=== PATIENT | male | born 1955 | race Caucasian/White ===

== ENCOUNTER → 2018-10-08 13:07 | Outpatient (CLI) | payer BC, SELFPAY ==
--- NOTE | 2018-10-08 14:05 | CA_ITS ---
PROCEDURE: 2-D M-mode and color Doppler study INDICATIONS FOR THE TEST: Chest pain COPD+ Heart Murmur Tobacco Smoking+ Palpitations Fatigue Syncope Edema+ Hypertension+Diabetes Mellitus Rheumatic Fever SOB+ENRIQUEZ Obesity Hyperlipidemia+ Family History HD Additional History CAD, PAD, CHF, ANGIOPLASTY, STENTS PATIENT INFORMATION HEIGHT: 68 WEIGHT:238 GENDER: Male B/P:138/76 2-D/M-MODE INTERPRETATION: 2-D MEASUREMENTS OBSERVED VALUES IN CMS Right Ventricular Dimension (RVDd) 2.7 Interventricular Septum (Thickness)(IVsd) 1.2 Left Ventricular Internal Dimensions(LVIDd) 5.6 Left Ventricular Posterior Wall (Thickness)(LVPWd) 1.0 Aortic Root 4.2 Aortic Cusp Separation 2.0 Left Atrial Dimensions (LAD) 3.8 2D 1. Left atrium is mildly enlarged, left ventricle is normal size, mild concentric left ventricular hypertrophy, visually estimated ejection fraction 55% with no regional wall motion abnormality. 2. The right atrium and right ventricle are mildly enlarged with normal contractility. 3. The aortic valve is minimally thickened and fibrosed. 4. The mitral and tricuspid valve are grossly normal. 5. The pulmonic valve is poorly visualized. 6. No significant pericardial effusion noted. DOPPLER INTERROGATION: Doppler interrogation of the aortic, mitral and tricuspid valvular presence of mild mitral and tricuspid regurgitation, tricuspid regurgitation jet velocity is inadequate for calculation of the right ventricular systolic pressure, grade 1 diastolic dysfunction seen with tissue Doppler evidence of raised left atrial pressure. CONCLUSION: 1. Mildly enlarged left atrium, normal left ventricular size, mild concentric left ventricular hypertrophy, visually estimated ejection fraction 55% with no regional wall motion abnormality, grade 1 diastolic dysfunction seen with tissue Doppler evidence of raised left atrial pressure. 2. Mildly enlarged right ventricle with normal contractility. 3. Mild mitral and tricuspid regurgitation 4. No significant pericardial effusion noted.
[2018-10-08 16:41] LABS: Anion Gap 16.5 mEq/L (5-15); Blood Urea Nitrogen 33 mg/dL (7-18); Calcium 8.9 mg/dL (8.5-10.1); Carbon Dioxide 25 mmol/L (21.0-32.0); Chloride 104 mmol/L (98-107); Creatinine,Serum 1.84 mg/dL (0.70-1.30); Estimated Glomerular Filt Rate 38 ml/min (>60); GFR (African American) 45 ML/MIN (>60); Glucose 76 mg/dL (74-106); Potassium 4.5 mmoL/L (3.5-5.1); Sodium 141 mmol/L (136-145)
== END ==
LOC: LAB 13:08 → RT 14:05
PROVIDERS: PCP Family Medicine; Visit Provider Nurse Practitioner Family
DX: I25.118 Atherosclerotic heart disease of native coronary artery with other forms of angina pectoris (principal); I73.9 Peripheral vascular disease, unspecified; I11.9 Hypertensive heart disease without heart failure; R60.0 Localized edema; R00.2 Palpitations; I50.32 Chronic diastolic (congestive) heart failure; I10 Essential (primary) hypertension; E78.5 Hyperlipidemia, unspecified; E78.2 Mixed hyperlipidemia; F17.200 Nicotine dependence, unspecified, uncomplicated
CPT/HCPCS: 36415; 80048; 93270; 93306

== ENCOUNTER → 2018-10-22 13:16 | Outpatient (CLI) | payer BC, SELFPAY ==
[2018-10-22 15:09] LABS: Blood Urea Nitrogen 29 mg/dL (7-18); Calcium 8.8 mg/dL (8.5-10.1); Carbon Dioxide 25 mmol/L (21.0-32.0); Chloride 108 mmol/L (98-107); Creatinine,Serum 1.88 mg/dL (0.70-1.30); Estimated Glomerular Filt Rate 37 ml/min (>60); GFR (African American) 44 ML/MIN (>60); Glucose 71 mg/dL (74-106); Sodium 141 mmol/L (136-145)
== END ==
PROVIDERS: Visit Provider Urology
DX: E78.5 Hyperlipidemia, unspecified (principal); I10 Essential (primary) hypertension; I25.10 Atherosclerotic heart disease of native coronary artery without angina pectoris; I50.30 Unspecified diastolic (congestive) heart failure; I73.9 Peripheral vascular disease, unspecified; R00.2 Palpitations; R60.9 Edema, unspecified; F17.200 Nicotine dependence, unspecified, uncomplicated
CPT/HCPCS: 36415; 80048

== ENCOUNTER → 2019-08-04 07:12 | Outpatient (CLI) | payer OTHER, MEDICAID, SELFPAY ==
--- NOTE | 2019-08-04 07:13 | NM_ITS ---
APPROVED REPORT Exam: Nuclear Stress Test Indication: Chest pain, SOB, CAD, Hx of NH, HTN, High cholesterol, Tobacco use, Family history Patient Location: Outpatient Stress Tech: Lexi Guzmán [place] Tech:Jamee Pate, ARRT, RT (R)(N) Ht: 5 ft 8 in Wt: 224 lbs HR: 55 bpm BP: 134/74 mmHg BSA: 2.14 m2 BMI: 34.0 History: Chest pain, SOB, CAD, Hx of NH, HTN, High cholesterol, Tobacco use, Family history Procedure: Patient received a 0.4 mg of intravenous Lexiscan, resting heart rate 55 bpm, resting blood pressure 134/74 mmHg, with Lexiscan maximum heart rate achived was 87 bpm which is Less than 85 % of the maximum predicted heart rate and blood pressure was 147/70 mmHg. With Lexiscan, patient denied any complaint of chest pain. Electrocardiogram Sinus rhythm right ventricular conduction delay, with Lexiscan less than 1.[address] segment depression noted from the baseline EKG. The EKG portion of the Lexiscan Myoview is nondiagnostic. Cardiac Stress and Resting SPECT Images: Cardiac Stress and Resting SPECT images were obtained using technetium 99m Myoview 32.1 mCi stress and 10.19 mCi at rest. Gated SPECT with analysis of segmental wall motion and calculation of the ejection fraction also done. Cardiac stress and resting SPECT images show partial reversible defect involving the inferior wall consistent with area of mixed ischemia and scar, computer derived ejection fraction 43% with moderate inferior wall hypokinesis, right ventricle is normal size and contractility. Conclusion: 1. The EKG portion of the Lexiscan Myoview is nondiagnostic. 2. Scintigraphic evidence of mixed ischemia and scar involving the inferior wall, computer derived ejection fraction is 43% with segmental wall motion abnormality described above, right ventricle is normal size and contractility. 3. Abnormal Lexiscan Myoview study. Electronically signed by : Azael Moran, 08/04/2019 16:51:12
--- NOTE | 2019-08-04 07:13 | CA_ITS ---
APPROVED REPORT Exam: Pharmacologic Technologist: Lexi Guzmán Ht: 5 ft 8 in Wt: 224 lbs BSA: 2.14 m2 HR: 55 bpm BP: 134/74 mmHg Indications: Shortness of Air, chest pain Medical History Medications: Furosemide (LASIX),,,,, Aspirin,,,,, Vitamin C,,,,, Albuterol,,,,, BisOPROLOL,,,,, FluTICASONE,,,,, SilDENAFIL,,,,, Prasugrel,,,,, Olmesartan,,,,, BuPROPRION,,,,, Eplerenone,,,,, Ranalazine,,,,, Stress Test Details Test: LEXISCAN HR Resting HR: 59 bpm Max Heart Rate (APMHR): 158 bpm Max HR Achieved: 95 bpm Target HR (85% APMHR): 134 bpm % of APMHR: 60 Recovery HR: 79 bpm BP Resting BP: 134.0/74.0 mmHg Max BP: 147.0/70.0 mmHg Recovery BP: 139.0/76.0 mmHg ECG Clinical Exercise duration: 04:00 min Highest Stage Achieved: Stress ECG Conclusion Resting ECG: Sinus bradycardia with right bundle branch block Lexiscan portion completed. Patient complained of shortness of breath during infusion. Symptoms: Shortness of breath during peak infusion. Resolved in recovery. No chest pain. Arrhythmias/Ectopy: Occasional PVC ST-T Changes: Less than 1.[address] depression. Conclusion: Images to follow. Test Summary REST . . . . . . . Resting REST 03:56 . . 59 . 134/ 74 . . Stage 1 . . . . . . . Myoview Injected Stage 1 01:00 . . 88 . . . . Stage 2 01:00 . . 88 . 147/ 70 . . Stage 3 01:00 . . 80 . 126/ 70 . . Stage 4 01:00 . . 76 . 133/ 70 . Stop exercise at 04:00 RECOVERY 01:00 . . 77 . . . . RECOVERY 02:00 . . 74 . 133/ 69 . . RECOVERY 03:00 . . 79 . 133/ 69 . . RECOVERY 04:00 . . 74 . 139/ 76 . . RECOVERY 04:02 . . 74 . 139/ 76 . . Electronically signed by : Azael Moran, 08/04/2019 16:49:03
--- NOTE | 2019-08-04 07:13 | CA_ITS ---
APPROVED REPORT EXAM: Comprehensive 2D, Doppler, and color-flow Echocardiogram Sales Porter: Karyna Rhoades CRT Ht: 5 ft 8 in Wt: 225lbs BSA: 2.15 BP: 135/66 mmHg Indications: Chest Pain, COPD, Shortness of Breath, Hyperlipidemia, Hypertension/HDD, smoker, cad, pad Echo Enhancing Agent Indication: Endocardial border delineation Agent(s) / Amount(s) Used: Definity 2 cc M-Mode Dimensions RVDd 2.89 cm (0.9-2.6) LVDd 5.70 cm (3.5-5.7) LVDs 4.10 cm (3.5-5.7) IVSd 1.98 cm (0.6-1.1) PWd 0.61 cm (0.6-1.1) EF (Teich) 53.60% FS 28.10% EDV (Teich) 160.00 mL ESV (Teich) 74.20 mL LV Diastology E/A Ratio 0.77 Mitral Valve MV A Velocity 68.00 (40-130 cm/s) Left Ventricle Left atrium is mildly enlarged, left ventricle is normal size, mild concentric left ventricular hypertrophy, visually estimated ejection fraction of 40 to 45%, there is marked hypokinesis involving the inferior and inferior basal wall, Definity contrast was placed to delineate the endocardial surfaces. There is no left ventricular thrombus seen. Grade 1 diastolic dysfunction seen without tissue Doppler evidence of raise left atrial pressure. Right Ventricle Right atrium and right ventricle are mildly enlarged with normal contractility. Aortic Valve Aortic valve is minimally thickened and fibrosed, there is no aortic stenosis or aortic insufficiency. Mitral Valve Mitral valve leaflets are minimally thickened, there is mild mitral regurgitation. Tricuspid Valve Tricuspid valve is grossly normal, there is mild tricuspid regurgitation. Tricuspid regurgitation jet velocity is inadequate for calculation of the right ventricular systolic pressure. Pulmonic Valve Pulmonic valve is poorly visualized. Great Vessels Aortic root is normal size. Pericardium No significant pericardial effusion noted. Conclusion 1. Biatrial enlargement, normal left ventricular size, mild concentric left ventricular hypertrophy, visually estimated ejection fraction 40 to 45% with multiple segmental wall motion abnormality described above, Definity contrast was tested delineate the endocardial surfaces, there is no left ventricular thrombus seen. 2. Mildly enlarged right ventricle with normal contractility. 3. Mild mitral and tricuspid regurgitation. 4. No significant pericardial effusion noted. Electronically signed by : Azael Moran, 08/04/2019 18:55:28
--- NOTE | 2019-08-04 09:16 | HMH.ITSHM ---
Current Home Medications as stated by this patient Solomon Thurman or insurance account representative. []SILDENAFIL RANOLAZINE PRASUGREL OLMESARTAN NITRO FUROSEMIDE FLUTICASONE EPLERENONE BUPROPION BISOPROLOL ASA VITAMIN C ALBUTEROL
== END ==
PROVIDERS: PCP Family Medicine; Visit Provider Urology
DX: I25.118 Atherosclerotic heart disease of native coronary artery with other forms of angina pectoris (principal); R06.02 Shortness of breath; R60.9 Edema, unspecified; I50.30 Unspecified diastolic (congestive) heart failure; I73.9 Peripheral vascular disease, unspecified; E78.5 Hyperlipidemia, unspecified; F17.200 Nicotine dependence, unspecified, uncomplicated; I10 Essential (primary) hypertension; E78.2 Mixed hyperlipidemia; I11.0 Hypertensive heart disease with heart failure
CPT/HCPCS: 78452; 93017; 93306; A9502; J2785; Q9957

== ENCOUNTER 2019-09-02 08:15 | Day surgery (SDC) | payer MEDICAID, SELFPAY ==
[2019-09-02] VITALS (12 sets, daily range): BP systolic 86–139; BP diastolic 36–74; PULSE 53–64; RESP 16–18; TEMP 36.6; O2SAT 93–98; BMI 33.7
--- NOTE | 2019-09-02 | IR_ITS ---
APPROVED REPORT Patient Location: Outpatient PROCEDURES Left heart catheterization Left ventriculogram Selective coronary angiogram INDICATION Known coronary artery disease, High risk abnormal Myoview Informed consent was obtained prior to the procedure. COMPLICATIONS None Estimated Blood Loss: less than 10 ml TECHNIQUE One percent lidocaine used to anesthetize the right groin. The right femoral artery was accessed via the Seldinger technique and a 5 [place] sheath was placed in the right femoral artery. A JL 4, JR4 catheter were used to perform left heart catheterization, left ventriculogram selective coronary angiography as well as selective engagement of the 2 vein grafts and the left internal mammary artery. At the end of the procedure the patient was transferred to the postop holding area in stable condition for sheath removal. ANGIOGRAPHIC RESULTS The left main artery Normal The left anterior descending artery Has a stent from the proximal through mid segment which is widely patent with mild in-stent restenosis nothing greater than 30% with excellent proximal distal transitioning. The circumflex artery Nondominant with mild 20% atheromatous plaque The right coronary artery Is a dominant vessel and has a stent throughout the mid segment. Which is widely patent. Proximally there is a 20% stenosis going into the stent and distally there is a 10% stenosis as a stent transitions. There are additional mid vessel 20% stenoses. Distally there is a stent which has 30% diffuse in-stent restenosis. A stent in the posterior lateral ventricular branch has mid vessel 50% concentric stenosis followed by a 50% stenosis distal to the stent. The vessel is approximately 2.25 mm in diameter. The posterior descending artery has an ostial 40% stenosis followed by mid vessel 40% stenoses The MORA ventriculogram reveals Moderate left ventricular dilatation mild anterior wall hypokinesis mild to moderately hypokinetic inferior wall estimated ejection fractions 40% The left ventricular end-diastolic pressure 20 mmHg IMPRESSION Coronary artery disease as described above Reduced ejection fraction Mildly elevated LVEDP PLAN 1. Medical management for ischemic heart disease and left ventricular dysfunction 2. LDL less than 55 3. Avoidance of tobacco products 4. Risk factor modification Electronically signed by : Sharif Gómez, 09/02/2019 10:48:36
[2019-09-02 08:50] LABS: Basophils % 0.5 % (0.1-2.0); Chloride 109 mmol/L (98-107); Eosinophils # 0.5 K/mm3 (0.0-0.4); Eosinophils % 6.3 % (0.1-12.0); Hemoglobin 12.6 g/dL (14.1-18.0); Lymphocytes # 1.9 K/mm3 (0.7-4.5); Lymphocytes % 24.1 % (10-50); Mean Corpuscular HGB Conc 33.3 g/dL (31.8-35.4); Mean Corpuscular Hemoglobin 31.4 pg (27.0-31.2); Mean Corpuscular Volume 94.5 fl (80-94); Mean Platelet Volume 7.3 fl (7.4-10.4); Monocytes # 0.5 K/mm3 (0.1-1.0); Monocytes % 6.3 % (1.7-9.3); Neutrophils # 4.8 K/mm3 (1.8-7.8); Neutrophils % 62.8 % (37.0-80.0); Platelet Count 240 K/mm3 (142-424); Potassium 4.7 mmoL/L (3.5-5.1); Red Blood Count 4.02 M/mm3 (4.60-6.20); Red Cell Distribution Width 14.2 % (11.5-17.5); Sodium 139 mmol/L (136-145); White Blood Count 7.7 K/mm3 (4.8-10.8)
[2019-09-02 08:53] LABS: Anion Gap 11.7 mEq/L (5-15); Blood Urea Nitrogen 34 mg/dl (9-20); Carbon Dioxide 23 mmol/L (22.0-30.0); Creatinine Clearance Estimated 61 mL/min (50-200); Estimated Glomerular Filt Rate 38 ml/min (>60); GFR (African American) 46 ML/MIN (>60); Glucose 103 mg/dl (74-100)
== END 2019-09-02 13:26 | disposition home or self-care (01) ==
LOC: CATHLAB 08:16
PROVIDERS: PCP Family Medicine; Visit Provider Internal Medicine
DX: I25.118 Atherosclerotic heart disease of native coronary artery with other forms of angina pectoris (principal); I11.0 Hypertensive heart disease with heart failure; I50.32 Chronic diastolic (congestive) heart failure; Z72.0 Tobacco use; T82.855A Stenosis of coronary artery stent, initial encounter; Z95.5 Presence of coronary angioplasty implant and graft; Z79.899 Other long term (current) drug therapy
CPT/HCPCS: 80048; 85025; 93458; 99152; C1725; C1769; J1644; Q9967

== ENCOUNTER → 2020-07-12 07:00 | Outpatient (CLI) | payer OTHER, SELFPAY ==
--- NOTE | 2020-07-12 07:04 | CA_ITS ---
APPROVED REPORT Exam: Pharmacologic Technologist: Chiquita Anthony, Ht: 5 ft 8 in Wt: 217 lbs BSA: 2.12 m2 HR: 68 bpm BP: 146/84 mmHg Rhythm: NSR,PVC'S,CANNOT R/O OLD INFERIOR ID Medical History Medical History: HTN, Hyperlipidemia Medications: Aspirin,,,,, Flonase,,,,, Lasix,,,,, Crestor,,,,, Albuterol,,,,, BisOPROLOL,,,,, Benicar,,,,, Effient,,,,, BuPROPION,,,,, Ranexa,,,,, Nirtoglycerin,,,,, Allergies: No known drug allergies Cardiac Risk Factors: HTN, Hyperlipidemia, FHX of CAD Stress Test Details Test: LEXISCAN HR Resting HR: 74 bpm Max Heart Rate (APMHR): 157 bpm Max HR Achieved: 108 bpm Target HR (85% APMHR): 133 bpm % of APMHR: 68 BP Resting BP: 146/84 mmHg Max BP: 154/74 mmHg Recovery BP: 139.0/81.0 mmHg ECG Resting ECG: NSR,PVC'S,CANNOT R/O OLD INFERIOR ID Clinical Exercise duration: 04:00 min Highest Stage Achieved: Exercise capacity: 1.0 METs Stress ECG Conclusion DURING INFUSION PATIENT HAD SOA,MALAISE,AND STOMACH DISCOMFORT. NO CP. FREQUENT MULTI-FOCAL PVC'S,ONE V.TRIPLET. OCCASIONAL V.COUPLET. NO SIGNIFICANT ST-T CHANGES. UNREMARKABLE LEXISCAN STRESS. MYOVIEW IMAGES REPORTED SEPARATELY. Electronically signed by : Azael Moran, 07/12/2020 18:21:38
--- NOTE | 2020-07-12 07:04 | CA_ITS ---
APPROVED REPORT EXAM: Comprehensive 2D, Doppler, and color-flow Echocardiogram [place] Aide: Karyna Rhoades CRT Ht: 5 ft 8 in Wt: 217lbs BSA: 2.12 BP: 110/69 mmHg Indications: Chest Pain, COPD, Shortness of Breath, CAD, Hyperlipidemia, Hypertension/HDD, gerd, smoker 2D Dimensions LVOT 1.99 cm (M/F) 1.5-2.5 LA Volume 66.60 mL LA Volume Index 31.40 mL/m2 (M/F) 16-34 M-Mode Dimensions RVDd 3.29 cm (0.9-2.6) LA Diam 4.10 cm (1.9-4.0) LVDd 6.26 cm (3.5-5.7) Ao Diam 4.04 cm (2.0-3.7) LVDs 4.58 cm (3.5-5.7) IVSd 1.75 cm (0.6-1.1) PWd 0.57 cm (0.6-1.1) EF (Teich) 51.40% FS 26.80% EDV (Teich) 198.30 mL TAPSE 2.78 (<1.7) ESV (Teich) 96.30 mL LV Diastology E Decel Time 300.00 (160-240 msec) E/A Ratio 0.76 MED E' 6.90 (< 7 cm/sec) MED A' 9.40 cm/s E'/MED E' Ratio 9.57 (>14) LAT E' 11.40 (<10 cm/sec) LAT A' 12.30 cm/s E/LAT E' Ratio 5.79 (>14) Aortic Valve AO Peak GR. 6.00 mmHg Mitral Valve MV E Max Jason. 66.00 (40-130 cm/s) MV A Velocity 86.00 (40-130 cm/s) E/A Ratio 0.76 MV Decel. Time 300.00 (160-240 ms) MV PHT 88.00 ms Pulmonary Valve PV Peak Velocity 125.00 (50-150 cm/s) Tricuspid Valve TR P. Velocity 196.00 cm/s Left Ventricle Technically difficult study because of the patient factors and poor acoustic windows. Left atrium is mildly enlarged, left ventricle is normal size, mild concentric left ventricular hypertrophy, visually estimated ejection fraction approximately 40%, there is marked hypokinesis involving the inferior, inferior basal and apical wall. Diastolic parameters are inconclusive. Right Ventricle Right atrium and right ventricle are mildly enlarged with normal contractility. Aortic Valve Aortic valve is minimally thickened and fibrosed, there is no aortic stenosis or aortic insufficiency. Mitral Valve Mitral valve is grossly normal, there is mild mitral regurgitation. Tricuspid Valve Tricuspid grossly normal, there is mild tricuspid regurgitation, tricuspid regurgitation jet velocity is inadequate for calculation of the right ventricular systolic pressure. Pulmonic Valve Pulmonic valve is poorly visualized. Great Vessels Aortic root is normal size. Pericardium No significant pericardial effusion noted. Conclusion 1. Mild biatrial enlargement, normal left ventricular size, mild concentric left ventricular hypertrophy, visually estimated ejection fraction 40% with multiple segmental wall motion abnormality described above, technically difficult study, endocardial borders are poorly visualized. Diastolic parameters are inconclusive. 2. Mildly enlarged right ventricle with normal contractility. 3. Mild mitral and tricuspid regurgitation. 4. No significant pericardial effusion noted. Electronically signed by : Azael Moran, 07/12/2020 19:21:57
--- NOTE | 2020-07-12 07:04 | NM_ITS ---
APPROVED REPORT Exam: Nuclear Stress Test Indication: Chest pain, SOB, CAD, Hx of NH, HTN, High cholesterol, Tobacco use, Family history Patient Location: Outpatient Stress Tech: Chiquita Anthony [place] Tech:Jamee Pate, ARRT, RT (R)(N) Ht: 5 ft 8 in Wt: 216 lbs HR: 68 bpm BP: 146/84 mmHg BSA: 2.11 m2 BMI: 32.8 History: Chest pain, SOB, CAD, Hx of NH, HTN, High cholesterol, Tobacco use, Family history Procedure: Patient received a 0.4 mg of intravenous Lexiscan, resting heart rate 68 bpm, resting blood pressure 146/84 mmHg, with Lexiscan maximum heart rate achived was 94 bpm which is Less than 85 % of the maximum predicted heart rate and blood pressure was 154/74 mmHg. With Lexiscan, patient denied any complaint of chest pain. Electrocardiogram Resting electrocardiogram showed sinus rhythm, with Lexiscan there is less than 1.[address] segment depression noted from the baseline EKG. The EKG portion of the Lexiscan is nondiagnostic. Cardiac Stress and Resting SPECT Images: Cardiac Stress and Resting SPECT images were obtained using technetium 99m Myoview 31.2 mCi stress and 10.21 mCi at rest. Gated SPECT for analysis of segmental wall motion and calculation of the ejection fraction also done. Prone images were also obtained. Cardiac stress and resting SPECT images show fixed defect involving the inferior and apical wall consistent with prior myocardial scarring without significant sanjay-infarct ischemia, computer derived ejection fraction 36% with marked hypokinesis involving the inferior and apical wall. Right ventricle is normal size and contractility. Conclusion: 1. The EKG portion of the Lexiscan is nondiagnostic. 2. Scintigraphic evidence of myocardial scarring involving the inferior and apical wall without sanjay-infarct ischemia. Computer derived ejection fraction 36% with segmental wall motion abnormality described above, right ventricle is normal size and contractility. 3. Abnormal Lexiscan Myoview study. Electronically signed by : Azael Moran, 07/12/2020 18:31:03
--- NOTE | 2020-07-12 08:14 | HMH.ITSHM ---
Current Home Medications as stated by this patient Solomon Thurman or artist's representative. []SILDENAFIL ROSUVASTATIN RANOLAZINE PRASUGREL OLMESARTAN NITRO FUROSEMIDE FLUTICASONE BUPROPION BISOPROLOL ASA ALBUTEROL VITAMIN C
== END ==
PROVIDERS: Visit Provider Nurse Practitioner Family
DX: R06.02 Shortness of breath (principal); E78.5 Hyperlipidemia, unspecified; I11.9 Hypertensive heart disease without heart failure; I20.9 Angina pectoris, unspecified; I73.9 Peripheral vascular disease, unspecified; F17.200 Nicotine dependence, unspecified, uncomplicated; Z98.890 Other specified postprocedural states
CPT/HCPCS: 78452; 93017; 93306; A9502; J2785

== ENCOUNTER → 2020-07-21 07:14 | Outpatient (CLI) | payer OTHER, SELFPAY ==
[2020-07-21 07:38] LABS: Basophils % 0.3 % (0.1-2.0); Eosinophils # 0.2 K/mm3 (0.0-0.4); Eosinophils % 2.4 % (0.1-12.0); Hematocrit 44.8 % (42.0-52.0); Hemoglobin 14.4 g/dL (14.1-18.0); Lymphocytes # 1.9 K/mm3 (0.7-4.5); Lymphocytes % 26.5 % (10-50); Mean Corpuscular HGB Conc 32.2 g/dL (31.8-35.4); Mean Corpuscular Hemoglobin 30.2 pg (27.0-31.2); Mean Corpuscular Volume 93.8 fl (80-94); Mean Platelet Volume 7.1 fl (7.4-10.4); Monocytes # 0.4 K/mm3 (0.1-1.0); Neutrophils # 4.7 K/mm3 (1.8-7.8); Neutrophils % 64.7 % (37.0-80.0); Platelet Count 240 K/mm3 (142-424); Red Blood Count 4.77 M/mm3 (4.60-6.20); Red Cell Distribution Width 14.9 % (11.5-17.5); White Blood Count 7.2 K/mm3 (4.8-10.8)
[2020-07-21 08:00] LABS: Chloride 108 mmol/L (98-107)
[2020-07-21 08:01] LABS: Potassium 4.6 mmoL/L (3.5-5.1); Sodium 140 mmol/L (136-145)
[2020-07-21 08:04] LABS: Anion Gap 15.6 mEq/L (5-15); Blood Urea Nitrogen 18 mg/dl (9-20); Carbon Dioxide 21 mmol/L (22.0-30.0); Estimated Glomerular Filt Rate 61 ml/min (>60); GFR (African American) 74 ML/MIN (>60); Glucose 104 mg/dl (74-100)
[2020-07-21 08:25] LABS: Coronavirus 19 IgG Antibody Negative (Negative); Coronavirus 19 IgM Antibody Negative (Negative)
== END ==
PROVIDERS: Visit Provider Internal Medicine
DX: Z01.812 Encounter for preprocedural laboratory examination (principal); Z20.822 Contact with and (suspected) exposure to COVID-19; R06.02 Shortness of breath; I11.9 Hypertensive heart disease without heart failure; I20.9 Angina pectoris, unspecified; E78.5 Hyperlipidemia, unspecified; R94.39 Abnormal result of other cardiovascular function study; I73.9 Peripheral vascular disease, unspecified; F17.200 Nicotine dependence, unspecified, uncomplicated; Z98.890 Other specified postprocedural states
CPT/HCPCS: 36415; 80048; 85025; 86328

== ENCOUNTER 2020-07-22 09:07 | Day surgery (SDC) | payer OTHER, SELFPAY ==
[2020-07-22] VITALS (10 sets, daily range): BP systolic 102–150; BP diastolic 50–92; PULSE 57–68; RESP 16–18; TEMP 36.7; O2SAT 94–98; BMI 33.1
--- NOTE | 2020-07-22 07:03 | IR_ITS ---
APPROVED REPORT Patient Location: Outpatient Cook Relief: LYRIC Pedraza RT (R) PROCEDURES Left heart catheterization Left ventriculogram Selective coronary angiogram INDICATION Known coronary disease, Abnormal Myoview, Accelerated angina pectoris, Informed consent was obtained prior to the procedure. COMPLICATIONS None Estimated Blood Loss: Less than 10 mls TECHNIQUE One percent lidocaine used to anesthetize the right anterior aspect of the wrist. The right radial artery was accessed via the Seldinger technique. A 6 Swedish sheath was placed in the right radial artery. 2.5 mg of verapamil, 800 mcg of nitroglycerin, 1mg Lidocaine and 5000 U Heparin were given through the arterial sheath. The trap catheter was also used to perform left heart catheterization, left ventriculogram and selective coronary angiogram. At the end of the procedure the sheath was removed good hemostasis was achieved using Traclet band, patient was transferred to the postop holding area in stable condition. ANGIOGRAPHIC RESULTS The left main artery Normal The left anterior descending artery Has stents in the proximal through mid segment. Proximal to the stents are widely patent the mid segment has concentric 30% in-stent restenosis with ANTOINE-3 flow down the vessel. All the diagonal arteries are widely patent with excellent flow. The diagonal arteries are small vessels The circumflex artery Nondominant yet still large vessel with proximal 10 to 20% stenosis and a 20% stenosis at the junction of the first obtuse marginal artery. First obtuse marginal artery has an ostial 40% stenosis with proximal 30% stenosis. The second third and fourth obtuse marginal artery small vessels and patent The right coronary artery Is a dominant vessel with stents in the proximal through mid segment which are widely patent free of in-stent restenosis with excellent proximal distal transitioning. The remaining vessel has distal 30% stenoses. The posterior descending artery has diffuse 20 and 30% stenosis with a widely patent mid vessel stent The MORA ventriculogram reveals Reduced ejection fraction of 45% with mid anterior apical and inferoapical hypokinesis The left ventricular end-diastolic pressure 15 mmHg IMPRESSION Coronary artery disease as described above Reduced ejection fraction with regional wall motion abnormality Borderline elevated LVEDP PLAN 1. Continue medical management Electronically signed by : Sharif Gómez, 07/25/2020 12:58:49
== END 2020-07-22 13:29 | disposition home or self-care (01) ==
LOC: CATHLAB 09:09
PROVIDERS: PCP Family Medicine; Visit Provider Internal Medicine
DX: I25.118 Atherosclerotic heart disease of native coronary artery with other forms of angina pectoris (principal); I11.0 Hypertensive heart disease with heart failure; K21.9 Gastro-esophageal reflux disease without esophagitis; T82.855A Stenosis of coronary artery stent, initial encounter; Y83.1 Surgical operation with implant of artificial internal device as the cause of abnormal reaction of the patient, or of later complication, without mention of misadventure at the time of the procedure; J43.8 Other emphysema; I73.9 Peripheral vascular disease, unspecified; J43.9 Emphysema, unspecified; I50.40 Unspecified combined systolic (congestive) and diastolic (congestive) heart failure; I42.9 Cardiomyopathy, unspecified; F17.200 Nicotine dependence, unspecified, uncomplicated; E78.2 Mixed hyperlipidemia; I50.32 Chronic diastolic (congestive) heart failure
CPT/HCPCS: 93458; 99152; C1725; C1769; J1644; Q9967

== ENCOUNTER → 2021-04-20 10:06 | Outpatient (CLI) | payer MEDICARE, SELFPAY ==
--- NOTE | 2021-04-20 10:10 | CA_ITS ---
APPROVED REPORT EXAM: Comprehensive 2D, Doppler, and color-flow Echocardiogram Advance Scout: Georgia Diego RVT Ht: 5 ft 8 in Wt: 223lbs BSA: 2.14 BP: 150/89 mmHg Indications: CAD,HTN,COPD,HLD,SMOKER,OBESITY,GERD,SOA TDS Echo Enhancing Agent Indication: Endocardial border delineation Agent(s) / Amount(s) Used: Definity 2 cc 2D Dimensions LVOT 2.17 cm (M/F) 1.5-2.5 LA Volume 41.50 mL LA Volume Index 19.39 mL/m2 (M/F) 16-34 M-Mode Dimensions RVDd 2.65 cm (0.9-2.6) LA Diam 3.54 cm (1.9-4.0) LVDd 6.52 cm (3.5-5.7) Ao Diam 3.60 cm (2.0-3.7) LVDs 5.11 cm (3.5-5.7) IVSd 0.68 cm (0.6-1.1) PWd 0.95 cm (0.6-1.1) EF (Teich) 42.80% FS 21.60% EDV (Teich) 217.50 mL TAPSE 1.72 (<1.7) ESV (Teich) 124.40 mL LV Diastology E Decel Time 193.00 (160-240 msec) E/A Ratio 0.7 MED E' 7.40 (< 7 cm/sec) E'/MED E' Ratio 6.12 (>14) LAT E' 7.30 (<10 cm/sec) E/LAT E' Ratio 6.21 (>14) Mitral Valve MV E Max Jason. 45.00 (40-130 cm/s) MV A Velocity 68.00 (40-130 cm/s) E/A Ratio 0.67 MV Decel. Time 193.00 (160-240 ms) MV PHT 57.00 ms Pulmonary Valve PV Peak Velocity 46.00 (50-150 cm/s) Tricuspid Valve TR P. Velocity 217.00 cm/s RAP Estimate 10.00 mmHg RVSP 28.80 mmHg Left Ventricle Technically very difficult study because of the patient factors and poor acoustic windows, Definity contrast was utilized to delineate the endocardial surfaces. Left atrium is mildly enlarged, left ventricle is mildly dilated, mild concentric left ventricular hypertrophy, visually estimated ejection fraction 40%, there is marked hypokinesis involving the basal septum and inferior basal wall. Grade 1 diastolic dysfunction seen without tissue Doppler evidence of raise left atrial pressure. Right Ventricle Right atrium and right ventricle are mildly enlarged, contractility of the right ventricle appears to be mildly reduced. Aortic Valve Aortic valve is minimally thickened and fibrosed, without significant aortic stenosis or aortic insufficiency. Mitral Valve Mitral valve leaflets are minimally thickened, there is mild mitral regurgitation. Tricuspid Valve Tricuspid valve is grossly normal, there is mild tricuspid regurgitation jet velocity is inadequate for calculation of the right ventricular systolic pressure. Pulmonic Valve Pulmonic valve is poorly visualized. Great Vessels Aortic root is normal size. Inferior vena cava is poorly visualized. Pericardium No significant pericardial effusion noted. Conclusion 1. Biatrial enlargement, normal left ventricular size, mild concentric left ventricular hypertrophy, visually estimated ejection fraction 40% with multiple segmental wall motion abnormality described above, grade 1 diastolic dysfunction seen without tissue Doppler evidence of raise left atrial pressure, Definity contrast was utilized to delineate the endocardial surfaces. There is no left ventricular thrombus seen. 2. Mildly enlarged right ventricle with mild reduced contractility. 3. Mild mitral and tricuspid regurgitation. 4. No significant pericardial effusion noted. 5. Inferior vena cava is poorly visualized. Electronically signed by : Azael Moran MD 04/21/2021 11:01:54
== END ==
PROVIDERS: Visit Provider Urology
DX: E66.09 Other obesity due to excess calories (principal); E78.2 Mixed hyperlipidemia; F17.200 Nicotine dependence, unspecified, uncomplicated; I11.0 Hypertensive heart disease with heart failure; I25.10 Atherosclerotic heart disease of native coronary artery without angina pectoris; I73.9 Peripheral vascular disease, unspecified; J43.8 Other emphysema; K21.9 Gastro-esophageal reflux disease without esophagitis; R06.02 Shortness of breath; Z68.33 Body mass index [BMI] 33.0-33.9, adult
CPT/HCPCS: 93306; Q9957

== ENCOUNTER → 2022-04-30 06:45 | Outpatient (CLI) | payer MEDICARE, OTHER, SELFPAY ==
--- NOTE | 2022-04-30 06:47 | CA_ITS ---
APPROVED REPORT Exam: Pharmacologic Technologist: Lexi Guzmán Ht: 5 ft 8 in Wt: 225 lbs BSA: 2.15 m2 HR: 50 bpm BP: 153/76 mmHg Indications: Shortness of Air, chest pain Medical History Medications: Aspirin,,,,, Vitamin C,,,,, Flonase,,,,, Albuterol,,,,, BisOPROLOL,,,,, Nitroglycerin,,,,, Prasugrel,,,,, Olmesartan,,,,, Trelegy-Ellipta,,,,, Furosemide,,,,, Stress Test Details Test: LEXISCAN HR Resting HR: 63 bpm Max Heart Rate (APMHR): 155.399055 bpm Max HR Achieved: 86 bpm Target HR (85% APMHR): 131.109967 bpm % of APMHR: 55.48 Recovery HR: 66 bpm BP Resting BP: 153.0/76.0 mmHg Max BP: 169.0/78.0 mmHg Recovery BP: 169.0/78.0 mmHg ECG Resting ECG: Sinus rhythm with PVCs Clinical Exercise duration: 04:00 min Highest Stage Achieved: Stress ECG Conclusion Symptoms: Shortness of air with Lexiscan infusion. No chest pain. Arrhythmias/Ectopy: Sinus rhythm with PVCs(frequent), ventricular couplet. ST-T Changes: < 1.[address] segment depression. Test Summary REST . . . . . . . Resting REST 13:14 . . 63 . 153/ 76 . . Stage 1 . . . . . . . Myoview Injected Stage 1 01:00 . . 80 . . . . Stage 2 01:00 . . 79 . 168/ 82 . . Stage 3 01:00 . . 76 . 168/ 84 . . Stage 4 01:00 . . 72 . 162/ 79 . Stop exercise at 04:00 RECOVERY 01:00 . . 71 . 127/108 . . RECOVERY 02:00 . . 67 . 127/108 . . RECOVERY 03:00 . . 65 . 169/ 78 . . RECOVERY 03:14 . . 69 . 169/ 78 . . Electronically signed by : Azael Moran MD 04/30/2022 13:07:14
--- NOTE | 2022-04-30 06:47 | NM_ITS ---
APPROVED REPORT Exam: Nuclear Stress Test Indication: Chest pain, SOB, HTN, CAD, Hx of DE, High cholesterol, Tobacco use, Family history Patient Location: Outpatient Stress Tech: Lexi Guzmán [place] Tech:Jamee Pate, ARRT, RT (R)(N) Ht: 5 ft 8 in Wt: 225 lbs HR: 63 bpm BP: 153/76 mmHg BSA: 2.15 m2 TID: 1.04 BMI: 34.2 History: Chest pain, SOB, HTN, CAD, Hx of DE, High cholesterol, Tobacco use, Family history Procedure: Patient received 0.4 mg of intravenous Lexiscan, resting heart rate 63 bpm, resting blood pressure 153/76 mmHg, with Lexiscan maximum heart rate achieved was 86 bpm which is Less than 85 % of the maximum predicted heart rate and blood pressure was 169/78 mmHg. With Lexiscan, patient denied any complaint of chest pain. Electrocardiogram Resting electrocardiogram shows sinus rhythm, with Lexiscan the less than 1.[address] segment depression noted from the baseline EKG. The EKG portion of the Lexiscan is nondiagnostic. Cardiac Stress and Resting SPECT Images: Cardiac Stress and Resting SPECT images were obtained using technetium 99m Myoview 30.0 mCi stress and 10.88 mCi at rest. Gated SPECT analysis of segmental wall motion and calculation of the ejection fraction also done. Prone images were also obtained. Cardiac stress and rest SPECT images show fixed defect in the inferior wall consistent with a myocardial scarring without significant sanjay-infarct ischemia, computer derived ejection fraction 33% with moderate inferior wall hypokinesis. Left ventricle is dilated with stress and rest. Right ventricle is normal size and contractility. Conclusion: 1. The EKG portion of the Lexiscan is nondiagnostic. 2. Scintigraphic evidence of myocardial scarring involving the inferior wall, without significant sanjay-infarct ischemia, completed ejection fraction of 33% with segmental wall motion abnormality described above, left ventricle is dire both stress and rest, right ventricle is normal size and contractility. 3. Abnormal Lexiscan Myoview study. Electronically signed by : Azael Moran MD 04/30/2022 13:15:42
--- NOTE | 2022-04-30 06:47 | CA_ITS ---
APPROVED REPORT EXAM: Comprehensive 2D, Doppler, and color-flow Echocardiogram Global Sourcing Manager: Karyna Rhoades CRT Ht: 5 ft 8 in Wt: 225lbs BSA: 2.15 BP: 138/84 mmHg Indications: Chest Pain, COPD, Shortness of Breath, CAD, Hyperlipidemia, Hypertension/HDD, stents, CEA, EF 40% on echo 04/20/21 2D Dimensions LVOT 1.88 cm (M/F) 1.5-2.5 LA Volume 54.70 mL LA Volume Index 24.90 mL/m2 (M/F) 16-34 M-Mode Dimensions RVDd 3.69 cm (0.9-2.6) LA Diam 3.31 cm (1.9-4.0) LVDd 6.98 cm (3.5-5.7) Ao Diam 4.42 cm (2.0-3.7) LVDs 5.38 cm (3.5-5.7) IVSd 0.92 cm (0.6-1.1) PWd 0.68 cm (0.6-1.1) EF (Teich) 44.80% FS 22.90% EDV (Teich) 253.80 mL TAPSE 2.73 (<1.7) ESV (Teich) 140.10 mL LV Diastology E Decel Time 270.00 (160-240 msec) E/A Ratio 0.83 MED E' 3.90 (< 7 cm/sec) MED A' 8.20 cm/s E'/MED E' Ratio 16.54 (>14) LAT E' 6.20 (<10 cm/sec) LAT A' 11.80 cm/s E/LAT E' Ratio 10.40 (>14) Aortic Valve AO Peak GR. 5.80 mmHg Mitral Valve MV A Velocity 77.00 (40-130 cm/s) E/A Ratio 0.83 MV Decel. Time 270.00 (160-240 ms) Pulmonary Valve PV Peak Velocity 188.00 (50-150 cm/s) Tricuspid Valve TR P. Velocity 119.00 cm/s RAP Estimate 10.00 mmHg RVSP 15.60 mmHg Left Ventricle Left atrium is mildly enlarged, the follicular is normal size, mild concentric left ventricular hypertrophy, estimated ejection fraction 45%, there is marked hypokinesis involving the basal septum and inferior basal wall. Grade 1 diastolic dysfunction seen without tissue Doppler evidence of late left atrial pressure. Right Ventricle Right atrium and right ventricular mildly enlarged with normal contractility. Aortic Valve Aortic valve is minimally thickened and fibrosed there is no aortic stenosis or aortic insufficiency. Mitral Valve Mitral valve is grossly normal, there is mild mitral regurgitation. Tricuspid Valve Tricuspid valve grossly normal, there is mild tricuspid regurgitation, tricuspid regurgitation jet plus is inadequate for calculation of the right ventricular systolic pressure. Pulmonic Valve Pulmonic valve is poorly visualized. Great Vessels Aortic root is normal size. Inferior vena cava is poorly visualized. Pericardium No significant pericardial effusion noted. Conclusion 1. Mild biatrial enlargement, normal left ventricular size, mild concentric left ventricular hypertrophy, estimated ejection fraction 45% with segmental wall motion abnormality described above, grade 1 diastolic dysfunction seen without tissue Doppler evidence of trace left atrial pressure. 2. Mildly enlarged right ventricle with normal contractility. 3. Mild mitral and tricuspid regurgitation. 4. No significant pericardial effusion noted. 5. Inferior vena cava is poorly visualized. Electronically signed by : Azael Moran MD 04/30/2022 17:12:12
--- NOTE | 2022-04-30 08:53 | HMH.ITSHM ---
Current Home Medications as stated by this patient Solomon Thurman or telemarketing representative. []PRAZUGREL OLMESARTAN NITRO FUROSEMIDE FLUTICASONE BUPROPION BIOSPROLOL ASA VITAMIN C ALBUTEROL
== END ==
PROVIDERS: PCP Family Medicine; Visit Provider Nurse Practitioner Family
DX: R06.02 Shortness of breath; I20.8 Other forms of angina pectoris
CPT/HCPCS: 78452; 93017; 93306; A9502; J2785

== ENCOUNTER 2022-08-02 09:04 | Day surgery (SDC) | payer MEDICARE, SELFPAY ==
[2022-08-02] VITALS (11 sets, daily range): BP systolic 107–187; BP diastolic 66–103; PULSE 53–67; RESP 16–19; O2SAT 95–99; BMI 35.1
--- NOTE | 2022-08-02 07:23 | IR_ITS ---
APPROVED REPORT Patient Location: Outpatient Drill Press Operator For Metal: LYRIC Odonnell RT (R) PROCEDURES Selective coronary angiogram INDICATION High risk abnormal Myoview, Known coronary artery disease, Systolic congestive heart failure ejection fraction 33% Informed consent was obtained prior to the procedure. COMPLICATIONS None Estimated Blood Loss: Less than 10 mls TECHNIQUE One percent lidocaine used to anesthetize the right anterior aspect of the wrist. The right radial artery was accessed via the Seldinger technique. A 6 Macedonian sheath was placed in the right radial artery. 150 mg magnesium sulfate, 800 mcg of nitroglycerin, 1mg Lidocaine and 5000 U Heparin were given through the arterial sheath. The papa catheter was also used to perform left heart catheterization, left ventriculogram and selective coronary angiogram. At the end of the procedure the sheath was removed good hemostasis was achieved using Traclet band, patient was transferred to the postop holding area in stable condition. ANGIOGRAPHIC RESULTS The left main artery Normal The left anterior descending artery Has stents in the proximal and mid which are widely patent with minimal's in-stent restenosis in the proximal segment and a focal 70 to 80% mid vessel stenosis. Which appears to represent in-stent restenosis The circumflex artery Nondominant and has proximal 30% stenosis with additional mid vessel 30 to 40% stenosis The right coronary artery Is dominant has proximal 20% stenosis with stents in the proximal to mid segment which are widely patent with mild to moderate 30 to 40% concentriic in-stent restenosis in the distal aspect of the stent The MORA ventriculogram reveals Not performed The left ventricular end-diastolic pressure Not measured IMPRESSION Coronary disease as described above Ejection fraction 33% PLAN 1. Schedule patient for AICD next week 2. Continue medical management for coronary artery disease 3. Maximize antianginal medications 4. If chest pain is recalcitrant after AICD and medication adjustments I would consider a stent in the mid LAD vessel Electronically signed by : Sharif Gómez MD 08/02/2022 14:07:31
[2022-08-02 09:45] LABS: Anion Gap 20.1 mEq/L (5-15); Blood Urea Nitrogen 21 mg/dl (9-20); Carbon Dioxide 23 mmol/L (22.0-30.0); Chloride 103 mmol/L (98-107); Creatinine Clearance Estimated 91 mL/min (50-200); Estimated Glomerular Filt Rate 61 ml/min (>60); GFR (African American) 74 ML/MIN (>60); Glucose 94 mg/dl (74-100); Potassium 4.1 mmoL/L (3.5-5.1); Sodium 142 mmol/L (136-145)
[2022-08-02 10:09] LABS: Basophils % 0.5 % (0.1-2.0); Eosinophils # 0.2 K/mm3 (0.0-0.4); Eosinophils % 2.4 % (0.1-12.0); Hematocrit 50.7 % (42.0-52.0); Hemoglobin 16.3 g/dL (14.1-18.0); Lymphocytes # 2.4 K/mm3 (0.7-4.5); Lymphocytes % 27.7 % (10-50); Mean Corpuscular HGB Conc 32.2 g/dL (31.8-35.4); Mean Corpuscular Hemoglobin 30.4 pg (27.0-31.2); Mean Corpuscular Volume 94.2 fl (80-94); Mean Platelet Volume 7.8 fl (7.4-10.4); Monocytes # 0.5 K/mm3 (0.1-1.0); Neutrophils # 5.5 K/mm3 (1.8-7.8); Neutrophils % 63.4 % (37.0-80.0); Platelet Count 259 K/mm3 (142-424); Red Blood Count 5.38 M/mm3 (4.60-6.20); Red Cell Distribution Width 14.5 % (11.5-17.5); White Blood Count 8.7 K/mm3 (4.8-10.8)
--- NOTE | 2022-10-05 07:17 | IR_ITS ---
APPROVED REPORT Patient Location: Outpatient Oil Rig Roughneck: LYRIC Pedraza RT (R) PROCEDURES 1. Pocket formation for AICD. 2. Placement of atrial sensing and pacing coil into the right atrial appendage. 3. Placement of a ventricular sensing, pacing and shocking coil in the right ventricular apex. 4. Permanent AICD placement. INDICATION Systolic Congestive Heart Failure, ejection < 35%, [place] Heart Assoication Class 3 Congestive Heart Failure Informed consent was obtained prior to the procedure. COMPLICATIONS None Estimated Blood Loss: Less than 10 ML TECHNIQUE 1% Lidocaine with epinephrine used to anesthetized the left anterior aspect of the chest. Scalpel was used to make the initial cutaneous incision while electrocautery was used to dissect down tinto the fascia. The fascia was lifted off the pectoralis muscle and digitally manipulated creating a pocket for the defibrillator. The patient was then placed in Trendelenburg position and the subclavian vein was accessed 2 times via the Selinger technique. A 8 Cymraes sheath was placed under fluoroscopic guidance into the subclavian vein. The dilator was removed from the sheath. Using fluoroscopic guidance, the ventricular lead was placed into the right ventricular apex, screwed and secured into place. Electronic interrogation proved acceptable thresholds and voltage within the lead. Using 3-0 silk, the ventricular lead was then secured into place and sheath peeled away. A 6 Cymraes fresh sheath and dilator was placed over the existing wire. Using fluoroscopic guidance, the atrial lead was then placed into the right atrial appendage and screwed and secured in place. Electrical interrogation demonstrated acceptable thresholds and voltage number. The atrial lead was then secured into place using 3-0 silk and sheath peeled away. 1 gram of Ancef was used to flush the pocket. All 3 leads were connected to generator and tested via computer. The defibrillator then secured to the fascia. Monocryl was used to close the subcutaneous layers while natalio were used to close the cutaneous layer. A pressure dressing was placed and the patient was transferred to the postop holding area in stable condition for postoperative care. INTERROGATION Generator Model number: Júnior KUHN [id number] Generator Serial number: [id number] Atrial lead model number: Optisure 2088TC/52 Atrial lead serial number: [id number] P-wave: >5.0 mV Impedence: 830 Ohms Threshold: 1.0V@0.5ms Right Ventricular lead model number: Cornel [id number] Right Ventricular lead serial number: [id number] R-wave: 6.6mV Impedence: 560 Ohms Threshold: 0.75V@0.5ms Pacing Parameters: Mode: DDD Base/Max Track:60 ppm / 130 ppm VT: 181 bpm; ATPx3; 36J; 40J; 40Jx2 VF: 214 bpm; ATPx1; 36J; 40J; 40Jx4 No diaphragmatic stimulation at 10 volts. IMPRESSION 1. Successful pocket formation for AICD. 2. Successful placement of atrial sensing and pacing coil into the right atrial appendage. 3. Successful placement of a ventricular sensing, pacing and shocking coil in the right ventricular apex. 4. Successful permanent AICD placement. PLAN 1. Post Op Wound Care Electronically signed by : Sharif Gómez MD 10/09/2022 07:46:07
== END 2022-08-02 14:55 | disposition home or self-care (01) ==
PROVIDERS: PCP Family Medicine; Visit Provider Internal Medicine
DX: R07.9 Chest pain, unspecified (principal); I50.20 Unspecified systolic (congestive) heart failure; F17.210 Nicotine dependence, cigarettes, uncomplicated; T82.855A Stenosis of coronary artery stent, initial encounter; I25.118 Atherosclerotic heart disease of native coronary artery with other forms of angina pectoris; I11.0 Hypertensive heart disease with heart failure; I70.213 Atherosclerosis of native arteries of extremities with intermittent claudication, bilateral legs; E78.5 Hyperlipidemia, unspecified; Z79.899 Other long term (current) drug therapy; Y83.1 Surgical operation with implant of artificial internal device as the cause of abnormal reaction of the patient, or of later complication, without mention of misadventure at the time of the procedure
CPT/HCPCS: 80048; 85025; 93454; 99152; C1725; C1760; C1769; J1644; Q9967

== ENCOUNTER → 2022-08-08 14:30 | Outpatient (CLI) | payer MEDICARE, OTHER, SELFPAY | PROVIDERS: Visit Provider Nurse Practitioner | DX: R06.09 Other forms of dyspnea (principal); I20.8 Other forms of angina pectoris; I50.20 Unspecified systolic (congestive) heart failure; I73.9 Peripheral vascular disease, unspecified; I10 Essential (primary) hypertension; E78.2 Mixed hyperlipidemia; N52.9 Male erectile dysfunction, unspecified | CPT/HCPCS: 93308 ==

== ENCOUNTER 2022-10-05 08:45 | Day surgery (SDC) | payer MEDICARE, OTHER, SELFPAY ==
[2022-10-05 08:51] VITALS: BMI 34.3
[2022-10-05 10:09] VITALS: BP 136/61; PULSE 69; PULSE 79; RESP 20; O2SAT 96
[2022-10-05 10:16] LABS: Basophils % 0.3 % (0.1-2.0); Eosinophils # 0.2 K/mm3 (0.0-0.4); Eosinophils % 3.3 % (0.1-12.0); Hematocrit 45.4 % (42.0-52.0); Hemoglobin 14.7 g/dL (14.1-18.0); Lymphocytes # 1.9 K/mm3 (0.7-4.5); Lymphocytes % 27.6 % (10-50); Mean Corpuscular HGB Conc 32.3 g/dL (31.8-35.4); Mean Corpuscular Hemoglobin 29.8 pg (27.0-31.2); Mean Corpuscular Volume 92.3 fl (80-94); Monocytes # 0.4 K/mm3 (0.1-1.0); Monocytes % 6.3 % (1.7-9.3); Neutrophils # 4.3 K/mm3 (1.8-7.8); Neutrophils % 62.4 % (37.0-80.0); Platelet Count 223 K/mm3 (142-424); Red Blood Count 4.92 M/mm3 (4.60-6.20); Red Cell Distribution Width 13.9 % (11.5-17.5); White Blood Count 6.8 K/mm3 (4.8-10.8)
[2022-10-05 10:21] LABS: Chloride 107 mmol/L (98-107); Potassium 3.9 mmoL/L (3.5-5.1); Sodium 142 mmol/L (136-145)
[2022-10-05 10:24] LABS: Blood Urea Nitrogen 14 mg/dl (9-20); Creatinine Clearance Estimated 97 mL/min (50-200); Estimated Glomerular Filt Rate 67 ml/min (>60); GFR (African American) 81 ML/MIN (>60)
[2022-10-05 10:25] LABS: Anion Gap 12.9 mEq/L (5-15); Calcium 9.2 mg/dl (8.4-10.2); Carbon Dioxide 26 mmol/L (22.0-30.0); Glucose 102 mg/dl (74-100)
--- NOTE | 2022-10-05 11:02 | P.PN_ITS ---
[facility] Disclaimer: The information contained in this section may have been updated after the patient was seen, as this information can be updated by other users. Medical History CAD (coronary artery disease) COPD (chronic obstructive pulmonary disease) Diastolic heart failure Essential hypertension GERD (gastroesophageal reflux disease) Gynecomastia HHD (hypertensive heart disease) HLD (hyperlipidemia) Impotence Multiple nodules of lung NYHA Class III cardiovascular function Obesity PAD (peripheral artery disease) Post-operative complication PVC (premature ventricular contraction) Systolic heart failure Tobacco dependence syndrome Typical angina Surgical History History of endarterectomy Family History Other No significant family history Social History Smoking Status: Current every day smoker tobacco type: cigarettes packs per day: 1 alcohol intake: never substance use type: denies use current occupational status: unemployed Travel in the last 8 weeks: Inside the [employer] household members: significant other housing: house current occupational exposures/hazards: No caffeine: Yes [facility] Anesthesia Checklist Patient Identification Patient Identification: Arm Band and Verbal (Name & ) Structural Data Admitted From: Home Planned Operative Procedure/s: Pacemaker placement Consent for Planned Operative Procedure(s) Verified: Yes NPO Status Verified Time NPO: 00:00 Airway Assessment C-Spine Mobility Assessed: Yes TMJ Mobility Assessed: Yes Dentition: Edentulous Neurological Assessment Level of Consciousness: Awake Hx Seizures: No Numbness or tingling in extremities: No Anesthesia Plan Anesthesia Risk discussed: Yes Anesthesia Plan: Verified ASA Class: IV Anesthesia Type: MAC
--- NOTE | 2022-10-05 12:31 | XR_ITS ---
FINAL REPORT CLINICAL HISTORY: Confirm pacemaker/AID placement FINDINGS: SINGLE-VIEW CHEST There is cardiomegaly. Left subclavian ICD is present. The mediastinum is normal. There is mild bibasilar atelectasis. There is no pneumothorax. IMPRESSION: Left subclavian ICD. Mild bibasilar atelectasis. Reviewed, Interpreted and Dictated by Jovan Topete III, MD Transcribed by Glenny Beaver Authenticated and [facility]
[2022-10-05 12:41] VITALS: BP 104/84; PULSE 103; PULSE 87; RESP 16; O2SAT 92
[2022-10-05 13:00] VITALS: BP 140/69; PULSE 74; RESP 18; O2SAT 99
[2022-10-05 13:15] VITALS: BP 134/66; PULSE 77; RESP 18; O2SAT 97
[2022-10-05 13:30] VITALS: BP 146/95; PULSE 84; RESP 18; O2SAT 98
--- NOTE | 2022-10-05 15:03 | SUR.PHASEII ---
POST VITALS 1400-161/79, 80, 96% RA 1415- 138/84, 78, 96% RA 1445-145/90, 78, 98% RA
== END 2022-10-05 15:27 | disposition home or self-care (01) ==
PROVIDERS: PCP Family Medicine; Visit Provider Internal Medicine
PROC: 0JH608Z Insertion of Defibrillator Generator into Chest Subcutaneous Tissue and Fascia, Open Approach (ICD-10-PCS; CPT 33249; principal; 2022-10-05 08:00)
DX: I11.0 Hypertensive heart disease with heart failure (principal); Z45.02 Encounter for adjustment and management of automatic implantable cardiac defibrillator; I50.21 Acute systolic (congestive) heart failure; F17.210 Nicotine dependence, cigarettes, uncomplicated; Z79.899 Other long term (current) drug therapy; I25.118 Atherosclerotic heart disease of native coronary artery with other forms of angina pectoris; J44.9 Chronic obstructive pulmonary disease, unspecified; E78.5 Hyperlipidemia, unspecified; I70.213 Atherosclerosis of native arteries of extremities with intermittent claudication, bilateral legs
CPT/HCPCS: 33249; 71045; 80048; 85025; C1721; C1895; C1898

== ENCOUNTER 2023-07-11 07:33 | Day surgery (SDC) | payer MEDICARE, OTHER, SELFPAY ==
[2023-07-11] VITALS (13 sets, daily range): BP systolic 129–214; BP diastolic 75–132; PULSE 59–84; RESP 15–20; TEMP 36.4; O2SAT 93–99; BMI 36.0
--- NOTE | 2023-07-11 07:11 | IR_ITS ---
APPROVED REPORT Patient Location: Outpatient Lay Out Worker: LYRIC Hamilton RT (R) PROCEDURES Selective coronary angiogram Drug-eluting stent deployment to the proximal dominant right coronary Drug-eluting stent deployment to the ostial proximal and mid left anterior descending artery in a contiguous manner INDICATION Coronary artery disease, Accelerated angina pectoris Informed consent was obtained prior to the procedure. COMPLICATIONS NONE Estimated Blood Loss: LESS THAN 10 ML TECHNIQUE One percent lidocaine used to anesthetize the right anterior aspect of the wrist. The right radial artery was accessed via the Seldinger technique. A 6 Ukrainian sheath was placed in the right radial artery. 2.5 mg of Verapamil, 800 mcg of nitroglycerin, 1mg Lidocaine and 5000 U Heparin were given through the arterial sheath. The papa catheter was also used to perform selective coronary angiogram. At the end of the diagnostic angiogram therapeutic heparin was administered giving a therapeutic ACT and the Poppa catheter was used to intubate the right coronary artery followed by Choice PT extra-support wire. A 3.5 x 22 mm [place] frontier stent was deployed at 24 andreas reducing the severe stenosis to less than 10%. ANTOINE-3 flow was present before and after the procedure. Following this the guide catheters were exchanged and a 6 Ukrainian JL 3 guide catheter was placed in the left main artery followed by Choice PT extra-support wire placed on the LAD. A 3.5 x 38 mm [place] frontier stent was deployed at 22 andreas reducing the stenosis. A 3.75 x 12 mm noncompliant balloon was deployed at 26 andreas in the midportion trying to post dilate as well as bring it back proximally deploying it at 22 andreas. An additional 4 mm x 8 mm noncompliant balloon was deployed at 26 andreas in the midportion of further reduce the in-stent restenotic lesion. An ostial lesion was identified therefore 3.5 x 12 mm [place] frontier stent was placed in the ostial proximal LAD overlapping the first 38 mm stent and deployed at 20 andreas reducing the stenosis to 0%. Excellent angiograph results were obtained with ANTOINE-3 flow being present before and after the procedure. At the end the procedure the apparatus was removed the sheath was removed and hemostasis was achieved using TR banding patient was transferred to the postop putting in stable condition ANGIOGRAPHIC RESULTS The left main artery Has ostial proximal 30% stenosis The left anterior descending artery Has ostial proximal 40 to 50% stenosis with a stent in the proximal portion which has hazy 70 to 80% stenosis which originates proximal to the first septal baggage smasher and extends distal to the second septal baggage smasher. There is additional 30 to 40% concentric in-stent restenosis. The mid LAD has a focal concentric 90% in-stent restenotic lesion immediately distal to the large second diagonal artery. The remaining LAD is patent The circumflex artery Is nondominant and has 20 to 30% stenosis in a large first obtuse marginal artery with additional 10 to 20% stenosis in the mid circumflex artery The right coronary artery Is a dominant vessel is proximally patent and has a stent in the proximal and mid segment which has a focal concentric 80% in-stent restenotic lesion. Distally there are 30 and 40% stenoses. The posterior descending artery is proximally occluded and fills via left to right collaterals. A large posterior lateral ventricular branch has mid vessel 30 and 40% stenoses The MORA ventriculogram reveals Was not performed The left ventricular end-diastolic pressure Was not measured IMPRESSION Coronary artery disease as described above Successful stenting of the proximal dominant right coronary severe disease reduced to less than 10% with 1 drug-eluting stent Successful stenting of the proximal to mid LAD severe disease reduced to less than 10% with 2 contiguous drug-eluting stents as described above Persistent severe stenosis in the mid LAD distal to a large diagonal artery which will be managed medically at this time given the large diagonal artery bifurcation and the relatively small caliber of the mid to distal LAD PLAN 1. Dual antiplatelet therapy 2. Better blood pressure control 3. LDL less than 55 to be achieved with high intensity statin 4. Maximize antianginal medications 5. If patient continues to experience recalcitrant angina pectoris refractory to antianginal medications I can bring him back and perform revascularization of the mid LAD. By increasing inflow through the proximal to midportion I am hopeful this will alleviate the angina. I do believe some of the angina is exacerbated by hypertension 6. Cardiac rehabilitation Electronically signed by : Sharif Gómez MD 07/11/2023 10:21:20
[2023-07-11 08:06] LABS: Basophils # 0.1 K/mm3 (0-0.2); Basophils % 1.1 % (0.1-2.0); Eosinophils # 0.2 K/mm3 (0.0-0.4); Hematocrit 50.1 % (42.0-52.0); Hemoglobin 16.5 g/dL (14.1-18.0); Lymphocytes % 32.8 % (10-50); Mean Corpuscular HGB Conc 32.9 g/dL (31.8-35.4); Mean Corpuscular Hemoglobin 31.9 pg (27.0-31.2); Mean Platelet Volume 7.7 fl (7.4-10.4); Monocytes # 0.6 K/mm3 (0.1-1.0); Neutrophils # 5.4 K/mm3 (1.8-7.8); Platelet Count 229 K/mm3 (142-424); Red Blood Count 5.16 M/mm3 (4.60-6.20); Red Cell Distribution Width 14.8 % (11.5-17.5); White Blood Count 9.3 K/mm3 (4.8-10.8)
[2023-07-11 08:11] LABS: Chloride 111 mmol/L (98-107); Potassium 4.3 mmoL/L (3.5-5.1); Sodium 140 mmol/L (136-145)
[2023-07-11 08:14] LABS: Anion Gap 10.3 mEq/L (5-15); Blood Urea Nitrogen 18 mg/dl (9-20); Calcium 9.2 mg/dl (8.4-10.2); Carbon Dioxide 23 mmol/L (22.0-30.0); Creatinine Clearance Estimated 92 mL/min (50-200); Estimated Glomerular Filt Rate 61 ml/min (>60); GFR (African American) 73 ML/MIN (>60); Glucose 107 mg/dl (74-100)
[2023-07-11] MEDS: LIDOCAINE 1% 10ML MDV 20 ML IJ (09:32)
[2023-07-11] MEDS: HEPARIN 1,000 UNITS/500ML NS (CATH LAB) 3000 UNIT IV (09:32)
[2023-07-11] MEDS: NITROGLYCERIN 800MCG/8ML SYR (CATH LAB) 800 MCG IA (09:32)
[2023-07-11] MEDS: HEPARIN 1,000 UNITS/ML 10ML VIAL (CATH LAB) 10000 UNIT IV (09:32)
[2023-07-11] MEDS: 0.9 % SODIUM CHLORIDE 500 ML 25 ML IV (09:32)
[2023-07-11] MEDS: diphenhydrAMINE 50MG/ML VIAL 50 MG IV (09:33)
[2023-07-11] MEDS: VERAPAMIL 2.5MG/ML 2ML VIAL 2.5 MG IV (09:33)
[2023-07-11] MEDS: FENTANYL 100MCG/2ML VIAL 50 MCG IV (10:07)
[2023-07-11] MEDS: LABETALOL 20MG/4ML SYRINGE 20 MG IV (10:07)
[2023-07-11] MEDS: MIDAZOLAM HCL 1MG/1ML 5ML VIAL 1 MG IV (10:07)
--- NOTE | 2023-07-11 11:15 | ECG_ITS ---
APPROVED REPORT Exam: Resting ECG HR:72 bpm ECG Measurements Heart Rate 72 AXES CO 176 P 74 QRSd 122 QRS -19 QT 393 T 19 QTc 417 Conclusion SINUS RHYTHM WITH OCCASIONAL VENTRICULAR PREMATURE COMPLEXES MODERATE INTRAVENTRICULAR CONDUCTION DELAY [110+ ms QRS DURATION] LAD Biatrial abnormality BORDERLINE ECG UNCONFIRMED REPORT Electronically signed by : Rick Vernon MD 07/14/2023 07:39:22
[2023-07-11] MEDS: NITROGLYCERIN SPRAY 0.4MG/SPRAY 4.9GM 0.400000000000000022 MG TL (11:18)
[2023-07-11] MEDS: IOPAMIDOL-370 (76%);100ML BOTTLE 200 ML IV (14:18)
[2023-07-11 14:21] LABS: CATHL Activated Clotting Time 390 SEC (74-125)
== END 2023-07-11 13:20 | disposition home or self-care (01) ==
PROVIDERS: Visit Provider Internal Medicine
DX: I25.118 Atherosclerotic heart disease of native coronary artery with other forms of angina pectoris (principal); I11.0 Hypertensive heart disease with heart failure; I50.20 Unspecified systolic (congestive) heart failure; F17.210 Nicotine dependence, cigarettes, uncomplicated; Z79.899 Other long term (current) drug therapy; J44.9 Chronic obstructive pulmonary disease, unspecified; Z95.810 Presence of automatic (implantable) cardiac defibrillator
CPT/HCPCS: 80048; 85025; 85347; 92928; 93005; 93454; 99152; 99153; C1725; C1760; C1769; C1876; C9600; J1644; Q9967

== ENCOUNTER 2023-09-16 14:56 | Observation (INO) | payer MEDICARE, OTHER, SELFPAY ==
[2023-09-16] VITALS (18 sets, daily range): BP systolic 116–163; BP diastolic 60–85; PULSE 58–77; RESP 14–20; TEMP 36.4–36.8; O2SAT 90–98; BMI 35.4; BMI 32.3
--- NOTE | 2023-09-16 07:11 | IR_ITS ---
APPROVED REPORT Patient Location: Outpatient PROCEDURES Left heart catheterization Left ventriculogram Selective coronary angiogram Intravascular ultrasound to the mid LAD Drug-eluting stent deployment to the mid LAD INDICATION Recalcitrant angina pectoris, Coronary artery disease, Extensive coronary artery calcification, Informed consent was obtained prior to the procedure. COMPLICATIONS NONE Estimated Blood Loss: LESS THAN 10 ML TECHNIQUE One percent lidocaine used to anesthetize the right anterior aspect of the wrist. The right radial artery was accessed via the Seldinger technique. A 6 Indonesian sheath was placed in the right radial artery. 2.5 mg of Verapamil, 800 mcg of nitroglycerin, 1mg Lidocaine and 5000 U Heparin were given through the arterial sheath. The papa catheter was also used to perform left heart catheterization, left ventriculogram and selective coronary angiogram. At the end the diagnostic angiogram therapeutic heparin was administered giving a therapeutic ACT and the guide catheter was placed in the left main artery followed by Choice PT extra-support wire placed distally. A guide liner was used for additional support and multiple balloons were used. A total of 16 different balloons were used along with 2 different intravascular lithotripsy balloon 1 being a 3 mm x 12 mm and the other being a 3.5 x 12 mm balloon. Ultimately a 4.5 mm x 12 mm noncompliant balloon was taken to 30 andreas and this eventually reduce the stenosis which allowed for adequate stent expansion. A 3 mm x 18 mm [place] frontier stent was deployed at 24 andreas followed by an additional 3 mm x 12 mm [place] frontier stent placed distal to this yet still overlapping it and deployed at 20 andreas. Excellent angiographic results were obtained with ANTOINE-3 flow being present before and after the procedure. In the procedure the apparatus was removed the sheath was removed hemostasis was achieved using TR banding patient was transferred to the postop putting in stable condition ANGIOGRAPHIC RESULTS The left main artery Normal The left anterior descending artery Has stents through the proximal to mid segment. The proximal stents have 30% concentric in-stent restenosis while the mid vessel has a 40% stenosis followed by a focal concentric 80 to 90% stenosis. The LAD is large and wraps the apex. The circumflex artery Nondominant with proximal to mid vessel 40% stenoses. Large first obtuse marginal artery is a proximal 40% stenosis The right coronary artery Is dominant with stents in the proximal to mid segment which are widely patent with mild in-stent restenosis. There are additional 30% mid vessel stenoses. The posterior descending artery is proximally occluded and fills via left to right collaterals The MORA ventriculogram reveals Dilated ventricle ejection fraction 30% The left ventricular end-diastolic pressure 30 mmHg IMPRESSION Severe disease in the mid LAD as described above Successful intravascular lithotripsy to the mid LAD severe to critical disease reduced to 10 to 20% with a total of 16 conventional balloons and 2 intravascular lithotripsy balloons followed by drug-eluting stent deployment with 2 contiguous drug-eluting stents Left ventricular dysfunction Severely elevated LVEDP PLAN 1. Patient should be admitted overnight due to the complexity of the procedure the copious contrast LV dysfunction and the renal dysfunction. 2. Chemistry panel and CBC in the morning 3. Increased diuretics to decrease LVEDP 4. Aggressive risk factor modification 5. Avoidance of tobacco products 6. LDL less than 55 to achieve that high intensity statin Electronically signed by : Sharif Gómez MD 09/16/2023 14:09:24
[2023-09-16 08:41] LABS: Basophils # 0.1 K/mm3 (0-0.2); Basophils % 0.7 % (0.1-2.0); Eosinophils # 0.2 K/mm3 (0.0-0.4); Eosinophils % 2.2 % (0.1-12.0); Hematocrit 43.8 % (42.0-52.0); Hemoglobin 14.4 g/dL (14.1-18.0); Lymphocytes # 1.9 K/mm3 (0.7-4.5); Lymphocytes % 24.7 % (10-50); Mean Corpuscular HGB Conc 32.8 g/dL (31.8-35.4); Mean Corpuscular Volume 97.6 fl (80-94); Mean Platelet Volume 7.8 fl (7.4-10.4); Monocytes # 0.4 K/mm3 (0.1-1.0); Monocytes % 5.5 % (1.7-9.3); Neutrophils # 5.2 K/mm3 (1.8-7.8); Neutrophils % 66.9 % (37.0-80.0); Platelet Count 275 K/mm3 (142-424); Red Blood Count 4.49 M/mm3 (4.60-6.20); White Blood Count 7.7 K/mm3 (4.8-10.8)
[2023-09-16 08:52] LABS: Anion Gap 16.3 mEq/L (5-15); Blood Urea Nitrogen 28 mg/dl (9-20); Calcium 9.5 mg/dl (8.4-10.2); Carbon Dioxide 19 mmol/L (22.0-30.0); Chloride 108 mmol/L (98-107); Creatinine Clearance Estimated 84 mL/min (50-200); Estimated Glomerular Filt Rate 55 ml/min (>60); GFR (African American) 67 ML/MIN (>60); Glucose 98 mg/dl (74-100); Potassium 4.3 mmoL/L (3.5-5.1); Sodium 139 mmol/L (136-145)
[2023-09-16] MEDS: diphenhydrAMINE 50MG/ML VIAL 50 MG IV (11:26)
[2023-09-16] MEDS: HEPARIN 1,000 UNITS/ML 10ML VIAL (CATH LAB) 10000 UNIT IV (11:26)
[2023-09-16] MEDS: NITROGLYCERIN 800MCG/8ML SYR (CATH LAB) 800 MCG IA (11:26)
[2023-09-16] MEDS: VERAPAMIL 2.5MG/ML 2ML VIAL 2.5 MG IV (11:26)
[2023-09-16] MEDS: LIDOCAINE 1% 10ML MDV 20 ML IJ (11:26)
[2023-09-16] MEDS: 0.9 % SODIUM CHLORIDE 500 ML 25 ML IV (11:27)
[2023-09-16] MEDS: MIDAZOLAM HCL 1MG/1ML 5ML VIAL 1 MG IV (11:27)
[2023-09-16] MEDS: HEPARIN 1,000 UNITS/500ML NS (CATH LAB) 3000 UNIT IV (11:27)
[2023-09-16] MEDS: FENTANYL 100MCG/2ML VIAL 50 MCG IV (11:27)
--- NOTE | 2023-09-16 15:16 | PC.NURSE ---
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
[2023-09-16] MEDS: IOPAMIDOL-370 (76%);100ML BOTTLE 175 ML IV (15:18)
[2023-09-16 15:22] LABS: CATHL Activated Clotting Time 269 SEC (74-125)
[2023-09-16 15:24] LABS: CATHL Activated Clotting Time 356 SEC (74-125)
--- NOTE | 2023-09-16 18:20 | P.HP_ITS ---
History of Present Illness *Admission Date: 09/16/23 *Reason for visit:: LAD lesion, cad, post cath *History of present illness: Mr. Thurman is a 68-year-old male with extensive history of coronary artery disease, atypical angina, COPD, GERD, obesity. Continues to smoke. Has been cared for by cardiology for over 20 years. They have been treating recalcitrant angina with no improvement with medical optimization. Brought in for elective left heart cath today due to known mid LAD lesion that failed conservative management. Procedure was difficult due to significant calcification. Ultimately received 2 stents. Tolerated procedure well however given extensive nature of procedure, location of lesion, patient's comorbidities, cardiology requested admission for observation overnight, gentle hydration, monitoring of kidney function. On arrival to the floor, patient is chest pain-free. On room air. Fatigued from the procedure and sedation. Denies any nausea, vomiting, confusion, headache. No significant pain at right wrist from radial approach. [facility] Disclaimer: The information contained in this section may have been updated after the patient was seen, as this information can be updated by other users. Medical History Impotence Typical angina NYHA Class III cardiovascular function Post-operative complication Gynecomastia HHD (hypertensive heart disease) HLD (hyperlipidemia) CAD (coronary artery disease) Multiple nodules of lung Diastolic heart failure Obesity PAD (peripheral artery disease) Essential hypertension COPD (chronic obstructive pulmonary disease) GERD (gastroesophageal reflux disease) PVC (premature ventricular contraction) Systolic heart failure Tobacco dependence syndrome Surgical History History of endarterectomy Family History No significant family history Social History Smoking Status: Current every day smoker tobacco type: cigarettes packs per day: 1 alcohol intake: never substance use type: denies use current occupational status: unemployed Travel in the last 8 weeks: Inside the [place] household members: significant other housing: house current occupational exposures/hazards: No caffeine: Yes Review of Systems Review of Systems Review of systems (narrative): 14 point review of systems performed, pertinent positives and negatives as per [facility] Meds Home Medications and Allergies Home Medications Medication Instructions Recorded Confirmed Type ascorbic acid (vitamin C) 1,000 mg 1 g PO QDAY Supplement 04/10/17 09/09/23 His tory tablet aspirin 81 mg tablet,delayed 81 mg PO QDAY CAD 04/10/17 09/09/23 History release (Adult Low Dose Aspirin) bupropion HCl 150 mg tablet,12 hr 150 mg PO QDAY Anxiety 04/10/17 09/09/23 History sustained-release fluticasone propionate 50 50 mcg intranasal QDAY PRN 04/10/17 09/09/23 History mcg/actuation nasal Allergic Reaction spray,suspension (Flonase Allergy Relief) albuterol sulfate 90 mcg/actuation 2 puff inhalation Q6H PRN Dyspnea 05/17/17 09/09/23 History aerosol inhaler (Ventolin HFA) furosemide 20 mg tablet (Lasix) 40 mg (2 x 20 mg) PO QDAY PRN 04/21/21 09/09/23 Rx edema #90 tabs prasugrel 10 mg tablet 10 mg PO QDAY heart disease #90 06/01/21 09/09/23 Rx tabs fluticasone fur. 100 mcg-umeclid 1 inh inhalation DAILY Allergy 10/19/21 09/09/23 History 62.5 mcg-vilant 25 mcg symptoms inhalat.powder (Trelegy Ellipta) dapagliflozin propanediol 10 mg 10 mg PO DAILY #90 tabs 10/26/22 09/09/23 Rx tablet (Farxiga) metoprolol succinate 50 mg 50 mg PO DAILY #30 tabs 10/26/22 09/09/23 Rx tablet,extended release 24 hr (Toprol XL) ranolazine 1,000 mg 1,000 mg PO BID #60 tabs 07/16/23 09/09/23 Rx tablet,extended release,12 hr evolocumab 140 mg/mL subcutaneous 140 mg SQ Q2W #2 mL 07/22/23 09/09/23 Rx pen injector (Repatha SureClick) nitroglycerin 0.4 mg sublingual 0.4 mg sublingual Q5M PRN chest 07/22/23 09/09/23 Rx tablet (Nitrostat) pain #20 tabs amlodipine 10 mg tablet 10 mg PO DAILY #90 tabs 08/06/23 09/09/23 Rx isosorbide mononitrate 120 mg 120 mg PO DAILY #90 tabs 08/06/23 09/09/23 Rx tablet,extended release 24 hr olmesartan 40 mg tablet 40 mg PO DAILY High blood pressure 08/07/23 09/09/23 Rx #90 tabs New Prescriptions to Start Prescriptions: Allergies Allergy/AdvReac Type Severity Reaction Status Date / Time rosuvastatin [From Crestor] Allergy Unknown Unknown Verified 09/16/23 08:16 allergy reaction Exam Data for Last 24 hours Vital signs and Labs for Last 24 Hours: Temp Pulse Resp BP Pulse Ox O2 Del Method 97.5 F L 58 L 20 116/60 92 L Room Air 09/16/23 15:17 09/16/23 16:45 09/16/23 16:45 09/16/23 16:45 09/16/23 16:45 09/16/23 16:48 Laboratory Results - last 24 hr 09/16/23 08:32: WBC 7.7, RBC 4.49 L, Hgb 14.4, Hct 43.8, MCV 97.6 H, MCH 32.0 H, MCHC 32.8, RDW 15.0, Plt Count 275, MPV 7.8, Neut % (Auto) 66.9, Lymph % (Auto) 24.7, [place] % (Auto) 5.5, Eos % (Auto) 2.2, Baso % (Auto) 0.7, Neut # (Auto) 5.2, Lymph # (Auto) 1.9, [place] # (Auto) 0.4, Eos # (Auto) 0.2, Baso # (Auto) 0.1, Sodium 139, Potassium 4.3, Chloride 108 H, Carbon Dioxide 19 L, Anion Gap 16.3 H , BUN 28 H, Creatinine 1.30 H, Estimated Creat Clear 84, Estimated GFR 55 L, Est GFR ( Amer) 67, Glucose 98, Calcium 9.5 09/16/23 12:30: Activated Clotting Time 356 H* 09/16/23 13:08: Activated Clotting Time 269 H* D I & O for Last 24 hours: Intake & Output 09/13/23 09/14/23 09/15/23 09/16/23 23:59 23:59 23:59 23:59 Weight 96.332 kg Constitutional Constitutional: no acute distress, obese and chronically ill appearing *Routine HEENT Exam Head: Present normocephalic Eye: Present EOMI and PERRL ENT: Present mucous membranes moist *Routine Neck Exam Neck: Present supple; Absent lymphadenopathy *Routine Respiratory Exam Respiratory: Present CTA bilaterally; Absent rhonchi, wheezes or crackles *Routine Cardiovascular Exam Cardiovascular: Present RRR *Routine Abdominal Exam Abdominal: Present soft and normoactive bowel sounds; Absent tenderness *Routine Rectal Exam Rectal:: deferred *Routine Genitalia Exam Genitalia:: deferred *Routine Extremities Exam Extremities: Absent cyanosis, clubbing or edema Comments: Right wrist and compression brace *Routine Skin Exam Skin: Present warm; Absent rash *Routine Neurological Exam Neurological: Present alert, oriented X3 and moving all extremities; Absent altered mental status Assessment and Plan *Assessment and plan (1) Atypical angina: Status: Acute Category: Medical Code(s): I20.8 - Other forms of angina pectoris (2) CAD (coronary artery disease): Status: Chronic Qualifiers: Coronary Disease-Associated Artery/Lesion type: [place] artery [place] vs. transplanted heart: [place] heart Associated angina: with other forms of angina Qualified Code(s): I25.118 - Atherosclerotic heart disease of [place] coronary artery with other forms of angina pectoris Category: Medical Code(s): I25.10 - Atherosclerotic heart disease of [place] coronary artery without angina pectoris (3) GERD (gastroesophageal reflux disease): Status: Chronic Qualifiers: Esophagitis presence: without esophagitis Qualified Code(s): K21.9 - Gastro-esophageal reflux disease without esophagitis Category: Medical Code(s): K21.9 - Gastro-esophageal reflux disease without esophagitis (4) COPD (chronic obstructive pulmonary disease): Status: Chronic Qualifiers: COPD type: emphysema Emphysema type: other Qualified Code(s): J43.8 - Other emphysema Category: Medical Code(s): J44.9 - Chronic obstructive pulmonary disease, unspecified (5) Obesity: Status: Chronic Qualifiers: Obesity type: due to excess calories Obesity classification: adult class 1 (BMI 30 - 34.9) Serious obesity comorbidity presence: without serious comorbidity Body mass index: BMI 34.0-34.9 Qualified Code(s): E66.09 - Other obesity due to excess calories; Z68.34 - Body mass index (BMI) 34.0-34.9, adult Category: Medical Code(s): E66.9 - Obesity, unspecified (6) Tobacco dependence syndrome: Status: Chronic Category: Medical Code(s): F17.200 - Nicotine dependence, unspecified, uncomplicated (7) PAD (peripheral artery disease): Status: Chronic Category: Medical Code(s): I73.9 - Peripheral vascular disease, unspecified (8) HLD (hyperlipidemia): Status: Chronic Qualifiers: Hyperlipidemia type: mixed hyperlipidemia Qualified Code(s): E78.2 - Mixed hyperlipidemia Category: Medical Code(s): E78.5 - Hyperlipidemia, unspecified (9) Essential hypertension: Status: Chronic Category: Medical Code(s): I10 - Essential (primary) hypertension (10) NYHA Class III cardiovascular function: Status: Chronic Category: Medical Plan 68-year-old male with recalcitrant angina brought in electively for left heart cath. Found to have complex mid LAD lesion. Took significant effort to reduce lesion. Ultimately required 18 balloons and 2 stents. Achieved good results wi th improved flow. Discussed case with cardiology, requests admission for monitoring overnight and repeat kidney function in the morning to monitor for kidney injury. I agreed to admit for further management. Patient hemodynamically stable on arrival to the floor. In no chest pain or distress. Problems addressed as follows: CAD Recalcitrant angina NYHA class III, heart failure -Complex procedure, good results achieved with 2 stents placed and improvement in flow down mid LAD. -Continue goal-directed repeat with aspirin 81 mg daily, prasugrel 10 mg daily -Resume home blood pressure regimen with irbesartan as formulary conversion 150 mg daily, amlodipine 10 mg daily, isosorbide mononitrate 20 mg daily. Will confirm with patient's demand prior to resuming - Echo from April 2022 shows EF 45%, grade 1 diastolic dysfunction. Appears euvolemic at this time. Does not appear to be in heart failure exacerbation Mood disorder: Continue Wellbutrin 150 mg daily COPD: Continue DuoNebs every 6 hours as needed. CKD with creatinine 1.3, BUN 28. I ordered CBC, CMP, magnesium for the morning. Gentle hydration with 500 cc LR overnight at 100 cc an hour. Tobacco use disorder: Continue nicotine patch daily Full code Heparinized and Technical Aide Cardiac diet Anticipate discharge in the morning.
[2023-09-16] MEDS: NITROGLYCERIN 0.4MG SL TABLET 0.400000000000000022 MG SL ×2 (22:36→23:21)
--- NOTE | 2023-09-16 22:36 | ECG_ITS ---
APPROVED REPORT Exam: Resting ECG HR:74 bpm ECG Measurements Heart Rate 74 AXES NH 180 P 67 QRSd 137 QRS -11 QT 389 T 61 QTc 416 Conclusion SINUS RHYTHM WITH OCCASIONAL VENTRICULAR PREMATURE COMPLEXES INTRAVENTRICULAR CONDUCTION DELAY [130+ ms QRS DURATION] ABNORMAL ECG UNCONFIRMED REPORT Electronically signed by : Rick Vernon MD 09/18/2023 08:40:52
--- NOTE | 2023-09-16 22:38 | EXP.PN ---
Subjective *Date: 09/16/23 *Time: 22:38 Interval history: Patient reported chest discomfort as previous to catheterization, describes it as dull and annoying midsternal Exam Data for Last 24 hours Vital signs and Labs for Last 24 Hours: Temp Pulse Resp BP Pulse Ox O2 Del Method 97.9 F 68 14 163/76 H 94 L Room Air 09/16/23 19:45 09/16/23 20:00 09/16/23 19:45 09/16/23 19:45 09/16/23 20:00 09/16/23 21:00 Laboratory Results - last 24 hr 09/16/23 08:32: WBC 7.7, RBC 4.49 L, Hgb 14.4, Hct 43.8, MCV 97.6 H, MCH 32.0 H, MCHC 32.8, RDW 15.0, Plt Count 275, MPV 7.8, Neut % (Auto) 66.9, Lymph % (Auto) 24.7, [place] % (Auto) 5.5, Eos % (Auto) 2.2, Baso % (Auto) 0.7, Neut # (Auto) 5.2, Lymph # (Auto) 1.9, [place] # (Auto) 0.4, Eos # (Auto) 0.2, Baso # (Auto) 0.1, Sodium 139, Potassium 4.3, Chloride 108 H, Carbon Dioxide 19 L, Anion Gap 16.3 H, BUN 28 H, Creatinine 1.30 H, Estimated Creat Clear 84, Estimated GFR 55 L, Est GFR ( Amer) 67, Glucose 98, Calcium 9.5 09/16/23 12:30: Activated Clotting Time 356 H* 09/16/23 13:08: Activated Clotting Time 269 H* D I & O for Last 24 hours: Intake & Output 09/13/23 09/14/23 09/15/23 09/16/23 23:59 23:59 23:59 23:59 Weight 96.332 kg Constitutional Constitutional: no acute distress Comments: Patient is alert oriented lying in the bed talking with me about his chest discomfort, but as he is woken up he had the discomfort has returned and it is the same as prior to the cardiac cath, Routine Chest/Breast/Axilla Exam Comments: No pain to palpation of the sternal area or anterior chest *Routine Respiratory Exam Respiratory: Present normal respiratory effort and able to speak in complete sentences *Routine Cardiovascular Exam Cardiovascular: Present RRR, Normal S1 and Normal S2 Assessment and Plan *Assessment and plan (1) Atypical angina: Start date: 09/16/23 Start time: 22:41 Status: Acute Category: Medical Code(s): I20.8 - Other forms of angina pectoris Plan 1. Patient reports he is having the same chest discomfort as previous to the catheterization, he describes it is kind of dull and irritating. But that it is very similar to what he had before before the catheterization. Plan, patient does not look to be in acute distress exam is basically negative but will order troponin and get an EKG to see if there has been any changes. I will monitor these results and if feels needed will contact the crm architect.
[2023-09-17] VITALS: BP 147/75; PULSE 80; PULSE 85; RESP 18; TEMP 36.9; O2SAT 95
[2023-09-17] MEDS: NITROGLYCERIN 0.4MG SL TABLET 0.400000000000000022 MG SL (00:20)
[2023-09-17] MEDS: AMLODIPINE 10MG TABLET 10 MG PO ×2 (00:31→08:27)
[2023-09-17] MEDS: [UNRECOGNIZED DRUG - OTHER] 1000 EACH PO (00:32)
--- NOTE | 2023-09-17 01:37 | P.PN_ITS ---
Subjective *Date: 09/17/23 *Time: 01:37 Interval history: Follow-up for continued chest pain post catheterization Exam Data for Last 24 hours Vital signs and Labs for Last 24 Hours: Temp Pulse Resp BP Pulse Ox O2 Del Method 98.4 F 85 18 147/75 H 95 Room Air 09/17/23 00:00 09/17/23 00:00 09/17/23 00:00 09/17/23 00:00 09/17/23 00:00 09/17/23 01:00 Laboratory Results - last 24 hr 09/16/23 08:32: WBC 7.7, RBC 4.49 L, Hgb 14.4, Hct 43.8, MCV 97.6 H, MCH 32.0 H, MCHC 32.8, RDW 15.0, Plt Count 275, MPV 7.8, Neut % (Auto) 66.9, Lymph % (Auto) 24.7, [place] % (Auto) 5.5, Eos % (Auto) 2.2, Baso % (Auto) 0.7, Neut # (Auto) 5.2, Lymph # (Auto) 1.9, [place] # (Auto) 0.4, Eos # (Auto) 0.2, Baso # (Auto) 0.1, Sodium 139, Potassium 4.3, Chloride 108 H, Carbon Dioxide 19 L, Anion Gap 16.3 H , BUN 28 H, Creatinine 1.30 H, Estimated Creat Clear 84, Estimated GFR 55 L, Est GFR ( Amer) 67, Glucose 98, Calcium 9.5 09/16/23 12:30: Activated Clotting Time 356 H* 09/16/23 13:08: Activated Clotting Time 269 H* D 09/16/23 23:29: Troponin I 4.40 H I & O for Last 24 hours: Intake & Output 09/14/23 09/15/23 09/16/23 09/17/23 23:59 23:59 23:59 23:59 Intake Total 500 / 500 Output Total 0 / 0 Balance 500 / 500 Weight 96.332 kg Constitutional Constitutional: mild distress Comments: Patient is doing well but continues to have midsternal chest discomfort.. Describing this as a pressure kind of ache not a sharp pain. History patient has had a catheterization today, and due to continued chest pain I called Dr. Gómez after an episode of 3 nitroglycerin given, reevaluating home meds and made sure he got his amlodipine and ranolazine. Symptoms continued and after speaking with Dr. Gómez will add Dilaudid. *Routine Neck Exam Neck: Present supple and full ROM *Routine Respiratory Exam Comments: Clear in all lung contreras *Routine Cardiovascular Exam Comments: Regular rate and rhythm with a EKG done that showed no acute changes *Routine Abdominal Exam Abdominal: Present soft Comments: Abdomen no distress able to sit up and move in the bed without any help Assessment and Plan *Assessment and plan (1) Atypical angina: Start date: 09/17/23 Status: Acute Category: Medical Code(s): I20.8 - Other forms of angina pectoris (2) CAD (coronary artery disease): Start date: 09/16/13 Problem Comment: Patient has has a long history of coronary artery disease Status: Chronic Qualifiers: Coronary Disease-Associated Artery/Lesion type: [place] artery [place] vs. transplanted heart: [place] heart Associated angina: with other forms of angina Qualified Code(s): I25.118 - Atherosclerotic heart disease of [place] coronary artery with other forms of angina pectoris Category: Medical Code(s): I25.10 - Atherosclerotic heart disease of [place] coronary artery without angina pectoris (3) Status post cardiac catheterization: Start date: 09/16/23 Start time: 09:00 Status: Acute Category: Surgical Code(s): Z98.890 - Other specified postprocedural states Plan 1. Angina status postcardiac catheterization: Patient has a long history of cardiac disease, he was on multiple medications to try to control this. Spoke with Dr. Gómez about the patient after we had tried sublingual nitroglycerin, given evening dose of amlodipine and Ranolazine. Speaking with Dr. Gómez he described the significant coronary artery disease that the patient had and would like to add some Dilaudid for tonight. Have ordered it at 0.5 to 2 mg every 30 minutes as needed pain. Patient is stable at this time besides having the chest wall discomfort we will continue to monitor him for pain after the Dilaudid has been administered.
[2023-09-17] MEDS: HYDROMORPHONE 2MG/ML SYRINGE IV (01:38)
[2023-09-17 04:00] VITALS: BP 151/89; PULSE 77; PULSE 82; RESP 16; TEMP 36.9; O2SAT 94; BMI 41.5
--- NOTE | 2023-09-17 05:55 | PC.NURSE ---
At around 2330 patient complained of chest pain after a heart cath procedure he had earlier in the day. He rated the pain a 4/10 and compared the pain to the pain he had pre cath. Troponin level and 12 lead was obtained. He was also given Nitroglycerin tablets to help with pain. He stated that the nitro tablets helped with the pain but would wear off after 15 minutes. He was given a total of 3 tablets. Patient was then given hydromorphone and stated that his pain level was a 1 out of 10. He has not complained of any pain since.
[2023-09-17 06:37] LABS: Basophils % 0.4 % (0.1-2.0); Eosinophils # 0.1 K/mm3 (0.0-0.4); Eosinophils % 0.8 % (0.1-12.0); Lymphocytes # 1.6 K/mm3 (0.7-4.5); Lymphocytes % 12.6 % (10-50); Mean Corpuscular HGB Conc 33.4 g/dL (31.8-35.4); Mean Corpuscular Hemoglobin 32.9 pg (27.0-31.2); Mean Corpuscular Volume 98.5 fl (80-94); Mean Platelet Volume 7.7 fl (7.4-10.4); Monocytes # 0.7 K/mm3 (0.1-1.0); Monocytes % 5.4 % (1.7-9.3); Neutrophils # 10.1 K/mm3 (1.8-7.8); Neutrophils % 80.9 % (37.0-80.0); Platelet Count 247 K/mm3 (142-424); Red Blood Count 4.26 M/mm3 (4.60-6.20); Red Cell Distribution Width 15.1 % (11.5-17.5); White Blood Count 12.5 K/mm3 (4.8-10.8)
[2023-09-17 06:42] LABS: Chloride 107 mmol/L (98-107); Potassium 4.3 mmoL/L (3.5-5.1); Sodium 137 mmol/L (136-145)
[2023-09-17 06:44] LABS: Alanine Aminotransferase 39 U/L (12-78); Aspartate Amino Transferase 165 U/L (17-59); Blood Urea Nitrogen 21 mg/dl (9-20); Creatinine Clearance Estimated 70 mL/min (50-200); Estimated Glomerular Filt Rate 75 ml/min (>60); GFR (African American) 90 ML/MIN (>60)
[2023-09-17 06:45] LABS: Albumin Level 4.4 g/dl (3.5-5.0); Albumin/Globulin Ratio 1.4 (1.1-1.8); Alkaline Phosphatase 65 U/L (38-126); Anion Gap 12.3 mEq/L (5-15); Bilirubin,Total 0.5 mg/dl (0.2-1.3); Calcium 9.1 mg/dl (8.4-10.2); Carbon Dioxide 22 mmol/L (22.0-30.0); Globulin 3.1 g/dL (1.3-3.2); Glucose 116 mg/dl (74-100); Magnesium 1.8 mg/dl (1.6-2.3); Total Protein,Serum 7.5 g/dl (6.3-8.2)
[2023-09-17 08:00] VITALS: BP 164/90; PULSE 69; PULSE 80; RESP 19; TEMP 36.6; O2SAT 97
[2023-09-17] MEDS: ISOSORBIDE MONO 60MG TAB.ER.24H 120 MG PO (08:27)
[2023-09-17] MEDS: IRBESARTAN 150MG TAB 150 MG PO (08:27)
--- NOTE | 2023-09-17 08:28 | HMH.PHAINT1 ---
Pharmacy Intervention Comments: MEDICATION RECONCILIATION COMPLETED ON PATIENT USING EXTERNAL FILL HISTORY FROM PHARMACY AND LIST FROM CARDIOLOGY OFFICE. -DAVE MOORE, JUAND
[2023-09-17] MEDS: ASPIRIN EC 81MG TABLET 81 MG PO (08:30)
[2023-09-17 09:00] VITALS: BMI 41.4
--- NOTE | 2023-09-17 09:07 | PC.NURSE ---
steward/stewardess [employer] class called me this a.m. to let me know that the pt had a run of v-tach. strip was printed and shown to sophia beatty. she suggested to give morning dose of metoprolol. no new orders at this time. pt denies any chest pain at this time.
[2023-09-17 09:15] LABS: Cholesterol 230 mg/dl (140-200); Triglycerides 238 mg/dl (30-150); VLDL Cholesterol 48 mg/dL (0-40)
[2023-09-17 09:16] LABS: Chol/HDL Ratio 8.2 (1-3.5); HDL Cholesterol 28 mg/dl (40-60)
[2023-09-17] MEDS: PRASUGREL 10MG TAB 10 MG PO (09:23)
[2023-09-17] MEDS: METOPROLOL SUCCINATE XL 50MG TABLET 50 MG PO (09:23)
[2023-09-17] MEDS: hydroCHLOROthiazide 25MG TABLET 25 MG PO (09:23)
[2023-09-17 09:26] LABS: Direct LDL Cholesterol 137.27 mg/dL (100-129)
[2023-09-17] MEDS: HYDROMORPHONE 2MG/ML SYRINGE 0.5 MG IV ×3 (10:13→20:09)
--- NOTE | 2023-09-17 10:23 | EXP.CARD.PN ---
Subjective Subjective Date: 09/17/23 Time: 09:00 Principal diagnosis: CAD s/p stenting, angina Interval history: This is a 68-year-old gentleman who came into the hospital for left cardiac catheterization yesterday with stenting to his LAD. The patient underwent an extensive procedure where he had a total of 16 conventional balloons and 2 intravascular lithotripsy balloon was used followed by 2 drug-eluting stents to the LAD. The patient did have interval loss of his chest first diagonal artery during the procedure. Through the night the patient complained of severe chest pain. He states that this was constant. He was given IV Dilaudid and did have improvement in his chest pain. This morning he states that he is still having pain in the center of his chest. He states that this is an aching sensation. It has improved slightly from through the night but is still present. He states that it comes and goes. It does not radiate. He has a little bit of associated shortness of breath. He is also had 2 runs of nonsustained ventricular tachycardia which is most likely reperfusion arrhythmia. The angina is most likely from the loss of his diagonal artery. The patient will need to be kept overnight again until he has had improvement in his symptoms. Exam Data for Last 24 hours Vital signs and Labs for Last 24 Hours: Temp Pulse Resp BP Pulse Ox O2 Del Method 97.8 F 69 19 164/90 H 97 Room Air 09/17/23 08:00 09/17/23 08:00 09/17/23 08:00 09/17/23 08:00 09/17/23 08:00 09/17/23 08:42 Laboratory Results - last 24 hr 09/16/23 12:30: Activated Clotting Time 356 H* 09/16/23 13:08: Activated Clotting Time 269 H* D 09/16/23 23:29: Troponin I 4.40 H 09/17/23 06:06: WBC 12.5 H D, RBC 4.26 L, Hgb 14.0 L, Hct 42.0, MCV 98.5 H, MCH 32.9 H, MCHC 33.4, RDW 15.1, Plt Count 247, MPV 7.7, Neut % (Auto) 80.9 H, Lymph % (Auto) 12.6, [place] % (Auto) 5.4, Eos % (Auto) 0.8, Baso % (Auto) 0.4, Neut # (Auto) 10.1 H, Lymph # (Auto) 1.6, [place] # (Auto) 0.7, Eos # (Auto) 0.1, Baso # (Auto) 0.0, Sodium 137, Potassium 4.3, Chloride 107, Carbon Dioxide 22, Anion Gap 12.3, BUN 21 H, Creatinine 1.00 D, Estimated Creat Clear 70, Estimated GFR 75, Est GFR ( Amer) 90 D, Glucose 116 H, Calcium 9.1, Magnesium 1.8, Total Bilirubin 0.5, AST 165 H, ALT 39, Alkaline Phosphatase 65, Total Protein 7.5, Albumin 4.4, Globulin 3.1, Albumin/Globulin Ratio 1.4, Triglycerides 238 H, Cholesterol 230 H, LDL Cholesterol Direct 137.27 H, VLDL Cholesterol 48 H, HDL Cholesterol 28 L, Cholesterol/HDL Ratio 8.2 H I & O for Last 24 hours: Intake & Output 09/14/23 09/15/23 09/16/23 09/17/23 23:59 23:59 23:59 23:59 Intake Total 1100 / 1100 Output Total 0 / 0 Balance 1100 / 1100 Weight 212 lb 6 oz 274 lb 9.6 oz Constitutional Constitutional: no acute distress and morbidly obese *Routine HEENT Exam Head: Present normocephalic and atraumatic ENT: Present mucous membranes moist *Routine Neck Exam Neck: Present supple, full ROM and normal carotid upstroke; Absent JVD, carotid bruit or lymphadenopathy *Routine Respiratory Exam Respiratory: Present CTA bilaterally, normal respiratory effort, able to speak in complete sentences and symmetric chest movement *Routine Cardiovascular Exam Cardiovascular: Present RRR, Normal S1 and Normal S2; Absent murmur or gallop *Routine Abdominal Exam Abdominal: Present soft and normoactive bowel sounds; Absent tenderness, distended or organomegaly *Routine Extremities Exam Extremities: Present full ROM, pulses intact and normal capillary refill; Absent cyanosis, clubbing or edema *Routine Skin Exam Skin: Present intact and warm; Absent erythema *Routine Neurological Exam Neurological: Present alert, oriented X3 and CN II-XII intact; Absent sensory deficit or motor deficit Routine Psychiatric Exam Psychiatric: Present normal affect Progress Note: A&P Assessment and plan (1) Ventricular tachycardia: Status: Acute (2) Atypical angina: Status: Acute (3) CAD (coronary artery disease): Problem details: Patient has has a long history of coronary artery disease Status: Chronic (4) Status post cardiac catheterization: Status: Acute (5) HLD (hyperlipidemia): Status: Chronic (6) Essential hypertension: Status: Chronic (7) PAD (peripheral artery disease): Status: Chronic (8) HFrEF (heart failure with reduced ejection fraction): Status: Acute Assessment and Plan Assessment and Plan for All Diagnoses:: Plan: 1. The patient was kept overnight following left cardiac catheterization due to his extensive procedure yesterday where he had 16 conventional balloons and 2 intravascular lithotripsy balloons and 2 stents placed all to the LAD. The patient did have interval loss of his diagonal artery during the procedure. He was kept overnight due to his complex procedure. His renal function this morning is normal. 2. The patient has had angina through the night and had to get IV Dilaudid. His symptoms are improved this morning but still present. He is still complaining of aching in his chest that can be severe but it is now coming and going and not as constant as it was. Continue IV Dilaudid as needed for the chest pain. 3. Continue Ranexa and isosorbide mononitrate for angina. 4. Coronary artery disease is likely stable. Continue Effient and aspirin for dual antiplatelet therapy. 5. His blood pressure is elevated. Will start HCTZ 25 mg p.o. daily for better blood pressure control. Continue olmesartan, Norvasc and Toprol. 6. The patient has known HFrEF. Continue Farxiga, Toprol and olmesartan. 7. His LDL goal is less than 55. He is on Repatha. He is intolerant to statins. 8. AICD is in place and followed in cardiology clinic. 9. Tobacco cessation is highly advised and counseled. 10. Further recommendations will be made pending the patient's response to treatment. Anticipate discharge home tomorrow once he has had improvement in his angina. Thank you for the opportunity to help participate in the care of this patient. All recommendations and orders are per Dr. Quiñonez.
[2023-09-17] MEDS: DAPAGLIFLOZIN PROPANEDIOL 10 MG TABLET PO (11:07)
[2023-09-17 12:00] VITALS: BP 147/78; PULSE 70; PULSE 80; RESP 18; TEMP 36.4; O2SAT 96
--- NOTE | 2023-09-17 15:44 | PC.NURSE ---
pt has overall had a good day. pt has had a few runs of v-tach (see previous note), but cardiology has been made aware. pt has been c/o chest pain on and off throughout the shift. pt has been medicated per may. cardiology was also made known of the chest pain and suggested that it was reperfusion pains. no new orders at this time.
[2023-09-17 16:00] VITALS: BP 164/83; PULSE 75; PULSE 80; RESP 19; TEMP 36.6; O2SAT 96
--- NOTE | 2023-09-17 16:52 | EXP.PN ---
Subjective *Date: 09/17/23 *Time: 16:52 Interval history: seen at bedside, he complained of chest pain overnight in substernal area, he said it felt like heart burn,no SOB Exam Data for Last 24 hours Vital signs and Labs for Last 24 Hours: Temp Pulse Resp BP Pulse Ox O2 Del Method 97.6 F 70 18 147/78 H 96 Room Air 09/17/23 12:00 09/17/23 12:00 09/17/23 12:00 09/17/23 12:00 09/17/23 12:00 09/17/23 16:45 Laboratory Results - last 24 hr 09/16/23 23:29: Troponin I 4.40 H 09/17/23 06:06: WBC 12.5 H D, RBC 4.26 L, Hgb 14.0 L, Hct 42.0, MCV 98.5 H, MCH 32.9 H, MCHC 33.4, RDW 15.1, Plt Count 247, MPV 7.7, Neut % (Auto) 80.9 H, Lymph % (Auto) 12.6, [place] % (Auto) 5.4, Eos % (Auto) 0.8, Baso % (Auto) 0.4, Neut # (Auto) 10.1 H, Lymph # (Auto) 1.6, [place] # (Auto) 0.7, Eos # (Auto) 0.1, Baso # (Auto) 0.0, Sodium 137, Potassium 4.3, Chloride 107, Carbon Dioxide 22, Anion Gap 12.3, BUN 21 H, Creatinine 1.00 D, Estimated Creat Clear 70, Estimated GFR 75, Est GFR ( Amer) 90 D, Glucose 116 H, Calcium 9.1, Magnesium 1.8, Total Bilirubin 0.5, AST 165 H, ALT 39, Alkaline Phosphatase 65, Total Protein 7.5, Albumin 4.4, Globulin 3.1, Albumin/Globulin Ratio 1.4, Triglycerides 238 H, Cholesterol 230 H, LDL Cholesterol Direct 137.27 H, VLDL Cholesterol 48 H, HDL Cholesterol 28 L, Cholesterol/HDL Ratio 8.2 H I & O for Last 24 hours: Intake & Output 09/14/23 09/15/23 09/16/23 09/17/23 23:59 23:59 23:59 23:59 Intake Total 1220 / 1220 Output Total 0 / 0 Balance 1220 / 1220 Weight 96.332 kg 124 kg Constitutional Constitutional: no acute distress *Routine HEENT Exam Head: Present normocephalic Eye: Present EOMI and PERRL ENT: Present mucous membranes moist *Routine Neck Exam Neck: Present supple; Absent lymphadenopathy *Routine Respiratory Exam Respiratory: Present CTA bilaterally *Routine Cardiovascular Exam Cardiovascular: Present RRR *Routine Abdominal Exam Abdominal: Present soft and normoactive bowel sounds; Absent tenderness *Routine Extremities Exam Extremities: Absent cyanosis, clubbing or edema *Routine Skin Exam Skin: Present warm; Absent rash *Routine Neurological Exam Neurological: Present alert and oriented X3 Assessment and Plan *Assessment and plan (1) Atypical angina: Status: Acute Category: Medical Code(s): I20.8 - Other forms of angina pectoris (2) CAD (coronary artery disease): Problem Comment: Patient has has a long history of coronary artery disease Status: Chronic Qualifiers: Coronary Disease-Associated Artery/Lesion type: [place] artery [place] vs. transplanted heart: [place] heart Associated angina: with other forms of angina Qualified Code(s): I25.118 - Atherosclerotic heart disease of [place] coronary artery with other forms of angina pectoris Category: Medical Code(s): I25.10 - Atherosclerotic heart disease of [place] coronary artery without angina pectoris (3) GERD (gastroesophageal reflux disease): Status: Chronic Qualifiers: Esophagitis presence: without esophagitis Qualified Code(s): K21.9 - Gastro-esophageal reflux disease without esophagitis Category: Medical Code(s): K21.9 - Gastro-esophageal reflux disease without esophagitis (4) COPD (chronic obstructive pulmonary disease): Status: Chronic Qualifiers: COPD type: emphysema Emphysema type: other Qualified Code(s): J43.8 - Other emphysema Category: Medical Code(s): J44.9 - Chronic obstructive pulmonary disease, unspecified (5) Obesity: Status: Chronic Qualifiers: Obesity type: due to excess calories Obesity classification: adult class 1 (BMI 30 - 34.9) Serious obesity comorbidity presence: without serious comorbidity Body mass index: BMI 34.0-34.9 Qualified Code(s): E66.09 - Other obesity due to excess calories; Z68.34 - Body mass index (BMI) 34.0-34.9, adult Category: Medical Code(s): E66.9 - Obesity, unspecified (6) Tobacco dependence syndrome: Status: Chronic Category: Medical Code(s): F17.200 - Nicotine dependence, unspecified, uncomplicated (7) PAD (peripheral artery disease): Status: Chronic Category: Medical Code(s): I73.9 - Peripheral vascular disease, unspecified (8) HLD (hyperlipidemia): Status: Chronic Qualifiers: Hyperlipidemia type: mixed hyperlipidemia Qualified Code(s): E78.2 - Mixed hyperlipidemia Category: Medical Code(s): E78.5 - Hyperlipidemia, unspecified (9) Essential hypertension: Status: Chronic Category: Medical Code(s): I10 - Essential (primary) hypertension (10) NYHA Class III cardiovascular function: Status: Chronic Category: Medical Plan 68-year-old male with recalcitrant angina brought in electively for left heart cath. Found to have complex mid LAD lesion. Took significant effort to reduce lesion. Ultimately required 18 balloons and 2 stents. Achieved good results with improved flow. CAD Recalcitrant angina NYHA class III, heart failure -Complex procedure, good results achieved with 2 stents placed and improvement in flow down mid LAD. -Continue goal-directed repeat with aspirin 81 mg daily, prasugrel 10 mg daily -Resume home blood pressure regimen with irbesartan as formulary conversion 150 mg daily, amlodipine 10 mg daily, isosorbide mononitrate 20 mg daily. - Echo from April 2022 shows EF 45%, grade 1 diastolic dysfunction. Mood disorder: Continue Wellbutrin 150 mg daily COPD: Continue DuoNebs every 6 hours as needed. CKD - stable, monitor Tobacco use disorder: Continue nicotine patch daily Full code Heparinized and [employer] [place] Cardiac diet cardiology recomemnded stay 1 more day overnght for chest pains monitoring
[2023-09-17] MEDS: FLUTICASONE/UMECLIDIN/VILANTER 100/62.5/25MCG INHALER 1 PUFF IH (18:01)
[2023-09-17] MEDS: BUPROPION 150 MG 1 EACH PO (18:09)
[2023-09-17 20:00] VITALS: BP 160/76; PULSE 68; PULSE 79; RESP 19; TEMP 37.2; O2SAT 94
[2023-09-17] MEDS: RANOLAZINE 500MG ER TABLET 1000 MG PO (20:07)
[2023-09-18] VITALS: BP 143/57; PULSE 73; PULSE 75; RESP 18; TEMP 37.1; O2SAT 92
[2023-09-18] MEDS: HYDROMORPHONE 2MG/ML SYRINGE 0.5 MG IV (00:18)
[2023-09-18 04:00] VITALS: BP 136/67; PULSE 87; PULSE 88; RESP 18; TEMP 36.8; O2SAT 94; BMI 41.3
--- NOTE | 2023-09-18 05:27 | PC.NURSE ---
Patient has slept the majority of the shift. He did not call out for anything and denies any chest pain. Call light within reach
[2023-09-18] MEDS: FLUTICASONE/UMECLIDIN/VILANTER 100/62.5/25MCG INHALER 1 PUFF IH (06:00)
[2023-09-18 06:01] VITALS: O2SAT 92
[2023-09-18 06:44] LABS: Basophils % 0.3 % (0.1-2.0); Eosinophils # 0.1 K/mm3 (0.0-0.4); Eosinophils % 0.5 % (0.1-12.0); Hematocrit 41.5 % (42.0-52.0); Hemoglobin 13.6 g/dL (14.1-18.0); Lymphocytes # 2.4 K/mm3 (0.7-4.5); Lymphocytes % 19.3 % (10-50); Mean Corpuscular HGB Conc 32.9 g/dL (31.8-35.4); Mean Corpuscular Hemoglobin 31.6 pg (27.0-31.2); Mean Corpuscular Volume 96.1 fl (80-94); Mean Platelet Volume 7.9 fl (7.4-10.4); Monocytes # 0.8 K/mm3 (0.1-1.0); Monocytes % 6.6 % (1.7-9.3); Neutrophils # 8.9 K/mm3 (1.8-7.8); Neutrophils % 73.3 % (37.0-80.0); Platelet Count 240 K/mm3 (142-424); Red Blood Count 4.32 M/mm3 (4.60-6.20); Red Cell Distribution Width 14.7 % (11.5-17.5); White Blood Count 12.2 K/mm3 (4.8-10.8)
[2023-09-18 06:45] LABS: Chloride 104 mmol/L (98-107); Potassium 4.2 mmoL/L (3.5-5.1); Sodium 134 mmol/L (136-145)
[2023-09-18 06:48] LABS: Anion Gap 12.2 mEq/L (5-15); Blood Urea Nitrogen 20 mg/dl (9-20); Carbon Dioxide 22 mmol/L (22.0-30.0); Creatinine Clearance Estimated 64 mL/min (50-200); Estimated Glomerular Filt Rate 67 ml/min (>60); GFR (African American) 81 ML/MIN (>60)
[2023-09-18 06:49] LABS: Glucose 106 mg/dl (74-100)
[2023-09-18 07:53] VITALS: BP 135/86; PULSE 86; RESP 20; TEMP 37; O2SAT 95
[2023-09-18 08:00] VITALS: PULSE 75
[2023-09-18] MEDS: PT OWN MED *ASPIRIN 81 MG EC TAB 1 EACH PO (08:36)
[2023-09-18] MEDS: AMLODIPINE 10 MG 1 EACH PO (08:36)
[2023-09-18] MEDS: PRASUGREL 10 MG 1 EACH PO (08:36)
[2023-09-18] MEDS: METOPROLOL SUCC 50 MG 1 EACH PO (08:36)
[2023-09-18] MEDS: FARXIGA 10 MG 1 EACH PO (08:36)
[2023-09-18] MEDS: ISOSORBIDE MONO 1 EACH PO (08:36)
[2023-09-18] MEDS: BUPROPION 150 MG 1 EACH PO (08:36)
[2023-09-18] MEDS: RANOLAZINE 500MG ER TABLET 1000 MG PO (08:38)
[2023-09-18] MEDS: IRBESARTAN 150MG TAB 150 MG PO (08:39)
[2023-09-18] MEDS: hydroCHLOROthiazide 25MG TABLET 25 MG PO (08:39)
--- NOTE | 2023-09-18 10:36 | EXP.CARD.PN ---
Subjective Subjective Date: 09/18/23 Time: 09:00 Principal diagnosis: CAD s/p stenting, angina Interval history: This is a 68-year-old white gentleman who presented to the hospital to undergo a left cardiac catheterization. He did have stenting to the LAD with 16 conventional balloons, 2 intravascular lithotripsy balloons and 2 drug-eluting stents placed to the LAD. The patient did have interval loss of his diagonal artery during the procedure. He continued to have chest pain following procedure and was treated with IV Dilaudid during the day yesterday. Today he reports that his symptoms have significantly improved. He just has a little aching intermittently but it has almost essentially resolved. He denies any shortness of breath or edema. He denies any fever, chills, nausea, vomiting, diarrhea, PND orthopnea. The patient is ready to be discharged home. Exam Data for Last 24 hours Vital signs and Labs for Last 24 Hours: Temp Pulse Resp BP Pulse Ox O2 Del Method 98.6 F 75 20 135/86 95 Room Air 09/18/23 07:53 09/18/23 08:00 09/18/23 07:53 09/18/23 07:53 09/18/23 07:53 09/18/23 09:00 Laboratory Results - last 24 hr 09/18/23 05:45: WBC 12.2 H, RBC 4.32 L, Hgb 13.6 L, Hct 41.5 L, MCV 96.1 H, MCH 31.6 H, MCHC 32.9, RDW 14.7, Plt Count 240, MPV 7.9, Neut % (Auto) 73.3, Lymph % (Auto) 19.3, [place] % (Auto) 6.6, Eos % (Auto) 0.5, Baso % (Auto) 0.3, Neut # (Auto) 8.9 H, Lymph # (Auto) 2.4, [place] # (Auto) 0.8, Eos # (Auto) 0.1, Baso # (Auto) 0.0, Sodium 134 L, Potassium 4.2, Chloride 104, Carbon Dioxide 22, Anion Gap 12.2, BUN 20, Creatinine 1.10, Estimated Creat Clear 64, Estimated GFR 67, Est GFR ( Amer) 81, Glucose 106 H, Calcium 9.0 I & O for Last 24 hours: Intake & Output 09/15/23 09/16/23 09/17/23 09/18/23 23:59 23:59 23:59 23:59 Intake Total 1999 420 / 420 Output Total 0 / 0 Balance 1999 420 / 420 Weight 212 lb 6 oz 273 lb 5.971 oz 272 lb 3 oz Constitutional Constitutional: no acute distress and morbidly obese *Routine HEENT Exam Head: Present normocephalic and atraumatic ENT: Present mucous membranes moist *Routine Neck Exam Neck: Present supple, full ROM and normal carotid upstroke; Absent JVD, carotid bruit or lymphadenopathy *Routine Respiratory Exam Respiratory: Present CTA bilaterally, normal respiratory effort, able to speak in complete sentences and symmetric chest movement *Routine Cardiovascular Exam Cardiovascular: Present RRR, Normal S1 and Normal S2; Absent murmur or gallop *Routine Abdominal Exam Abdominal: Present soft and normoactive bowel sounds; Absent tenderness, distended or organomegaly *Routine Extremities Exam Extremities: Present full ROM, pulses intact and normal capillary refill; Absent cyanosis, clubbing or edema *Routine Skin Exam Skin: Present intact and warm; Absent erythema *Routine Neurological Exam Neurological: Present alert, oriented X3 and CN II-XII intact; Absent sensory deficit or motor deficit Routine Psychiatric Exam Psychiatric: Present normal affect Progress Note: A&P Assessment and plan (1) Atypical angina: Status: Acute (2) CAD (coronary artery disease): Problem details: Patient has has a long history of coronary artery disease Status: Chronic (3) GERD (gastroesophageal reflux disease): Status: Chronic (4) COPD (chronic obstructive pulmonary disease): Status: Chronic (5) Obesity: Status: Chronic (6) Tobacco dependence syndrome: Status: Chronic (7) PAD (peripheral artery disease): Status: Chronic (8) HLD (hyperlipidemia): Status: Chronic (9) Essential hypertension: Status: Chronic (10) HFrEF (heart failure with reduced ejection fraction): Status: Acute (11) Ventricular tachycardia: Status: Acute (12) Status post cardiac catheterization: Status: Acute Assessment and Plan Assessment and Plan for All Diagnoses:: Plan: 1. The patient was kept overnight following left cardiac catheterization due to his extensive procedure with 16 conventional balloons and 2 intravascular lithotripsy balloons and 2 stents placed all to the LAD. The patient did have interval loss of his diagonal artery during the procedure. He was kept overnight due to his complex procedure. He continued to have angina yesterday which was likely from the interval loss of his LAD. He was kept an additional night for IV Dilaudid for his chest pain and his chest pain/angina has significantly improved this morning. 2. Continue Ranexa and isosorbide mononitrate for angina. 3. Coronary artery disease is likely stable. Continue Effient and aspirin for dual antiplatelet therapy. 4. His blood pressure is well-controlled today. Continue olmesartan, Norvasc, HCTZ and Toprol. 6. The patient has known HFrEF. Continue Farxiga, Toprol and olmesartan. 7. His LDL goal is less than 55. His LDL is 137. He is on Repatha. He is intolerant to statins. 8. AICD is in place and followed in cardiology clinic. 9. Tobacco cessation is highly advised and counseled. 10. No further recommendations at this time from a cardiac standpoint. The patient can be discharged home today from a cardiac standpoint with follow-up in cardiology clinic in 1 week. 11. The patient can be discharged on the following cardiac medications: Norvasc 10 mg p.o. daily, aspirin 81 mg daily, Farxiga 10 mg daily, Repatha 140 mg subcutaneous injection every 2 weeks, isosorbide mononitrate 120 mg daily, Toprol XL 50 mg p.o. daily, nitroglycerin 0.4 mg sublingual as needed for chest pain, olmesartan 40 mg p.o. daily, Effient 10 mg daily, Ranexa 1000 mg p.o. twice daily and hydrochlorothiazide 25 mg daily. Thank you for the opportunity to help participate in the care of this patient. All recommendations and orders are per Dr. Quiñonez.
[2023-09-18 12:00] VITALS: PULSE 80
--- NOTE | 2023-09-18 13:05 | P.DS_ITS ---
General Admission date:: 09/16/23 Discharge date: 09/18/23 HPI HPI HPI: Mr. Thurman is a 68-year-old male with extensive history of coronary artery disease, atypical angina, COPD, GERD, obesity. Continues to smoke. Has been cared for by cardiology for over 20 years. They have been treating recalcitrant angina with no improvement with medical optimization. Brought in for elective left heart cath today due to known mid LAD lesion that failed conservative management. Procedure was difficult due to significant calcification. Ultimately received 2 stents. Tolerated procedure well however given extensive nature of procedure, location of lesion, patient's comorbidities, cardiology requested admission for observation overnight, gentle hydration, monitoring of kidney function. On arrival to the floor, patient is chest pain-free. On room air. Fatigued from the procedure and sedation. Denies any nausea, vomiting, confusion, headache. No significant pain at right wrist from radial approach. Hospital Course Hospital Course Hospital Course: 68-year-old male with recalcitrant angina brought in electively for left heart cath. Found to have complex mid LAD lesion. Took significant effort to reduce lesion. Ultimately required 18 balloons and 2 stents. Achieved good results with improved flow. CAD Recalcitrant angina NYHA class III, heart failure -Complex procedure, good results achieved with 2 stents placed and improvement in flow down mid LAD. Patient was evaluated by cardiology, patient was recommended for discharge and f/u as OP. Norvasc 10 mg p.o. daily, aspirin 81 mg daily, Farxiga 10 mg daily, Repatha 140 mg subcutaneous injection every 2 weeks, isosorbide mononitrate 120 mg daily, Toprol XL 50 mg p.o. daily, nitroglycerin 0.4 mg sublingual as needed for chest pain, olmesartan 40 mg p.o. daily, Effient 10 mg daily, Ranexa 1000 mg p.o. twice daily and hydrochlorothiazide 25 mg daily. On the date of discharge, the patient reported feeling stable. The patient was found not to be in any acute distress, and no new abnormalities on physical examination. Further, the patient expressed appropriate understanding of, and agreement with, the discharge recommendations, medications, and plan. Time spent 37 mins Exam Data for Last 24 hours Vital signs and Labs for Last 24 Hours: Temp Pulse Resp BP Pulse Ox O2 Del Method 98.6 F 75 20 135/86 95 Room Air 09/18/23 07:53 09/18/23 08:00 09/18/23 07:53 09/18/23 07:53 09/18/23 07:53 09/18/23 10:45 Laboratory Results - last 24 hr 09/18/23 05:45: WBC 12.2 H, RBC 4.32 L, Hgb 13.6 L, Hct 41.5 L, MCV 96.1 H, MCH 31.6 H, MCHC 32.9, RDW 14.7, Plt Count 240, MPV 7.9, Neut % (Auto) 73.3, Lymph % (Auto) 19.3, [place] % (Auto) 6.6, Eos % (Auto) 0.5, Baso % (Auto) 0.3, Neut # (Auto) 8.9 H, Lymph # (Auto) 2.4, [place] # (Auto) 0.8, Eos # (Auto) 0.1, Baso # (Auto) 0.0, Sodium 134 L, Potassium 4.2, Chloride 104, Carbon Dioxide 22, Anion Gap 12.2, BUN 20, Creatinine 1.10, Estimated Creat Clear 64, Estimated GFR 67, Est GFR ( Amer) 81, Glucose 106 H, Calcium 9.0 I & O for Last 24 hours: Intake & Output 09/15/23 09/16/23 09/17/23 09/18/23 23:59 23:59 23:59 23:59 Intake Total 1999 420 / 420 Output Total 0 / 0 Balance 1999 420 / 420 Weight 96.332 kg 124 kg 123.462 kg Constitutional Constitutional: no acute distress *Routine HEENT Exam Head: Present normocephalic Eye: Present EOMI and PERRL ENT: Present mucous membranes moist *Routine Neck Exam Neck: Present supple; Absent lymphadenopathy *Routine Respiratory Exam Respiratory: Present CTA bilaterally *Routine Cardiovascular Exam Cardiovascular: Present RRR *Routine Abdominal Exam Abdominal: Present soft and normoactive bowel sounds; Absent tenderness *Routine Extremities Exam Extremities: Absent cyanosis, clubbing or edema *Routine Skin Exam Skin: Present warm; Absent rash *Routine Neurological Exam Neurological: Present alert and oriented X3 Results Data Completed and Pending Labs on day of discharge: Labs from last 24 hours 09/18/23 05:45 WBC 12.2 H RBC 4.32 L Hgb 13.6 L Hct 41.5 L MCV 96.1 H MCH 31.6 H MCHC 32.9 RDW 14.7 Plt Count 240 MPV 7.9 Neut % (Auto) 73.3 Lymph % (Auto) 19.3 [place] % (Auto) 6.6 Eos % (Auto) 0.5 Baso % (Auto) 0.3 Neut # (Auto) 8.9 H Lymph # (Auto) 2.4 [place] # (Auto) 0.8 Eos # (Auto) 0.1 Baso # (Auto) 0.0 Sodium 134 L Potassium 4.2 Chloride 104 Carbon Dioxide 22 Anion Gap 12.2 BUN 20 Creatinine 1.10 Estimated Creat Clear 64 Estimated GFR 67 Est GFR ( Amer) 81 Glucose 106 H Calcium 9.0 DS: Diagnosis Discharge Diagnosis (1) Atypical angina: Status: Acute Code(s): I20.8 - Other forms of angina pectoris (2) CAD (coronary artery disease): Status: Chronic Code(s): I25.10 - Atherosclerotic heart disease of [place] coronary artery without angina pectoris Qualifiers: Coronary Disease-Associated Artery/Lesion type: [place] artery [place] vs. transplanted heart: [place] heart Associated angina: with other forms of angina Qualified Code(s): I25.118 - Atherosclerotic heart disease of [place] coronary artery with other forms of angina pectoris Problem details: Patient has has a long history of coronary artery disease (3) GERD (gastroesophageal reflux disease): Status: Chronic Code(s): K21.9 - Gastro-esophageal reflux disease without esophagitis Qualifiers: Esophagitis presence: without esophagitis Qualified Code(s): K21.9 - Gastro-esophageal reflux disease without esophagitis (4) COPD (chronic obstructive pulmonary disease): Status: Chronic Code(s): J44.9 - Chronic obstructive pulmonary disease, unspecified Qualifiers: COPD type: emphysema Emphysema type: other Qualified Code(s): J43.8 - Other emphysema (5) Obesity: Status: Chronic Code(s): E66.9 - Obesity, unspecified Qualifiers: Obesity type: due to excess calories Obesity classification: adult class 1 (BMI 30 - 34.9) Serious obesity comorbidity presence: without serious comorbidity Body mass index: BMI 34.0-34.9 Qualified Code(s): E66.09 - Other obesity due to excess calories; Z68.34 - Body mass index (BMI) 34.0-34.9, adult (6) Tobacco dependence syndrome: Status: Chronic Code(s): F17.200 - Nicotine dependence, unspecified, uncomplicated (7) PAD (peripheral artery disease): Status: Chronic Code(s): I73.9 - Peripheral vascular disease, unspecified (8) HLD (hyperlipidemia): Status: Chronic Code(s): E78.5 - Hyperlipidemia, unspecified Qualifiers: Hyperlipidemia type: mixed hyperlipidemia Qualified Code(s): E78.2 - Mixed hyperlipidemia (9) Essential hypertension: Status: Chronic Code(s): I10 - Essential (primary) hypertension (10) HFrEF (heart failure with reduced ejection fraction): Status: Acute Code(s): I50.20 - Unspecified systolic (congestive) heart failure (11) Ventricular tachycardia: Status: Acute Code(s): I47.20 - Ventricular tachycardia, unspecified (12) Status post cardiac catheterization: Status: Acute Code(s): Z98.890 - Other specified postprocedural states Meds Home Medications and Allergies Home Medications Medication Instructions Recorded Confirmed Type ascorbic acid (vitamin C) 1,000 mg 1,000 mg PO DAILY 04/10/17 09/17/23 History tablet aspirin 81 mg tablet,delayed 81 mg PO DAILY 04/10/17 09/17/23 History release (Adult Low Dose Aspirin) bupropion HCl 150 mg tablet,12 hr 150 mg PO DAILY 04/10/17 09/17/23 History sustained-release fluticasone fur. 100 mcg-umeclid 1 inh inhalation DAILY 10/19/21 09/17/23 History 62.5 mcg-vilant 25 mcg inhalat.powder (Trelegy Ellipta) dapagliflozin propanediol 10 mg 10 mg PO DAILY #90 tabs 10/26/22 09/17/23 Rx tablet (Farxiga) metoprolol succinate 50 mg 50 mg PO DAILY #30 tabs 10/26/22 09/17/23 Rx tablet,extended release 24 hr (Toprol XL) ranolazine 1,000 mg 1,000 mg PO BID #60 tabs 07/16/23 09/17/23 Rx tablet,extended release,12 hr evolocumab 140 mg/mL subcutaneous 140 mg SQ Q2W #2 mL 07/22/23 09/17/23 Rx pen injector (Repatha SureClick) amlodipine 10 mg tablet 10 mg PO DAILY #90 tabs 08/06/23 09/17/23 Rx isosorbide mononitrate 120 mg 120 mg PO DAILY #90 tabs 08/06/23 09/17/23 Rx tablet,extended release 24 hr nitroglycerin 0.4 mg sublingual 0.4 mg sublingual Q5MINP PRN chest 09/17/23 09/17/23 History tablet (Nitrostat) pain olmesartan 40 mg tablet 40 mg PO DAILY 09/17/23 09/17/23 History prasugrel 10 mg tablet 10 mg PO DAILY 09/17/23 09/17/23 History hydrochlorothiazide 25 mg tablet 25 mg PO DAILY 30 days #30 tabs 09/18/23 Rx nicotine 21 mg/24 hr daily 21 mg transdermal DAILYP PRN 09/18/23 Rx transdermal patch Nicotine Cravings 30 days #30 ea New Prescriptions to Start Prescriptions: hydrochlorothiazide Rob,Irfan nicotine Rob,Irfan Allergies Allergy/AdvReac Type Severity Reaction Status Date / Time rosuvastatin [From Crestor] Allergy Unknown Unknown Verified 09/16/23 08:16 allergy reaction Discharge Plan Disposition Patient Disposition: Home, Self-Care Condition: Good Follow up Plan Follow up with: Sharif Gómez MD [Staff Physician] - 09/25/23 10:15 am (appointment with vaishnavi at [facility] 09/23 at 2:20) Prescriptions/Medication Reconciliation: New nicotine 21 mg/24 hr Patch 24 Hour 21 mg transdermal DAILYP PRN (Reason: Nicotine Cravings) 30 Days Qty: 30 0RF hydrochlorothiazide 25 mg Tablet 25 mg PO DAILY 30 Days Qty: 30 0RF Continued aspirin [Adult Low Dose Aspirin] 81 mg tablet,delayed release (DR/EC) 81 mg PO DAILY bupropion HCl 150 mg tablet extended release 12 hr 150 mg PO DAILY ascorbic acid (vitamin C) 1,000 mg tablet 1,000 mg PO DAILY Trelegy Ellipta 100-62.5-25 mcg blister with device 1 inh IH DAILY Repatha SureClick 140 mg/mL pen injector 140 mg SQ Q2W Qty: 2 5RF amlodipine 10 mg tablet 10 mg PO DAILY Qty: 90 3RF isosorbide mononitrate 120 mg tablet extended release 24 hr 120 mg PO DAILY Qty: 90 3RF Farxiga 10 mg tablet 10 mg PO DAILY Qty: 90 3RF metoprolol succinate [Toprol XL] 50 mg tablet extended release 24 hr 50 mg PO DAILY Qty: 30 3RF ranolazine 1,000 mg tablet extended release 12 hr 1,000 mg PO BID Qty: 60 5RF prasugrel 10 mg tablet 10 mg PO DAILY Patient Comments: TAKE ONE (1) TABLET EVERY DAY BY ORAL ROUTE FOR 90 DAYS. nitroglycerin [Nitrostat] 0.4 mg tablet, sublingual 0.4 mg sublingual Q5MINP PRN (Reason: chest pain) Rx Instructions: do not exceed 3 doses per episode olmesartan 40 mg tablet 40 mg PO DAILY Problem Reconciliation Problems Reviewed?: Yes Patient Discharge Instructions ACTIVITY: Ambulate as tolerated DIET: continue same diet Patient Instructions: The Mediterranean Diet and Good Health, Heart-Healthy Diet, Two Gram Sodium Diet, DI for Cardiac Catheterization, DI for Surgical Site Infection, DI for Moderate Sedation, DI for Post-Surgical Bleeding Providers Primary Care Provider: Provider,Referral Admit Provider: Rudi Westfall Attending Provider: Rudi Westfall
--- NOTE | 2023-09-19 13:18 | CARE MANAGER ---
Spoke with patient related to hospital discharge. He is having some dizziness, but was having that before the procedure. We discussed moving from positions slowly. He is taking his new medications and is aware of follow up appointment and the need for labs prior as well. He denies any questions or concerns. ABHISHEK Preston
== END 2023-09-18 13:32 | disposition home or self-care (01) ==
LOC: 2ND 14:56
PROVIDERS: Internal Medicine; Nurse Practitioner Family; Admitting Provider Internal Medicine Adolescent Medicine; Visit Provider Internal Medicine Adolescent Medicine
DX: I25.110 Atherosclerotic heart disease of native coronary artery with unstable angina pectoris (principal); I50.22 Chronic systolic (congestive) heart failure; I73.9 Peripheral vascular disease, unspecified; E78.2 Mixed hyperlipidemia; I11.0 Hypertensive heart disease with heart failure; K21.9 Gastro-esophageal reflux disease without esophagitis; J43.8 Other emphysema; E66.09 Other obesity due to excess calories; Z68.41 Body mass index [BMI] 40.0-44.9, adult; I47.20 Ventricular tachycardia, unspecified; F17.210 Nicotine dependence, cigarettes, uncomplicated; T82.855A Stenosis of coronary artery stent, initial encounter; Z79.899 Other long term (current) drug therapy; I77.1 Stricture of artery
CPT/HCPCS: 36415; 80048; 80053; 80061; 83735; 84484; 85025; 85347; 92928; 92972; 93005; 93458; 94640; 99152; 99153; C1725; C1761; C1769; C1874; C9600; G0378; J1170; J1644; J2250; J3010; Q9967

== ENCOUNTER 2023-09-25 09:46 | Outpatient (CLI) | payer MEDICARE, OTHER, SELFPAY ==
[2023-09-25 09:55] LABS: MANUAL DIFFERENTIAL MANUAL DIFFERENTIAL (MANUAL DIFF)
[2023-09-25 10:32] LABS: Basophils % 0.4 % (0.1-2.0); Eosinophils # 0.2 K/mm3 (0.0-0.4); Eosinophils % 2.2 % (0.1-12.0); Hematocrit 42.1 % (42.0-52.0); Hemoglobin 13.3 g/dL (14.1-18.0); Lymphocytes # 1.7 K/mm3 (0.7-4.5); Lymphocytes % 22.7 % (10-50); Mean Corpuscular HGB Conc 31.6 g/dL (31.8-35.4); Mean Corpuscular Hemoglobin 31.8 pg (27.0-31.2); Mean Corpuscular Volume 100.5 fl (80-94); Mean Platelet Volume 7.9 fl (7.4-10.4); Monocytes # 0.4 K/mm3 (0.1-1.0); Neutrophils # 5.3 K/mm3 (1.8-7.8); Neutrophils % 69.7 % (37.0-80.0); Platelet Count 341 K/mm3 (142-424); Red Blood Count 4.19 M/mm3 (4.60-6.20); Red Cell Distribution Width 14.5 % (11.5-17.5); White Blood Count 7.6 K/mm3 (4.8-10.8)
[2023-09-25 10:57] LABS: Eosinophils % 2 % (0-3); Lymphocytes % 24 % (10-50); Macrocytosis 1+; Monocytes % 2 % (2-9); Neutrophils % 72 % (42-76); Platelet Estimate Normal; Total Cells Counted 100
[2023-09-25 11:01] LABS: Anion Gap 15.5 mEq/L (5-15); Blood Urea Nitrogen 25 mg/dl (9-20); Calcium 9.5 mg/dl (8.4-10.2); Carbon Dioxide 25 mmol/L (22.0-30.0); Chloride 103 mmol/L (98-107); Estimated Glomerular Filt Rate 47 ml/min (>60); GFR (African American) 57 ML/MIN (>60); Glucose 93 mg/dl (74-100); Potassium 4.5 mmoL/L (3.5-5.1); Sodium 139 mmol/L (136-145)
== END 2023-09-25 23:59 | disposition home or self-care (01) ==
PROVIDERS: PCP Physician Assistant; Visit Provider Internal Medicine
DX: I25.10 Atherosclerotic heart disease of native coronary artery without angina pectoris (principal)
CPT/HCPCS: 36415; 80048; 85007; 85014; 85018; 85048; 85049

== ENCOUNTER 2024-04-13 15:50 | Outpatient (CLI) | payer MEDICARE, OTHER, SELFPAY ==
[2024-04-13 16:32] LABS: Basophils % 0.4 % (0.1-2.0); Eosinophils # 0.1 K/mm3 (0.0-0.4); Eosinophils % 1.4 % (0.1-12.0); Hematocrit 40.9 % (42.0-52.0); Hemoglobin 13.3 g/dL (14.1-18.0); Lymphocytes # 2.2 K/mm3 (0.7-4.5); Lymphocytes % 29.4 % (10-50); Mean Corpuscular HGB Conc 32.5 g/dL (31.8-35.4); Mean Corpuscular Hemoglobin 30.9 pg (27.0-31.2); Mean Corpuscular Volume 95.1 fl (80-94); Monocytes # 0.6 K/mm3 (0.1-1.0); Neutrophils # 4.6 K/mm3 (1.8-7.8); Neutrophils % 60.5 % (37.0-80.0); Platelet Count 260 K/mm3 (142-424); Red Cell Distribution Width 13.1 % (11.5-17.5); White Blood Count 7.6 K/mm3 (4.8-10.8)
[2024-04-13 17:13] LABS: Albumin Level 4.2 g/dl (3.5-5.0); Chloride 106 mmol/L (98-107); Sodium 136 mmol/L (136-145)
[2024-04-13 17:14] LABS: Potassium 4.9 mmoL/L (3.5-5.1)
[2024-04-13 17:16] LABS: Alanine Aminotransferase 20 U/L (12-78); Alkaline Phosphatase 58 U/L (38-126); Anion Gap 11.9 mEq/L (5-15); Aspartate Amino Transferase 24 U/L (17-59); Bilirubin,Direct 0.2 mg/dl (0.0-0.4); Bilirubin,Indirect 0.1 mg/dL (0.0-0.9); Bilirubin,Total 0.3 mg/dl (0.2-1.3); Bilirubin,Unconjugated 0.1 mg/dL (0.0-1.1); Blood Urea Nitrogen 22 mg/dl (9-20); Calcium 9.2 mg/dl (8.4-10.2); Carbon Dioxide 23 mmol/L (22.0-30.0); Cholesterol 212 mg/dl (140-200); Estimated Glomerular Filt Rate 67 ml/min (>60); GFR (African American) 81 ML/MIN (>60); Glucose 88 mg/dl (74-100); Total Protein,Serum 6.8 g/dl (6.3-8.2); Triglycerides 196 mg/dl (30-150); VLDL Cholesterol 39 mg/dL (0-40)
[2024-04-13 17:17] LABS: Chol/HDL Ratio 8.5 (1-3.5); HDL Cholesterol 25 mg/dl (40-60); Magnesium 1.7 mg/dl (1.6-2.3)
[2024-04-13 17:33] LABS: Direct LDL Cholesterol 138.38 mg/dL (100-129)
[2024-04-13 18:25] LABS: Free T4 (Free Thyroxine) 0.91 ng/dl (0.78-2.19)
[2024-04-13 18:40] LABS: Thyroid Stimulating Hormone 1.89 uIU/mL (0.465-4.68)
== END 2024-04-13 23:59 | disposition home or self-care (01) ==
LOC: LAB 15:51
PROVIDERS: Visit Provider Nurse Practitioner Family
DX: I47.10 Supraventricular tachycardia, unspecified (principal); I50.20 Unspecified systolic (congestive) heart failure; R42 Dizziness and giddiness; K21.9 Gastro-esophageal reflux disease without esophagitis; J43.8 Other emphysema; I73.9 Peripheral vascular disease, unspecified; E78.2 Mixed hyperlipidemia; I10 Essential (primary) hypertension; I25.118 Atherosclerotic heart disease of native coronary artery with other forms of angina pectoris
CPT/HCPCS: 36415; 80048; 80061; 80076; 83735; 84439; 84443; 85025

== ENCOUNTER 2024-12-29 02:03 | Observation (INO) | payer MEDICARE, OTHER, SELFPAY ==
[2024-12-29] VITALS (21 sets, daily range): BP systolic 101–136; BP diastolic 51–82; PULSE 59–90; RESP 14–21; TEMP 36.4–36.8; O2SAT 91–98; BMI 33.9; BMI 33.7
--- OUTSIDE RECORDS SUMMARY | 2024-12-29 02:07 | XMS_ITS | Data Portability ---
Author Organization [place] - [facility] Address [address] [place] [address] Assessment No assessment recorded. Plan of Treatment Reminders Order Date Submit Date Provider Last Modified By Organization Details Last Modified Time Details Appointments None recorded. Lab None recorded. Referral None recorded. Procedures None recorded. Surgeries None recorded. Imaging LDCT, chest, for lung cancer screening [address] (Centralized Scheduling), [address], [place], [address], 4 08:36:20 LDCT, chest, for lung cancer screening [address] (Centralized Scheduling), [address], [place], [address], 4 11:40:48 Medication Orders doxycycline hyclate 100 mg capsule 2024 [address], [address], 5 14:16:19 Medrol (Dewey) 4 mg tablets in a dose pack 2024 [address], [address], 5 14:16:19 Lactobacill us acidophilus 1 billion cell tablet 2024 025 jdickerso n42 [facility], [address] [place] [address], [address], 5 14:16:19 albuterol sulfate HFA 90 mcg/actuati on aerosol inhaler 2024 [email or web address], [address], 5 14:15:39 ipratropium 0.5 mg-albutero l 3 mg (2.5 mg base)/3 mL nebulizatio n soln 2024 025 [email or web address] n42 [facility], [address] [place] [address], [address], 5 14:15:39 Patient TargetsNo targets recorded. Patient Instructions Encounter Date Encounter Id Patient Instructions Last Modified By Organization Details Last Modified Time 05/13/2023 [id number] LDCT scan o f chest in October 19, 2023 for 1 year follow-up continue Trelegy, albuterol, duo nebs. Tobacco cessation. Return to clinic in 6-7 months. [email or web address] Not available 05/13/2023 12:00:28 11/18/2023 [id number] LDCT scan o f chest in October 19, 2023 for 1 year follow-up, he is late, this was previously ordered continue Trelegy, albuterol, duo nebs. Tobacco cessation. Telephone call in [address] follow up, see him back in 6 months. [email or web address] Not available 11/18/2023 12:36:03 05/06/2024 [id number] LDCT scan o f chest in November 2024 for 1 year follow-up continue albuterol, duo nebs. Tobacco cessation. He is off Trelegy as this caused dizziness. Return to clinic in 3 months. 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 Tobacco cessation. He is off Trelegy as this caused dizziness. Add Medrol Dosepak for COPD exacerbation and acute bronchitis along with probiotic 1 p.o. daily for 10 days, doxycycline 100 mg p.o. b.i.d. for 7 days. If he does not improve or worsens he was instructed to go to ER immediately, also follow-up with primary care provider referral to another sleep provider as he realizes I am retiring next week. He voiced understanding of all the above. [email or web address] Not available 07/27/2024 14:15:02 Reason for Referral None Reported. Results Created Date Observation Date Name Description Value Unit Range Abnormal Flag Note LastModifiedBy Organization Detail LastModifiedTime 10/19/1910/18/2022 LDCT, chest , [facility] Name: EDVANG RIVERA [facility]aiser Phys: Leroy maki MD, [place] [address] : 1955 Age: 67 Sex: M Acct: [id number] Loc: G.CT PHONE #: [phone] Exam Date: 2022 Status : REG CLI FAX #: Rad# [id number] Unit# [id number] Admit Date: 2022 EXAMS: CPT CODE: [id number] CT CHEST LDCT LUNG SCREEN G0297 CLINIC AL INFORM ATION: Asympt omatic yahaira nicole with a histor y of tobacc o use and a writte n order from a clinic herb obtain ed during a lung cancer screen ing radha sousa and amanda llamas on-anisa ing visit. 100 year pack histor y tobacc o use. Curren t smoker . TECHNI QUE: Low-do se protoc ol CT ( LDCT ) images of the chest are obtain ed withou t intrav enous contra st, from the lung apices throug h the lung bases, for lung cancer screen ing. Automa irving exposu re contro l was employ ed for dose reduct ion. Patien t Height : 69 inches Patien t Weight : 223 pounds CTDI Vol.: 2.1 mGy DLP: 71.87 mGy*cm COMPAR SALUD: 09/29/21 and older studie s dating back to [address] studie s/nucl ear cardia c studie s, in the last 12 months . FINDIN GS: Interv al placem ent of a transv enous pacema ker on the left which preven irving the patien t from raisin g the left arm out. Medias tinum/ gerardo: No gross abnorm alitie s of the aorta and great vessel s. No grossl y pathol ogic lympha denopa thy. Heart: No gross abnorm ality. Upper abdome n and skelet on: No gross abnorm alitie s. Lungs: Modera te emphys manolo. Stable 9 mm pleura l-base d opacit y medial aspect of the left upper lobe. Stable 6 mm left major fissur e nodule image 130. No new nodule s IMPRES YO: Study detail limite d by non-co ntrast low dose techni que. 1. Modera te emphys manolo with stable nodula rity as before . *Recom mend follow -up LDCT in 12 months . LRAD1 - NEGATI VE LR1YR - ANNUAL SCREEN ING IN 12 MONTHS Commun icatio n: Per this writte n report . NOTE: Any incide ntally noted liver lesion s equal to or less than 5 PAGE 1 Signed Report (GER NUED) [facility] Medica l Ce Name: DEVANG RIVERA Y [address] Phys: Leroy [place]aki MD, [place] [address] : 1955 Age: 67 Sex: M Acct: [id number] Loc: Marti.CT PHONE #: Exam Date: 2022 Status : REG CLI FAX #: Rad# [id number] Unit# [id number] Admit Date: 2022 EXAMS: CPT CODE: [id number] CT CHEST LDCT LUNG SCREEN G0297 mm, cystic lesion s in the kidney s less than 1 cm, and/or adrena l lesion s equal to or less than 1 cm, genera lly are consid ered highly likely to be benign and no additi onal evalua tion is recomm ended, unless specif ically This report is genera irving using voice recogn ition comput er softwa re. Inadve rtent errors may have occurr ed while dictat ing report . Common sense approa ch is apprec iated and do not hesita te to call for clarif icatio n when necess therese. Electr onical ly Signed by Vinicio Pulido on 2022 at 1604 Report ed and signed by: DAVID Pulido M.D. CC: Mireille Morrison MD; Ajith maki M.D. Dictat ed Date/T nash: 2022 (1604) Techno logist : NYASIA MARTE Transc ribed Date/T nash: 2022 (1604) Transc riptio nist: DR.HAR SMITH Electr onic Signat ure Date/T nash: 2022 (1604) Printe d Date/T nash: 2022 (1624) BATCH NO: N/A PAGE 2 Signed Report CC'ed Logic: Orderi ng Provid er: LEROY BUENROSTRO Y Attend ing Provid er: LEROY PAINTERRE Y Referr ing Provid er: LEROY PAINTERRE Y Consul ting Provid er: RUPALI HERNANDEZ [address] , [place], [address], 11/06/2022 16:22:32 10/25/19 23 10/22/2022 XR, elbow No observ ation record ed. [facility] [address], [place], [address], 10/24/2022 08:39:26 11/08/19 23 10/18/2022 LDCT, chest , for lung cance r gorge lo No observ ation record ed. [address] (Centralized Scheduling) [address] [place] [address] [place], [address], 11/07/2022 17:15:41 05/13/19 24 10/18/2022 LDCT, chest , for lung cance r gorge lo No observ ation record ed. [address] (Centralized Scheduling) [address] [place] [address] [place], [address], 05/13/2023 15:27:54 11/28/19 24 11/28/2023 LDCT, chest , for lung cance r adane wally [facility] Medica l Name: DEVANG RIVERA [facility] [employer] [facility] [address] Phys: Leroy maki MD, [place] [address] : 1955 Age: 68 Sex: M Acct: [id number] Loc: G.CT PHONE #: Exam Date: 2023 Status : REG CLI FAX #: Rad# [id number] Unit# [id number] Admit Date: 2023 EXAMS: CPT CODE: [id number] CT CHEST LDCT LUNG SCREEN G0297 CLINIC AL INFORM ATION: Asympt omatic patien t patien t with a histor y of tobacc o use and a writte n order from a clinic herb obtain ed during a lung cancer screen ing counse ling and care decisi on-anisa ing visit. 79.5 pack year histor y tobacc o use. Curren t smoker . TECHNI QUE: Low-do se protoc ol CT ( LDCT ) images of the chest are obtain ed withou t intrav enous contra st, from the lung apices throug h the lung bases, for lung cancer screen ing. Automa irving exposu re contro l was employ ed for dose reduct ion. Patien t Height : 69 inches Patien t Weight : 236 pounds CTDI Vol.: 4.02 mGy DLP: 153.5 mGy*cm COMPAR SALUD: 023 and older studie s dating back over 2 years FINDIN GS: Low neck and axilla : No signif icant abnorm alitie s. Heart/ Aorta/ Medias tinum: Stable calcif ied and noncal cified medias tinal/ hilar lympha denopa thy. Pacer wires noted in the heart. Heart size within normal limits . Dense multiv essel plummer ry artery calcif icatio n noted as well as plummer ry artery stenti ng. Upper abdome n and skelet on: No gross abnorm alitie s. Lungs: Modera te centri lobula r and parase ptal emphys manolo. There are multip le stable noncal cified nodule s scatte red in the bilate ral lungs. Most notabl y are in an ellipt ical bronch ovascu lar opacit y left upper lobe image 100, pleura l-base d opacit y medial ly in the left upper lobe just anteri or to the major fissur e, image 139, and a pleura l-base d opacit y anteri or medial ly within the left upper lobe image 155. No new or enlarg ing nodule s. Mucoid debris in the trache obronc hial tree. Otherw ise the centra l airway s are patent . IMPRES YO: Study detail limite d by non-co ntrast low dose techni que. 1. Emphys manolo as before with stable pulmon therese nodula rity. 2. Dense plummer ry artery calcif icatio n. Presen ce of plummer ry artery calcif icatio n is statis ticall y associ ated with increa sed risk of cardio vascul ar events . *Recom mend follow -up LDCT in 12 months . PAGE 1 Signed Report (GER NUED) [facility] Name: DEVANG RIVERA Y [address] Phys: Leroy [place]aki MD, [place] [address] : 1955 Age: 68 Sex: M Acct: [id number] Loc: G.CT PHONE #: [phone] Exam Date: 2023 Status : REG CLI FAX #: Rad# [id number] Unit# [id number] Admit Date: 2023 EXAMS: CPT CODE: [id number] CT CHEST LDCT LUNG SCREEN G0297 LRAD2 - BENIGN APPEAR ANCE OR BEHAVI OR LR1YR - ANNUAL SCREEN ING IN 12 MONTHS Commun icatio n: Per this writte n report . NOTE: Any incide ntally noted liver lesion s equal to or less than 5 mm, cystic lesion s in the kidney s less than 1 cm, and/or adrena l lesion s equal to or less than 1 cm, genera lly are consid ered highly likely to be benign and no additi onal evalua tion is recomm ended, unless specif ically This report is genera irving using voice recogn ition comput er softwa re. Inadve rtent errors may have occurr ed while dictat ing report . Common sense approa ch is apprec iated and do not hesita te to call for clarif icatio n when necess therese. Electr onical ly Signed by Vinicio Pulido on 2023 at 1547 Report ed and signed by: DAVID Pulido M.D. CC: Mireille Morrison MD; Ajith maki M.D. Dictat ed Date/T nash: 2023 (1547) Techno logist : JONATHAN Velasquez Transc ribed Date/T nash: 2023 (1547) Transc riptio nist: DR.HAR LUIS Sommer onic Signat ure Date/T nash: 2023 (1547) Printe d Date/T nash: 2023 (1549) BATCH NO: N/A PAGE 2 Signed Report CC'ed Logic: Orderi ng Provid er: LEROY BUENROSTRO Y Attend ing Provid er: LEROY PAINTERRE Y Referr ing Provid er: LEROY PAINTERRE Y Consul ting Provid er: RUPALI HERNANDEZ [address] , [place], [address], 12/03/2023 08:36:20 Result Notes Documentation Provider Name and Address Organization Details Recorded Time Ldct, Chest, For Lung Cancer Screening : [facility] Ce Name: ADRIANNA BOWER [facility] [employer] Phys: [place] [address] : 1955 Age: 68 Sex: M Acct: [id number] Loc: G.CT PHONE #: Exam Date: 11/28/2023 Status: REG CLI FAX #: Rad# [id number] Unit# [id number] Admit Date: 11/28/2023 EXAMS: CPT CODE: [id number] CT CHEST LDCT LUNG SCREEN G0297 CLINICAL INFORMATION: Asymptomatic patient patient with a history of tobacco use and a written order from a clinician obtained during a lung cancer screening counseling and care decision-making visit. 79.5 pack year history tobacco use. Current smoker. TECHNIQUE: Low-dose protocol CT ( LDCT ) images of the chest are obtained without intravenous contrast, from the lung apices through the lung bases, for lung cancer screening. Automated exposure control was employed for dose reduction. Patient Height: 69 inches Patient Weight: 236 pounds CTDI Vol.: 4.02 mGy DLP: 153.5 mGy*cm COMPARISON: 10/18/2022 and older studies dating back over 2 years FINDINGS: Low neck and axilla: No significant abnormalities. Heart/Aorta/Mediastinum: Stable calcified and noncalcified mediastinal/hilar lymphadenopathy. Pacer wires noted in the heart. Heart size within normal limits. Dense multivessel coronary artery calcification noted as well as coronary artery stenting. Upper abdomen and skeleton: No gross abnormalities. Lungs: Moderate centrilobular and paraseptal emphysema. There are multiple stable noncalcified nodules scattered in the bilateral lungs. Most notably are in an elliptical bronchovascular opacity left upper lobe image 100, pleural-based opacity medially in the left upper lobe just anterior to the major fissure, image 139, and a pleural-based opacity anterior medially within the left upper lobe image 155. No new or enlarging nodules. Mucoid debris in the tracheobronchial tree. Otherwise the central airways are patent. IMPRESSION: Study detail limited by non-contrast low dose technique. 1. Emphysema as before with stable pulmonary nodularity. 2. Dense coronary artery calcification. Presence of coronary artery calcification is statistically associated with increased risk of cardiovascular events. *Recommend follow-up LDCT in 12 months. PAGE 1 Signed Report (CONTINUED) [facility] Ce Name: ADRIANNA BOWER [facility] Phys: Kb MISTRY, [place] [id number] : 1955 Age: 68 Sex: M Acct: [id number] Loc: Marti.CT PHONE #: Exam Date: 11/28/2023 Status: REG CLI FAX #: Rad# [id number] Unit# [id number] Admit Date: 11/28/2023 EXAMS: CPT CODE: [id number] CT CHEST LDCT LUNG SCREEN G0297 LRAD2 - BENIGN APPEARANCE OR BEHAVIOR LR1YR - ANNUAL SCREENING IN 12 MONTHS Communication: Per this written report. NOTE: Any incidentally noted liver lesions equal to or less than 5 mm, cystic lesions in the kidneys less than 1 cm, and/or adrenal lesions equal to or less than 1 cm, generally are considered highly likely to be benign and no additional evaluation is recommended, unless specifically This report is generated using voice recognition computer software. Inadvertent errors may have occurred while dictating report. Common sense approach is appreciated and do not hesitate to call for clarification when necessary. at 1547 Reported and signed by: TY ARTHUR M.D. CC: Russell Morrison MD; Pete Tolbert M.D. Dictated Date/Time: 11/28/2023 (1547) Technologist: JONATHAN CERVANTES Transcribed Date/Time: 11/28/2023 (154) Ruby On Rails Developer: Electronic Signature Date/Time: 11/28/2023 (1547) Printed Date/Time: 11/28/2023 (1549) BATCH NO: N/A PAGE 2 Signed Report CC'ed Logic: Ordering Provider: KB SHERMAN Attending Provider: KB SHERMAN Referring Provider: KB SHERMAN Consulting Provider: RUPALI HERNANDEZ Georgia burton, TREVOR Geronimo LPNT [facility] [place] 12/03/2023 08:36:20 Problems Name Problem SNOMED Code Status Onset Date Resolution Date Notes Provider Name and Address Organization Details Recorded Time Multiple nodules of lung 584288649 Active 2021 Crystal Santi burton, TREVOR - LPNT [facility] [place] 2 13:49:04 Chronic obstructive pulmonary disease 99043506 Active 2022 Sean Tolbert MD [address] [place] [address],[address]ryanna te [address] [place] [address], [address], TREVOR Geronimo LPNT [facility] [place] 3 22:27:57 Pulmonary emphysema 81751487 Active 2022 Sean Tolbert MD [address] [place] [address],[address], [place], [address], TREVOR - OPALNT - [place] [facility] [place] 3 22:28:03 Acute exacerbation of chronic obstructive pulmonary disease 186828050 Active 2024 Georgia burton, TREVOR - LPNT [facility] [place] 5 14:14:21 Problem Notes None recorded. Procedures Surgical History Date Name Laterality Status Provider Name and Address Organization Details Recorded Time Arthroscopy, shoulder, surgi completed [place] Geronimo LPNT [facility] [place] 04/11/2022 10:08:59 complete repair of rotator cuff [facility] TREVOR Geronimo LPNT [facility] [place] 04/11/2022 10:09:39 cardiac pacemaker procedure [facility] TREVOR Geronimo LPNT [facility] [place] 05/13/2023 11:51:27 Imaging Results None recorded. Procedure Notes None recorded. Medical Equipment None Reported. Allergies No known drug allergies Medications Name Sig Start Date Stop Date Status Note LastModified by Organization Details LastModified Time prednisone 10 mg tablet TAKE ONE TABLET BY MOUTH EVERY DAY FOR 5 DAYS 10/24 completed Not Available Not Available Not Available doxycycline hyclate 100 mg capsule TAKE ONE (1) CAPSULE TWICE A DAY BY ORAL ROUTE DIRECTED FOR 7 DAYS. active Not Available Not Available No t Available ipratropium 0.5 mg-albutero l 3 mg (2.5 mg base)/3 mL nebulizatio n soln INHALE THREE (3) ML EVERY FOUR (4) HOURS BY NEBULIZAT ION ROUTE NEEDED FOR 30 DAYS. active Not Available Not Available No t Available clindamycin HCl 300 mg capsule TAKE ONE (1) CAPSULE TWICE A DAY BY ORAL ROUTE FOR 10 DAYS. 05/10 completed Not Available Not Available Not Available albuterol sulfate 2.5 mg/3 mL (0.083 %) solution for nebulizatio n INHALE THREE (3) ML BY MOUTH EVERY 4-6 HOURS NEEDED FOR 30 DAYS 07/27 completed Not Available Not Available Not Available azithromyci n 250 mg tablet TAKE 2 TABLETS TODAY THEN TAKE 1 TABLET DAILY FOR THE NEXT 4 DAYS BY MOUTH 05/06 completed Not Available Not Available Not Available metoprolol succinate ER 50 mg tablet,exte nded release 24 hr TAKE ONE (1) TABLET EVERY DAY BY ORAL ROUTE FOR 90 DAYS. active Not Available Not Available No t Available prednisone 20 mg tablet TAKE ONE (1) TABLET EVERY DAY BY ORAL ROUTE FOR FIVE (5) DAYS. 05/06 completed Not Available Not Available Not Available metoprolol succinate ER 100 mg tablet,exte nded release 24 hr TAKE 1 TABLET BY MOUTH EVERY NIGHT AT BEDTIME active Not Available Not Available No t Available amlodipine 5 mg tablet TAKE 1 TABLET BY MOUTH EVERY DAY 11/17 completed Not Available Not Available Not Available bisoprolol fumarate 10 mg tablet TAKE ONE (1) TABLET EVERY DAY BY ORAL ROUTE. 11/16 completed Not Available Not Available Not Available isosorbide mononitrate ER 120 mg tablet,exte nded release 24 hr TAKE 1 TABLET BY MOUTH DAILY active Not Available Not Available No t Available isosorbide mononitrate ER 60 mg tablet,exte nded release 24 hr TAKE 1 TABLET BY MOUTH EVERY DAY active Not Available Not Available No t Available oxycodone-a cetaminophe n 10 mg-325 mg tablet TAKE ONE (1) TABLET ORALLY TWICE A DAY NEEDED FOR PAIN 10/24 completed Not Available Not Available Not Available amlodipine 10 mg tablet TAKE 1 TABLET BY MOUTH DAILY active Not Available Not Available No t Available nitroglycer in 0.4 mg sublingual tablet DISSOLVE ONE (1) TABLET UNDER TONGUE EVERY FIVE (5) MINUTES FOR THREE (3) DOSES NEEDED FOR CHEST PAIN-NO RELIEF CALL 911 active Not Available Not Available No t Available betamethaso ne dipropionat e 0.05 % topical cream APPLY A THIN LAYER TO THE AFFECTED AREA(S) BY TOPICAL ROUTE ONCE DAILY active Not Available Not Available No t Available hydrochloro thiazide 25 mg tablet TAKE ONE (1) TABLET BY MOUTH EVERY DAY active Not Available Not Available No t Available furosemide 20 mg tablet Take 1 tablet every day by oral route. active Not Available Not Available No t Available methylpredn isolone 4 mg tablets in a dose pack FOLLOW PACKAGE DIRECTION S active Not Available Not Available No t Available albuterol sulfate HFA 90 mcg/actuati on aerosol inhaler INHALE TWO (2) PUFFS EVERY FOUR (4) HOURS BY INHALATIO N ROUTE NEEDED. active Not Available Not Available No t Available amoxicillin 875 mg-potassiu m clavulanate 125 mg tablet TAKE ONE (1) TABLET EVERY 12 HOURS BY ORAL ROUTE FOR 10 DAYS. active Not Available Not Available No t Available olmesartan 40 mg tablet TAKE ONE (1) TABLET EVERY DAY BY ORAL ROUTE. active Not Available Not Available No t Available ezetimibe 10 mg tablet TAKE ONE (1) TABLET EVERY DAY BY ORAL ROUTE FOR 30 DAYS. active Not Available Not Available No t Available rosuvastati n 20 mg tablet Take 1 tablet every day by oral route. 05/10 completed Not Available Not Available Not Available rosuvastati n 40 mg tablet TAKE 1 TABLET BY MOUTH EVERY DAY 05/10 completed Not Available Not Available Not Available bupropion HCl XL 150 mg 24 hr tablet, extended release TAKE ONE (1) TABLET BY MOUTH EVERY DAY active Not Available Not Available No t Available Lactobacill us acidophilus 1 billion cell tablet Take 1 tablet every day by oral route as directed for 10 days. 2024 active Not Available Not Available Not Avai lable sildenafil (pulmonary hypertensio n) 20 mg tablet TAKE ONE TABLET BY MOUTH THREE TIMES DAILY. Administe r doses AT least 4-6 hours APART 05/10 completed Not Available Not Available Not Available ranolazine ER 500 mg tablet,exte nded release,12 hr TAKE ONE (1) TABLET BY MOUTH TWICE DAILY active Not Available Not Available No t Available ranolazine ER 1,000 mg tablet,exte nded release,12 hr TAKE ONE (1) TABLET BY MOUTH TWICE DAILY active Not Available Not Available No t Available prasugrel HCl 10 mg tablet TAKE ONE (1) TABLET EVERY DAY BY ORAL ROUTE FOR 90 DAYS. active Not Available Not Available No t Available Lactobacill us acidoph-L.b ulgaricus 1 million cell tablet TAKE ONE (1) TABLET EVERY DAY BY ORAL ROUTE DIRECTED FOR 10 DAYS. active Not Available Not Available No t Available ipratropium 0.5 mg-albutero l 2.5 mg/2.5 mL solution for nebulizatio n Inhale 3 mL every 4 hours by inhalatio n route as needed. 05/10 completed Not Available Not Available Not Available Farxiga 10 mg tablet TAKE ONE (1) TABLET EVERY DAY BY ORAL ROUTE. active Not Available Not Available No t Available Trelegy Ellipta 100 mcg-62.5 mcg-25 mcg powder for inhalation INHALE ONE PUFFS BY MOUTH EVERY DAY 07/27 completed Not Available Not Available Not Available Vitals Date Recorded Heart rate Provider Name an d Address Organization Details Last Updated DateTime 05/06/2024 64 /min Sean pulido MD [address] [facility],[address], [place], [address], [employer] [facility] [place] 05/06/2024 12:41:32 Date Recorded Body height Body mass index (BMI) Body weight Oxygen saturation Oxygen saturation in Arterial blood by Pulse oximetry Respiratory rate Systolic And Diastolic Provider Name and Address Organization Details Last Updated DateTime 5 175.26 cm 34.3 kg/m2 301595. 87 g 98 % 98 % 14 /min 130/74 mm[Hg] [place] [employer] Juanpablo HARJEET [facility] [place] 5 12:23:26 Date Recorded Body height Body mass index (BMI) Body weight Oxygen saturation Oxygen saturation in Arterial blood by Pulse oximetry Heart rate Respiratory rate Systolic And Diastolic Provider Name and Address Organization Details Last Updated DateTime 4 175.26 cm 34.9 kg/m2 920827. 8 g 98 % 98 % 64 /min 14 /min 138/78 mm[Hg] [place] Antoineroverto [employer] - [facility] & [place] 4 11:48:51 Date Recorded Heart rate Body temperature Provider N tarsha and Address Organization Details Last Updated DateTime 07/27/2024 67 /min 97.7 [degF] Sean Tolbert MD [address] [place] [address],[address], [place], [address], [facility] [place] 07/27/2024 14:13:08 Date Recorded Body height Body mass index (BMI) Body weight Oxygen saturation Oxygen saturation in Arterial blood by Pulse oximetry Respiratory rate Systolic And Diastolic Provider Name and Address Organization Details Last Updated DateTime 5 175.26 cm 34.4 kg/m2 151805. 02 g 96 % 96 % 12 /min 122/68 mm[Hg] Georgia MURRAY - LPNT [facility] [place] 5 14:10:31 Date Recorded Body height Body temperature Heart rate Respiratory rate Systolic And Diastolic Provider Name and Address Organization Details Last Updated DateTime 3 175.26 cm 97 [degF] 70 /min 18 /min 132/80 mm[Hg] My MURRAY - LPNT [facility] [place] 3 09:38:13 Date Recorded Oxygen saturation Oxygen saturation in Arterial blood by Pulse oximetry Provider Name and Address Organization Details Last Updated DateTime 11/18/2023 97 % 97 % Sean Tolbert MD [address] [place] [address],[address], [place], [address], [facility] [place] 11/18/2023 12:34:10 Date Recorded Body height Body mass index (BMI) Body weight Heart rate Respiratory rate Systolic And Diastolic Provider Name and Address Organization Details Last Updated DateTime 4 175.26 cm 34.8 kg/m2 850522. 36 g 65 /min 12 /min 136/74 mm[Hg] Georgia MURRAY - LPNT [facility] [place] 4 12:24:11 Social History Question Answer Notes LastModified by Organizat ion Details LastModified Time Tobacco Smoking Status Current Every Day Smoker Current 1-2 PPD hx for 50 years Georgia Antoineroverto burton TREVOR - LPNT [facility] [place] 05/13/2023 11:51:08 Do You Have An Advance Directive? Yes Information not available 11/18/2023 Are You Blind Or Do You Have Difficulty Seeing? Yes Information not available 11/18/2023 What Was The Date Of Your Most Recent Tobacco Screening? 11/18/2023 Information not available 11/18/2023 What Is Your Current Pack Years? 30ormorepac kyears API-13 Information not available 05/13/2023 Are You Passively Exposed To Smoke? No Information not available 11/18/2023 How Much Tobacco Do You Smoke? 1 PPD Smoking 1 03/26 PPD Information not available 05/06/2024 How Many Years Have You Smoked Tobacco? 50 Information not available 11/18/2023 Sex: Male Functional Status Question Answer Note LastModified by Organizat ion Details LastModified Time Do you use any illicit or recreational drugs? No Information not available 11/18/2023 What is your level of alcohol consumption? None Information not available 11/18/2023 What is your exercise level? Moderate Information not available 11/18/2023 Mental Status Question Answer Note LastModified by Organization D etails LastModified Time Do you feel stressed (tense, restless, nervous, or anxious, or unable to sleep at night)? [id number] Information not available 11/18/2023 Family History Relationship Description Onset Age of this Age Resolved Age Notes LastModified by Organization Details LastModified Time Father Cerebrovascu lar accident Not available 0 04/11/2022 10:07:55 Medical History Condition Response Other Y Congestive Heart Failure (CHF) Y Heart Attack (FL) Y Heart Disease Y Hypertension Y COPD Y Past Encounters Encounter ID Performer Location Encounter Start Date Encounter Closed Date Diagnosis/Indication Diagnosis SNOMED-CT Code Diagnosis ICD10 Code Diagnosis IMO Codes Diagnosis Note [id number] MD [facility] [address] [place] [address] 04/11/2022 09:51:15 04/11/2022 10:09:56 Chronic obstructive pulmonary disease 62420928 J44.9 Pulmonary emphysema 8743 3001 J43.9 [id number] CHICO MTZ DO [facility] [address] [place], [place] [address] 10/24/2022 09:31:07 10/24/2022 10:09:13 Contusion of right elbow [id number] S50.01XA [id number] DO [facility] [address] [place], [place] [id number] 11/07/2022 09:13:52 11/07/2022 09:52:35 Strain of tendon of triceps brachii 137489888 S46.311D [id number] MD [facility] [address] [place] [address] DR [address] [place] [phone] 05/13/2023 11:42:31 05/13/2023 12:01:17 Chronic obstructive pulmonary disease 06283529 J44.9 Pulmonary emphysema 8743 3001 J43.9 [id number] MD [facility] [address] [place] [address] DR [address] [place] [phone] 11/18/2023 12:18:55 11/18/2023 12:37:22 Chronic obstructive pulmonary disease 45965908 J44.9 Pulmonary emphysema 8743 3001 J43.9 [id number] MD [facility] [address] [place] [address] DR [address] [place] [phone] 05/06/2024 12:15:04 05/06/2024 12:41:55 Chronic obstructive pulmonary disease 37228783 J44.9 Pulmonary emphysema 8743 3001 J43.9 [id number] MD [facility] [address] [place] [address] [address] [place] [id number] 07/27/2024 13:56:22 07/27/2024 14:09:47 Chronic obstructive pulmonary disease 62222492 J44.9 Pulmonary emphysema 8743 3001 J43.9 Acute exac erbation of chronic obstructive pulmonary disease 263566629 J44.1 [id number] Health Concerns Section Related Observation LastModified by Organization Detai ls LastModified Time None Recorded Concern Status LastModified by Organization Details LastModified Time None Recorded Advance Directives Directive Y: Payers Insurance Date Sequence Insurance Name Policy Number Policy Castro Covered Member ID Castro Member ID Guarantor Name 07/24/2024 1 [facility] (MEDICAID REPLACEMENT - HMO) [id number] Adrianna D Olman [id number] Adrianna D Olman 11/18/2023 1 [place]/A DVANTAGE - HMO) Adrianna D Olman [id number] Adrianna D Olman 05/06/2024 1 [employer] - CHOICECARE (PPO) Adrianna D Olman [id number] Adrianna D Olman 11/18/2023 1 [place]MEDICARE REPLACEMENT REGIONAL PPO) Adrianna D Olman [id number] Adrianna D Olman 11/18/2023 1 [facility] (MEDICAID REPLACEMENT - HMO) [id number] Adrianna D Olman [id number] Adrianna D Olman 11/18/2023 1 MEDICAID-[facility] - FFS/TRADITION AL Adrianna D Olman [id number] Adrianna D Olman 11/18/2023 1 [id number] Adrianna D Olman [id number] Adrianna D Olman 07/27/2024 [employer] (MEDICARE REPLACEMENT/A DVANTAGE - PPO) Adrianna D Olman [id number] Adrianna D Olman 11/18/2023 1 [employer] (PPO) Adrianna D Olman [id number] Adrianna D Olman Notes Date Note Type Note Provider Name and Address Organization Details Recorded Time 3 text/html ROS as noted in the HPI Pt is here for f/u of his rt elbow. He reports the swelling is better and the pain. He reports he is 80% better-E4SF CHICO MTZ DO [address] [place] [address],[address], [place], [address], [facility] 11/07/2022 10:10:02 4 text/html 68-year-old male with history of COPD and tobacco abuse. Medications in the past have included duo nebs, albuterol, Trelegy. Patient also with a history of ejection fraction 45%. He is still smoking 1.5 packs a day. He does not appear to be interested in quitting smoking presently. Patient was instructed to follow-up with primary care provider for prescription of generic Chantix when he is ready to quit smoking, he voiced understanding. I have not seen him since March 2022, as he missed his follow-up appointments, noncompliant. He is status post pacemaker and AICD placement per his history.Patient denies fever, chills, night sweats, hemoptysis, pleurisy, dyspnea, chest pain, chest pressure, orthopnea, PND, syncope, palpitations, cough, productive sputum or dizziness.The patient does not get sleepy, drowsy or fall asleep while driving, patient warned no driving motorized vehicles or operating machinery while fatigued, sleepy or drowsy, he voiced understanding.Modified Wells criteria of 0. [place] of 1.He voices no cardiopulmonary complaints, no GI complaints, no neurologic complaints today.Quality and context of sputum is clear, thin, mucousy and rare. Dyspnea, timing with exertion, and is mild in severity, and relieved with rest.He voices no sleep-related issues.He denies fatigue, hypersomnia, sleep attacks, sleep hallucinations, sleep paralysis, cataplexy or RLS.CT SCAN CHEST DONE OCTOBER 18, 2022 BELOW:COMPARISON: 09/29/21 and older studies dating back to prior CT studies/nuclear cardiac studies, in the last 12 months.FINDINGS: Interval placement of a transvenous pacemaker on the left which prevented the patientfrom raising the left arm out.Mediastinum/gerardo: No gross abnormalities of the aorta and great vessels. No grossly pathologiclymphadenopathy .Heart: No gross abnormality.Upper abdomen and skeleton: No gross abnormalities.Lungs: Moderate emphysema. Stable 9 mm pleural-based opacity medial aspect of the left upperlobe. Stable 6 mm left major fissure nodule image 130. No new nodulesIMPRESSION: Study detail limited by non-contrast low dose technique.1. Moderate emphysema with stable nodularity as before.*Recommend follow-up LDCT in 12 months.LRAD1 - [id number] - ANNUAL SCREENING IN 12 MONTHSCommunication: Per this written report.NOTE: Any incidentally noted liver lesions equal to or less than 5 mm, cystic lesions in the kidneysless than 1 cm, and/or adrenal lesions equal to or less than 1 cm, generally are considered highlylikely to be benign and no additional evaluation is recommended, unless specificallyThis report is generated using voice recognition computer software. Inadvertent errors may haveoccurred while dictating report. Common sense approach is appreciated and do not hesitate to callfor clarification when necessary.Transcribed Date: 10/18/2022 4:04 PMTranscribed By: Ty ArthurReported by: Ty ArthurSigned by: Ty ArthurDateSigned:10/19/19 4:[address] chest done October 19, 2021 as below:COMPARISON: 09/17/19 and 12/12/16FINDINGS: Imaging of the low neck and the axilla is grossly unremarkable. There are scatteredmediastinal nodes several of which are borderline enlarged as before. No new or enlarging nodes.Heart size borderline enlarged. Extensive coronary artery calcification and stenting as before. Mildatheromatous disease of the aorta and great vessels.Moderate upper lobe predominant centrilobular and paraseptal emphysema. Granulomatous diseaseis again noted. No new nodules. There are stable nodules again noted, including: Right upper lobeimage 136, left upper lobe abutting the medial pleura image 149, and involving the left major fissureon image 130. No infiltrate or effusionLimited imaging upper abdomen shows relatively profound hepatic steatosis.IMPRESSION: Study detail limited by non-contrast low dose technique.1. Moderate emphysema as before with stable noncalcified pulmonary nodularity. No acute disease2. Borderline cardiac enlargement with extensive coronary artery calcification. Coronary arterycalcifications are statistically associated with increased risk of cardiovascular event.*Recommend follow-up LDCT in 12 months.LRAD2 - BENIGN APPEARANCE OR [id number] - ANNUAL SCREENING IN 12 MONTHSNOTE: Recommendations for follow up/management of incidental pulmonary nodules will be basedon the Fleischner Society criteria.Any incidentally noted liver lesions equal to or less than 5 mm, cystic lesions in the kidneys lessthan 1 cm,and/or adrenal lesions equal to or less than 1 cm, generally are considered highly likely to be benignand no additionalevaluation is recommended, unless specifically mentioned in the impression.Transcribed Date: 10/19/2021 5:57 PMTranscribed By: yT ArthurReported by: Ty ArthurSigned by: Ty ArthurDateSigned:10/20/19 5:57 PMPatient was instructed to follow-up with primary care provider and/or mill washer for extensive coronary artery calcifications and borderline cardiac enlargement. Coronary artery calcifications may be associated with an increased risk of cardiovascular events, ill health, sickness, and , patient voiced understanding and stated he would follow-up with primary care provider and/or mill washer [facility] regarding these issues. He sees Dr Gómez.This note was completed using a dictation system. We do our best to minimize mistakes by this dictation system, but some dictation system mistakes cannot be identified. If something does not make sense and/ or appears in error please do not hesitate to contact our office. We can correct the record and/ or clarify for you.The patient was warned no driving motorized vehicles or operating heavy machinery while fatigued, sleepy or drowsy, the patient voiced understanding and he stated he would not.Patient was instructed to read the side effect package profile very carefully on all medications prescribed, and to stop medications immediately and go to ER if the patient has any problems, the patient voiced understanding. Patient was instructed to go over side effects /adverse effects / drug interactions with all of the prescribed and [id number] medications with a pharmacist, he voiced understanding. The patient was instructed to go to ER if the patient does not improve or worsens, he again voiced understanding.Patient was warned if the patient does not follow up with the CT scan of chest as recommended, and follow-up with results of CT scan chest with me, this may result in future ill health, sickness, and even , he again voiced understanding. Sean Tolbert MD [address] [facility],[address], [place], [address], [place] [facility] [place] [facility] [place] 05/13/2023 12:00:47 4 text/html 68-year-old male with history of COPD and tobacco abuse.He has not had his LDCT scan of his chest yet.Medications in the past have included duo nebs, albuterol, Trelegy.Patient also with a history of ejection fraction 45%.He is still smoking 1.5 packs a day. He again does not appear to be interested in quitting smoking presently. Patient was instructed to follow-up with primary care provider for prescription of generic Chantix when he is ready to quit smoking, he voiced understanding. I had not seen him since March 2022, as he missed his follow-up appointments, noncompliant previously.He is status post pacemaker and AICD placement per his history.He denies fever, chills, night sweats, hemoptysis, pleurisy, dyspnea, chest pain, chest pressure, orthopnea, PND, syncope, palpitations, cough, productive sputum or dizziness.The patient does not get sleepy, drowsy or fall asleep while driving, patient warned no driving motorized vehicles or operating machinery while fatigued, sleepy or drowsy, he voiced understanding.Modified Wells criteria of 0. [place] of 2.He again voices no cardiopulmonary complaints, no GI complaints, no neurologic complaints today.Quality and context of sputum is clear, thin, mucousy and rare. Dyspnea, timing with exertion, and is mild in severity, and relieved with rest.He voices no sleep-related issues. I offered a home sleep study, PFTs and alpha 1 antitrypsin level, he declines. He states he wakes up feeling rested and refreshed and has no problems sleeping and denies fatigue or hypersomnia.He denies fatigue, hypersomnia, sleep attacks, sleep hallucinations, sleep paralysis, cataplexy or RLS. CT SCAN CHEST DONE OCTOBER 18, 2022 BELOW:COMPARISON: 09/29/21 and older studies dating back to prior CT studies/nuclear cardiac studies, in the last 12 months.FINDINGS: Interval placement of a transvenous pacemaker on the left which prevented the patientfrom raising the left arm out.Mediastinum/gerardo: No gross abnormalities of the aorta and great vessels. No grossly pathologiclymphadenopathy .Heart: No gross abnormality.Upper abdomen and skeleton: No gross abnormalities.Lungs: Moderate emphysema. Stable 9 mm pleural-based opacity medial aspect of the left upperlobe. Stable 6 mm left major fissure nodule image 130. No new nodulesIMPRESSION: Study detail limited by non-contrast low dose technique.1. Moderate emphysema with stable nodularity as before.*Recommend follow-up LDCT in 12 months.LRAD1 - [id number] - ANNUAL SCREENING IN 12 MONTHSCommunication: Per this written report.NOTE: Any incidentally noted liver lesions equal to or less than 5 mm, cystic lesions in the kidneysless than 1 cm, and/or adrenal lesions equal to or less than 1 cm, generally are considered highlylikely to be benign and no additional evaluation is recommended, unless specificallyThis report is generated using voice recognition computer software. Inadvertent errors may haveoccurred while dictating report. Common sense approach is appreciated and do not hesitate to callfor clarification when necessary.Transcribed Date: 10/18/2022 4:04 PMTranscribed By: Ty ArthurReported by: Ty ArthurSigned by: Ty ArthurDateSigned:10/19/19 4:[address] chest done October 19, 2021 as below:COMPARISON: 09/17/19 and 12/12/16FINDINGS: Imaging of the low neck and the axilla is grossly unremarkable. There are scatteredmediastinal nodes several of which are borderline enlarged as before. No new or enlarging nodes.Heart size borderline enlarged. Extensive coronary artery calcification and stenting as before. Mildatheromatous disease of the aorta and great vessels.Moderate upper lobe predominant centrilobular and paraseptal emphysema. Granulomatous diseaseis again noted. No new nodules. There are stable nodules again noted, including: Right upper lobeimage 136, left upper lobe abutting the medial pleura image 149, and involving the left major fissureon image 130. No infiltrate or effusionLimited imaging upper abdomen shows relatively profound hepatic steatosis.IMPRESSION: Study detail limited by non-contrast low dose technique.1. Moderate emphysema as before with stable noncalcified pulmonary nodularity. No acute disease2. Borderline cardiac enlargement with extensive coronary artery calcification. Coronary arterycalcifications are statistically associated with increased risk of cardiovascular event.*Recommend follow-up LDCT in 12 months.LRAD2 - BENIGN APPEARANCE OR [id number] - ANNUAL SCREENING IN 12 MONTHSNOTE: Recommendations for follow up/management of incidental pulmonary nodules will be basedon the Fleischner Society criteria.Any incidentally noted liver lesions equal to or less than 5 mm, cystic lesions in the kidneys lessthan 1 cm,and/or adrenal lesions equal to or less than 1 cm, generally are considered highly likely to be benignand no additionalevaluation is recommended, unless specifically mentioned in the impression.Transcribed Date: 10/19/2021 5:57 PMTranscribed By: Ty ArthurReported by: Ty ArthurSigned by: Ty ArthurDateSigned:10/20/19 5:57 PM Patient was again instructed to follow-up with primary care provider and/or mill washer for extensive coronary artery calcifications and borderline cardiac enlargement. Coronary artery calcifications may be associated with an increased risk of cardiovascular events, ill health, sickness, and , patient voiced understanding and stated he would follow-up with primary care provider and/or mill washer immediately regarding these issues. He sees Dr Gómez.This note was completed using a dictation system. We do our best to minimize mistakes by this dictation system, but some dictation system mistakes cannot be identified. If something does not make sense and/ or appears in error please do not hesitate to contact our office. We can correct the record and/ or clarify for you.I again went over most recent CT scan of chest in detail with the patient, I answered all of the patient's questions, the patient voiced understanding and had no further questions.The patient again declines any further pulmonary/thoracic diagnostic procedures at the present time for abnormalities noted on most recent CT scan of chest.The patient was warned no driving motorized vehicles or operating heavy machinery while fatigued, sleepy or drowsy, the patient voiced understanding and he stated he would not.Patient was instructed to read the side effect package profile very carefully on all medications prescribed, and to stop medications immediately and go to ER if the patient has any problems, the patient voiced understanding. Patient was instructed to go over side effects /adverse effects / drug interactions with all of the prescribed and [id number] medications with a pharmacist, he voiced understanding. The patient was instructed to go to ER if the patient does not improve or worsens, he again voiced understanding.Patient was again warned if the patient does not follow up with the CT scan of chest as recommended, and follow-up with results of CT scan chest with me, this may result in future ill health, sickness, and even , he again voiced understanding. Sean Tolbert MD [address], [place], [address], [place] [facility] [place] [facility] [place] 11/18/2023 12:39:44 5 text/html 69-year-old male with history of COPD and tobacco abuse.Medications in the past have included duo nebs, albuterol, Trelegy.He thinks Trelegy cause dizziness and he stopped. Did complain of cough productive of sputum and wheeze, resolved with prednisone and doxycycline as ordered per his primary care provider. He states he feels like he is back to his baseline pulmonary status. Using his nebulizers 3 times a day. His chest x-ray at [facility] done May 05, 2024: As per radiologist hyperinflation without evidence of acute cardiopulmonary disease.Patient also with a history of ejection fraction 45%.He is still smoking 1.0 pack a day. He does not appear to be interested in quitting smoking presently. Patient was instructed to follow-up with primary care provider for prescription of generic Chantix when he is ready to quit smoking, he voiced understanding.He is status post pacemaker and AICD placement per his history.He denies fever, chills, night sweats, hemoptysis, pleurisy, dyspnea, chest pain, chest pressure, orthopnea, PND, syncope, palpitations, cough, productive sputum or dizziness.He does not get sleepy, drowsy or fall asleep while driving, patient warned no driving motorized vehicles or operating machinery while fatigued, sleepy or drowsy, he voiced understanding. He voices no sleep-related issues. I again today offered a home sleep study, PFTs and alpha 1 antitrypsin level, he again declines. He states he wakes up feeling rested and refreshed and has no problems sleeping and denies fatigue, EDS or hypersomnia. He denies fatigue, hypersomnia, sleep attacks, sleep hallucinations, sleep paralysis, cataplexy or RLS.Dyspnea, timing with exertion, and is mild in severity, and relieved with rest. He voices no other cardiopulmonary complaints, no GI complaints, no neurologic complaints today. Quality and context of sputum is clear, thin, mucousy and rare.He voices no sleep-related issues.Modified Wells criteria of 0. [place] of 0.He voices no other cardiopulmonary complaints, no GI complaints, no neurologic complaints today. He has lost some weight with diet modification he states.Dyspnea, timing with exertion, and is mild in severity, and relieved with rest. He voices no other cardiopulmonary complaints, no GI complaints, no neurologic complaints today. Quality and context of sputum is clear, thin, mucousy and rare.He voices no sleep-related issues. CT SCAN CHEST 2023 BELOW:COMPARISON: 10/18/2022 and older studies dating back over 2 yearsFINDINGS: Low neck and axilla: No significant abnormalities.Heart/Aorta /Mediastinum: Stable calcified and noncalcified mediastinal/hilar lymphadenopathy.Pacer wires noted in the heart. Heart size within normal limits. Dense multivessel coronary arterycalcification noted as well as coronary artery stenting.Upper abdomen and skeleton: No gross abnormalities.Lungs: Moderate centrilobular and paraseptal emphysema. There are multiple stable noncalcifiednodules scattered in the bilateral lungs. Most notably are in an elliptical bronchovascular opacityleft upper lobe image 100, pleural-based opacity medially in the left upper lobe just anterior to themajor fissure, image 139, and a pleural-based opacity anterior medially within the left upper lobeimage 155. No new or enlarging nodules. Mucoid debris in the tracheobronchial tree. Otherwise thecentral airways are patent.IMPRESSION: Study detail limited by non-contrast low dose technique.1. Emphysema as before with stable pulmonary nodularity.2. Dense coronary artery calcification. Presence of coronary artery calcification is statisticallyAccession: [id number] Name: ADRIANNA BOWER Account #:associated with increased risk of cardiovascular events.*Recommend follow-up LDCT in 12 months.LRAD2 - BENIGN APPEARANCE OR [id number] - ANNUAL SCREENING IN 12 MONTHSCommunication: Per this written report.NOTE: Any incidentally noted liver lesions equal to or less than 5 mm, cystic lesions in the kidneysless than 1 cm, and/or adrenal lesions equal to or less than 1 cm, generally are considered highlylikely to be benign and no additional evaluation is recommended, unless specificallyThis report is generated using voice recognition computer software. Inadvertent errors may haveoccurred while dictating report. Common sense approach is appreciated and do not hesitate to callfor clarification when necessary.Transcribed Date: 11/28/2023 3:47 PMTranscribed By: Ty ArthurReported by: Arianna Arthured by: Ty ArthurDateSigned: 4 3:[address] SCAN CHEST DONE OCTOBER 18, 2022 BELOW:COMPARISON: 09/29/21 and older studies dating back to prior CT studies/nuclear cardiac studies, in the last 12 months.FINDINGS: Interval placement of a transvenous pacemaker on the left which prevented the patientfrom raising the left arm out.Mediastinum/gerardo: No gross abnormalities of the aorta and great vessels. No grossly pathologiclymphadenopathy .Heart: No gross abnormality.Upper abdomen and skeleton: No gross abnormalities.Lungs: Moderate emphysema. Stable 9 mm pleural-based opacity medial aspect of the left upperlobe. Stable 6 mm left major fissure nodule image 130. No new nodulesIMPRESSION: Study detail limited by non-contrast low dose technique.1. Moderate emphysema with stable nodularity as before.*Recommend follow-up LDCT in 12 months.LRAD1 - [id number] - ANNUAL SCREENING IN 12 MONTHSCommunication: Per this written report.NOTE: Any incidentally noted liver lesions equal to or less than 5 mm, cystic lesions in the kidneysless than 1 cm, and/or adrenal lesions equal to or less than 1 cm, generally are considered highlylikely to be benign and no additional evaluation is recommended, unless specificallyThis report is generated using voice recognition computer software. Inadvertent errors may haveoccurred while dictating report. Common sense approach is appreciated and do not hesitate to callfor clarification when necessary.Transcribed Date: 10/18/2022 4:04 PMTranscribed By: Ty ArthurRepsofyaed by: Ray Arthur by: Anamika Arthurigned:10/19/19 23 4:[address] chest done October 19, 2021 as below:COMPARISON: 09/17/19 and 12/12/16FINDINGS: Imaging of the low neck and the axilla is grossly unremarkable. There are scatteredmediastinal nodes several of which are borderline enlarged as before. No new or enlarging nodes.Heart size borderline enlarged. Extensive coronary artery calcification and stenting as before. Mildatheromatous disease of the aorta and great vessels.Moderate upper lobe predominant centrilobular and paraseptal emphysema. Granulomatous diseaseis again noted. No new nodules. There are stable nodules again noted, including: Right upper lobeimage 136, left upper lobe abutting the medial pleura image 149, and involving the left major fissureon image 130. No infiltrate or effusionLimited imaging upper abdomen shows relatively profound hepatic steatosis.IMPRESSION: Study detail limited by non-contrast low dose technique.1. Moderate emphysema as before with stable noncalcified pulmonary nodularity. No acute disease2. Borderline cardiac enlargement with extensive coronary artery calcification. Coronary arterycalcifications are statistically associated with increased risk of cardiovascular event.*Recommend follow-up LDCT in 12 months.LRAD2 - BENIGN APPEARANCE OR [id number] - ANNUAL SCREENING IN 12 MONTHSNOTE: Recommendations for follow up/management of incidental pulmonary nodules will be basedon the Fleischner Society criteria.Any incidentally noted liver lesions equal to or less than 5 mm, cystic lesions in the kidneys lessthan 1 cm,and/or adrenal lesions equal to or less than 1 cm, generally are considered highly likely to be benignand no additionalevaluation is recommended, unless specifically mentioned in the impression.Transcribed Date: 10/19/2021 5:57 PMTranscribed By: Ty ArthurReported by: Ty ArthurSigned by: Ty ArthurDateSigned:10/20/19 5:57 PM Patient was again instructed to follow-up with primary care provider and/or mill washer for dense coronary artery calcifications and borderline cardiac enlargement. Dense coronary artery calcifications may be associated with an increased risk of cardiovascular events, immediate ill health, sickness, and , patient voiced understanding and stated he would follow-up with primary care provider and/or mill washer immediately regarding these issues. He sees Dr Gómez.This note was completed using a dictation system. We do our best to minimize mistakes by this dictation system, but some dictation system mistakes cannot be identified. If something does not make sense and/ or appears in error please do not hesitate to contact our office. We can correct the record and/ or clarify for you.I again went over most recent CT scan of chest in detail with the patient from November 2023, I answered all of the patient's questions, he voiced understanding and he had no further questions.The patient again declines any further pulmonary/thoracic diagnostic procedures at the present time for abnormalities noted on most recent CT scan of chest , however he is in agreement repeat CT scan chest in 1 year or November 2024. The patient declines bronchoscopy, CT lung biopsy, and/or surgical biopsy/ resection of abnormalities noted on most recent CT scan of chest, however he is in agreement to a repeat CT scan chest in 1 year or November 2024. The patient was warned no driving motorized vehicles or operating heavy machinery while fatigued, sleepy or drowsy, he voiced understanding and he stated he would not.Patient was instructed to read the side effect package profile very carefully on all medications prescribed, and to stop medications immediately and go to ER if the patient has any problems, the patient voiced understanding. Patient was instructed to go over side effects /adverse effects / drug interactions with all of the prescribed and [id number] medications with a pharmacist, he voiced understanding. The patient was instructed to go to ER if the patient does not improve or worsens, he again voiced understanding.Patient was again warned if the patient does not follow up with the CT scan of chest as recommended, and follow-up with results of CT scan chest with me or PCP, this may result in future ill health, sickness, and even , he again voiced understanding.I told the patient I will be retiring July 2024, the patient voiced understanding.The patient was instructed to follow-up with their primary care provider and/or a promotion producer/sleep physician for all their future pulmonary needs/ issues/meds and all of their sleep needs/issues/meds, the patient voiced understanding. The patient was also instructed to follow-up with their primary care provider and/ or a promotion producer for all recommended future CT scans of the chest, the patient voiced understanding. I told the patient their lack of follow-up with recommended future CT scans of chest could result in future ill health, sickness, , the patient again voiced understanding.He voiced understanding of all the above. Sean Tolbert MD [address] [facility],[address], [place], [id number], [facility] & [place] 05/06/2024 12:42:58 5 text/html 69-year-old male with history of COPD and tobacco abuse. Complains of yellowish sputum production with cough and wheeze present and is worse at night over the last week. Temperature is 97.7 .Medications in the past have included duo nebs, albuterol, Trelegy.He thinks Trelegy cause dizziness and he stopped this and is not on this. Using his nebulizers 3 times a day. His chest x-ray at [facility] done May 05, 2024: As per radiologist hyperinflation without evidence of acute cardiopulmonary disease. Patient also with a history of ejection fraction 45%.He is still smoking 1.25 pack a day. He does not appear to be interested in quitting smoking presently. Patient was instructed to follow-up with primary care provider for prescription of generic Chantix when he is ready to quit smoking, he voiced understanding.He is status post pacemaker and AICD placement per his history.He again denies fever, chills, night sweats, hemoptysis, pleurisy, dyspnea, chest pain, chest pressure, orthopnea, PND, syncope, palpitations, or dizziness.He does not get sleepy, drowsy or fall asleep while driving, patient warned no driving motorized vehicles or operating machinery while fatigued, sleepy or drowsy, he again voiced understanding. He voices no sleep-related issues. I again offered a home sleep study, PFTs and alpha 1 antitrypsin level, he again declines. He states he wakes up feeling rested and refreshed and has no problems sleeping and denies fatigue, EDS or hypersomnia. He denies fatigue, hypersomnia, EDS, sleep attacks, sleep hallucinations, sleep paralysis, cataplexy or RLS.Dyspnea, timing with exertion, and is mild in severity, and relieved with rest and stable. He voices no other cardiopulmonary complaints, no GI complaints, no neurologic complaints today.He voices no sleep-related issues.Modified Wells criteria of 0. [place] of 1.He voices no other cardiopulmonary complaints, no GI complaints, no neurologic complaints today. He has lost some weight with diet modification he states.Dyspnea, timing with exertion, and is mild in severity, and relieved with rest. He voices no other cardiopulmonary complaints, no GI complaints, no neurologic complaints today.He voices no sleep-related issues. CT SCAN CHEST 2023 BELOW:COMPARISON: 10/18/2022 and older studies dating back over 2 yearsFINDINGS: Low neck and axilla: No significant abnormalities.Heart/Aorta /Mediastinum: Stable calcified and noncalcified mediastinal/hilar lymphadenopathy.Pacer wires noted in the heart. Heart size within normal limits. Dense multivessel coronary arterycalcification noted as well as coronary artery stenting.Upper abdomen and skeleton: No gross abnormalities.Lungs: Moderate centrilobular and paraseptal emphysema. There are multiple stable noncalcifiednodules scattered in the bilateral lungs. Most notably are in an elliptical bronchovascular opacityleft upper lobe image 100, pleural-based opacity medially in the left upper lobe just anterior to themajor fissure, image 139, and a pleural-based opacity anterior medially within the left upper lobeimage 155. No new or enlarging nodules. Mucoid debris in the tracheobronchial tree. Otherwise thecentral airways are patent.IMPRESSION: Study detail limited by non-contrast low dose technique.1. Emphysema as before with stable pulmonary nodularity.2. Dense coronary artery calcification. Presence of coronary artery calcification is statisticallyAccession: [id number] Name: ADRIANNA BOWER Account #:associated with increased risk of cardiovascular events.*Recommend follow-up LDCT in 12 months.LRAD2 - BENIGN APPEARANCE OR [id number] - ANNUAL SCREENING IN 12 MONTHSCommunication: Per this written report.NOTE: Any incidentally noted liver lesions equal to or less than 5 mm, cystic lesions in the kidneysless than 1 cm, and/or adrenal lesions equal to or less than 1 cm, generally are considered highlylikely to be benign and no additional evaluation is recommended, unless specificallyThis report is generated using voice recognition computer software. Inadvertent errors may haveoccurred while dictating report. Common sense approach is appreciated and do not hesitate to callfor clarification when necessary.Transcribed Date: 11/28/2023 3:47 PMTranscribed By: Ty ArthurReported by: Ty ArthurSigned by: Ty ArthurDateSigned:9/5/202 4 3:[address] SCAN CHEST DONE OCTOBER 18, 2022 BELOW:COMPARISON: 09/29/21 and older studies dating back to prior CT studies/nuclear cardiac studies, in the last 12 months.FINDINGS: Interval placement of a transvenous pacemaker on the left which prevented the patientfrom raising the left arm out.Mediastinum/gerardo: No gross abnormalities of the aorta and great vessels. No grossly pathologiclymphadenopathy .Heart: No gross abnormality.Upper abdomen and skeleton: No gross abnormalities.Lungs: Moderate emphysema. Stable 9 mm pleural-based opacity medial aspect of the left upperlobe. Stable 6 mm left major fissure nodule image 130. No new nodulesIMPRESSION: Study detail limited by non-contrast low dose technique.1. Moderate emphysema with stable nodularity as before.*Recommend follow-up LDCT in 12 months.LRAD1 - [id number] - ANNUAL SCREENING IN 12 MONTHSCommunication: Per this written report.NOTE: Any incidentally noted liver lesions equal to or less than 5 mm, cystic lesions in the kidneysless than 1 cm, and/or adrenal lesions equal to or less than 1 cm, generally are considered highlylikely to be benign and no additional evaluation is recommended, unless specificallyThis report is generated using voice recognition computer software. Inadvertent errors may haveoccurred while dictating report. Common sense approach is appreciated and do not hesitate to callfor clarification when necessary.Transcribed Date: 10/18/2022 4:04 PMTranscribed By: Ty ArthurReported by: Ty ArthurSigned by: Ty ArthurDateSigned:10/19/19 23 4:[address] chest done October 19, 2021 as below:COMPARISON: 09/17/19 and 12/12/16FINDINGS: Imaging of the low neck and the axilla is grossly unremarkable. There are scatteredmediastinal nodes several of which are borderline enlarged as before. No new or enlarging nodes.Heart size borderline enlarged. Extensive coronary artery calcification and stenting as before. Mildatheromatous disease of the aorta and great vessels.Moderate upper lobe predominant centrilobular and paraseptal emphysema. Granulomatous diseaseis again noted. No new nodules. There are stable nodules again noted, including: Right upper lobeimage 136, left upper lobe abutting the medial pleura image 149, and involving the left major fissureon image 130. No infiltrate or effusionLimited imaging upper abdomen shows relatively profound hepatic steatosis.IMPRESSION: Study detail limited by non-contrast low dose technique.1. Moderate emphysema as before with stable noncalcified pulmonary nodularity. No acute disease2. Borderline cardiac enlargement with extensive coronary artery calcification. Coronary arterycalcifications are statistically associated with increased risk of cardiovascular event.*Recommend follow-up LDCT in 12 months.LRAD2 - BENIGN APPEARANCE OR [id number] - ANNUAL SCREENING IN 12 MONTHSNOTE: Recommendations for follow up/management of incidental pulmonary nodules will be basedon the Fleischner Society criteria.Any incidentally noted liver lesions equal to or less than 5 mm, cystic lesions in the kidneys lessthan 1 cm,and/or adrenal lesions equal to or less than 1 cm, generally are considered highly likely to be benignand no additionalevaluation is recommended, unless specifically mentioned in the impression.Transcribed Date: 10/19/2021 5:57 PMTranscribed By: Ty ArthurReported by: Ty ArthurSigned by: Ty ArthurDateSigned:10/20/19 5:57 PM Patient was again instructed to follow-up with primary care provider and/or mill washer for dense coronary artery calcifications and borderline cardiac enlargement. Dense coronary artery calcifications may be associated with an increased risk of cardiovascular events, immediate ill health, sickness, and , patient voiced understanding and stated he would follow-up with primary care provider and/or mill washer immediately regarding these issues. He sees Dr Gómez.This note was completed using a dictation system. We do our best to minimize mistakes by this dictation system, but some dictation system mistakes cannot be identified. If something does not make sense and/ or appears in error please do not hesitate to contact our office. We can correct the record and/ or clarify for you.I again went over most recent CT scan of chest in detail with the patient from November 2023, I answered all of the patient's questions, he voiced understanding and he had no further questions.The patient again declines any further pulmonary/thoracic diagnostic procedures at the present time for abnormalities noted on most recent CT scan of chest , however he is in agreement repeat CT scan chest in 1 year or November 2024. The patient declines bronchoscopy, CT lung biopsy, and/or surgical biopsy/ resection of abnormalities noted on most recent CT scan of chest, however he is in agreement to a repeat CT scan chest in 1 year or November 2024. The patient was warned no driving motorized vehicles or operating heavy machinery while fatigued, sleepy or drowsy, he voiced understanding and he stated he would not.Side effects of steroids/ antibiotics/inhalers/nebu lizers were explained to the patient and include but not limited: , high blood pressure, anaphylaxis, headache, seizures, swelling, high blood sugars, muscle weakness, dizziness, fatigue, cataract formation, [place], CVA, life-threatening arrhythmia, osteoporosis, slow wound healing, increased risks of all infections with sepsis and , blurry vision with glaucoma and blindness, heartburn, depression, mood changes, aggressive behavior, psychosis, harshal, suicide ideations with actions and , rash, C difficile colitis with overwhelming infection, sepsis, , and with lifelong sickness and , also increased risks of yeast infection with sickness and , also nausea, vomiting, abdominal pain, diarrhea, shortness for breath , osteonecrosis of the hip with hip replacement etc., the patient voiced understanding and he is in agreement with doxycycline, Medrol, inhaler and nebulizers.He states he has had doxycycline and steroids before without any problems/ side effects/ allergy/adverse effects. Patient was instructed to read the side effect package profile very carefully on all medications prescribed, and to stop medications immediately and go to ER if the patient has any problems, the patient voiced understanding. Patient was instructed to go over side effects /adverse effects / drug interactions with all of the prescribed and [id number] medications with a pharmacist, he voiced understanding. The patient was instructed to go to ER immediately if he does not to improve or worsens, he again voiced understanding.Patient was again warned if the patient does not follow up with the CT scan of chest as recommended, and follow-up with results of CT scan chest with another promotion producer or PCP, this may result in future ill health, sickness, and even , he again voiced understanding.I told the patient I will be retiring July 2024, the patient voiced understanding.The patient was instructed to follow-up with their primary care provider and/or a promotion producer/sleep physician for all their future pulmonary needs/ issues/meds and all of their sleep needs/issues/meds, the patient voiced understanding. The patient was also instructed to follow-up with their primary care provider and/ or a promotion producer for all recommended future CT scans of the chest, the patient voiced understanding. I told the patient their lack of follow-up with recommended future CT scans of chest could result in future ill health, sickness, , the patient again voiced understanding.He voiced understanding of all the above. He states he will discuss with his primary care provider referral to another sleep/pulmonary provider. Sean Tolbert MD [address] [place] [address],[address], [place], [id number], [place] - [facility] - [place] & [place] 07/27/2024 14:18:06
--- OUTSIDE RECORDS SUMMARY | 2024-12-29 02:07 | XMS_ITS | Data Portability ---
Author Organization [facility] Address [address] [place] [address] Assessment Encounter Date Assessment Date Assessment LastModified by Organization Details LastModified Time 10/29/2024 10/29/2024 Patient presente d to office today for their Medicare Annual Wellness Visit. Education was provided on healthy nutrition, including a diet rich in fruits and vegetables, minimizing simple carbohydrates, salt, and saturated fats. Encouraged regular cardiovascular exercise such as walking at least 30 minutes daily, 5 times per week. Emphasized preventive health measures and educated pt on fall prevention and community-based lifestyle interventions to help reduce health risks and promote healthy living. Medicare Preventive Services Check List reviewed and printed for patient. Not available 10/29/2024 07:12:52 Plan of Treatment Reminders Order Date Submit Date Provider Last Modified By Organization Details Last Modified Time Details Appointments Establis hed Patient 20 2025 08:20A M Marycruz Winkler PA-C Not available Not available Not available Lab CMP, serum or plasma 2024 025 [facility], [address], [address], [place], [address], 10/30/2024 08:23:48 lipid panel, serum 2024 025 [facility], [address], [address], [place], [address], 10/30/2024 08:23:48 microalb umin/cre atinine, mass ratio, urine 2024 025 [facility], [address] [facility], [place], [address], 10/29/2024 08:42:14 CBC w/ auto diff 2024 025 INGE [facility], [address], [address], [place], [address], 10/30/2024 08:23:47 HbA1c (hemoglo bin A1c), blood 2024 025 INGE [facility], [address], [address], [place], [address], 10/30/2024 08:23:49 PSA, serum or plasma 2024 025 [facility], [address], [address], [place], [address], 10/30/2024 08:23:49 CBC w/ auto diff 2024 025 [facility], [address], [address], [place], [address], 07/07/2024 09:00:36 urinalys is, dipstick 2024 025 [facility], [address] [facility], [place], [address], 06/29/2024 11:28:40 CBC w/ auto diff 2024 025 [facility], [address], [address], [place], [address], 06/30/2024 09:34:36 CMP, serum or plasma 2024 025 [facility], [address], [address], [place], [address], 06/30/2024 09:34:37 amylase + lipase, serum 2024 025 [facility], [address], [address], [place], [address], 06/30/2024 09:34:38 noninvas karla colorect al cancer DNA + occult blood screenin g, QL, stool 2024 025 F[facility]FURRIAS [facility], [address], [address], [place], [address], 06/12/2024 09:52:17 HbA1c (hemoglo bin A1c), blood 2024 025 [facility], [address], [address], [place], [address], 05/06/2024 08:22:25 CMP, serum or plasma 2024 025 [facility], [address], [address], [place], [address], 05/06/2024 08:22:24 lipid panel, serum 2024 025 [facility], [address], [address], [place], [address], 05/06/2024 08:22:25 microalb umin/cre atinine, mass ratio, urine 2024 025 [facility], [address] [facility], [place], [address], 05/05/2024 09:12:06 CBC w/ auto diff 2024 025 [facility], [address], [address], [place], [address], 05/06/2024 08:22:24 Referral cardiolo gist referral 2024 025 [facility], [address], [place], [address], 11/03/2024 09:00:22 cardiolo gist referral 2024 025 FALFURRIAS Sharif Gómez MD, [address], [place], [address], 08/04/2024 12:50:34 Procedures diabetic foot screen (PROC) 2024 025 [email or web address] Not available 11/05/2024 07:33:14 Surgeries None recorded . Imaging XR, chest, 2 view 2024 025 [facility], [address] [place] [address] DrKian, [place], [address], 05/05/2024 15:49:13 Medication Orders nitrogly cerin 0.4 mg sublingu al tablet 2024 025 [facility], [address] [place] [address], [place], [address], 07/06/2024 09:05:49 amoxicil juan m 875 mg-potas sium clavulan ate 125 mg tablet 2024 025 [facility], [address] [place] [address], [place], [address], 07/06/2024 16:13:42 dexameth asone sodium phosphat e 4 mg/mL injectio n solution 2024 025 [email or web address] Not available 06/29/2024 10:38:19 Patient Targets Encounter Date Encounter Id Patient Goals Patient Target Last Modified By Organization Details Last Modified Time 05/05/2024 [id number] psa drawn 11/15 normal. Not available 05/05/2024 07:45:54 Patient Instructions Encounter Date Encounter Id Patient Instructions Last Modified By Organization Details Last Modified Time 04/30/2024 [id number] CALL W CHANGES RTC OR ED IF SYMPTOMS CHANGE OR WORSEN KEEP NEXT INTERVAL CHECKUP CONT CHRONIC MEDS PERSCRIBED CHRONIC ISSUES ARE STABLE DISCUSSED NATURAL AND EXPECTED COURSE OF THIS DIAGNOSIS AND NEED TO ALERT ME IF SYMPTOMS DO NOT FOLLOW EXPECTED COURSE, OR IF ANY WORSEN FINISH MEDS. KEEP APPT NEXT WEEK WITH PULM. [email or web address] Not available 04/30/2024 11:44:48 05/05/2024 [id number] smoking cessatio n counseling, greater than 3 minutes up to 10 minutes* [email or web address] Not available 05/12/2024 07:40:42 cough: care instructions Not available 05/05/2024 08:37:05 chronic obstructive pulmonary disease (COPD): care instructions Not available 05/05/2024 08:31:57 learning about copd and how to prevent lung infections Not available 05/05/2024 08:31:57 high cholesterol : care instructions Not available 05/05/2024 08:31:57 learning about healthy weight Not available 05/05/2024 08:31:57 body mass index: care instructions Not available 05/05/2024 08:31:58 type 2 diabetes: care instructions Not available 05/05/2024 08:31:58 bradycardia: car e instructions Not available 05/05/2024 08:31:57 last eye exam-last 6 months last dental exam- pt has false teeth. 30 minutes spent with patient in review, examination, discussion, and coordination of care. CALL WITH CHANGES RTC OR GO TO ED IF SYMPTOMS CHANGE OR WORSEN DISCUSSED IMPORTANCE OF DIET AND EXERCISE ROUTINE HEALTH MAINTANENCE REVIEWED MEDS REVD WITH PATIENT TODAY, SIDE EFFECTS DISCUSSED AND PATIENT VOICES UNDERSTANDING OF THIS CHRONIC ISSUES ARE STABLE CONT CURRENT MEDICATIONS PERSCRIBED Not available 05/05/2024 08:31:56 06/29/2024 [id number] Call with change s RTC or ED if symptoms change or worsen Keep next interval check-up Cont. chronic meds as prescribed Chronic conditions are stable Discussed natural and expected course of this diagnosis and need to alert me if symptoms do not follow expected course or if any worsens [email or web address] Not available 06/29/2024 11:13:57 07/06/2024 [id number] Call with change s RTC or ED if symptoms change or worsen Keep next interval checkup Cont. chronic meds as prescribed Chronic conditions are stable Discussed natural and expected course of this diagnosis and need to alert me if symptoms do not follow expected course or if any worsens [email or web address] Not available 07/06/2024 08:03:27 10/29/2024 [id number] advance directives: care instructions Not available 10/29/2024 08:32:16 chronic obstructive pulmonary disease (COPD): care instructions Not available 10/29/2024 08:32:17 learning about copd and how to prevent lung infections Not available 10/29/2024 08:32:16 learning about depression Not available 10/29/2024 08:32:16 preventing falls : care instructions Not available 10/29/2024 08:32:16 fall prevention education Not available 10/29/2024 08:32:16 high cholesterol : care instructions Not available 10/29/2024 08:32:16 medicare preventive services guide Not available 10/29/2024 08:32:17 type 2 diabetes: care instructions Not available 10/29/2024 08:32:16 prostate cancer screening: care instructions Not available 10/29/2024 08:32:17 prostate-specifi c antigen (PSA) test: about this test Not available 10/29/2024 08:32:17 bradycardia: car e instructions Not available 10/29/2024 08:32:17 last dental exam - pt has false teeth. 30 minutes spent with patient in review, examination, discussion, and coordination of care. CALL WITH CHANGES RTC OR GO TO ED IF SYMPTOMS CHANGE OR WORSEN DISCUSSED IMPORTANCE OF DIET AND EXERCISE ROUTINE HEALTH MAINTANENCE REVIEWED MEDS REVD WITH PATIENT TODAY, SIDE EFFECTS DISCUSSED AND PATIENT VOICES UNDERSTANDING OF THIS CHRONIC ISSUES ARE STABLE CONT CURRENT MEDICATIONS PERSCRIBED Not available 10/29/2024 08:30:56 Reason for Referral Supervisor Hard Candy Referral for Co ronary arteriosclerosis Referring Physician: Maryc[facility], Encounter Date: 07/06/2024 Supervisor Hard Candy Referral for He art disease Referring Physician: Marycruz Winkler [facility], Encounter Date: 10/29/2024 Results Created Date Observation Date Name Description Value Unit Range Abnormal Flag Note LastModifiedBy Organization Detail LastModifiedTime 05/05/19 25 05/06/2024 CBC WITH DIFFE RENTI AL/PL ATELE T WBC 9.0 x10e3 /uL 3.4-10 .8 normal Not Available [facility] ([facility]) [address] [facility], [place], [address], 05/06/2024 08:22:24 05/05/19 25 05/06/2024 CBC WITH DIFFE RENTI AL/PL ATELE T RBC 4.87 x10e6 /uL 4.14-5 .80 normal Not Available [facility] ([facility]) [address] [place], [address], 05/06/2024 08:22:24 05/05/19 25 05/06/2024 CBC WITH DIFFE RENTI AL/PL ATELE T hemoglobin 15.3 g/dL 13.0-1 7.7 normal Not Available [facility] ([facility]) [address] [facility], [place], [address], 05/06/2024 08:22:24 05/05/19 25 05/06/2024 CBC WITH DIFFE RENTI AL/PL ATELE T hematocrit 46.0 % 37.5-5 1.0 normal Not Available [facility] ([facility]) [address] [place], [address], 05/06/2024 08:22:24 05/05/19 25 05/06/2024 CBC WITH DIFFE RENTI AL/PL ATELE T MCV 95 fL 79-97 normal Not Available [facility] ([facility]) [address] [place], [address], 05/06/2024 08:22:24 05/05/19 25 05/06/2024 CBC WITH DIFFE RENTI AL/PL ATELE T MCH 31.4 pg 26.6-3 3.0 normal Not Available [facility] ([facility]) [address] [place], [address], 05/06/2024 08:22:24 05/05/19 25 05/06/2024 CBC WITH DIFFE RENTI AL/PL ATELE T MCHC 33.3 g/dL 31.5-3 5.7 normal Not Available [facility] ([facility]) [address] [facility], [place], [address], 05/06/2024 08:22:24 05/05/19 25 05/06/2024 CBC WITH DIFFE RENTI AL/PL ATELE T RDW 13.1 % 11.6-1 5.4 Not Available [facility] ([facility]) [address] [facility], [place], [address], 05/06/2024 08:22:24 05/05/19 25 05/06/2024 CBC WITH DIFFE RENTI AL/PL ATELE T platelets 301 x10e3 /uL 150-45 0 normal Not Available [facility] ([facility]) [address] [facility], [place], [address], 05/06/2024 08:22:24 05/05/19 25 05/06/2024 CBC WITH DIFFE RENTI AL/PL ATELE T neutrophils 56 % not estab. normal Not Available [facility] ([facility]) [address] [facility], [place], [address], 05/06/2024 08:22:24 05/05/19 25 05/06/2024 CBC WITH DIFFE RENTI AL/PL ATELE T lymphs 33 % not estab. normal Not Available [facility] ([facility]) [address] [facility], [place], [address], 05/06/2024 08:22:24 05/05/19 25 05/06/2024 CBC WITH DIFFE RENTI AL/PL ATELE T monocytes 8 % not estab. normal Not Available [facility] ([facility]) [address] [facility], [place], [address], 05/06/2024 08:22:24 05/05/19 25 05/06/2024 CBC WITH DIFFE RENTI AL/PL ATELE T eos 2 % not estab. normal Not Available [facility] ([facility]) [address] [place], [address], 05/06/2024 08:22:24 05/05/19 25 05/06/2024 CBC WITH DIFFE RENTI AL/PL ATELE T basos 0 % not estab. 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 0 normal Not Available [facility] ([facility]) [address] [place], [address], 05/06/2024 08:22:24 05/05/19 25 05/06/2024 CBC WITH DIFFE RENTI AL/PL ATELE T lymphs (absolute) 3.0 x10e3 /uL 0.7-3. 1 normal Not Available [facility] ([facility]) [address] [place], [address], 05/06/2024 08:22:24 05/05/19 25 05/06/2024 CBC WITH DIFFE RENTI AL/PL ATELE T monocytes(ab solute) 0.8 x10e3 /uL 0.1-0. 9 normal Not Available [facility] ([facility]) [address] [place], [address], 05/06/2024 08:22:24 05/05/19 25 05/06/2024 CBC WITH DIFFE RENTI AL/PL ATELE T eos (absolute) 0.2 x10e3 /uL 0.0-0. 4 normal Not Available [facility] ([facility]) [address] [facility], [place], [address], 05/06/2024 08:22:24 05/05/19 25 05/06/2024 CBC WITH DIFFE RENTI AL/PL ATELE T baso (absolute) 0.0 x10e3 /uL 0.0-0. 2 normal Not Available [facility] ([facility]) [address] [facility], [place], [address], 05/06/2024 08:22:24 05/05/19 25 05/06/2024 CBC WITH DIFFE RENTI AL/PL ATELE T immature granulocytes 1 % not estab. Not Available [facility] ([facility]) [address] [facility], [place], [address], 05/06/2024 08:22:24 05/05/19 25 05/06/2024 CBC WITH DIFFE RENTI AL/PL ATELE T immature grans (abs) 0.1 x10e3 /uL 0.0-0. 1 Not Available [facility] ([facility]) [address] [facility], [place], [address], 05/06/2024 08:22:24 05/05/19 25 05/06/2024 CBC WITH DIFFE RENTI AL/PL ATELE T NRBC WEATHER OBSERVER Not Available [facility] ([facility]) [address] [place], [address], 05/06/2024 08:22:24 05/05/19 25 05/06/2024 CBC WITH DIFFE RENTI AL/PL ATELE T hematology comments: WEATHER OBSERVER Not Available [facility] ([facility]) [address] [place], [address], 05/06/2024 08:22:24 05/05/19 25 05/06/2024 COMP. METAB OLIC PANEL (14) glucose 82 mg/dL 70-99 normal Not Available [facility] ([facility]) [address] [place], [address], 05/06/2024 08:22:24 05/05/19 25 05/06/2024 COMP. METAB OLIC PANEL (14) BUN 35 mg/dL 8-27 above high normal Not Available [facility] ([facility]) [address] [place], [address], 05/06/2024 08:22:24 05/05/19 25 05/06/2024 COMP. METAB OLIC PANEL (14) creatinine 1.64 mg/dL 0.76-1 .27 above high normal Not Available [facility] ([facility]) [address] [place], [address], 05/06/2024 08:22:24 05/05/19 25 05/06/2024 COMP. METAB OLIC PANEL (14) eGFR 46 mL/mi n/1.7 3 >59 below low normal Not Available [facility] ([facility]) [address] [place], [address], 05/06/2024 08:22:24 05/05/19 25 05/06/2024 COMP. METAB OLIC PANEL (14) BUN/creatini ne ratio 21 10-24 normal Not Available [facility] ([facility]) [address] [place], [address], 05/06/2024 08:22:24 05/05/19 25 05/06/2024 COMP. METAB OLIC PANEL (14) sodium 137 mmol/ L 134-14 4 normal Not Available [facility] ([facility]) [address] [place], [address], 05/06/2024 08:22:24 05/05/19 25 05/06/2024 COMP. METAB OLIC PANEL (14) potassium 4.8 mmol/ L 3.5-5. 2 normal Not Available [facility] ([facility]) [address] [place], [id number], 05/06/2024 08:22:24 05/05/19 25 05/06/2024 COMP. METAB OLIC PANEL (14) chloride 101 mmol/ L 96-106 normal Not Available [facility] ([facility]) [address] [place], [id number], 05/06/2024 08:22:24 05/05/19 25 05/06/2024 COMP. METAB OLIC PANEL (14) carbon dioxide, total 22 mmol/ L 20-29 normal Not Available [facility] ([facility]) [address] [place], [id number], 05/06/2024 08:22:24 05/05/19 25 05/06/2024 COMP. METAB OLIC PANEL (14) calcium 9.8 mg/dL 8.6-10 .2 normal Not Available [facility] ([facility]) [address] [place], [id number], 05/06/2024 08:22:24 05/05/19 25 05/06/2024 COMP. METAB OLIC PANEL (14) protein, total 6.9 g/dL 6.0-8. 5 normal Not Available [facility] ([facility]) [address] [place], [id number], 05/06/2024 08:22:24 05/05/19 25 05/06/2024 COMP. METAB OLIC PANEL (14) albumin 4.3 g/dL 3.9-4. 9 normal Not Available [facility] ([facility]) [address] [place], [id number], 05/06/2024 08:22:24 05/05/19 25 05/06/2024 COMP. METAB OLIC PANEL (14) globulin, total 2.6 g/dL 1.5-4. 5 Not Available [facility] ([facility]) [address] [place], [id number], 05/06/2024 08:22:24 05/05/19 25 05/06/2024 COMP. METAB OLIC PANEL (14) bilirubin, total 0.4 mg/dL 0.0-1. 2 normal Not Available [facility] ([facility]) [address] [place], [id number], 05/06/2024 08:22:24 05/05/19 25 05/06/2024 COMP. METAB OLIC PANEL (14) alkaline phosphatase 67 IU/L 44-121 normal Not Available [facility] ([facility]) [address] [place] [place], [id number], 05/06/2024 08:22:24 05/05/19 25 05/06/2024 COMP. METAB OLIC PANEL (14) AST (SGOT) 12 IU/L 0-40 normal Not Available [facility] ([facility]) [address] [facility] [place], [address], 05/06/2024 08:22:24 05/05/19 25 05/06/2024 COMP. METAB OLIC PANEL (14) ALT (SGPT) 16 IU/L 0-44 normal Not Available [facility] ([facility]) [address] [place], [id number], 05/06/2024 08:22:24 05/05/19 25 05/06/2024 LIPID PANEL cholesterol, total 231 mg/dL 100-19 9 above high normal Not Available [facility] ([facility]) [address] [place] [place], [id number], 05/06/2024 08:22:25 05/05/19 25 05/06/2024 LIPID PANEL triglyceride s 231 mg/dL 0-149 above high normal Not Available [facility] ([facility]) [address] [facility] [place], [address], 05/06/2024 08:22:25 05/05/19 25 05/06/2024 LIPID PANEL HDL cholesterol 36 mg/dL >39 below low normal Not Available [facility] ([facility]) [address] [place], [address], 05/06/2024 08:22:25 05/05/19 25 05/06/2024 LIPID PANEL VLDL cholesterol wen 43 mg/dL 5-40 above high normal Not Available [facility] ([facility]) [address] [place], [address], 05/06/2024 08:22:25 05/05/19 25 05/06/2024 LIPID PANEL LDL chol calc ([email or web address] 152 mg/dL 0-99 above high normal Not Available [facility] ([facility]) [address] [facility], [place], [address], 05/06/2024 08:22:25 05/05/19 25 05/06/2024 LIPID PANEL LDL calc comment: 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 6 above high normal Predi abete s: 5.7 - 6.4 Diabe suly: >6.4 Glyce vivi contr ol for adult s with diabe suly: <7.0 Not Available [facility] ([facility]) [address] [facility], [place], [address], 05/06/2024 08:22:25 05/05/19 25 05/05/2024 micro album in/cr eatin ine, mass ratio , urine Microalbumin 30mg Not Available [facility] [address], [place], [address], 05/05/2024 08:31:40 05/05/19 25 05/05/2024 micro album in/cr eatin ine, mass ratio , urine Creatinine 100mg Not Available Aurorarajesh cosme [facility] [address] [facility], [place], [address], 05/05/2024 08:31:40 05/05/19 25 05/05/2024 micro album in/cr eatin ine, mass ratio , urine Ratio <30mg normal Not Available [facility] [address] [facility], [place], [address], 05/05/2024 08:31:40 06/09/19 25 06/08/2024 COLOG UARD cologuard result reportable Negati ve negati ve normal NEGAT KARLA TEST RESUL T. A negat karla Colog uard resul t indic ates a low likel ihood that a color ectal cance r (CRC) or advan kimberlee adeno ma (jazmyne omato us polyp s with more advan kimberlee pre-m align ant featu res) is prese nt. The [facility] e that a perso n with a negat karla Colog uard test has a color ectal cance r is less than 1 in 1500 (nega tive predi ctive value >99.9 %) or has an advan kimberlee adeno ma is less than 5.3% (nega tive predi ctive value 94.7% ). These data are based on a prosp ectiv e cross -sect ional study of 10,00 0 indiv idual s at [facility] for color ectal cance r who were scree alistair with both Colog uard and colon oscop y. (Celeste Bliss et al, N Engl J Med 2014; 370(1 4):12 86-12 97) The jatinder l value (refe rence range ) for this assay is negat karla. COLOG UARD RE-SC REENI NG RECOM MENDA TION: Perio dic color ectal cance r scree wally is an impor tant part of preve ntive healt hcare for asymp tomat ic indiv idual s at [facility] for color ectal cance r. Follo wing a negat karla Colog uard resul t, the Ameri can Cance r Socie ty and U.S. Multi -Soci ety Task Force scree wally guide lines recom mend a Colog uard re-sc levy meza inter gustavo of 3 years . Refer ences : Ameri can Cance r Socie ty Guide line for Color ectal Cance r Scree wally: https ://kiki w.can cer.o rg/ca ncer/ colon -rect al-ca ncer/ detec tion- diagn osis- stagi ng/ac s-rec ommen datio ns.ht ml.; Jarred RUEDA, Myles carlson CR, Linda BedollaK, Color ectal Cance r Scree wally: Recom menda tions for Physi cians and Patie nts from the U.S. Multi -Soci ety Task Force on Color ectal Cance r Scree wally , Yolanda landa y 2017; 112:1 016-1 030. TEST DESCR IPTIO N: [facility] site algor ithmi c ahmet sis of stool DNA-b ioedgard kers with hemog lobin immun oassa y. Quant itati ve value s of indiv idual bioma rkers are not repor table and are not assoc iated with indiv idual bioma rker resul t refer ence range s. Colog uard is inten ded for color ectal cance r scree wally of adult s of eithe r sex, 45 years or older , who are at [facility] for color ectal cance r (CRC) . Colog uard has been appro masha for use by the U.[place]. FDA. The perfo rmanc e of Colog uard was estab lishe d in a cross secti onal study of [facility] adult s aged 50-84 . Colog uard perfo rmanc e in patie nts ages 45 to 49 years was estim ated by echo-sohan silva ahmet sis of near- age group s. Colon oscop ies perfo rmed for a posit karla resul t may find as the most clini sarkis signi fican t lesio n: color ectal cance r [4.0% ], advan kimberlee adeno ma (incl uding sessi le romario irving polyp s great er than or equal to 1cm diame ter) [20%] or non- advan kimberlee adeno ma [31%] ; or no color ectal neopl nader [45%] . These estim ates are deriv ed from a prosp ectiv e cross -sect ional scree wally study of , 0 indiv idual s at [facility] risk for color ectal cance r who were scree alistair with both Colog uard and colon oscop y. (Celeste Bliss et al, N Engl J Med 2014; 370(1 4):12 86-12 97.) Colog uard may produ ce a false negat karla or false posit karla resul t (no color ectal cance r or preca ncero us polyp prese nt at colon oscop y follo w up). A negat karla Colog uard test resul t does not guara ntee the absen ce of CRC or advan kimberlee adeno ma (pre- cance r). The curre nt Colog uard scree wally inter gustavo is every 3 years . (Amer ican Cance r Socie ty and [employer] ). Colog uard perfo rmanc e data in a 0 patie nt pivot al study using colon oscop y as the refer ence metho d can be acces sed at [facility] locat ion: www.e xactl abs.c om/re nazario . Addit ional descr iptio n of the Colog uard test proce ss, warni ngs and preca ution s can be found at www.c ologu christen.c om. Not Available [facility] [address], [place], [address], 06/12/2024 09:52:17 06/30/19 25 06/30/2024 CBC WITH DIFFE RENTI AL/PL ATELE T WBC 11.8 x10e3 /uL 3.4-10 .8 above high normal Not Available [facility] ([facility]) [address], [place], [address], 06/30/2024 09:34:36 06/30/19 25 06/30/2024 CBC WITH DIFFE RENTI AL/PL ATELE T RBC 4.24 x10e6 /uL 4.14-5 .80 normal Not Available [facility] ([facility]) [address] [place], [address], 06/30/2024 09:34:36 06/30/19 25 06/30/2024 CBC WITH DIFFE RENTI AL/PL ATELE T hemoglobin 13.3 g/dL 13.0-1 7.7 normal Not Available [facility] ([facility]) [address] [place], [address], 06/30/2024 09:34:36 06/30/19 25 06/30/2024 CBC WITH DIFFE RENTI AL/PL ATELE T hematocrit 40.0 % 37.5-5 1.0 normal Not Available [facility] ([facility]) [address] [place], [address], 06/30/2024 09:34:36 06/30/19 25 06/30/2024 CBC WITH DIFFE RENTI AL/PL ATELE T MCV 94 fL 79-97 normal Not Available [facility] ([facility]) [address] [place], [address], 06/30/2024 09:34:36 06/30/19 25 06/30/2024 CBC WITH DIFFE RENTI AL/PL ATELE T MCH 31.4 pg 26.6-3 3.0 normal Not Available [facility] ([facility]) [address] [place], [address], 06/30/2024 09:34:36 06/30/19 25 06/30/2024 CBC WITH DIFFE RENTI AL/PL ATELE T MCHC 33.3 g/dL 31.5-3 5.7 normal Not Available [facility] ([facility]) [address] [place], [address], 06/30/2024 09:34:36 06/30/19 25 06/30/2024 CBC WITH DIFFE RENTI AL/PL ATELE T RDW 13.5 % 11.6-1 5.4 Not Available [facility] ([facility]) [address] [facility], [place], [address], 06/30/2024 09:34:36 06/30/19 25 06/30/2024 CBC WITH DIFFE RENTI AL/PL ATELE T platelets 254 x10e3 /uL 150-45 0 normal Not Available [facility] ([facility]) [address] [facility], [place], [address], 06/30/2024 09:34:36 06/30/19 25 06/30/2024 CBC WITH DIFFE RENTI AL/PL ATELE T neutrophils 73 % not estab. normal Not Available [facility] ([facility]) [address] [facility], [place], [address], 06/30/2024 09:34:36 06/30/19 25 06/30/2024 CBC WITH DIFFE RENTI AL/PL ATELE T lymphs 19 % not estab. normal Not Available [facility] ([facility]) [address] [facility], [place], [address], 06/30/2024 09:34:36 06/30/19 25 06/30/2024 CBC WITH DIFFE RENTI AL/PL ATELE T monocytes 7 % not estab. normal Not Available [facility] ([facility]) [address] [facility], [place], [address], 06/30/2024 09:34:36 06/30/19 25 06/30/2024 CBC WITH DIFFE RENTI AL/PL ATELE T eos 1 % not estab. normal Not Available [facility] ([facility]) [address] [facility], [place], [address], 06/30/2024 09:34:36 06/30/19 25 06/30/2024 CBC WITH DIFFE RENTI AL/PL ATELE T basos 0 % not estab. 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 0 above high normal Not Available [facility] ([facility]) [address] [place], [address], 06/30/2024 09:34:36 06/30/19 25 06/30/2024 CBC WITH DIFFE RENTI AL/PL ATELE T lymphs (absolute) 2.3 x10e3 /uL 0.7-3. 1 normal Not Available [facility] ([facility]) [address] [place], [address], 06/30/2024 09:34:36 06/30/19 25 06/30/2024 CBC WITH DIFFE RENTI AL/PL ATELE T monocytes(ab solute) 0.9 x10e3 /uL 0.1-0. 9 normal Not Available [facility] ([facility]) [address] [place], [address], 06/30/2024 09:34:36 06/30/19 25 06/30/2024 CBC WITH DIFFE RENTI AL/PL ATELE T eos (absolute) 0.2 x10e3 /uL 0.0-0. 4 normal Not Available [facility] ([facility]) [address] [place], [address], 06/30/2024 09:34:36 06/30/19 25 06/30/2024 CBC WITH DIFFE RENTI AL/PL ATELE T baso (absolute) 0.0 x10e3 /uL 0.0-0. 2 normal Not Available [facility] ([facility]) [address] [facility], [place], [address], 06/30/2024 09:34:36 06/30/19 25 06/30/2024 CBC WITH DIFFE RENTI AL/PL ATELE T immature granulocytes 0 % not estab. Not Available [facility] ([facility]) [address] [facility], [place], [address], 06/30/2024 09:34:36 06/30/19 25 06/30/2024 CBC WITH DIFFE RENTI AL/PL ATELE T immature grans (abs) 0.0 x10e3 /uL 0.0-0. 1 Not Available [facility] ([facility]) [address] [facility], [place], [address], 06/30/2024 09:34:36 06/30/19 25 06/30/2024 CBC WITH DIFFE RENTI AL/PL ATELE T NRBC WEATHER OBSERVER Not Available [facility] ([facility]) [address] [facility], [place], [address], 06/30/2024 09:34:36 06/30/19 25 06/30/2024 CBC WITH DIFFE RENTI AL/PL ATELE T hematology comments: WEATHER OBSERVER Not Available [facility] ([facility]) [address] [facility], [place], [address], 06/30/2024 09:34:36 06/30/19 25 06/30/2024 COMP. METAB OLIC PANEL (14) glucose 90 mg/dL 70-99 normal Not Available [facility] ([facility]) [address] [facility], [place], [address], 06/30/2024 09:34:37 06/30/19 25 06/30/2024 COMP. METAB OLIC PANEL (14) BUN 24 mg/dL 8-27 normal Not Available [facility] ([facility]) [address] [facility] [place], [address], 06/30/2024 09:34:37 06/30/19 25 06/30/2024 COMP. METAB OLIC PANEL (14) creatinine 1.47 mg/dL 0.76-1 .27 above high normal Not Available [facility] ([facility]) [address] [facility] [place], [address], 06/30/2024 09:34:37 06/30/19 25 06/30/2024 COMP. METAB OLIC PANEL (14) eGFR 52 mL/mi n/1.7 3 >59 below low normal Not Available [facility] ([facility]) [address] [place], [address], 06/30/2024 09:34:37 06/30/19 25 06/30/2024 COMP. METAB OLIC PANEL (14) BUN/creatini ne ratio 16 10-24 normal Not Available [facility] ([facility]) [address] [place], [address], 06/30/2024 09:34:37 06/30/19 25 06/30/2024 COMP. METAB OLIC PANEL (14) sodium 138 mmol/ L 134-14 4 normal Not Available [facility] ([facility]) [address] [place], [address], 06/30/2024 09:34:37 06/30/19 25 06/30/2024 COMP. METAB OLIC PANEL (14) potassium 4.5 mmol/ L 3.5-5. 2 normal Not Available [facility] ([facility]) [address] [place], [address], 06/30/2024 09:34:37 06/30/19 25 06/30/2024 COMP. METAB OLIC PANEL (14) chloride 103 mmol/ L 96-106 normal Not Available [facility] ([facility]) [address] [facility] [place], [address], 06/30/2024 09:34:37 06/30/19 25 06/30/2024 COMP. METAB OLIC PANEL (14) carbon dioxide, total 18 mmol/ L 20-29 below low normal Not Available [facility] ([facility]) [address] [facility] [place], [address], 06/30/2024 09:34:37 06/30/19 25 06/30/2024 COMP. METAB OLIC PANEL (14) calcium 9.1 mg/dL 8.6-10 .2 normal Not Available [facility] ([facility]) [address] [facility] [place], [address], 06/30/2024 09:34:37 06/30/19 25 06/30/2024 COMP. METAB OLIC PANEL (14) protein, total 6.9 g/dL 6.0-8. 5 normal Not Available [facility] ([facility]) [address] [facility] [place], [address], 06/30/2024 09:34:37 06/30/19 25 06/30/2024 COMP. METAB OLIC PANEL (14) albumin 4.3 g/dL 3.9-4. 9 normal Not Available [facility] ([facility]) [address] [facility] [place], [address], 06/30/2024 09:34:37 06/30/19 25 06/30/2024 COMP. METAB OLIC PANEL (14) globulin, total 2.6 g/dL 1.5-4. 5 Not Available [facility] ([facility]) [address] [facility] [place], [address], 06/30/2024 09:34:37 06/30/19 25 06/30/2024 COMP. METAB OLIC PANEL (14) bilirubin, total 0.3 mg/dL 0.0-1. 2 normal Not Available [facility] ([facility]) [address] [facility], [place], [address], 06/30/2024 09:34:37 06/30/19 25 06/30/2024 COMP. METAB OLIC PANEL (14) alkaline phosphatase 72 IU/L 44-121 normal Not Available [facility] ([facility]) [address] [facility], [place], [address], 06/30/2024 09:34:37 06/30/19 25 06/30/2024 COMP. METAB OLIC PANEL (14) AST (SGOT) 14 IU/L 0-40 normal Not Available [facility] ([facility]) [address] [facility], [place], [address], 06/30/2024 09:34:37 06/30/19 25 06/30/2024 COMP. METAB OLIC PANEL (14) ALT (SGPT) 16 IU/L 0-44 normal Not Available [facility] ([facility]) [address] [facility], [place], [address], 06/30/2024 09:34:37 06/30/19 25 06/30/2024 EVELIN+L IPASE amylase 38 U/L 31-110 normal Not Available [facility] ([facility]) [address] [facility], [place], [address], 06/30/2024 09:34:38 06/30/19 25 06/30/2024 EVELIN+L IPASE lipase 21 U/L 13-78 normal Not Available [facility] ([facility]) [address] [facility], [place], [address], 06/30/2024 09:34:38 06/30/19 25 06/29/2024 urina lysis , dipst ick Leukocytes Negati ve Not Available [address], [place], [address], 06/29/2024 11:14:37 06/30/19 25 06/29/2024 urina lysis , dipst ick Nitrite negati ve Not Available [address], [address], 06/29/2024 11:14:37 06/30/19 25 06/29/2024 urina lysis , dipst ick Urobilinogen .2 Not Available [facility] [address], [address], 06/29/2024 11:14:37 06/30/19 25 06/29/2024 urina lysis , dipst ick Protein Negati ve Not Available [address], [address], 06/29/2024 11:14:37 06/30/19 25 06/29/2024 urina lysis , dipst ick pH 5.5 Not Available [address], [address], 06/29/2024 11:14:37 06/30/19 25 06/29/2024 urina lysis , dipst ick Blood Negati ve Not Available [address], [address], 06/29/2024 11:14:37 06/30/19 25 06/29/2024 urina lysis , dipst ick Specific [place] 1.025 Not Available [facility] [address], [address], 06/29/2024 11:14:37 06/30/19 25 06/29/2024 urina lysis , dipst ick Ketone Negati ve Not Available [address], [address], 06/29/2024 11:14:37 06/30/19 25 06/29/2024 urina lysis , dipst ick Bilirubin Negati ve Not Available [address], [address], 06/29/2024 11:14:37 06/30/19 25 06/29/2024 urina lysis , dipst ick Glucose Negati ve Not Available [address], [address], 06/29/2024 11:14:37 06/30/19 25 06/29/2024 urina lysis , dipst ick Appearance Clear Not Available [facility] [address], [address], 06/29/2024 11:14:37 06/30/19 25 06/29/2024 urina lysis , dipst ick Color Yellow Not Available [address], [address], 06/29/2024 11:14:37 07/07/19 25 07/07/2024 CBC WITH DIFFE RENTI AL/PL ATELE T WBC 7.8 x10e3 /uL 3.4-10 .8 normal Not Available [facility] ([facility]) [address] [place], [address], 07/07/2024 09:00:36 07/07/1907/07/2024 CBC WITH DIFFE RENTI AL/PL ATELE T RBC 4.27 x10e6 /uL 4.14-5 .80 normal Not Available [facility] ([facility]) [address] [place], [address], 07/07/2024 09:00:36 07/07/19 25 07/07/2024 CBC WITH DIFFE RENTI AL/PL ATELE T hemoglobin 13.4 g/dL 13.0-1 7.7 normal Not Available [facility] ([facility]) [address] [place], [address], 07/07/2024 09:00:36 07/07/19 25 07/07/2024 CBC WITH DIFFE RENTI AL/PL ATELE T hematocrit 40.7 % 37.5-5 1.0 normal Not Available [facility] ([facility]) [address] [facility], [place], [address], 07/07/2024 09:00:36 07/07/1907/07/2024 CBC WITH DIFFE RENTI AL/PL ATELE T MCV 95 fL 79-97 normal Not Available [facility] ([facility]) [address] [place], [address], 07/07/2024 09:00:36 07/07/1907/07/2024 CBC WITH DIFFE RENTI AL/PL ATELE T MCH 31.4 pg 26.6-3 3.0 normal Not Available [facility] ([facility]) [address] [facility], [place], [address], 07/07/2024 09:00:36 07/07/1907/07/2024 CBC WITH DIFFE RENTI AL/PL ATELE T MCHC 32.9 g/dL 31.5-3 5.7 normal Not Available [facility] ([facility]) [address] [place], [address], 07/07/2024 09:00:36 07/07/1907/07/2024 CBC WITH DIFFE RENTI AL/PL ATELE T RDW 13.4 % 11.6-1 5.4 Not Available [facility] ([facility]) [address] [place], [address], 07/07/2024 09:00:36 07/07/1907/07/2024 CBC WITH DIFFE RENTI AL/PL ATELE T platelets 283 x10e3 /uL 150-45 0 normal Not Available [facility] ([facility]) [address] [place], [address], 07/07/2024 09:00:36 07/07/19 25 07/07/2024 CBC WITH DIFFE RENTI AL/PL ATELE T neutrophils 61 % not estab. normal Not Available [facility] ([facility]) [address] [facility], [place], [address], 07/07/2024 09:00:36 07/07/19 25 07/07/2024 CBC WITH DIFFE RENTI AL/PL ATELE T lymphs 30 % not estab. normal Not Available [facility] ([facility]) [address] [place], [address], 07/07/2024 09:00:36 07/07/19 25 07/07/2024 CBC WITH DIFFE RENTI AL/PL ATELE T monocytes 7 % not estab. normal Not Available [facility] ([facility]) [address] [place], [address], 07/07/2024 09:00:36 07/07/19 25 07/07/2024 CBC WITH DIFFE RENTI AL/PL ATELE T eos 2 % not estab. normal Not Available [facility] ([facility]) [address] [facility], [place], [address], 07/07/2024 09:00:36 07/07/19 25 07/07/2024 CBC WITH DIFFE RENTI AL/PL ATELE T basos 0 % not estab. 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 0 normal Not Available [facility] ([facility]) [address] [place], [address], 07/07/2024 09:00:36 07/07/19 25 07/07/2024 CBC WITH DIFFE RENTI AL/PL ATELE T lymphs (absolute) 2.3 x10e3 /uL 0.7-3. 1 normal Not Available [facility] ([facility]) [address] [place], [address], 07/07/2024 09:00:36 07/07/1907/07/2024 CBC WITH DIFFE RENTI AL/PL ATELE T monocytes(ab solute) 0.5 x10e3 /uL 0.1-0. 9 normal Not Available [facility] ([facility]) [address] [place], [address], 07/07/2024 09:00:36 07/07/19 25 07/07/2024 CBC WITH DIFFE RENTI AL/PL ATELE T eos (absolute) 0.2 x10e3 /uL 0.0-0. 4 normal Not Available [facility] ([facility]) [address] [place], [address], 07/07/2024 09:00:36 07/07/1907/07/2024 CBC WITH DIFFE RENTI AL/PL ATELE T baso (absolute) 0.0 x10e3 /uL 0.0-0. 2 normal Not Available [facility] ([facility]) [address] [place], [address], 07/07/2024 09:00:36 07/07/1907/07/2024 CBC WITH DIFFE RENTI AL/PL ATELE T immature granulocytes 0 % not estab. Not Available [facility] ([facility]) [address] [place], [address], 07/07/2024 09:00:36 07/07/19 25 07/07/2024 CBC WITH DIFFE RENTI AL/PL ATELE T immature grans (abs) 0.0 x10e3 /uL 0.0-0. 1 Not Available [facility] ([facility]) [address] [facility], [place], [address], 07/07/2024 09:00:36 07/07/1907/07/2024 CBC WITH DIFFE RENTI AL/PL ATELE T NRBC WEATHER OBSERVER Not Available [facility] ([facility]) [address] [facility], [place], [address], 07/07/2024 09:00:36 07/07/1907/07/2024 CBC WITH DIFFE RENTI AL/PL ATELE T hematology comments: WEATHER OBSERVER Not Available [facility] ([facility]) [address] [facility], [place], [address], 07/07/2024 09:00:36 10/30/1910/30/2024 CBC WITH DIFFE RENTI AL/PL ATELE T WBC 7.7 x10e3 /uL 3.4-10 .8 normal Not Available [facility] ([facility]) [address] [facility], [place], [address], 10/30/2024 08:23:47 10/30/19 25 10/30/2024 CBC WITH DIFFE RENTI AL/PL ATELE T RBC 4.34 x10e6 /uL 4.14-5 .80 normal Not Available [facility] ([facility]) [address] [facility], [place], [address], 10/30/2024 08:23:47 10/30/19 25 10/30/2024 CBC WITH DIFFE RENTI AL/PL ATELE T hemoglobin 13.6 g/dL 13.0-1 7.7 normal Not Available [facility] ([facility]) [address] [place], [address], 10/30/2024 08:23:47 10/30/19 25 10/30/2024 CBC WITH DIFFE RENTI AL/PL ATELE T hematocrit 43.3 % 37.5-5 1.0 normal Not Available [facility] ([facility]) [address] [facility], [place], [address], 10/30/2024 08:23:47 10/30/19 25 10/30/2024 CBC WITH DIFFE RENTI AL/PL ATELE T MCV 100 fL 79-97 above high normal Not Available [facility] ([facility]) [address] [place], [address], 10/30/2024 08:23:47 10/30/19 25 10/30/2024 CBC WITH DIFFE RENTI AL/PL ATELE T MCH 31.3 pg 26.6-3 3.0 normal Not Available [facility] ([facility]) [address] [place], [address], 10/30/2024 08:23:47 10/30/19 25 10/30/2024 CBC WITH DIFFE RENTI AL/PL ATELE T MCHC 31.4 g/dL 31.5-3 5.7 below low normal Not Available [facility] ([facility]) [address] [place], [address], 10/30/2024 08:23:47 10/30/19 25 10/30/2024 CBC WITH DIFFE RENTI AL/PL ATELE T RDW 13.3 % 11.6-1 5.4 Not Available [facility] ([facility]) [address] [place], [address], 10/30/2024 08:23:47 10/30/19 25 10/30/2024 CBC WITH DIFFE RENTI AL/PL ATELE T platelets 236 x10e3 /uL 150-45 0 normal Not Available [facility] ([facility]) [address] [place], [address], 10/30/2024 08:23:47 10/30/19 25 10/30/2024 CBC WITH DIFFE RENTI AL/PL ATELE T neutrophils 60 % not estab. normal Not Available [facility] ([facility]) [address] [facility], [place], [address], 10/30/2024 08:23:47 10/30/19 25 10/30/2024 CBC WITH DIFFE RENTI AL/PL ATELE T lymphs 30 % not estab. normal Not Available [facility] ([facility]) [address] [facility], [place], [address], 10/30/2024 08:23:47 10/30/19 25 10/30/2024 CBC WITH DIFFE RENTI AL/PL ATELE T monocytes 8 % not estab. normal Not Available [facility] ([facility]) [address] [facility], [place], [address], 10/30/2024 08:23:47 10/30/19 25 10/30/2024 CBC WITH DIFFE RENTI AL/PL ATELE T eos 2 % not estab. normal Not Available [facility] ([facility]) [address] [facility], [place], [address], 10/30/2024 08:23:47 10/30/19 25 10/30/2024 CBC WITH DIFFE RENTI AL/PL ATELE T basos 0 % not estab. 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 0 normal Not Available [facility] ([facility]) [address] [facility], [place], [address], 10/30/2024 08:23:47 10/30/19 25 10/30/2024 CBC WITH DIFFE RENTI AL/PL ATELE T lymphs (absolute) 2.3 x10e3 /uL 0.7-3. 1 normal Not Available [facility] ([facility]) [address] [facility], [place], [address], 10/30/2024 08:23:47 10/30/19 25 10/30/2024 CBC WITH DIFFE RENTI AL/PL ATELE T monocytes(ab solute) 0.6 x10e3 /uL 0.1-0. 9 normal Not Available [facility] ([facility]) [address] [place], [address], 10/30/2024 08:23:47 10/30/19 25 10/30/2024 CBC WITH DIFFE RENTI AL/PL ATELE T eos (absolute) 0.2 x10e3 /uL 0.0-0. 4 normal Not Available [facility] ([facility]) [address] [facility], [place], [address], 10/30/2024 08:23:47 10/30/19 25 10/30/2024 CBC WITH DIFFE RENTI AL/PL ATELE T baso (absolute) 0.0 x10e3 /uL 0.0-0. 2 normal Not Available [facility] ([facility]) [address] [place], [address], 10/30/2024 08:23:47 10/30/19 25 10/30/2024 CBC WITH DIFFE RENTI AL/PL ATELE T immature granulocytes 0 % not estab. Not Available [facility] ([facility]) [address] [place], [address], 10/30/2024 08:23:47 10/30/19 25 10/30/2024 CBC WITH DIFFE RENTI AL/PL ATELE T immature grans (abs) 0.0 x10e3 /uL 0.0-0. 1 Not Available [facility] ([facility]) [address] [facility], [place], [address], 10/30/2024 08:23:47 10/30/19 25 10/30/2024 CBC WITH DIFFE RENTI AL/PL ATELE T NRBC WEATHER OBSERVER Not Available [facility] ([facility]) [address] [facility], [place], [address], 10/30/2024 08:23:47 10/30/19 25 10/30/2024 CBC WITH DIFFE RENTI AL/PL ATELE T hematology comments: WEATHER OBSERVER Not Available [facility] ([facility]) [address] [facility], [place], [address], 10/30/2024 08:23:47 10/30/19 25 10/30/2024 COMP. METAB OLIC PANEL (14) glucose 89 mg/dL 70-99 normal Not Available [facility] ([facility]) [address] [facility], [place], [address], 10/30/2024 08:23:48 10/30/19 25 10/30/2024 COMP. METAB OLIC PANEL (14) BUN 18 mg/dL 8-27 normal Not Available [facility] ([facility]) [address] [facility], [place], [address], 10/30/2024 08:23:48 10/30/19 25 10/30/2024 COMP. METAB OLIC PANEL (14) creatinine 1.29 mg/dL 0.76-1 .27 above high normal Not Available [facility] ([facility]) [address] [facility], [place], [address], 10/30/2024 08:23:48 10/30/19 25 10/30/2024 COMP. METAB OLIC PANEL (14) eGFR 61 mL/mi n/1.7 3 >59 normal Not Available [facility] ([facility]) [address] [facility] [place], [address], 10/30/2024 08:23:48 10/30/19 25 10/30/2024 COMP. METAB OLIC PANEL (14) BUN/creatini ne ratio 14 10-24 normal Not Available [facility] ([facility]) [address] [facility] [place], [address], 10/30/2024 08:23:48 10/30/19 25 10/30/2024 COMP. METAB OLIC PANEL (14) sodium 136 mmol/ L 134-14 4 normal Not Available [facility] ([facility]) [address] [facility] [place], [address], 10/30/2024 08:23:48 10/30/19 25 10/30/2024 COMP. METAB OLIC PANEL (14) potassium 4.7 mmol/ L 3.5-5. 2 normal Not Available [facility] ([facility]) [address] [facility] [place], [address], 10/30/2024 08:23:48 10/30/19 25 10/30/2024 COMP. METAB OLIC PANEL (14) chloride 100 mmol/ L 96-106 normal Not Available [facility] ([facility]) [address] [facility] [place], [address], 10/30/2024 08:23:48 10/30/19 25 10/30/2024 COMP. METAB OLIC PANEL (14) carbon dioxide, total 21 mmol/ L 20-29 normal Not Available [facility] ([email or web address]) [address] [facility] [place], [address], 10/30/2024 08:23:48 10/30/19 25 10/30/2024 COMP. METAB OLIC PANEL (14) calcium 9.7 mg/dL 8.6-10 .2 normal Not Available [facility] ([facility]) [address] [facility], [place], [id number], 10/30/2024 08:23:48 10/30/19 25 10/30/2024 COMP. METAB OLIC PANEL (14) protein, total 7.1 g/dL 6.0-8. 5 normal Not Available [facility] ([facility]) [address] [place], [id number], 10/30/2024 08:23:48 10/30/19 25 10/30/2024 COMP. METAB OLIC PANEL (14) albumin 4.4 g/dL 3.9-4. 9 normal Not Available [facility] ([facility]) [address] [facility] [place], [address], 10/30/2024 08:23:48 10/30/19 25 10/30/2024 COMP. METAB OLIC PANEL (14) globulin, total 2.7 g/dL 1.5-4. 5 Not Available [facility] ([facility]) [address] [place] [place], [id number], 10/30/2024 08:23:48 10/30/19 25 10/30/2024 COMP. METAB OLIC PANEL (14) bilirubin, total 0.4 mg/dL 0.0-1. 2 normal Not Available [facility] ([facility]) [address] [facility] [place], [address], 10/30/2024 08:23:48 10/30/19 25 10/30/2024 COMP. METAB OLIC PANEL (14) alkaline phosphatase 63 IU/L 44-121 normal Not Available [facility] ([facility]) [address] [facility] [place], [address], 10/30/2024 08:23:48 10/30/19 25 10/30/2024 COMP. METAB OLIC PANEL (14) AST (SGOT) 16 IU/L 0-40 normal Not Available [facility] ([facility]) [address] [facility], [place], [address], 10/30/2024 08:23:48 10/30/19 25 10/30/2024 COMP. METAB OLIC PANEL (14) ALT (SGPT) 14 IU/L 0-44 normal Not Available [facility] ([facility]) [address] [facility] [place], [address], 10/30/2024 08:23:48 10/30/19 25 10/30/2024 LIPID PANEL cholesterol, total 244 mg/dL 100-19 9 above high normal Not Available [facility] ([facility]) [address] [facility] [place], [address], 10/30/2024 08:23:48 10/30/19 25 10/30/2024 LIPID PANEL triglyceride s 193 mg/dL 0-149 above high normal Not Available [facility] ([facility]) [address] [place], [address], 10/30/2024 08:23:48 10/30/19 25 10/30/2024 LIPID PANEL HDL cholesterol 34 mg/dL >39 below low normal Not Available [facility] ([facility]) [address] [place], [address], 10/30/2024 08:23:48 10/30/19 25 10/30/2024 LIPID PANEL VLDL cholesterol wen 36 mg/dL 5-40 Not Available [facility] ([facility]) [address] [place], [address], 10/30/2024 08:23:48 10/30/19 25 10/30/2024 LIPID PANEL LDL chol calc ([facility] [[email or web address] 174 mg/dL 0-99 above high normal Not Available [facility] ([facility]) [address] [place], [address], 10/30/2024 08:23:48 10/30/19 25 10/30/2024 LIPID PANEL LDL calc comment: WEATHER 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 Not Available [facility] ([facility]) [address] [facility], [place], [address], 10/30/2024 08:23:49 10/30/1910/30/2024 PSA TOTAL (REFL EX TO FREE) prostate specific Ag 0.5 NG/mL 0.0-4. 0 normal Cipriano ECLIA metho dolog y. Accor ding to the Ameri can [employer] g[employer] iatio n, Serum PSA shoul d decre ase and remai n at undet ectab le level s after radic al prost atect belgica. The AUA defin es bioch emica l recur rence as an initi al PSA value 0.2 ng/mL or great er follo wed by a subse quent confi rmato ry PSA value 0.2 ng/mL or great er. Value s obtai alistair with diffe rent assay metho ds or kits canno t be used inter goyal eably . Resul ts canno t be inter prete d as absol allan evide nce of the prese nce or absen ce of bandar stuart se. Not Available [facility] ([facility]) [address] [facility], [place], [address], 10/30/2024 08:23:49 10/30/19 25 10/30/2024 HEMOG LOBIN A1C hemoglobin A1C 5.8 % 4.8-5. 6 above high normal Predi abete s: 5.7 - 6.4 Diabe suly: >6.4 Glyce vivi contr ol for adult s with diabe suly: <7.0 Not Available [facility] ([facility]) [address] [facility], [place], [address], 10/30/2024 08:23:49 10/30/19 25 10/29/2024 micro album in/cr eatin ine, mass ratio , urine Microalbumin 10 Not Available Auroraantonio constantino [address], [place], [address], 10/29/2024 08:33:05 10/30/19 25 10/29/2024 micro album in/cr eatin ine, mass ratio , urine Creatinine 100 Not Available Aurorarajesh cosme [address], [place], [address], 10/29/2024 08:33:05 10/30/19 25 10/29/2024 micro album in/cr eatin ine, mass ratio , urine Ratio <30 Not Available [address], [address], 10/29/2024 08:33:05 05/05/19 25 XR, chest , 2 view No observ ation record ed. [email or web address] [address] , [place], [address], 05/06/2024 08:55:00 Result Notes None recorded. Problems Name Problem SNOMED Code Status Onset Date Resolution Date Notes Provider Name and Address Organization Details Recorded Time Hypertensive disorder 28524823 Active 2020 TREVOR Salgado - [facility] 07:46:06 Hyperlipidemi a 37101050 Active 2020 TREVOR Salgado - [facility] 07:46:17 Chronic obstructive pulmonary disease 41067784 Active 2020 Marycruz Winkler PA-C [address], [place], [address] , [facility] - [facility] 09:50:44 Anxiety 70593587 Active 2020 Marycruz Winkler PA-C [address], [place], [address] , [place] - [facility] 1 09:51:00 Irregular heart beat 398402134 Active 2020 Marycruz Winkler PA-C [address], [place], [address] , [place] - [facility] 1 09:55:07 Bradycardia 53068651 Active 2022 Marycruz Winkler PA-C [address], [place], [address] , [place] - [facility] 3 09:07:29 Type 2 diabetes mellitus without complication 471195681 Active 2023 Marycruz Winkler PA-C [address], [place], [address] , [place] - [facility] 4 09:02:02 Left lower quadrant pain 152450197 Active 2024 Marycruz Mcnair PA-C [address], [place], [address] , [place] - [facility] 5 11:12:30 Coronary arteriosclero sis 39255841 Active 2024 Marycruz Mcnair PA-C [address], [place], [address] , [place] - [facility] 5 09:02:04 Problem Notes None recorded. Procedures Surgical History Date Name Laterality Status Provider Name and Address Organization Details Recorded Time 10/30/19 25 Advance Care Planning completed Cecil Garland TREVOR - [facility] 10/29/2024 07:12:53 10/30/19 25 Functional Status Assessed completed Cecil Garland [place] - [facility] 10/29/2024 07:12:53 04/28/19 25 Nebulizer tx completed Matt Shaffer PA-C [address], [place], [address], [place] - [facility] 04/28/2024 09:15:51 11/07/19 24 Advance Care Planning completed Cecil Garland TREVOR - [facility] 11/07/2023 07:24:50 11/07/19 24 Functional Status Assessed completed Cecil Garland TREVOR - [facility] 11/07/2023 07:24:50 09/24/19 24 Medication Reconcilliation completed Cecil MURRAY - [facility] 09/24/2023 14:08:03 11/07/19 23 Advance Care Planning completed Cecil MURRAY - [facility] 11/06/2022 07:36:33 11/07/19 23 Functional Status Assessed completed Cecil MURRAY - [facility] 11/06/2022 07:36:33 Knee Surgery completed Cecil MURRAY - [facility] 07/21/2020 09:36:18 Shoulder joint surgery completed Cecil MURRAY - [facility] 07/21/2020 09:36:03 repair of heart completed Cecil MURRAY - [facility] 07/21/2020 09:36:32 Imaging Results None recorded. Procedure Notes None recorded. Medical Equipment None Reported. Allergies Allergen ID Allergen Name Allergen Category Reaction Reaction Severity Criticality Documentation Date Start Date Code Code System Note Provider Name and Address Organization Details Recorded Time 185874 Product containin g 3-hydroxy -3-methyl glutaryl- coenzyme A reductase inhibitor (product) medicatio n muscle cramps moderate high 11/08/2023 07839 009 SNOMED TREVOR Salgado - [facility] 09:30:08 Medications Name Sig Start Date Stop Date Status Note LastModified by Organization Details LastModified Time prednisone 10 mg tablet TAKE ONE TABLET BY MOUTH EVERY DAY FOR 5 DAYS 05/10 completed Not Available Not Available Not [...] DAY BY ORAL ROUTE FOR 10 DAYS. 01/07 completed Not Available Not Available Not Available albuterol sulfate 2.5 mg/3 mL (0.083 %) solution for nebulizatio n INHALE THREE (3) ML BY MOUTH EVERY 4-6 HOURS NEEDED FOR 30 DAYS active Not Available Not Available No t Available azithromyci n 250 mg tablet TAKE 2 TABLETS TODAY THEN TAKE 1 TABLET DAILY FOR THE NEXT 4 DAYS BY MOUTH 04/28 completed Not Available Not Available Not Available metoprolol succinate ER 50 mg tablet,exte nded release 24 hr TAKE ONE (1) TABLET EVERY DAY BY ORAL ROUTE FOR 90 DAYS. 04/28 completed Not Available Not Available Not Available prednisone 20 mg tablet TAKE ONE (1) TABLET EVERY DAY BY ORAL ROUTE FOR FIVE (5) DAYS. 06/29 completed Not Available Not Available Not Available metoprolol succinate ER 100 mg tablet,exte nded release 24 hr TAKE 1 TABLET BY MOUTH EVERY NIGHT AT BEDTIME active Not Available Not Available No t Available Wellbutrin SR 150 mg tablet, 12 hr sustained-r elease Take 1 tablet every day by oral route. 07/21 completed Not Available Not Available Not Available amlodipine 5 mg tablet TAKE 1 TABLET BY MOUTH EVERY DAY 09/23 completed Not Available Not Available Not Available bisoprolol fumarate 10 mg tablet TAKE ONE (1) TABLET EVERY DAY BY ORAL ROUTE. active Not Available Not Available No t Available isosorbide mononitrate ER 120 mg tablet,exte nded release 24 hr TAKE 1 TABLET BY MOUTH DAILY active Not Available Not Available No t Available isosorbide mononitrate ER 60 mg tablet,exte nded release 24 hr TAKE 1 TABLET BY MOUTH EVERY DAY 09/23 completed Not Available Not Available Not Available Vitamin C 1,000 mg tablet Take 1 tablet every day by oral route. active Not Available Not Available No t Available oxycodone-a cetaminophe n 10 mg-325 mg tablet TAKE ONE (1) TABLET ORALLY TWICE A DAY NEEDED FOR PAIN 11/06 completed Not Available Not Available Not Available amlodipine 10 mg tablet Take 1 tablet every day by oral route for 90 days. 2024 active Not Available Not Available Not Avai lable nitroglycer in 0.4 mg sublingual tablet DISSOLVE [...] Not Available Not Available No t Available dexamethaso ne sodium phosphate 4 mg/mL injection solution Inject 1 mL every day by intramusc ular route for 1 day. 06/29 completed Not Available Not Available Not Available methylpredn isolone 4 mg tablets in a dose pack FOLLOW PACKAGE DIRECTION S 10/29 completed Not Available Not Available Not Available albuterol sulfate HFA 90 mcg/actuati on aerosol inhaler INHALE TWO (2) PUFFS EVERY FOUR (4) HOURS BY INHALATIO N ROUTE NEEDED. active Not Available Not Available No t Available doxycycline hyclate 100 mg tablet Take 1 tablet twice a day by oral route for 7 days. 06/29 completed Not Available Not Available Not Available amoxicillin 875 mg-potassiu m clavulanate 125 mg tablet TAKE ONE (1) TABLET EVERY 12 HOURS BY ORAL ROUTE FOR 10 DAYS. 07/06 completed Not Available Not Available Not Available tobramycin 0.3 %-dexametha sone 0.1 % eye drops,suspe nsion INSTILL ONE DROP INTO AFFECTED EYE(S) EVERY EIGHT HOURS FOR 5 DAYS 06/29 completed Not Available Not Available Not Available olmesartan 40 mg tablet TAKE 1 TABLET BY MOUTH EVERY DAY active Not Available Not Available No t Available eplerenone 25 mg tablet Take 1 tablet every day by oral route. 07/21 completed Not Available Not Available Not Available ezetimibe 10 mg tablet TAKE ONE (1) TABLET EVERY DAY BY ORAL ROUTE FOR 30 DAYS. active Not Available Not Available No t Available cyclobenzap rine 5 mg tablet Take 1 tablet 3 times a day by oral route. 07/21 completed Not Available Not Available Not Available rosuvastati n 20 mg tablet 12/31 completed Not Available Not Available Not Available rosuvastati n 40 mg tablet TAKE 1 TABLET BY MOUTH EVERY DAY active Not Available Not Available No t Available Crestor 10 mg tablet Take 1 tablet every day by oral route. 05/09 completed Not Available Not Available Not Available bupropion HCl XL 150 mg 24 hr tablet, extended release TAKE ONE (1) TABLET EVERY DAY active Not Available Not Available No t Available sildenafil (pulmonary hypertensio n) 20 mg tablet TAKE ONE TABLET BY MOUTH THREE TIMES DAILY. Administe r doses AT least 4-6 hours APART 07/06 completed Not Available Not Available Not Available garlic one a day active Not Available Not Bhavna ilable Not Available ranolazine ER 500 mg tablet,exte nded release,12 hr TAKE ONE (1) TABLET BY MOUTH TWICE DAILY 04/28 completed Not Available Not Available Not Available ranolazine ER 1,000 mg tablet,exte nded release,12 hr TAKE ONE (1) TABLET TWICE A DAY BY ORAL ROUTE FOR 90 DAYS. active Not Available Not Available No t Available prasugrel HCl 10 mg tablet TAKE 1 TABLET BY MOUTH EVERY DAY active Not Available Not Available No t Available Lactobacill us acidoph-L.b ulgaricus 1 million cell tablet TAKE ONE (1) TABLET EVERY DAY BY ORAL ROUTE DIRECTED FOR 10 DAYS. 10/29 completed Not Available Not Available Not Available Farxiga 10 mg tablet TAKE ONE (1) TABLET EVERY DAY BY ORAL ROUTE. 05/05 completed Not Available Not Available Not Available Trelegy Ellipta 100 mcg-62.5 mcg-25 mcg powder for inhalation INHALE 1 PUFF EVERY DAY 2023 active Not Available Not Available Not Avai lable aspirin 81 mg capsule Take 1 capsule every day by oral route. active Not Available Not Available No t Available Vitals Date Recorded Body height Respiratory rate Pain severity - 0-10 verbal numeric rating [Score] - Reported Body temperature Heart rate Oxygen saturation Oxygen saturation in Arterial blood by Pulse oximetry Systolic And Diastolic Provider Name and Address Organization Details Last Updated DateTime 5 170.18 cm 14 /min 0 98 [degF] 63 /min 97 % 97 % 120/60 mm[Hg] Katie Del Toro [place] - [facility] 5 11:39:15 Date Recorded Body height Respiratory rate Pain severity - 0-10 verbal numeric rating [Score] - Reported Body mass index (BMI) Body weight Body temperature Oxygen saturation Oxygen saturation in Arterial blood by Pulse oximetry Heart rate Systolic And Diastolic Provider Name and Address Organization Details Last Updated DateTime 5 170.18 cm 14 /min 0 36 kg/m2 366596. 8 g 97.9 [degF] 98 % 98 % 67 /min 140/84 mm[Hg] Singhkatina Garland [place] - [facility] 5 08:25:43 Date Recorded Body height Body temperature Body mass index (BMI) Body weight Heart rate Oxygen saturation Oxygen saturation in Arterial blood by Pulse oximetry Respiratory rate Pain severity - 0-10 verbal numeric rating [Score] - Reported Systolic And Diastolic Provider Name and Address Organization Details Last Updated DateTime 5 170.18 cm 98.4 [degF] 35.7 kg/m2 125313. 06 g 86 /min 98 % 98 % 14 /min 0 138/68 mm[Hg] Evelin Juarez [place] - [facility] 5 10:46:42 Date Recorded Body height Respiratory rate Body temperature Heart rate Oxygen saturation Oxygen saturation in Arterial blood by Pulse oximetry Pain severity - 0-10 verbal numeric rating [Score] - Reported Systolic And Diastolic Provider Name and Address Organization Details Last Updated DateTime 5 170.18 cm 14 /min 98.2 [degF] 70 /min 98 % 98 % 0 128/84 mm[Hg] Evelin Juarez [place] - [facility] 5 08:54:25 Date Recorded Body height Respiratory rate Pain severity - 0-10 verbal numeric rating [Score] - Reported Body mass index (BMI) Body weight Body temperature Heart rate Oxygen saturation Oxygen saturation in Arterial blood by Pulse oximetry Systolic And Diastolic Provider Name and Address Organization Details Last Updated DateTime 5 170.18 cm 14 /min 0 36.7 kg/m2 112353. 71 g 97.7 [degF] 69 /min 99 % 99 % 130/78 mm[Hg] Cecil MURRAY - [facility] 5 08:20:46 Social History Question Answer Notes LastModified by Organizat ion Details LastModified Time Tobacco Smoking Status Current Every Day Smoker Singhkatina Josezuly burton [place] - [facility] 07/21/2020 09:35:16 Are You Blind Or Do You Have Difficulty Seeing? No [email or web address] Information n ot available 11/06/2022 In The 14 Days Before Symptom Onset, Have You Had Close Contact With A Laboratory-confirm ed COVID-19 While That Case Was Ill? No [email or web address] Information n ot available 11/06/2022 In The 14 Days Before Symptom Onset, Have You Had Close Contact With A Person Who Is Under Investigation For COVID-19 While That Person Was Ill? No [email or web address] Information not available 11/06/2022 Have You Been To An Area Known To Be High Risk For COVID-19? No [email or web address] Information not available 11/06/2022 Are You Deaf Or Do You Have Serious Difficulty Hearing? No [email or web address] Information not available 11/06/2022 Have You Processed Blood Or Body Fluids From An Ebola Virus Disease Patient Without Appropriate PPE? No [email or web address] Information not available 11/06/2022 Do You Reside In Or Have You Traveled To An Area Where Ebola Virus Transmission Is Active? No [email or web address] Information not available 11/06/2022 Have You Recently Or Are You Planning To Travel To An Area With Zika Virus? No [email or web address] Information not available 11/06/2022 What Was The Date Of Your Most Recent Tobacco Screening? 10/29/2024 [email or web address] Information not available 10/29/2024 What Is Your Current Pack Years? 30ormorepack years Information not available 05/10/2022 At What Age Did You Start Smoking Tobacco? 16 [email or web address] Information not available 05/10/2022 How Much Tobacco Do You Smoke? 0.5 PPD Information not available 05/10/2022 Has Tobacco Cessation Counseling Been Provided? Yes [email or web address] Information not available 05/10/2022 On What Date Was Tobacco Cessation Counseling Provided? 10/29/2024 [email or web address] Information not available 10/29/2024 How Many Years Have You Smoked Tobacco? 50 [email or web address] Information not available 07/21/2020 Do You Have Difficulty Walking Or Climbing Stairs? No [email or web address] Information not available 11/06/2022 Sex: Male Functional Status Question Answer Note LastModified by Organizat ion Details LastModified Time Do you or have you ever used any other forms of tobacco or nicotine? No [email or web address] Information not available 05/10/2022 Do you or have you ever used smokeless tobacco? Never used smokeless tobacco [email or web address] Information not available 09/06/2020 Do you have transportation difficulties? No [email or web address] Information not available 11/06/2022 Are you able to walk independently without assistance or assistive devices? YESWOREST [email or web address] Information not available 11/06/2022 Do you have difficulty doing errands alone? No [email or web address] Information not available 11/06/2022 Are you able to care for yourself independently? Yes [email or web address] Information not available 11/06/2022 Do you have difficulty dressing, bathing, grooming, or toileting? No [email or web address] Information not available 11/06/2022 Do you or have you ever used e-cigarettes or vape? Never used electronic cigarettes [email or web address] Information not available 09/06/2020 Mental Status Question Answer Note LastModified by Organization D etails LastModified Time Do you have difficulty concentrating, remembering or making decisions? No [email or web address] Information no t available 11/06/2022 Family History Relationship Description Onset Age of this Age Resolved Age Notes LastModified by Organization Details LastModified Time Mother Heart disease [email or web address] Not available 06/24 09:34:57 Father Carcinoma of prostate [email or web address] Not available 2020 10:54:14 Medical History Condition Response Allergies/Hayfever N Bedwetting N AIDS/HIV N Acid Reflux (GERD) N Hyperlipidemia Y Abuse/Domestic Violence N Acne N ADD/ADHD N Alzheimer's Disease N Abnormal PAP N Hypertension Y Past Encounters Encounter ID Performer Location Encounter Start Date Encounter Closed Date Diagnosis/Indication Diagnosis SNOMED-CT Code Diagnosis ICD10 Code Diagnosis IMO Codes Diagnosis Note [id number] Marycruz Winkler PA-C [address] [address] 07/21/2020 09:20:19 07/21/2020 09:59:07 Hyperlipidemia 29748573 E78.5 Hypertensive disorder 38 218489 I10 stable Chest pain 12936767 R07. 9 none today, pt has cath tomorrow with Dr Gómez. Pt will get copy of BW for us. Long-term drug therapy 007039267 Z79.899 chronic conditions stable. Anxiety 70081169 F41.9 Chronic ob structive pulmonary disease 98187993 J44.[address] Hendricks. Irregular heart beat 361 022963 R00.8 [id number] RUDY Mcdowell [address] [address] 09/06/2020 10:53:57 09/06/2020 11:19:41 Anxiety 71576378 F41.9 stable Chronic ob structive pulmonary disease 99813675 J44.[address] Hendricks. pt was to go this week and had to miss. Hyperlipidemia 78170982 E78.5 Hypertensive disorder 38 196448 I10 stable Irregular heart beat 361 158739 R00.8 pt saw cards last with in the year-pt had heart cath. No stent. Dr Gómez. Taking med ication for chronic disease 8275117080 61433 Z79.899 chronic conditions are stable. pt did not need refills. Screening for malignant neoplasm of prostate 813178672 Z12.5 Screening for malignant neoplasm of colon 196149039 Z12.11 pt did 4-[address] limon. [id number] RUDY Mcdowell [address] [address] 05/12/2021 09:53:40 05/12/2021 10:24:24 Chronic obstructive pulmonary disease 12160310 J44.[address] Hendricks. He has not f/u lately he needs to f/u. Anxiety 11301082 F41.9 stable Hyperlipidemia 01270717 E78.5 we will get lipid in office. Hypertensive disorder 38 721192 I10 stable Irregular heart beat 361 643735 R00.8 pt saw cards last with in the year-pt had heart cath. No stent. Dr Gómez. Screening for malignant neoplasm of colon 375558346 Z12.11 pt did [address] limon per pt General ex amination of patient 139488630 Z00.00 Hyperlipid emia screening 655172138 Z13.220 Screening for malignant neoplasm of prostate 849362230 Z12.5 Endocrine/ metabolic screening 799786309 Z13.228 we will get bmp in office. Exercises education, guidance, and counseling 138622912 Z71.82 went over to exercise 5 days a week for 30 mins a day. Dietary ma nagement surveillance 293984604 Z71.3 Body mass index 30+ - obesity 873677652 Z68.34 34.8 Viral screening 99249842 4 Z11.59 Smoker 66337661 F17.200 went over to stop smoking. gave education about quitting. pt is on wellbutrin . pt has had ct lungs through Dr hendricks. Taking med ication for chronic disease 1193432913 29724 Z79.899 chronic conditions are stable. pt did not need refills. [id number] RUDY Mcdowell[address] [address] 05/17/2021 11:21:04 05/17/2021 11:53:25 Serum creatinine above reference range 009039610 R79.89 Pruritic rash 25061583 L 28.2 Long-term drug therapy 699047262 Z79.899 chronic conditions stable. pt did not need refills today. [id number] RUDY Mcdowell [address] [address] 11/08/2021 08:36:38 11/08/2021 09:18:49 Anxiety 25206795 F41.9 stable Chronic ob structive pulmonary disease 47055316 J44.[address] Hendricks. saw 3 weeks ago. He has Ct scan. Hyperlipidemia 43815156 E78.5 we will get lipid in office. Hypertensive disorder 38 066003 I10 stable, went over to monitor BP. IF stays elevated let our office know. Irregular heart beat 361 040564 R00.8 pt saw cards last with in the year-pt had heart cath. No stent. Dr Gómez. Screening for malignant neoplasm of colon 864000698 Z12.11 pt did [address] limon per pt Body mass index 30+ - obesity 527614230 Z68.34 35.2 Taking med ication for chronic disease 0049410569 15194 Z79.899 chronic conditions are stable. pt did not need refills. Difficulty passing urine 719065201 R39.470 [id number] Marycruz [place], PA-C [address] [address] 12/05/2021 13:32:02 12/05/2021 14:22:53 COVID-19 400172390 U07.1 pt has had symptoms for over 10 days. He is out of quarantine . test neg in office. Acute sinusitis 95768080 J01.90 push fluids and steam. Long-term drug therapy 135087499 Z79.899 chronic conditions stable. pt did not need refills today. [id number] Rachel Layton APRN [facility] [address] [place] [address] 01/19/2022 09:18:28 01/19/2022 10:05:51 Secondary erectile dysfunction 247107254 N52.1 -discussed daily with additional on demand dose of cialis. advised he can call if he wants to try that and i can send an rx. Benign pro static hyperplasia with outflow obstruction 471819037 N40.1 -would rather do OTC.-encou raged super beta prostate BID x 3-4 months trial. Family his tory of malignant neoplasm of prostate 931117711 Z80.42 -discussed annual screening Hyperlipidemia 14013900 E78.5 -likely contribute s to ED Hypertensive disorder 38 111440 I10 -likely contribute s to ED [id number] Marycruz Winkler PA-C [address] [address] 05/10/2022 08:15:04 05/10/2022 08:40:54 Chronic obstructive pulmonary disease 96342621 J44.[address] Hendricks. He has Ct scan. Pt has seen him with in the last month. Hypertensive disorder 38 620267 I10 stable, went over to monitor BP. IF stays elevated let our office know. Pt saw Dr Gómez. Had test ran. Anxiety 53932953 F41.9 stable Hyperlipidemia 43203062 E78.5 we will get lipid in office. Irregular heart beat 361 993436 R00.8 pt saw cards last with in the year-pt had heart cath. No stent. Dr Gómez. Screening for malignant neoplasm of colon 322187465 Z12.11 pt did cologuard 06/13 in chart. Screening for malignant neoplasm of prostate 275645386 Z12.5 Pt had psa in oct 2021. Body mass index 30+ - obesity 839988572 Z68.35 35.3 Obesity 658138452 E66.9 Echocardio gram abnormal 137400777 R93.1 pt had abn stress test. Pt f/u with cards in 2 weeks. They started new med. they are talking about doing cath. Pt sees Dr Gómez. Pt was there last . Taking med ication for chronic disease 5299292209 45401 Z79.899 chronic conditions are stable. pt did not need refills. [id number] RUDY Mcdowell [address] [address] 10/22/2022 14:53:26 10/22/2022 15:23:19 Pain of right elbow joint 9832851639 5859782 M25.521 Elbow joint swelling 298 806165 M25.429 rice therapy. Long-term drug therapy 969113632 Z79.899 chronic conditions stable. Pain of right wrist 3169 326748 47310 M25.227 [id number] Marycruz Winkler PA-C [address] [address] 11/06/2022 08:33:30 11/06/2022 09:31:38 Adult health examination 368922265 Z00.00 Depression screening 171 413660 Z13.31 score 5. Pt states he is ok with wellbutrin . Examinatio n of blood pressure 225086641 Z01.30 stable. Diet education 26336296 Z71.3 went over to eat healthy. Counseling 343826953 Z71 .82 Exercise counseling . Patient encouraged to exercise 30 minutes 5 days a week. At [facility] ed risk for falls 447555068 Z91.81 STEADI FAST screening score of __6___. went over fall risks with patient. Advance care planning 71 3217064 Z71.89 Finding of body mass index 985803652 E66.9 35.7. Anxiety 52946628 F41.9 stable. Chronic ob structive pulmonary disease 59172934 J44.9 stable per pt. pt has inhaler. Hyperlipidemia 91301832 E78.5 we will get lipid in office. Hypertensive disorder 38 494178 I10 stable, went over to monitor BP. IF stays elevated let our office know. Pt saw Dr Gómez. Had test ran. Irregular heart beat 361 539373 R00.8 pt saw cards last with in the year-pt had heart cath. No stent. Dr Gómez. Screening for malignant neoplasm of colon 759220132 Z12.11 pt did cologuard 06/13 in chart. Screening for malignant neoplasm of prostate 049542604 Z12.5 Pt had psa in oct 2021. Pain of ri ght elbow joint 3258135681 6199953 M25.[address] Rowland he wanted to do surgery and goes back tomorrow. Bradycardia 30947354 R00 .1 pt has pacemaker and fib. Taking med ication for chronic disease 0772010814 63145 Z79.899 chronic conditions are stable. pt did not need refills. [id number] RUDY Mcdowell [address] 2 12/31/2022 10:14:36 12/31/2022 11:52:41 Headache 83180335 R51.9 psuh fluids. Insect bite - wound 2764 83727 T14.8XXA went over to take probitoics . Long-term drug therapy 321263439 Z79.899 chronic conditions stable. [id number] RUDY Mcdowell [address] [address] 01/07/2023 08:17:51 01/07/2023 08:54:36 Headache 95905992 R51.[address] pt had [address] today in office. Insect bite - wound 2764 96316 T14.8XXA improved finish clinda. Long-term drug therapy 497067668 Z79.899 chronic conditions stable. [id number] RUDY Mcdowell [address] [address] 05/09/2023 08:52:20 05/09/2023 09:42:35 Hypertensive disorder 43259259 I10 stable, went over to monitor BP. IF stays elevated let our office know. Pt saw Dr Gómez. Had test ran. Anxiety 46346618 F41.9 stable. Chronic ob structive pulmonary disease 97248623 J44.9 stable per pt. pt has inhaler. pt sees Dr hendricks. Hyperlipidemia 08941048 E78.5 we will get lipid in office. Smoker 61724382 F17.200 went over to stop smoking. gave education about quitting. pt is on wellbutrin . pt has had ct lungs through Dr hendricks. last Ct was with in the year. Bradycardia 08176881 R00 .1 pt has pacemaker and fib. Irregular heart beat 361 145956 R00.8 pt saw cards last with in the year-pt had heart cath. No stent. Dr Gómez. Screening for malignant neoplasm of colon 375771884 Z12.11 pt did cologuard 06/13 in chart. Taking med ication for chronic disease 9898818145 63359 Z79.899 chronic conditions are stable. pt did not need refills. Pruritic rash 21563272 L 28.2 creamed helped gave refill. [id number] Marycruz Winkler PA-C [address] [address] 09/24/2023 14:07:17 09/24/2023 14:28:17 Smoker 25833853 F17.200 went over to stop smoking. gave education about quitting. pt is on wellbutrin . pt has had ct lungs through Dr Hendricks. last Ct was with in the year. He is not using patches that hospital sent home. History of placement of stent for coronary artery disease 442030686 Z95.5 he had two new stents placed. He has total of 18 stents per pt. labs were ok in ann-marie blacks note. Pt f/u tomorrow. He is on HCTZ now at 12.5 mg. He takes half a 25 mg. Essential hypertension 59741313 I10 pt is now on hctz half a t 25 mg. he is on amlodipine , isosorbide , Metoprolol , olmesartan . went over to push water. Chest pain 03771226 R07. 9 none today, improving. Pt had two new stents placed. Long-term drug therapy 988441515 Z79.899 chronic conditions are stable, pt does not need refills today. [id number] Marycruz Winkler PA-C [address] [address] 11/07/2023 08:32:42 11/07/2023 09:09:42 Adult health examination 851231927 Z00.00 Depression screening 171 529235 Z13.31 A depression screening was completed via a standardiz ed screening tool. 5 minutes were spent discussing depression screening results and risk factors. Scored 0. Examinatio n of blood pressure 050442946 Z01.30 stable. Diet education 67916366 Z71.3 went over to eat healthy. Counseling 824339612 Z71 .82 Exercise counseling . Patient encouraged to exercise 30 minutes 5 days a week. At [facility] ed risk for falls 722269625 Z91.81 STEADI FAST screening score of ___2__. went over fall risks with patient. Advance care planning 71 6410373 Z71.89 Finding of body mass index 859760126 Z68.36 36.6 Smoker 46786584 F17.200 went over to stop smoking. gave education about quitting. pt is on wellbutrin . pt has had ct lungs through Dr Hendricks. last Ct was with in the year. He is not using patches that hospital sent home. Pt sees Dr Hendricks and he will place order for pt to get this. Anxiety 48844817 F41.9 stable. Chronic ob structive pulmonary disease 63093642 J44.9 stable per pt. pt has inhaler. pt sees Dr hendricks. Hyperlipidemia 25235147 E78.5 we will get lipid in office. Hypertensive disorder 38 499570 I10 stable, went over to monitor BP. IF stays elevated let our office know. Pt saw Dr Gómez. Had test ran. Irregular heart beat 361 410607 R00.8 pt saw cards last with in the year-pt had heart cath. No stent. Dr Gómez. Screening for malignant neoplasm of colon 319320046 Z12.11 pt did cologuard 06/13 in chart. Screening for malignant neoplasm of prostate 196238211 Z12.5 Taking med ication for chronic disease 2007439344 28473 Z79.899 chronic conditions are stable. pt did not need refills. Type 2 winston betes mellitus without complication 708512972 E11.9 pt is on Farxiga. [id number] Marycruz Winkler PA-C [place] [address] 12/11/2023 14:30:34 12/11/2023 15:12:41 Smoker 63995207 F17.200 went over to stop smoking. gave education about quitting. pt is on wellbutrin . pt has had ct lungs through Dr Hendricks. last Ct was with in the year. He is not using patches that hospital sent home. Pt sees Dr Hendricks and he will place order for pt to get this. Left lower quadrant pain 019715853 R10.32 went over moist heat, mild diet. we will treat for diverticul itis just encase. labs last month were ok. [id number] Matt Shaffer PA-C [place] [address] 04/28/2024 08:49:43 04/28/2024 09:40:11 Expiratory wheezing 8617418 R06.2 Acute bact erial bronchitis 024848676 J20.9 Dyspnea 026939706 R06.00 Cough 88618604 R05.9 [id number] Matt Shaffer PA-C [place] [address] 04/30/2024 11:33:47 04/30/2024 11:48:46 Acute bacterial bronchitis 845253028 J20.9 -IMPROVING Cough 92190127 R05.9 -STABLE Dyspnea 101860308 R06.00 -IMPROVING Expiratory wheezing 9763 007 R06.2 -IMPROVING [id number] Marycruz Winkler PA-C [address] [address] 05/05/2024 08:15:11 05/05/2024 08:42:54 Chronic obstructive pulmonary disease 09994846 J44.9 stable per pt. pt has inhaler. pt sees Dr Hendricks. Type 2 winston betes mellitus without complication 216498086 E11.9 pt is on Farxiga. Pt stop taking the farxiga and we will get a1c today. Hypertensive disorder 38 249011 I10 stable, went over to monitor BP. IF stays elevated let our office know. Pt saw Dr Gómez. Had test ran. He has had 5 stents placed. Anxiety 09848910 F41.9 stable per pt. Hyperlipidemia 66974454 E78.5 we will get lipids in office. Smoker 20702629 F17.200 went over to stop smoking. gave education about quitting. pt is on wellbutrin . pt has had ct lungs through Dr Hendricks. last Ct was with in the year. He is not using patches that hospital sent home. Pt sees Dr Hendricks. Bradycardia 93232370 R00 .1 pt has pacemaker and fib. Irregular heart beat 361 327346 R00.8 pt saw cards last with in the year-pt had heart cath. Dr Gómez. Screening for malignant neoplasm of colon 006430804 Z12.11 pt did cologuard 06/13 in chart. Pt will repeat this year. Body mass index 30+ - obesity 476976792 Z68.36 36 Obesity 260467121 E66.9 Taking med ication for chronic disease 8393605643 09766 Z79.899 chronic conditions are stable. pt did not need refills. Cough 05740809 R05.9 improving on doxy [id number] RUDY Figueroa [address] [address] 06/29/2024 10:36:22 06/29/2024 11:40:14 Left lower quadrant pain 446577287 R10.32 956706 -NewHx of diverticul itis, pt does not want to do ct yet due to cost [id number] RUDY Figueroa [address] [address] 07/06/2024 08:49:34 07/06/2024 09:19:15 Left lower quadrant pain 501294530 R10.32 690302 -NewHx of diverticul itis, pt does not want to do ct yet due to cost Coronary arteriosclerosis 62362029 I25.10 33062 Pt needs refillPt would like to see another cardiologi st to discuss his meds [id number] Marycruz [place], PA-C [address] [address] 10/29/2024 08:09:40 10/29/2024 08:42:43 Adult health examination 593133448 Z00.00 Depression screening 171 696936 Z13.31 A depression screening was completed via a standardiz ed screening tool. 5 minutes were spent discussing depression screening results and risk factors. scored 0. Examinatio n of blood pressure 458501778 Z01.30 stable. Diet education 86297402 Z71.3 went over to eat healthy. Counseling 005116096 Z71 .82 Exercise counseling . Patient encouraged to exercise 30 minutes 5 days a week. At [facility] ed risk for falls 902776391 Z91.81 STEADI FAST screening score of ___3__. went over fall risks with patient. Advance care planning 71 0285595 Z71.89 Cigarette smoker 0281105 7 F17.210 165257 went over to stop smoking. gave education about quitting. pt is on wellbutrin . pt has had ct lungs through Dr Hendricks. last Ct was with in the year. He is not using patches that hospital sent home. Pt sees Dr Hendricks. Pt has apt with Dr sutton office now. He has ct chest then. Anxiety 16509193 F41.9 stable per pt. Bradycardia 26703340 R00 .1 pt has pacemaker and fib. pt sees Dr gómez. Coronary arteriosclerosis 38530047 I25.10 30591 Chronic ob structive pulmonary disease 86152526 J44.9 stable per pt. pt has inhaler. pt sees Dr Hendricks. Hyperlipidemia 94966991 E78.5 we will get lipids in office. Hypertensive disorder 38 919677 I10 stable, went over to monitor BP. IF stays elevated let our office know. Pt saw Dr Gómez. Had test ran. He has had 18 stents placed all together. He has nitro and sees Dr gómez this month. Irregular heart beat 361 893026 R00.8 pt saw cards last with in the year-pt had heart cath. Dr Gómez. Type 2 winston betes mellitus without complication 261415780 E11.9 pt is on Farxiga. Pt stop taking the farxiga and we will get a1c today. eye exam due 11/16. pt does not check BS at home. Screening for malignant neoplasm of colon 960081984 Z12.11 814840 pt did cologuard 06/16 in chart. Prostate s pecific antigen measurement 21141720 Z12.5 174811 Severe obesity 126099126 1 9104 E66.01 Z68.36 6095495138 Heart disease 40471277 I 51.9 54558 Taking med ication for chronic disease 5558290699 01669 Z79.899 chronic conditions are stable. pt did not need refills. he will call Health Concerns Section Related Observation LastModified by Organization Detai ls LastModified Time None Recorded Concern Status LastModified by Organization Details LastModified Time None Recorded Advance Directives Directive None Recorded Payers Insurance Date Sequence Insurance Name Policy Number Policy Castro Covered Member ID Castro Member ID Guarantor Name 11/23/2020 1 UNSPECIFIED REMIT PAYOR Solomonsonu Thurman 12/16/2024 1 [facility] (MEDICARE REPLACEMENT/AD VANTAGE - HMO) [id number] Solomon Olman [id number] Solomon [facility] [place] 04/28/2024 1 [employer] (MEDICARE REPLACEMENT/AD VANTAGE - PPO) [id number] 05/31/2021 1 [facility] [id number] [facility] Notes Date Note Type Note Provider Name and Address Organization Details Recorded Time 04/30/2024 text/html PT IS FEELING A LITTLE BETTER. PT REPORTS COUGH AND SOA HAVE IMPROVED SOME. VITALS REVD. PT IS STILL ON MEDICINE. PT IS DOING HOME NEBULIZERS. Matt Shaffer PA-C [address], [place], [address], [employer] [facility] 04/30/2024 11:45:07 05/05/2024 text/html Patient is here for check up and medication refills.He had bronchitis last week and was no antibiotics and steroids. He has one antibiotic left. He is feeling better. No fever. Cough is much better. No sore throat. No N/V/D. Pt has not used trelegy. Pt sees Dr Hendricks. Marycruz Winkler PA-C [address], [place], [address], [place] [facility] 05/05/2024 08:37:11 06/29/2024 text/html ROS as noted in the HPI pt presents to the office for abdominal pain. pt states he started having pain in his lower stomach, pt states it started last .It does seem to be radiating around, worse after he ate.It is a little better today.He has had diverticulitis before and this is similar.reports a little bit of diarrheadenies feverdenies urinary issues.Pt denies chest pain, SOA, trouble swallowing Marycruz Mcnair PA-C [address], [place], [address], [place] [facility] 06/29/2024 12:05:35 07/06/2024 text/html ROS as noted in the HPI Pt presents today for a follow up on LLQ pain. pt states he is feeling a lot better today.Denies any more pain He does need a refill on his nitro, he denies current chest pain. 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 Marycruz Mcnair PA-C [address], [place], [address], [employer] [facility] 07/06/2024 09:08:41 10/29/2024 text/html Medicare Annual Wellness VisitReported by PatientSocial/Behavio ral HistoryFor diet and nutrition, patient reportshealthy diet. For fracture risk, patient reportsno history of fractures,no recent explained fracture,no sudden unexplained fractures, andno previous musculoskeletal injuries. For physical activity, patient reportsexercises on a regular basis,recent increase in physical activity, andgood physical condition.Mental Status:For depression risk, patient reportsnever feels sad, empty, or tearful,no loss of interest in activities,no significant changes in weight,no sleep disturbances or insomnia,no agitation,no loss of energy,no feelings of worthlessness or guilt,no thoughts of suicide,no history of depression, andno history of mood disorders. For orientation, patient reportsno disorientation to time,no disorientation to date, andno disorientation to place. For concentration and memory, patient reportsno decreased concentrating ability,no memory lapses or loss, anddoes not forget words. For speech/motor difficulties, patient reportsno speech difficulties,no difficulty expressing formulated concepts,no difficulty with fine manipulative tasks,no difficulty writing/copying,no slowed reaction time, anddoes not knock things over when trying to pick them up.Functional AbilityFor hearing, patient reportsno loss of hearing. For vision, patient reportsno vision problems. For activities of daily living, patient reportsable to bathe with limited or no assistance,able to contol urination and bowels,able to dress with limited or no assistance,able to feed self with limited or no assistance,able to get out of chair or bed with limited or no assistance,able to groom with limited or no assistance, andable to toilet with limited or no assistance. For instrumental activities of daily living, patient reportsable to do house work with limited or no assistance,able to grocery shop with limited or no assistance,able to manage medications with limited or no assistance,able to manage money with limited or no assistance,able to prepare meals with limited or no assistance, andable to use the phone with limited or no assistance. For falls risk assessment, patient reportsno frequent falls while walking,no fall in the past year,no fall since last visit, andno dizziness/vertigo. For home safety, patient reportsno unsafe annabel hazzards,no unsafe stairs,no unsafe gas appliances,working smoke/co detectors,wears protective head gear for biking/high velocity,use of seatbelts,practicing 'safer sex',no vision or hearing loss while driving,no fire arms,has hand bars in the bathroom/shower, andgood lighting in the home. Patient is here for wellness exam. Marycruz Winkler PA-C [facility] [address], [place], [address], [place] [facility] 10/29/2024 08:37:48
--- NOTE | 2024-12-29 02:24 | PC.NURSE ---
Patient arrived to ICU unit @02:07am via [employer]
--- NOTE | 2024-12-29 02:27 | CA_ITS ---
APPROVED REPORT EXAM: Comprehensive 2D, Doppler, and color-flow Echocardiogram with contrast Stenographer Secretary: Karyna Rhoades CRT Ht: 5 ft 8 in Wt: 227lbs BSA: 2.16 BP: 117/72 mmHg Indications: Atrial Fibrillation RVR, Palpitations, AICD, CEA, Stents, HTN, HLD, smoker EF 43% 08/08/22 echo Echo Enhancing Agent Indication: Endocardial border delineation Agent(s) / Amount(s) Used: Definity 2 cc Comments: Definity given 2D Dimensions LA Volume 52.00 mL LA Volume Index 23.50 mL/m2 (M/F) 16-34 M-Mode Dimensions RVDd 3.50 cm (0.9-2.6) LA Diam 3.59 cm (1.9-4.0) LVDd 5.55 cm (3.5-5.7) LVDs 4.30 cm (3.5-5.7) IVSd 1.57 cm (0.6-1.1) PWd 1.33 cm (0.6-1.1) EF (Teich) 44.80% FS 22.50% EDV (Teich) 150.50 mL TAPSE 1.53 (<1.7) ESV (Teich) 83.10 mL LV Diastology E Decel Time 233 (160-240 msec) E/A Ratio 3.54 MED A' 5.70 cm/s LAT A' 4.10 cm/s Aortic Valve AO Peak GR. 6.40 mmHg Mitral Valve MV E Max Jason. 70.0 (40-130 cm/s) MV A Velocity 20.0 (40-130 cm/s) E/A Ratio 3.54 MV PHT 68.0 ms Pulmonary Valve PV Peak Velocity 195.0 (50-150 cm/s) Tricuspid Valve TR P. Velocity 152.00 cm/s RAP Estimate 10.00 mmHg RVSP 19.20 mmHg Left Ventricle The left ventricle is normal size. Left ventricular systolic function is mildly to moderately reduced. There is increased left ventricular wall thickness. There is mild to moderate global hypokinesis present. There is a severe hypokinesis of the distal and apical LV burgess. Diastolic function is indeterminate. No left ventricle thrombus noted on this study. LVEF is 40%. Right Ventricle The right ventricle is normal size. The right ventricular systolic function is normal. Atria The left atrium size is normal. The right atrium size is normal. There is no color Doppler evidence of interatrial shunt. Aortic Valve The aortic valve is mildly thickened. There is no hemodynamically significant aortic valvular stenosis. Trace aortic regurgitation is present. Mitral Valve The mitral valve is normal in structure. No evidence of mitral valve stenosis. Trace mitral regurgitation is present. Tricuspid Valve The tricuspid valve leaflets are thin and pliable. Trace tricuspid regurgitation. There is insufficient TR jet to estimate RVSP. Pulmonic Valve The pulmonary valve is grossly normal in structure. Trace pulmonic valve regurgitation is present. Great Vessels The aortic root is normal in size. IVC is normal in size and collapses >50% with inspiration. Pericardium There is no pericardial effusion. Other Information Study Quality: Technically Difficult Conclusion Mild to moderate reduction in LV systolic function (LVEF 40%). Severe hypokinesis of the distal and apical LV burgess. No significant valvular stenosis or regurgitation. Electronically signed by : Harika Quiñonez MD 12/29/2024 11:48:25
--- NOTE | 2024-12-29 02:28 | PC.NURSE ---
Patient refused CRE swab at this time. Educated patient on importance of CRE and protocol, ABHISHEK shields and courtney aware.
--- NOTE | 2024-12-29 02:29 | PC.NURSE ---
Pt to ICU RM 262. Direct admission from [facility] [place]. Pt on Diltiazem 10 mg/hr and Heparin 1540 units/hr upon admission. Diltiazem was titrated to 5mg/hr when placed on our IV pumps due to heart rate in 70's. Heparin was started at [place] @2240. PTT was 28. Dr Rivas made aware of pts arrival, gtts, and gtt rates.
--- NOTE | 2024-12-29 02:37 | PC.NURSE ---
Addendum entered by Inga Moreno RN 12/29/24 02:41: Pt received Heparin bolus 5000 units at [facility] Original Note: Pharmacy contacted for Heparin consult. Was notified of pts baseline PTT, gtt rate, and time started. PTT to be drawn again @0500.
[2024-12-29] MEDS: D5W IV (02:40)
[2024-12-29] MEDS: HEPARIN IV (02:40)
[2024-12-29] MEDS: HEPARIN 25,000 UNITS/D5W 500 ML 30.8 UNIT IV (02:56)
--- NOTE | 2024-12-29 03:40 | PC.NURSE ---
Home meds locked in med drawer.
--- NOTE | 2024-12-29 04:40 | PC.NURSE ---
No changes since admission. Pt remains in a-fib with controlled rate. Pt has no complaints. Denies chest pain. VSS.
--- NOTE | 2024-12-29 05:20 | HMH.PHAINT1 ---
Pharmacy Intervention Comments: Home medication list verified using list from outpatient pharmacy
--- NOTE | 2024-12-29 05:44 | P.CONPHA_ITS ---
[facility] Pharmacy Heparin Dosing Demographic Data Admission date:: 12/28/24 Date: 12/29/24 Time: 05:44 Allergies Allergy/AdvReac Type Severity Reaction Status Date / Time rosuvastatin (From Crestor) Allergy Unknown Unknown Verified 11/02/24 10:29 allergy reaction Height: 1.73 m Weight: 101 kg Indication Medication therapy:: Heparin Current Indications:: NEW ONSET ATRIAL FIB/NSTEMI PER RN Current Active Problems (Updated 12/29/24 @ 05:57 by Olayinka Rivas MD) Atrial fibrillation with RVR (Acute) HFrEF (heart failure with reduced ejection fraction) (Acute) COPD (chronic obstructive pulmonary disease) (Chronic) Tobacco dependence syndrome (Chronic) PAD (peripheral artery disease) (Chronic) HLD (hyperlipidemia) (Chronic) Essential hypertension (Chronic) CAD (coronary artery disease) (Chronic) CVA?: No Bleeding problem?: No Kidney disease?: No IA?: Yes Desired PTT range:: 50-75 seconds Comments:: DRIP STARTED AT 30.8 ML/HR (1540 UNITS/HR) Labs Anticoagulation Lab Results:: BASELINE PTT FROM [facility] = 28 Core Measures Is INR > or = 2 at discharge?: No Most Recent Labs:: NA Were Heparin and Warfarin started on the same day?: No
--- NOTE | 2024-12-29 05:48 | EXP.HP ---
History of Present Illness *Admission Date: 12/29/24 *Reason for visit:: Chest pain *History of present illness: Patient is a 69-year-old male with past medical history of COPD, severe CAD, hypertension, tobacco use, hyperlipidemia who presents to the hospital due to chest pain and A-fib with RVR. Patient at time of my evaluation denies nausea vomiting diarrhea constipation dysuria fevers and chills. Patient mentions he follows up with Dr. Gómez. He is currently taking aspirin and effient, denies history of atrial fibrillation. He has pacemaker. [facility] Disclaimer: The information contained in this section may have been updated after the patient was seen, as this information can be updated by other users. Medical History SVT (supraventricular tachycardia) HFrEF (heart failure with reduced ejection fraction) Ventricular tachycardia Impotence Typical angina NYHA Class III cardiovascular function Post-operative complication Gynecomastia HHD (hypertensive heart disease) HLD (hyperlipidemia) CAD (coronary artery disease) Multiple nodules of lung Diastolic heart failure Obesity PAD (peripheral artery disease) Essential hypertension COPD (chronic obstructive pulmonary disease) GERD (gastroesophageal reflux disease) PVC (premature ventricular contraction) Systolic heart failure Tobacco dependence syndrome Surgical History History of endarterectomy Family History Other No significant family history Social History (Updated 12/29/24 @ 03:20 by Inag Moreno RN) Smoking Status: Current every day smoker tobacco type: cigarettes packs per day: 1 alcohol intake: never substance use type: denies use current occupational status: unemployed Travel in the last 8 weeks?: Inside the [place] household members: significant other housing: house current occupational exposures/hazards: No caffeine: Yes Have you lived/traveled outside US in past 30 days?: No Contact w/someone who lives/traveled outside US past 30 days?: No Exposure to someone with infectious disease in past 14 days?: No Do you have a fever (greater than 100.4 F or 38 C)?: No Have you tested positive for COVID-19?: No Exposed to someone with COVID-19 in past 14 days?: No Do you have a sore throat?: No Do you have a cough?: No Do you have any weakness?: No Are you experiencing any nausea/vomitting?: No Do you have any diarrhea?: No Are you experiencing any unusual bleeding?: No Do you have any muscle aches/pain?: No Do you have any abdominal pain?: No Are you experiencing loss of taste or smell?: No Other Medical History Have you received the Flu Vaccine for this season: No Have you received the Pneumonia Vaccine: No Review of Systems Review of Systems Review of systems:: pertinent systems reviewed and negative unless documented below Meds Home Medications and Allergies Home Medications ?Medication ?Instructions ?Recorded ?Confirmed ?Type ascorbic acid (vitamin C) 1,000 mg 1,000 mg PO DAILY 04/10/17 12/29/24 History tablet aspirin 81 mg tablet,delayed 81 mg PO DAILY 04/10/17 12/29/24 History release (Adult Low Dose Aspirin) bupropion HCl 150 mg tablet,12 hr 150 mg PO DAILY 04/10/17 12/29/24 History sustained-release fluticasone fur. 100 mcg-umeclid 1 inh inhalation DAILY 10/19/21 12/29/24 History 62.5 mcg-vilant 25 mcg inhalat.powder (Trelegy Ellipta) nitroglycerin 0.4 mg sublingual 0.4 mg sublingual Q5MINP PRN chest 09/17/23 12/29/24 History tablet (Nitrostat) pain olmesartan 40 mg tablet 40 mg PO DAILY 09/17/23 12/29/24 History prasugrel HCl 10 mg tablet 10 mg PO DAILY 09/17/23 12/29/24 History amlodipine 10 mg tablet 10 mg PO DAILY #90 tabs 06/16/24 12/29/24 Rx metoprolol succinate 100 mg 100 mg PO HS 12/29/24 12/29/24 History tablet,extended release 24 hr ranolazine 1,000 mg 1,000 mg PO BID 12/29/24 12/29/24 History tablet,extended release,12 hr New Prescriptions to Start Prescriptions: Allergies Allergy/AdvReac Type Severity Reaction Status Date / Time rosuvastatin (From Crestor) Allergy Unknown Unknown Verified 11/02/24 10:29 allergy reaction Exam Data for Last 24 hours Vital signs and Labs for Last 24 Hours: Temp Pulse Resp BP Pulse Ox O2 Del Method 98.2 F 71 18 117/72 95 Room Air 12/29/24 04:00 12/29/24 05:01 12/29/24 05:01 12/29/24 05:01 12/29/24 05:01 12/29/24 05:01 I & O for Last 24 hours: Intake & Output 12/26/24 12/27/24 12/28/24 12/29/24 23:59 23:59 23:59 23:59 Weight 101 kg Constitutional Constitutional: no acute distress *Routine HEENT Exam Head: Present normocephalic Eye: Present EOMI and PERRL ENT: Present mucous membranes moist *Routine Neck Exam Neck: Present supple; Absent lymphadenopathy *Routine Respiratory Exam Respiratory: Present CTA bilaterally *Routine Cardiovascular Exam Cardiovascular: Present irregular rhythm *Routine Abdominal Exam Abdominal: Present soft and normoactive bowel sounds; Absent tenderness *Routine Rectal Exam Rectal:: deferred *Routine Genitalia Exam Genitalia:: deferred *Routine Extremities Exam Extremities: Absent cyanosis, clubbing or edema *Routine Skin Exam Skin: Present warm; Absent rash *Routine Neurological Exam Neurological: Present alert and oriented X3 Assessment and Plan *Assessment and plan (1) Atrial fibrillation with RVR: Status: Acute Category: Medical Code(s): I48.91 - Unspecified atrial fibrillation (2) Tobacco dependence syndrome: Status: Chronic Category: Medical Code(s): F17.200 - Nicotine dependence, unspecified, uncomplicated (3) COPD (chronic obstructive pulmonary disease): Status: Chronic Qualifiers: COPD type: emphysema Emphysema type: other Qualified Code(s): J43.8 - Other emphysema Category: Medical Code(s): J44.9 - Chronic obstructive pulmonary disease, unspecified (4) PAD (peripheral artery disease): Status: Chronic Category: Medical Code(s): I73.9 - Peripheral vascular disease, unspecified (5) HLD (hyperlipidemia): Status: Chronic Qualifiers: Hyperlipidemia type: mixed hyperlipidemia Qualified Code(s): E78.2 - Mixed hyperlipidemia Category: Medical Code(s): E78.5 - Hyperlipidemia, unspecified (6) Essential hypertension: Status: Chronic Category: Medical Code(s): I10 - Essential (primary) hypertension (7) CAD (coronary artery disease): Status: Chronic Qualifiers: Coronary Disease-Associated Artery/Lesion type: [place] artery [place] vs. transplanted heart: [place] heart Associated angina: with stable angina Qualified Code(s): I25.118 - Atherosclerotic heart disease of [place] coronary artery with other forms of angina pectoris Category: Medical Code(s): I25.10 - Atherosclerotic heart disease of [place] coronary artery without angina pectoris Plan Patient is a 69-year-old male with past medical history of COPD, severe CAD, hypertension, tobacco use, hyperlipidemia who presents to the hospital due to chest pain and A-fib with RVR. Patient at time of my evaluation denies nausea vomiting diarrhea constipation dysuria fevers and chills. Patient mentions he follows up with Dr. Gómez. He is currently taking aspirin and amb, denies history of atrial fibrillation. He has pacemaker. 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
[2024-12-29 06:09] LABS: Albumin Level 3.4 g/dl (3.5-5.0); Chloride 107 mmol/L (98-107)
[2024-12-29 06:10] LABS: Potassium 3.7 mmoL/L (3.5-5.1); Sodium 139 mmol/L (136-145)
[2024-12-29 06:13] LABS: Alanine Aminotransferase 15 U/L (12-78); Albumin/Globulin Ratio 1.1 (1.1-1.8); Alkaline Phosphatase 74 U/L (38-126); Anion Gap 13.7 mEq/L (5-15); Aspartate Amino Transferase 23 U/L (17-59); Bilirubin,Total 0.3 mg/dl (0.2-1.3); Calcium 8.8 mg/dl (8.4-10.2); Carbon Dioxide 22 mmol/L (22.0-30.0); Globulin 3.0 g/dL (1.3-3.2); Glucose 117 mg/dl (74-100); Total Protein,Serum 6.4 g/dl (6.3-8.2)
[2024-12-29 06:18] LABS: Blood Urea Nitrogen 22 mg/dl (9-20)
[2024-12-29 06:26] LABS: Creatinine Clearance Estimated 85 mL/min (50-200); Creatinine,Serum 1.20 mg/dl (0.66-1.25); Estimated Glomerular Filt Rate 60 ml/min (>60); GFR (African American) 73 ML/MIN (>60)
[2024-12-29 06:28] LABS: INR 1.04 (0.9-1.1); Prothrombin Time 11.5 seconds (10.1-12.5)
[2024-12-29 07:16] LABS: PTT Heparin (inpatient only) 80.9 Seconds (50-75)
[2024-12-29 07:26] LABS: Troponin I < 0.01 ng/ml (0.00-0.034)
[2024-12-29] MEDS: DEFINITY US ECHO CONTRAST 2ML INJ 2 MG IV (07:57)
[2024-12-29] MEDS: HEPARIN 25,000 UNITS/D5W 500 ML 28 UNIT IV (08:03)
[2024-12-29 08:15] LABS: Cholesterol 179 mg/dl (140-200); Triglycerides 140 mg/dl (30-150)
[2024-12-29 08:16] LABS: HDL Cholesterol 26 mg/dl (40-60)
[2024-12-29 08:24] LABS: NT Pro Brain Natriuretic Pep. 2030 pg/mL (0-125)
--- NOTE | 2024-12-29 08:42 | CT_ITS ---
FINAL REPORT TECHNIQUE: Axial imaging of the chest is obtained after the administration of contrast. 3-D MIP reformatted images were also obtained and reviewed per PE protocol. This study was performed with techniques to keep radiation doses as low as reasonably achievable (ALARA). Individualized dose reduction techniques using automated exposure control or adjustment of mA and/or kV according to the patient's size were employed. CLINICAL HISTORY: New onset A. fib, SOA COMPARISON: None FINDINGS: The pulmonary arteries are well filled. There is no evidence of pulmonary embolus. Secondary to timing of the contrast bolus, the exam is nondiagnostic for aortic dissection. Heart size is normal. There is no mediastinal, hilar, or axillary lymphadenopathy. Changes of emphysema are present. There is a cluster of less than 5 mm in size nodules in the posterior right upper lobe, favor postinfectious or post inflammatory. There is no pleural or pericardial effusion. Limited evaluation of the upper abdomen is without acute abnormality. No acute osseous abnormality. IMPRESSION: No evidence of pulmonary embolism. There is a cluster of less than 5 mm in size nodules in the posterior right upper lobe, favor postinfectious or inflammatory. Reviewed, Interpreted and Dictated by Dea Devi MD Transcribed by Richelle Cuba Authenticated and [facility]
[2024-12-29 08:45] LABS: Thyroid Stimulating Hormone 1.24 uIU/mL (0.465-4.68)
--- NOTE | 2024-12-29 08:47 | EXP.CARD.CON ---
History of Present Illness History of Present Illness Consult date: 12/29/24 Requesting physician: Javan Adams Consult reason: atrial fibrillation and shortness of breath Chief complaint: SOA, new onset A. fib Additional Medical History:: 1. CAD A. Lithotripsy with 2 JEANNE to LAD, 08/2023 B. JEANNE to RCA, 2 JEANNE to LAD, 06/2023 C. JEANNE in 2017 D. Aspirin/Effient 2. HFrEF A. History of EF 45% on echo in 2022 (previously as low as 33%) B. Cardiac MRI showed EF 34% 3. Dual-chamber AICD in place ([facility]) - implanted 09/2022 4. PAD A. History of bare-metal stent placement to bilateral iliac arteries with occluded right common iliac artery, CT of abd/pelvis, 11/2023 B. History of endarterectomy 5. Continued tobacco use History of present illness: 69-year-old white male with medical history as noted above presented for evaluation of shortness of breath, heart fluttering and balance instability that began over the last 2 days. Patient was noted to be in atrial fibrillation with a rapid ventricular response and was subsequently admitted and placed on IV diltiazem and IV heparin. After further questioning the patient believes he has missed his metoprolol over the last 2 to 3 days. This morning his rate has improved but he still appears to be in atrial fibrillation. We will give him his routine dose of metoprolol this morning along with a low-dose of diltiazem to discontinue the IV diltiazem. I would like to check a CTA of the chest to rule out pulmonary embolus before switching heparin to oral medications. Will also need to consider proceeding with left heart catheterization this admission due to history of significant coronary artery disease and recent stenting last year. [facility] Disclaimer: The information contained in this section may have been updated after the patient was seen, as this information can be updated by other users. Medical History SVT (supraventricular tachycardia) HFrEF (heart failure with reduced ejection fraction) Ventricular tachycardia Impotence Typical angina NYHA Class III cardiovascular function Post-operative complication Gynecomastia HHD (hypertensive heart disease) HLD (hyperlipidemia) CAD (coronary artery disease) Multiple nodules of lung Diastolic heart failure Obesity PAD (peripheral artery disease) Essential hypertension COPD (chronic obstructive pulmonary disease) GERD (gastroesophageal reflux disease) PVC (premature ventricular contraction) Systolic heart failure Tobacco dependence syndrome Surgical History History of endarterectomy Family History Other No significant family history Social History (Updated 12/29/24 @ 03:20 by Inga Moreno RN) Smoking Status: Current every day smoker tobacco type: cigarettes packs per day: 1 alcohol intake: never substance use type: denies use current occupational status: unemployed Travel in the last 8 weeks?: Inside the [place] household members: significant other housing: house current occupational exposures/hazards: No caffeine: Yes Have you lived/traveled outside US in past 30 days?: No Contact w/someone who lives/traveled outside US past 30 days?: No Exposure to someone with infectious disease in past 14 days?: No Do you have a fever (greater than 100.4 F or 38 C)?: No Have you tested positive for COVID-19?: No Exposed to someone with COVID-19 in past 14 days?: No Do you have a sore throat?: No Do you have a cough?: No Do you have any weakness?: No Are you experiencing any nausea/vomitting?: No Do you have any diarrhea?: No Are you experiencing any unusual bleeding?: No Do you have any muscle aches/pain?: No Do you have any abdominal pain?: No Are you experiencing loss of taste or smell?: No Review of Systems Review of Systems Review of systems:: pertinent systems reviewed and negative unless documented below *Cardiovascular Cardiovascular: Reports chest pain, Reports dyspnea and Reports palpitations *Respiratory Respiratory: Reports cough, Reports dyspnea and Reports wheezing Endocrine Endocrine: Reports palpitations Allergic/Immunologic Allergic/Immunologic: Reports wheezing Exam Data for Last 24 hours Vital signs and Labs for Last 24 Hours: Temp Pulse Resp BP Pulse Ox O2 Del Method 97.5 F L 77 19 122/69 92 L Room Air 12/29/24 08:19 12/29/24 08:19 12/29/24 08:19 12/29/24 08:19 12/29/24 08:19 12/29/24 08:19 Laboratory Results - last 24 hr 12/29/24 05:20: PT 11.5, INR 1.04, APTT 80.9 H*, Sodium 139, Potassium 3.7, Chloride 107, Carbon Dioxide 22, Anion Gap 13.7, BUN 22 H, Creatinine 1.20, Estimated Creat Clear 85, Estimated GFR 60, Est GFR ( Amer) 73, Glucose 117 H, Lactate 0.8, Calcium 8.8, Total Bilirubin 0.3, AST 23, ALT 15, Alkaline Phosphatase 74, Troponin I < 0.01, NT-Pro-B Natriuret Pep 2030 H, Total Protein 6.4, Albumin 3.4 L, Globulin 3.0, Albumin/Globulin Ratio 1.1, Triglycerides 140, Cholesterol 179, LDL Cholesterol Direct 112.33, VLDL Cholesterol 28, HDL Cholesterol 26 L, Cholesterol/HDL Ratio 6.9 H I & O for Last 24 hours: Intake & Output 12/26/24 12/27/24 12/28/24 12/29/24 11:59 11:59 11:59 11:59 Output Total 200 / 200 Balance -200 / -200 Weight 222 lb 10.67 oz Constitutional Constitutional: no acute distress *Routine Respiratory Exam Respiratory: Present rhonchi, wheezes and diminished air movement *Routine Cardiovascular Exam Cardiovascular: Present murmur and irregularly irregular; Absent gallop or rubs *Routine Extremities Exam Extremities: Absent edema *Routine Neurological Exam Neurological: Present alert, oriented X3 and CN II-XII intact Meds Home Medications and Allergies Home Medications ?Medication ?Instructions ?Recorded ?Confirmed ?Type ascorbic acid (vitamin C) 1,000 mg 1,000 mg PO DAILY 04/10/17 12/29/24 History tablet aspirin 81 mg tablet,delayed 81 mg PO DAILY 04/10/17 12/29/24 History release (Adult Low Dose Aspirin) bupropion HCl 150 mg tablet,12 hr 150 mg PO DAILY 04/10/17 12/29/24 History sustained-release fluticasone fur. 100 mcg-umeclid 1 inh inhalation DAILY 10/19/21 12/29/24 History 62.5 mcg-vilant 25 mcg inhalat.powder (Trelegy Ellipta) nitroglycerin 0.4 mg sublingual 0.4 mg sublingual Q5MINP PRN chest 09/17/23 12/29/24 History tablet (Nitrostat) pain olmesartan 40 mg tablet 40 mg PO DAILY 09/17/23 12/29/24 History prasugrel HCl 10 mg tablet 10 mg PO DAILY 09/17/23 12/29/24 History amlodipine 10 mg tablet 10 mg PO DAILY #90 tabs 06/16/24 12/29/24 Rx metoprolol succinate 100 mg 100 mg PO HS 12/29/24 12/29/24 History tablet,extended release 24 hr ranolazine 1,000 mg 1,000 mg PO BID 12/29/24 12/29/24 History tablet,extended release,12 hr New Prescriptions to Start Prescriptions: Allergies Allergy/AdvReac Type Severity Reaction Status Date / Time rosuvastatin (From Crestor) Allergy Unknown Unknown Verified 11/02/24 10:29 allergy reaction Assessment and Plan *Assessment and plan (1) Atrial fibrillation with RVR: Status: Acute Category: Medical Code(s): I48.91 - Unspecified atrial fibrillation (2) HFrEF (heart failure with reduced ejection fraction): Status: Acute Category: Medical Code(s): I50.20 - Unspecified systolic (congestive) heart failure (3) COPD (chronic obstructive pulmonary disease): Status: Chronic Qualifiers: COPD type: emphysema Emphysema type: other Qualified Code(s): J43.8 - Other emphysema Category: Medical Code(s): J44.9 - Chronic obstructive pulmonary disease, unspecified (4) Tobacco dependence syndrome: Status: Chronic Category: Medical Code(s): F17.200 - Nicotine dependence, unspecified, uncomplicated (5) PAD (peripheral artery disease): Status: Chronic Category: Medical Code(s): I73.9 - Peripheral vascular disease, unspecified (6) HLD (hyperlipidemia): Status: Chronic Qualifiers: Hyperlipidemia type: mixed hyperlipidemia Qualified Code(s): E78.2 - Mixed hyperlipidemia Category: Medical Code(s): E78.5 - Hyperlipidemia, unspecified (7) Essential hypertension: Status: Chronic Category: Medical Code(s): I10 - Essential (primary) hypertension (8) CAD (coronary artery disease): Status: Chronic Qualifiers: Associated angina: with stable angina Coronary Disease-Associated Artery/Lesion type: [place] artery [place] vs. transplanted heart: [place] heart Qualified Code(s): I25.118 - Atherosclerotic heart disease of [place] coronary artery with other forms of angina pectoris Category: Medical Code(s): I25.10 - Atherosclerotic heart disease of [place] coronary artery without angina pectoris Plan 1. A. fib with RVR, new onset -IV heparin and diltiazem -possibly due to missed metoprolol doses -check Chest CTA to rule out PE -Switch amlodipine (home medication) to diltiazem for better heart rhythm control 2. CAD -Troponins normal but having episodes of chest pain despite 3 antianginal medications (amlodipine, metoprolol and ranolazine) -Recent episodes of chest discomfort for which patient takes nitroglycerin daily -If chest CTA negative for PE then consider left heart catheterization -Continue prasugrel and metoprolol 3. HFrEF with EF of 45% -BNP is 2030 -Likely exacerbated by new onset A-fib with RVR -Dual-chamber ICD in place -GDMT includes ARB, BB -will add spironolactone and jardiance 4. Tobacco use/COPD -Cessation recommend 5. Hyperlipidemia -LDL 112 -Start statin therapy 6. Hypertension -Controlled with combination of beta-sallie, ARB and calcium channel sallie Chest CTA negative for PE. Start short acting diltiazem orally for one dose and discontinue IV. I don't want to use diltiazem due to cardiomyopathy. Restart metoprolol therapy. Add spironolactone and jardiance for GDMT of HFrEF. Discussed case with Dr. Gómez and he would recommend no cath at this time but prefer SHANIKA/CArdioversion and enforcing compliance with meds. Start eliquis 5 mg BID and stop heparin 30 min later. Monitor overnight and if he doesn't convert spontaneously then SHANIKA/Cardioversion tomorrow.
[2024-12-29] MEDS: RANOLAZINE 500MG ER TABLET 1000 MG PO ×2 (09:04→20:53)
[2024-12-29] MEDS: IRBESARTAN 300MG TABLET 300 MG PO (09:04)
[2024-12-29] MEDS: PRASUGREL 10MG TAB 10 MG PO (09:05)
[2024-12-29] MEDS: ASPIRIN EC 81MG TABLET 81 MG PO (09:06)
[2024-12-29] MEDS: METOPROLOL SUCCINATE XL 50MG TABLET 100 MG PO (09:06)
[2024-12-29] MEDS: 0.9 % SODIUM CHLORIDE 50 ML VIAL IV (10:03)
[2024-12-29] MEDS: SODIUM CHLORIDE 0.9% 10ML SYR (RAD ONLY) 10 ML IV (10:03)
[2024-12-29] MEDS: IOPAMIDOL-370 (76%);100ML BOTTLE 80 ML IV (10:03)
[2024-12-29 10:54] LABS: Hemoglobin A1C 5.5 % (4.0-6.0)
--- NOTE | 2024-12-29 11:32 | P.PN_ITS ---
<Statement entered by Javan Adams MD - 01/01/25 12:05> Agree with plan of care as outlined by the [facility]. Subjective *Date: 12/29/24 *Time: 11:32 Interval history: Patient is doing well this morning. Lying in bed, denies chest pain, shortness of breath, fever, chills, abdominal pain. Patient states that his heart feels better than it did yesterday. Plans for CTA for PE protocol and possible cardioversion tomorrow if patient does not convert to sinus rhythm. Medical Exam Vital signs and Labs for Last 24 Hours: Vital Signs Temp Pulse Resp BP Pulse Ox O2 Del Method 12/29/24 10:01 72 18 121/69 93 L 12/29/24 09:00 Room Air 12/29/24 09:00 59 L 18 122/74 93 L 12/29/24 08:19 97.5 F L 77 19 122/69 92 L Room Air 12/29/24 08:00 17 93 L Room Air 12/29/24 08:00 79 12/29/24 07:00 70 17 115/66 92 L Room Air 12/29/24 07:00 Room Air 12/29/24 06:30 72 18 123/74 92 L Room Air 12/29/24 06:01 72 16 127/82 91 L Room Air 12/29/24 05:01 71 18 117/72 95 Room Air 12/29/24 05:00 Room Air 12/29/24 04:30 75 16 115/70 94 L Room Air 12/29/24 04:00 93 L Room Air 12/29/24 04:00 68 12/29/24 04:00 98.2 F 69 18 105/51 L 93 L Room Air 12/29/24 03:01 68 19 118/77 92 L Room Air 12/29/24 03:00 Room Air 12/29/24 02:24 95 Room Air 12/29/24 02:24 90 12/29/24 02:22 98.1 F 73 19 114/74 95 Room Air Intake and Output 12/28/24 12/29/24 12/29/24 23:59 07:59 15:59 Intake Total 602.053 / 602.053 Output Total 200 / 200 Balance 402.053 / 402.053 Intake: Intake, Oral Amount 446 / 446 Intake, Total IV Amount 156.053 / 156.053 Heparin Sodium,Porcine/D5w 500 156.053 / 156.053 ml @ 1,540 UNITS/HR 30.8 mls/hr IV .[id number] [facility] Rx#:[id number] Output: Output, Urine Amount 200 / 200 Other: Weight 101 kg Patient Weight 12/29/24 23:59 Weight 101 kg Laboratory Results - last 24 hr 12/29/24 05:20: PT 11.5, INR 1.04, APTT 80.9 H*, Sodium 139, Potassium 3.7, Chloride 107, Carbon Dioxide 22, Anion Gap 13.7, BUN 22 H, Creatinine 1.20, Estimated Creat Clear 85, Estimated GFR 60, Est GFR ( Amer) 73, Glucose 117 H, Hemoglobin A1c 5.5, Lactate 0.8, Calcium 8.8, Total Bilirubin 0.3, AST 23, ALT 15, Alkaline Phosphatase 74, Troponin I < 0.01, NT-Pro-B Natriuret Pep 2030 H, Total Protein 6.4, Albumin 3.4 L, Globulin 3.0, Albumin/Globulin Ratio 1.1, Triglycerides 140, Cholesterol 179, LDL Cholesterol Direct 112.33, VLDL Cho lesterol 28, HDL Cholesterol 26 L, Cholesterol/HDL Ratio 6.9 H, TSH 1.24 I & O for Labs for Last 24 Hours: Intake & Output 12/26/24 12/27/24 12/28/24 12/29/24 23:59 23:59 23:59 23:59 Intake Total 602.053 / 602.053 Output Total 200 / 200 Balance 402.053 / 402.053 Weight 101 kg Constitutional: Present no acute distress, obese, chronically ill appearing and cooperative Head: Present atraumatic Eyes: Present as per HPI ENT: Present normal exam Neck: Present normal inspection Respiratory: Present prolonged expiratory phase, wheezes (Inspiratory and expiratory), normal respiratory effort and symmetric chest movement Cardiac: Present Regular Rate Comment:: Atrial fibrillation with PVCs GI: Present soft and normal bowel sounds; Absent distention or tenderness Rectal (male): Present deferred (male): Present deferred Extremities: Present normal inspection and normal capillary refill; Absent edema Skin: Present intact and dry; Absent erythema or rash Neuro: Present Grossly Intact, alert, awake and oriented x 3 Assessment and Plan *Assessment and plan (1) Atrial fibrillation with RVR: Status: Acute Category: Medical Code(s): I48.91 - Unspecified atrial fibrillation (2) HFrEF (heart failure with reduced ejection fraction): Status: Acute Category: Medical Code(s): I50.20 - Unspecified systolic (congestive) heart failure (3) COPD (chronic obstructive pulmonary disease): Status: Chronic Qualifiers: COPD type: emphysema Emphysema type: other Qualified Code(s): J43.8 - Other emphysema Category: Medical Code(s): J44.9 - Chronic obstructive pulmonary disease, unspecified (4) Tobacco dependence syndrome: Status: Chronic Category: Medical Code(s): F17.200 - Nicotine dependence, unspecified, uncomplicated (5) PAD (peripheral artery disease): Status: Chronic Category: Medical Code(s): I73.9 - Peripheral vascular disease, unspecified (6) HLD (hyperlipidemia): Status: Chronic Qualifiers: Hyperlipidemia type: mixed hyperlipidemia Qualified Code(s): E78.2 - Mixed hyperlipidemia Category: Medical Code(s): E78.5 - Hyperlipidemia, unspecified (7) Essential hypertension: Status: Chronic Category: Medical Code(s): I10 - Essential (primary) hypertension (8) CAD (coronary artery disease): Status: Chronic Qualifiers: Associated angina: with stable angina Coronary Disease-Associated Artery/Lesion type: [place] artery [place] vs. transplanted heart: [place] heart Qualified Code(s): I25.118 - Atherosclerotic heart disease of [place] coronary artery with other forms of angina pectoris Category: Medical Code(s): I25.10 - Atherosclerotic heart disease of [place] coronary artery without angina pectoris Plan Mr. Thurman is a 69-year-old male who originally presented to [facility] in [facility] last night due to chest pain and heart flutters. Workup at [place] was obtained and showed patient was in A-fib RVR, troponin negative. Patient does have an extensive cardiac medical history including A- fib, SVT, HFrEF, LHC with JEANNE, GERD, COPD, obesity, tobacco dependence, PAD, CAD, and pacemaker. After discussion at [place] it was determined that patient could be transferred to [facility] for further evaluation by Dr. Gómez (patient's camp counselor). Patient was transferred to our facility and admitted to the ICU. Hospital medicine was consulted for admission, Dr. Rivas agreed to admit the patient for further monitoring and management. Plan of care as follows: #Atrial fibrillation with RVR, new onset ? Patient found to have new onset A-fib with RVR, patient was originally placed on a diltiazem drip and heparin drip. Patient is now rate controlled heart rate in the 60s to 70s. Patient continues to stay in atrial fibrillation. Patient transitioned from diltiazem drip to diltiazem p.o. x 1 dose. Patient does take metoprolol succinate 100 mg at bedtime, he does state he has missed multiple doses recently. Will continue metoprolol 100 mg daily. ? Chest CTA to rule out PE was performed, negative for PE. ? Cardiology consulted for further recommendations, plans for SHANIKA/cardioversion tomorrow if patient does not convert on his own. ? Troponins remain negative, no leukocytosis, no anemia, no electrolyte abnormalities. Baseline kidney function creatinine, 1.20. ? CBC, CMP, magnesium ordered for the a.m. #CAD ?Patient endorses taking multiple nitros in the last few weeks. States he has had intermittent chest pain/heart flutters. Patient does take amlodipine, metoprolol, and ranolazine at home. ?Will transition from heparin IV to Eliquis 5 mg twice daily per cardiology's recommendation. Continue aspirin 81 mg daily. #HFrEF (EF of 40%) ?Echo done today shows mild to moderate reduced LV, 40%. Severe hypokinesis of the distal and apical LV burgess. No valvular stenosis or regurgitation noted. ?Patient has dual-chamber ICD in place. BNP elevated at 2030. Per cardiology will add spironolactone and Jardiance. Patient currently on ARB and BB. #Tobacco use disorder #COPD ? Patient states he is a daily smoker approximately 1 PPD. Discussed smoking cessation, nicotine patches ordered as needed. ?Patient lungs have inspiratory and expiratory wheezing. Chest x-ray shows no acute findings. Patient chest CTA is notable for cluster of less than 5 mm in size nodule in the posterior right upper lobe (favor postinfectious or inflammatory). DuoNebs every 6 hours as needed ordered, continue Trelegy inhaler. Encouraged incentive spirometer use. Patient denies cough, congestion, fever, chills. #Hyperlipidemia #Hypertension ? Patient elevated LDL, 112. Not currently on a statin therapy. Allergy to Crestor?myalgias. ? Patient has history of hypertension, currently well-controlled. BP 121/69. #Mood disorder: Continue Wellbutrin 150 mg daily. Full code Cardiac diet Ambulate as tolerated VTE?heparin drip
[2024-12-29] MEDS: APIXABAN 5MG TABLET 5 MG PO ×2 (11:40→20:53)
[2024-12-29] MEDS: EMPAGLIFLOZIN 10MG TABLET 10 MG PO (11:40)
[2024-12-29] MEDS: SPIRONOLACTONE 25MG TABLET 25 MG PO (11:40)
[2024-12-29 11:55] LABS: Troponin I < 0.01 ng/ml (0.00-0.034)
[2024-12-29] MEDS: FLUTICASONE/UMECLIDIN/VILANTER 100/62.5/25MCG INHALER 1 PUFF IH (12:09)
[2024-12-29 14:06] LABS: PTT Heparin (inpatient only) 35.9 Seconds (50-75)
[2024-12-29] MEDS: METOPROLOL SUCCINATE XL 100MG TABLET 100 MG PO (20:53)
--- NOTE | 2024-12-29 22:38 | PC.NURSE ---
communication order received to move pt to med-surg/tele. Иван ColladoCommissary Representative notified.
[2024-12-30] VITALS: BP 135/71; PULSE 72; PULSE 86; RESP 16; TEMP 36.8; O2SAT 95
--- NOTE | 2024-12-30 01:03 | PC.NURSE ---
Patient transferred to MedSurg unit from ICU unit @01:03am
--- NOTE | 2024-12-30 01:09 | PC.NURSE ---
report called to Katelyn WEISS @[phone]
--- NOTE | 2024-12-30 01:18 | PC.NURSE ---
report given to Gerald SRNA from Jes SRNA @01:10
[2024-12-30 01:21] VITALS: BP 117/70; PULSE 82; RESP 18; TEMP 36.9; O2SAT 96
--- NOTE | 2024-12-30 01:24 | PC.NURSE ---
Pt arrived from ICU to room 202 about 01:20 this morning, Afib rate of 77, No c/o of pain or discomfort. Pt has the Call light vitals are stable. 2 IV sites, 20 Gauge in the Right wrist and 20 Gauge in the Left A/C. MANNY WEST RN
[2024-12-30 01:32] VITALS: PULSE 76; O2SAT 96
--- NOTE | 2024-12-30 03:39 | PC.NURSE ---
PT is alert and oriented x 4. Pt is on room air. Pt is Npo. For possible procedure in the am of a Cardioversion if pt does not convert over night. At this Time Pt is Afib of mid 70's. Lungs sounds are wheezing indicatory and expository. Pt is resting and has the call light with in reach. no complaints at this time. MANNY WEST RN
[2024-12-30 04:00] VITALS: BP 126/75; PULSE 64; PULSE 90; RESP 16; TEMP 36.9; O2SAT 94; BMI 33.2
[2024-12-30 08:00] VITALS: BP 106/77; PULSE 110; PULSE 58; RESP 18; TEMP 36.4; O2SAT 97
[2024-12-30 09:00] LABS: Hematocrit 40.6 % (42.0-52.0); Hemoglobin 13.4 g/dL (14.1-18.0); Immature Granulocytes % 0.4 %; Mean Corpuscular HGB Conc 33.0 g/dL (31.8-35.4); Mean Corpuscular Hemoglobin 30.2 pg (27.0-31.2); Mean Corpuscular Volume 91.6 fl (80-94); Nucleated Red Blood Cells % 0 %; Platelet Count 258 K/mm3 (142-424); Red Blood Count 4.43 M/mm3 (4.60-6.20); Red Cell Distribution Width-SD 45.1 fL; White Blood Count 8.1 K/mm3 (4.8-10.8)
[2024-12-30] MEDS: ASPIRIN EC 81MG TABLET 81 MG PO (09:07)
[2024-12-30] MEDS: APIXABAN 5MG TABLET 5 MG PO (09:07)
[2024-12-30] MEDS: IRBESARTAN 300MG TABLET 300 MG PO (09:07)
[2024-12-30] MEDS: EMPAGLIFLOZIN 10MG TABLET 10 MG PO (09:08)
[2024-12-30] MEDS: RANOLAZINE 500MG ER TABLET 1000 MG PO (09:08)
[2024-12-30] MEDS: SPIRONOLACTONE 25MG TABLET 25 MG PO (09:08)
--- NOTE | 2024-12-30 09:16 | P.PN_ITS ---
Subjective Subjective Date: 12/30/24 Time: 08:00 Principal diagnosis: New onset A-fib RVR Interval history: Patient doing well this morning. He denies chest pain or shortness of breath. He is requesting to go home. Patient remains in A-fib but is rate controlled with heart rate 80-100. Exam Data for Last 24 hours Vital signs and Labs for Last 24 Hours: Temp Pulse Resp BP Pulse Ox O2 Del Method 97.6 F 58 L 18 106/77 L 97 Room Air 12/30/24 08:00 12/30/24 08:00 12/30/24 08:00 12/30/24 08:00 12/30/24 08:00 12/30/24 08:00 Laboratory Results - last 24 hr 12/29/24 05:20: Hemoglobin A1c 5.5 12/29/24 11:24: Troponin I < 0.01 12/29/24 13:45: APTT 35.9 L 12/30/24 08:50: WBC 8.1, RBC 4.43 L, Hgb 13.4 L, Hct 40.6 L, MCV 91.6, MCH 30.2, MCHC 33.0, RDW 13.3, Plt Count 258, MPV 8.7, Neut % (Auto) 63.2, Lymph % (Auto) 24.9, [place] % (Auto) 8.3, Eos % (Auto) 3.0, Baso % (Auto) 0.2, Neut # (Auto) 5.1, Lymph # (Auto) 2.0, [place] # (Auto) 0.7, Eos # (Auto) 0.2, Baso # (Auto) 0.0 I & O for Last 24 hours: Intake & Output 12/27/24 12/28/24 12/29/24 12/30/24 23:59 23:59 23:59 23:59 Intake Total 1172.570 / 1172.570 Output Total 1450 / 1450 Balance -277.430 / -277.430 Weight 222 lb 10.67 oz 219 lb 4.8 oz Constitutional Constitutional: no acute distress *Routine Respiratory Exam Respiratory: Present CTA bilaterally and symmetric chest movement *Routine Cardiovascular Exam Cardiovascular: Present RRR, Normal S1 and Normal S2 *Routine Abdominal Exam Abdominal: Present soft and normoactive bowel sounds; Absent tenderness *Routine Extremities Exam Extremities: Present full ROM and normal capillary refill; Absent edema *Routine Skin Exam Skin: Present intact, dry and warm Detailed Neck Exam: Thyroids Thyroid: Absent bruit Progress Note: A&P Assessment and plan (1) Atrial fibrillation with RVR: Status: Acute (2) HFrEF (heart failure with reduced ejection fraction): Status: Acute (3) COPD (chronic obstructive pulmonary disease): Status: Chronic (4) Tobacco dependence syndrome: Status: Chronic (5) PAD (peripheral artery disease): Status: Chronic (6) HLD (hyperlipidemia): Status: Chronic (7) Essential hypertension: Status: Chronic (8) CAD (coronary artery disease): Status: Chronic Assessment and Plan Assessment and Plan for All Diagnoses:: 1. A. fib with RVR, new onset - Rate controlled this morning - CTA chest negative for PE - Continue metoprolol succinate 100 mg p.o. daily and Eliquis 5 mg p.o. twice daily 2. CAD - Troponins normal but had episodes of chest pain despite 3 antianginal medications (amlodipine, metoprolol and ranolazine) - Per Dr. Gómez-no plan for left heart catheterization at this time due to patient history of noncompliance with medication. Will consider outpatient ischemic evaluation - Patient denies chest pain this morning. - Continue Plavix and Eliquis. Continue metoprolol. Patient reports he is intolerant to statins and injectables. 3. HFrEF with EF of 40% -BNP 2030 on admission -Likely exacerbated by new onset A-fib with RVR -Dual-chamber ICD in place -GDMT includes ARB, BB, Aldactone and Jardiance 4. Tobacco use/COPD -Cessation recommend 5. Hyperlipidemia -LDL 112 -Reports unable to take statins or injectables. 6. Hypertension -Controlled with combination of beta-sallie and ARB CV summary 12/30/2024: Patient remains in A-fib but is rate controlled. He denies chest pain or shortness of breath this morning. Per Dr. Shabazz, patient is CV stable for discharge home. We will consider cardioversion on outpatient basis. Patient will also need an ischemic evaluation on an outpatient basis. Please have patient follow-up in cardiology clinic in 1 week for reevaluation. Continue below listed medications. Cardiac meds for discharge: Metoprolol succinate 100 mg p.o. daily Plavix 75mg po daily Eliquis 5 mg p.o. BID Jardiance 10 mg p.o. daily Irbesartan 300 mg p.o. daily Ranexa 1000 mg p.o. twice daily Aldactone 25 mg p.o. day
--- NOTE | 2024-12-30 09:57 | P.DS_ITS ---
<Statement entered by Javan Adams MD - 01/01/25 11:55> Agree with plan of care as outlined by the [employer] EXP[employer]. General Admission date:: 12/29/24 Discharge date: 12/30/24 HPI HPI HPI: Patient is a 69-year-old male with past medical history of COPD, severe CAD, hypertension, tobacco use, hyperlipidemia who presents to the hospital due to chest pain and A-fib with RVR. Patient at time of my evaluation denies nausea vomiting diarrhea constipation dysuria fevers and chills. Patient mentions he follows up with Dr. Gómez. He is currently taking aspirin and effient, denies history of atrial fibrillation. He has pacemaker. Hospital Course Hospital Course Hospital Course: Mr. Thurman is a 69-year-old male who originally presented to [facility] in [facility] Saturday night due to chest pain and heart flutters. Workup at [facility] was obtained and showed patient was in A-fib RVR, troponin negative. Patient does have an extensive cardiac medical history including A-fib, SVT, HFrEF, LHC with JEANNE, GERD, COPD, obesity, tobacco dependence, PAD, CAD, and pacemaker. After discussion at [facility] it was determined that patient could be transferred to [facility] for further evaluation by Dr. Gómez (patient's e merchant). Patient was transferred to our facility and admitted to the ICU. Hospital medicine was consulted for admission, Dr. Rivas agreed to admit the patient for further monitoring and management. Plan of care as follows: #Atrial fibrillation with RVR, new onset ? Patient found to have new onset A-fib with RVR, patient was originally placed on a diltiazem drip and heparin drip. Patient is now rate controlled heart rate in the 60s to 70s. Patient continues to stay in atrial fibrillation. Patient transitioned from diltiazem drip to diltiazem p.o. x 1 dose. Patient does take metoprolol succinate 100 mg at bedtime, he does state he has missed multiple doses recently. Will continue metoprolol 100 mg daily. ? Chest CTA to rule out PE was performed, negative for PE. ? Cardiology consulted for further recommendations, plans for outpatient follow- up with possible SHANIKA/cardioversion. Patient is still currently in A-fib but is rate controlled at this time. ? Troponins remain negative, no leukocytosis, no anemia, no electrolyte abnormalities. Baseline kidney function creatinine, 1.20. #CAD ? Patient endorses taking multiple nitros in the last few weeks. States he has had intermittent chest pain/heart flutters. ? Transitioned from heparin IV to Eliquis 5 mg twice daily per cardiology's recommendation. ? At discharge patient will continue metoprolol 100 mg daily, olmesartan 40 mg daily, aspirin 81 mg daily, and ranolazine 1000 mg twice daily. Patient will start Plavix 75 mg daily, Eliquis 5 mg twice daily, Jardiance 10 mg daily, Aldactone 25 mg daily. Patient will stop amlodipine 10 mg daily. Patient should follow-up with cardiology in the next week. #HFrEF (EF of 40%) ?Echo done today shows mild to moderate reduced LV, 40%. Severe hypokinesis of the distal and apical LV burgess. No valvular stenosis or regurgitation noted. ?Patient has dual-chamber ICD in place. BNP elevated at 2030. Per cardiology will add spironolactone and Jardiance. Patient currently on ARB and BB. Patient appeared euvolemic during admission. #Tobacco use disorder #COPD ? Patient states he is a daily smoker approximately 1 PPD. Discussed smoking cessation. ? Patient lungs have expiratory wheezing day of discharge. Chest x-ray shows no acute findings. Patient chest CTA is notable for cluster of less than 5 mm in size nodule in the posterior right upper lobe (favor postinfectious or infl ammatory). Patient should continue Trelegy inhaler daily and albuterol Hailer as needed at discharge. Encouraged incentive spirometer use. Patient denies cough, congestion, fever, chills. #Hyperlipidemia #Hypertension ? Patient elevated LDL, 112. Not currently on a statin therapy. Allergy to Crestor?myalgias. May qualify for injectable, discussed at cardiology follow- up. ? Patient has history of hypertension, currently well-controlled. BP 121/69. #Mood disorder: Continue Wellbutrin 150 mg daily. Total time spent on discharge 38 minutes in counseling, documentation, chart review, and direct care with patient. Exam Data for Last 24 hours Vital signs and Labs for Last 24 Hours: Temp Pulse Resp BP Pulse Ox O2 Del Method 97.6 F 58 L 18 106/77 L 97 Room Air 12/30/24 08:00 12/30/24 08:00 12/30/24 08:00 12/30/24 08:00 12/30/24 08:00 12/30/24 08:00 Laboratory Results - last 24 hr 12/29/24 05:20: Hemoglobin A1c 5.5 12/29/24 11:24: Troponin I < 0.01 12/29/24 13:45: APTT 35.9 L 12/30/24 08:50: WBC 8.1, RBC 4.43 L, Hgb 13.4 L, Hct 40.6 L, MCV 91.6, MCH 30.2, MCHC 33.0, RDW 13.3, Plt Count 258, MPV 8.7, Neut % (Auto) 63.2, Lymph % (Auto) 24.9, Dolores % (Auto) 8.3, Eos % (Auto) 3.0, Baso % (Auto) 0.2, Neut # (Auto) 5.1, Lymph # (Auto) 2.0, Dolores # (Auto) 0.7, Eos # (Auto) 0.2, Baso # (Auto) 0.0 I & O for Last 24 hours: Intake & Output 12/27/24 12/28/24 12/29/24 12/30/24 23:59 23:59 23:59 23:59 Intake Total 1172.570 / 1172.570 Output Total 1450 / 1450 Balance -277.430 / -277.430 Weight 101 kg 99.473 kg Constitutional Constitutional: no acute distress, obese and cooperative *Routine HEENT Exam Head: Present normocephalic Eye: Present EOMI ENT: Present mucous membranes moist *Routine Neck Exam Neck: Present supple *Routine Respiratory Exam Respiratory: Present prolonged expiratory phase, wheezes (Expiratory), normal respiratory effort and symmetric chest movement *Routine Cardiovascular Exam Cardiovascular: Present RRR, Normal S1 and Normal S2; Absent murmur *Routine Abdominal Exam Abdominal: Present soft and normoactive bowel sounds; Absent tenderness or distended *Routine Extremities Exam Extremities: Present full ROM and normal capillary refill; Absent edema *Routine Skin Exam Skin: Present intact, dry and warm; Absent erythema or rash *Routine Neurological Exam Neurological: Present alert, oriented X3, vision grossly intact, hearing grossly intact and normal speech Routine Psychiatric Exam Psychiatric: Present normal affect Detailed Neck Exam: Thyroids Thyroid: Absent bruit Results Data Completed and Pending Labs on day of discharge: Labs from last 24 hours 12/30/24 12/29/24 12/29/24 08:50 13:45 11:24 WBC 8.1 RBC 4.43 L Hgb 13.4 L Hct 40.6 L MCV 91.6 MCH 30.2 MCHC 33.0 RDW 13.3 Plt Count 258 MPV 8.7 Neut % (Auto) 63.2 Lymph % (Auto) 24.9 Dolores % (Auto) 8.3 Eos % (Auto) 3.0 Baso % (Auto) 0.2 Neut # (Auto) 5.1 Lymph # (Auto) 2.0 Dolores # (Auto) 0.7 Eos # (Auto) 0.2 Baso # (Auto) 0.0 APTT 35.9 L Hemoglobin A1c Troponin I < 0.01 12/29/24 05:20 WBC RBC Hgb Hct MCV MCH MCHC RDW Plt Count MPV Neut % (Auto) Lymph % (Auto) Dolores % (Auto) Eos % (Auto) Baso % (Auto) Neut # (Auto) Lymph # (Auto) Dolores # (Auto) Eos # (Auto) Baso # (Auto) APTT Hemoglobin A1c 5.5 Troponin I DS: Diagnosis Discharge Diagnosis (1) Atrial fibrillation with RVR: Status: Acute Code(s): I48.91 - Unspecified atrial fibrillation (2) HFrEF (heart failure with reduced ejection fraction): Status: Acute Code(s): I50.20 - Unspecified systolic (congestive) heart failure (3) COPD (chronic obstructive pulmonary disease): Status: Chronic Code(s): J44.9 - Chronic obstructive pulmonary disease, unspecified Qualifiers: COPD type: emphysema Emphysema type: other Qualified Code(s): J43.8 - Other emphysema (4) Tobacco dependence syndrome: Status: Chronic Code(s): F17.200 - Nicotine dependence, unspecified, uncomplicated (5) PAD (peripheral artery disease): Status: Chronic Code(s): I73.9 - Peripheral vascular disease, unspecified (6) HLD (hyperlipidemia): Status: Chronic Code(s): E78.5 - Hyperlipidemia, unspecified Qualifiers: Hyperlipidemia type: mixed hyperlipidemia Qualified Code(s): E78.2 - Mixed hyperlipidemia (7) Essential hypertension: Status: Chronic Code(s): I10 - Essential (primary) hypertension (8) CAD (coronary artery disease): Status: Chronic Code(s): I25.10 - Atherosclerotic heart disease of [place] coronary artery without angina pectoris Qualifiers: Associated angina: with stable angina Coronary Disease-Associated Artery/Lesion type: [place] artery [place] vs. transplanted heart: [place] heart Qualified Code(s): I25.118 - Atherosclerotic heart disease of [place] coronary artery with other forms of angina pectoris Meds Home Medications and Allergies Home Medications ?Medication ?Instructions ?Recorded ?Confirmed ?Type ascorbic acid (vitamin C) 1,000 mg 1,000 mg PO DAILY 0 04/10/17 12/29/24 History tablet aspirin 81 mg tablet,delayed 81 mg PO DAILY 04/10/17 1 History release (Adult Low Dose Aspirin) bupropion HCl 150 mg tablet,12 hr 150 mg PO DAILY 03/2512/29/24 History sustained-release fluticasone fur. 100 mcg-umeclid 1 inh inhalation ROSE Y 10/19/21 12/29/24 History 62.5 mcg-vilant 25 mcg inhalat.powder (Trelegy Ellipta) nitroglycerin 0.4 mg sublingual 0.4 mg sublingual Q5MI [employer] REPAIRER PRN chest 09/17/23 12/29/24 History tablet (Nitrostat) pain olmesartan 40 mg tablet 40 mg PO DAILY 09/17/23 1010/16 History ranolazine 1,000 mg 1,000 mg PO BID 12/29/2410/16 History tablet,extended release,12 hr apixaban 5 mg tablet (Eliquis) 5 mg PO BID #60 tabs Rx clopidogrel 75 mg tablet 75 mg PO DAILY 30 days #30 t abs 12/30/24 Rx empagliflozin 10 mg tablet 10 mg PO DAILY 30 days #30 tabs 12/30/24 Rx (Jardiance) metoprolol succinate 100 mg 100 mg PO HS 30 days #30 t abs 12/30/24 Rx tablet,extended release 24 hr spironolactone 25 mg tablet 25 mg PO DAILY 30 days #30 tabs 12/30/24 Rx New Prescriptions to Start Prescriptions: apixaban [Eliquis] Daina Graves clopidogrel Daina Graves empagliflozin [Jardiance] Daina Graves metoprolol succinate Daina Graves spironolactone Daina Graves Allergies Allergy/AdvReac Type Severity Reaction Status Date / Time rosuvastatin (From Crestor) Allergy Unknown Unknown Verified 11/02/24 10:29 allergy reaction Discharge Plan Disposition Patient Disposition: Home, Self-Care Condition: Good Discharge Order Discharge Orders: Discharge Order (Routine); Ordered 12/30/24 Ordered By: Daina Graves Follow up Plan Follow up with: WM Iain Morrison MD [Primary Care Provider, Medical] - 01/05/25 2:00 pm Serge Quiñonez MD [Staff Physician, Cardiology] - 01/18/25 1:00 pm Prescriptions/Medication Reconciliation: New clopidogrel 75 mg Tablet 75 mg PO DAILY 30 Days Qty: 30 0RF spironolactone 25 mg Tablet 25 mg PO DAILY 30 Days Qty: 30 0RF Eliquis 5 mg Tablet 5 mg PO BID Qty: 60 0RF Jardiance 10 mg Tablet 10 mg PO DAILY 30 Days Qty: 30 0RF metoprolol succinate 100 mg Tablet Extended Release 24 Hr 100 mg PO HS 30 Days Qty: 30 0RF Continued aspirin [Adult Low Dose Aspirin] 81 mg tablet,delayed release (DR/EC) 81 mg PO DAILY bupropion HCl 150 mg tablet extended release 12 hr 150 mg PO DAILY ascorbic acid (vitamin C) 1,000 mg tablet 1,000 mg PO DAILY Trelegy Ellipta 100-62.5-25 mcg blister with device 1 inh IH DAILY ranolazine 1,000 mg tablet extended release 12 hr 1,000 mg PO BID nitroglycerin [Nitrostat] 0.4 mg tablet, sublingual 0.4 mg sublingual Q5MINP PRN (Reason: chest pain) Rx Instructions: do not exceed 3 doses per episode olmesartan 40 mg tablet 40 mg PO DAILY Discontinued amlodipine 10 mg tablet 10 mg PO DAILY Qty: 90 3RF metoprolol succinate 100 mg tablet extended release 24 hr 100 mg PO HS prasugrel HCl 10 mg tablet 10 mg PO DAILY Patient Comments: TAKE ONE (1) TABLET EVERY DAY BY ORAL ROUTE FOR 90 DAYS. Problem Reconciliation Problems Reviewed?: Yes Patient Discharge Instructions ACTIVITY: Continue current activity DIET: continue same diet and cardiac Patient Instructions: Atrial Fibrillation, DI for Atrial Fibrillation Print Language: Tunisian Providers Primary Care Provider: WM Iain Morrison Admit Provider: Javan Adams Attending Provider: Javan Adams
[2024-12-30] MEDS: CLOPIDOGREL 75MG TAB 75 MG PO (10:06)
[2024-12-30 12:18] LABS: Alanine Aminotransferase 18 U/L (12-78); Albumin Level 4.0 g/dl (3.5-5.0); Albumin/Globulin Ratio 1.5 (1.1-1.8); Alkaline Phosphatase 73 U/L (38-126); Anion Gap 15.2 mEq/L (5-15); Aspartate Amino Transferase 23 U/L (17-59); Bilirubin,Total 0.6 mg/dl (0.2-1.3); Blood Urea Nitrogen 19 mg/dl (9-20); Calcium 8.8 mg/dl (8.4-10.2); Carbon Dioxide 22 mmol/L (22.0-30.0); Chloride 106 mmol/L (98-107); Creatinine Clearance Estimated 84 mL/min (50-200); Creatinine,Serum 1.20 mg/dl (0.66-1.25); Estimated Glomerular Filt Rate 60 ml/min (>60); GFR (African American) 73 ML/MIN (>60); Globulin 2.7 g/dL (1.3-3.2); Glucose 65 mg/dl (74-100); Magnesium 1.9 mg/dl (1.6-2.3); Potassium 4.2 mmoL/L (3.5-5.1); Sodium 139 mmol/L (136-145); Total Protein,Serum 6.7 g/dl (6.3-8.2)
--- NOTE | 2024-12-31 10:20 | SW/DCPLANNER ---
Patient was readmitted back into the hospital. I will do a follow up phone call when he DC Uriah Varma
== END 2024-12-30 12:24 | disposition home or self-care (01) ==
LOC: ICU 12-30 00:20 → 2ND 12-30 07:18 → ICU 01-01 07:10
PROVIDERS: Internal Medicine; Admitting Provider Student in an Organized Health Care Education/Training Program; PCP Family Medicine; Visit Provider Student in an Organized Health Care Education/Training Program
PROC: (CPT 93312; principal; 2024-12-30 12:00)
PROC: 5A2204Z Restoration of Cardiac Rhythm, Single (ICD-10-PCS; 2024-12-30 12:00)
DX: I48.20 Chronic atrial fibrillation, unspecified (principal); I50.22 Chronic systolic (congestive) heart failure; I11.0 Hypertensive heart disease with heart failure; J43.8 Other emphysema; E66.9 Obesity, unspecified; I73.9 Peripheral vascular disease, unspecified; I25.118 Atherosclerotic heart disease of native coronary artery with other forms of angina pectoris; E78.2 Mixed hyperlipidemia; F39 Unspecified mood [affective] disorder; I42.9 Cardiomyopathy, unspecified; K21.9 Gastro-esophageal reflux disease without esophagitis; F17.210 Nicotine dependence, cigarettes, uncomplicated; Z68.33 Body mass index [BMI] 33.0-33.9, adult; Z95.810 Presence of automatic (implantable) cardiac defibrillator; Z95.5 Presence of coronary angioplasty implant and graft; Z79.02 Long term (current) use of antithrombotics/antiplatelets; Z79.82 Long term (current) use of aspirin; Z79.899 Other long term (current) drug therapy; Z88.8 Allergy status to other drugs, medicaments and biological substances; Z71.6 Tobacco abuse counseling; Z56.0 Unemployment, unspecified; Z79.01 Long term (current) use of anticoagulants; R91.8 Other nonspecific abnormal finding of lung field; R94.31 Abnormal electrocardiogram [ECG] [EKG]
CPT/HCPCS: 36415; 71275; 80053; 80061; 83036; 83605; 83735; 83880; 84443; 84484; 85025; 85610; 85730; 93306; 94640; G0378; J1644; J2250; Q9957; Q9967

== ENCOUNTER 2024-12-30 21:11 | Observation (INO) | payer MEDICARE, OTHER, SELFPAY ==
--- NOTE | 2024-12-30 21:12 | ECG_ITS ---
APPROVED REPORT Exam: Resting ECG HR:80 bpm ECG Measurements Heart Rate 80 AXES MD 170 P 78 QRSd 129 QRS 80 QT 393 T 80 QTc 429 Conclusion SINUS RHYTHM MODERATE INTRAVENTRICULAR CONDUCTION DELAY [110+ ms QRS DURATION] BORDERLINE ECG UNCONFIRMED REPORT Electronically signed by : DRISS THOMPSON, 12/31/2024 00:32:48
--- NOTE | 2024-12-30 21:15 | XR_ITS ---
PROCEDURE INFORMATION: Exam: XR Chest Exam date and time: 12/30/2024 9:20 PM Age: 69 years old Clinical indication: Pain; Chest pressure; Additional info: Chest pain TECHNIQUE: Imaging protocol: Radiologic exam of the chest. Views: 1 view. COMPARISON: CT ANGIO CHEST PE PROTOCOL 12/29/2024 9:47 AM FINDINGS: Tubes, catheters and devices: Dual lead pacemaker device is identified. Lungs: No acute infiltrates.. Pleural spaces: Unremarkable. No pleural effusion. No pneumothorax. Heart/Mediastinum: The heart size is within normal limits. Bones/joints: Unremarkable. IMPRESSION: No acute infiltrates..
--- NOTE | 2024-12-30 21:17 | ED_ITS ---
Discharge Plan Disposition Patient Disposition: Admitted Condition: Fair Clinical Impressions Clinical Impression: Unstable angina Discharge ED Provider: Kendall Kirkpatrick HPI General Chief Complaint: Chest Pain Stated Complaint: Chest Pain Time Seen by Provider: 12/30/24 21:15 History of Present Illness HPI narrative: You this is a 69-year-old male patient, with past medical history of hypertension, hyperlipidemia, peripheral arterial disease, tobacco abuse, coronary artery disease, COPD, atrial fibrillation, and heart failure with reduced ejection fraction of 40%, who is presenting to the emergency department today for evaluation of chest pain. The patient actually presented to the emergency department and was admitted on 12/29/2024 for chest pain in the setting of A-fib with RVR. He was stabilized on IV Cardizem in the inpatient setting. Cardiology evaluated the patient while he was in the inpatient setting and he had several troponins that were normal but was still having recurrent chest pain despite 3 antianginal medications. They did not perform left heart catheterization during admission because the patient had reported noncompliance with his antianginal medications. Therefore he was ultimately discharged home with plans to continue Plavix and Eliquis and to have further consideration for outpatient ischemic workup. This evening the patient returns to the emergency department complaining of chest pain again. He states that at time of discharge he was instructed that he should return to the emergency department if he has recurrence of chest pain and requires 3 doses of nitroglycerin. This evening he developed chest pain while sitting on the couch, and he then took 1 dose of nitroglycerin. He then began walking around the house and began experiencing additional chest pain and took 2 more doses of nitroglycerin. At this point he decided to come to the emergency department for further evaluation. He tells me that his pain radiates into his arms bilaterally. It was associated with nausea at onset but no diaphoresis. Related Data Home Medications ?Medication ?Instructions ?Recorded ?Confirmed ascorbic acid (vitamin C) 1,000 mg 1,000 mg PO DAILY 0 04/10/17 12/30/24 tablet aspirin 81 mg tablet,delayed 81 mg PO DAILY 04/10/17 1 release (Adult Low Dose Aspirin) bupropion HCl 150 mg tablet,12 hr 150 mg PO DAILY 03/2512/30/24 sustained-release fluticasone fur. 100 mcg-umeclid 1 inh inhalation ROSE Y 10/19/21 12/30/24 62.5 mcg-vilant 25 mcg inhalat.powder (Trelegy Ellipta) nitroglycerin 0.4 mg sublingual 0.4 mg sublingual Q5MI [employer] PRN chest 09/17/23 12/30/24 tablet (Nitrostat) pain olmesartan 40 mg tablet 40 mg PO DAILY 09/17/23 10/11/16 ranolazine 1,000 mg 1,000 mg PO BID 12/29/2411/16 tablet,extended release,12 hr Previous Rx's ?Medication ?Instructions ?Recorded apixaban 5 mg tablet (Eliquis) 5 mg PO BID #60 tabs clopidogrel 75 mg tablet 75 mg PO DAILY 30 days #30 t abs 12/30/24 empagliflozin 10 mg tablet 10 mg PO DAILY 30 days #30 tabs 12/30/24 (Jardiance) metoprolol succinate 100 mg 100 mg PO HS 30 days #30 t abs 12/30/24 tablet,extended release 24 hr spironolactone 25 mg tablet 25 mg PO DAILY 30 days #30 tabs 12/30/24 Allergies Allergy/AdvReac Type Severity Reaction Status Date / Time rosuvastatin (From Crestor) Allergy Mild Back Pain Verified 12/31/24 00:11 [facility] Disclaimer: The information contained in this section may have been updated after the patient was seen, as this information can be updated by other users. Medical History SVT (supraventricular tachycardia) HFrEF (heart failure with reduced ejection fraction) Ventricular tachycardia Impotence Typical angina NYHA Class III cardiovascular function Post-operative complication Gynecomastia HHD (hypertensive heart disease) HLD (hyperlipidemia) CAD (coronary artery disease) Multiple nodules of lung Diastolic heart failure Obesity PAD (peripheral artery disease) Essential hypertension COPD (chronic obstructive pulmonary disease) GERD (gastroesophageal reflux disease) PVC (premature ventricular contraction) Systolic heart failure Tobacco dependence syndrome Surgical History History of endarterectomy Family History Other No significant family history Social History (Updated 12/29/24 @ 03:20 by Inga Moreno RN) Smoking Status: Current every day smoker tobacco type: cigarettes packs per day: 1 alcohol intake: never substance use type: denies use current occupational status: unemployed Travel in the last 8 weeks?: Inside the [place] household members: significant other housing: house current occupational exposures/hazards: No caffeine: Yes Have you lived/traveled outside [place] in past 30 days?: No Contact w/someone who lives/traveled outside [place] past 30 days?: No Exposure to someone with infectious disease in past 14 days?: No Do you have a fever (greater than 100.4 F or 38 C)?: No Have you tested positive for COVID-19?: No Exposed to someone with COVID-19 in past 14 days?: No Do you have a sore throat?: No Do you have a cough?: No Do you have any weakness?: No Do you have any diarrhea?: No Are you experiencing any unusual bleeding?: No Do you have any muscle aches/pain?: No Do you have any abdominal pain?: No Are you experiencing loss of taste or smell?: No Other Medical History Have you received the Flu Vaccine for this season: No Have you received the Pneumonia Vaccine: No ROS Obtained: Yes Systems reviewed as appropriate & no additional complaints except as documented Physical Exam General General appearance: other (See MDM) Respiratory Respiratory exam: Present other (See MDM) Cardiovascular Cardiovascular exam: Present other (See MDM) Neurological Exam Neurological exam: Present other (See MDM) HEART Score HEART Score HEART Score assessment performed?: Yes History (anamnesis): Highly suspicious ECG: Normal Age: >65 years Risk factors: Atherosclerosis history Troponin: </= normal limit HEART Score: 6 Critical Care Critical Care Time Critical Care Time: No Medical Decision Making Medical Records Medical records reviewed: Yes I reviewed the patient's medical records. [place] Inquiry Pt receiving controlled substance: No [place] was queried for this patient: No Vital Signs Vital Signs: 12/30/24 21:38 12/30/24 22:13 Temperature 97.8 F Temperature Source Oral Pulse Rate 87 Pulse Rate [Right] 87 Respiratory Rate 17 Blood Pressure [Right Arm] 158/78 H Blood Pressure Mean [Right Arm] 104 02 Sat by Pulse Oximetry 95 Oxygen Delivery Method Room Air Nasal Cannula Lab Data Labs: Lab Results 12/30/24 21:25: WBC 9.5, RBC 4.46 L, Hgb 13.7 L, Hct 41.1 L, MCV 92.2, MCH 30.7, MCHC 33.3, RDW 13.4, Plt Count 265, MPV 8.8, Neut % (Auto) 71.2, Lymph % (Auto) 20.2, [place] % (Auto) 6.0, Eos % (Auto) 2.1, Baso % (Auto) 0.2, Neut # (Auto) 6.8, Lymph # (Auto) 1.9, [place] # (Auto) 0.6, Eos # (Auto) 0.2, Baso # (Auto) 0.0, PT 11.4, INR 1.03, D-Dimer 1.06 H, Sodium 139, Potassium 4.6, Chloride 103, Carbon Dioxide 24, Anion Gap 16.6 H, BUN 25 H D, Creatinine 1.30 H, Estimated Creat Clear 81, Estimated GFR 55 L, Est GFR ( Amer) 67, Glucose 114 H D, Calcium 9.4, Magnesium 2.0, Total Bilirubin 0.9, AST 33 D, ALT 22, Alkaline Phosphatase 64, Troponin I < 0.01, Total Protein 7.8, Albumin 4.5 D, Globulin 3.3 H, Albumin/Globulin Ratio 1.4, Lipase 64, TSH 1.55, Free T4 0.98 12/30/24 21:25 12/30/24 21:25 Response Orders (Tests/Meds): ED MEDICATIONS Generic Name Dose Route Start Last Admin Trade Name Freq PRN Reason Stop Dose Admin Acetaminophen 650 mg 12/31/24 00:02 Acetaminophen 325mg Tab PO 01/30/25 00:01 Q4HP PRN Fever or Mild Pain (1-3) Hydrocodone Bitart/Acetaminophen 1 tab 12/31/24 00:02 Hydrocodone/Apap 5/325 Mg Tablet PO 01/30/25 00:01 Q4HP PRN Mild to Moderate Pain (1-6) Enoxaparin Sodium 40 mg 12/31/24 21:00 Enoxaparin 40mg/0.4ml Syringe SUBCUT 01/30/25 20:59 DAILY EVELIN Morphine Sulfate 2 mg 12/31/24 00:02 Morphine 2mg/Ml Syringe IV 01/30/25 00:01 Q2HP PRN Severe Pain (7-10) Ondansetron HCl 4 mg 12/31/24 00:02 Ondansetron 4mg/2ml Vial IV 01/30/25 00:01 Q8HP PRN Nausea Sodium Chloride 10 ml 12/31/24 00:02 Sodium Chloride 0.9% 10ml Flush Syringe IV 01/30/25 00:01 NEEDED PRN Maintain IV Site Discontinued Medications Generic Name Dose Route Start Last Admin Trade Name Davon PRN Reason Stop Dose Admin Aspirin 325 mg 12/30/24 22:14 12/30/24 22:18 Aspirin 325mg Tablet PO 12/30/24 22:15 325 mg ONCE ONE Administration Iopamidol 75 ml 12/30/24 22:56 12/30/24 23:02 Iopamidol-370 (76%);100ml Bottle IV 12/30/24 22:57 75 ml ONCE ONE Administration Sodium Chloride 50 ml 12/30/24 22:56 12/30/24 23:02 0.9 % Sodium Chloride 50 Ml Vial IV 12/30/24 22:57 50 ml ONCE ONE Administration Sodium Chloride 10 ml 12/30/24 22:56 12/30/24 23:02 Sodium Chloride 0.9% 10ml Syr (Rad Only) IV 12/30/24 22:57 10 ml ONCE ONE Administration ORDERS Category Date Time Status CT angio chest PE protocol Stat Cat Scan 12/30/24 22:15 Completed CXR --portable [XR chest portable] Stat Exams 12/30/24 21:15 Completed CBC w/Auto Diff [Complete Blood Count Auto Diff] Stat Lab 12/30/24 21:25 Completed CMP [Comprehensive Metabolic Panel] Stat Lab 12/30/24 21:25 Completed D-Dimer Stat Lab 12/30/24 21:25 Completed Free T4 (Free Thyroxine) Stat Lab 12/30/24 21:25 Completed Lipase Stat Lab 12/30/24 21:25 Completed Magnesium Stat Lab 12/30/24 21:25 Completed PT INR [Prothrombin Time INR] Stat Lab 12/30/24 21:25 Completed TSH [Thyroid Stimulating Hormone] Stat Lab 12/30/24 21:25 Completed Troponin I Q3H Lab 12/31/24 00:15 Ordered Troponin I Q3H Lab 12/31/24 03:15 Ordered Troponin I Stat Lab 12/30/24 21:25 Completed ECG Data Tracing #1: Attestation: I reviewed this ECG and interpreted as documented below: ECG Narrative: EKG personally interpreted by me demonstrates normal sinus rhythm at a rate of 80 bpm, normal axis, no OK prolongation, narrow QRS, no QTc prolongation. No ST elevation or depression. No overt signs of ischemia or arrhythmia. MDM Narrative Medical Decision Narrative: In summary, this is a 69-year-old male patient who is presenting to the emergency department today for evaluation of chest pain. The patient has an extensive past medical history of coronary artery disease status post multiple stents, heart failure with reduced ejection fraction, COPD, active tobacco use, peripheral arterial disease, hypertension, and hyperlipidemia. It should be noted that at the time of my evaluation of the patient he was not experiencing active chest pain On initial evaluation of the patient they were resting comfortably in no acute distress and nontoxic in appearance. They are hemodynamically stable, saturating well room air, and are neurologically intact. On physical examination his heart and lungs are clear to auscultation bilaterally. Radial pulses are equal and symmetric bilaterally. He has no abdominal tenderness to palpation. No lower extremity erythema or edema. Differential diagnosis includes ACS/MS, aortic dissection, pulmonary embolism, pleurisy, pneumonia, among others. Workup was initiated with hematologic labs as well as a chest x-ray and EKG and D-dimer. initial interventions included 324 mg of aspirin. Labs were personally interpreted by me and demonstrate no leukocytosis or transfusional anemia. PT/INR is within normal limits. CMP was also interpreted by me and demonstrates no significant electrolyte derangement or evidence of acute kidney injury. Initial troponin is less than 0.01. We did obtain a D- dimer that was elevated at 1.06, this is above the cutoff for years criteria so we will obtain a CT PE for further workup. CT PE was obtained and personally interpreted by me and demonstrates no evidence of saddle pulmonary embolism. Official radiology read is in agreement and states that there is no evidence of pulmonary embolism but there is moderate upper lobe emphysema as well as stenosis noted at the origin of the SMA. I have had an interactive discussion with the service or work dispatcher on-call, Dr. Gómez, who states that he would like to have this patient mid to the hospital for further workup of ischemic heart disease. He is recommended admission to the internal medicine service. I have had an interactive discussion with the internal medicine service who has agreed to evaluate the patient the emergency department. After our discussion and their evaluation they have agreed to admit the patient to their service and accept primary responsibility the patient moving forward.
[2024-12-30 21:31] LABS: Hematocrit 41.1 % (42.0-52.0); Hemoglobin 13.7 g/dL (14.1-18.0); Immature Granulocytes % 0.3 %; Mean Corpuscular HGB Conc 33.3 g/dL (31.8-35.4); Mean Corpuscular Hemoglobin 30.7 pg (27.0-31.2); Mean Corpuscular Volume 92.2 fl (80-94); Nucleated Red Blood Cells % 0 %; Platelet Count 265 K/mm3 (142-424); Red Blood Count 4.46 M/mm3 (4.60-6.20); Red Cell Distribution Width-SD 45.3 fL; White Blood Count 9.5 K/mm3 (4.8-10.8)
[2024-12-30 21:38] VITALS: BP 158/78; PULSE 87; RESP 17; TEMP 36.6; O2SAT 95; BMI 33.0
[2024-12-30 21:43] LABS: INR 1.03 (0.9-1.1); Prothrombin Time 11.4 seconds (10.1-12.5)
[2024-12-30 21:47] LABS: Alanine Aminotransferase 22 U/L (12-78); Albumin Level 4.5 g/dl (3.5-5.0); Albumin/Globulin Ratio 1.4 (1.1-1.8); Alkaline Phosphatase 64 U/L (38-126); Anion Gap 16.6 mEq/L (5-15); Aspartate Amino Transferase 33 U/L (17-59); Bilirubin,Total 0.9 mg/dl (0.2-1.3); Blood Urea Nitrogen 25 mg/dl (9-20); Calcium 9.4 mg/dl (8.4-10.2); Carbon Dioxide 24 mmol/L (22.0-30.0); Chloride 103 mmol/L (98-107); Creatinine Clearance Estimated 81 mL/min (50-200); Creatinine,Serum 1.30 mg/dl (0.66-1.25); Estimated Glomerular Filt Rate 55 ml/min (>60); GFR (African American) 67 ML/MIN (>60); Globulin 3.3 g/dL (1.3-3.2); Glucose 114 mg/dl (74-100); Lipase 64 U/L (23-300); Magnesium 2.0 mg/dl (1.6-2.3); Potassium 4.6 mmoL/L (3.5-5.1); Sodium 139 mmol/L (136-145); Total Protein,Serum 7.8 g/dl (6.3-8.2)
[2024-12-30 21:54] LABS: D-Dimer 1.06 ug/mL (0.0-0.5)
[2024-12-30 22:04] LABS: Free T4 (Free Thyroxine) 0.98 ng/dl (0.78-2.19); Troponin I < 0.01 ng/ml (0.00-0.034)
[2024-12-30 22:13] VITALS: PULSE 87
--- NOTE | 2024-12-30 22:15 | CT_ITS ---
PROCEDURE INFORMATION: Exam: CTA Chest With Contrast Exam date and time: 12/30/2024 10:58 PM Age: 69 years old Clinical indication: Pain; Chest pressure; Additional info: Elevated d-dimer, active chest pain TECHNIQUE: Imaging protocol: Computed tomographic angiography of the chest with contrast. Exam focused on the arteries. 3D rendering (Not supervised by radiologist): MIP and/or 3D reconstructed images were created by the technologist. Radiation optimization: All CT scans at this facility use at least one of these dose optimization techniques: automated exposure control; mA and/or kV adjustment per patient size (includes targeted exams where dose is matched to clinical indication); or iterative reconstruction. Contrast material: ISOVUE; Contrast volume: 70 ml; Contrast route: INTRAVENOUS (IV); COMPARISON: CT ANGIO CHEST PE PROTOCOL 12/29/2024 9:47 AM FINDINGS: Tubes, catheters and devices: AICD noted. Pulmonary arteries: No CT evidence for pulmonary embolism. Aorta: Unremarkable. No aortic aneurysm. No aortic dissection. 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 There is also moderate stenosis at the origin of the celiac trunk. Lungs: Moderate upper lobe emphysema. No acute infiltrates. Pleural spaces: Unremarkable. No pneumothorax. No pleural effusion. Heart: Unremarkable. No cardiomegaly. No pericardial effusion. Lymph nodes: Unremarkable. No enlarged lymph nodes. Bones/joints: Unremarkable. No acute fracture. Soft tissues: Unremarkable. IMPRESSION: 1. No CT evidence for pulmonary embolism. 2. Moderate upper lobe emphysema. 3. AICD noted. No acute infiltrates. 4. 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 There is also moderate stenosis at the origin of the celiac trunk. COMMENTS: The presence of pulmonary emphysema on CT is an independent risk factor for lung cancer. In the absence of a history or active diagnosis of lung cancer, it is recommended that this patient with emphysema be evaluated for enrollment in a low dose CT lung cancer screening program.
[2024-12-30 22:18] LABS: Thyroid Stimulating Hormone 1.55 uIU/mL (0.465-4.68)
[2024-12-30] MEDS: ASPIRIN 325MG TABLET 325 MG PO (22:18)
[2024-12-30] MEDS: IOPAMIDOL-370 (76%);100ML BOTTLE 75 ML IV (23:02)
[2024-12-30] MEDS: SODIUM CHLORIDE 0.9% 10ML SYR (RAD ONLY) 10 ML IV (23:02)
[2024-12-30] MEDS: 0.9 % SODIUM CHLORIDE 50 ML VIAL IV (23:02)
--- NOTE | 2024-12-30 23:42 | PC.NURSE ---
Report called to camille WEISS.
[2024-12-30 23:56] VITALS: BP 157/87; PULSE 78; RESP 16; TEMP 36.9; O2SAT 97
[2024-12-31] VITALS (17 sets, daily range): BP systolic 124–159; BP diastolic 61–93; PULSE 58–80; RESP 12–20; TEMP 36.1–36.6; O2SAT 94–99; BMI 32.4; BMI 30.9
--- NOTE | 2024-12-31 00:49 | P.HP_ITS ---
<Statement entered by Javan Adams MD - 01/01/25 11:52> Agree with plan of care as outlined by the HEALTH AND WELLNESS COORDINATOR. History of Present Illness *Admission Date: 12/31/24 *Reason for visit:: Chest pain *History of present illness: This is a 69-year-old male who is well-known to our service has a past medical history significant for SVT, HFrEF, angina, hyperlipidemia, obesity, peripheral artery disease, hypertension, COPD, GERD, claudication, and obesity who presents with a chief complaint of chest pain. Due to patient symptoms, he presented to the emergency room for evaluation. While in the room, EKG revealed a sinus rhythm, QTc of 429, normal axis and no evidence of acute AL. Patient's troponins were nonresponsive. Patient was recently admitted for stable versus unstable angina. It was felt at that time the patient was not compliant with his antianginal and was discharged home without left heart cath. He was encouraged to come back to the emergency room if he started to experience increased chest pain that was unrelieved by nitro; as a result, patient's acquisition marketing coordinator was consulted who recommended he be admitted for further management. During my evaluation of the patient, patient states that his symptoms started while at rest he took nitro and his symptoms improved. Patient states he started to walk around and experienced more chest pain with exertion. He took another nitro and his chest pain resolved. Currently, chest pain is absent and patient. He states his chest pain was midsternal without radiation or coupled with any shortness of breath/diaphoresis. Patient is currently denying any chest pain, lightheadedness, PND, orthopnea, nausea, vomiting, diarrhea, diaphoresis, shortness of breath, or dyspnea. CTA of the chest was negative for any acute cardiopulmonary disease or thoracic complications. Additional pertinent labs obtained including red blood cell count of 4.46, hemoglobin 13.7, hematocrit 41.1, D-dimer 1.06, BUN 25, creatinine 1.30, GFR 55, and blood glucose 114. [facility] Disclaimer: The information contained in this section may have been updated after the patient was seen, as this information can be updated by other users. Medical History SVT (supraventricular tachycardia) HFrEF (heart failure with reduced ejection fraction) Ventricular tachycardia Impotence Typical angina NYHA Class III cardiovascular function Post-operative complication Gynecomastia HHD (hypertensive heart disease) HLD (hyperlipidemia) CAD (coronary artery disease) Multiple nodules of lung Diastolic heart failure Obesity PAD (peripheral artery disease) Essential hypertension COPD (chronic obstructive pulmonary disease) GERD (gastroesophageal reflux disease) PVC (premature ventricular contraction) Systolic heart failure Tobacco dependence syndrome Surgical History History of endarterectomy Family History Other No significant family history Social History (Updated 12/29/24 @ 03:20 by Inga Moreno RN) Smoking Status: Current every day smoker tobacco type: cigarettes packs per day: 1 alcohol intake: never substance use type: denies use current occupational status: unemployed Travel in the last 8 weeks?: Inside the [place] household members: significant other housing: house current occupational exposures/hazards: No caffeine: Yes Have you lived/traveled outside [place] in past 30 days?: No Contact w/someone who lives/traveled outside US past 30 days?: No Exposure to someone with infectious disease in past 14 days?: No Do you have a fever (greater than 100.4 F or 38 C)?: No Have you tested positive for COVID-19?: No Exposed to someone with COVID-19 in past 14 days?: No Do you have a sore throat?: No Do you have a cough?: No Do you have any weakness?: No Do you have any diarrhea?: No Are you experiencing any unusual bleeding?: No Do you have any muscle aches/pain?: No Do you have any abdominal pain?: No Are you experiencing loss of taste or smell?: No Other Medical History Have you received the Flu Vaccine for this season: No Have you received the Pneumonia Vaccine: No Review of Systems Review of Systems Review of systems:: pertinent systems reviewed and negative unless documented below Constitutional Constitutional: Reports system reviewed and no additional complaints, except as documented Eyes Eyes: Reports system reviewed and no additional complaints, except as documented ENT Ears, Nose, Mouth, and Throat: Reports system reviewed and no additional complaints, except as documented *Cardiovascular Cardiovascular: Reports chest pain, Reports chest pain at rest and Reports chest pain with activity *Respiratory Respiratory: Reports system reviewed and no additional complaints, except as documented *Gastrointestinal Gastrointestinal: Reports system reviewed and no additional complaints, except as documented *Genitourinary Genitourinary: Reports system reviewed and no additional complaints, except as documented *Musculoskeletal Musculoskeletal: Reports system reviewed and no additional complaints, except as documented Integumentary/Breasts Skin/Breast: Reports system reviewed and no additional complaints, except as documented *Neurologic Neurologic: Reports system reviewed and no additional complaints, except as documented Psychiatric Psychiatric: Reports system reviewed and no additional complaints, except as documented Endocrine Endocrine: Reports system reviewed and no additional complaints, except as documented Hematologic/Lymphatic Hematologic/Lymphatic: Reports system reviewed and no additional complaints, except as documented Allergic/Immunologic Allergic/Immunologic: Reports system reviewed and no additional complaints, except as documented Meds Home Medications and Allergies Home Medications ?Medication ?Instructions ?Recorded ?Confirmed ?Type ascorbic acid (vitamin C) 1,000 mg 1,000 mg PO DAILY 0 04/10/17 12/30/24 History tablet aspirin 81 mg tablet,delayed 81 mg PO DAILY 04/10/17 1 History release (Adult Low Dose Aspirin) bupropion HCl 150 mg tablet,12 hr 150 mg PO DAILY 03/2512/30/24 History sustained-release fluticasone fur. 100 mcg-umeclid 1 inh inhalation ROSE Y 10/19/21 12/30/24 History 62.5 mcg-vilant 25 mcg inhalat.powder (Trelegy Ellipta) nitroglycerin 0.4 mg sublingual 0.4 mg sublingual Q5MI EVENT PLANNING INTERN PRN chest 09/17/23 12/30/24 History tablet (Nitrostat) pain olmesartan 40 mg tablet 40 mg PO DAILY 09/17/2311/16 History ranolazine 1,000 mg 1,000 mg PO BID 12/29/2411/16 History tablet,extended release,12 hr apixaban 5 mg tablet (Eliquis) 5 mg PO BID #60 tabs 12/30/24 Rx clopidogrel 75 mg tablet 75 mg PO DAILY 30 days #30 t abs 12/30/24 12/30/24 Rx empagliflozin 10 mg tablet 10 mg PO DAILY 30 days #30 tabs 12/30/24 12/30/24 Rx (Jardiance) metoprolol succinate 100 mg 100 mg PO HS 30 days #30 t abs 12/30/24 12/30/24 Rx tablet,extended release 24 hr spironolactone 25 mg tablet 25 mg PO DAILY 30 days #30 tabs 12/30/24 12/30/24 Rx New Prescriptions to Start Prescriptions: Allergies Allergy/AdvReac Type Severity Reaction Status Date / Time rosuvastatin (From Crestor) Allergy Mild Back Pain Verified 12/31/24 00:11 Exam Data for Last 24 hours Vital signs and Labs for Last 24 Hours: Temp Pulse Resp BP Pulse Ox O2 Del Method 97.9 F 72 12 159/61 H 96 Room Air 12/31/24 00:00 12/31/24 00:00 12/31/24 00:00 12/31/24 00:00 12/31/24 00:00 12/31/24 00:00 Laboratory Results - last 24 hr 12/30/24 21:25: WBC 9.5, RBC 4.46 L, Hgb 13.7 L, Hct 41.1 L, MCV 92.2, MCH 30.7, MCHC 33.3, RDW 13.4, Plt Count 265, MPV 8.8, Neut % (Auto) 71.2, Lymph % (Auto) 20.2, [place] % (Auto) 6.0, Eos % (Auto) 2.1, Baso % (Auto) 0.2, Neut # (Auto) 6.8, Lymph # (Auto) 1.9, [place] # (Auto) 0.6, Eos # (Auto) 0.2, Baso # (Auto) 0.0, PT 11.4, INR 1.03, D-Dimer 1.06 H, Sodium 139, Potassium 4.6, Chloride 103, Carbon Dioxide 24, Anion Gap 16.6 H, BUN 25 H D, Creatinine 1.30 H, Estimated Creat Clear 81, Estimated GFR 55 L, Est GFR ( Amer) 67, Glucose 114 H D, Calcium 9.4, Magnesium 2.0, Total Bilirubin 0.9, AST 33 D, ALT 22, Alkaline Phosphatase 64, Troponin I < 0.01, Total Protein 7.8, Albumin 4.5 D, Globulin 3.3 H, Albumin/Globulin Ratio 1.4, Lipase 64, TSH 1.55, Free T4 0.98 I & O for Last 24 hours: Intake & Output 12/28/24 12/29/24 12/30/24 12/31/24 23:59 23:59 23:59 23:59 Intake Total 100 / 100 Balance 100 / 100 Weight 104.326 kg 102.875 kg Constitutional Constitutional: no acute distress, obese and cooperative *Routine HEENT Exam Head: Present normocephalic and atraumatic Eye: Present EOMI and PERRL ENT: Present mucous membranes moist *Routine Neck Exam Neck: Present supple, full ROM and trachea midline *Routine Respiratory Exam Respiratory: Present CTA bilaterally, normal respiratory effort, able to speak in complete sentences and symmetric chest movement *Routine Cardiovascular Exam Cardiovascular: Present RRR, Normal S1 and Normal S2 *Routine Abdominal Exam Abdominal: Present soft, normoactive bowel sounds and obese *Routine Rectal Exam Rectal:: deferred *Routine Genitalia Exam Genitalia:: deferred *Routine Extremities Exam Extremities: Present full ROM and pulses intact Routine Back/Spine/Pelvis Exam Back/Spine: Present full ROM *Routine Skin Exam Skin: Present intact, dry and warm *Routine Neurological Exam Neurological: Present alert, oriented X3, CN II-XII intact, moving all extremities and normal speech Routine Psychiatric Exam Psychiatric: Present normal affect, normal thought process, cooperative, good insight and good judgment H&P: Result Impressions 69-year-old male who has no angina presents with chest pain that responded to nitrates while at home. Decision was made to proceed with possible left heart cath tomorrow Assessment and Plan *Assessment and plan (1) Unstable angina: Status: Acute Category: Medical Code(s): I20.0 - Unstable angina (2) Chest pain: Status: Acute Qualifiers: Chest pain type: unspecified Qualified Code(s): R07.9 - Chest pain, unspecified Category: Medical Code(s): R07.9 - Chest pain, unspecified (3) Acute on chronic renal failure: Status: Acute Qualifiers: Acute renal failure type: unspecified Chronic kidney disease stage: unspecified stage Qualified Code(s): N17.9 - Acute kidney failure, unspecified; N18.9 - Chronic kidney disease, unspecified Category: Medical Code(s): N17.9 - Acute kidney failure, unspecified; N18.9 - Chronic kidney disease, unspecified (4) Elevated d-dimer: Status: Acute Category: Medical Code(s): R79.89 - Other specified abnormal findings of blood chemistry Plan Assessment: Stable versus unstable angina Chest pain - Will keep patient n.p.o. until evaluated by primary acquisition marketing coordinator - Patient did receive aspirin while in the emergency room - Will continue to trend troponins - Appreciate further recommendations from cardiology -Most recent 2D echo obtained on the seventh of this month revealed an EF of 40% and severe hypokinesis of the distal and apical left ventricular burgess - I see no current reason to repeat or perform a limited - Will give nitro for any persistent angina/chest pain Elevated D-dimer - CTA of the chest was negative for any acute cardiopulmonary process Acute on chronic renal impairment: Baseline creatinine around 1.20 - Will give IV hydration of normal saline at 75 mL an hour. - We will hydrate over the course of the night and discontinue IV fluid after cath - If renal function worsens, will obtain urine studies coupled with renal ultrasound Plan: Admit patient to the MedSurg unit on telemetry Activity as tolerated Vital signs every 4 hours Daily weight Consult cardiology Consult case management Keep patient n.p.o. CBC/BMP daily 40 mg Lovenox subcu daily for DVT prophylax 5 mg of Ariton p.o. every 4 hours for moderate pain 2 mg morphine IV push every 2 hours as needed severe pain 4 mg of Zofran IV push straight hours for nausea ROM Full code I will discussed this case with attending physician Dr. Adams and I look forward to more input
[2024-12-31 00:56] LABS: Troponin I < 0.01 ng/ml (0.00-0.034)
[2024-12-31] MEDS: 0.9 % SODIUM CHLORIDE 1000ML 1,000 ML 75 ML IV (02:37)
[2024-12-31 03:50] LABS: Troponin I < 0.01 ng/ml (0.00-0.034)
--- NOTE | 2024-12-31 05:20 | PC.NURSE ---
Alert and oriented. Room air. No complaints of chest pain since arriving to floor. Patient has rested well. Independent in room. Call light in reach.
[2024-12-31 06:35] LABS: Hematocrit 35.4 % (42.0-52.0); Immature Granulocytes % 0.2 %; Mean Corpuscular HGB Conc 31.9 g/dL (31.8-35.4); Mean Corpuscular Hemoglobin 29.6 pg (27.0-31.2); Mean Corpuscular Volume 92.7 fl (80-94); Nucleated Red Blood Cells % 0 %; Platelet Count 217 K/mm3 (142-424); Red Blood Count 3.82 M/mm3 (4.60-6.20); Red Cell Distribution Width-SD 45.1 fL; White Blood Count 6.5 K/mm3 (4.8-10.8)
[2024-12-31 06:39] LABS: Hemoglobin 11.5 g/dL (14.1-18.0)
[2024-12-31 06:54] LABS: Anion Gap 14.1 mEq/L (5-15); Blood Urea Nitrogen 24 mg/dl (9-20); Calcium 8.4 mg/dl (8.4-10.2); Carbon Dioxide 21 mmol/L (22.0-30.0); Chloride 106 mmol/L (98-107); Creatinine Clearance Estimated 83 mL/min (50-200); Creatinine,Serum 1.20 mg/dl (0.66-1.25); Estimated Glomerular Filt Rate 60 ml/min (>60); GFR (African American) 73 ML/MIN (>60); Glucose 90 mg/dl (74-100); Potassium 4.1 mmoL/L (3.5-5.1); Sodium 137 mmol/L (136-145)
--- NOTE | 2024-12-31 08:32 | HMH.PHAINT1 ---
Pharmacy Intervention Comments: Home medication list verified using list from most recent discharge from this facility on 12/30/24
--- NOTE | 2024-12-31 08:55 | IR_ITS ---
APPROVED REPORT Patient Location: Inpatient Hand Leather Trimmer: LYRIC Hamilton RT (R) PROCEDURES Left heart catheterization Left ventriculogram Selective coronary angiogram Drug-eluting stent deployment to the ostial proximal mid and distal dominant right coronary artery in a contiguous manner INDICATION Unstable angina, Coronary artery disease Informed consent was obtained prior to the procedure. COMPLICATIONS None Estimated Blood Loss: Less than 10 mls TECHNIQUE One percent lidocaine used to anesthetize the right anterior aspect of the wrist. The right radial artery was accessed via the Seldinger technique. A 6 [place] sheath was placed in the right radial artery. 2.5 mg of Verapamil, 800 mcg of nitroglycerin, 1mg Lidocaine and 5000 U Heparin were given through the arterial sheath. The JL3 catheter was also used to perform left heart catheterization, left ventriculogram and selective coronary angiogram. At the end the diagnostic angiogram therapeutic Was administered giving a therapeutic ACT and the guide catheters placed in the right coronary followed by Choice PT extra-support wire. A 3 mm x 38 mm stent was advanced and got caught in the proximal segment on stent struts. It was decided not to advance or retract the stent but since disease was present causing the stent to be caught it was decided to be deployed at 24 andreas. Following this an additional 3.5 x 12 mm Skinny frontier stent was placed proximal to the for stent yet still overlapping and extending back into the right coronary cusp and covering the ostium and then deployed at 24 andreas. An additional 3.5 x 38 mm Skinny frontier stent was then easily deployed in the mid to distal segment overlapping the first stent that was placed and then deployed at 20 andreas. The balloon was brought back and deployed at 20 andreas and then 24 andreas in the proximal and ostial segment. ANTOINE-3 flow was present before before and after the procedure. After achieving excellent angiograph results the apparatus was removed the sheath was removed good hemostasis was achieved using TR banding patient was transferred to the postop holding area in stable condition ANGIOGRAPHIC RESULTS The left main artery Normal The left anterior descending artery Has a stent in the proximal to mid segment which is widely patent with mild in-stent restenosis in the proximal segment and mid vessel 30 and 40% in-stent restenotic lesions. The circumflex artery Nondominant with proximal 30 to 40% stenosis and additional 30 to 40% stenosis in a large second obtuse marginal artery The right coronary artery Is a dominant vessel and has proximal 30 and 40% stenosis with mid vessel 50 and a distal 70% stenosis. The posterior descending artery has an ostial 80% stenosis and is then occluded proximally and fills via [id number] collaterals. A moderate-sized posterior lateral branch has diffuse 30% stenosis The MORA ventriculogram reveals Reduced at 35 to 40% The left ventricular end-diastolic pressure 20 mmHg IMPRESSION Coronary artery disease as described above Successful stenting of the ostial proximal mid and distal dominant right coronary artery severe disease reduced to 3 contiguous drug-eluting stents as described above Reduced ejection fraction Elevated LVEDP PLAN 1. Medical management 2. Cardiac rehabilitation 3. Avoidance of tobacco products 4. Risk factor modification 5. Standard therapy for systolic heart failure Electronically signed by : Sharif Gómez MD 12/31/2024 16:11:29
[2024-12-31] MEDS: CLOPIDOGREL 75MG TAB 75 MG PO (09:17)
[2024-12-31] MEDS: EMPAGLIFLOZIN 10MG TABLET 10 MG PO (09:17)
[2024-12-31] MEDS: IRBESARTAN 300MG TABLET 300 MG PO (09:19)
[2024-12-31] MEDS: RANOLAZINE 500MG ER TABLET 1000 MG PO (09:20)
[2024-12-31] MEDS: SPIRONOLACTONE 25MG TABLET 25 MG PO (09:20)
--- NOTE | 2024-12-31 10:16 | P.CONCA_ITS ---
History of Present Illness History of Present Illness Consult date: 12/31/24 Requesting physician: Javan Adams Consult reason: chest pain Chief complaint: chest pain Additional Medical History:: 1. CAD A. Lithotripsy with 2 JEANNE to LAD, 08/2023 B. JEANNE to RCA, 2 JEANNE to LAD, 06/2023 C. JEANNE in 2016 D. Aspirin/Effient 2. HFrEF A. History of EF 45% on echo in 2022 (previously as low as 33%) B. Cardiac MRI showed EF 34% C. Echo, 12/29/2024, EF 40% with severe hypokinesis of the distal and apical LV burgess. No significant valve disease. 3. Dual-chamber AICD in place ([place]) A. implanted 09/2022 4. PAD A. History of BMS placement to bilateral iliac arteries with occluded right common iliac artery, CT of abd/pelvis, 11/2023 B. History of endarterectomy 5. Continued tobacco use A. CTA of the chest, 12/30/2024, moderate upper lobe emphysema 6. New onset atrial fibrillation, 12/28/2024 A. Likely due to medication noncompliance B. Converted spontaneously after restarting home medications. C. Eliquis started due to elevated [id number] score D. CTA of the chest, 12/29/2024, negative for PE E. CTA chest, 12/30/2024, no PE, moderate upper lobe emphysema, 50-60% stenosis of SMA and moderate stenosis at the origin of the celiac trunk. History of present illness: 69-year-old white male discharged home yesterday from [facility] after admission for new onset atrial fibrillation. Patient went home with rate control medications and anticoagulation. He returned last evening due to recurrent chest pain for which she took 3 nitroglycerin at home. Symptoms resolved after the third nitroglycerin. Of note he did convert spontaneously on his own to sinus rhythm. Troponins this admission are normal. Due to the patient's significant CAD history with stenting in the past we will proceed with left heart catheterization. [facility] Disclaimer: The information contained in this section may have been updated after the patient was seen, as this information can be updated by other users. Medical History SVT (supraventricular tachycardia) HFrEF (heart failure with reduced ejection fraction) Ventricular tachycardia Impotence Typical angina NYHA Class III cardiovascular function Post-operative complication Gynecomastia HHD (hypertensive heart disease) HLD (hyperlipidemia) CAD (coronary artery disease) Multiple nodules of lung Diastolic heart failure Obesity PAD (peripheral artery disease) Essential hypertension COPD (chronic obstructive pulmonary disease) GERD (gastroesophageal reflux disease) PVC (premature ventricular contraction) Systolic heart failure Tobacco dependence syndrome Surgical History History of endarterectomy Family History Other No significant family history Social History (Updated 12/29/24 @ 03:20 by Inga Moreno RN) Smoking Status: Current every day smoker tobacco type: cigarettes packs per day: 1 alcohol intake: never substance use type: denies use current occupational status: unemployed Travel in the last 8 weeks?: Inside the [facility] household members: significant other housing: house current occupational exposures/hazards: No caffeine: Yes Have you lived/traveled outside [place] in past 30 days?: No Contact w/someone who lives/traveled outside US past 30 days?: No Exposure to someone with infectious disease in past 14 days?: No Do you have a fever (greater than 100.4 F or 38 C)?: No Have you tested positive for COVID-19?: No Exposed to someone with COVID-19 in past 14 days?: No Do you have a sore throat?: No Do you have a cough?: No Do you have any weakness?: No Do you have any diarrhea?: No Are you experiencing any unusual bleeding?: No Do you have any muscle aches/pain?: No Do you have any abdominal pain?: No Are you experiencing loss of taste or smell?: No Review of Systems Review of Systems Review of systems:: pertinent systems reviewed and negative unless documented below *Cardiovascular Cardiovascular: Reports chest pain and Reports dyspnea on exertion *Respiratory Respiratory: Reports dyspnea on exertion *Neurologic Neurologic: Reports system reviewed and no additional complaints, except as documented Exam Data for Last 24 hours Vital signs and Labs for Last 24 Hours: Temp Pulse Resp BP Pulse Ox O2 Del Method 98 F 60 16 137/93 H 98 Room Air 12/31/24 08:00 12/31/24 08:00 12/31/24 08:00 12/31/24 08:00 12/31/24 08:00 12/31/24 10:11 Laboratory Results - last 24 hr 12/30/24 21:25: WBC 9.5, RBC 4.46 L, Hgb 13.7 L, Hct 41.1 L, MCV 92.2, MCH 30.7, MCHC 33.3, RDW 13.4, Plt Count 265, MPV 8.8, Neut % (Auto) 71.2, Lymph % (Auto) 20.2, [place] % (Auto) 6.0, Eos % (Auto) 2.1, Baso % (Auto) 0.2, Neut # (Auto) 6.8, Lymph # (Auto) 1.9, [place] # (Auto) 0.6, Eos # (Auto) 0.2, Baso # (Auto) 0.0, PT 11.4, INR 1.03, D-Dimer 1.06 H, Sodium 139, Potassium 4.6, Chloride 103, Carbon Dioxide 24, Anion Gap 16.6 H, BUN 25 H D, Creatinine 1.30 H, Estimated Creat Clear 81, Estimated GFR 55 L, Est GFR ( Amer) 67, Glucose 114 H D, Calcium 9.4, Magnesium 2.0, Total Bilirubin 0.9, AST 33 D, ALT 22, Alkaline Phosphatase 64, Troponin I < 0.01, Total Protein 7.8, Albumin 4.5 D, Globulin 3.3 H, Albumin/Globulin Ratio 1.4, Lipase 64, TSH 1.55, Free T4 0.98 12/31/24 00:28: Troponin I < 0.01 12/31/24 03:20: Troponin I < 0.01 12/31/24 05:25: WBC 6.5 D, RBC 3.82 L, Hgb 11.5 L D, Hct 35.4 L, MCV 92.7, MCH 29.6, MCHC 31.9, RDW 13.4, Plt Count 217, MPV 8.9, Neut % (Auto) 57.3, Lymph % (Auto) 30.3, [place] % (Auto) 8.7, Eos % (Auto) 3.2, Baso % (Auto) 0.3, Neut # (Auto) 3.8, Lymph # (Auto) 2.0, [place] # (Auto) 0.6, Eos # (Auto) 0.2, Baso # (Auto) 0.0, Sodium 137, Potassium 4.1, Chloride 106, Carbon Dioxide 21 L, Anion Gap 14.1, BUN 24 H, Creatinine 1.20, Estimated Creat Clear 83, Estimated GFR 60, Est GFR ( Amer) 73, Glucose 90 D, Calcium 8.4 I & O for Last 24 hours: Intake & Output 12/28/24 12/29/24 12/30/24 12/31/24 11:59 11:59 11:59 11:59 Intake Total 100 / 100 Balance 100 / 100 Weight 216 lb 6.4 oz Constitutional Constitutional: no acute distress *Routine Respiratory Exam Respiratory: Present CTA bilaterally *Routine Cardiovascular Exam Cardiovascular: Present RRR; Absent murmur, gallop or rubs *Routine Extremities Exam Extremities: Absent edema *Routine Neurological Exam Neurological: Present alert, oriented X3 and CN II-XII intact Meds Home Medications and Allergies Home Medications ?Medication ?Instructions ?Recorded ?Confirmed ?Type ascorbic acid (vitamin C) 1,000 mg 1,000 mg PO DAILY 0 04/10/17 12/30/24 History tablet aspirin 81 mg tablet,delayed 81 mg PO DAILY 04/10/17 1 History release (Adult Low Dose Aspirin) bupropion HCl 150 mg tablet,12 hr 150 mg PO DAILY 03/2512/30/24 History sustained-release fluticasone fur. 100 mcg-umeclid 1 inh inhalation ROSE Y 10/19/21 12/30/24 History 62.5 mcg-vilant 25 mcg inhalat.powder (Trelegy Ellipta) nitroglycerin 0.4 mg sublingual 0.4 mg sublingual Q5MI ACTIVITIES COUNSELOR PRN chest 09/17/23 12/30/24 History tablet (Nitrostat) pain olmesartan 40 mg tablet 40 mg PO DAILY 09/17/2311/16 History ranolazine 1,000 mg 1,000 mg PO BID 12/29/2411/16 History tablet,extended release,12 hr apixaban 5 mg tablet (Eliquis) 5 mg PO BID #60 tabs 12/30/24 Rx clopidogrel 75 mg tablet 75 mg PO DAILY 30 days #30 t abs 12/30/24 12/30/24 Rx empagliflozin 10 mg tablet 10 mg PO DAILY 30 days #30 tabs 12/30/24 12/30/24 Rx (Jardiance) metoprolol succinate 100 mg 100 mg PO HS 30 days #30 t abs 12/30/24 12/30/24 Rx tablet,extended release 24 hr spironolactone 25 mg tablet 25 mg PO DAILY 30 days #30 tabs 12/30/24 12/30/24 Rx New Prescriptions to Start Prescriptions: Allergies Allergy/AdvReac Type Severity Reaction Status Date / Time rosuvastatin (From Crestor) Allergy Mild Back Pain Verified 12/31/24 00:11 Assessment and Plan *Assessment and plan (1) Chest pain: Status: Acute Qualifiers: Chest pain type: unspecified Qualified Code(s): R07.9 - Chest pain, unspecified Category: Medical Code(s): R07.9 - Chest pain, unspecified (2) Unstable angina: Status: Acute Category: Medical Code(s): I20.0 - Unstable angina (3) HFrEF (heart failure with reduced ejection fraction): Status: Acute Category: Medical Code(s): I50.20 - Unspecified systolic (congestive) heart failure (4) COPD (chronic obstructive pulmonary disease): Status: Chronic Qualifiers: COPD type: emphysema Emphysema type: other Qualified Code(s): J43.8 - Other emphysema Category: Medical Code(s): J44.9 - Chronic obstructive pulmonary disease, unspecified (5) Tobacco dependence syndrome: Status: Chronic Category: Medical Code(s): F17.200 - Nicotine dependence, unspecified, uncomplicated (6) CAD (coronary artery disease): Status: Chronic Qualifiers: Associated angina: with stable angina Coronary Disease-Associated Artery/Lesion type: [place] artery [place] vs. transplanted heart: [place] heart Qualified Code(s): I25.118 - Atherosclerotic heart disease of [place] coronary artery with other forms of angina pectoris Category: Medical Code(s): I25.10 - Atherosclerotic heart disease of [place] coronary artery without angina pectoris (7) Essential hypertension: Status: Chronic Category: Medical Code(s): I10 - Essential (primary) hypertension (8) HLD (hyperlipidemia): Status: Chronic Qualifiers: Hyperlipidemia type: mixed hyperlipidemia Qualified Code(s): E78.2 - Mixed hyperlipidemia Category: Medical Code(s): E78.5 - Hyperlipidemia, unspecified (9) PAD (peripheral artery disease): Status: Chronic Category: Medical Code(s): I73.9 - Peripheral vascular disease, unspecified (10) PAF (paroxysmal atrial fibrillation): Status: Acute Category: Medical Code(s): I48.0 - Paroxysmal atrial fibrillation Plan 1. Recurrent chest pain, with known CAD and prior stenting, despite 2 antianginal meds and DAPT with ASA/plavix -Troponins normal this admission -plan for [facility] 2. Hospitalized earlier this week for A-fib with RVR which has spontaneously converted back to sinus rhythm -Last dose of Eliquis was yesterday morning. But will restart this after catheterization 3. Tobacco use 4. History of medication noncompliance 5. Hypertension 6. Hyperlipidemia, intolerant to statin therapy 7. HFrEF -On Jardiance, metoprolol, olmesartan, spironolactone Proceed with left heart catheterization today. Possibly discharge home later today to resume Eliquis therapy along with home medications.
[2024-12-31] MEDS: FLUTICASONE/UMECLIDIN/VILANTER 100/62.5/25MCG INHALER 1 PUFF IH (11:39)
[2024-12-31] MEDS: HEPARIN 1,000 UNITS/500ML NS (CATH LAB) 3000 UNIT IV (15:31)
[2024-12-31] MEDS: LIDOCAINE 1% 10ML MDV 10 ML IJ (15:32)
[2024-12-31] MEDS: VERAPAMIL 2.5MG/ML 2ML VIAL 2.5 MG IV (15:32)
[2024-12-31] MEDS: NITROGLYCERIN 800MCG/8ML SYR (CATH LAB) 800 MCG IA (15:33)
[2024-12-31] MEDS: 0.9 % SODIUM CHLORIDE 500 ML 25 ML IV (15:33)
[2024-12-31] MEDS: MIDAZOLAM HCL 1MG/ML 5ML VIAL 1 MG IV (15:33)
[2024-12-31] MEDS: FENTANYL 100MCG/2ML VIAL 25 MCG IV (15:33)
[2024-12-31] MEDS: HEPARIN 1,000 UNITS/ML 10ML VIAL (CATH LAB) 5000 UNIT IV (16:03)
[2024-12-31] MEDS: IOPAMIDOL-370 (76%);100ML BOTTLE 90 ML IV (16:28)
[2024-12-31 16:32] LABS: CATHL Activated Clotting Time 283 SEC (74-125)
--- NOTE | 2024-12-31 17:27 | PC.NURSE ---
Aox 4, up ad darwin, on ra, 18g R AC, cardiac diet, right wrist cath today with three stents placed in the rca.
--- NOTE | 2024-12-31 17:35 | P.DS_ITS ---
General Admission date:: 12/30/24 HPI HPI HPI: This is a 69-year-old male who is well-known to our service has a past medical history significant for SVT, HFrEF, angina, hyperlipidemia, obesity, peripheral artery disease, hypertension, COPD, GERD, claudication, and obesity who presents with a chief complaint of chest pain. Due to patient symptoms, he presented to the emergency room for evaluation. While in the room, EKG revealed a sinus rhythm, QTc of 429, normal axis and no evidence of acute MA. Patient's troponins were nonresponsive. Patient was recently admitted for stable versus unstable angina. It was felt at that time the patient was not compliant with his antianginal and was discharged home without left heart cath. He was encouraged to come back to the emergency room if he started to experience increased chest pain that was unrelieved by nitro; as a result, patient's glass production machine operator was consulted who recommended he be admitted for further management. During my evaluation of the patient, patient states that his symptoms started while at rest he took nitro and his symptoms improved. Patient states he started to walk around and experienced more chest pain with exertion. He took another nitro and his chest pain resolved. Currently, chest pain is absent and patient. He states his chest pain was midsternal without radiation or coupled with any shortness of breath/diaphoresis. Patient is currently denying any chest pain, lightheadedness, PND, orthopnea, nausea, vomiting, diarrhea, diaphoresis, shortness of breath, or dyspnea. CTA of the chest was negative for any acute cardiopulmonary disease or thoracic complications. Additional pertinent labs obtained including red blood cell count of 4.46, hemoglobin 13.7, hematocrit 41.1, D-dimer 1.06, BUN 25, creatinine 1.30, GFR 55, and blood glu cose 114. Hospital Course Hospital Course Hospital Course: Mr. Thurman is a 69-year-old who presented with chest pain and was admitted for unstable angina. #Chest pain #Unstable angina #History of CAD with stents #Chronic HFrEF #Hypertension ? Cardiology consulted, s/p EJANNE x 3 to RCA. Patient tolerated procedure well. ? ECHO on 12/30/2024 revealed LVEF 40% with hypokinesis. Patient has dual-chamber ICD in place. ? Continue home aspirin 81 mg, Plavix 75 mg, Jardiance 10 mg, spironolactone 25 mg, ranolazine 1000 mg twice daily, metoprolol succinate 100mg, olmesartan 40 mg. ? Will follow-up with cardiology within 1 week. #Atrial fibrillation ? Currently rate controlled, continue home metoprolol succinate 100 mg daily, Eliquis 5 mg twice daily. #Tobacco use disorder #COPD ? Patient states he is a daily smoker approximately 1 PPD. Discussed smoking cessation. States he is attempting. #Mood disorder: Continue Wellbutrin 150 mg daily. Exam Data for Last 24 hours Vital signs and Labs for Last 24 Hours: Temp Pulse Resp BP Pulse Ox O2 Del Method O2 Flow Rate 97.6 F 60 17 140/75 99 Nasal Cannula 2 12/31/24 17:10 12/31/24 17:10 12/31/24 17:10 12/31/24 17:10 12/31/24 17:10 12/31/24 17:10 12/31/24 17:10 Laboratory Results - last 24 hr 12/30/24 21:25: WBC 9.5, RBC 4.46 L, Hgb 13.7 L, Hct 41.1 L, MCV 92.2, MCH 30.7, MCHC 33.3, RDW 13.4, Plt Count 265, MPV 8.8, Neut % (Auto) 71.2, Lymph % (Auto) 20.2, [place] % (Auto) 6.0, Eos % (Auto) 2.1, Baso % (Auto) 0.2, Neut # (Auto) 6.8, Lymph # (Auto) 1.9, [place] # (Auto) 0.6, Eos # (Auto) 0.2, Baso # (Auto) 0.0, PT 11.4, INR 1.03, D-Dimer 1.06 H, Sodium 139, Potassium 4.6, Chloride 103, Carbon Dioxide 24, Anion Gap 16.6 H, BUN 25 H D, Creatinine 1.30 H, Estimated Creat Clear 81, Estimated GFR 55 L, Est GFR ( Amer) 67, Glucose 114 H D, Calcium 9.4, Magnesium 2.0, Total Bilirubin 0.9, AST 33 D, ALT 22, Alkaline Phosphatase 64, Troponin I < 0.01, Total Protein 7.8, Albumin 4.5 D, Globulin 3.3 H, Albumin/Globulin Ratio 1.4, Lipase 64, TSH 1.55, Free T4 0.98 12/31/24 00:28: Troponin I < 0.01 12/31/24 03:20: Troponin I < 0.01 12/31/24 05:25: WBC 6.5 D, RBC 3.82 L, Hgb 11.5 L D, Hct 35.4 L, MCV 92.7, MCH 29.6, MCHC 31.9, RDW 13.4, Plt Count 217, MPV 8.9, Neut % (Auto) 57.3, Lymph % (Auto) 30.3, [place] % (Auto) 8.7, Eos % (Auto) 3.2, Baso % (Auto) 0.3, Neut # (Auto) 3.8, Lymph # (Auto) 2.0, [place] # (Auto) 0.6, Eos # (Auto) 0.2, Baso # (Auto) 0.0, Sodium 137, Potassium 4.1, Chloride 106, Carbon Dioxide 21 L, Anion Gap 14.1, BUN 24 H, Creatinine 1.20, Estimated Creat Clear 83, Estimated GFR 60, Est GFR ( Amer) 73, Glucose 90 D, Calcium 8.4 12/31/24 15:44: Activated Clotting Time 283 H* I & O for Last 24 hours: Intake & Output 12/28/24 12/29/24 12/30/24 12/31/24 23:59 23:59 23:59 23:59 Intake Total 1000 / 1000 Balance 1000 / 1000 Weight 104.326 kg 98.157 kg Constitutional Constitutional: no acute distress and chronically ill appearing *Routine HEENT Exam Head: Present normocephalic Eye: Present EOMI and PERRL ENT: Present mucous membranes moist *Routine Neck Exam Neck: Present supple; Absent lymphadenopathy *Routine Respiratory Exam Respiratory: Present CTA bilaterally *Routine Cardiovascular Exam Cardiovascular: Present RRR *Routine Abdominal Exam Abdominal: Present soft and normoactive bowel sounds; Absent tenderness *Routine Extremities Exam Extremities: Absent cyanosis, clubbing or edema *Routine Skin Exam Skin: Present warm; Absent rash *Routine Neurological Exam Neurological: Present alert and oriented X3 Results Data Completed and Pending Labs on day of discharge: Labs from last 24 hours 12/31/24 12/31/24 12/31/24 15:44 05:25 03:20 WBC 6.5 D RBC 3.82 L Hgb 11.5 L D Hct 35.4 L MCV 92.7 MCH 29.6 MCHC 31.9 RDW 13.4 Plt Count 217 MPV 8.9 Neut % (Auto) 57.3 Lymph % (Auto) 30.3 [place] % (Auto) 8.7 Eos % (Auto) 3.2 Baso % (Auto) 0.3 Neut # (Auto) 3.8 Lymph # (Auto) 2.0 [place] # (Auto) 0.6 Eos # (Auto) 0.2 Baso # (Auto) 0.0 PT INR Activated Clotting Time 283 H* D-Dimer Sodium 137 Potassium 4.1 Chloride 106 Carbon Dioxide 21 L Anion Gap 14.1 BUN 24 H Creatinine 1.20 Estimated Creat Clear 83 Estimated GFR 60 Est GFR ( Amer) 73 Glucose 90 D Calcium 8.4 Magnesium Total Bilirubin AST ALT Alkaline Phosphatase Troponin I < 0.01 Total Protein Albumin Globulin Albumin/Globulin Ratio Lipase TSH Free T4 12/31/24 12/30/24 00:28 21:25 WBC 9.5 RBC 4.46 L Hgb 13.7 L Hct 41.1 L MCV 92.2 MCH 30.7 MCHC 33.3 RDW 13.4 Plt Count 265 MPV 8.8 Neut % (Auto) 71.2 Lymph % (Auto) 20.2 [place] % (Auto) 6.0 Eos % (Auto) 2.1 Baso % (Auto) 0.2 Neut # (Auto) 6.8 Lymph # (Auto) 1.9 [place] # (Auto) 0.6 Eos # (Auto) 0.2 Baso # (Auto) 0.0 PT 11.4 INR 1.03 Activated Clotting Time D-Dimer 1.06 H Sodium 139 Potassium 4.6 Chloride 103 Carbon Dioxide 24 Anion Gap 16.6 H BUN 25 H D Creatinine 1.30 H Estimated Creat Clear 81 Estimated GFR 55 L Est GFR ( Amer) 67 Glucose 114 H D Calcium 9.4 Magnesium 2.0 Total Bilirubin 0.9 AST 33 D ALT 22 Alkaline Phosphatase 64 Troponin I < 0.01 < 0.01 Total Protein 7.8 Albumin 4.5 D Globulin 3.3 H Albumin/Globulin Ratio 1.4 Lipase 64 TSH 1.55 Free T4 0.98 DS: Diagnosis Discharge Diagnosis (1) Chest pain: Status: Acute Code(s): R07.9 - Chest pain, unspecified Qualifiers: Chest pain type: unspecified Qualified Code(s): R07.9 - Chest pain, unspecified (2) Unstable angina: Status: Acute Code(s): I20.0 - Unstable angina (3) HFrEF (heart failure with reduced ejection fraction): Status: Acute Code(s): I50.20 - Unspecified systolic (congestive) heart failure (4) COPD (chronic obstructive pulmonary disease): Status: Chronic Code(s): J44.9 - Chronic obstructive pulmonary disease, unspecified Qualifiers: COPD type: emphysema Emphysema type: other Qualified Code(s): J43.8 - Other emphysema (5) Tobacco dependence syndrome: Status: Chronic Code(s): F17.200 - Nicotine dependence, unspecified, uncomplicated (6) CAD (coronary artery disease): Status: Chronic Code(s): I25.10 - Atherosclerotic heart disease of [place] coronary artery without angina pectoris Qualifiers: Associated angina: with stable angina Coronary Disease-Associated Artery/Lesion type: [place] artery [place] vs. transplanted heart: [place] heart Qualified Code(s): I25.118 - Atherosclerotic heart disease of [place] coronary artery with other forms of angina pectoris (7) Essential hypertension: Status: Chronic Code(s): I10 - Essential (primary) hypertension (8) HLD (hyperlipidemia): Status: Chronic Code(s): E78.5 - Hyperlipidemia, unspecified Qualifiers: Hyperlipidemia type: mixed hyperlipidemia Qualified Code(s): E78.2 - Mixed hyperlipidemia (9) PAD (peripheral artery disease): Status: Chronic Code(s): I73.9 - Peripheral vascular disease, unspecified (10) PAF (paroxysmal atrial fibrillation): Status: Acute Code(s): I48.0 - Paroxysmal atrial fibrillation Meds Home Medications and Allergies Home Medications ?Medication ?Instructions ?Recorded ?Confirmed ?Type aspirin 81 mg tablet,delayed 81 mg PO DAILY 04/10/17 History release (Adult Low Dose Aspirin) bupropion HCl 150 mg tablet,12 hr 150 mg PO DAILY 03/2501/09/25 History sustained-release fluticasone fur. 100 mcg-umeclid 1 inh inhalation ROSE Y 10/19/21 01/09/25 History 62.5 mcg-vilant 25 mcg inhalat.powder (Trelegy Ellipta) nitroglycerin 0.4 mg sublingual 0.4 mg sublingual Q5MI FIELD REP PRN chest 09/17/23 01/09/25 History tablet (Nitrostat) pain olmesartan 40 mg tablet 40 mg PO DAILY 09/17/2312/23 History ranolazine 1,000 mg 1,000 mg PO BID 12/29/24 History tablet,extended release,12 hr apixaban 5 mg tablet (Eliquis) 5 mg PO BID #60 tabs 01/09/25 Rx clopidogrel 75 mg tablet 75 mg PO DAILY 30 days #30 t abs 12/30/24 01/09/25 Rx metoprolol succinate 100 mg 100 mg PO HS 30 days #30 t abs 12/30/24 01/09/25 Rx tablet,extended release 24 hr New Prescriptions to Start Prescriptions: Allergies Allergy/AdvReac Type Severity Reaction Status Date / Time rosuvastatin (From Crestor) Allergy Mild Back Pain Verified 12/31/24 00:11 Discharge Plan Disposition Patient Disposition: Home, Self-Care Condition: Fair Follow up Plan Follow up with: Dmitriy Graves PA [Physician Internetworking Technician, Cardiology] - 1 week Referral Note: Call in the morning to make a follow up appointment. Prescriptions/Medication Reconciliation: Continued aspirin [Adult Low Dose Aspirin] 81 mg tablet,delayed release (DR/EC) 81 mg PO DAILY bupropion HCl 150 mg tablet extended release 12 hr 150 mg PO DAILY Trelegy Ellipta 100-62.5-25 mcg blister with device 1 inh IH DAILY ranolazine 1,000 mg tablet extended release 12 hr 1,000 mg PO BID clopidogrel 75 mg Tablet 75 mg PO DAILY 30 Days Qty: 30 0RF Eliquis 5 mg Tablet 5 mg PO BID Qty: 60 0RF metoprolol succinate 100 mg Tablet Extended Release 24 Hr 100 mg PO HS 30 Days Qty: 30 0RF nitroglycerin [Nitrostat] 0.4 mg tablet, sublingual 0.4 mg sublingual Q5MINP PRN (Reason: chest pain) Rx Instructions: do not exceed 3 doses per episode olmesartan 40 mg tablet 40 mg PO DAILY Discontinued ascorbic acid (vitamin C) 1,000 mg tablet 1,000 mg PO DAILY Problem Reconciliation Problems Reviewed?: Yes Patient Discharge Instructions Additional Instructions: Take both aspirin 81 mg and Plavix 75 mg. Print Language: [place] Providers Primary Care Provider: Casimiro Camp Admit Provider: Javan Adams Attending Provider: Javan Adams
[2024-12-31] MEDS: ASPIRIN EC 81MG TABLET 81 MG PO (17:47)
--- NOTE | 2024-12-31 18:19 | PC.NURSE ---
Right wrist band removed and non adherent placed with a tegaderm.
--- NOTE | 2025-01-01 10:10 | SW/DCPLANNER ---
Spoke with patient on the phone. Patient stated that he is doing good. Patient stated that he is aware of his upcoming appointment. Patient stated that he was no prescribed any new medicine. Patient stated that he has no concerns or questions at this time. Uriah Varma
--- NOTE | 2025-02-09 12:43 | PC.NURSE ---
01/21/2025 pt called 2 times and voice mail left. no contact
== END 2024-12-31 18:55 | disposition home or self-care (01) ==
LOC: ER 21:16 → 2ND 23:22
PROVIDERS: Internal Medicine; Nurse Practitioner Family; Admitting Provider Student in an Organized Health Care Education/Training Program; Emergency Provider Student in an Organized Health Care Education/Training Program; PCP Podiatrist Public Medicine; Visit Provider Student in an Organized Health Care Education/Training Program
PROC: 4A023N7 Measurement of Cardiac Sampling and Pressure, Left Heart, Percutaneous Approach (ICD-10-PCS; CPT 93452; principal; 2024-12-31 12:45)
DX: I25.118 Atherosclerotic heart disease of native coronary artery with other forms of angina pectoris (principal); I13.10 Hypertensive heart and chronic kidney disease without heart failure, with stage 1 through stage 4 chronic kidney disease, or unspecified chronic kidney disease; I50.20 Unspecified systolic (congestive) heart failure; N18.9 Chronic kidney disease, unspecified; N17.9 Acute kidney failure, unspecified; R79.89 Other specified abnormal findings of blood chemistry; J43.8 Other emphysema; E78.2 Mixed hyperlipidemia; I73.9 Peripheral vascular disease, unspecified; I48.20 Chronic atrial fibrillation, unspecified; F39 Unspecified mood [affective] disorder; Z79.82 Long term (current) use of aspirin; F17.210 Nicotine dependence, cigarettes, uncomplicated; E66.9 Obesity, unspecified; Z68.31 Body mass index [BMI] 31.0-31.9, adult; Z95.810 Presence of automatic (implantable) cardiac defibrillator; Z79.01 Long term (current) use of anticoagulants; Z95.5 Presence of coronary angioplasty implant and graft
CPT/HCPCS: 36415; 71045; 71275; 80048; 80053; 83690; 83735; 84439; 84443; 84484; 85025; 85347; 85378; 85610; 92928; 93005; 93458; 94640; 99152; 99285; C1725; C1769; C1874; C9600; G0378; J1200; J1644; J2003; J2250; J3010; J7030; J7040; Q9967

== ENCOUNTER 2025-01-09 10:17 | Inpatient (IN) | payer MEDICARE, OTHER, SELFPAY ==
[2025-01-09] VITALS (12 sets, daily range): BP systolic 103–142; BP diastolic 49–68; PULSE 60–85; RESP 16–25; TEMP 36.6–39.4; O2SAT 93–96; BMI 34.3; BMI 32.5
--- NOTE | 2025-01-09 10:26 | ECG_ITS ---
APPROVED REPORT Exam: Resting ECG HR:76 bpm ECG Measurements Heart Rate 76 AXES OR 164 P 80 QRSd 122 QRS 54 QT 295 T 92 QTc 325 Conclusion SINUS RHYTHM SEPTAL MYOCARDIAL INFARCTION , PROBABLY OLD [40+ ms Q WAVE IN V1/V2] ABNORMAL ECG UNCONFIRMED REPORT No ST elevation or depression. Normal sinus rhythm. Electronically signed by : GIO WALTERS, 01/14/2025 10:44:55
--- OUTSIDE RECORDS SUMMARY | 2025-01-09 10:26 | XMS_ITS | Data Portability ---
Author Organization [facility] Address [address] [place] [address] Assessment Encounter Date Assessment Date Assessment LastModified [...] Check List reviewed and printed for patient. [email or web address] Not available 10/29/2024 07:12:52 01/05/2025 01/05/2025 -Medications wer e reviewed and any necessary updates and renewals were made, patient instructed to complete as prescribed. -The potential side effects of medications were discussed. -Counseling was done on care goals and ways to prevent future hospitalizations. -Further treatment per orders listed below. [email or web address] Not available 01/05/2025 13:49:53 Plan of Treatment Reminders Order Date Submit Date Provider Last Modified By Organization Details Last Modified Time Details Appointments Establis hed Patient 20 2025 08:20A M Marycruz Winkler PA-C Not available Not available Not available Lab CMP, serum or plasma 2024 025 [facility], [address], [address], [place], [address], 10/30/2024 08:23:48 lipid panel, serum 2024 025 [facility], [address], [address], [place], [address], 10/30/2024 08:23:48 microalb umin/cre atinine, mass ratio, urine 2024 025 [facility], [address] [place], [address], 10/29/2024 08:42:14 CBC w/ auto diff 2024 025 [facility], [address], [address], [place], [address], 10/30/2024 08:23:47 HbA1c (hemoglo bin A1c), blood 2024 025 [facility], [address], [address], [place], [address], 10/30/2024 08:23:49 PSA, serum or plasma 2024 025 [facility], [address], [address], [place], [address], 10/30/2024 08:23:49 CBC w/ auto diff 2024 025 [facility], [address], [address], [place], [address], 07/07/2024 09:00:36 urinalys is, dipstick 2024 025 [facility], [address] [place], [address], 06/29/2024 11:28:40 CBC w/ auto diff 2024 025 [facility], [address], [address], [place], [address], 06/30/2024 09:34:36 CMP, serum or plasma 2024 025 [facility], [address], [address], [place], [address], 06/30/2024 09:34:37 amylase + lipase, serum 2024 025 [facility], [address], [address], [place], [address], 06/30/2024 09:34:38 noninvas karla colorect al cancer DNA + occult blood screenin g, QL, stool 2024 025 [place] [facility], [address], [address], [place], [address], 06/12/2024 09:52:17 HbA1c (hemoglo bin A1c), blood 2024 025 [facility], [address], [address], [place], [address], 05/06/2024 08:22:25 CMP, serum or plasma 2024 025 [facility] [facility], [address], [address], [place], [address], 05/06/2024 08:22:24 lipid panel, serum 2024 025 [facility], [address], [address], [place], [address], 05/06/2024 08:22:25 microalb umin/cre atinine, mass ratio, urine 2024 025 [facility], [address] [facility], [place], [address], 05/05/2024 09:12:06 CBC w/ auto diff 2024 025 [facility], [address], [address], [place], [address], 05/06/2024 08:22:24 Referral cardiolo gist referral 2024 025 [facility], [address] [facility], [place], [address], 11/03/2024 09:00:22 cardiolo gist referral 2024 025 INGE Gómez MD, [facility] [address], [place], [address], 08/04/2024 12:50:34 Procedures diabetic foot screen (PROC) 2024 025 [email or web address] Not available 11/05/2024 07:33:14 Surgeries None recorded . Imaging XR, chest, 2 view 2024 [facility], [address] [place] [address] , [place], [address], 05/05/2024 15:49:13 Medication Orders Jardianc e 10 mg tablet [address] [facility], [address] [place] [address] , [place], [address], 01/05/2025 14:21:00 nitrogly cerin 0.4 mg sublingu al tablet [address], [address], 07/06/2024 09:05:49 amoxicil juan m 875 mg-potas sium clavulan ate 125 mg tablet [address], [address], 07/06/2024 16:13:42 Patient Targets Encounter Date Encounter Id Patient Goals Patient Target Last Modified By Organization Details Last Modified Time 05/05/2024 [id number] psa drawn 11/15 normal. Not available 05/05/2024 07:45:54 Patient Instructions Encounter Date Encounter Id Patient Instructions Last Modified By Organization Details Last Modified Time 05/05/2024 [id number] smoking cessatio n counseling, greater than 3 minutes up to 10 minutes* [email or web address] Not available 05/12/2024 07:40:42 cough: care instructions [...] instructions Not available 05/05/2024 08:31:57 last eye exam-la st 6 months last dental exam- pt has [...] MEDICATIONS PERSCRIBED Not available 05/05/2024 08:31:56 06/29/2024 [id number] Call with change s RTC or ED if symptoms change or worsen Keep next interval check-up Cont. chronic meds as prescribed Chronic conditions are stable Discussed natural and expected course of this diagnosis and need to alert me if symptoms do not follow expected course or if any worsens [email or web address] Not available 06/29/2024 11:13:57 07/06/2024 [id number] Call with change s RTC or ED if symptoms change or worsen Keep next interval checkup Cont. chronic meds as prescribed Chronic conditions are stable Discussed natural and expected course of this diagnosis and need to alert me if symptoms do not follow expected course or if any worsens [email or web address] Not available 07/06/2024 08:03:27 10/29/2024 [id number] advance directives: care instructions Not available 10/29/2024 [...] CURRENT MEDICATIONS PERSCRIBED Not available 10/29/2024 08:30:56 01/05/2025 [id number] atrial fibrillation: care instructions Not available 01/05/2025 14:21:00 smoking cessatio n counseling, greater than 3 minutes up to 10 minutes* [email or web address] Not available 01/05/2025 15:00:48 CALL W CHANGES RTC OR ED IF SYMPTOMS CHANGE OR WORSEN KEEP NEXT INTERVAL CHECKUP f/u prn Not available 01/05/2025 14:21:27 Reason for Referral Fashion Supervisor Referral for Co ronary arteriosclerosis Referring Physician: Marycruz Mcnair, [facility], Encounter Date: 07/06/2024 Fashion Supervisor Referral for He art disease Referring Physician: Marycruz Winkler [facility], Encounter Date: 10/29/2024 Results Created Date Observation Date Name Description Value Unit Range Abnormal Flag Note LastModifiedBy Organization Detail LastModifiedTime 05/05/1905/06/2024 CBC WITH DIFFE RENTI AL/PL ATELE T WBC 9.0 x10e3 /uL 3.4-10 .8 normal Not Available [facility] ([facility]) [address] [place], [address], 05/06/2024 08:22:24 05/05/19 25 05/06/2024 CBC WITH DIFFE RENTI AL/PL ATELE T RBC 4.87 x10e6 /uL 4.14-5 .80 normal Not Available [facility] ([facility]) [address] [place], [address], 05/06/2024 08:22:24 05/05/19 25 05/06/2024 CBC WITH DIFFE RENTI AL/PL ATELE T hemoglobin 15.3 g/dL 13.0-1 7.7 normal Not Available [facility] ([facility]) [address] [place], [address], 05/06/2024 08:22:24 05/05/19 25 05/06/2024 CBC WITH DIFFE RENTI AL/PL ATELE T hematocrit 46.0 % 37.5-5 1.0 normal Not Available [facility] ([facility]) [address] [place], [address], 05/06/2024 08:22:24 05/05/19 25 05/06/2024 CBC WITH DIFFE RENTI AL/PL ATELE T MCV 95 fL 79-97 normal Not Available [facility] ([facility]) [address] [facility], [place], [address], 05/06/2024 08:22:24 05/05/19 25 05/06/2024 CBC WITH DIFFE RENTI AL/PL ATELE T MCH 31.4 pg 26.6-3 3.0 normal Not Available [facility] ([facility]) [address] [facility], [place], [address], 05/06/2024 08:22:24 05/05/19 25 05/06/2024 CBC WITH DIFFE RENTI AL/PL ATELE T MCHC 33.3 g/dL 31.5-3 5.7 normal Not Available [facility] ([facility]) [address] [facility], [place], [address], 05/06/2024 08:22:24 05/05/19 25 05/06/2024 CBC WITH DIFFE RENTI AL/PL ATELE T RDW 13.1 % 11.6-1 5.4 Not Available [facility] ([facility]) [address] [place], [address], 05/06/2024 08:22:24 05/05/19 25 05/06/2024 CBC WITH DIFFE RENTI AL/PL ATELE T platelets 301 x10e3 /uL 150-45 0 normal Not Available [facility] ([facility]) [address] [facility], [place], [address], 05/06/2024 08:22:24 05/05/19 25 05/06/2024 CBC WITH DIFFE RENTI AL/PL ATELE T neutrophils 56 % not estab. normal Not Available [facility] ([facility]) [address] [facility], [place], [address], 05/06/2024 08:22:24 05/05/19 25 05/06/2024 CBC WITH DIFFE RENTI AL/PL ATELE T lymphs 33 % not estab. normal Not Available [facility] ([facility]) [address] [place], [address], 05/06/2024 08:22:24 05/05/19 25 05/06/2024 CBC WITH DIFFE RENTI AL/PL ATELE T monocytes 8 % not estab. normal Not Available [facility] ([facility]) [address] [place], [address], 05/06/2024 08:22:24 05/05/19 25 05/06/2024 CBC WITH DIFFE RENTI AL/PL ATELE T eos 2 % not estab. normal Not Available [facility] ([facility]) [address] [place], [address], 05/06/2024 08:22:24 05/05/19 25 05/06/2024 CBC WITH DIFFE RENTI AL/PL ATELE T basos 0 % not estab. normal Not Available [facility] ([facility]) [address] [place], [address], 05/06/2024 08:22:24 05/05/19 25 05/06/2024 CBC WITH DIFFE RENTI AL/PL ATELE T immature cells DRAFTING ENGINEER Not Available [facility] ([facility]) [address] [place], [address], 05/06/2024 08:22:24 05/05/19 25 05/06/2024 CBC WITH DIFFE RENTI AL/PL ATELE T neutrophils (absolute) 5.0 x10e3 /uL 1.4-7. 0 normal Not Available [facility] ([facility]) [address] [place], [address], 05/06/2024 08:22:24 05/05/19 25 05/06/2024 CBC WITH DIFFE RENTI AL/PL ATELE T lymphs (absolute) 3.0 x10e3 /uL 0.7-3. 1 normal Not Available [facility] ([facility]) [address] [place], [address], 05/06/2024 08:22:24 05/05/19 25 05/06/2024 CBC WITH DIFFE RENTI AL/PL ATELE T monocytes(ab solute) 0.8 x10e3 /uL 0.1-0. 9 normal Not Available [facility] ([facility]) [address] [facility], [place], [address], 05/06/2024 08:22:24 05/05/19 25 05/06/2024 CBC WITH DIFFE RENTI AL/PL ATELE T eos (absolute) 0.2 x10e3 /uL 0.0-0. 4 normal Not Available [facility] ([facility]) [address] [facility], [place], [address], 05/06/2024 08:22:24 05/05/19 25 05/06/2024 CBC WITH DIFFE RENTI AL/PL ATELE T baso (absolute) 0.0 x10e3 /uL 0.0-0. 2 normal Not Available [facility] ([facility]) [address] [place], [address], 05/06/2024 08:22:24 05/05/19 25 05/06/2024 CBC WITH DIFFE RENTI AL/PL ATELE T immature granulocytes 1 % not estab. Not Available [facility] ([facility]) [address] [facility], [place], [address], 05/06/2024 08:22:24 05/05/19 25 05/06/2024 CBC WITH DIFFE RENTI AL/PL ATELE T immature grans (abs) 0.1 x10e3 /uL 0.0-0. 1 Not Available [facility] ([facility]) [address] [place], [address], 05/06/2024 08:22:24 05/05/19 25 05/06/2024 CBC WITH DIFFE RENTI AL/PL ATELE T NRBC DRAFTING ENGINEER Not Available [facility] ([facility]) [address] [facility] [place], [address], 05/06/2024 08:22:24 05/05/19 25 05/06/2024 CBC WITH DIFFE DEJAH AL/NAPOLEON GREENBERG T hematology comments: DRAFTING ENGINEER Not Available [facility] ([facility]) [address] [facility] [place], [address], 05/06/2024 08:22:24 05/05/19 25 05/06/2024 COMP. METAB OLIC PANEL (14) glucose 82 mg/dL 70-99 normal Not Available [facility] ([facility]) [address] [facility] [place], [address], 05/06/2024 08:22:24 05/05/19 25 05/06/2024 COMP. METAB OLIC PANEL (14) BUN 35 mg/dL 8-27 above high normal Not Available [facility] ([facility]) [address] [facility] [place], [address], 05/06/2024 08:22:24 05/05/19 25 05/06/2024 COMP. METAB OLIC PANEL (14) creatinine 1.64 mg/dL 0.76-1 .27 above high normal Not Available [facility] ([facility]) [address] [facility] [place], [address], 05/06/2024 08:22:24 05/05/19 25 05/06/2024 COMP. METAB OLIC PANEL (14) eGFR 46 mL/mi n/1.7 3 >59 below low normal Not Available [facility] ([facility]) [address] [facility] [place], [address], 05/06/2024 08:22:24 05/05/19 25 05/06/2024 COMP. METAB OLIC PANEL (14) BUN/creatini ne ratio 21 10-24 normal Not Available [facility] ([facility]) [address] [facility] [place], [address], 05/06/2024 08:22:24 05/05/19 25 05/06/2024 COMP. METAB OLIC PANEL (14) sodium 137 mmol/ L 134-14 4 normal Not Available [facility] ([facility]) [address] [facility] [place], [address], 05/06/2024 08:22:24 05/05/19 25 05/06/2024 COMP. METAB OLIC PANEL (14) potassium 4.8 mmol/ L 3.5-5. 2 normal Not Available [facility] ([facility]) [address] [facility] [place], [address], 05/06/2024 08:22:24 05/05/19 25 05/06/2024 COMP. METAB OLIC PANEL (14) chloride 101 mmol/ L 96-106 normal Not Available [facility] ([facility]) [address] [facility] [place], [address], 05/06/2024 08:22:24 05/05/19 25 05/06/2024 COMP. METAB OLIC PANEL (14) carbon dioxide, total 22 mmol/ L 20-29 normal Not Available [facility] ([facility]) [address] [facility] [place], [address], 05/06/2024 08:22:24 05/05/19 25 05/06/2024 COMP. METAB OLIC PANEL (14) calcium 9.8 mg/dL 8.6-10 .2 normal Not Available [facility] ([facility]) [address] [facility] [place], [address], 05/06/2024 08:22:24 05/05/19 25 05/06/2024 COMP. METAB OLIC PANEL (14) protein, total 6.9 g/dL 6.0-8. 5 normal Not Available [facility] ([facility]) [address] [facility] [place], [address], 05/06/2024 08:22:24 05/05/19 25 05/06/2024 COMP. METAB OLIC PANEL (14) albumin 4.3 g/dL 3.9-4. 9 normal Not Available [facility] ([facility]) [address] [place], [address], 05/06/2024 08:22:24 05/05/19 25 05/06/2024 COMP. METAB OLIC PANEL (14) globulin, total 2.6 g/dL 1.5-4. 5 Not Available [facility] ([facility]) [address] [place], [address], 05/06/2024 08:22:24 05/05/19 25 05/06/2024 COMP. METAB OLIC PANEL (14) bilirubin, total 0.4 mg/dL 0.0-1. 2 normal Not Available [facility] ([facility]) [address] [place], [address], 05/06/2024 08:22:24 05/05/19 25 05/06/2024 COMP. METAB OLIC PANEL (14) alkaline phosphatase 67 IU/L 44-121 normal Not Available [facility] ([facility]) [address] [place], [address], 05/06/2024 08:22:24 05/05/19 25 05/06/2024 COMP. METAB OLIC PANEL (14) AST (SGOT) 12 IU/L 0-40 normal Not Available [facility] ([facility]) [address] [place], [address], 05/06/2024 08:22:24 05/05/19 25 05/06/2024 COMP. METAB OLIC PANEL (14) ALT (SGPT) 16 IU/L 0-44 normal Not Available [facility] ([facility]) [address] [place], [address], 05/06/2024 08:22:24 05/05/19 25 05/06/2024 LIPID PANEL cholesterol, total 231 mg/dL 100-19 9 above high normal Not Available [facility] ([facility]) [address] [place], [address], 05/06/2024 08:22:25 05/05/19 25 05/06/2024 LIPID PANEL triglyceride s 231 mg/dL 0-149 above high normal Not Available [facility] ([facility]) [address] [place], [address], 05/06/2024 08:22:25 05/05/19 25 05/06/2024 LIPID PANEL HDL cholesterol 36 mg/dL >39 below low normal Not Available [facility] ([facility]) [address] [place], [address], 05/06/2024 08:22:25 05/05/19 25 05/06/2024 LIPID PANEL VLDL cholesterol wen 43 mg/dL 5-40 above high normal Not Available [facility] ([facility]) [address] [place], [address], 05/06/2024 08:22:25 05/05/19 25 05/06/2024 LIPID PANEL LDL chol calc ([facility]) 152 mg/dL 0-99 above high normal Not Available [facility] ([facility]) [address] [place], [address], 05/06/2024 08:22:25 05/05/19 25 05/06/2024 LIPID PANEL LDL calc comment: DRAFTING ENGINEER Not Available [facility] ([facility]) [address] [place], [address], 05/06/2024 08:22:25 05/05/19 25 05/06/2024 HEMOG LOBIN A1C hemoglobin A1C 6.0 % 4.8-5. 6 above high normal Predi abete s: 5.7 - 6.4 Diabe suly: >6.4 Glyce vivi contr ol for adult s with diabe suly: <7.0 Not Available [facility] ([facility]) [address] [place], [address], 05/06/2024 08:22:25 05/05/19 25 05/05/2024 micro album in/cr eatin ine, mass ratio , urine Microalbumin 30mg Not Available [facility] [address], [address], 05/05/2024 08:31:40 05/05/19 25 05/05/2024 micro album in/cr eatin ine, mass ratio , urine Creatinine 100mg Not Available [facility] [address], [place], [address], 05/05/2024 08:31:40 05/05/19 25 05/05/2024 micro album in/cr eatin ine, mass ratio , urine Ratio <30mg normal Not Available [facility] [address], [address], 05/05/2024 08:31:40 06/09/19 25 06/08/2024 COLOG UARD cologuard result reportable Negati ve negati ve normal NEGAT KARAL TEST RESUL T. A negat karla Colog uard resul t indic ates a low likel ihood that a color ectal cance r (CRC) or advan kimberlee adeno ma (jazmyne omato us polyp s with more advan kimberlee pre-m align ant featu res) is prese nt. The chan e that a perso n with a [...] of 10,00 0 indiv idual s at [facility] risk for color ectal cance r who were scree alistair with both Colog uard and colon oscop y. (Celeste Kenyon al, N Engl J Med 2014; 370(1 4):12 86-12 97) The jatinder l value (refe rence range ) for this assay is negat karla. COLOG UARD RE-SC REECHEMA NAVAS RECOM MENDA TION: Perio dic color ectal cance r scree wally is an impor tant part of preve ntive healt hcare for asymp tomat ic indiv idual s at [facility] risk for color ectal cance r. Follo wing a negat karla Colog uard resul t, the Ameri can Cance r Socie ty and U.S. Multi -Soci ety Task Force scree wally guide lines recom mend a Colog uard re-sc reeni ng inter gustavo of 3 years . Refer ences : Ameri can Cance r Socie ty Guide line for Color ectal Cance r Scree wally: https ://kiki w.can cer.o rg/ca ncer/ colon -rect al-ca ncer/ detec tion- diagn osis- stagi ng/ac s-rec ommen datio ns.ht ml.; Jarred DK, Myles carlson CR, Linda dailey JK, Color ectal Cance r Scree wally: Recom menda tions for Physi cians and Patie nts from the U.S. Multi -Soci ety Task Force on Color ectal Cance r Scree wally , Am Graeme landa y 2017; 112:1 016-1 030. TEST DESCR IPTIO N: [place] site algor ithmi c ahmet sis of stool DNA-b iomar kers with hemog lobin immun oassa y. [...] years or older , who are at [facility]-ri sk for color ectal cance r (CRC) . Colog uard has been appro masha for use by the U.S. FDA. The perfo rmanc e of Colog uard was estab lishe d in a cross secti onal study of [facility] sk adult s aged 50-84 . Colog uard perfo rmanc e in patie nts ages 45 to 49 years was estim ated by elijah leo sis of near- age group s. Colon [...] cross -sect ional scree wally study of 0 indiv idual s at [facility] risk for color ectal cance r who [...] d can be acces sed at the follo wing locat ion: www.e xactl abs.c om/re sults . Addit ional descr iptio n of the Colog uard test proce ss, warni ngs and preca ution s can be found at www.c vaniaogu christen.c om. Not Available [facility] [address], [place], [address], 06/12/2024 09:52:17 06/30/19 25 06/30/2024 CBC WITH DIFFE RENTI AL/PL ATELE T WBC 11.8 x10e3 /uL 3.4-10 .8 above high normal Not Available [facility] ([facility]) [address] [facility] [place], [address], 06/30/2024 09:34:36 06/30/19 25 06/30/2024 CBC WITH DIFFE RENTI AL/PL ATELE T RBC 4.24 x10e6 /uL 4.14-5 .80 normal Not Available [facility] ([facility]) [address] [place], [address], 06/30/2024 09:34:36 06/30/19 25 06/30/2024 CBC WITH DIFFE RENTI AL/PL ATELE T hemoglobin 13.3 g/dL 13.0-1 7.7 normal Not Available [facility] ([facility]) [address] [place], [address], 06/30/2024 09:34:36 06/30/19 25 06/30/2024 CBC WITH DIFFE RENTI AL/PL ATELE T hematocrit 40.0 % 37.5-5 1.0 normal Not Available [facility] ([facility]) [address] [place], [address], 06/30/2024 09:34:36 06/30/19 25 06/30/2024 CBC WITH DIFFE RENTI AL/PL ATELE T MCV 94 fL 79-97 normal Not Available [facility] ([facility]) [address] [place], [address], 06/30/2024 09:34:36 06/30/19 25 06/30/2024 CBC WITH DIFFE RENTI AL/PL ATELE T MCH 31.4 pg 26.6-3 3.0 normal Not Available [facility] ([facility]) [address] [facility] [place], [address], 06/30/2024 09:34:36 06/30/19 25 06/30/2024 CBC WITH DIFFE RENTI AL/PL ATELE T MCHC 33.3 g/dL 31.5-3 5.7 normal Not Available [facility] ([facility]) [address] [facility] [place], [address], 06/30/2024 09:34:36 06/30/19 25 06/30/2024 CBC WITH DIFFE RENTI AL/PL ATELE T RDW 13.5 % 11.6-1 5.4 Not Available [facility] ([facility]) [address] [facility] [place], [address], 06/30/2024 09:34:36 06/30/19 25 06/30/2024 CBC WITH DIFFE RENTI AL/PL ATELE T platelets 254 x10e3 /uL 150-45 0 normal Not Available [facility] ([facility]) [address] [facility] [place], [address], 06/30/2024 09:34:36 06/30/19 25 06/30/2024 CBC WITH DIFFE RENTI AL/PL ATELE T neutrophils 73 % not estab. normal Not Available [facility] ([facility]) [address] [facility] [place], [address], 06/30/2024 09:34:36 06/30/19 25 06/30/2024 CBC WITH DIFFE RENTI AL/PL ATELE T lymphs 19 % not estab. normal Not Available [facility] ([facility]) [address] [facility] [place], [address], 06/30/2024 09:34:36 06/30/19 25 06/30/2024 CBC WITH DIFFE RENTI AL/PL ATELE T monocytes 7 % not estab. normal Not Available [facility] ([facility]) [address] [place], [address], 06/30/2024 09:34:36 06/30/19 25 06/30/2024 CBC WITH DIFFE RENTI AL/PL ATELE T eos 1 % not estab. normal Not Available [facility] ([facility]) [address] [facility] [place], [address], 06/30/2024 09:34:36 06/30/19 25 06/30/2024 CBC WITH DIFFE RENTI AL/PL ATELE T basos 0 % not estab. normal Not Available [facility] ([facility]) [address] [facility] [place], [address], 06/30/2024 09:34:36 06/30/19 25 06/30/2024 CBC WITH DIFFE RENTI AL/PL ATELE T immature cells DRAFTING ENGINEER Not Available [facility] ([facility]) [address] [place], [address], 06/30/2024 09:34:36 06/30/19 25 06/30/2024 CBC WITH DIFFE RENTI AL/PL ATELE T neutrophils (absolute) 8.5 x10e3 /uL 1.4-7. 0 above high normal Not Available [facility] ([facility]) [address] [place], [address], 06/30/2024 09:34:36 06/30/19 25 06/30/2024 CBC WITH DIFFE RENTI AL/PL ATELE T lymphs (absolute) 2.3 x10e3 /uL 0.7-3. 1 normal Not Available [facility] ([facility]) [address] [place], [address], 06/30/2024 09:34:36 06/30/19 25 06/30/2024 CBC WITH DIFFE RENTI AL/PL ATELE T monocytes(ab solute) 0.9 x10e3 /uL 0.1-0. 9 normal Not Available [facility] ([facility]) [address] [facility], [place], [address], 06/30/2024 09:34:36 06/30/19 25 06/30/2024 CBC WITH DIFFE RENTI AL/PL ATELE T eos (absolute) 0.2 x10e3 /uL 0.0-0. 4 normal Not Available [facility] ([facility]) [address] [facility], [place], [address], 06/30/2024 09:34:36 06/30/19 25 06/30/2024 CBC WITH DIFFE RENTI AL/PL ATELE T baso (absolute) 0.0 x10e3 /uL 0.0-0. 2 normal Not Available [facility] ([facility]) [address] [facility], [place], [address], 06/30/2024 09:34:36 06/30/19 25 06/30/2024 CBC WITH DIFFE RENTI AL/PL ATELE T immature granulocytes 0 % not estab. Not Available [facility] ([facility]) [address] [facility], [place], [address], 06/30/2024 09:34:36 06/30/19 25 06/30/2024 CBC WITH DIFFE RENTI AL/PL ATELE T immature grans (abs) 0.0 x10e3 /uL 0.0-0. 1 Not Available [facility] ([facility]) [address] [facility], [place], [address], 06/30/2024 09:34:36 06/30/19 25 06/30/2024 CBC WITH DIFFE RENTI AL/PL ATELE T NRBC DRAFTING ENGINEER Not Available [facility] ([facility]) [address] [facility], [place], [address], 06/30/2024 09:34:36 06/30/19 25 06/30/2024 CBC WITH DIFFE RENTI AL/PL ATELE T hematology comments: DRAFTING ENGINEER Not Available [facility] ([facility]) [address] [facility] [place], [address], 06/30/2024 09:34:36 06/30/19 25 06/30/2024 COMP. METAB OLIC PANEL (14) glucose 90 mg/dL 70-99 normal Not Available [facility] ([facility]) [address] [facility] [place], [address], 06/30/2024 09:34:37 06/30/19 25 06/30/2024 COMP. METAB OLIC PANEL (14) BUN 24 mg/dL 8-27 normal Not Available [facility] ([facility]) [address] [facility] [place], [address], 06/30/2024 09:34:37 06/30/19 25 06/30/2024 COMP. METAB OLIC PANEL (14) creatinine 1.47 mg/dL 0.76-1 .27 above high normal Not Available [facility] ([facility]) [address] [facility], [place], [address], 06/30/2024 09:34:37 06/30/19 25 06/30/2024 COMP. METAB OLIC PANEL (14) eGFR 52 mL/mi n/1.7 3 >59 below low normal Not Available [facility] ([facility]) [address] [place], [address], 06/30/2024 09:34:37 06/30/19 25 06/30/2024 COMP. METAB OLIC PANEL (14) BUN/creatini ne ratio 16 10-24 normal Not Available [facility] ([facility]) [address] [facility] [place], [address], 06/30/2024 09:34:37 06/30/19 25 06/30/2024 COMP. METAB OLIC PANEL (14) sodium 138 mmol/ L 134-14 4 normal Not Available [facility] ([facility]) [address] [place], [address], 06/30/2024 09:34:37 06/30/19 25 06/30/2024 COMP. METAB OLIC PANEL (14) potassium 4.5 mmol/ L 3.5-5. 2 normal Not Available [facility] ([facility]) [address] [facility] [place], [address], 06/30/2024 09:34:37 06/30/19 25 06/30/2024 COMP. METAB OLIC PANEL (14) chloride 103 mmol/ L 96-106 normal Not Available [facility] ([facility]) [address] [facility] [place], [address], 06/30/2024 09:34:37 06/30/19 25 06/30/2024 COMP. METAB OLIC PANEL (14) carbon dioxide, total 18 mmol/ L 20-29 below low normal Not Available [facility] ([facility]) [address] [facility] [place], [address], 06/30/2024 09:34:37 06/30/19 25 06/30/2024 COMP. METAB OLIC PANEL (14) calcium 9.1 mg/dL 8.6-10 .2 normal Not Available [facility] ([facility]) [address] [facility] [place], [address], 06/30/2024 09:34:37 06/30/19 25 06/30/2024 COMP. METAB OLIC PANEL (14) protein, total 6.9 g/dL 6.0-8. 5 normal Not Available [facility] ([facility]) [address] [facility] [place], [address], 06/30/2024 09:34:37 06/30/19 25 06/30/2024 COMP. METAB OLIC PANEL (14) albumin 4.3 g/dL 3.9-4. 9 normal Not Available [facility] ([facility]) [address] [facility] [place], [address], 06/30/2024 09:34:37 06/30/19 25 06/30/2024 COMP. METAB OLIC PANEL (14) globulin, total 2.6 g/dL 1.5-4. 5 Not Available [facility] ([facility]) [address] [facility] [place], [address], 06/30/2024 09:34:37 06/30/19 25 06/30/2024 COMP. METAB OLIC PANEL (14) bilirubin, total 0.3 mg/dL 0.0-1. 2 normal Not Available [facility] ([facility]) [address] [facility] [place], [address], 06/30/2024 09:34:37 06/30/19 25 06/30/2024 COMP. METAB OLIC PANEL (14) alkaline phosphatase 72 IU/L 44-121 normal Not Available [facility] ([facility]) [address] [facility] [place], [address], 06/30/2024 09:34:37 06/30/19 25 06/30/2024 COMP. METAB OLIC PANEL (14) AST (SGOT) 14 IU/L 0-40 normal Not Available [facility] ([facility]) [address] [facility] [place], [address], 06/30/2024 09:34:37 06/30/19 25 06/30/2024 COMP. METAB OLIC PANEL (14) ALT (SGPT) 16 IU/L 0-44 normal Not Available [facility] ([facility]) [address] [facility] [place], [address], 06/30/2024 09:34:37 06/30/19 25 06/30/2024 EVELIN+L IPASE amylase 38 U/L 31-110 normal Not Available [facility] ([facility]) [address] [facility] [place], [address], 06/30/2024 09:34:38 06/30/19 25 06/30/2024 EVELIN+L IPASE lipase 21 U/L 13-78 normal Not Available [facility] ([facility]) [address] [facility] [place], [address], 06/30/2024 09:34:38 06/30/19 25 06/29/2024 urina lysis , dipst ick Leukocytes Negati ve Not Available [address], [address], 06/29/2024 11:14:37 06/30/19 25 06/29/2024 urina lysis , dipst ick Nitrite negati ve Not Available [address], [address], 06/29/2024 11:14:37 06/30/19 25 06/29/2024 urina lysis , dipst ick Urobilinogen .2 Not Available [place] [place] [address], [address], 06/29/2024 11:14:37 06/30/19 25 06/29/2024 urina lysis , dipst ick Protein Negati ve Not Available [address], [address], 06/29/2024 11:14:37 06/30/19 25 06/29/2024 urina lysis , dipst ick pH 5.5 Not Available [address], [address], 06/29/2024 11:14:37 06/30/19 25 06/29/2024 urina lysis , dipst ick Blood Negati ve Not Available [address], [address], 06/29/2024 11:14:37 06/30/19 25 06/29/2024 urina lysis , dipst ick Specific [place] 1.025 Not Available [place] [address], [address], 06/29/2024 11:14:37 06/30/19 25 06/29/2024 urina lysis , dipst ick Ketone Negati ve Not Available [address], [address], 06/29/2024 11:14:37 06/30/19 25 06/29/2024 urina lysis , dipst ick Bilirubin Negati ve Not Available [address], [place], [address], 06/29/2024 11:14:37 06/30/19 25 06/29/2024 urina lysis , dipst ick Glucose Negati ve Not Available [address], [address], 06/29/2024 11:14:37 06/30/19 25 06/29/2024 urina lysis , dipst ick Appearance Clear Not Available [place] [address], [address], 06/29/2024 11:14:37 06/30/19 25 06/29/2024 urina lysis , dipst ick Color Yellow Not Available [address], [address], 06/29/2024 11:14:37 07/07/19 25 07/07/2024 CBC WITH DIFFE RENTI AL/PL ATELE T WBC 7.8 x10e3 /uL 3.4-10 .8 normal Not Available [facility] ([facility]) [address] [facility], [place], [address], 07/07/2024 09:00:36 07/07/19 25 07/07/2024 CBC WITH DIFFE RENTI AL/PL ATELE T RBC 4.27 x10e6 /uL 4.14-5 .80 normal Not Available [facility] ([facility]) [address] [facility], [place], [address], 07/07/2024 09:00:36 07/07/1907/07/2024 CBC WITH DIFFE RENTI AL/PL ATELE T hemoglobin 13.4 g/dL 13.0-1 7.7 normal Not Available [facility] ([facility]) [address] [facility], [place], [address], 07/07/2024 09:00:36 07/07/1907/07/2024 CBC WITH DIFFE RENTI AL/PL ATELE T hematocrit 40.7 % 37.5-5 1.0 normal Not Available [facility] ([facility]) [address] [facility], [place], [address], 07/07/2024 09:00:36 07/07/1907/07/2024 CBC WITH DIFFE RENTI AL/PL ATELE T MCV 95 fL 79-97 normal Not Available [facility] ([facility]) [address] [place], [address], 07/07/2024 09:00:36 07/07/1907/07/2024 CBC WITH DIFFE RENTI AL/PL ATELE T MCH 31.4 pg 26.6-3 3.0 normal Not Available [facility] ([facility]) [address] [place], [address], 07/07/2024 09:00:36 07/07/1907/07/2024 CBC WITH DIFFE RENTI AL/PL ATELE T MCHC 32.9 g/dL 31.5-3 5.7 normal Not Available [facility] ([facility]) [address] [place], [address], 07/07/2024 09:00:36 07/07/19 25 07/07/2024 CBC WITH DIFFE RENTI AL/PL ATELE T RDW 13.4 % 11.6-1 5.4 Not Available [facility] ([facility]) [address] [facility] [place], [address], 07/07/2024 09:00:36 07/07/19 25 07/07/2024 CBC WITH DIFFE RENTI AL/PL ATELE T platelets 283 x10e3 /uL 150-45 0 normal Not Available [facility] ([facility]) [address] [facility], [place], [address], 07/07/2024 09:00:36 07/07/19 25 07/07/2024 CBC WITH DIFFE RENTI AL/PL ATELE T neutrophils 61 % not estab. normal Not Available [facility] ([facility]) [address] [facility], [place], [address], 07/07/2024 09:00:36 07/07/19 25 07/07/2024 CBC WITH DIFFE RENTI AL/PL ATELE T lymphs 30 % not estab. normal Not Available [facility] ([facility]) [address] [facility], [place], [address], 07/07/2024 09:00:36 07/07/19 25 07/07/2024 CBC WITH DIFFE RENTI AL/PL ATELE T monocytes 7 % not estab. normal Not Available [facility] ([facility]) [address] [facility], [place], [address], 07/07/2024 09:00:36 07/07/1907/07/2024 CBC WITH DIFFE RENTI AL/PL ATELE T eos 2 % not estab. normal Not Available [facility] ([facility]) [address] [place], [address], 07/07/2024 09:00:36 07/07/19 25 07/07/2024 CBC WITH DIFFE RENTI AL/PL ATELE T basos 0 % not estab. normal Not Available [facility] ([facility]) [address] [place], [address], 07/07/2024 09:00:36 07/07/19 25 07/07/2024 CBC WITH DIFFE RENTI AL/PL ATELE T immature cells DRAFTING ENGINEER Not Available [facility] ([facility]) [address] [place], [address], 07/07/2024 09:00:36 07/07/19 25 07/07/2024 CBC WITH DIFFE RENTI AL/PL ATELE T neutrophils (absolute) 4.7 x10e3 /uL 1.4-7. 0 normal Not Available [facility] ([facility]) [address] [place], [address], 07/07/2024 09:00:36 07/07/19 25 07/07/2024 CBC WITH DIFFE RENTI AL/PL ATELE T lymphs (absolute) 2.3 x10e3 /uL 0.7-3. 1 normal Not Available [facility] ([facility]) [address] [place], [address], 07/07/2024 09:00:36 07/07/1907/07/2024 CBC WITH DIFFE RENTI AL/PL ATELE T monocytes(ab solute) 0.5 x10e3 /uL 0.1-0. 9 normal Not Available [facility] ([facility]) [address] [place], [address], 07/07/2024 09:00:36 07/07/1907/07/2024 CBC WITH DIFFE RENTI AL/PL ATELE T eos (absolute) 0.2 x10e3 /uL 0.0-0. 4 normal Not Available [facility] ([facility]) [address] [place], [address], 07/07/2024 09:00:36 07/07/19 25 07/07/2024 CBC WITH DIFFE RENTI AL/PL ATELE T baso (absolute) 0.0 x10e3 /uL 0.0-0. 2 normal Not Available [facility] ([facility]) [address] [facility], [place], [address], 07/07/2024 09:00:36 07/07/19 25 07/07/2024 CBC WITH DIFFE RENTI AL/PL ATELE T immature granulocytes 0 % not estab. Not Available [facility] ([facility]) [address] [facility], [place], [address], 07/07/2024 09:00:36 07/07/19 25 07/07/2024 CBC WITH DIFFE RENTI AL/PL ATELE T immature grans (abs) 0.0 x10e3 /uL 0.0-0. 1 Not Available [facility] ([facility]) [address] [facility], [place], [address], 07/07/2024 09:00:36 07/07/19 25 07/07/2024 CBC WITH DIFFE RENTI AL/PL ATELE T NRBC DRAFTING ENGINEER Not Available [facility] ([facility]) [address] [facility], [place], [address], 07/07/2024 09:00:36 07/07/1907/07/2024 CBC WITH DIFFE RENTI AL/PL ATELE T hematology comments: DRAFTING ENGINEER Not Available [facility] ([facility]) [address] [facility], [place], [address], 07/07/2024 09:00:36 10/30/1910/30/2024 CBC WITH DIFFE RENTI AL/PL ATELE T WBC 7.7 x10e3 /uL 3.4-10 .8 normal Not Available [facility] ([facility]) [address] [facility], [place], [address], 10/30/2024 08:23:47 10/30/19 25 10/30/2024 CBC WITH DIFFE RENTI AL/PL ATELE T RBC 4.34 x10e6 /uL 4.14-5 .80 normal Not Available [facility] ([facility]) [address] [place], [address], 10/30/2024 08:23:47 10/30/19 25 10/30/2024 CBC WITH DIFFE RENTI AL/PL ATELE T hemoglobin 13.6 g/dL 13.0-1 7.7 normal Not Available [facility] ([facility]) [address] [place], [address], 10/30/2024 08:23:47 10/30/19 25 10/30/2024 CBC WITH DIFFE RENTI AL/PL ATELE T hematocrit 43.3 % 37.5-5 1.0 normal Not Available [facility] ([facility]) [address] [place], [address], 10/30/2024 08:23:47 10/30/19 25 10/30/2024 CBC WITH DIFFE RENTI AL/PL ATELE T MCV 100 fL 79-97 above high normal Not Available [facility] ([facility]) [address] [place], [address], 10/30/2024 08:23:47 10/30/19 25 10/30/2024 CBC WITH DIFFE RENTI AL/PL ATELE T MCH 31.3 pg 26.6-3 3.0 normal Not Available [facility] ([facility]) [address] [place], [address], 10/30/2024 08:23:47 10/30/19 25 10/30/2024 CBC WITH DIFFE RENTI AL/PL ATELE T MCHC 31.4 g/dL 31.5-3 5.7 below low normal Not Available [facility] ([facility]) [address] [place], [address], 10/30/2024 08:23:47 10/30/19 25 10/30/2024 CBC WITH DIFFE RENTI AL/PL ATELE T RDW 13.3 % 11.6-1 5.4 Not Available [facility] ([facility]) [address] [facility], [place], [address], 10/30/2024 08:23:47 10/30/19 25 10/30/2024 CBC WITH DIFFE RENTI AL/PL ATELE T platelets 236 x10e3 /uL 150-45 0 normal Not Available [facility] ([facility]) [address] [facility], [place], [address], 10/30/2024 08:23:47 10/30/19 25 10/30/2024 CBC WITH DIFFE RENTI AL/PL ATELE T neutrophils 60 % not estab. normal Not Available [facility] ([facility]) [address] [facility], [place], [address], 10/30/2024 08:23:47 10/30/19 25 10/30/2024 CBC WITH DIFFE RENTI AL/PL ATELE T lymphs 30 % not estab. normal Not Available [facility] ([facility]) [address] [facility], [place], [address], 10/30/2024 08:23:47 10/30/19 25 10/30/2024 CBC WITH DIFFE RENTI AL/PL ATELE T monocytes 8 % not estab. normal Not Available [facility] ([facility]) [address] [facility], [place], [address], 10/30/2024 08:23:47 10/30/19 25 10/30/2024 CBC WITH DIFFE RENTI AL/PL ATELE T eos 2 % not estab. normal Not Available [facility] ([facility]) [address] [facility], [place], [address], 10/30/2024 08:23:47 10/30/19 25 10/30/2024 CBC WITH DIFFE RENTI AL/PL ATELE T basos 0 % not estab. normal Not Available [facility] ([facility]) [address] [place], [address], 10/30/2024 08:23:47 10/30/19 25 10/30/2024 CBC WITH DIFFE RENTI AL/PL ATELE T immature cells DRAFTING ENGINEER Not Available [facility] ([facility]) [address] [facility], [place], [address], 10/30/2024 08:23:47 10/30/19 25 10/30/2024 CBC WITH DIFFE RENTI AL/PL ATELE T neutrophils (absolute) 4.6 x10e3 /uL 1.4-7. 0 normal Not Available [facility] ([facility]) [address] [place], [address], 10/30/2024 08:23:47 10/30/19 25 10/30/2024 CBC WITH DIFFE RENTI AL/PL ATELE T lymphs (absolute) 2.3 x10e3 /uL 0.7-3. 1 normal Not Available [facility] ([facility]) [address] [place], [address], 10/30/2024 08:23:47 10/30/19 25 10/30/2024 CBC WITH DIFFE RENTI AL/PL ATELE T monocytes(ab solute) 0.6 x10e3 /uL 0.1-0. 9 normal Not Available [facility] ([facility]) [address] [place], [address], 10/30/2024 08:23:47 10/30/19 25 10/30/2024 CBC WITH DIFFE RENTI AL/PL ATELE T eos (absolute) 0.2 x10e3 /uL 0.0-0. 4 normal Not Available [facility] ([facility]) [address] [place], [address], 10/30/2024 08:23:47 10/30/19 25 10/30/2024 CBC WITH DIFFE RENTI AL/PL ATELE T baso (absolute) 0.0 x10e3 /uL 0.0-0. 2 normal Not Available [facility] ([facility]) [address] [facility], [place], [address], 10/30/2024 08:23:47 10/30/19 25 10/30/2024 CBC WITH DIFFE RENTI AL/PL ATELE T immature granulocytes 0 % not estab. Not Available [facility] ([facility]) [address] [facility] [place], [address], 10/30/2024 08:23:47 10/30/19 25 10/30/2024 CBC WITH DIFFE RENTI AL/PL ATELE T immature grans (abs) 0.0 x10e3 /uL 0.0-0. 1 Not Available [facility] ([facility]) [address] [facility], [place], [address], 10/30/2024 08:23:47 10/30/19 25 10/30/2024 CBC WITH DIFFE RENTI AL/PL ATELE T NRBC DRAFTING ENGINEER Not Available [facility] ([facility]) [address] [facility], [place], [address], 10/30/2024 08:23:47 10/30/19 25 10/30/2024 CBC WITH DIFFE RENTI AL/PL ATELE T hematology comments: DRAFTING ENGINEER Not Available [facility] ([facility]) [address] [facility], [place], [address], 10/30/2024 08:23:47 10/30/19 25 10/30/2024 COMP. METAB OLIC PANEL (14) glucose 89 mg/dL 70-99 normal Not Available [facility] ([facility]) [address] [facility] [place], [address], 10/30/2024 08:23:48 10/30/19 25 10/30/2024 COMP. METAB OLIC PANEL (14) BUN 18 mg/dL 8-27 normal Not Available [facility] ([facility]) [address] [facility] [place], [address], 10/30/2024 08:23:48 10/30/19 25 10/30/2024 COMP. METAB OLIC PANEL (14) creatinine 1.29 mg/dL 0.76-1 .27 above high normal Not Available [facility] ([facility]) [address] [facility] [place], [address], 10/30/2024 08:23:48 10/30/19 25 10/30/2024 COMP. METAB OLIC PANEL (14) eGFR 61 mL/mi n/1.7 3 >59 normal Not Available [facility] ([facility]) [address] [facility] [place], [address], 10/30/2024 08:23:48 10/30/19 25 10/30/2024 COMP. METAB OLIC PANEL (14) BUN/creatini ne ratio 14 10-24 normal Not Available [facility] ([facility]) [address] [facility] [place], [address], 10/30/2024 08:23:48 10/30/19 25 10/30/2024 COMP. METAB OLIC PANEL (14) sodium 136 mmol/ L 134-14 4 normal Not Available [facility] ([facility]) [address] [facility] [place], [address], 10/30/2024 08:23:48 10/30/19 25 10/30/2024 COMP. METAB OLIC PANEL (14) potassium 4.7 mmol/ L 3.5-5. 2 normal Not Available [facility] ([facility]) [address] [facility] [place], [address], 10/30/2024 08:23:48 10/30/19 25 10/30/2024 COMP. METAB OLIC PANEL (14) chloride 100 mmol/ L 96-106 normal Not Available [facility] ([facility]) [address] [facility] [place], [address], 10/30/2024 08:23:48 10/30/19 25 10/30/2024 COMP. METAB OLIC PANEL (14) carbon dioxide, total 21 mmol/ L 20-29 normal Not Available [facility] ([facility]) [address] [facility] [place], [address], 10/30/2024 08:23:48 10/30/19 25 10/30/2024 COMP. METAB OLIC PANEL (14) calcium 9.7 mg/dL 8.6-10 .2 normal Not Available [facility] ([facility]) [address] [facility] [place], [address], 10/30/2024 08:23:48 10/30/19 25 10/30/2024 COMP. METAB OLIC PANEL (14) protein, total 7.1 g/dL 6.0-8. 5 normal Not Available [facility] ([facility]) [address] [place], [address], 10/30/2024 08:23:48 10/30/19 25 10/30/2024 COMP. METAB OLIC PANEL (14) albumin 4.4 g/dL 3.9-4. 9 normal Not Available [facility] ([facility]) [address] [place], [address], 10/30/2024 08:23:48 10/30/19 25 10/30/2024 COMP. METAB OLIC PANEL (14) globulin, total 2.7 g/dL 1.5-4. 5 Not Available [facility] ([facility]) [address] [place], [address], 10/30/2024 08:23:48 10/30/19 25 10/30/2024 COMP. METAB OLIC PANEL (14) bilirubin, total 0.4 mg/dL 0.0-1. 2 normal Not Available [facility] ([facility]) [address] [place], [address], 10/30/2024 08:23:48 10/30/19 25 10/30/2024 COMP. METAB OLIC PANEL (14) alkaline phosphatase 63 IU/L 44-121 normal Not Available [facility] ([facility]) [address] [facility] [place], [address], 10/30/2024 08:23:48 10/30/19 25 10/30/2024 COMP. METAB OLIC PANEL (14) AST (SGOT) 16 IU/L 0-40 normal Not Available [facility] ([facility]) [address] [facility] [place], [address], 10/30/2024 08:23:48 10/30/19 25 10/30/2024 COMP. METAB OLIC PANEL (14) ALT (SGPT) 14 IU/L 0-44 normal Not Available [facility] ([facility]) [address] [place], [address], 10/30/2024 08:23:48 10/30/19 25 10/30/2024 LIPID PANEL cholesterol, total 244 mg/dL 100-19 9 above high normal Not Available [facility] ([facility]) [address] [place], [address], 10/30/2024 08:23:48 10/30/19 25 10/30/2024 LIPID PANEL triglyceride s 193 mg/dL 0-149 above high normal Not Available [facility] ([facility]) [address] [place], [address], 10/30/2024 08:23:48 10/30/19 25 10/30/2024 LIPID PANEL HDL cholesterol 34 mg/dL >39 below low normal Not Available [facility] ([facility]) [address] [place], [address], 10/30/2024 08:23:48 10/30/19 25 10/30/2024 LIPID PANEL VLDL cholesterol wen 36 mg/dL 5-40 Not Available [facility] ([facility]) [address] [place], [address], 10/30/2024 08:23:48 10/30/19 25 10/30/2024 LIPID PANEL LDL chol calc ([facility]) 174 mg/dL 0-99 above high normal Not Available [facility] [facility]) [address] [facility], [place], [address], 10/30/2024 08:23:48 10/30/19 25 10/30/2024 LIPID PANEL LDL calc comment: DRAFTING ENGINEER Not Available [facility] ([facility]) [address] [facility], [place], [address], 10/30/2024 08:23:48 10/30/1910/29/2024 PSA TOTAL (REFL EX TO FREE) reflex criteria Commen t The perce nt free PSA is perfo rmed on a refle x basis only when the total PSA is betwe en 4.0 and 10.0 ng/mL . Not Available [facility] ([facility]) [address] [facility], [place], [address], 10/30/2024 08:23:49 10/30/19 25 10/30/2024 PSA TOTAL (REFL EX TO FREE) prostate [...] kits canno t be used inter goyal junoy . Resul ts canno t be inter prete d as absol [place]ree evide nce of the prese nce or absen ce of bandar pollack disea se. Not Available [facility] ([facility]) [address] [facility], [place], [address], 10/30/2024 08:23:49 10/30/19 25 10/30/2024 HEMOG LOBIN A1C hemoglobin A1C 5.8 % 4.8-5. 6 above high normal Predi abete s: 5.7 - 6.4 Diabe suly: >6.4 Glyce vivi contr ol for adult s with diabe suly: <7.0 Not Available [facility] ([facility]) [address] [facility], [place], [address], 10/30/2024 08:23:49 10/30/19 25 10/29/2024 micro album in/cr eatin ine, mass ratio , urine Microalbumin 10 Not Available [place]io constantino [address], [address], 10/29/2024 08:33:05 10/30/19 25 10/29/2024 micro album in/cr eatin ine, mass ratio , urine Creatinine 100 Not Available Sopertonshaheed cosme [address], [place], [address], 10/29/2024 08:33:05 10/30/19 25 10/29/2024 micro album in/cr eatin ine, mass ratio , urine Ratio <30 Not Available [address], [address], 10/29/2024 08:33:05 05/05/19 25 XR, chest , 2 view No observ ation record ed. [facility] [address] [place] [address] , [place], [address], 05/06/2024 08:55:00 12/30/19 25 12/29/2024 CT, angio gram, chest , w/wo contr ast No observ ation record ed. [email or web address] [facility] [address], [place], [address], 12/30/2024 12:39:22 12/30/19 25 12/29/2024 US, doppl er echoc ardio gram, w/ color flow No observ ation record ed. [email or web address] [facility] [address], [place], [address], 12/30/2024 12:39:50 12/30/19 25 11/28/2023 LDCT, chest , for lung cance r scree wally No observ ation record ed. [email or web address] Not Available 2024 10:36:36 Result Notes None recorded. Problems Name Problem SNOMED Code Status Onset Date Resolution Date Notes Provider Name and Address Organization Details Recorded Time Hypertensive disorder 72673496 Active 2020 Cecil burton, [place] - [facility] 1 07:46:06 Hyperlipidemi a 51902358 Active 2020 Cecil Garland null, [place] - [facility] 1 07:46:17 Chronic obstructive pulmonary disease 53926514 Active 2020 Marycruz Winkler PA-C [address], [place], [address] , [place] - [facility] 1 09:50:44 Anxiety 14129569 Active 2020 Marycruz Winkler PA-C [address], [place], [address] , [place] - [facility] 1 09:51:00 Irregular heart beat 562765031 Active 2020 Marycruz Winkler PA-C [address], [place], [address] , [place] - [facility] 1 09:55:07 Bradycardia 79433831 Active 2022 Marycruz Winkler PA-C [address], [place], [address] , [place] - [facility] 3 09:07:29 Type 2 diabetes mellitus without complication 438260578 Active 2023 Marycruz Winkler PA-C [address], [place], [address] , [place] - [facility] 4 09:02:02 Left lower quadrant pain 973971521 Active 2024 Marycruz Mcnair PA-C [address], [place], [address] , [place] - [facility] 5 11:12:30 Coronary arteriosclero sis 40497514 Active 2024 Marycruz Mcnair PA-C [address], [place], [address] , [place] - [facility] 5 09:02:04 Atrial fibrillation 75128137 Active 2024 Katieliv bur[place], [place] - [facility] 5 10:00:33 Problem Notes None recorded. Procedures Surgical History Date Name Laterality Status Provider Name and Address Organization Details Recorded Time 01/06/20 25 Medication Reconcilliation completed Cecil Garland [place] - [facility] 01/05/2025 13:49:53 10/30/19 25 Advance Care Planning completed Cecil Garland [place] - [facility] 10/29/2024 07:12:53 10/30/19 25 Functional Status Assessed completed Yonatanrisa Dada [place] - [facility] 10/29/2024 07:12:53 04/28/19 25 Nebulizer tx completed Matt Shaffer PA-C [address], [place], [address], [place] - [facility] 04/28/2024 09:15:51 11/07/19 24 Advance Care Planning completed Cecil Garland [place] - [facility] 11/07/2023 07:24:50 11/07/19 24 Functional Status Assessed completed Cecil Garland [place] - [facility] 11/07/2023 07:24:50 09/24/19 24 Medication Reconcilliation completed Cecil Garland [place] - [facility] 09/24/2023 14:08:03 11/07/19 23 Advance Care Planning completed Cecil Garland [place] - [facility] 11/06/2022 07:36:33 11/07/19 23 Functional Status Assessed completed Cecil Garland [place] - [facility] 11/06/2022 07:36:33 Knee Surgery completed Cecil Garland [place] - [facility] 07/21/2020 09:36:18 Shoulder joint surgery completed Cecil MURRAY - [facility] 07/21/2020 09:36:03 repair of heart completed Cecil MURRAY - [facility] 07/21/2020 09:36:32 Imaging Results None recorded. Procedure Notes None recorded. Medical Equipment None Reported. Allergies Allergen ID Allergen Name Allergen Category Reaction Reaction Severity Criticality Documentation Date Start Date Code Code System Note Provider Name and Address Organization Details Recorded Time 217389 Product containin g 3-hydroxy -3-methyl glutaryl- coenzyme A reductase inhibitor (product) medicatio n muscle cramps moderate high 11/08/2023 64785 009 SNOMED [place] - [facility] 09:30:08 Medications Name Sig Start Date Stop Date Status Note LastModified by Organization Details LastModified Time prednisone 10 mg tablet TAKE ONE TABLET BY MOUTH EVERY DAY FOR 5 DAYS 05/10 completed Not Available Not Available Not Available doxycycline hyclate 100 mg capsule TAKE ONE (1) CAPSULE TWICE A DAY BY ORAL ROUTE DIRECTED FOR 7 DAYS. 01/05 completed Not Available Not Available Not Available ipratropium 0.5 mg-albutero l 3 mg [...] completed Not Available Not Available Not Available clopidogrel 75 mg tablet TAKE ONE TABLET BY MOUTH EVERY DAY active Not Available Not Available No t Available amlodipine 5 mg tablet TAKE 1 TABLET BY MOUTH EVERY DAY 09/23 completed Not Available Not Available Not Available spironolact one 25 mg tablet TAKE ONE TABLET BY MOUTH EVERY DAY active Not Available Not Available No t Available bisoprolol fumarate 10 mg tablet TAKE ONE (1) TABLET EVERY DAY BY ORAL ROUTE. 01/05 completed Not Available Not Available Not Available isosorbide mononitrate ER 120 mg tablet,exte nded release 24 hr TAKE 1 TABLET BY MOUTH DAILY 01/05 completed Not Available Not Available Not Available isosorbide mononitrate ER 60 mg tablet,exte nded release 24 hr TAKE 1 TABLET BY MOUTH EVERY DAY 09/23 completed Not Available Not Available Not Available Vitamin C 1,000 mg tablet Take 1 tablet every day by oral route. 01/05 completed Not Available Not Available Not Available oxycodone-a cetaminophe n 10 mg-325 mg tablet TAKE ONE (1) TABLET ORALLY TWICE A DAY NEEDED FOR PAIN 11/06 completed Not Available Not Available Not Available amlodipine 10 mg tablet TAKE 1 TABLET BY MOUTH EVERY DAY 01/05 completed Not Available Not Available Not Available nitroglycer in 0.4 mg sublingual tablet [...] ONE (1) TABLET BY MOUTH EVERY DAY 01/05 completed Not Available Not Available Not Available furosemide 20 mg tablet Take 1 tablet every day by oral route. 01/05 completed Not Available Not Available Not Available dexamethaso ne sodium phosphate 4 mg/mL [...] DAY BY ORAL ROUTE FOR 30 DAYS. 01/05 completed Not Available Not Available Not Available cyclobenzap rine 5 mg tablet Take 1 tablet 3 times a day by oral route. 07/21 completed Not Available Not Available Not Available rosuvastati n 20 mg tablet 12/31 completed Not Available Not Available Not Available rosuvastati n 40 mg tablet TAKE 1 TABLET BY MOUTH EVERY DAY 01/05 completed Not Available Not Available Not Available Crestor 10 mg tablet Take 1 [...] TAKE 1 TABLET BY MOUTH EVERY DAY 01/05 completed Not Available Not Available Not Available Lactobacill us acidoph-L.b ulgaricus 1 million cell tablet TAKE ONE (1) TABLET EVERY DAY BY ORAL ROUTE DIRECTED FOR 10 DAYS. 10/29 completed Not Available Not Available Not Available Eliquis 5 mg tablet TAKE 1 TABLET BY MOUTH TWICE DAILY active Not Available Not Available No t Available Farxiga 10 mg tablet TAKE ONE (1) TABLET EVERY DAY BY ORAL ROUTE. 05/05 completed Not Available Not Available Not Available Jardiance 10 mg tablet Take 1 tablet every day by oral route for 49 days. 2024 active Not Available Not Available Not Avai lable Trelegy Ellipta 100 mcg-62.5 mcg-25 mcg powder [...] 170.18 cm 14 /min 0 36 kg/m2 466489. 8 g 97.9 [degF] 98 % 98 % 67 /min 140/84 mm[Hg] Cecil MURRAY - [facility] 5 08:25:43 Date Recorded Body height Body temperature Body mass index (BMI) Body weight Heart rate Oxygen saturation Oxygen saturation in Arterial blood by Pulse oximetry Respiratory rate Pain severity - 0-10 verbal numeric rating [Score] - Reported Systolic And Diastolic Provider Name and Address Organization Details Last Updated DateTime 5 170.18 cm 98.4 [degF] 35.7 kg/m2 221464. 06 g 86 /min 98 % 98 % 14 /min 0 138/68 mm[Hg] Evelin Juarez [facility] 5 10:46:42 Date Recorded Body height Respiratory rate Body temperature Heart rate Oxygen saturation Oxygen saturation in Arterial blood by Pulse oximetry Pain severity - 0-10 verbal numeric rating [Score] - Reported Systolic And Diastolic Provider Name and Address Organization Details Last Updated DateTime 5 170.18 cm 14 /min 98.2 [degF] 70 /min 98 % 98 % 0 128/84 mm[Hg] Evelin Juarez [facility] 5 08:54:25 Date Recorded Body height Respiratory rate Pain severity - 0-10 verbal numeric rating [Score] - Reported Body mass index (BMI) Body weight Body temperature Heart rate Oxygen saturation Oxygen saturation in Arterial blood by Pulse oximetry Systolic And Diastolic Provider Name and Address Organization Details Last Updated DateTime 5 170.18 cm 14 /min 0 36.7 kg/m2 473851. 71 g 97.7 [degF] 69 /min 99 % 99 % 130/78 mm[Hg] Cecil Garland [facility] 5 08:20:46 Date Recorded Body height Respiratory rate Pain severity - 0-10 verbal numeric rating [Score] - Reported Body mass index (BMI) Body weight Body temperature Heart rate Oxygen saturation Oxygen saturation in Arterial blood by Pulse oximetry Systolic And Diastolic Provider Name and Address Organization Details Last Updated DateTime 5 170.18 cm 14 /min 0 34.8 kg/m2 856944. 91 g 98.2 [degF] 70 /min 96 % 96 % 160/82 mm[Hg] Cecil Garland [facility] 5 13:54:50 Social History Question Answer Notes LastModified by Organizat ion Details LastModified Time Tobacco Smoking Status Current Every Day Smoker Cecil burton [facility] 07/21/2020 09:35:16 Are You Blind Or Do You Have Difficulty Seeing? No [email or web address] Information n ot available 11/06/2022 In The 14 Days Before Symptom Onset, Have You Had Close Contact With A Laboratory-confirm ed COVID-19 While That Case Was Ill? No Information n ot available 11/06/2022 In The 14 Days Before Symptom Onset, Have You Had Close Contact With A Person Who Is Under Investigation For COVID-19 While That Person Was Ill? No [email or web address] Information not available 11/06/2022 Have You Been To An Area Known To Be High Risk For COVID-19? No [email or web address] Information not available 11/06/2022 Are You Deaf Or Do You Have Serious Difficulty Hearing? No [email or web address] Information not available 11/06/2022 Have You Processed Blood Or Body Fluids From An Ebola Virus Disease Patient Without Appropriate PPE? No [email or web address] Information not available 11/06/2022 Do You Reside In Or Have You Traveled To An Area Where Ebola Virus Transmission Is Active? No Information not available 11/06/2022 Have You Recently Or Are You Planning To Travel To An Area With Zika Virus? No [email or web address] Information not available 11/06/2022 What Was The Date Of Your Most Recent Tobacco Screening? 01/05/2025 [email or web address] Information not available 01/05/2025 What Is Your Current Pack Years? 30ormorepack years [email or web address] Information not available 05/10/2022 At What Age Did You Start Smoking Tobacco? 16 [email or web address] Information not available 05/10/2022 How Much Tobacco Do You Smoke? 0.5 PPD [email or web address] Information not available 05/10/2022 Has Tobacco Cessation Counseling Been Provided? Yes [email or web address] Information not available 05/10/2022 On What Date Was Tobacco Cessation Counseling Provided? 01/05/2025 Information not available 01/05/2025 How Many Years Have You Smoked Tobacco? 50 [email or web address] Information not available 07/21/2020 Do You Have Difficulty Walking Or Climbing Stairs? No [email or web address] Information not available 11/06/2022 Sex: Male Functional Status Question Answer Note LastModified by Organizat ion Details LastModified Time Do you or have you ever used any other forms of tobacco or nicotine? No [email or web address] Information not available 05/10/2022 Do you or have you ever used smokeless tobacco? Never used smokeless tobacco [email or web address] Information not available 09/06/2020 Do you have transportation difficulties? No [email or web address] Information not available 11/06/2022 Are you able to walk independently without assistance or assistive devices? YESWOREST [email or web address] Information not available 11/06/2022 Do you have difficulty doing errands alone? No [email or web address] Information not available 11/06/2022 Are you able to care for yourself independently? Yes [email or web address] Information not available 11/06/2022 Do you have difficulty dressing, bathing, grooming, or toileting? No [email or web address] Information not available 11/06/2022 Do you or have you ever used e-cigarettes or vape? Never used electronic cigarettes [email or web address] Information not available 09/06/2020 Mental Status Question Answer Note LastModified by Organization D etails LastModified Time Do you have difficulty concentrating, remembering or making decisions? No [email or web address] Information no t available 11/06/2022 Family History Relationship Description Onset Age of this Age Resolved Age Notes LastModified by Organization Details LastModified Time Mother Heart disease [email or web address] Not available 06/24 09:34:57 Father Carcinoma of prostate [email or web address] Not available 2020 10:54:14 Medical History Condition Response Allergies/Hayfever N ADD/ADHD N Bedwetting N Alzheimer's Disease N AIDS/HIV N Abnormal PAP N Acid Reflux (GERD) N Hyperlipidemia Y Abuse/Domestic Violence N Hypertension Y Acne N Past Encounters Encounter ID Performer Location Encounter Start Date Encounter Closed Date Diagnosis/Indication Diagnosis SNOMED-CT Code Diagnosis ICD10 Code Diagnosis IMO Codes Diagnosis Note [id number] Marycruz Winkler PA-C [facility] [address] [address] 07/21/2020 09:20:19 07/21/2020 09:59:07 Hyperlipidemia 78312449 E78.5 Hypertensive disorder 38 835586 I10 stable Chest pain 16662892 R07. 9 none today, pt has cath tomorrow with Dr Gómez. Pt will get copy of for us. Long-term drug therapy 341461247 Z79.899 chronic conditions stable. Anxiety 95240083 F41.9 Chronic ob structive pulmonary disease 06779645 J44.[address] Hendricks. Irregular heart beat 361 898565 R00.8 [id number] Marycruz Winkler PA-C [facility] [address] [address] 09/06/2020 10:53:57 09/06/2020 11:19:41 Anxiety 58837571 F41.9 stable Chronic ob structive pulmonary disease 57773961 J44.[address] Hendricks. pt was to go this week and had to miss. Hyperlipidemia 03004481 E78.5 Hypertensive disorder 38 717377 I10 stable Irregular heart beat 361 681244 R00.8 pt saw cards last with in the year-pt had heart cath. No stent. Dr Gómez. Taking med ication for chronic disease 4058270852 12118 Z79.899 chronic conditions are stable. pt did not need refills. Screening for malignant neoplasm of prostate 022134309 Z12.5 Screening for malignant neoplasm of colon 083024663 Z12.11 pt did 4-[address] limon. [id number] Marycruz Winkler PA-C [facility] [address] [address] 05/12/2021 09:53:40 05/12/2021 10:24:24 Chronic obstructive pulmonary disease 94768827 J44.[address] Hendricks. He has not f/u lately he needs to f/u. Anxiety 30700632 F41.9 stable Hyperlipidemia 08630256 E78.5 we will get lipid in office. Hypertensive disorder 38 375796 I10 stable Irregular heart beat 361 165890 R00.8 pt saw cards last with in the year-pt had heart cath. No stent. Dr Gómez. Screening for malignant neoplasm of colon 863476086 Z12.11 pt did [address] limon per pt General ex amination of patient 590178936 Z00.00 Hyperlipid emia screening 845442874 Z13.220 Screening for malignant neoplasm of prostate 324399591 Z12.5 Endocrine/ metabolic screening 733346747 Z13.228 we will get bmp in office. Exercises education, guidance, and counseling 932384067 Z71.82 went over to exercise 5 days a week for 30 mins a day. Dietary ma nagement surveillance 814411973 Z71.3 Body mass index 30+ - obesity 111486186 Z68.34 34.8 Viral screening 05551907 4 Z11.59 Smoker 92927877 F17.200 went over to stop smoking. gave education about quitting. pt is on wellbutrin . pt has had ct lungs through Dr hendricks. Taking med ication for chronic disease 8268152191 36023 Z79.899 chronic conditions are stable. pt did not need refills. [id number] RUDY Mcdowell [address] [address] 05/17/2021 11:21:04 05/17/2021 11:53:25 Serum creatinine above reference range 932951744 R79.89 Pruritic rash 65957548 L 28.2 Long-term drug therapy 601396007 Z79.899 chronic conditions stable. pt did not need refills today. [id number] Marycruz Winkler PA-C [facility] [address] [address] 11/08/2021 08:36:38 11/08/2021 09:18:49 Anxiety 55815758 F41.9 stable Chronic ob structive pulmonary disease 69680535 J44.[address] Hendricks. saw 3 weeks ago. He has Ct scan. Hyperlipidemia 52450947 E78.5 we will get lipid in office. Hypertensive disorder 38 882161 I10 stable, went over to monitor BP. IF stays elevated let our office know. Irregular heart beat 361 381577 R00.8 pt saw cards last with in the year-pt had heart cath. No stent. Dr Gómez. Screening for malignant neoplasm of colon 600420578 Z12.11 pt did [address] limon per pt Body mass index 30+ - obesity 561267112 Z68.34 35.2 Taking med ication for chronic disease 4450793073 95526 Z79.899 chronic conditions are stable. pt did not need refills. Difficulty passing urine 181489737 R39.424 [id number] RUDY Mcdowell [address] [address] 12/05/2021 13:32:02 12/05/2021 14:22:53 COVID-19 707627033 U07.1 pt has had symptoms for over 10 days. He is out of quarantine . test neg in office. Acute sinusitis 53677787 J01.90 push fluids and steam. Long-term drug therapy 612611798 Z79.899 chronic conditions stable. pt did not need refills today. [id number] Rachel Layton APRN [facility] [address] [place] [address] 01/19/2022 09:18:28 01/19/2022 10:05:51 Secondary erectile dysfunction 384022473 N52.1 -discussed daily with additional on demand dose of cialis. advised he can call if he wants to try that and i can send an rx. Benign pro static hyperplasia with outflow obstruction 313547572 N40.1 -would rather do OTC.-encou raged super beta prostate BID x 3-4 months trial. Family his tory of malignant neoplasm of prostate 317909741 Z80.42 -discussed annual screening Hyperlipidemia 64532872 E78.5 -likely contribute s to ED Hypertensive disorder 38 495597 I10 -likely contribute s to ED [id number] RUDY Mcdowell [address] [address] 05/10/2022 08:15:04 05/10/2022 08:40:54 Chronic obstructive pulmonary disease 18583611 J44.[address] Hendricks. He has Ct scan. Pt has seen him with in the last month. Hypertensive disorder 38 416047 I10 stable, went over to monitor BP. IF stays elevated let our office know. Pt saw Dr Gómez. Had test ran. Anxiety 00938434 F41.9 stable Hyperlipidemia 33898927 E78.5 we will get lipid in office. Irregular heart beat 361 522352 R00.8 pt saw cards last with in the year-pt had heart cath. No stent. Dr Gómez. Screening for malignant neoplasm of colon 778566231 Z12.11 pt did cologuard 06/13 in chart. Screening for malignant neoplasm of prostate 990494419 Z12.5 Pt had psa in oct 2021. Body mass index 30+ - obesity 994003749 Z68.35 35.3 Obesity 985445482 E66.9 Echocardio gram abnormal 614774793 R93.1 pt had abn stress test. Pt f/u with cards in 2 weeks. They started new med. they are talking about doing cath. Pt sees Dr Gómez. Pt was there last . Taking med ication for chronic disease 2937426197 56754 Z79.899 chronic conditions are stable. pt did not need refills. [id number] Marycruz Winkler PA-C [address] [address] 10/22/2022 14:53:26 10/22/2022 15:23:19 Pain of right elbow joint 5755326861 9287885 M25.521 Elbow joint swelling 298 821956 M25.429 rice therapy. Long-term drug therapy 771486025 Z79.899 chronic conditions stable. Pain of right wrist 3169 326487 35406 M25.153 [id number] Marycruz Winkler PA-C [address] [address] 11/06/2022 08:33:30 11/06/2022 09:31:38 Adult health examination 309024672 Z00.00 Depression screening 171 262374 Z13.31 score 5. Pt states he is ok with wellbutrin . Examinatio n of blood pressure 917967067 Z01.30 stable. Diet education 52722661 Z71.3 went over to eat healthy. Counseling 084978107 Z71 .82 Exercise counseling . Patient encouraged to exercise 30 minutes 5 days a week. At [facility] risk for falls 022951151 Z91.81 STEADI FAST screening score of __6___. went over fall risks with patient. Advance care planning 71 6792569 Z71.89 Finding of body mass index 499226926 E66.9 35.7. Anxiety 44246037 F41.9 stable. Chronic ob structive pulmonary disease 70828101 J44.9 stable per pt. pt has inhaler. Hyperlipidemia 44382336 E78.5 we will get lipid in office. Hypertensive disorder 38 087998 I10 stable, went over to monitor BP. IF stays elevated let our office know. Pt saw Dr Gómez. Had test ran. Irregular heart beat 361 922876 R00.8 pt saw cards last with in the year-pt had heart cath. No stent. Dr Gómez. Screening for malignant neoplasm of colon 396999473 Z12.11 pt did cologuard 06/13 in chart. Screening for malignant neoplasm of prostate 538755628 Z12.5 Pt had psa in oct 2021. Pain of ri ght elbow joint 8338984023 4219781 M25.[address] Rowland he wanted to do surgery and goes back tomorrow. Bradycardia 52149302 R00 .1 pt has pacemaker and fib. Taking med ication for chronic disease 2421412964 30317 Z79.899 chronic conditions are stable. pt did not need refills. [id number] RUDY Mcdowell [address] [address] 12/31/2022 10:14:36 12/31/2022 11:52:41 Headache 61798747 R51.9 psuh fluids. Insect bite - wound 2764 44222 T14.8XXA went over to take probitoics . Long-term drug therapy 310283193 Z79.899 chronic conditions stable. [id number] RUDY Mcdowell [address] [address] 01/07/2023 08:17:51 01/07/2023 08:54:36 Headache 27465432 R51.9 [address] fluids[address] pt had Ct today in office. Insect bite - wound 2764 96106 T14.8XXA improved finish clinda. Long-term drug therapy 980664692 Z79.899 chronic conditions stable. [id number] RUDY Mcdowell [address] [address] 05/09/2023 08:52:20 05/09/2023 09:42:35 Hypertensive disorder 32316273 I10 stable, went over to monitor BP. IF stays elevated let our office know. Pt saw Dr Gómez. Had test ran. Anxiety 53234710 F41.9 stable. Chronic ob structive pulmonary disease 28048642 J44.9 stable per pt. pt has inhaler. pt sees Dr hendricks. Hyperlipidemia 90649297 E78.5 we will get lipid in office. Smoker 78236382 F17.200 went over to stop smoking. gave education about quitting. pt is on wellbutrin . pt has had ct lungs through Dr hendricks. last Ct was with in the year. Bradycardia 14430909 R00 .1 pt has pacemaker and fib. Irregular heart beat 361 850888 R00.8 pt saw cards last with in the year-pt had heart cath. No stent. Dr Gómez. Screening for malignant neoplasm of colon 202527702 Z12.11 pt did cologuard 06/13 in chart. Taking med ication for chronic disease 5984947773 45013 Z79.899 chronic conditions are stable. pt did not need refills. Pruritic rash 30841751 L 28.2 creamed helped gave refill. [id number] Marycruz Winkler PA-C [place] [address] [address] 09/24/2023 14:07:17 09/24/2023 14:28:17 Smoker 88423301 F17.200 went over to stop smoking. gave education about quitting. pt is on wellbutrin . pt has had ct lungs through Dr Hendricks. last Ct was with in the year. He is not using patches that hospital sent home. History of placement of stent for coronary artery disease 678680121 Z95.5 he had two new stents placed. He has total of 18 stents per pt. labs were ok in ann-marie blacks note. Pt f/u tomorrow. He is on HCTZ now at 12.5 mg. He takes half a 25 mg. Essential hypertension 19266054 I10 pt is now on hctz half a t 25 mg. he is on amlodipine , isosorbide , Metoprolol , olmesartan . went over to push water. Chest pain 18820749 R07. 9 none today, improving. Pt had two new stents placed. Long-term drug therapy 674930804 Z79.899 chronic conditions are stable, pt does not need refills today. [id number] Marycruz Winkler PA-C [address] [address] 11/07/2023 08:32:42 11/07/2023 09:09:42 Adult health examination 591473807 Z00.00 Depression screening 171 426253 Z13.31 A depression screening was completed via a standardiz ed screening tool. 5 minutes were spent discussing depression screening results and risk factors. Scored 0. Examinatio n of blood pressure 215115384 Z01.30 stable. Diet education 42638871 Z71.3 went over to eat healthy. Counseling 687791216 Z71 .82 Exercise counseling . Patient encouraged to exercise 30 minutes 5 days a week. At [facility] ed risk for falls 774860766 Z91.81 [facility] screening score of ___2__. went over fall risks with patient. Advance care planning 71 9409954 Z71.89 Finding of body mass index 359724696 Z68.36 36.6 Smoker 46181228 F17.200 went over to stop smoking. gave education about quitting. pt is on wellbutrin . pt has had ct lungs through Dr Hendricks. last Ct was with in the year. He is not using patches that hospital sent home. Pt sees Dr Hendricks and he will place order for pt to get this. Anxiety 69014421 F41.9 stable. Chronic ob structive pulmonary disease 45131706 J44.9 stable per pt. pt has inhaler. pt sees Dr hendricks. Hyperlipidemia 81102701 E78.5 we will get lipid in office. Hypertensive disorder 38 171589 I10 stable, went over to monitor BP. IF stays elevated let our office know. Pt saw Dr Gómez. Had test ran. Irregular heart beat 361 590163 R00.8 pt saw cards last with in the year-pt had heart cath. No stent. Dr Gómez. Screening for malignant neoplasm of colon 806418137 Z12.11 pt did cologuard 06/13 in chart. Screening for malignant neoplasm of prostate 433043101 Z12.5 Taking med ication for chronic disease 4555497400 92061 Z79.899 chronic conditions are stable. pt did not need refills. Type 2 winston betes mellitus without complication 030606803 E11.9 pt is on Farxiga. [id number] Marycruz Winkler PA-C [place] [address] [address] 12/11/2023 14:30:34 12/11/2023 15:12:41 Smoker 60507860 F17.200 went over to stop smoking. gave education about quitting. pt is on wellbutrin . pt has had ct lungs through Dr Hendricks. last Ct was with in the year. He is not using patches that hospital sent home. Pt sees Dr Hendricks and he will place order for pt to get this. Left lower quadrant pain 709371071 R10.32 went over moist heat, mild diet. we will treat for diverticul itis just encase. labs last month were ok. [id number] Matt Shaffer PA-C [address] [address] 04/28/2024 08:49:43 04/28/2024 09:40:11 Expiratory wheezing 4368364 R06.2 Acute bact erial bronchitis 584327109 J20.9 Dyspnea 828927607 R06.00 Cough 15105585 R05.9 [id number] Matt Shaffer PA-C [address] [address] 04/30/2024 11:33:47 04/30/2024 11:48:46 Acute bacterial bronchitis 337523881 J20.9 -IMPROVING Cough 74718976 R05.9 -STABLE Dyspnea 442079210 R06.00 -IMPROVING Expiratory wheezing 9763 007 R06.2 -IMPROVING [id number] Marycruz Winkler PA-C [address] [address] 05/05/2024 08:15:11 05/05/2024 08:42:54 Chronic obstructive pulmonary disease 19295348 J44.9 stable per pt. pt has inhaler. pt sees Dr Hendricks. Type 2 winston betes mellitus without complication 769497696 E11.9 pt is on Farxiga. Pt stop taking the farxiga and we will get a1c today. Hypertensive disorder 38 445802 I10 stable, went over to monitor BP. IF stays elevated let our office know. Pt saw Dr Gómez. Had test ran. He has had 5 stents placed. Anxiety 36730259 F41.9 stable per pt. Hyperlipidemia 27013330 E78.5 we will get lipids in office. Smoker 67871054 F17.200 went over to stop smoking. gave education about quitting. pt is on wellbutrin . pt has had ct lungs through Dr Hendricks. last Ct was with in the year. He is not using patches that hospital sent home. Pt sees Dr Hendricks. Bradycardia 23924817 R00 .1 pt has pacemaker and fib. Irregular heart beat 361 872302 R00.8 pt saw cards last with in the year-pt had heart cath. Dr Gómez. Screening for malignant neoplasm of colon 802631937 Z12.11 pt did cologuard 06/13 in chart. Pt will repeat this year. Body mass index 30+ - obesity 436944615 Z68.36 36 Obesity 250662192 E66.9 Taking med ication for chronic disease 9158227983 06822 Z79.899 chronic conditions are stable. pt did not need refills. Cough 29823610 R05.9 improving on doxy [id number] RUDY Figueroa [address] [address] 06/29/2024 10:36:22 06/29/2024 11:40:14 Left lower quadrant pain 427579254 R10.32 862561 -NewHx of diverticul itis, pt does not want to do ct yet due to cost [id number] RUDY Figueroa [address] [address] 07/06/2024 08:49:34 07/06/2024 09:19:15 Left lower quadrant pain 340861035 R10.32 415469 -NewHx of diverticul itis, pt does not want to do ct yet due to cost Coronary arteriosclerosis 58438413 I25.10 66216 Pt needs refillPt would like to see another cardiologi st to discuss his meds [id number] RUDY Mcdowell [address] [address] 10/29/2024 08:09:40 10/29/2024 08:42:43 Adult health examination 702586075 Z00.00 Depression screening 171 932676 Z13.31 A depression screening was completed via a standardiz ed screening tool. 5 minutes were spent discussing depression screening results and risk factors. scored 0. Examinatio n of blood pressure 475553667 Z01.30 stable. Diet education 51239057 Z71.3 went over to eat healthy. Counseling 722515039 Z71 .82 Exercise counseling . Patient encouraged to exercise 30 minutes 5 days a week. At [facility] ed risk for falls 132195313 Z91.81 [facility] screening score of ___3__. went over fall risks with patient. Advance care planning 71 6468926 Z71.89 Cigarette smoker 5121585 7 F17.210 760791 went over to stop smoking. gave education about quitting. pt is on wellbutrin . pt has had ct lungs through Dr Hendricks. last Ct was with in the year. He is not using patches that hospital sent home. Pt sees Dr Hendricks. Pt has apt with Dr sutton office now. He has ct chest then. Anxiety 02936464 F41.9 stable per pt. Bradycardia 75381941 R00 .1 pt has pacemaker and fib. pt sees Dr gómez. Coronary arteriosclerosis 75409720 I25.10 61978 Chronic ob structive pulmonary disease 67630431 J44.9 stable per pt. pt has inhaler. pt sees Dr Hendricks. Hyperlipidemia 23585718 E78.5 we will get lipids in office. Hypertensive disorder 38 283193 I10 stable, went over to monitor BP. IF stays elevated let our office know. Pt saw Dr Gómez. Had test ran. He has had 18 stents placed all together. He has nitro and sees Dr gómez this month. Irregular heart beat 361 987153 R00.8 pt saw cards last with in the year-pt had heart cath. Dr Gómez. Type 2 winston betes mellitus without complication 680248217 E11.9 pt is on Farxiga. Pt stop taking the farxiga and we will get a1c today. eye exam due 11/16. pt does not check BS at home. Screening for malignant neoplasm of colon 048589124 Z12.11 091871 pt did cologuard 06/16 in chart. Prostate s pecific antigen measurement 62682688 Z12.5 561965 Severe obesity 215878054 1 9104 E66.01 Z68.36 9861387790 Heart disease 35648899 I 51.9 64924 Taking med ication for chronic disease 2122947966 56194 Z79.899 chronic conditions are stable. pt did not need refills. he will call [id number] RUDY Mcdowell [address] [address] 01/05/2025 13:47:39 01/05/2025 14:26:04 Chest discomfort 360626069 R07.89 79765 none today, improving. Pt had three new stents placed. -improved pt has apt with Dr Gómez next week. Atrial fibrillation 4943 6004 I48.91 23659488 he is on eliquis. he is on metoprolol . -stable per pt. Long-term current use of drug therapy 033349829 Z79.521 5958852 chronic conditions are stable. Cigarette smoker 0649426 7 F17.210 837701 went over to stop smoking. gave education about quitting. pt is on wellbutrin . pt has had ct lungs through Dr Hendricks. last Ct was with in the year. He is not using patches that hospital sent home. Pt sees Dr Hendricks. Pt has apt with Dr sutton office now. He has ct chest then. History of myocardial infarction 117441108 I25.[address] gómez started jardiance. pt needs med. Health Concerns Section Related Observation LastModified by Organization Detai ls LastModified Time None Recorded Concern Status LastModified by Organization Details LastModified Time None Recorded Advance Directives Directive None Recorded Payers Insurance Date Sequence Insurance Name Policy Number Policy Castro Covered Member ID Castro Member ID Guarantor Name 11/23/2020 1 UNSPECIFIED REMIT PAYOR Solomon Thurman 01/02/2025 1 [facility] (MEDICARE REPLACEMENT/AD VANTAGE - HMO) [id number] Solomon Thurman [id number] Solomon Thurman 04/28/2024 1 [employer] (MEDICARE REPLACEMENT/AD VANTAGE - PPO) Solomon Thurman [id number] Solomon Thurman 05/31/2021 1 [facility] [place] Estrella Thurman [id number] Solomon Olman Notes Date Note Type Note Provider Name and Address Organization Details Recorded Time 05/05/2024 text/html Patient is here for check up and medication refills.He had bronchitis last week and was no antibiotics and steroids. He has one antibiotic left. He is feeling better. No fever. Cough is much better. No sore throat. No N/V/D. Pt has not used trelegy. Pt sees Dr Hendricks. Marycruz Winkler PA-C [address], [place], [address], [facility] - [facility] 05/05/2024 08:37:11 06/29/2024 text/html ROS [...] swallowing Marycruz Mcnair PA-C [address], [place], [address], [place] - [facility] 06/29/2024 12:05:35 07/06/2024 text/html ROS as noted in the HPI Pt presents today for a follow up on LLQ pain. pt states he is feeling a lot better today.Denies any more pain He does need a refill on his nitro, he denies current chest pain. 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 Marycruz Mcnair PA-C [address], [place], [address], [facility] - [facility] 07/06/2024 09:08:41 10/29/2024 text/html Medicare [...] here for wellness exam. Marycruz Winkler PA-C [address], [place], [address], [employer] - [facility] 10/29/2024 08:37:48 01/05/2025 text/html Emergency Depart ment Follow-Up RecordReported by Patient Patient is here to f/u on hospital visit with [facility] for chest pain. Patient was admitted and saw cards. Pt had new on set of A fib. He went back a second time and got new stents placed. Since being out of hospital SOB is better. Today, chest pain is much better. No SOB. He F/u with Dr Gómez office of this month. He has not had any new flutters either. Marycruz Winkler PA-C [address], [place], [address], [employer] - [facility] 01/05/2025 14:21:58
--- OUTSIDE RECORDS SUMMARY | 2025-01-09 10:26 | XMS_ITS | Continuity of Care Document ---
Author Organization [facility] Sofy krzysztof [facility] [place] Address [address] [place] [address] Assessment Encounter Date Assessment Date Assessment LastModified by Organization Details LastModified Time 01/05/2025 01/05/2025 -Medications were reviewed and any necessary updates and renewals were made, patient instructed to complete as prescribed. -The potential side effects of medications were discussed. -Counseling was done on care goals and ways to prevent future hospitalizatio ns. -Further treatment per orders listed below. [email or web address] Not available 01/05/2025 13:49:53 Plan of Treatment Reminders Order Date Submit Date Provider Last Modified By Organization Details Last Modified Time Details Appointments Establis [facility] Patient 20 2025 08:20A Boone Winkler PA-C Not available Not available Not available Lab None recorded . Referral None recorded . Procedures None recorded . Surgeries None recorded . Imaging None recorded . Medication Orders Jardianc e 10 mg tablet [address]- [facility], [address] [place] [address] , [place], [address], 01/05/2025 14:21:00 Patient TargetsNo targets recorded. Patient Instructions Encounter Date Encounter Id Patient Instructions Last Modified By Organization Details Last Modified Time 01/05/2025 [id number] atrial fibrillation: care instructions [email or web address] Not available 01/05/2025 14:21:00 smoking cessatio n counseling, greater than 3 minutes up to 10 minutes* [email or web address] Not available 01/05/2025 15:00:48 CALL W CHANGES RTC OR ED IF SYMPTOMS CHANGE OR WORSEN KEEP NEXT INTERVAL CHECKUP f/u prn Not available 01/05/2025 14:21:27 Reason for Referral None Reported. Results Created Date Observation Date Name Description Value Unit Range Abnormal Flag Note LastModifiedBy Organization Detail LastModifiedTime 12/30/19 25 12/29/2024 CT, angio gram, chest , w/wo contr ast No observ ation record ed. [email or web address] [facility] [address], [place], [address], 12/30/2024 12:39:22 12/30/1912/29/2024 [place], doppl er echoc ardio gram, w/ color flow No observ ation record ed. [email or web address] [facility] [address], [place], [address], 12/30/2024 12:39:50 12/30/19 25 11/28/2023 LDCT, chest , for lung cance r scree wally No observ ation record ed. [email or web address] Not Available 2024 10:36:36 Result Notes None recorded. Problems Name Problem SNOMED Code Status Onset Date Resolution Date Notes Provider Name and Address Organization Details Recorded Time Hypertensive disorder 03180518 Active 2020 Cceil burton [place] - [facility] 07:46:06 Hyperlipidemi a 27522415 Active 2020 Cecil burton [place] - [facility] 07:46:17 Chronic obstructive pulmonary disease 20464790 Active 2020 Marycruz Winkler PA-C [address], [place], [address] , [place] - [facility] 1 09:50:44 Anxiety 20439566 Active 2020 Marycruz Winkler PA-C [address], [place], [address] , [place] - [facility] 1 09:51:00 Irregular heart beat 686673068 Active 2020 Marycruz Winkler PA-C [address], [place], [address] , [place] - [facility] 1 09:55:07 Bradycardia 22096428 Active 2022 Marycruz Winkler PA-C [address], [place], [address] , [place] - [facility] 3 09:07:29 Type 2 diabetes mellitus without complication 877211416 Active 2023 Marycruz Winkler PA-C [address], [place], [address] , [place] - [facility] 4 09:02:02 Left lower quadrant pain 479264892 Active 2024 Marycruz Mcnair PA-C [address], [place], [address] , [place] - [facility] 5 11:12:30 Coronary arteriosclero sis 59709064 Active 2024 Marycruz Mcnair PA-C [address], [place], [address] , [place] - [facility] 5 09:02:04 Atrial fibrillation 55268275 Active 2024 Katie bur[place], [place] - [facility] 5 10:00:33 Problem Notes None recorded. Procedures Surgical History Date Name Laterality Status Provider Name and Address Organization Details Recorded Time 01/06/20 25 Medication Reconcilliation completed Cecil Garland [place] - [facility] 01/05/2025 13:49:53 10/30/19 25 Advance Care Planning completed Cecil MURRAY - [facility] 10/29/2024 07:12:53 10/30/19 25 Functional Status Assessed completed Cecil Garland [place] - [facility] 10/29/2024 07:12:53 04/28/19 25 Nebulizer tx completed Matt Shaffer PA-C [address], [place], [address], [place] - [facility] 04/28/2024 09:15:51 11/07/19 24 Advance Care Planning completed Cecil MURRAY - [facility] 11/07/2023 07:24:50 08/15/20 24 Functional Status Assessed completed Cecil MURRAY - [facility] 11/07/2023 07:24:50 09/24/19 24 Medication [...] Name and Address Organization Details Recorded Time 339175 Product containin g 3-hydroxy -3-methyl glutaryl- coenzyme A reductase inhibitor (product) medicatio n muscle cramps moderate [place] 11/08/2023 24644 009 SNOMED [place] [facility] 09:30:08 Medications Name Sig Start Date Stop [...] and Address Organization Details Last Updated DateTime 170.18 cm 14 /min 0 34.8 kg/m2 531326. 91 g 98.2 [degF] 70 /min 96 % 96 % 160/82 mm[Hg] Cecil Garland [place] - [facility] 13:54:50 Social History Question Answer Notes LastModified by [facility] Therapy[facility] ion Details LastModified Time Tobacco Smoking Status Current Every Day Smoker Cecil Garland [facility], [place] - [facility] 07/21/2020 09:35:16 Are You Blind Or Do You Have Difficulty Seeing? No [email or web address] Information n ot available 11/06/2022 In The 14 Days Before Symptom Onset, Have You Had Close Contact With A Laboratory-confirm ed COVID-19 While That Case Was Ill? No [email or web address] Information n ot available 11/06/2022 In The 14 Days Before Symptom Onset, Have You Had Close Contact With A Person Who Is Under Investigation For COVID-19 While That Person Was Ill? No [email or web address] Information not available 11/06/2022 Have You Been To An Area Known To Be High Risk For COVID-19? No Information not available 11/06/2022 Are You Deaf Or Do You Have Serious Difficulty Hearing? No [email or web address] Information not available 11/06/2022 Have You Processed Blood Or Body Fluids From An Ebola Virus Disease Patient Without Appropriate PPE? No [email or web address] Information not available 11/06/2022 Do You Reside In Or Have You Traveled To An Area Where Ebola Virus Transmission Is Active? No [email or web address] Information not available 11/06/2022 Have You Recently Or Are You Planning To Travel To An Area With Zika Virus? No [email or web address] Information not available 11/06/2022 What Was The Date Of Your Most Recent Tobacco Screening? 01/05/2025 [email or web address] Information not available 01/05/2025 What Is Your Current Pack Years? 30ormorepack years [email or web address] Information not available 05/10/2022 At What Age Did You Start Smoking Tobacco? 16 [email or web address] Information not available 05/10/2022 How Much Tobacco Do You Smoke? 0.5 PPD [email or web address] Information not available 05/10/2022 Has Tobacco Cessation Counseling Been Provided? Yes [email or web address] Information not available 05/10/2022 On What Date Was Tobacco Cessation Counseling Provided? 01/05/2025 [email or web address] Information not available 01/05/2025 How Many Years Have You Smoked Tobacco? 50 [email or web address] Information not available 07/21/2020 Do You Have Difficulty Walking Or Climbing Stairs? No [email or web address] Information not available 11/06/2022 Sex: Male Functional Status Question Answer Note LastModified by Organizat ion Details LastModified Time Do you or have you ever used any other forms of tobacco or nicotine? No [email or web address] Information not available 05/10/2022 Do you or have you ever used smokeless tobacco? Never used smokeless tobacco Information not available 09/06/2020 Do you have transportation difficulties? No [email or web address] Information not available 11/06/2022 Are you able to walk independently without assistance or assistive devices? YESWOREST [email or web address] Information not available 11/06/2022 Do you have difficulty doing errands alone? No [email or web address] Information not available 11/06/2022 Are you able to care for yourself independently? Yes [email or web address] Information not available 11/06/2022 Do you have difficulty dressing, bathing, grooming, or toileting? No [email or web address] Information not available 11/06/2022 Do you or have you ever used e-cigarettes or vape? Never used electronic cigarettes [email or web address] Information not available 09/06/2020 Mental Status Question Answer Note LastModified by Organization D etails LastModified Time Do you have difficulty concentrating, remembering or making decisions? No [email or web address] Information no t available 11/06/2022 Family History Relationship Description Onset Age of this Age Resolved Age Notes LastModified by Organization Details LastModified Time Mother Heart disease [email or web address] Not available 06/24 09:34:57 Father Carcinoma of [...] ICD10 Code Diagnosis IMO Codes Diagnosis Note [id number] Marycruz Winkler PA-C [address] [address] 01/05/2025 13:47:39 01/05/2025 14:26:04 Chest discomfort 759613439 R07.89 72197 none today, improving. Pt had three new stents placed. -improved pt has apt with Dr Gómez next week. Atrial fibrillation 4943 6004 I48.91 73418243 he is on eliquis. he is on metoprolol . -stable per pt. Long-term current use of drug therapy 788907035 Z79.213 0284069 chronic conditions are stable. Cigarette smoker 2468700 7 F17.210 205340 went over to stop smoking. gave education about quitting. pt is on wellbutrin . pt has had ct lungs through Dr Tolbert. last Ct was with in the year. He is not using patches that hospital sent home. Pt sees Dr Tolbert. Pt has apt with Dr sutton office now. He has ct chest then. History of myocardial infarction 441430445 I25.[address] gómez started jardiance. pt needs med. Health Concerns Section Related Observation LastModified by Organization Detai ls LastModified Time None Recorded Concern Status LastModified by Organization Details LastModified Time None Recorded Payers Encounter Date Sequence Insurance Name Policy Number Policy Castro Covered Member ID Castro Member ID Guarantor Name 01/05/2025 1 [facility] (MEDICARE REPLACEMENT/A DVANTAGE - HMO) [id number] Solomon Thurman [id number] Solomon Thurman Notes Date Note Type Note Provider Name and Address Organization Details Recorded Time 01/05/2025 text/html Emergency Depart ment Follow-Up RecordReported by Patient Patient is here to f/u on hospital visit with [facility] for chest pain. Patient was admitted and [...] either. Marycruz Winkler PA-C [address], [place], [address], [place] - [facility] 01/05/2025 14:21:58
--- OUTSIDE RECORDS SUMMARY | 2025-01-09 10:26 | XMS_ITS | Clinical Summary ---
Author Organization [facility] Address [facility] [place] [address] Care Team Providers Care [employer] Lieutenant Name Role Phone Unavailable Primary Care Provider Unavailabl e Source Comments This information has been disclosed to you from confidential records protectedfrom disclosure by state law. You shall make no further disclosure of thisinformation without the specific, written, and informed release of theindividual to whom it pertains, or as otherwise permitted by law. A generalauthorization for the release of medical or other information is not sufficientfor the purposes of therelease of HIV test results or diagnoses. [id number] Social History Tobacco Use Types Packs/Day Years Used Date Smoking Tobacco: Never Assessed Sex and Gender Information Value Date Recorded Sex Assigned at Not on file Legal Sex Male 8:19 PM EST Gender Identity Not on file Sexual Orientation Not on file Plan of Treatment Not on file
--- OUTSIDE RECORDS SUMMARY | 2025-01-09 10:26 | XMS_ITS | Clinical Summary ---
Author Organization [facility] Address [address] [place] [address] Care Team Providers Care Retreader Name Role Phone Unavailable Primary Care Provider Unavailabl e Social History Tobacco Use Types Packs/Day Years Used Date Smoking Tobacco: Never Assessed Sex and Gender Information Value Date Recorded Sex Assigned at Not on file Legal Sex Male 4:36 PM EDT Gender Identity Not on file Sexual Orientation Not on file Last Filed Vital Signs Vital Sign Reading Time Taken Comments Blood Pressure 150/59 08/08/2022 7:04 PM EDT Pulse - - Temperature - - Respiratory Rate - - Oxygen Saturation - - Inhaled Oxygen Concentration - - Weight 105 kg (231 lb) 08/08/2022 7:04 PM EDT Height 172.7 cm (5' 8 ) 08/08/2022 7:04 PM EDT Body Mass Index 35.12 08/08/2022 7:04 PM EDT Plan of Treatment Health Maintenance Due Date Last Done Comments [facility]-Depression Screening 1957 [facility]-Hepatitis C Screening 1957 [facility]-Medicare Annual Wellness (AWV) 1957 [facility]-Infant/Child/Adol SDOH Screenings 1957 [facility]-Obesity Intervention 1963 [facility]- SDOH Screenings 1975 [facility]-Adult SDOH Screenings 1975 [facility]-DTaP,Tdap,and Td Vaccine s (1 - Tdap) 1976 CT Colonography 2002 Colonoscopy 2002 FIT-DNA 2002 FIT 2002 FOBT 2002 Sigmoidoscopy 2002 [facility]-Colorectal Cancer Screening 2002 [facility]-Pneumococcal Vaccine: 50 + Years (1 of 1 - PCV) 2007 [facility]-Zoster Vaccines (1 of 2) 2007 [id number] Vaccine (1 - 20 24-25 season) 2024 [facility]-Influenza Vaccine (#1) 2024 [facility]-RSV Vaccine: 60+ Years o r (1 - 1-dose 75+ series) 2032 HPV Vaccines Aged Out No longer eligi ble based on patient's age to complete this topic [facility]-HIB Vaccines Aged Out No longer e ligible based on patient's age to complete this topic [facility]-Hepatitis A Vaccines Aged Out No longer eligible based on patient's age to complete this topic [facility]-IPV Vaccines Aged Out No longer e ligible based on patient's age to complete this topic [facility]-Rotavirus Vaccines Aged Out No lo nger eligible based on patient's age to complete this topic Insurance [employer] MEDICARE
--- OUTSIDE RECORDS SUMMARY | 2025-01-09 10:27 | XMS_ITS | Clinical Summary ---
Author Organization [facility] Address [address] [facility] [address] [place] [address] Care Team Providers Care Office Mover Name Role Phone Russell Morrison MD Primary Care Provider + Social History Tobacco Use Types Packs/Day Years Used Date Smoking Tobacco: Never Assessed Sex and Gender Information Value Date Recorded Sex Assigned at Not on file Legal Sex Male 10:50 AM EDT Gender Identity Not on file Sexual Orientation Not on file Plan of Treatment Health Maintenance Due Date Last Done Comments CT Colonography 1957 Colonoscopy 1957 Colorectal Cancer Screening 1957 FIT-DNA (Cologuard) 1957 FIT 1957 FOBT 1957 Hepatitis C Screening 1957 Lipid Panel 1957 Medicare Annual Wellness (AWV) 1957 Sigmoidoscopy 1957 Hepatitis B Screening 1975 DTaP/Tdap/Td Vaccines (1 - Tdap) 1976 Pneumococcal Vaccine: 50+ Ye ars (1 of 1 - PCV) 2007 Zoster Vaccines (1 of 2) 2007 Depression Risk Screening 03/25/2024 Fall Risk Screening 03/25/2024 SDOH Screening 03/25/2024 COVID-19 Vaccine ( - 2023-2 5 season) 2024 Influenza Vaccine (#1) 2024 HIB Vaccines Aged Out No longer eligi ble based on patient's age to complete this topic HPV Vaccines Aged Out No longer eligi ble based on patient's age to complete this topic Hepatitis A Vaccines Aged Out No long er eligible based on patient's age to complete this topic Hepatitis B Vaccines Aged Out No long er eligible based on patient's age to complete this topic IPV Vaccines Aged Out No longer eligi ble based on patient's age to complete this topic Meningococcal B Vaccine Aged Out No l onger eligible based on patient's age to complete this topic Meningococcal Vaccine Aged Out No [place] eligible based on patient's age to complete this topic Rotavirus Vaccines Aged Out No longer eligible based on patient's age to complete this topic Insurance [facility] MEDICARE ADVANTAGE Care Teams Office Mover Relationship Specialty Start Date End Date Russell Morrison MD [address] [place] [address] PCP - General Family Medicine 05/26/20
--- OUTSIDE RECORDS SUMMARY | 2025-01-09 10:27 | XMS_ITS | Clinical Summary ---
Author Organization [facility] Address [address] [place] [address] Phone Care Team Providers Care Message Clerk Name Role Phone Unavailable Primary Care Provider Unavailabl e Allergies No known active allergies Medications eplerenone (INSPRA) 25 mg Oral Tablet Take 25 mg by mouth daily. Active buPROPion (WELLBUTRIN XL) 150 mg Oral Tablet Sustained Release 24 hrIndications:an xiety with depression Take 150 mg by mouth every morning. Active carvedilol (COREG) 12.5 mg Oral TabletIndication s:left ventricular dysfunction following ID Take 12.5 mg by mouth 2 times daily. Takes 12.5mg in am and 25mg in evening Active aspirin 81 mg Oral Tablet, Delayed Release (E.C.)Indication s:myocardial infarction prevention Take 81 mg by mouth daily. Active rosuvastatin (CRESTOR) 10 mg Oral TabletIndication s:hyperlipidemia Take 10 mg by mouth daily. Active olmesartan (BENICAR) 40 mg Oral TabletIndication s:hypertension Take 40 mg by mouth daily. Active ranitidine (ZANTAC) 150 mg Oral Tablet Take 150 mg by mouth 2 times daily. Active prasugrel (EFFIENT) 10 mg Oral TabletIndication s:thrombosis prevention after PCI Take 10 mg by mouth daily. Active nitroGLYCERIN (NITROSTAT) 0.4 mg SL Tablet, Sublingual Place under the tongue every 5 minutes as needed for Chest pain. Active albuterol (PROVENTIL HFA;VENTOLIN HFA) 90 mcg/actuation Inhl HFA Aerosol Inhaler Inhale 1 Puff into the lungs every 6 hours as needed for Wheezing. Active oxyCODONE-acetam inophen (PERCOCET) 5-325 mg Oral Tablet Take 1 Tab by mouth every 6 hours as needed for Acute Pain > 3 Days Medically Necessary (R52). 15 Tab 8 Active Additional Information Patient not taking.Reason: Other, Reported on 02/20/2018 Active Problems Problem Noted Date Diagnosed Date Tobacco abuse 02/20/2018 Cigarette nicotine dependenc e with nicotine-induced disorder 02/20/2018 Ischemia of right lower extremity Surgical History Surgery Date Site/Laterality Comments SHOULDER SURGERY bilat rotator cuff surgeries KNEE SURGERY bilateral knee replacements ANGIOPLASTY 01/20/2018 Right EXTENSIVE RIGHT ILIO-FEMORAL ENDARTERECTOMY WITH BOVINE PATCH, THROMBECTOMY OF THE SUPERIOR FEMORAL ARTERY AND PROFUNDA WITH SHAGGY CATHETER, SELECTIVE RIGHT LOWER EXTREMITY ARTERIOGRAMS WITH TIP OF CATHETER IN THE PROXIMAL CENTRAL FEMORAL ARTERY FROM LEFT FEMORAL SHEATH CATHETER, LEFT FEMORAL ARTERIOGRAM, MYNX CLOSURE; Surgeon: Delio Lopez DO; Location: [facility]; Service: Vascular Medical devices from this surgery are in the Medical Devices section. Medical History Medical History Date Comments COPD (chronic obstructive pulmonary disease) (HC C) Hypertension Hyperlipidemia ID (myocardial infarction) (HCC) x2 Peripheral vascular disease sanjay pheral stents CAD (coronary artery disease) mu ltiple stents in heart Arthritis Family History Medical History Relation Name Comments Heart Disease Brother Cancer Father Asthma Mother Heart Disease Mother Relation Name Status Comments Brother Father Mother Social History Tobacco Use Types Packs/Day Years Used Date Smoking Tobacco: Every Day Cigarettes 1 55 Started: 01/21/1970 Smokeless Tobacco: Never Tobacco Cessation:Ready to Q uit: Yes; Counseling Given: No Alcohol Use Standard Drinks/Week Comments No 0 (1 standard drink = 0.6 oz pur e alcohol) Sex and Gender Information Value Date Recorded Sex Assigned at Not on file Legal Sex Male 4:48 PM EDT Gender Identity Not on file Sexual Orientation Not on file Last Filed Vital Signs Vital Sign Reading Time Taken Comments Blood Pressure 120/70 02/20/2018 11:29 AM EST Pulse 86 01/22/2018 8:10 AM EDT Temperature 37.7 C (99.9 F) 01/22/2018 8:10 AM EDT Respiratory Rate 18 01/22/2018 8:10 AM EDT Oxygen Saturation 96% 01/22/2018 8:10 AM EDT Inhaled Oxygen Concentration - - Weight 104.8 kg (231 lb) 02/20/2018 11:12 AM EST Height 172.7 cm (5' 8 ) 02/20/2018 11:12 AM EST Body Mass Index 35.12 02/20/2018 11:12 AM EST Plan of Treatment Health Maintenance Due Date Last Done Comments Annual Wellness Exam 1960 Hepatitis C Screening 1975 DTaP/TDaP/Td (1 - Tdap) 1976 Cologuard 2002 Colon Cancer Screening 2002 Colonoscopy 2002 FIT 2002 Sigmoidoscopy 2002 Virtual Colonography 2002 Pneumococcal Vaccine 50+ (1 of 1 - PCV) 2007 Zoster (1 of 2) 2007 Low Dose Lung Cancer Screening 11/06/2016 11/07/2015 COVID-19 Vaccine (2024-2 6 season) 2024 Influenza Vaccine (#1) 2024 Hepatitis B Vaccine Aged Out No longe r eligible based on patient's age to complete this topic Meningococcal B Vaccine Aged Out No l onger eligible based on patient's age to complete this topic Medical Devices Implanted Type Area Direct Mail Clerk Device Identifier Shelf Expiration Date Model / Serial / Lot Patch Vascular Biologic Xenosure 0.8cm X 8cm - [id number] Implanted:Qty: 1 on 01/20/2018 by Delio Lopez DO at [facility] Right: Femoral Artery [employer] 07/17/2023 [id number] / / [id number] Procedures Procedure Name Priority Date/Time Associated Diagnosis Comments CT CHEST WO CONTRAST Routine 11/07/2015 12:08 PM EDT Solitary pulmonary nodule from Last 3 Months or Most Recently Relevant to Health Maintenance Results * CT CHEST WO CONTRAST (11/07/2015 12:08 PM EDT) Anatomical Region Laterality Modality Chest Computed Tomogra phy Impressions 11/08/2015 9:16 AM EDT : 1. Mild emphysema and mild bronchitis. 2. Subtle centrilobular ground-glass nodules of both upper lobes. Differential diagnosis includes respiratory bronchiolitis and nonspecific infectious/inflammatory bronchiolitis. Consider bacterial, mycobacterial, and fungal etiologies. 3. Several noncalcified sub cm pulmonary nodules bilaterally, probably secondary to old granulomatous disease. However, follow up CT chest in six months is recommended to show stability. 4. Fatty infiltration of the partially visualized liver. Roland Beard M.D. Narrative 11/08/2015 9:16 AM EDT EXAMINATION: CT Chest Dated 11/07/2015. CLINICAL HISTORY: 60-year-old male with cough and shortness of breath. COMPARISON: No prior studies are available for comparison. TECHNIQUE: Noncontrast 5-mm thick contiguous axial CT images were obtained through the chest. Coronal images were created from the axial data. Patient exposure is reduced by automated exposure control whenever possible on CT examinations. When that technique is not available, patient exposure is reduced by adjusting the mA and/or kV according to patient's size. FINDINGS: No enlarged mediastinal, hilar, or axillary nodes are identified. Calcified mediastinal and hilar nodes, indicative of old granulomatous disease. Dense atherosclerotic calcifications of the coronary arteries. Heart size is normal. No significant pericardial fluid/thickening. No pleural fluid. The visualized portions of the upper abdomen included in this examination of the chest show fatty infiltration of the partially visualized liver. Mild diverticulosis of the partially visualized colon. No evidence of diverticulitis. Lung window images show mild emphysema. Subtle centrilobular ground-glass nodularity of both upper lobes. Several noncalcified sub cm pulmonary nodules bilaterally as marked, left greater than right. The largest nodule, located in the lingula on image #32, might be partially calcified and measures 8-mm in largest dimension. Mild dependent atelectasis of both lower lobes. Mild diffuse bronchial wall thickening. Bone window images reveal no aggressive lytic or sclerotic bone lesions. Partial fusion of the T4-T5 disk space. Victorina Mcrae MD [facility] [place] [facility] ORDER[place] Final Result from Last 3 Months or Most Recently Relevant to Health Maintenance Insurance [employer] PPO Member Subscriber Plan / Payer (Ef fective 2017-Present) Name:Solomon Thurman Relation to Subscriber:Self Name:Solomon Thurman Payer ID:[id number] (NAIC) Group ID:Not on file Type:Not on file Address: [id number] [place] [id number] Advance Directives For more information, please contact: [phone] * Full Code (Latest Code Status on File) Date Activated Date Inactivated Comments 01/22/2018 12:13 PM 01/22/2018 5:54 PM
--- OUTSIDE RECORDS SUMMARY | 2025-01-09 10:27 | XMS_ITS | Data Portability ---
Author Organization [place] - [facility] Address [address] [place] [address] Assessment No assessment recorded. Plan of Treatment Reminders Order Date Submit Date Provider Last Modified By Organization Details Last Modified Time Details Appointments None recorded. Lab None recorded. Referral None recorded. Procedures None recorded. Surgeries None recorded. Imaging LDCT, chest, for lung cancer screening [address] (Centralized Scheduling), [address], [place], [address], 4 08:36:20 LDCT, chest, for lung cancer screening [address] (Centralized Scheduling), [address], [place], [address], 4 11:40:48 Medication Orders doxycycline hyclate 100 mg capsule 2024 [address], [address], 5 14:16:19 Medrol (Dewey) 4 mg tablets in a dose pack 2024 [address], [address], 5 14:16:19 Lactobacill us acidophilus 1 billion cell tablet 2024 025 jdickerso n42 [facility], [address] [place] [address], [address], 5 14:16:19 albuterol sulfate HFA 90 mcg/actuati on aerosol inhaler 2024 [address], [address], 5 14:15:39 ipratropium 0.5 mg-albutero l 3 mg (2.5 mg base)/3 mL nebulizatio n soln 2024 025 jdickerso n42 [facility], [address] [place] [address], [address], 5 14:15:39 Patient TargetsNo targets recorded. Patient Instructions Encounter Date Encounter Id Patient Instructions Last Modified By Organization Details Last Modified Time 05/13/2023 [id number] LDCT scan o f chest in October 19, 2023 for 1 year follow-up continue Trelegy, albuterol, duo nebs. Tobacco cessation. Return to clinic in 6-7 months. [email or web address] Not available 05/13/2023 12:00:28 11/18/2023 [id number] LDCT scan o f chest in October 19, 2023 for 1 year follow-up, he is late, this was previously ordered continue Trelegy, albuterol, duo nebs. Tobacco cessation. Telephone call in [address] follow up, see him back in 6 months. [email or web address] Not available 11/18/2023 12:36:03 05/06/2024 [id number] LDCT scan o f chest in November 2024 for 1 year follow-up continue albuterol, duo nebs. Tobacco cessation. He is off Trelegy as this caused dizziness. Return to clinic in 3 months. [email or web address] Not available 05/06/2024 12:41:09 07/27/2024 [id number] LDCT scan o f chest in November 2024 for 1 year follow-up, as per primary care provider or another cardiothoracic surgeon, he is aware continue albuterol or duo [...] He voiced understanding of all the above. [email or web address] Not available 07/27/2024 14:15:02 Reason for Referral None Reported. Results Created Date Observation Date Name Description Value Unit Range Abnormal Flag Note LastModifiedBy Organization Detail LastModifiedTime 10/19/1910/18/2022 LDCT, chest , [facility] lung [facility] [place] [facility] Name: DEVANG RIVERA [facility] Medica l [employer] Phys: Leroy maki MD, Hernesto Hernandez [facility] [place] [address] : 1955 Age: 67 Sex: M Acct: [id number] Loc: G.CT PHONE #: Exam Date: 2022 Status : REG CLI FAX #: Rad# [id number] Unit# [id number] Admit Date: 2022 EXAMS: CPT CODE: [id number] CT CHEST LDCT LUNG SCREEN G0297 [...] 5 PAGE 1 Signed Report (GER NUED) [place] [facility] Name: DEVANG RIVERA Y [address] Phys: Leroy maki MD, [place] [address] : 1955 Age: 67 Sex: M Acct: [id number] Loc: Marti.CT PHONE #: Exam Date: 2022 Status : REG CLI FAX #: Rad# [id number] Unit# [id number] Admit Date: 2022 EXAMS: CPT CODE: [id number] CT CHEST LDCT LUNG SCREEN G0297 [...] Y Consul ting Provid er: RUPALI HERNANDEZ [address] , [place], [address], 11/06/2022 16:22:32 10/25/19 23 10/22/2022 XR, elbow No observ ation record ed. [facility] [address], [place], [address], 10/24/2022 08:39:26 11/08/19 23 10/18/2022 LDCT, chest , for lung cance r [place] No observ ation record ed. [address] (Centralized Scheduling) [address] [place] [address] [place], [address], 11/07/2022 17:15:41 05/13/19 24 10/18/2022 LDCT, chest , for lung cance r [place] No observ ation record ed. [address] (Centralized Scheduling) [address] [place] [address] [place], [address], 05/13/2023 15:27:54 11/28/19 24 11/28/2023 LDCT, chest , for lung cance r adane wally [place] [facility] Name: DEVANG RIVERA [facility] [employer] [facility] [address] Phys: Leroy maki MD, [place] [address] : 1955 Age: 68 Sex: M Acct: [id number] Loc: G.CT PHONE #: Exam Date: 2023 Status : REG CLI FAX #: Rad# [id number] Unit# [id number] Admit Date: 2023 EXAMS: CPT CODE: [id number] CT CHEST LDCT LUNG SCREEN G0297 [...] . PAGE 1 Signed Report (GER NUED) [place] [facility] Name: DEVANG RIVERA [address] [employer] Phys: Leroy maki MD, [place] [address] : 1955 Age: 68 Sex: M Acct: [id number] Loc: G.CT PHONE #: Exam Date: 2023 Status : REG CLI FAX #: Rad# [id number] Unit# [id number] Admit Date: 2023 EXAMS: CPT CODE: [id number] CT CHEST LDCT LUNG SCREEN G0297 [...] Y Consul ting Provid er: RUPALI HERNANDEZ [address] , [place], [address], 12/03/2023 08:36:20 Result Notes Documentation Provider Name and Address Organization Details Recorded Time Ldct, Chest, For Lung Cancer Screening : [facility] Ce Name: ADRIANNA BOWER [facility] [employer] Phys: [place] [address] : 1955 Age: 68 Sex: M Acct: [id number] Loc: G.CT PHONE #: Exam Date: 11/28/2023 Status: REG CLI FAX #: Rad# [id number] Unit# [id number] Admit Date: 11/28/2023 EXAMS: CPT CODE: [id number] CT CHEST LDCT LUNG SCREEN G0297 CLINICAL [...] 12 months. PAGE 1 Signed Report (CONTINUED) [facility] Ce Name: ADRIANNA BOWER [facility] [employer] Phys: Kb MISTRY, [place] [address] : 1955 Age: 68 Sex: M Acct: [id number] Loc: Marti.CT PHONE #: Exam Date: 11/28/2023 Status: REG CLI FAX #: Rad# [id number] Unit# [id number] Admit Date: 11/28/2023 EXAMS: CPT CODE: [id number] CT CHEST LDCT LUNG SCREEN G0297 LRAD2 [...] Technologist: JONATHAN CERVANTES Transcribed Date/Time: 11/28/2023 (154) [employer] Project Manager: Electronic Signature Date/Time: 11/28/2023 (1547) Printed Date/Time: 11/28/2023 (1549) BATCH NO: N/A PAGE 2 Signed Report CC'ed Logic: Ordering Provider: KB SHERMAN Attending Provider: KB SHERMAN Referring Provider: KB SHERMAN Consulting Provider: RUPALI HERNANDEZ Georgia burton, TREVOR Geronimo LPNT [facility] & [place] 12/03/2023 08:36:20 Problems Name Problem SNOMED Code Status Onset Date Resolution Date Notes Provider Name and Address Organization Details Recorded Time Multiple nodules of lung 882840159 Active 2021 Crystal Santi burton, TREVOR - LPNT [facility] [place] 2 13:49:04 Chronic obstructive pulmonary disease 31963367 Active 2022 Sean Tolbert MD [address] [place] [address],Bryanna te [address] [place] [address], [address], TREVOR Geronimo LPNT [facility] & [place] 3 22:27:57 Pulmonary emphysema 59716772 Active 2022 Sean Tolbert MD [address] [place] [address],[address], [place], [address], TREVOR - OPALNT - [place] & [place] 3 22:28:03 Acute exacerbation of chronic obstructive pulmonary disease 229690251 Active 2024 Georgia burton, TREVOR - LPNT [facility] & [place] 5 14:14:21 Problem Notes None recorded. Procedures Surgical History Date Name Laterality Status Provider Name and Address Organization Details Recorded Time Arthroscopy, shoulder, surgi completed [place] Geronimo LPNT [facility] [place] 04/11/2022 10:08:59 complete repair of rotator cuff completed [place] [facility] TREVOR Geronimo LPNT [facility] [place] 04/11/2022 10:09:39 cardiac pacemaker procedure completed [place] [facility] TREVOR Geronimo LPNT [facility] [place] 05/13/2023 11:51:27 Imaging Results None recorded. Procedure [...] 05/06/2024 64 /min Sean pulido MD [address], [place], [address], [employer] [facility] & [place] 05/06/2024 12:41:32 Date Recorded Body height Body mass index (BMI) Body weight Oxygen saturation Oxygen saturation in Arterial blood by Pulse oximetry Respiratory rate Systolic And Diastolic Provider Name and Address Organization Details Last Updated DateTime 5 175.26 cm 34.3 kg/m2 014169. 87 g 98 % 98 % 14 /min 130/74 mm[Hg] Georgia AntoineCirqle.nljeannie [employer] Juanpablo HARJEET [facility] [place] 5 12:23:26 Date Recorded Body height Body mass index (BMI) Body weight Oxygen saturation Oxygen saturation in Arterial blood by Pulse oximetry Heart rate Respiratory rate Systolic And Diastolic Provider Name and Address Organization Details Last Updated DateTime 4 175.26 cm 34.9 kg/m2 983424. 8 g 98 % 98 % 64 /min 14 /min 138/78 mm[Hg] Georgia Antoineroverto [employer] - [facility] & [place] 4 11:48:51 Date Recorded Heart rate Body temperature Provider N tarsha and Address Organization Details Last Updated DateTime 07/27/2024 67 /min 97.7 [degF] Sean Tolbert MD [address] [place] [address],[address], [place], [address], TREVOR LPNT [facility] [place] 07/27/2024 14:13:08 Date Recorded Body height Body mass index (BMI) Body weight Oxygen saturation Oxygen saturation in Arterial blood by Pulse oximetry Respiratory rate Systolic And Diastolic Provider Name and Address Organization Details Last Updated DateTime 5 175.26 cm 34.4 kg/m2 432587. 02 g 96 % 96 % 12 /min 122/68 mm[Hg] Georgia MURRAY - LPNT [facility] [place] 5 14:10:31 Date Recorded Body height Body temperature Heart rate Respiratory rate Systolic And Diastolic Provider Name and Address Organization Details Last Updated DateTime 3 175.26 cm 97 [degF] 70 /min 18 /min 132/80 mm[Hg] My MURRAY - LPNT [facility] & [place] 3 09:38:13 Date Recorded Oxygen saturation Oxygen saturation in Arterial blood by Pulse oximetry Provider Name and Address Organization Details Last Updated DateTime 11/18/2023 97 % 97 % Sean Tolbert MD [address] [place] [address],[address], [place], [address], TREVOR LPNT [facility] [place] 11/18/2023 12:34:10 Date Recorded Body height Body mass index (BMI) Body weight Heart rate Respiratory rate Systolic And Diastolic Provider Name and Address Organization Details Last Updated DateTime 4 175.26 cm 34.8 kg/m2 726089. 36 g 65 /min 12 /min 136/74 mm[Hg] Georgia MURRAY - LPNT [facility] & [place] 4 12:24:11 Social History Question Answer Notes LastModified by Organizat ion Details LastModified Time Tobacco Smoking Status Current Every Day Smoker Current 1-2 PPD hx for 50 years Georgia Antoineroverto burton TREVOR - LPNT [facility] [place] 05/13/2023 11:51:08 Do You Have An Advance [...] anxious, or unable to sleep at night)? [id number] Information not available 11/18/2023 Family History Relationship Description Onset Age of this Age Resolved Age Notes LastModified by Organization Details LastModified Time Father Cerebrovascu lar accident Not available 0 04/11/2022 10:07:55 Medical History Condition Response Congestive Heart Failure (CHF) Y Other Y Heart Attack (WA) Y Heart Disease Y Hypertension Y COPD Y Past Encounters Encounter ID Performer Location Encounter Start Date Encounter Closed Date Diagnosis/Indication Diagnosis SNOMED-CT Code Diagnosis ICD10 Code Diagnosis IMO Codes Diagnosis Note [id number] MD [facility] [address] [place] [address] 04/11/2022 09:51:15 04/11/2022 10:09:56 Chronic obstructive pulmonary disease 86231435 J44.9 Pulmonary emphysema 8743 3001 J43.9 [id number] CHICO MTZ DO [facility] [address] [place], [place] [address] 10/24/2022 09:31:07 10/24/2022 10:09:13 Contusion of right elbow 3098086292 2810361 S50.01XA [id number] DO LAURE MICHAEL [facility] [address] [place], [place] [id number] 11/07/2022 09:13:52 11/07/2022 09:52:35 Strain of tendon of triceps brachii 463620131 S46.311D [id number] MD [facility] [address] [place] [address] DR [address] [place] [address] 05/13/2023 11:42:31 05/13/2023 12:01:17 Chronic obstructive pulmonary disease 71808091 J44.9 Pulmonary emphysema 8743 3001 J43.9 [id number] MD [facility] [address] [place] [address] DR [address] [place] [address] 11/18/2023 12:18:55 11/18/2023 12:37:22 Chronic obstructive pulmonary disease 79752673 J44.9 Pulmonary emphysema 8743 3001 J43.9 [id number] MD [facility] [address] [place] [address] DR [address] [place] [address] 05/06/2024 12:15:04 05/06/2024 12:41:55 Chronic obstructive pulmonary disease 19351777 J44.9 Pulmonary emphysema 8743 3001 J43.9 [id number] MD [facility] [address] [place] [address] DR [address] [place] [address] 07/27/2024 13:56:22 07/27/2024 14:09:47 Chronic obstructive pulmonary disease 11773343 J44.9 Pulmonary emphysema 8743 3001 J43.9 Acute exac erbation of chronic obstructive pulmonary disease 953459783 J44.1 704216 Health Concerns Section Related Observation LastModified by Organization Detai ls LastModified Time None Recorded Concern Status LastModified by Organization Details LastModified Time None Recorded Advance Directives Directive Y: Payers Insurance Date Sequence Insurance Name Policy Number Policy Castro Covered Member ID Castro Member ID Guarantor Name 07/24/2024 1 [facility] (MEDICAID REPLACEMENT - HMO) [id number] Adrianna D Olman [id number] Adrianna D Olman 11/18/2023 1 [place] (MEDIC[place]PLACEMENT/A DVANTAGE - HMO) Adrianna D Olman [id number] Adrianna D Olman 05/06/2024 1 [employer] - [employer]IC[employer] (PPO) Adrianna D Olman [id number] Adrianna D Olman 11/18/2023 1 [place]MEDICARE REPLACEMENT REGIONAL PPO) Adrianna D Olman [id number] Adrianna D Olman 11/18/2023 1 [facility] (MEDICAID REPLACEMENT - HMO) [id number] Adrianna D Olman [id number] Adrianna D Olman 11/18/2023 1 [facility] - FFS/TRADITION AL Adrianna D Olman [id number] Adrianna D Olman 11/18/2023 1 [id number] Adrianna D Olman [id number] Adrianna D Olman 07/27/2024 [employer] (MEDICARE REPLACEMENT/A DVANTAGE - PPO) Adrianna D Olman [id number] Adrianna D Olman 11/18/2023 1 [employer] (PPO) Adrianna D Olman [id number] Adrianna D Olman Notes Date Note Type Note Provider Name and Address Organization Details Recorded Time 3 text/html ROS as noted in the HPI Pt is here for f/u of his rt elbow. He reports the swelling is better and the pain. He reports he is 80% better-E4SF CHICO MTZ DO [address] [place] [address],[address], [place], [address], [facility] 11/07/2022 10:10:02 4 text/html 68-year-old male [...] he voiced understanding.Modified Wells criteria of 0. [place] of 1.He voices no cardiopulmonary complaints, no [...] before.*Recommend follow-up LDCT in 12 months.LRAD1 - [id number] - ANNUAL SCREENING IN 12 MONTHSCommunication: Per [...] in 12 months.LRAD2 - BENIGN APPEARANCE OR [id number] - ANNUAL SCREENING IN 12 MONTHSNOTE: Recommendations [...] to follow-up with primary care provider and/or senior reliability engineer for extensive coronary artery calcifications and borderline cardiac enlargement. Coronary artery calcifications may be associated with an increased risk of cardiovascular events, ill health, sickness, and , patient voiced understanding and stated he would follow-up with primary care provider and/or senior reliability engineer [facility] regarding these issues. He sees Dr [...] interactions with all of the prescribed and uigo-izx-xcufpls medications with a pharmacist, he voiced understanding. [...] again voiced understanding. Sean Tolbert MD [address] [facility] [address], [place], [address], [place] - LPNT - [place] & [place] 05/13/2023 12:00:47 4 text/html 68-year-old male with [...] he voiced understanding.Modified Wells criteria of 0. [place] of 2.He again voices no cardiopulmonary complaints, [...] before.*Recommend follow-up LDCT in 12 months.LRAD1 - [id number] - ANNUAL SCREENING IN 12 MONTHSCommunication: Per [...] in 12 months.LRAD2 - BENIGN APPEARANCE OR [id number] - ANNUAL SCREENING IN 12 MONTHSNOTE: Recommendations [...] to follow-up with primary care provider and/or senior reliability engineer for extensive coronary artery calcifications and borderline cardiac enlargement. Coronary artery calcifications may be associated with an increased risk of cardiovascular events, ill health, sickness, and , patient voiced understanding and stated he would follow-up with primary care provider and/or senior reliability engineer immediately regarding these issues. He sees Dr [...] interactions with all of the prescribed and runo-qsz-nbjvgxj medications with a pharmacist, he voiced understanding. [...] voiced understanding. Sean Tolbert MD [address] [place] [address], [place], [address], [place] - LPNT - [place] & [place] 11/18/2023 12:39:44 5 text/html 69-year-old male with [...] times a day. His chest x-ray at [facility] done May 05, 2024: As per [...] no sleep-related issues.Modified Wells criteria of 0. [place] of 0.He voices no other cardiopulmonary complaints, [...] Presence of coronary artery calcification is statisticallyAccession: [id number] Name: ADRIANNA BOWER Account #:associated with increased risk of cardiovascular events.*Recommend follow-up LDCT in 12 months.LRAD2 - BENIGN APPEARANCE OR [id number] - ANNUAL SCREENING IN 12 MONTHSCommunication: Per [...] before.*Recommend follow-up LDCT in 12 months.LRAD1 - [id number] - ANNUAL SCREENING IN 12 MONTHSCommunication: Per [...] in 12 months.LRAD2 - BENIGN APPEARANCE OR [id number] - ANNUAL SCREENING IN 12 MONTHSNOTE: Recommendations [...] to follow-up with primary care provider and/or senior reliability engineer for dense coronary artery calcifications and borderline cardiac enlargement. Dense coronary artery calcifications may be associated with an increased risk of cardiovascular events, immediate ill health, sickness, and , patient voiced understanding and stated he would follow-up with primary care provider and/or senior reliability engineer immediately regarding these issues. He sees Dr [...] interactions with all of the prescribed and kaip-doa-yoycyls medications with a pharmacist, he voiced understanding. [...] with their primary care provider and/or a cardiothoracic surgeon/sleep physician for all their future pulmonary needs/ issues/meds and all of their sleep needs/issues/meds, the patient voiced understanding. The patient was also instructed to follow-up with their primary care provider and/ or a cardiothoracic surgeon for all recommended future CT scans of the chest, the patient voiced understanding. I told the patient their lack of follow-up with recommended future CT scans of chest could result in future ill health, sickness, , the patient again voiced understanding.He voiced understanding of all the above. Sean Tolbert MD [address], [place], [address], [facility] & [place] 05/06/2024 12:42:58 5 text/html 69-year-old male with [...] times a day. His chest x-ray at [facility] done May 05, 2024: As per [...] no sleep-related issues.Modified Wells criteria of 0. [place] of 1.He voices no other cardiopulmonary complaints, [...] Presence of coronary artery calcification is statisticallyAccession: [id number] Name: ADRIANNA BOWER Account #:associated with increased risk of cardiovascular events.*Recommend follow-up LDCT in 12 months.LRAD2 - BENIGN APPEARANCE OR [id number] - ANNUAL SCREENING IN 12 MONTHSCommunication: Per [...] before.*Recommend follow-up LDCT in 12 months.LRAD1 - [id number] - ANNUAL SCREENING IN 12 MONTHSCommunication: Per [...] in 12 months.LRAD2 - BENIGN APPEARANCE OR [id number] - ANNUAL SCREENING IN 12 MONTHSNOTE: Recommendations [...] to follow-up with primary care provider and/or senior reliability engineer for dense coronary artery calcifications and borderline cardiac enlargement. Dense coronary artery calcifications may be associated with an increased risk of cardiovascular events, immediate ill health, sickness, and , patient voiced understanding and stated he would follow-up with primary care provider and/or senior reliability engineer immediately regarding these issues. He sees Dr [...] sugars, muscle weakness, dizziness, fatigue, cataract formation, WA, CVA, life-threatening arrhythmia, osteoporosis, slow wound healing, [...] interactions with all of the prescribed and feeb-cpa-hgyeija medications with a pharmacist, he voiced understanding. The patient was instructed to go to ER immediately if he does not to improve or worsens, he again voiced understanding.Patient was again warned if the patient does not follow up with the CT scan of chest as recommended, and follow-up with results of CT scan chest with another cardiothoracic surgeon or PCP, this may result in future ill health, sickness, and even , he again voiced understanding.I told the patient I will be retiring July 2024, the patient voiced understanding.The patient was instructed to follow-up with their primary care provider and/or a cardiothoracic surgeon/sleep physician for all their future pulmonary needs/ issues/meds and all of their sleep needs/issues/meds, the patient voiced understanding. The patient was also instructed to follow-up with their primary care provider and/ or a cardiothoracic surgeon for all recommended future CT scans of [...] to another sleep/pulmonary provider. Sean Tolbert MD [address] [place] [address],[address], [place], [address], [place] LP[facility] - [place] & [place] 07/27/2024 14:18:06
--- NOTE | 2025-01-09 10:31 | XR_ITS ---
PROCEDURE INFORMATION: Exam: XR Chest Exam date and time: 01/09/2025 10:51 AM Age: 69 years old Clinical indication: Shortness of breath; Additional info: Dyspnea TECHNIQUE: Imaging protocol: Radiologic exam of the chest. Views: 1 view. COMPARISON: CT ANGIO CHEST PE PROTOCOL 12/30/2024 10:58 PM FINDINGS: Tubes, catheters and devices: The left chest wall pacemaker leads are noted in the right atrium and the right ventricle. Lungs: Patchy opacity in the right lung base likely represents atelectasis or infection. Pleural spaces: Unremarkable. No pleural effusion. No pneumothorax. Heart/Mediastinum: Unremarkable. No cardiomegaly. Bones/joints: Unremarkable. IMPRESSION: 1. Patchy opacity in the right lung base likely represents atelectasis or infection. 2. The left chest wall pacemaker leads are noted in the right atrium and the right ventricle.
[2025-01-09 10:35] LABS: Coronavirus 19, PCR Not Detected (NotDetected); Influenza A, PCR Not Detected (NotDetected); Influenza B, PCR Not Detected (NotDetected)
--- NOTE | 2025-01-09 10:36 | HMH.EDGENADL ---
Discharge Plan Disposition Patient Disposition: Admitted Prescriptions Prescriptions: No Action aspirin [Adult Low Dose Aspirin] 81 mg tablet,delayed release (DR/EC) 81 mg PO DAILY bupropion HCl 150 mg tablet extended release 12 hr 150 mg PO DAILY Trelegy Ellipta 100-62.5-25 mcg blister with device 1 inh IH DAILY ranolazine 1,000 mg tablet extended release 12 hr 1,000 mg PO BID clopidogrel 75 mg Tablet 75 mg PO DAILY 30 Days Qty: 30 0RF spironolactone 25 mg Tablet 25 mg PO DAILY 30 Days Qty: 30 0RF Eliquis 5 mg Tablet 5 mg PO BID Qty: 60 0RF Jardiance 10 mg Tablet 10 mg PO DAILY 30 Days Qty: 30 0RF metoprolol succinate 100 mg Tablet Extended Release 24 Hr 100 mg PO HS 30 Days Qty: 30 0RF nitroglycerin [Nitrostat] 0.4 mg tablet, sublingual 0.4 mg sublingual Q5MINP PRN (Reason: chest pain) Rx Instructions: do not exceed 3 doses per episode olmesartan 40 mg tablet 40 mg PO DAILY Referrals Follow up/Referrals: Casimiro Camp DPM [Primary Care Provider, Medical] - See instructions Clinical Impressions Clinical Impression: Severe sepsis, Syncope, Fever, Generalized weakness, Pneumonia, JANAK (acute kidney injury), Myocardial injury Print Language Print Language: Setswana Discharge ED Provider: Graeme Sumner General Adult HPI General Chief complaint: Weakness Stated complaint: fever, Time Seen by Provider: 01/09/25 10:26 History of Present Illness HPI narrative: Patient is a 69-year-old with a history of heart failure with reduced ejection fraction also has diastolic dysfunction who had a heart cath last had 3 stents that were placed. States he was doing much better after that procedure. Does have some residual wrist pain in the right wrist but no redness or swelling or soft tissue abnormalities outside of the discomfort. Patient presents today to emergency department with fever and generalized weakness and syncope. States he had a syncopal episode yesterday. Went to [facility] had his AICD interrogated which was unremarkable. Was not having a fever or feeling sick at that time. Stated he began to have chills and fever and bodyaches around noon yesterday and also also had developed increased shortness of breath and a cough. Denies any urinary symptoms denies any rashes anywhere else. Denies any abdominal pain. Has not had any antipyretics prior to arrival today. Related Data Home Medications ?Medication ?Instructions ?Recorded ?Confirmed aspirin 81 mg tablet,delayed 81 mg PO DAILY 04/10/17 12/30/24 release (Adult Low Dose Aspirin) bupropion HCl 150 mg tablet,12 hr 150 mg PO DAILY 04/10/17 12/30/24 sustained-release fluticasone fur. 100 mcg-umeclid 1 inh inhalation DAILY 10/19/21 12/30/24 62.5 mcg-vilant 25 mcg inhalat.powder (Trelegy Ellipta) nitroglycerin 0.4 mg sublingual 0.4 mg sublingual Q5MINP PRN chest 09/17/23 12/30/24 tablet (Nitrostat) pain olmesartan 40 mg tablet 40 mg PO DAILY 09/17/23 12/30/24 ranolazine 1,000 mg 1,000 mg PO BID 12/29/24 12/30/24 tablet,extended release,12 hr Previous Rx's ?Medication ?Instructions ?Recorded apixaban 5 mg tablet (Eliquis) 5 mg PO BID #60 tabs 12/30/24 clopidogrel 75 mg tablet 75 mg PO DAILY 30 days #30 tabs 12/30/24 empagliflozin 10 mg tablet 10 mg PO DAILY 30 days #30 tabs 12/30/24 (Jardiance) metoprolol succinate 100 mg 100 mg PO HS 30 days #30 tabs 12/30/24 tablet,extended release 24 hr spironolactone 25 mg tablet 25 mg PO DAILY 30 days #30 tabs 12/30/24 Allergies Allergy/AdvReac Type Severity Reaction Status Date / Time rosuvastatin (From Crestor) Allergy Mild Back Pain Verified 12/31/24 00:11 [facility] Disclaimer: The information contained in this section may have been updated after the patient was seen, as this information can be updated by other users. Medical History SVT (supraventricular tachycardia) HFrEF (heart failure with reduced ejection fraction) Ventricular tachycardia Impotence Typical angina NYHA Class III cardiovascular function Post-operative complication Gynecomastia HHD (hypertensive heart disease) HLD (hyperlipidemia) CAD (coronary artery disease) Multiple nodules of lung Diastolic heart failure Obesity PAD (peripheral artery disease) Essential hypertension COPD (chronic obstructive pulmonary disease) GERD (gastroesophageal reflux disease) PVC (premature ventricular contraction) Systolic heart failure Tobacco dependence syndrome Surgical History History of endarterectomy Family History Other No significant family history Social History (Updated 12/29/24 @ 03:20 by Inga Moreno RN) Smoking Status: Current every day smoker tobacco type: cigarettes packs per day: 1 alcohol intake: never substance use type: denies use current occupational status: unemployed Travel in the last 8 weeks?: Inside the [place] household members: significant other housing: house current occupational exposures/hazards: No caffeine: Yes Have you lived/traveled outside [place] in past 30 days?: No Contact w/someone who lives/traveled outside [place] past 30 days?: No Exposure to someone with infectious disease in past 14 days?: No Do you have a fever (greater than 100.4 F or 38 C)?: No Have you tested positive for COVID-19?: No Exposed to someone with COVID-19 in past 14 days?: No Do you have a sore throat?: No Do you have a cough?: No Do you have any weakness?: No Do you have any diarrhea?: No Are you experiencing any unusual bleeding?: No Do you have any muscle aches/pain?: No Do you have any abdominal pain?: No Are you experiencing loss of taste or smell?: No Other Medical History Have you received the Flu Vaccine for this season: No Have you received the Pneumonia Vaccine: No ROS Obtained: Yes All systems reviewed & no additional complaints except as documented Physical Exam General General appearance: other (Ill-appearing very weak unable to stand without assistance) Respiratory Respiratory exam: Present normal lung sounds bilaterally; Absent respiratory distress Cardiovascular Cardiovascular exam: Present regular rate and normal rhythm Abdominal Exam Abdominal exam: Present soft; Absent distention or tenderness Extremities Exam Extremities exam: Present other (Right wrist appears normal recent cath site is not erythematous no bulging or fluctuance no significant tenderness) Neurological Exam Neurological exam: Present alert and oriented X3 Medical Decision Making Medical Records Screening: Per USPSTF and CDC recommendations, given the prevalence of disease in our region, it is our hospital?s policy to screen for HIV and viral Hepatitis for all patients aged 18 and over and those with ongoing risk factors. Shaquille Inquiry Pt receiving controlled substance: No Vital Signs: 01/09/25 10:25 01/09/25 10:31 01/09/25 10:40 Temperature 102.5 F H Temperature Source Oral Pulse Rate 79 73 Pulse Rate [Radial] 77 Respiratory Rate 25 H Blood Pressure 125/60 121/56 L Blood Pressure [Left Arm] 121/56 L Blood Pressure Mean [Left Arm] 77 Blood Pressure Source [Left Arm] Automatic Cuff Blood Pressure Position [Left Arm] Sitting 02 Sat by Pulse Oximetry 94 L 94 L 96 Oxygen Delivery Method Room Air Room Air Room Air Lab Data Lab results reviewed: Yes I reviewed the patient's lab results. Lab Results 01/09/25 10:25: SARS-CoV-2 (PCR) Not detected, Influenza A Untype (PCR) Not detected, Influenza Type B (PCR) Not detected 01/09/25 10:31: VBG pH 7.32, VBG pCO2 41.8, VBG pO2 31.1, VBG HCO3 21.1 L, VBG Total CO2 22.3 L, VBG O2 Saturation 55.5, VBG Base Excess -5.0 L, VBG Lactic Acid 2.7 H 01/09/25 10:34: HCV Ab ANITRA w/Rflx PCR Qn Negative, HIV Ag/Ab Combo Qual Negative 01/09/25 10:36: WBC 8.2, RBC 4.00 L, Hgb 12.1 L, Hct 36.7 L, MCV 91.8, MCH 30.3, MCHC 33.0, RDW 13.8, Plt Count 181, MPV 8.7, Neut % (Auto) 89.2 H, Lymph % (Auto) 7.8 L, [place] % (Auto) 2.8, Eos % (Auto) 0.0 L, Baso % (Auto) 0.1, Neut # (Auto) 7.3, Lymph # (Auto) 0.6 L, [place] # (Auto) 0.2, Eos # (Auto) 0.0, Baso # (Auto) 0.0, Sodium 132 L, Potassium 3.9, Chloride 99, Carbon Dioxide 22, Anion Gap 14.9, BUN 25 H, Creatinine 2.00 H, Estimated Creat Clear 52, Estimated GFR 33 L, Est GFR ( Amer) 41 L, Glucose 141 H, Calcium 8.3 L, Phosphorus 2.6, Magnesium 1.6, Total Bilirubin 0.6, AST 28, ALT 23, Alkaline Phosphatase 62, Troponin I 0.06 H, NT-Pro-B Natriuret Pep 1760 H, Total Protein 7.3, Albumin 3.9, Globulin 3.4 H, Albumin/Globulin Ratio 1.1, TSH 0.59 01/09/25 10:36 01/09/25 10:36 Orders (Tests/Meds): ED MEDICATIONS Generic Name Dose Route Start Last Admin Trade Name Freq PRN Reason Stop Dose Admin Cefepime HCl 2 gm/ Sodium 100 mls @ 200 mls/hr 01/09/25 12:21 Chloride IV 01/09/25 12:50 ONCE ONE Metronidazole 500 mg in 100 mls @ 100 mls/hr 01/09/25 12:21 Flagyl 500mg/100ml Ivpb IV 01/09/25 13:20 ONCE ONE Vancomycin/PEG/NADA/Lysine/Water 1.75 gm in 350 mls @ 175 mls/hr 01/09/25 12:30 Vancomycin 1.75gm/350ml (Peg) Premix IV 01/09/25 14:29 ONCE ONE Discontinued Medications Generic Name Dose Route Start Last Admin Trade Name Freq PRN Reason Stop Dose Admin Acetaminophen 1,000 mg 01/09/25 10:33 01/09/25 10:47 Acetaminophen 500mg Tab PO 01/09/25 10:34 1,000 mg ONCE ONE Administration Sodium Chloride 500 mls @ 999 mls/hr 01/09/25 10:31 01/09/25 11:33 Sod Chlor 0.9% 1000ml Bag IV 01/09/25 11:01 Infused .Q31M ONE Infusion Miscellaneous 1 each 01/09/25 12:30 Vancomycin Consult Request NOTAPPLIC 02/08/25 12:29 CONSULT PHARMACY [facility] ORDERS Category Date Time Status CXR --portable [XR chest portable] Stat Exams 01/09/25 10:31 Completed Wrist XR right minimum 3 views [XR wrist RT min 3V] Exams 01/09/25 10:51 Completed Stat BNP [NT Pro Brain Natriuretic Pep.] Stat Lab 01/09/25 10:36 Completed CBC w/Auto Diff [Complete Blood Count Auto Diff] Stat Lab 01/09/25 10:36 Completed CMP [Comprehensive Metabolic Panel] Stat Lab 01/09/25 10:36 Completed HIV Combo Stat Lab 01/09/25 10:34 Completed Hepatitis C Ab Qual. W/ RFX Stat Lab 01/09/25 10:34 Completed Magnesium Stat Lab 01/09/25 10:36 Completed Phosphorous Stat Lab 01/09/25 10:36 Completed Rapid PCR Covid and Flu A/B Stat Lab 01/09/25 10:25 Completed TSH [Thyroid Stimulating Hormone] Stat Lab 01/09/25 10:36 Completed Trop I [Troponin I] Stat Lab 01/09/25 10:36 Completed Troponin I Q3H Lab 01/09/25 13:45 Ordered Troponin I Q3H Lab 01/09/25 16:45 Ordered UA [Urinalysis and Microscopic] Stat Lab 01/09/25 10:31 Ordered Blood Culture Stat Micro 01/09/25 11:19 Received Venous Blood Gas Stat RT 01/09/25 10:31 Completed Tissue Perfus/Sepsis Re-Eval Sepsis Re-Evaluation Performed: Yes Date Performed: 01/09/25 Time Performed: 12:33 Medical Decision Narrative: 69-year-old with above history and physical presenting today with severe generalized weakness syncope as well as fever. He is febrile to 102 here. He is not tachycardic or tachypneic is awake alert and oriented at the moment. Differential includes bacteremia, pneumonia, urinary tract infection, viral infection such as COVID flu etc. Broad workup is pending blood cultures have been sent will give him 500 cc of fluid from resuscitative standpoint his most recent ejection fraction was 30 to 40% he should be able to tolerate this. Does not appear to be volume overloaded. Tylenol has been administered from an antipyretic standpoint. Will have a low threshold to admit this patient. Reassessment 12:43 PM patient has been mildly tachypneic and also febrile therefore meets SIRS criteria given the fact that I have a suspicion for infection and patient has endorgan damage with acute kidney injury and a myocardial injury will call this severe sepsis at the moment. With his heart failure will not aggressively resuscitate the patient therefore the 30 cc/kg bolus has not been performed. Serial assessment show maps above 65 with good peripheral perfusion. Bank cefepime and Flagyl have been initiated. On chest x-ray that I personally performed there is a right lower lobe opacity questionable developing pneumonia patient does have a mild cough this is possibly the source of infection but not definitively. I still suspect the patient may be bacteremic. Also patient had severe pain in the right wrist no definitive evidence from her clinical standpoint that there is any infection or septic joint I did perform a plain film just to see if there is any obvious bony destruction and there is no evidence of this in my personal interpretation. Will not proceed with joint tap or MRI at the moment but that remains on the differential as well. No evidence of shock. Patient ultimately admitted for further evaluation and management. Critical Care Critical Care Time Critical Care Time: Yes Attestation: On 01/09/25, the high probability of a clinically significant, sudden or life threatening deterioration of the following system(s) required my full and direct attention, intervention and personal management. The time I documented below is in addition to time spent performing reported procedures but includes the following listed in this critical care notation. Total Time Total Critical Care Time: 35
[2025-01-09 10:46] LABS: VBG HCO3 21.1 mmol/L (23-30); VBG PCO2 41.8 mmol/L (35-51); VBG PH 7.32 mmol/L (7.31-7.41); VBG PO2 31.1 mmol/L (28-40)
[2025-01-09 10:47] LABS: Lactate Venous 2.7 mmol/L (0.4-2.0)
[2025-01-09] MEDS: ACETAMINOPHEN 500MG TAB 1000 MG PO (10:47)
[2025-01-09] MEDS: 0.9 % SODIUM CHLORIDE 1000ML 500 ML 999 ML IV (10:47)
[2025-01-09 10:48] LABS: Hematocrit 36.7 % (42.0-52.0); Hemoglobin 12.1 g/dL (14.1-18.0); Immature Granulocytes % 0.1 %; Mean Corpuscular HGB Conc 33.0 g/dL (31.8-35.4); Mean Corpuscular Hemoglobin 30.3 pg (27.0-31.2); Mean Corpuscular Volume 91.8 fl (80-94); Nucleated Red Blood Cells % 0 %; Platelet Count 181 K/mm3 (142-424); Red Blood Count 4.00 M/mm3 (4.60-6.20); Red Cell Distribution Width-SD 46.8 fL; White Blood Count 8.2 K/mm3 (4.8-10.8)
[2025-01-09 10:51] LABS: Albumin Level 3.9 g/dl (3.5-5.0); Chloride 99 mmol/L (98-107); Potassium 3.9 mmoL/L (3.5-5.1); Sodium 132 mmol/L (136-145)
--- NOTE | 2025-01-09 10:51 | XR_ITS ---
PROCEDURE INFORMATION: Exam: XR Right Wrist Exam date and time: 01/09/2025 10:54 AM Age: 69 years old Clinical indication: Pain; Wrist; Right TECHNIQUE: Imaging protocol: Radiologic exam of the right wrist. Views: 3 or more views. COMPARISON: No relevant prior studies available. FINDINGS: Bones/joints: Normal. Soft tissues: Normal. IMPRESSION: No acute findings.
[2025-01-09 10:54] LABS: Alanine Aminotransferase 23 U/L (12-78); Albumin/Globulin Ratio 1.1 (1.1-1.8); Alkaline Phosphatase 62 U/L (38-126); Anion Gap 14.9 mEq/L (5-15); Aspartate Amino Transferase 28 U/L (17-59); Bilirubin,Total 0.6 mg/dl (0.2-1.3); Blood Urea Nitrogen 25 mg/dl (9-20); Calcium 8.3 mg/dl (8.4-10.2); Carbon Dioxide 22 mmol/L (22.0-30.0); Creatinine Clearance Estimated 52 mL/min (50-200); Creatinine,Serum 2.00 mg/dl (0.66-1.25); Estimated Glomerular Filt Rate 33 ml/min (>60); GFR (African American) 41 ML/MIN (>60); Globulin 3.4 g/dL (1.3-3.2); Glucose 141 mg/dl (74-100); Phosphorous 2.6 mg/dl (2.5-4.5); Total Protein,Serum 7.3 g/dl (6.3-8.2)
[2025-01-09 10:55] LABS: Magnesium 1.6 mg/dl (1.6-2.3)
[2025-01-09 11:04] LABS: NT Pro Brain Natriuretic Pep. 1760 pg/mL (0-125)
[2025-01-09 11:06] LABS: Troponin I 0.06 ng/ml (0.00-0.034)
[2025-01-09 11:26] LABS: Thyroid Stimulating Hormone 0.59 uIU/mL (0.465-4.68)
[2025-01-09 12:05] LABS: Hepatitis C Ab Qual. W/ RFX NEGATIVE (Negative)
[2025-01-09] MEDS: METRONIDAZ/SOD CHL 500 MG/100 ML PIGGYBACK 100 MG IV ×2 (12:38→20:42)
--- NOTE | 2025-01-09 12:40 | HMH.PHAINT1 ---
Pharmacy Intervention Comments: MEDICATION RECONCILIATION COMPLETED ON PATIENT USING EXTERNAL FILL HISTORY FROM PHARMACY. -[facility], JUAND
--- NOTE | 2025-01-09 13:01 | EXP.HP ---
History of Present Illness *Admission Date: 01/09/25 *Reason for visit:: weakness, SOA, cough *History of present illness: Mr. Thurman is a 69-year-old male with history of heart failure with reduced ejection fraction, new diagnosis of A-fib, AICD, COPD, tobacco dependence, hyperlipidemia, hypertension, and recent left heart cath on 12/31 with placement of 3 stents. He presented to the ER today with episode of of syncope yesterday and further weakness and fatigue today. Has had increased cough, shortness of breath, body aches and subjective fevers at home. Presented yesterday due to a syncopal episode but workup in the ER was remarkable for low blood pressure that responded to IV fluids. Diuretics were held and symptoms progressed last night which led him to the ER at [facility]. On arrival to the ER, patient had fever 102.5. White count of 8.2. Chest imaging showing pneumonia. Troponin detectable at 0.06 with elevated BNP at 1700. Medicine consulted for admission and further management of symptoms consistent with sepsis and pneumonia. On arrival to the floor, patient feelers fatigued. at bedside says she has not seen him this sick ever. He is on room air. Alert and oriented x 4. Denies nausea or vomiting but does have dry nonproductive cough. [facility] Disclaimer: The information contained in this section may have been updated after the patient was seen, as this information can be updated by other users. Medical History Dizziness Crescendo angina Atypical angina SVT (supraventricular tachycardia) HFrEF (heart failure with reduced ejection fraction) Ventricular tachycardia Impotence Typical angina NYHA Class III cardiovascular function Post-operative complication Gynecomastia HHD (hypertensive heart disease) HLD (hyperlipidemia) CAD (coronary artery disease) Multiple nodules of lung Diastolic heart failure Obesity PAD (peripheral artery disease) Essential hypertension COPD (chronic obstructive pulmonary disease) GERD (gastroesophageal reflux disease) PVC (premature ventricular contraction) Systolic heart failure Tobacco dependence syndrome Surgical History Status post cardiac catheterization History of endarterectomy Family History Other No significant family history Social History Smoking Status: Current every day smoker tobacco type: cigarettes packs per day: 1 alcohol intake: never substance use type: denies use current occupational status: unemployed and retired Travel in the last 8 weeks?: Inside the [place] household members: significant other housing: house current occupational exposures/hazards: No caffeine: Yes Have you lived/traveled outside US in past 30 days?: No Contact w/someone who lives/traveled outside US past 30 days?: No Exposure to someone with infectious disease in past 14 days?: No Do you have a fever (greater than 100.4 F or 38 C)?: No Have you tested positive for COVID-19?: No Exposed to someone with COVID-19 in past 14 days?: No Do you have a sore throat?: No Do you have a cough?: No Do you have any weakness?: No Do you have any diarrhea?: No Are you experiencing any unusual bleeding?: No Do you have any muscle aches/pain?: No Do you have any abdominal pain?: No Are you experiencing loss of taste or smell?: No Other Medical History Have you received the Flu Vaccine for this season: No Have you received the Pneumonia Vaccine: No Review of Systems Review of Systems Review of systems (narrative): 14 point review of systems performed, pertinent positives and negatives as per HPI Meds Home Medications and Allergies Home Medications ?Medication ?Instructions ?Recorded ?Confirmed ?Type aspirin 81 mg tablet,delayed 81 mg PO DAILY 04/10/17 01/09/25 History release (Adult Low Dose Aspirin) bupropion HCl 150 mg tablet,12 hr 150 mg PO DAILY 04/10/17 01/09/25 History sustained-release fluticasone fur. 100 mcg-umeclid 1 inh inhalation DAILY 10/19/21 01/09/25 History 62.5 mcg-vilant 25 mcg inhalat.powder (Trelegy Ellipta) nitroglycerin 0.4 mg sublingual 0.4 mg sublingual Q5MINP PRN chest 09/17/23 01/09/25 History tablet (Nitrostat) pain olmesartan 40 mg tablet 40 mg PO DAILY 09/17/23 01/09/25 History ranolazine 1,000 mg 1,000 mg PO BID 12/29/24 01/09/25 History tablet,extended release,12 hr apixaban 5 mg tablet (Eliquis) 5 mg PO BID #60 tabs 12/30/24 01/09/25 Rx clopidogrel 75 mg tablet 75 mg PO DAILY 30 days #30 tabs 12/30/24 01/09/25 Rx metoprolol succinate 100 mg 100 mg PO HS 30 days #30 tabs 12/30/24 01/09/25 Rx tablet,extended release 24 hr New Prescriptions to Start Prescriptions: Allergies Allergy/AdvReac Type Severity Reaction Status Date / Time rosuvastatin (From Crestor) Allergy Mild Back Pain Verified 12/31/24 00:11 Exam Data for Last 24 hours Vital signs and Labs for Last 24 Hours: Temp Pulse Resp BP Pulse Ox O2 Del Method O2 Flow Rate 102.5 F H 72 22 108/57 L 95 Room Air 2 01/09/25 10:40 01/09/25 12:30 01/09/25 12:30 01/09/25 12:30 01/09/25 12:30 01/09/25 12:30 01/09/25 12:00 Laboratory Results - last 24 hr 01/09/25 10:25: SARS-CoV-2 (PCR) Not detected, Influenza A Untype (PCR) Not detected, Influenza Type B (PCR) Not detected 01/09/25 10:31: VBG pH 7.32, VBG pCO2 41.8, VBG pO2 31.1, VBG HCO3 21.1 L, VBG Total CO2 22.3 L, VBG O2 Saturation 55.5, VBG Base Excess -5.0 L, VBG Lactic Acid 2.7 H 01/09/25 10:34: HCV Ab ANITRA w/Rflx PCR Qn Negative, HIV Ag/Ab Combo Qual Negative 01/09/25 10:36: WBC 8.2, RBC 4.00 L, Hgb 12.1 L, Hct 36.7 L, MCV 91.8, MCH 30.3, MCHC 33.0, RDW 13.8, Plt Count 181, MPV 8.7, Neut % (Auto) 89.2 H, Lymph % (Auto) 7.8 L, [place] % (Auto) 2.8, Eos % (Auto) 0.0 L, Baso % (Auto) 0.1, Neut # (Auto) 7.3, Lymph # (Auto) 0.6 L, [place] # (Auto) 0.2, Eos # (Auto) 0.0, Baso # (Auto) 0.0, Sodium 132 L, Potassium 3.9, Chloride 99, Carbon Dioxide 22, Anion Gap 14.9, BUN 25 H, Creatinine 2.00 H, Estimated Creat Clear 52, Estimated GFR 33 L, Est GFR ( Amer) 41 L, Glucose 141 H, Calcium 8.3 L, Phosphorus 2.6, Magnesium 1.6, Total Bilirubin 0.6, AST 28, ALT 23, Alkaline Phosphatase 62, Troponin I 0.06 H, NT-Pro-B Natriuret Pep 1760 H, Total Protein 7.3, Albumin 3.9, Globulin 3.4 H, Albumin/Globulin Ratio 1.1, TSH 0.59 I & O for Last 24 hours: Intake & Output 01/06/25 01/07/25 01/08/25 01/09/25 23:59 23:59 23:59 23:59 Intake Total 500 / 500 Balance 500 / 500 Weight 102.512 kg Constitutional Constitutional: mild distress, obese, chronically ill appearing and cooperative *Routine HEENT Exam Head: Present normocephalic and atraumatic Eye: Present EOMI and PERRL ENT: Present mucous membranes moist *Routine Neck Exam Neck: Present supple, full ROM and trachea midline *Routine Respiratory Exam Respiratory: Present rhonchi, crackles (Very faint in right lower lung field, best heard in posterior lung field), normal respiratory effort, able to speak in complete sentences and symmetric chest movement; Absent wheezes *Routine Cardiovascular Exam Cardiovascular: Present Normal S1, Normal S2 and irregularly irregular *Routine Abdominal Exam Abdominal: Present soft, normoactive bowel sounds and obese *Routine Rectal Exam Rectal:: deferred *Routine Genitalia Exam Genitalia:: deferred *Routine Extremities Exam Extremities: Present full ROM and pulses intact Comments: Well-healed scars over both knees; right is tender to palpation but has no hematoma or bruising. Pulse intact Routine Back/Spine/Pelvis Exam Back/Spine: Present full ROM *Routine Skin Exam Skin: Present intact, dry and warm *Routine Neurological Exam Neurological: Present alert, oriented X3, CN II-XII intact, moving all extremities and normal speech Routine Psychiatric Exam Psychiatric: Present normal affect, normal thought process, cooperative, good insight and good judgment Assessment and Plan *Assessment and plan (1) Pneumonia: Status: Acute Category: Medical Code(s): J18.9 - Pneumonia, unspecified organism (2) Severe sepsis: Status: Acute Category: Medical Code(s): A41.9 - Sepsis, unspecified organism; R65.20 - Severe sepsis without septic shock (3) JANAK (acute kidney injury): Status: Acute Category: Medical Code(s): N17.9 - Acute kidney failure, unspecified (4) Unstable angina: Status: Acute Category: Medical Code(s): I20.0 - Unstable angina (5) HFrEF (heart failure with reduced ejection fraction): Status: Acute Category: Medical Code(s): I50.20 - Unspecified systolic (congestive) heart failure (6) COPD (chronic obstructive pulmonary disease): Status: Chronic Qualifiers: COPD type: emphysema Emphysema type: other Qualified Code(s): J43.8 - Other emphysema Category: Medical Code(s): J44.9 - Chronic obstructive pulmonary disease, unspecified (7) Tobacco dependence syndrome: Status: Chronic Category: Medical Code(s): F17.200 - Nicotine dependence, unspecified, uncomplicated (8) CAD (coronary artery disease): Status: Chronic Qualifiers: Associated angina: with stable angina Coronary Disease-Associated Artery/Lesion type: [place] artery [place] vs. transplanted heart: [place] heart Qualified Code(s): I25.118 - Atherosclerotic heart disease of [place] coronary artery with other forms of angina pectoris Category: Medical Code(s): I25.10 - Atherosclerotic heart disease of [place] coronary artery without angina pectoris (9) Essential hypertension: Status: Chronic Category: Medical Code(s): I10 - Essential (primary) hypertension (10) HLD (hyperlipidemia): Status: Chronic Qualifiers: Hyperlipidemia type: mixed hyperlipidemia Qualified Code(s): E78.2 - Mixed hyperlipidemia Category: Medical Code(s): E78.5 - Hyperlipidemia, unspecified (11) PAD (peripheral artery disease): Status: Chronic Category: Medical Code(s): I73.9 - Peripheral vascular disease, unspecified (12) PAF (paroxysmal atrial fibrillation): Status: Acute Category: Medical Code(s): I48.0 - Paroxysmal atrial fibrillation (13) Generalized weakness: Status: Acute Category: Medical Code(s): R53.1 - Weakness Plan Mr. Thurman is a 69-year-old male with recent admission for A-fib RVR and unstable angina, underwent left heart cath and received multiple stents on 12/31/2024. Was discharged home a week ago. Presents back to the ER with weakness, fever, chills and cough. History significant for A-fib, SVT, HFrEF, LHC with JEANNE, GERD, COPD, obesity, tobacco dependence, PAD, CAD, and pacemaker. Workup in the ER concerning for pneumonia, sepsis, JANAK. Discussed case with ER physician, request admission for further management of his sepsis. I decided to admit to [facility] for further care. Initiated broad-spectrum antibiotics. Anticipate patient will be admitted for at least 2 midnights. Problems addressed as follows: Severe sepsis JANAK Pneumonia - Meeting sepsis criteria with tachycardia, tachypnea with respiratory rate 25, pneumonia on chest imaging. Has organ dysfunction with JANAK. Necessitating inpatient management. - PSI/Port score of 77, class III risk. - Per my review of chest x-ray, has some patchy opacification in the right lung base. Given his cough, neutrophil predominant white count, and fever, clinically significant and consistent with pneumonia - Continue vancomycin, cefepime, Flagyl for broad coverage given recent hospitalization - Blood cultures pending - White count normal at 8.2 with 90% neutrophil predominance - Will attempt to obtain sputum culture - DuoNebs every 6 hours scheduled #Atrial fibrillation, recent onset NSTEMI, type II ? Rate controlled at this time. Continue Eliquis 5 mg twice daily, metoprolol succinate 100 mg nightly. - EKG ordered and pending to monitor for sinus versus A-fib - Continue to monitor on telemetry ?Consider cardiology consultation Saturday. ? Recent manipulation but also the stress of pneumonia with JANAK, troponin elevated at 0.06, BNP elevated at 1700 #CAD Heart failure with reduced ejection fraction, EF 40% ? Left heart cath performed 12/31/2024. Patient received 3 contiguous stents to the RCA. - Recently started on GDMT. Will hold Aldactone and olmesartan in the setting of JANAK and soft blood pressures/sepsis. Continue metoprolol succinate. Continue aspirin 81 mg daily, Plavix 75 mg daily, ranolazine at 1000 mg twice daily. - Echo obtained 2 weeks ago shows mild to moderate reduced LV, 40%. Severe hypokinesis of the distal and apical LV burgess. No valvular stenosis or regurgitation noted. ?Patient has dual-chamber ICD in place #Tobacco use disorder #COPD ? Patient states he is a daily smoker approximately 1 PPD. Discussed smoking cessation. Patient chest CTA is notable for cluster of less than 5 mm in size nodule in the posterior right upper lobe (favor postinfectious or inflammatory). - Continue Trelegy inhaler daily - Incentive spirometry - DuoNebs every 6 hours scheduled #Hyperlipidemia #Hypertension ? Patient elevated LDL, 112 2 weeks ago. Known history to [facility] with myalgias. Reevaluate injectable treatment as an outpatient - Blood pressure soft, meds as above #Mood disorder: Continue Wellbutrin 150 mg daily. Full code Eliquis Cardiac diet
--- NOTE | 2025-01-09 13:03 | EXP.PHA.CONS ---
Pharmacy Consult Date: 01/09/25 Time: 13:03 Referring provider: DR. BARNEY Reason for Consult:: VANCOMYCIN DOSING Allergies Allergy/AdvReac Type Severity Reaction Status Date / Time rosuvastatin (From Crestor) Allergy Mild Back Pain Verified 12/31/24 00:11 Home Medications ?Medication ?Instructions ?Recorded ?Confirmed ?Type aspirin 81 mg tablet,delayed 81 mg PO DAILY 04/10/17 01/09/25 History release (Adult Low Dose Aspirin) bupropion HCl 150 mg tablet,12 hr 150 mg PO DAILY 04/10/17 01/09/25 History sustained-release fluticasone fur. 100 mcg-umeclid 1 inh inhalation DAILY 10/19/21 01/09/25 History 62.5 mcg-vilant 25 mcg inhalat.powder (Trelegy Ellipta) nitroglycerin 0.4 mg sublingual 0.4 mg sublingual Q5MINP PRN chest 09/17/23 01/09/25 History tablet (Nitrostat) pain olmesartan 40 mg tablet 40 mg PO DAILY 09/17/23 01/09/25 History ranolazine 1,000 mg 1,000 mg PO BID 12/29/24 01/09/25 History tablet,extended release,12 hr apixaban 5 mg tablet (Eliquis) 5 mg PO BID #60 tabs 12/30/24 01/09/25 Rx clopidogrel 75 mg tablet 75 mg PO DAILY 30 days #30 tabs 12/30/24 01/09/25 Rx empagliflozin 10 mg tablet 10 mg PO DAILY 30 days #30 tabs 12/30/24 01/09/25 Rx (Jardiance) metoprolol succinate 100 mg 100 mg PO HS 30 days #30 tabs 12/30/24 01/09/25 Rx tablet,extended release 24 hr spironolactone 25 mg tablet 25 mg PO DAILY 30 days #30 tabs 12/30/24 01/09/25 Rx New Prescriptions to Start Prescriptions: Height: 1.73 m Weight: 102.512 kg Laboratory Results:: Laboratory Results - last 24 hr 01/09/25 10:25: SARS-CoV-2 (PCR) Not detected, Influenza A Untype (PCR) Not detected, Influenza Type B (PCR) Not detected 01/09/25 10:31: VBG pH 7.32, VBG pCO2 41.8, VBG pO2 31.1, VBG HCO3 21.1 L, VBG Total CO2 22.3 L, VBG O2 Saturation 55.5, VBG Base Excess -5.0 L, VBG Lactic Acid 2.7 H 01/09/25 10:34: HCV Ab ANITRA w/Rflx PCR Qn Negative, HIV Ag/Ab Combo Qual Negative 01/09/25 10:36: WBC 8.2, RBC 4.00 L, Hgb 12.1 L, Hct 36.7 L, MCV 91.8, MCH 30.3, MCHC 33.0, RDW 13.8, Plt Count 181, MPV 8.7, Neut % (Auto) 89.2 H, Lymph % (Auto) 7.8 L, [place] % (Auto) 2.8, Eos % (Auto) 0.0 L, Baso % (Auto) 0.1, Neut # (Auto) 7.3, Lymph # (Auto) 0.6 L, [place] # (Auto) 0.2, Eos # (Auto) 0.0, Baso # (Auto) 0.0, Sodium 132 L, Potassium 3.9, Chloride 99, Carbon Dioxide 22, Anion Gap 14.9, BUN 25 H, Creatinine 2.00 H, Estimated Creat Clear 52, Estimated GFR 33 L, Est GFR ( Amer) 41 L, Glucose 141 H, Calcium 8.3 L, Phosphorus 2.6, Magnesium 1.6, Total Bilirubin 0.6, AST 28, ALT 23, Alkaline Phosphatase 62, Troponin I 0.06 H, NT-Pro-B Natriuret Pep 1760 H, Total Protein 7.3, Albumin 3.9, Globulin 3.4 H, Albumin/Globulin Ratio 1.1, TSH 0.59 Medical History: Medical History (Updated 01/09/25 @ 12:22 by Graeme Sumner MD) Dizziness Crescendo angina Atypical angina SVT (supraventricular tachycardia) HFrEF (heart failure with reduced ejection fraction) Ventricular tachycardia Impotence Typical angina NYHA Class III cardiovascular function Post-operative complication Gynecomastia HHD (hypertensive heart disease) HLD (hyperlipidemia) CAD (coronary artery disease) Multiple nodules of lung Diastolic heart failure Obesity PAD (peripheral artery disease) Essential hypertension COPD (chronic obstructive pulmonary disease) GERD (gastroesophageal reflux disease) PVC (premature ventricular contraction) Systolic heart failure Tobacco dependence syndrome Assessment and Plan Assessment and plan all Dx Assessment and Plan for all problems:: Pharmacokinetic dosing service Objective: Patient: Floor: Age: 69 yo Serum creatinine: 2.00 mg/dL Height: 68.1 Inches Weight (kg): 102.5 Assessment: IBW (kg): 68.63 Dosing wt(kg): 102.5 Estimated Creatinine clearance (ml/min): 34.8 CRCL method: Cockcroft and Gault using ibw(default). Drug selected: Vancomycin Loading dose (mg): Vd (liters): 82.0 (factor used: 0.8 L/kg) Daniel (hr-1): 0.033 Half life (hrs): 21.00 CLvanco=?? 2.706 L/hr Recommended dose: 1500 mg Interval: 24 hrs Infusion time (hrs): 2.0 Predicted peak (mcg/mL): 32.4 Predicted trough (mcg/mL): 15.68 Total body weight is being used for vancomycin dosing. Recommendations: Give Vancomycin 1500 mg q 24 hrs with an expected Cpeak of 32.4 mcg/ml and an expected Ctrough of 15.68 mcg/ml AUC 0-24 /RAÚL Data: RAÚL 0.5 mcg/mL:?? AUC/RAÚL:? 1108.6 RAÚL 1.0 mcg/mL:?? AUC/RAÚL:? 554.3 --------- RAÚL 1.5 mcg/mL:?? AUC/RAÚL:? 369.5 RAÚL 2.0 mcg/mL:?? AUC/RAÚL:? 277.2 Thank you for the consult, will continue to follow. -JUAN AGGARWALD
[2025-01-09] MEDS: CEFEPIME HCL 2 GM in 0.9 % SODIUM CHLORIDE 100 ML IV (14:01)
[2025-01-09 14:34] LABS: Troponin I 0.05 ng/ml (0.00-0.034)
[2025-01-09 14:46] LABS: Reflex Lactic Add Lactic Reflex
[2025-01-09] MEDS: VANCOMYCIN/WATER FOR INJ (PEG) 1.75 GM/350 ML PIGGYBACK IV (14:51)
[2025-01-09 15:01] LABS: Lactic Acid Follow Up (RFLX 1) 1.4 mmol/L (0.7-2.1)
--- NOTE | 2025-01-09 15:59 | ECG_ITS ---
APPROVED REPORT Exam: Resting ECG HR:70 bpm ECG Measurements Heart Rate 70 AXES OH 195 P -77 QRSd 121 QRS -25 QT 316 T 0 QTc 337 Conclusion ELECTRONIC ATRIAL PACEMAKER SEPTAL MYOCARDIAL INFARCTION , PROBABLY OLD [40+ ms Q WAVE IN V1/V2] ABNORMAL ECG UNCONFIRMED REPORT Electronically signed by : Rick Vernon MD 01/10/2025 15:32:17
[2025-01-09 17:11] LABS: Troponin I 0.04 ng/ml (0.00-0.034)
[2025-01-09] MEDS: IPRATROPIUM/ALBUTEROL 3 ML NEB IH ×2 (18:08→23:02)
[2025-01-09] MEDS: SODIUM CHLORIDE 3% 15ML NEB 3 ML IH (18:08)
[2025-01-09] MEDS: ACETAMINOPHEN 325MG TAB 650 MG PO (20:43)
[2025-01-09] MEDS: RANOLAZINE 500MG ER TABLET 1000 MG PO (20:44)
[2025-01-09] MEDS: APIXABAN 5MG TABLET 5 MG PO (20:44)
[2025-01-09] MEDS: METOPROLOL SUCCINATE XL 100MG TABLET 100 MG PO (20:44)
--- OUTSIDE RECORDS SUMMARY | 2025-01-09 21:18 | XMS_ITS | Clinical Summary ---
Author Organization [facility] Address [facility] [place] [address] Care Team Providers Care Counter Pocket Sewer Name Role Phone Unavailable Primary Care Provider [...] therelease of HIV test results or diagnoses. [id number] Social History Tobacco Use Types Packs/Day Years Used Date Smoking Tobacco: Never Assessed Sex and Gender Information Value Date Recorded Sex Assigned at Not on file Legal Sex Male 8:19 PM EST Gender Identity Not on file Sexual Orientation Not on file Plan of Treatment Not on file
--- OUTSIDE RECORDS SUMMARY | 2025-01-09 21:18 | XMS_ITS | Clinical Summary ---
Author Organization [facility]ie T Address [address] [place] [address] Phone Care Team Providers Care Grades 1 Thru 5 Teacher Name Role Phone Unavailable Primary Care Provider Unavailabl e Allergies No known active allergies Medications eplerenone (INSPRA) 25 mg Oral Tablet Take 25 mg by mouth daily. Active buPROPion (WELLBUTRIN XL) 150 mg Oral Tablet Sustained Release 24 hrIndications:an xiety with depression Take 150 mg by mouth every morning. Active carvedilol (COREG) 12.5 mg Oral TabletIndication s:left ventricular dysfunction following RI Take 12.5 mg by mouth 2 times [...] obstructive pulmonary disease) (HC C) Hypertension Hyperlipidemia RI (myocardial infarction) (HCC) x2 Peripheral vascular disease [...] this topic Medical Devices Implanted Type Area Reducing Machine Operator Device Identifier Shelf Expiration Date Model / Serial / Lot Patch Vascular Biologic Xenosure 0.8cm X 8cm - [id number] Implanted:Qty: 1 on 01/20/2018 by Delio Lopez DO at [facility] Right: Femoral Artery LEMAITRE VASCULAR 07/17/2023 0.8P8 / / [id number] Procedures Procedure Name Priority Date/Time Associated Diagnosis [...] the T4-T5 disk space. Victorina Mcrae MD [facility] CT ORDERABLES Final Result from Last 3 Months or Most Recently Relevant to Health Maintenance Insurance [employer] PPO Member Subscriber Plan / Payer (Ef fective 2017-Present) Name:Solomon Thurman Relation to Subscriber:Self Name:Solomon Thurman Payer ID:[id number] (NAIC) Group ID:Not on file Type:Not on file Address: [id number] [place] [id number] Advance Directives For more information, please contact: [phone] * Full Code (Latest Code Status on File) Date Activated Date Inactivated Comments 01/22/2018 12:13 PM 01/22/2018 5:54 PM
--- OUTSIDE RECORDS SUMMARY | 2025-01-09 21:18 | XMS_ITS | Clinical Summary ---
Author Organization [facility] Address [address] [facility] [address] [place] [address] Care Team Providers Care Stone Cleaner Name Role Phone Russell Morrison MD Primary [...] patient's age to complete this topic Insurance [facility] MEDICARE ADVANTAGE Care Teams Stone Cleaner Relationship Specialty Start Date End Date Russell Morrison MD [address] [place] [address] PCP - General Family Medicine 05/26/20
--- OUTSIDE RECORDS SUMMARY | 2025-01-09 21:18 | XMS_ITS | Clinical Summary ---
Author Organization [facility] Address [address] [place] [address] Care Team Providers Care Fund Development Manager Name Role Phone Unavailable Primary Care Provider [...] 2007 UKY-Zoster Vaccines (1 of 2) 2007 [id number] Vaccine (1 - 20 24-25 season) 2024 [...]
[2025-01-10] VITALS (11 sets, daily range): BP systolic 111–145; BP diastolic 49–68; PULSE 52–80; RESP 16–20; TEMP 36.9–37.8; O2SAT 91–98; BMI 32.5
[2025-01-10 01:42] LABS: Acinetobacter calcoaceticus-ba Not Detected; Bacteroides fragilis Not Detected; Candida auris Not Detected; Candida glabrata Not Detected; Enterobacterales Not Detected; Enterococcus faecalis Not Detected; Enterococcus faecium Not Detected; Klebsiella aerogenes Not Detected; Klebsiella pneumoniae grp Not Detected; Proteus spp. Not Detected; Salmonella spp. Not Detected; Serratia marcescens Not Detected; Staphylococcus epidermidis Not Detected; Staphylococcus lugdunensis Not Detected; Staphylococcus spp. Detected; Stenotrophomonas maltophilia Not Detected; Streptococcus agalactiae(GrpB) Not Detected; Streptococcus pyogenes Group A Not Detected; Streptococcus spp. Not Detected; mecA/C and MREJ (MRSA) Detected
[2025-01-10] MEDS: CEFEPIME HCL 2 GM in 0.9 % SODIUM CHLORIDE 100 ML IV ×3 (02:17→17:29)
[2025-01-10 03:42] LABS: Acinetobacter calcoaceticus-ba Not Detected; Bacteroides fragilis Not Detected; Candida auris Not Detected; Candida glabrata Not Detected; Enterobacterales Not Detected; Enterococcus faecalis Not Detected; Enterococcus faecium Not Detected; Klebsiella aerogenes Not Detected; Klebsiella pneumoniae grp Not Detected; Proteus spp. Not Detected; Salmonella spp. Not Detected; Serratia marcescens Not Detected; Staphylococcus epidermidis Not Detected; Staphylococcus lugdunensis Not Detected; Staphylococcus spp. Detected; Stenotrophomonas maltophilia Not Detected; Streptococcus agalactiae(GrpB) Not Detected; Streptococcus pyogenes Group A Not Detected; Streptococcus spp. Not Detected; mecA/C and MREJ (MRSA) Detected
--- NOTE | 2025-01-10 03:54 | PC.NURSE ---
patient is alert and oriented, ambulates in room independently. patient had a temp of 102.9 which responded well to tylenol. patient has complained of soreness and swelling in right wrist, patients arm elevated on pillow. positive blood cultures were reported by lab, hospitalist was made aware. patient remains paced on telemetry. visitor is at bedside. call button is in reach.
[2025-01-10] MEDS: METRONIDAZ/SOD CHL 500 MG/100 ML PIGGYBACK 100 MG IV ×3 (05:03→20:18)
[2025-01-10] MEDS: FLUTICASONE/UMECLIDIN/VILANTER 100/62.5/25MCG INHALER 1 PUFF IH (06:22)
[2025-01-10] MEDS: IPRATROPIUM/ALBUTEROL 3 ML NEB IH ×4 (06:22→23:42)
[2025-01-10 06:59] LABS: Hematocrit 33.2 % (42.0-52.0); Hemoglobin 11.1 g/dL (14.1-18.0); Immature Granulocytes % 0.3 %; Mean Corpuscular HGB Conc 33.4 g/dL (31.8-35.4); Mean Corpuscular Hemoglobin 30.1 pg (27.0-31.2); Mean Corpuscular Volume 90.0 fl (80-94); Nucleated Red Blood Cells % 0 %; Platelet Count 155 K/mm3 (142-424); Red Blood Count 3.69 M/mm3 (4.60-6.20); Red Cell Distribution Width-SD 45.6 fL; White Blood Count 6.3 K/mm3 (4.8-10.8)
[2025-01-10 07:04] LABS: Albumin Level 3.4 g/dl (3.5-5.0); Chloride 104 mmol/L (98-107); Potassium 3.8 mmoL/L (3.5-5.1); Sodium 130 mmol/L (136-145)
[2025-01-10 07:06] LABS: Blood Urea Nitrogen 23 mg/dl (9-20); Creatinine Clearance Estimated 66 mL/min (50-200); Creatinine,Serum 1.50 mg/dl (0.66-1.25); Estimated Glomerular Filt Rate 47 ml/min (>60); GFR (African American) 56 ML/MIN (>60)
[2025-01-10 07:07] LABS: Alanine Aminotransferase 27 U/L (12-78); Albumin/Globulin Ratio 1.1 (1.1-1.8); Alkaline Phosphatase 58 U/L (38-126); Anion Gap 14.8 mEq/L (5-15); Aspartate Amino Transferase 33 U/L (17-59); Bilirubin,Total 0.4 mg/dl (0.2-1.3); Calcium 7.9 mg/dl (8.4-10.2); Carbon Dioxide 15 mmol/L (22.0-30.0); Globulin 3.1 g/dL (1.3-3.2); Glucose 128 mg/dl (74-100); Magnesium 1.8 mg/dl (1.6-2.3); Total Protein,Serum 6.5 g/dl (6.3-8.2)
[2025-01-10 08:33] LABS: Microscopic, Urine URINE MICROSCOPIC (MICROSCOPIC)
[2025-01-10 08:49] LABS: Bilirubin,Urine Negative (Negative); Color,Urine YELLOW (Yellow); Glucose,Urine (UA) TRACE (Negative); Ketones,Urine Negative (Negative); Leukocyte Esterase,Urine Negative (Negative); PH,Urine 6.0 (5.0-8.5); Protein,Urine 1+ (Negative); Specific Gravity, Urine >= 1.030 (1.005-1.030); Urobilinogen,Urine 0.2 EU/dl (0.2)
[2025-01-10] MEDS: CLOPIDOGREL 75MG TAB 75 MG PO (08:57)
[2025-01-10] MEDS: ACETAMINOPHEN 325MG TAB 650 MG PO (08:57)
[2025-01-10] MEDS: APIXABAN 5MG TABLET 5 MG PO ×2 (08:57→20:18)
[2025-01-10] MEDS: RANOLAZINE 500MG ER TABLET 1000 MG PO ×2 (08:57→20:19)
[2025-01-10] MEDS: ASPIRIN EC 81MG TABLET 81 MG PO (08:57)
[2025-01-10 09:01] LABS: WBC,Urine Occasional #/hpf (0-3)
--- NOTE | 2025-01-10 12:06 | CT_ITS ---
PROCEDURE INFORMATION: Exam: CT Right Upper Extremity With Contrast, Wrist Exam date and time: 01/10/2025 12:32 PM Age: 69 years old Clinical indication: Pain; Wrist; Right; Additional info: Pain, joint inflammation? TECHNIQUE: Imaging protocol: Computed tomography of the right upper extremity with contrast. Exam focused on the wrist. Radiation optimization: All CT scans at this facility use at least one of these dose optimization techniques: automated exposure control; mA and/or kV adjustment per patient size (includes targeted exams where dose is matched to clinical indication); or iterative reconstruction. Contrast material: ISOVUE; Contrast volume: 75 ml; Contrast route: IV; COMPARISON: CR XR WRIST RT MIN 3V 01/09/2025 10:54 AM FINDINGS: Bones/joints: Old triquetral fracture. Mild widening of the scapholunate distance. Subchondral cyst cysts in the distal scaphoid. No periosteal reaction. Wrist joint effusion; no areas of abnormal enhancement to suggest underlying inflammatory changes. Soft tissues: Normal. IMPRESSION: 1. Old triquetral fracture. 2. Mild widening of the scapholunate distance suggesting underlying ligamentous laxity or injury. 3. Wrist joint effusion; no areas of abnormal enhancement to suggest underlying inflammatory changes.
[2025-01-10] MEDS: HYDROCODONE/APAP 5/325 MG TABLET 1 TAB PO ×2 (12:14→17:34)
[2025-01-10] MEDS: IOPAMIDOL-370 (76%);100ML BOTTLE 75 ML IV (12:31)
[2025-01-10] MEDS: SODIUM CHLORIDE 0.9% 10ML SYR (RAD ONLY) 10 ML IV (12:31)
[2025-01-10 12:42] LABS: C-Reactive Protein 173.9 mg/L (0-4)
[2025-01-10] MEDS: VANCOMYCIN/WATER FOR INJ (PEG) 1.5 GM/300 ML PIGGYBACK IV (14:15)
--- NOTE | 2025-01-10 14:30 | PC.NURSE ---
Aox 4, up with assistance times one, on RA, 18g L AC SL, CT of right wrist awaiting results, on abx iv, family present.
--- NOTE | 2025-01-10 20:03 | EXP.ACUTE.PN ---
Subjective *Date: 01/10/25 *Time: 22:35 Interval history: Feeling marginally better today but still having significant pain in wrist. Denies nausea or vomiting. Still having cough. Did have fever overnight. Stable on room air. Medical Exam Vital signs and Labs for Last 24 Hours: Vital Signs Temp Pulse Pulse Resp BP Pulse Ox O2 Del Method 01/10/25 18:34 Room Air 01/10/25 18:15 76 01/10/25 18:15 80 01/10/25 18:15 96 Room Air 01/10/25 15:44 98.8 F 58 L 18 129/68 98 Room Air 01/10/25 14:08 Room Air 01/10/25 12:46 64 01/10/25 12:46 67 01/10/25 12:46 96 Room Air 01/10/25 12:00 70 01/10/25 12:00 98.9 F 67 16 124/49 L 96 Room Air 01/10/25 10:08 Room Air 01/10/25 09:00 Room Air 01/10/25 08:00 Room Air 01/10/25 08:00 99.9 F H 52 L 18 139/61 96 Room Air 01/10/25 06:41 Room Air 01/10/25 05:00 Room Air 01/10/25 04:00 100.1 F H 53 L 20 132/62 94 L 01/10/25 04:00 70 01/10/25 03:00 Room Air 01/10/25 02:59 99.7 F H 01/10/25 01:00 Room Air 01/10/25 00:44 66 01/10/25 00:00 60 01/10/25 00:00 99.3 F 60 18 145/57 H 91 L Room Air 01/09/25 23:00 Room Air 01/09/25 21:50 100.4 F H 01/09/25 21:00 Room Air Intake and Output 01/10/25 01/10/25 01/10/25 07:59 15:59 23:59 Intake Total 440 / 1780 660 / 1780 680 / 1780 Output Total 0 / 775 525 / 775 250 / 775 Balance 440 / 1005 135 / 1005 430 / 1005 Intake: Intake, Oral Amount 240 / 980 460 / 980 280 / 980 Intake, Total IV Amount 200 / 800 200 / 800 400 / 800 Cefepime HCl 2 gm In 0.9 % 100 / 100 Sodium Chloride 100 ml @ 200 mls/hr IV Q12H [facility] Rx#:[id number] Cefepime HCl 2 gm In 0.9 % 100 / 200 100 / 200 Sodium Chloride 100 ml @ 200 mls/hr IV Q8H [facility] Rx#:[id number] Metronidaz/Sod Chl 500 mg In 100 / 200 100 / 200 100 ml @ 100 mls/hr IV Q8H [facility] Rx#:[id number] Vancomycin/Water For Inj (Peg) 300 / 300 1.5 gm In 300 ml @ 150 mls/hr IV Q24H [facility] Rx#:[id number] Output: Output, Urine Amount 0 / 775 525 / 775 250 / 775 Other: Number of Unmeasured Voids 1 0 0 Number of Bowel Movements 1 Weight 97.613 kg Patient Weight 01/10/25 23:59 Weight 97.613 kg Laboratory Results - last 24 hr 01/09/25 10:36: A. baumannii (PCR) Not detected, Bacteroides fragilis Not detected, Chela albicans (PCR) Not detected, Chela auris (PCR) Not detected, C. glabrata (PCR) Not detected, C. krusei (PCR) Not detected, C. parapsilosis (PCR) Not detected, C. tropicalis (PCR) Not detected, Cryptococcus neoformans PCR Not detected, Enterobacterales (PCR) Not detected, Enterococc faecalis PCR Not detected, Enterococc faecium PCR Not detected, E. coli (PCR) Not detected, H. influenzae DNA Not detected, Klebsiella aerogenes (PCR) Not detected, Klebsiella oxytoca PCR Not detected, K. pneumoniae group (PCR) Not detected, List. monocytogenes PCR Not detected, N. meningitidis (PCR) Not detected, Proteus species (PCR) Not detected, Salmonella spp. (PCR) Not detected, Serratia marcescens PCR Not detected, Staphylococcus sp PCR Detected A, Staph aureus (PCR) Detected A, mecA/C & MREJ Resist Gene Detected A, mecA/C-Methicil Resis Gene Not applicable, Staph epidermidis (PCR) Not detected, Staph lugdunensis (TEM-PCR) Not detected, S. maltophilia (PCR) Not detected, Streptococcus sp PCR Not detected, S.agalactiae Grp B LIZZY Not detected, Strep pneumoniae (PCR) Not detected, S. pyogenes GrpA LIZZY Not detected, P. aeruginosa (PCR) Not detected, [place]/B-Vanco Res Genes Not applicable, blaIMP Car res Gene PCR Not applicable, KPC-Carbap Res Gene PCR Not applicable, blaNDM Car Res Gene PCR Not applicable, OXA-48 Carbapenem Resis Gene (PCR) Not applicable, blaVIM Car Res Gene PCR Not applicable, CTX-M Gene Resistance (PCR) Not applicable, MCR-1 Resistance Gene Not applicable 01/09/25 11:19: A. baumannii (PCR) Not detected, Bacteroides fragilis Not detected, Chela albicans (PCR) Not detected, Chela auris (PCR) Not detected, C. glabrata (PCR) Not detected, C. krusei (PCR) Not detected, C. parapsilosis (PCR) Not detected, C. tropicalis (PCR) Not detected, Cryptococcus neoformans PCR Not detected, Enterobacterales (PCR) Not detected, Enterococc faecalis PCR Not detected, Enterococc faecium PCR Not detected, E. coli (PCR) Not detected, H. influenzae DNA Not detected, Klebsiella aerogenes (PCR) Not detected, Klebsiella oxytoca PCR Not detected, K. pneumoniae group (PCR) Not detected, List. monocytogenes PCR Not detected, N. meningitidis (PCR) Not detected, Proteus species (PCR) Not detected, Salmonella spp. (PCR) Not detected, Serratia marcescens PCR Not detected, Staphylococcus sp PCR Detected A, Staph aureus (PCR) Detected A, mecA/C & MREJ Resist Gene Detected A, mecA/C-Methicil Resis Gene Not applicable, Staph epidermidis (PCR) Not detected, Staph lugdunensis (TEM-PCR) Not detected, S. maltophilia (PCR) Not detected, Streptococcus sp PCR Not detected, S.agalactiae Grp B LIZZY Not detected, Strep pneumoniae (PCR) Not detected, S. pyogenes GrpA LIZZY Not detected, P. aeruginosa (PCR) Not detected, [place]/B-Vanco Res Genes Not applicable, blaIMP Car res Gene PCR Not applicable, KPC-Carbap Res Gene PCR Not applicable, blaNDM Car Res Gene PCR Not applicable, OXA-48 Carbapenem Resis Gene (PCR) Not applicable, blaVIM Car Res Gene PCR Not applicable, CTX-M Gene Resistance (PCR) Not applicable, MCR-1 Resistance Gene Not applicable 01/10/25 06:38: WBC 6.3, RBC 3.69 L, Hgb 11.1 L, Hct 33.2 L, MCV 90.0, MCH 30.1, MCHC 33.4, RDW 13.8, Plt Count 155, MPV 9.0, Neut % (Auto) 77.1, Lymph % (Auto) 15.8, [place] % (Auto) 6.4, Eos % (Auto) 0.2, Baso % (Auto) 0.2, Neut # (Auto) 4.8, Lymph # (Auto) 1.0, [place] # (Auto) 0.4, Eos # (Auto) 0.0, Baso # (Auto) 0.0, Sodium 130 L, Potassium 3.8, Chloride 104, Carbon Dioxide 15 L, Anion Gap 14.8, BUN 23 H, Creatinine 1.50 H D, Estimated Creat Clear 66, Estimated GFR 47 L, Est GFR ( Amer) 56 L D, Glucose 128 H, Calcium 7.9 L, Magnesium 1.8 D, Total Bilirubin 0.4, AST 33, ALT 27, Alkaline Phosphatase 58, Total Protein 6.5, Albumin 3.4 L D, Globulin 3.1, Albumin/Globulin Ratio 1.1 01/10/25 08:23: Urine Color Yellow, Urine Appearance Clear, Urine pH 6.0, Ur Specific [place] >= 1.030, Urine Protein 1+ A, Urine Glucose (UA) Trace, Urine Ketones Negative, Urine Blood Trace-i, Urine Nitrate Negative, Urine Bilirubin Negative, Urine Urobilinogen 0.2, Ur Leukocyte Esterase Negative, Urine RBC 5-10, Urine WBC Occasional, Ur Squamous Epith Cells 3-5 01/10/25 12:19: ESR 99 H, C-Reactive Protein 173.9 H I & O for Labs for Last 24 Hours: Intake & Output 01/07/25 01/08/25 01/09/25 01/10/25 23:59 23:59 23:59 23:59 Intake Total 1410 / 1650 1780 / 1780 Output Total 0 / 0 775 / 775 Balance 1410 / 1650 1005 / 1005 Weight 97.613 kg 97.613 kg Microbiology Reports for the Last 24 Hours: Microbiology 01/09/25 11:19 Blood Blood Culture - Preliminary 01/09/25 10:36 Blood Blood Culture - Preliminary Constitutional: Present mild distress, obese, chronically ill appearing and cooperative Head: Present atraumatic Eyes: Present as per HPI ENT: Present normal exam Neck: Present normal inspection Respiratory: Present prolonged expiratory phase, wheezes (Minimal), normal respiratory effort and symmetric chest movement; Absent crackles Cardiac: Present Regular Rate Comment:: Atrial fibrillation with PVCs GI: Present soft and normal bowel sounds; Absent distention or tenderness Rectal (male): Present deferred (male): Present deferred Extremities: Present normal inspection and normal capillary refill; Absent edema Comment:: Right wrist tender to palpation, especially on dorsum. Pain with flexion and extension. No significant swelling. No warmer than left wrist Skin: Present intact and dry; Absent erythema or rash Neuro: Present Grossly Intact, alert, awake and oriented x 3 Assessment and Plan *Assessment and plan (1) Pneumonia: Status: Acute Category: Medical Code(s): J18.9 - Pneumonia, unspecified organism (2) Severe sepsis: Status: Acute Category: Medical Code(s): A41.9 - Sepsis, unspecified organism; R65.20 - Severe sepsis without septic shock (3) JANAK (acute kidney injury): Status: Acute Category: Medical Code(s): N17.9 - Acute kidney failure, unspecified (4) Unstable angina: Status: Acute Category: Medical Code(s): I20.0 - Unstable angina (5) HFrEF (heart failure with reduced ejection fraction): Status: Acute Category: Medical Code(s): I50.20 - Unspecified systolic (congestive) heart failure (6) COPD (chronic obstructive pulmonary disease): Status: Chronic Qualifiers: COPD type: emphysema Emphysema type: other Qualified Code(s): J43.8 - Other emphysema Category: Medical Code(s): J44.9 - Chronic obstructive pulmonary disease, unspecified (7) Tobacco dependence syndrome: Status: Chronic Category: Medical Code(s): F17.200 - Nicotine dependence, unspecified, uncomplicated (8) CAD (coronary artery disease): Status: Chronic Qualifiers: Coronary Disease-Associated Artery/Lesion type: [place] artery [place] vs. transplanted heart: [place] heart Associated angina: with stable angina Qualified Code(s): I25.118 - Atherosclerotic heart disease of [place] coronary artery with other forms of angina pectoris Category: Medical Code(s): I25.10 - Atherosclerotic heart disease of [place] coronary artery without angina pectoris (9) Essential hypertension: Status: Chronic Category: Medical Code(s): I10 - Essential (primary) hypertension (10) HLD (hyperlipidemia): Status: Chronic Qualifiers: Hyperlipidemia type: mixed hyperlipidemia Qualified Code(s): E78.2 - Mixed hyperlipidemia Category: Medical Code(s): E78.5 - Hyperlipidemia, unspecified (11) PAD (peripheral artery disease): Status: Chronic Category: Medical Code(s): I73.9 - Peripheral vascular disease, unspecified (12) PAF (paroxysmal atrial fibrillation): Status: Acute Category: Medical Code(s): I48.0 - Paroxysmal atrial fibrillation (13) Generalized weakness: Status: Acute Category: Medical Code(s): R53.1 - Weakness (14) Right wrist pain: Status: Acute Category: Medical Code(s): M25.531 - Pain in right wrist Plan Mr. Thurman is a 69-year-old male with recent admission for A-fib RVR and unstable angina, underwent left heart cath and received multiple stents on 12/31/2024. Was discharged home a week ago. Presents back to the ER with weakness, fever, chills and cough. History significant for A-fib, SVT, HFrEF, LHC with JEANNE, GERD, COPD, obesity, tobacco dependence, PAD, CAD, and pacemaker. Workup in the ER concerning for pneumonia, sepsis, JANAK. Discussed case with ER physician, request admission for further management of his sepsis. I decided to admit to [facility] for further care. Continue broad-spectrum antibiotics with cefepime, Flagyl, vancomycin. Cardiology to evaluate in the morning. Will obtain imaging of right wrist today. Blood cultures positive overnight for staph. Repeat blood cultures today. Problems addressed as follows: Severe sepsis secondary to staph bacteremia JANAK Pneumonia - Meeting sepsis criteria with tachycardia, tachypnea with respiratory rate 25, pneumonia on chest imaging. Has organ dysfunction with JANAK. Necessitating inpatient management. - PSI/Port score of 77, class III risk. - Per my review of chest x-ray, has some patchy opacification in the right lung base. Given his cough, neutrophil predominant white count, and fever, clinically significant and consistent with pneumonia - Continue vancomycin, cefepime, Flagyl for broad coverage given recent hospitalization - Blood cultures positive for Staph aureus. Awaiting further speciation and sensitivity - Repeat blood cultures obtained today - White counts presently remains normal at 6.3. - Will attempt to obtain sputum culture - DuoNebs every 6 hours scheduled - Added CRP and ESR #Atrial fibrillation, recent onset NSTEMI, type II ? Rate controlled at this time. Continue Eliquis 5 mg twice daily, metoprolol succinate 100 mg nightly. - EKG ordered and pending to monitor for sinus versus A-fib - Continue to monitor on telemetry, consider cardiology consult Saturday ? Recent manipulation but also the stress of pneumonia with JANAK, troponin elevated at 0.06, BNP elevated at 1700 Right wrist pain: Present since heart cath. Tender on dorsum of wrist. No significant edema and not warmer than left wrist. Given pain and his bacteremia however we will obtain CT of wrist with contrast to evaluate for effusion, arthritis, trauma. Consider Ortho consult pending results #CAD Heart failure with reduced ejection fraction, EF 40% ? Left heart cath performed 12/31/2024. Patient received 3 contiguous stents to the RCA. - Recently started on GDMT. Will hold Aldactone and olmesartan in the setting of JANAK and soft blood pressures/sepsis. Continue metoprolol succinate. Continue aspirin 81 mg daily, Plavix 75 mg daily, ranolazine at 1000 mg twice daily. - Echo obtained 2 weeks ago shows mild to moderate reduced LV, 40%. Severe hypokinesis of the distal and apical LV burgess. No valvular stenosis or regurgitation noted. ?Patient has dual-chamber ICD in place #Tobacco use disorder #COPD ? Patient states he is a daily smoker approximately 1 PPD. Discussed smoking cessation. Patient chest CTA is notable for cluster of less than 5 mm in size nodule in the posterior right upper lobe (favor postinfectious or inflammatory). - Continue Trelegy inhaler daily - Incentive spirometry - DuoNebs every 6 hours scheduled #Hyperlipidemia #Hypertension ? Patient elevated LDL, 112 2 weeks ago. Known history to Crestor with myalgias. Reevaluate injectable treatment as an outpatient - Blood pressure soft, meds as above #Mood disorder: Continue Wellbutrin 150 mg daily. Full code Eliquis Cardiac diet
[2025-01-10] MEDS: METOPROLOL SUCCINATE XL 100MG TABLET 100 MG PO (20:18)
[2025-01-11] VITALS (11 sets, daily range): BP systolic 117–161; BP diastolic 57–71; PULSE 58–102; RESP 12–18; TEMP 36.4–37; O2SAT 94–98; BMI 34.8
--- NOTE | 2025-01-11 | CA_ITS ---
FINAL REPORT CLINICAL HISTORY: Pt had a heart cath 12/31/24 with 3 stents. Pt started having wrist pain and edema in the right wrist joint FINDINGS: Spectral and Doppler waveform evaluations of the right wrist was performed. Spectral analysis was performed. No evidence of pseudoaneurysm. IMPRESSION: Unremarkable exam. Reviewed, Interpreted and Dictated by Nancy Salas MD Transcribed by Evelin Cameron Authenticated and [facility]
[2025-01-11] MEDS: HYDROCODONE/APAP 5/325 MG TABLET 1 TAB PO ×3 (00:38→20:25)
[2025-01-11] MEDS: CEFEPIME HCL 2 GM in 0.9 % SODIUM CHLORIDE 100 ML IV ×3 (01:48→18:03)
[2025-01-11] MEDS: MELATONIN 5MG TABLET 5 MG PO ×2 (01:49→22:28)
[2025-01-11 03:55] LABS: Acinetobacter calcoaceticus-ba Not Detected; Bacteroides fragilis Not Detected; Candida auris Not Detected; Candida glabrata Not Detected; Enterobacterales Not Detected; Enterococcus faecalis Not Detected; Enterococcus faecium Not Detected; Klebsiella aerogenes Not Detected; Klebsiella pneumoniae grp Not Detected; Proteus spp. Not Detected; Salmonella spp. Not Detected; Serratia marcescens Not Detected; Staphylococcus epidermidis Not Detected; Staphylococcus lugdunensis Not Detected; Staphylococcus spp. Detected; Stenotrophomonas maltophilia Not Detected; Streptococcus agalactiae(GrpB) Not Detected; Streptococcus pyogenes Group A Not Detected; Streptococcus spp. Not Detected; mecA/C and MREJ (MRSA) Detected
--- NOTE | 2025-01-11 04:22 | PC.NURSE ---
Pt AOx4, pleasant. Has reported some pain with relief from prn medications given per MAR. Receiving IV abx. Tolerating room air. Currently resting in bed with eyes closed. Respirations even and unlabored. Bed is low, locked, and call light is in reach.
[2025-01-11] MEDS: METRONIDAZ/SOD CHL 500 MG/100 ML PIGGYBACK 100 MG IV (04:31)
[2025-01-11 04:50] LABS: Acinetobacter calcoaceticus-ba Not Detected; Bacteroides fragilis Not Detected; Candida auris Not Detected; Candida glabrata Not Detected; Enterobacterales Not Detected; Enterococcus faecalis Not Detected; Enterococcus faecium Not Detected; Klebsiella aerogenes Not Detected; Klebsiella pneumoniae grp Not Detected; Proteus spp. Not Detected; Salmonella spp. Not Detected; Serratia marcescens Not Detected; Staphylococcus epidermidis Not Detected; Staphylococcus lugdunensis Not Detected; Staphylococcus spp. Detected; Stenotrophomonas maltophilia Not Detected; Streptococcus agalactiae(GrpB) Not Detected; Streptococcus pyogenes Group A Not Detected; Streptococcus spp. Not Detected; mecA/C and MREJ (MRSA) Detected
[2025-01-11] MEDS: IPRATROPIUM/ALBUTEROL 3 ML NEB IH ×4 (05:59→23:56)
[2025-01-11] MEDS: FLUTICASONE/UMECLIDIN/VILANTER 100/62.5/25MCG INHALER 1 PUFF IH (05:59)
[2025-01-11 06:34] LABS: Hematocrit 29.8 % (42.0-52.0); Immature Granulocytes % 0.2 %; Mean Corpuscular HGB Conc 32.9 g/dL (31.8-35.4); Mean Corpuscular Hemoglobin 29.6 pg (27.0-31.2); Mean Corpuscular Volume 90.0 fl (80-94); Nucleated Red Blood Cells % 0 %; Platelet Count 140 K/mm3 (142-424); Red Blood Count 3.31 M/mm3 (4.60-6.20); Red Cell Distribution Width-SD 45.6 fL; White Blood Count 4.5 K/mm3 (4.8-10.8)
[2025-01-11 06:38] LABS: Albumin Level 3.0 g/dl (3.5-5.0); Chloride 106 mmol/L (98-107); Potassium 3.8 mmoL/L (3.5-5.1); Sodium 132 mmol/L (136-145)
[2025-01-11 06:41] LABS: Alanine Aminotransferase 40 U/L (12-78); Albumin/Globulin Ratio 1.0 (1.1-1.8); Alkaline Phosphatase 56 U/L (38-126); Anion Gap 9.8 mEq/L (5-15); Aspartate Amino Transferase 46 U/L (17-59); Bilirubin,Total 0.3 mg/dl (0.2-1.3); Blood Urea Nitrogen 22 mg/dl (9-20); Calcium 7.7 mg/dl (8.4-10.2); Carbon Dioxide 20 mmol/L (22.0-30.0); Creatinine Clearance Estimated 88 mL/min (50-200); Creatinine,Serum 1.20 mg/dl (0.66-1.25); Estimated Glomerular Filt Rate 60 ml/min (>60); GFR (African American) 73 ML/MIN (>60); Globulin 2.9 g/dL (1.3-3.2); Glucose 105 mg/dl (74-100); Total Protein,Serum 5.9 g/dl (6.3-8.2)
[2025-01-11 06:42] LABS: Magnesium 1.8 mg/dl (1.6-2.3)
[2025-01-11 07:08] LABS: Hemoglobin 10.0 g/dL (14.1-18.0)
[2025-01-11 07:14] LABS: C-Reactive Protein 123.0 mg/L (0-4)
[2025-01-11] MEDS: ASPIRIN EC 81MG TABLET 81 MG PO (08:41)
[2025-01-11] MEDS: RANOLAZINE 500MG ER TABLET 1000 MG PO ×2 (08:41→20:24)
[2025-01-11] MEDS: APIXABAN 5MG TABLET 5 MG PO ×2 (08:42→20:24)
[2025-01-11] MEDS: CLOPIDOGREL 75MG TAB 75 MG PO (08:42)
--- NOTE | 2025-01-11 09:13 | EXP.ORTH.CON ---
History of Present Illness *Admission Date: 01/09/25 *Reason for visit:: Question of septic R wrist *History of present illness: Patient is s/p heart cath 01/01/25, with syncopal episode with fall on 01/08/25, not sure if he landed on wrist. States wrist has been stiff and painful since fall, may be slightly better since antibiotics started, but still very painful to move. Pain is localized to the wrist without radiation. [facility] Disclaimer: The information contained in this section may have been updated after the patient was seen, as this information can be updated by other users. Medical History Dizziness Crescendo angina Atypical angina SVT (supraventricular tachycardia) HFrEF (heart failure with reduced ejection fraction) Ventricular tachycardia Impotence Typical angina NYHA Class III cardiovascular function Post-operative complication Gynecomastia HHD (hypertensive heart disease) HLD (hyperlipidemia) CAD (coronary artery disease) Multiple nodules of lung Diastolic heart failure Obesity PAD (peripheral artery disease) Essential hypertension COPD (chronic obstructive pulmonary disease) GERD (gastroesophageal reflux disease) PVC (premature ventricular contraction) Systolic heart failure Tobacco dependence syndrome Surgical History Status post cardiac catheterization History of endarterectomy Family History Other No significant family history Social History Smoking Status: Current every day smoker tobacco type: cigarettes packs per day: 1 alcohol intake: never substance use type: denies use current occupational status: unemployed and retired Travel in the last 8 weeks?: Inside the [place] household members: significant other housing: house current occupational exposures/hazards: No caffeine: Yes Have you lived/traveled outside [place] in past 30 days?: No Contact w/someone who lives/traveled outside [place] past 30 days?: No Exposure to someone with infectious disease in past 14 days?: No Do you have a fever (greater than 100.4 F or 38 C)?: No Have you tested positive for COVID-19?: No Exposed to someone with COVID-19 in past 14 days?: No Do you have a sore throat?: No Do you have a cough?: No Do you have any weakness?: No Do you have any diarrhea?: No Are you experiencing any unusual bleeding?: No Do you have any muscle aches/pain?: No Do you have any abdominal pain?: No Are you experiencing loss of taste or smell?: No Meds Home Medications and Allergies Home Medications ?Medication ?Instructions ?Recorded ?Confirmed ?Type aspirin 81 mg tablet,delayed 81 mg PO DAILY 04/10/17 01/09/25 History release (Adult Low Dose Aspirin) bupropion HCl 150 mg tablet,12 hr 150 mg PO DAILY 04/10/17 01/09/25 History sustained-release fluticasone fur. 100 mcg-umeclid 1 inh inhalation DAILY 10/19/21 01/09/25 History 62.5 mcg-vilant 25 mcg inhalat.powder (Trelegy Ellipta) nitroglycerin 0.4 mg sublingual 0.4 mg sublingual Q5MINP PRN chest 09/17/23 01/09/25 History tablet (Nitrostat) pain olmesartan 40 mg tablet 40 mg PO DAILY 09/17/23 01/09/25 History ranolazine 1,000 mg 1,000 mg PO BID 12/29/24 01/09/25 History tablet,extended release,12 hr apixaban 5 mg tablet (Eliquis) 5 mg PO BID #60 tabs 12/30/24 01/09/25 Rx clopidogrel 75 mg tablet 75 mg PO DAILY 30 days #30 tabs 12/30/24 01/09/25 Rx metoprolol succinate 100 mg 100 mg PO HS 30 days #30 tabs 12/30/24 01/09/25 Rx tablet,extended release 24 hr New Prescriptions to Start Prescriptions: Allergies Allergy/AdvReac Type Severity Reaction Status Date / Time rosuvastatin (From Crestor) Allergy Mild Back Pain Verified 12/31/24 00:11 Ortho Exam (Inpt) Vital signs and Labs for Last 24 Hours: Temp Pulse Resp BP Pulse Ox O2 Del Method O2 Flow Rate 98.1 F 60 18 122/57 L 96 Room Air 2 01/11/25 08:00 01/11/25 08:00 01/11/25 08:00 01/11/25 08:00 01/11/25 08:00 01/11/25 08:00 01/09/25 12:00 Laboratory Results - last 24 hr 10/19/25 07:55: A. baumannii (PCR) Not detected, Bacteroides fragilis Not detected, Chela albicans (PCR) Not detected, Chela auris (PCR) Not detected, C. glabrata (PCR) Not detected, C. krusei (PCR) Not detected, C. parapsilosis (PCR) Not detected, C. tropicalis (PCR) Not detected, Cryptococcus neoformans PCR Not detected, Enterobacterales (PCR) Not detected, Enterococc faecalis PCR Not detected, Enterococc faecium PCR Not detected, E. coli (PCR) Not detected, H. influenzae DNA Not detected, Klebsiella aerogenes (PCR) Not detected, Klebsiella oxytoca PCR Not detected, K. pneumoniae group (PCR) Not detected, List. monocytogenes PCR Not detected, N. meningitidis (PCR) Not detected, Proteus species (PCR) Not detected, Salmonella spp. (PCR) Not detected, Serratia marcescens PCR Not detected, Staphylococcus sp PCR Detected A, Staph aureus (PCR) Detected A, mecA/C & MREJ Resist Gene Detected A, mecA/C-Methicil Resis Gene Not applicable, Staph epidermidis (PCR) Not detected, Staph lugdunensis (TEM-PCR) Not detected, S. maltophilia (PCR) Not detected, Streptococcus sp PCR Not detected, S.agalactiae Grp B LIZZY Not detected, Strep pneumoniae (PCR) Not detected, S. pyogenes GrpA LIZZY Not detected, P. aeruginosa (PCR) Not detected, Abimbola/B-Vanco Res Genes Not applicable, blaIMP Car res Gene PCR Not applicable, KPC-Carbap Res Gene PCR Not applicable, blaNDM Car Res Gene PCR Not applicable, OXA-48 Carbapenem Resis Gene (PCR) Not applicable, blaVIM Car Res Gene PCR Not applicable, CTX-M Gene Resistance (PCR) Not applicable, MCR-1 Resistance Gene Not applicable 01/10/25 08:00: A. baumannii (PCR) Not detected, Bacteroides fragilis Not detected, Chela albicans (PCR) Not detected, Chela auris (PCR) Not detected, C. glabrata (PCR) Not detected, C. krusei (PCR) Not detected, C. parapsilosis (PCR) Not detected, C. tropicalis (PCR) Not detected, Cryptococcus neoformans PCR Not detected, Enterobacterales (PCR) Not detected, Enterococc faecalis PCR Not detected, Enterococc faecium PCR Not detected, E. coli (PCR) Not detected, H. influenzae DNA Not detected, Klebsiella aerogenes (PCR) Not detected, Klebsiella oxytoca PCR Not detected, K. pneumoniae group (PCR) Not detected, List. monocytogenes PCR Not detected, N. meningitidis (PCR) Not detected, Proteus species (PCR) Not detected, Salmonella spp. (PCR) Not detected, Serratia marcescens PCR Not detected, Staphylococcus sp PCR Detected A, Staph aureus (PCR) Detected A, mecA/C & MREJ Resist Gene Detected A, mecA/C-Methicil Resis Gene Not applicable, Staph epidermidis (PCR) Not detected, Staph lugdunensis (TEM-PCR) Not detected, S. maltophilia (PCR) Not detected, Streptococcus sp PCR Not detected, S.agalactiae Grp B LIZZY Not detected, Strep pneumoniae (PCR) Not detected, S. pyogenes GrpA LIZZY Not detected, P. aeruginosa (PCR) Not detected, Abimbola/B-Vanco Res Genes Not applicable, blaIMP Car res Gene PCR Not applicable, KPC-Carbap Res Gene PCR Not applicable, blaNDM Car Res Gene PCR Not applicable, OXA-48 Carbapenem Resis Gene (PCR) Not applicable, blaVIM Car Res Gene PCR Not applicable, CTX-M Gene Resistance (PCR) Not applicable, MCR-1 Resistance Gene Not applicable 01/10/25 08:23: Urine Color Yellow, Urine Appearance Clear, Urine pH 6.0, Ur Specific [place] >= 1.030, Urine Protein 1+ A, Urine Glucose (UA) Trace, Urine Ketones Negative, Urine Blood Trace-i, Urine Nitrate Negative, Urine Bilirubin Negative, Urine Urobilinogen 0.2, Ur Leukocyte Esterase Negative, Urine RBC 5-10, Urine WBC Occasional, Ur Squamous Epith Cells 3-5 01/10/25 12:19: ESR 99 H, C-Reactive Protein 173.9 H 01/11/25 05:55: WBC 4.5 L D, RBC 3.31 L, Hgb 10.0 L, Hct 29.8 L, MCV 90.0, MCH 29.6, MCHC 32.9, RDW 13.8, Plt Count 140 L, MPV 9.0, Neut % (Auto) 57.9, Lymph % (Auto) 24.9, Hopkins % (Auto) 13.7 H, Eos % (Auto) 3.3, Baso % (Auto) 0.0 L, Neut # (Auto) 2.6, Lymph # (Auto) 1.1, Hopkins # (Auto) 0.6, Eos # (Auto) 0.2, Baso # (Auto) 0.0, Sodium 132 L, Potassium 3.8, Chloride 106, Carbon Dioxide 20 L, Anion Gap 9.8, BUN 22 H, Creatinine 1.20, Estimated Creat Clear 88, Estimated GFR 60, Est GFR ( Amer) 73 D, Glucose 105 H, Calcium 7.7 L, Magnesium 1.8, Total Bilirubin 0.3, AST 46 D, ALT 40 D, Alkaline Phosphatase 56, C-Reactive Protein 123.0 H, Total Protein 5.9 L, Albumin 3.0 L D, Globulin 2.9, Albumin/Globulin Ratio 1.0 L I & O for Labs for Last 24 Hours: Intake & Output 01/08/25 01/09/25 01/10/25 01/11/25 23:59 23:59 23:59 23:59 Intake Total 1410 / 1650 1880 / 1880 1000 / 1000 Output Total 0 / 0 775 / 775 250 / 250 Balance 1410 / 1650 1105 / 1105 750 / 750 Weight 97.613 kg 97.613 kg 104.236 kg Microbiology Reports for the Last 24 Hours: Microbiology 01/09/25 11:19 Blood Blood Culture - Preliminary Gram Positive Cocci 01/09/25 10:36 Blood Blood Culture - Preliminary Gram Positive Cocci 01/10/25 07:55 Blood Blood Culture - Preliminary 01/10/25 08:00 Blood Blood Culture - Preliminary Additional findings:: R wrist: + diffuse edema, mild erythema, no ecchymosis, area of fluctuance appreciated. PROM wrist nonpainful. NonTTP over radiocarpal joint line. CT scan done 01/10/25 of the R wrist shows no acute bony abnormality, but there is a noted effusion with mild Scapholunate widening and chronic triquestral fracture. Results Labs 01/11/25 05:55 01/11/25 05:55 Labs: Abnormal lab results 01/10/25 01/10/25 01/10/25 Range/Units 07:55 08:00 08:23 WBC (4.8-10.8) K/mm3 RBC (4.60-6.20) M/mm3 Hgb (14.1-18.0) g/dL Hct (42.0-52.0) % Plt Count (142-424) K/mm3 Hopkins % (Auto) (1.7-9.3) % Baso % (Auto) (0.1-2.0) % ESR (0-20) mm/hr Sodium (136-145) mmol/L Carbon Dioxide (22.0-30.0) mmol/L BUN (9-20) mg/dl Glucose (74-100) mg/dl Calcium (8.4-10.2) mg/dl C-Reactive Protein (0-4) mg/L Total Protein (6.3-8.2) g/dl Albumin (3.5-5.0) g/dl Albumin/Globulin Ratio (1.1-1.8) Urine Protein 1+ A (Negative) Staphylococcus sp PCR Detected A Detected A Staph aureus (PCR) Detected A Detected A mecA/C & MREJ Resist Gene Detected A Detected A 01/10/25 01/11/25 Range/Units 12:19 05:55 WBC 4.5 L D (4.8-10.8) K/mm3 RBC 3.31 L (4.60-6.20) M/mm3 Hgb 10.0 L (14.1-18.0) g/dL Hct 29.8 L (42.0-52.0) % Plt Count 140 L (142-424) K/mm3 Hopkins % (Auto) 13.7 H (1.7-9.3) % Baso % (Auto) 0.0 L (0.1-2.0) % ESR 99 H (0-20) mm/hr Sodium 132 L (136-145) mmol/L Carbon Dioxide 20 L (22.0-30.0) mmol/L BUN 22 H (9-20) mg/dl Glucose 105 H (74-100) mg/dl Calcium 7.7 L (8.4-10.2) mg/dl C-Reactive Protein 173.9 H 123.0 H (0-4) mg/L Total Protein 5.9 L (6.3-8.2) g/dl Albumin 3.0 L D (3.5-5.0) g/dl Albumin/Globulin Ratio 1.0 L (1.1-1.8) Urine Protein (Negative) Staphylococcus sp PCR Staph aureus (PCR) mecA/C & MREJ Resist Gene H & H 01/09/25 01/10/25 01/11/25 Range/Units 10:36 06:38 05:55 Hgb 12.1 L 11.1 L 10.0 L (14.1-18.0) g/dL Hct 36.7 L 33.2 L 29.8 L (42.0-52.0) % All other labs normal. Assessment and Plan *Assessment and plan (1) Right wrist pain: Status: Acute Category: Medical Code(s): M25.531 - Pain in right wrist Plan Plan was discussed with Dr. Guan, with recommendations as follows: 1. WBAT to RUE, may use wrist brace PRN pain 2. Pain control 3. Ice/heat PRN pain. 4. Continue abx. 5. MRI contraindicated due to AICD. 6. Currently no surgical indication. Continue to monitor for signs of worsening symptoms and CRP improvement.
--- NOTE | 2025-01-11 09:26 | HMH.PTEV ---
Physical Therapy Evaluation Rehab PT IP Evaluation Start: 01/09/25 15:32 Freq: ONCE Status: Active Protocol: Document 01/11/25 09:22 SAMEERA (Rec: 01/11/25 09:26 SAMEERA [id number]) Subjective/History History History Per H&P: Mr. Thurman is a 69-year-old male with history of heart failure with reduced ejection fraction , new diagnosis of A-fib, AICD, COPD, tobacco dependence, hyperlipidemia, hypertension, and recent left heart cath on 12/31 with placement of 3 stents. He presented to the ER today with episode of of syncope yesterday and further weakness and fatigue today. Has had increased cough, shortness of breath, body aches and subjective fevers at home. Presented yesterday due to a syncopal episode but workup in the ER was remarkable for low blood pressure that responded to IV fluids. Diuretics were held and symptoms progressed last night which led him to the ER at [facility]. On arrival to the ER, patient had fever 102.5. White count of 8.2 . Chest imaging showing pneumonia. Troponin detectable at 0.06 with elevated BNP at 1700. Medicine consulted for admission and further management of symptoms consistent with sepsis and pneumonia. Subjective Subjective Pt reports he lives with his son-in-law. Pt lives in a SS house with 3 MORAIMA and one HR. Pt normally IND with all mobility without AD use. No falls reported in past 30 days (beside syncope episode). New diagnosis of No cancer in past 12 months? [facility] How much help from another person do you currently need... Turning from your None back to your side while in a flat bed without using bedrails? Moving from lying on None back to sitting on the side of a flat bed without using bedrails? Moving to and from a None bed to a chair ( including a wheelchair)? Standing up from a None chair using your arms? (e.g., wheelchair, bedside chair) Walking in hospital None room? Climbing 3-5 steps A little with a railing? Mobility Score 23 Mobility Level Johnson Pate Mobility 7 Walk 25 feet or more Mobility Calculator Rehab PT IP Eval Objective Appearance Patient Behavior Appropriate,Cooperative Patient Orientation Person,Place Difficulty following none instructions Speech Pattern Clear Ambulation Patient Able to Yes Ambulate Ambulation Observation IP General Gait No Deviations/Normal Pattern Observation Ambulation Distance 25 (feet) Ambulation Assistive None Device Ambulation Ability Independent Balance Sitting Balance Steady, safe Standing Balance Steady, wide stance Dynamic Sitting Good Balance Ability Dynamic Standing Good Balance Ability Transfers Bed Transfer Ability Independent Chair Transfer Independent Ability Sit to Stand Bed Independent Transfer Ability Rehab PT IP prob,goals,plan Problems Date of Evaluation: 01/11/25 Rehab Potential Rehab Potential Innapropriate for Skilled Therapy Discharge Plan PT Discharge Plan Pt appears to be at his baseline in mobility (IND) and would not benefit from skilled acute care PT at this time. Eval Complexity Eval Charge Codes 07037 - Moderate Complexity PHYSICIAN CERTIFICATION: I certify the specified therapy services for Solomon Thurman are required, authorized, and reviewed every 30 days.
--- NOTE | 2025-01-11 11:04 | EXP.CARD.CON ---
History of Present Illness History of Present Illness Consult date: 01/11/25 Requesting physician: Rudi Westfall Chief complaint: Weakness, soa and cough History of present illness: Hospitalist note: Mr. Thurman is a 69-year-old male with history of heart failure with reduced ejection fraction, History of A-fib, AICD, COPD, tobacco dependence, hyperlipidemia, hypertension, and recent left heart cath on 12/31 with placement of 3 stents. He presented to the ER today with episode of of syncope yesterday and further weakness and fatigue today. Has had increased cough, shortness of breath, body aches and subjective fevers at home. Presented yesterday due to a syncopal episode but workup in the ER was remarkable for low blood pressure that responded to IV fluids. Diuretics were held and symptoms progressed last night which led him to the ER at [facility]. On arrival to the ER, patient had fever 102.5. White count of 8.2. Chest imaging showing pneumonia. Troponin detectable at 0.06 with elevated BNP at 1700. Medicine consulted for admission and further management of symptoms consistent with sepsis and pneumonia. Cardiology note: Cardiology was asked to evaluate patient due to pain at right radial site status post recent cath along with staph bacteremia and pneumonia. Patient underwent left heart catheterization on 12/31/2024 with 3 stents placed. Patient is receiving IV antibiotics per hospitalist service. Vitals are stable. Labs are stable. A wrist CT was obtained shows an old triquetral fracture, mild widening of the scapholunate distance suggesting underlying ligamentous laxity or injury, wrist joint effusion with no areas of abnormal enhancement to suggest underlying inflammatory changes. He denies chest pain or shortness of breath today and reports overall he is feeling better. He does endorse right arm pain. Afebrile. [facility] Disclaimer: The information contained in this section may have been updated after the patient was seen, as this information can be updated by other users. Medical History Dizziness Crescendo angina Atypical angina SVT (supraventricular tachycardia) HFrEF (heart failure with reduced ejection fraction) Ventricular tachycardia Impotence Typical angina NYHA Class III cardiovascular function Post-operative complication Gynecomastia HHD (hypertensive heart disease) HLD (hyperlipidemia) CAD (coronary artery disease) Multiple nodules of lung Diastolic heart failure Obesity PAD (peripheral artery disease) Essential hypertension COPD (chronic obstructive pulmonary disease) GERD (gastroesophageal reflux disease) PVC (premature ventricular contraction) Systolic heart failure Tobacco dependence syndrome Surgical History Status post cardiac catheterization History of endarterectomy Family History Other No significant family history Social History Smoking Status: Current every day smoker tobacco type: cigarettes packs per day: 1 alcohol intake: never substance use type: denies use current occupational status: unemployed and retired Travel in the last 8 weeks?: Inside the [place] household members: significant other housing: house current occupational exposures/hazards: No caffeine: Yes Have you lived/traveled outside [place] in past 30 days?: No Contact w/someone who lives/traveled outside US past 30 days?: No Exposure to someone with infectious disease in past 14 days?: No Do you have a fever (greater than 100.4 F or 38 C)?: No Have you tested positive for COVID-19?: No Exposed to someone with COVID-19 in past 14 days?: No Do you have a sore throat?: No Do you have a cough?: No Do you have any weakness?: No Do you have any diarrhea?: No Are you experiencing any unusual bleeding?: No Do you have any muscle aches/pain?: No Do you have any abdominal pain?: No Are you experiencing loss of taste or smell?: No Review of Systems Review of Systems Review of systems:: pertinent systems reviewed and negative unless documented below Constitutional Constitutional: Reports fatigue *Cardiovascular Cardiovascular: Denies chest pain *Respiratory Respiratory: Reports cough *Musculoskeletal Comments: Arm pain Endocrine Endocrine: Reports fatigue Exam Data for Last 24 hours Vital signs and Labs for Last 24 Hours: Temp Pulse Resp BP Pulse Ox O2 Del Method O2 Flow Rate 98.1 F 60 18 122/57 L 96 Room Air 2 01/11/25 08:00 01/11/25 08:00 01/11/25 08:00 01/11/25 08:00 01/11/25 08:15 01/11/25 09:10 01/09/25 12:00 Laboratory Results - last 24 hr 01/10/25 07:55: A. baumannii (PCR) Not detected, Bacteroides fragilis Not detected, Chela albicans (PCR) Not detected, Chela auris (PCR) Not detected, C. glabrata (PCR) Not detected, C. krusei (PCR) Not detected, C. parapsilosis (PCR) Not detected, C. tropicalis (PCR) Not detected, Cryptococcus neoformans PCR Not detected, Enterobacterales (PCR) Not detected, Enterococc faecalis PCR Not detected, Enterococc faecium PCR Not detected, E. coli (PCR) Not detected, H. influenzae DNA Not detected, Klebsiella aerogenes (PCR) Not detected, Klebsiella oxytoca PCR Not detected, K. pneumoniae group (PCR) Not detected, List. monocytogenes PCR Not detected, N. meningitidis (PCR) Not detected, Proteus species (PCR) Not detected, Salmonella spp. (PCR) Not detected, Serratia marcescens PCR Not detected, Staphylococcus sp PCR Detected A, Staph aureus (PCR) Detected A, mecA/C & MREJ Resist Gene Detected A, mecA/C-Methicil Resis Gene Not applicable, Staph epidermidis (PCR) Not detected, Staph lugdunensis (TEM-PCR) Not detected, S. maltophilia (PCR) Not detected, Streptococcus sp PCR Not detected, S.agalactiae Grp B LIZZY Not detected, Strep pneumoniae (PCR) Not detected, S. pyogenes GrpA LIZZY Not detected, P. aeruginosa (PCR) Not detected, [place]/B-Vanco Res Genes Not applicable, blaIMP Car res Gene PCR Not applicable, KPC-Carbap Res Gene PCR Not applicable, blaNDM Car Res Gene PCR Not applicable, OXA-48 Carbapenem Resis Gene (PCR) Not applicable, blaVIM Car Res Gene PCR Not applicable, CTX-M Gene Resistance (PCR) Not applicable, MCR-1 Resistance Gene Not applicable 01/10/25 08:00: A. baumannii (PCR) Not detected, Bacteroides fragilis Not detected, Chela albicans (PCR) Not detected, Chela auris (PCR) Not detected, C. glabrata (PCR) Not detected, C. krusei (PCR) Not detected, C. parapsilosis (PCR) Not detected, C. tropicalis (PCR) Not detected, Cryptococcus neoformans PCR Not detected, Enterobacterales (PCR) Not detected, Enterococc faecalis PCR Not detected, Enterococc faecium PCR Not detected, E. coli (PCR) Not detected, H. influenzae DNA Not detected, Klebsiella aerogenes (PCR) Not detected, Klebsiella oxytoca PCR Not detected, K. pneumoniae group (PCR) Not detected, List. monocytogenes PCR Not detected, N. meningitidis (PCR) Not detected, Proteus species (PCR) Not detected, Salmonella spp. (PCR) Not detected, Serratia marcescens PCR Not detected, Staphylococcus sp PCR Detected A, Staph aureus (PCR) Detected A, mecA/C & MREJ Resist Gene Detected A, mecA/C-Methicil Resis Gene Not applicable, Staph epidermidis (PCR) Not detected, Staph lugdunensis (TEM-PCR) Not detected, S. maltophilia (PCR) Not detected, Streptococcus sp PCR Not detected, S.agalactiae Grp B LIZZY Not detected, Strep pneumoniae (PCR) Not detected, S. pyogenes GrpA LIZZY Not detected, P. aeruginosa (PCR) Not detected, [place]/B-Vanco Res Genes Not applicable, blaIMP Car res Gene PCR Not applicable, KPC-Carbap Res Gene PCR Not applicable, blaNDM Car Res Gene PCR Not applicable, OXA-48 Carbapenem Resis Gene (PCR) Not applicable, blaVIM Car Res Gene PCR Not applicable, CTX-M Gene Resistance (PCR) Not applicable, MCR-1 Resistance Gene Not applicable 01/10/25 08:23: Urine Color Yellow, Urine Appearance Clear, Urine pH 6.0, Ur Specific [place] >= 1.030, Urine Protein 1+ A, Urine Glucose (UA) Trace, Urine Ketones Negative, Urine Blood Trace-i, Urine Nitrate Negative, Urine Bilirubin Negative, Urine Urobilinogen 0.2, Ur Leukocyte Esterase Negative, Urine RBC 5-10, Urine WBC Occasional, Ur Squamous Epith Cells 3-5 01/10/25 12:19: ESR 99 H, C-Reactive Protein 173.9 H 01/11/25 05:55: WBC 4.5 L D, RBC 3.31 L, Hgb 10.0 L, Hct 29.8 L, MCV 90.0, MCH 29.6, MCHC 32.9, RDW 13.8, Plt Count 140 L, MPV 9.0, Neut % (Auto) 57.9, Lymph % (Auto) 24.9, [place] % (Auto) 13.7 H, Eos % (Auto) 3.3, Baso % (Auto) 0.0 L, Neut # (Auto) 2.6, Lymph # (Auto) 1.1, [place] # (Auto) 0.6, Eos # (Auto) 0.2, Baso # (Auto) 0.0, Sodium 132 L, Potassium 3.8, Chloride 106, Carbon Dioxide 20 L, Anion Gap 9.8, BUN 22 H, Creatinine 1.20, Estimated Creat Clear 88, Estimated GFR 60, Est GFR ( Amer) 73 D, Glucose 105 H, Calcium 7.7 L, Magnesium 1.8, Total Bilirubin 0.3, AST 46 D, ALT 40 D, Alkaline Phosphatase 56, C-Reactive Protein 123.0 H, Total Protein 5.9 L, Albumin 3.0 L D, Globulin 2.9, Albumin/Globulin Ratio 1.0 L I & O for Last 24 hours: Intake & Output 01/08/25 01/09/25 01/10/25 01/11/25 23:59 23:59 23:59 23:59 Intake Total 1410 / 1650 1880 / 1880 1100 / 1100 Output Total 0 / 0 775 / 775 250 / 250 Balance 1410 / 1650 1105 / 1105 850 / 850 Weight 215 lb 3.2 oz 215 lb 3.197 oz 229 lb 12.8 oz Microbiology Reports for the Last 24 Hours: Microbiology 01/09/25 11:19 Blood Blood Culture - Preliminary Gram Positive Cocci 01/09/25 10:36 Blood Blood Culture - Preliminary Gram Positive Cocci 01/10/25 07:55 Blood Blood Culture - Preliminary 01/10/25 08:00 Blood Blood Culture - Preliminary Constitutional Constitutional: no acute distress *Routine Respiratory Exam Respiratory: Present CTA bilaterally and symmetric chest movement *Routine Cardiovascular Exam Cardiovascular: Present RRR, Normal S1 and Normal S2 *Routine Abdominal Exam Abdominal: Present soft and normoactive bowel sounds; Absent tenderness *Routine Extremities Exam Extremities: Present edema and normal capillary refill Comments: Radial site-no obvious swelling or bleeding. Tenderness to site and arm is present. No erythema or warmth present. +strong radial pulse present. *Routine Skin Exam Skin: Present intact, dry and warm Detailed Neck Exam: Thyroids Thyroid: Absent bruit Meds Home Medications and Allergies Home Medications ?Medication ?Instructions ?Recorded ?Confirmed ?Type aspirin 81 mg tablet,delayed 81 mg PO DAILY 04/10/17 01/09/25 History release (Adult Low Dose Aspirin) bupropion HCl 150 mg tablet,12 hr 150 mg PO DAILY 04/10/17 01/09/25 History sustained-release fluticasone fur. 100 mcg-umeclid 1 inh inhalation DAILY 10/19/21 01/09/25 History 62.5 mcg-vilant 25 mcg inhalat.powder (Trelegy Ellipta) nitroglycerin 0.4 mg sublingual 0.4 mg sublingual Q5MINP PRN chest 09/17/23 01/09/25 History tablet (Nitrostat) pain olmesartan 40 mg tablet 40 mg PO DAILY 09/17/23 01/09/25 History ranolazine 1,000 mg 1,000 mg PO BID 12/29/24 01/09/25 History tablet,extended release,12 hr apixaban 5 mg tablet (Eliquis) 5 mg PO BID #60 tabs 12/30/24 01/09/25 Rx clopidogrel 75 mg tablet 75 mg PO DAILY 30 days #30 tabs 12/30/24 01/09/25 Rx metoprolol succinate 100 mg 100 mg PO HS 30 days #30 tabs 12/30/24 01/09/25 Rx tablet,extended release 24 hr New Prescriptions to Start Prescriptions: Allergies Allergy/AdvReac Type Severity Reaction Status Date / Time rosuvastatin (From Crestor) Allergy Mild Back Pain Verified 12/31/24 00:11 Assessment and Plan *Assessment and plan (1) Pneumonia: Status: Acute Category: Medical Code(s): J18.9 - Pneumonia, unspecified organism (2) JANAK (acute kidney injury): Status: Acute Category: Medical Code(s): N17.9 - Acute kidney failure, unspecified (3) Severe sepsis: Status: Acute Category: Medical Code(s): A41.9 - Sepsis, unspecified organism; R65.20 - Severe sepsis without septic shock (4) Right wrist pain: Status: Acute Category: Medical Code(s): M25.531 - Pain in right wrist (5) PAF (paroxysmal atrial fibrillation): Status: Acute Category: Medical Code(s): I48.0 - Paroxysmal atrial fibrillation (6) CAD (coronary artery disease): Status: Chronic Qualifiers: Associated angina: with stable angina Coronary Disease-Associated Artery/Lesion type: [place] artery [place] vs. transplanted heart: [place] heart Qualified Code(s): I25.118 - Atherosclerotic heart disease of [place] coronary artery with other forms of angina pectoris Category: Medical Code(s): I25.10 - Atherosclerotic heart disease of [place] coronary artery without angina pectoris (7) HFrEF (heart failure with reduced ejection fraction): Status: Acute Category: Medical Code(s): I50.20 - Unspecified systolic (congestive) heart failure Plan Pneumonia Sepsis Staph bacteremia Will defer antibiotic treatment to primary service and pulmonology Right wrist pain Ultrasound pending CT wrist-old triquetral fracture, mild widening of the scapholunate distance suggesting underlying ligamentous laxity or injury, wrist joint effusion with no areas of abnormal enhancement to suggest underlying inflammatory changes. Ortho is following History of paroxysmal atrial fibrillation Status post biventricular ICD Sinus rhythm Continue metoprolol and Eliquis History of coronary artery disease Elevated troponin/Acute myocardial injury Slightly elevated trop in the setting of sepsis, bacteremia, pneumonia Denies chest pain JEANNE x 3 12/2024 Continue aspirin, statin and Plavix History of HFrEF No signs of volume overload at this time EF 40, repeat pending JANAK Creatinine 2 on admission, improved to 1.2 01/11/2025: Ultrasound of right wrist is pending. No plan for SHANIKA at this time. Cardiac meds: Aspirin 81 mg p.o. daily-can stop 01/31/2025 and continue only Plavix and Eliquis Plavix 75 mg p.o. daily Eliquis 5 mg p.o. twice daily Metoprolol succinate 100 mg p.o. daily Ranolazine 1000 mg p.o. twice daily Jardiance 10 mg p.o. daily-on hold Aldactone 25 mg p.o. daily-on hold Olmesartan 40 mg po daily- On hold
--- NOTE | 2025-01-11 11:42 | CA_ITS ---
APPROVED REPORT EXAM: Limited 2D Echocardiogram with contrast Potato Chip Sorter: Lana Nunez RT(R) Ht: 5 ft 8 in Wt: 220lbs BSA: 2.13 BP: 122/57 mmHg Indications: Sepsis, recent echo 12/29/24, recent heart cath with 3 stents placed 12/31/24. Fever, edema RUE. Echo Enhancing Agent Indication: Endocardial border delineation Agent(s) / Amount(s) Used: Definity 2 cc 2D Dimensions EF AP4 60.90 % GL Strain -12.9 % M-Mode Dimensions RVDd 2.79 cm (0.9-2.6) LVDd 5.88 cm (3.5-5.7) LVDs 4.73 cm (3.5-5.7) IVSd 0.85 cm (0.6-1.1) PWd 0.72 cm (0.6-1.1) EF (Teich) 39.60% FS 19.60% EDV (Teich) 171.90 mL ESV (Teich) 103.90 mL Other Information Study Quality: Technically Difficult Conclusion This is a limited TTE to evaluate for LV systolic function and vegetations in the setting of new bacteremia. Limited windows are obtained. Technically difficult study. The left ventricle is normal in size. There is increased LV wall thickness. There is mild to moderate global hypokinesis present. The distal and apical wall are severely hypokinetic. LVEF is 40%. There is no obvious evidence of vegetations or mobile echodensities visualized in this TTE. Administration of ultrasound enhancing agent demonstrates no evidence of LV thrombus. Electronically signed by : Harika Quiñonez MD 01/11/2025 23:42:49
[2025-01-11] MEDS: DEFINITY US ECHO CONTRAST 2ML INJ 2 MG IV (13:30)
[2025-01-11] MEDS: VANCOMYCIN/WATER FOR INJ (PEG) 1.5 GM/300 ML PIGGYBACK IV (14:17)
--- NOTE | 2025-01-11 16:35 | P.PN_ITS ---
Subjective *Date: 01/11/25 *Time: 16:54 Interval history: No fever overnight. Wrist remains painful. Feels like it is more swollen today. No nausea or vomiting. Repeat set of blood cultures from yesterday returned positive in less than 24 hours. States generally he is feeling better however. Stable on room air. Cardiology and orthopedics to see him today Medical Exam Vital signs and Labs for Last 24 Hours: Vital Signs Temp Pulse Pulse Resp BP Pulse Ox O2 Del Method 01/11/25 16:00 98.1 F 58 L 17 121/58 L 96 Room Air 01/11/25 15:05 Room Air 01/11/25 13:20 Room Air 01/11/25 12:00 62 01/11/25 12:00 97.5 F L 60 18 144/70 H 95 Room Air 01/11/25 11:13 62 01/11/25 11:13 60 01/11/25 11:00 Room Air 01/11/25 09:10 Room Air 01/11/25 08:15 96 Room Air 01/11/25 08:00 69 01/11/25 08:00 98.1 F 60 18 122/57 L 96 Room Air 01/11/25 06:38 Room Air 01/11/25 06:00 60 01/11/25 06:00 66 01/11/25 06:00 94 L Room Air 01/11/25 05:00 Room Air 01/11/25 04:00 98.6 F 102 H 16 127/65 94 L Room Air 01/11/25 04:00 60 01/11/25 03:00 Room Air 01/11/25 01:00 Room Air 01/11/25 00:00 60 01/11/25 00:00 98.5 F 61 18 117/71 96 Room Air 01/10/25 23:42 61 01/10/25 23:42 65 01/10/25 23:00 Room Air 01/10/25 21:00 Room Air 01/10/25 20:00 60 01/10/25 20:00 98.4 F 63 16 111/59 L 96 Room Air 01/10/25 20:00 Room Air 01/10/25 18:34 Room Air 01/10/25 18:15 76 01/10/25 18:15 80 01/10/25 18:15 96 Room Air Intake and Output 01/11/25 01/11/25 01/11/25 07:59 15:59 23:59 Intake Total 200 / 1650 1150 / 1650 300 / 1650 Output Total 250 / 875 625 / 875 0 / 875 Balance -50 / 775 525 / 775 300 / 775 Intake: Intake, Oral Amount 1050 / 1050 Intake, Total IV Amount 200 / 600 100 / 600 300 / 600 Cefepime HCl 2 gm In 0.9 % 100 / 200 100 / 200 Sodium Chloride 100 ml @ 200 mls/hr IV Q8H EVEL[facility] Rx#:[id number] Metronidaz/Sod Chl 500 mg In 100 / 100 100 ml @ 100 mls/hr IV Q8H [facility] Rx#:[id number] Vancomycin/Water For Inj (Peg) 300 / 300 1.5 gm In 300 ml @ 150 mls/hr IV Q24H [facility]EL[facility] Rx#:[id number] Output: Output, Urine Amount 250 / 875 625 / 875 0 / 875 Other: Number of Unmeasured Voids 0 4 Weight 104.236 kg Patient Weight 01/11/25 23:59 Weight 104.236 kg Laboratory Results - last 24 hr 01/10/25 07:55: A. baumannii (PCR) Not detected, Bacteroides fragilis Not detected, Chela albicans (PCR) Not detected, Chela auris (PCR) Not detected, C. glabrata (PCR) Not detected, C. krusei (PCR) Not detected, C. parapsilosis (PCR) Not detected, C. tropicalis (PCR) Not detected, Cryptococcus neoformans PCR Not detected, Enterobacterales (PCR) Not detected, Enterococc faecalis PCR Not detected, Enterococc faecium PCR Not detected, E. coli (PCR) Not detected, H. influenzae DNA Not detected, Klebsiella aerogenes (PCR) Not detected, Klebsiella oxytoca PCR Not detected, K. pneumoniae group (PCR) Not detected, List. monocytogenes PCR Not detected, N. meningitidis (PCR) Not detected, Proteus species (PCR) Not detected, Salmonella spp. (PCR) Not detected, Serratia marcescens PCR Not detected, Staphylococcus sp PCR Detected A, Staph aureus (PCR) Detected A, mecA/C & MREJ Resist Gene Detected A, mecA/C-Methicil Resis Gene Not applicable, Staph epidermidis (PCR) Not detected, Staph lugdunensis (TEM-PCR) Not detected, S. maltophilia (PCR) Not detected, Streptococcus sp PCR Not detected, S.agalactiae Grp B LIZZY Not detected, Strep pneumoniae (PCR) Not detected, S. pyogenes GrpA LIZZY Not detected, P. aeruginosa (PCR) Not detected, [place]/B-Vanco Res Genes Not applicable, blaIMP Car res Gene PCR Not applicable, KPC-Carbap Res Gene PCR Not applicable, blaNDM Car Res Gene PCR Not applicable, OXA-48 Carbapenem Resis Gene (PCR) Not applicable, blaVIM Car Res Gene PCR Not applicable, CTX-M Gene Resistance (PCR) Not applicable, MCR-1 Resistance Gene Not applicable 01/10/25 08:00: A. baumannii (PCR) Not detected, Bacteroides fragilis Not detected, Chela albicans (PCR) Not detected, Chela auris (PCR) Not detected, C. glabrata (PCR) Not detected, C. krusei (PCR) Not detected, C. parapsilosis (PCR) Not detected, C. tropicalis (PCR) Not detected, Cryptococcus neoformans PCR Not detected, Enterobacterales (PCR) Not detected, Enterococc faecalis PCR Not detected, Enterococc faecium PCR Not detected, E. coli (PCR) Not detected, H. influenzae DNA Not detected, Klebsiella aerogenes (PCR) Not detected, Klebsiella oxytoca PCR Not detected, K. pneumoniae group (PCR) Not detected, List. monocytogenes PCR Not detected, N. meningitidis (PCR) Not detected, Proteus species (PCR) Not detected, Salmonella spp. (PCR) Not detected, Serratia marcescens PCR Not detected, Staphylococcus sp PCR Detected A, Staph aureus (PCR) Detected A, mecA/C & MREJ Resist Gene Detected A, mecA/C-Methicil Resis Gene Not applicable, Staph epidermidis (PCR) Not detected, Staph lugdunensis (TEM-PCR) Not detected, S. maltophilia (PCR) Not detected, Streptococcus sp PCR Not detected, S.agalactiae Grp B LIZZY Not detected, Strep pneumoniae (PCR) Not detected, S. pyogenes GrpA LIZZY Not detected, P. aeruginosa (PCR) Not detected, [place]/B-Vanco Res Genes Not applicable, blaIMP Car res Gene PCR Not applicable, KPC-Carbap Res Gene PCR Not applicable, blaNDM Car Res Gene PCR Not applicable, OXA-48 Carbapenem Resis Gene (PCR) Not applicable, blaVIM Car Res Gene PCR Not applicable, CTX-M Gene Resistance (PCR) Not applicable, MCR-1 Resistance Gene Not applicable 01/10/25 08:23: Urine Color Yellow, Urine Appearance Clear, Urine pH 6.0, Ur Specific [place] >= 1.030, Urine Protein 1+ A, Urine Glucose (UA) Trace, Urine Ketones Negative, Urine Blood Trace-i, Urine Nitrate Negative, Urine Bilirubin Negative, Urine Urobilinogen 0.2, Ur Leukocyte Esterase Negative, Urine RBC 5- 10, Urine WBC Occasional, Ur Squamous Epith Cells 3-5 01/11/25 05:55: WBC 4.5 L D, RBC 3.31 L, Hgb 10.0 L, Hct 29.8 L, MCV 90.0, MCH 29.6, MCHC 32.9, RDW 13.8, Plt Count 140 L, MPV 9.0, Neut % (Auto) 57.9, Lymph % (Auto) 24.9, [place] % (Auto) 13.7 H, Eos % (Auto) 3.3, Baso % (Auto) 0.0 L, Neut # (Auto) 2.6, Lymph # (Auto) 1.1, [place] # (Auto) 0.6, Eos # (Auto) 0.2, Baso # (Auto) 0.0, Sodium 132 L, Potassium 3.8, Chloride 106, Carbon Dioxide 20 L, Anion Gap 9.8, BUN 22 H, Creatinine 1.20, Estimated Creat Clear 88, Estimated GFR 60, Est GFR ( Amer) 73 D, Glucose 105 H, Calcium 7.7 L, Magnesium 1.8, Total Bilirubin 0.3, AST 46 D, ALT 40 D, Alkaline Phosphatase 56, C- Reactive Protein 123.0 H, Total Protein 5.9 L, Albumin 3.0 L D, Globulin 2.9, Albumin/Globulin Ratio 1.0 L I & O for Labs for Last 24 Hours: Intake & Output 01/08/25 01/09/25 01/10/25 01/11/25 23:59 23:59 23:59 23:59 Intake Total 1410 / 1650 1880 / 1880 1650 / 1650 Output Total 0 / 0 775 / 775 875 / 875 Balance 1410 / 1650 1105 / 1105 775 / 775 Weight 97.613 kg 97.613 kg 104.236 kg Microbiology Reports for the Last 24 Hours: Microbiology 01/09/25 11:19 Blood Blood Culture - Preliminary Gram Positive Cocci 01/09/25 10:36 Blood Blood Culture - Preliminary Gram Positive Cocci 01/10/25 07:55 Blood Blood Culture - Preliminary 01/10/25 08:00 Blood Blood Culture - Preliminary Constitutional: Present mild distress, obese, chronically ill appearing and cooperative Head: Present atraumatic Eyes: Present as per HPI ENT: Present normal exam Neck: Present normal inspection Respiratory: Present prolonged expiratory phase, wheezes (Minimal), normal respiratory effort and symmetric chest movement; Absent crackles Cardiac: Present Regular Rate Comment:: Atrial fibrillation with PVCs GI: Present soft and normal bowel sounds; Absent distention or tenderness Rectal (male): Present deferred (male): Present deferred Extremities: Present normal inspection and normal capillary refill; Absent edema Comment:: Right wrist tender to palpation, especially on dorsum. Pain with flexion and extension, significant limitation in extent of movement. Does have some edema and swelling today. Mild erythema and warmth. Skin: Present intact and dry; Absent erythema or rash Neuro: Present Grossly Intact, alert, awake and oriented x 3 Assessment and Plan *Assessment and plan (1) Pneumonia: Status: Acute Category: Medical Code(s): J18.9 - Pneumonia, unspecified organism (2) Severe sepsis: Status: Acute Category: Medical Code(s): A41.9 - Sepsis, unspecified organism; R65.20 - Severe sepsis without septic shock (3) JANAK (acute kidney injury): Status: Acute Category: Medical Code(s): N17.9 - Acute kidney failure, unspecified (4) Unstable angina: Status: Acute Category: Medical Code(s): I20.0 - Unstable angina (5) HFrEF (heart failure with reduced ejection fraction): Status: Acute Category: Medical Code(s): I50.20 - Unspecified systolic (congestive) heart failure (6) COPD (chronic obstructive pulmonary disease): Status: Chronic Qualifiers: COPD type: emphysema Emphysema type: other Qualified Code(s): J43.8 - Other emphysema Category: Medical Code(s): J44.9 - Chronic obstructive pulmonary disease, unspecified (7) Tobacco dependence syndrome: Status: Chronic Category: Medical Code(s): F17.200 - Nicotine dependence, unspecified, uncomplicated (8) CAD (coronary artery disease): Status: Chronic Qualifiers: Associated angina: with stable angina Coronary Disease-Associated Artery/Lesion type: [place] artery [place] vs. transplanted heart: [place] heart Qualified Code(s): I25.118 - Atherosclerotic heart disease of [place] coronary artery with other forms of angina pectoris Category: Medical Code(s): I25.10 - Atherosclerotic heart disease of [place] coronary artery without angina pectoris (9) Essential hypertension: Status: Chronic Category: Medical Code(s): I10 - Essential (primary) hypertension (10) HLD (hyperlipidemia): Status: Chronic Qualifiers: Hyperlipidemia type: mixed hyperlipidemia Qualified Code(s): E78.2 - Mixed hyperlipidemia Category: Medical Code(s): E78.5 - Hyperlipidemia, unspecified (11) PAD (peripheral artery disease): Status: Chronic Category: Medical Code(s): I73.9 - Peripheral vascular disease, unspecified (12) PAF (paroxysmal atrial fibrillation): Status: Acute Category: Medical Code(s): I48.0 - Paroxysmal atrial fibrillation (13) Generalized weakness: Status: Acute Category: Medical Code(s): R53.1 - Weakness (14) Right wrist pain: Status: Acute Category: Medical Code(s): M25.531 - Pain in right wrist (15) Staphylococcus aureus bacteremia: Status: Acute Category: Medical Code(s): R78.81 - Bacteremia; B95.61 - Methicillin susceptible Staphylococcus aureus infection as the cause of diseases classified elsewhere Plan Mr. Thurman is a 69-year-old male with recent admission for A-fib RVR and unstable angina, underwent left heart cath and received multiple stents on 12/31/2024. Was discharged home a week ago. Presents back to the ER with weakness, fever, chills and cough. History significant for A-fib, SVT, HFrEF, LHC with JEANNE, GERD, COPD, obesity, tobacco dependence, PAD, CAD, and pacemaker. Workup in the ER concerning for pneumonia, sepsis, JANAK. Discussed case with ER physician, request admission for further management of his sepsis. I decided to admit to [facility] for further care. Continue broad-spectrum antibiotics with cefepime, Flagyl, vancomycin. Cardiology to evaluate in the morning. Will obtain imaging of right wrist today. Blood cultures positive overnight for staph. Repeat blood cultures today. Problems addressed as follows: Severe sepsis secondary to staph bacteremia JANAK Pneumonia - Meeting sepsis criteria with tachycardia, tachypnea with respiratory rate 25, pneumonia on chest imaging. Has organ dysfunction with JANAK. Necessitating inpatient management. - PSI/Port score of 77, class III risk. - Continue vancomycin, cefepime, Flagyl for broad coverage given recent hospitalization - Both sets of blood cultures over the past 2 days have returned positive for Staph aureus. Repeat pending today. Awaiting clearance of cultures for initiation of 14-day timeframe for treatment. Still awaiting further speciation and sensitivity from current positive cultures - Repeat blood cultures obtained today - White counts 4.5. Hemoglobin 10. Inflammatory markers improving, CRP down to 123 from 173. ESR 99 - Will attempt to obtain sputum culture - DuoNebs every 6 hours scheduled - Repeat CBC, CMP, magnesium, ESR and CRP ordered for the morning #Atrial fibrillation, recent onset NSTEMI, type II ? Rate controlled at this time. Continue Eliquis 5 mg twice daily, metoprolol succinate 100 mg nightly. - Cardiology evaluating today. Will consider SHANIKA given blood cultures above and recent manipulation - Recent manipulation but also the stress of pneumonia with JANAK, troponin elevated at 0.06, BNP elevated at 1700 Right wrist pain: - Present since heart cath, worse today. Warm with mild swelling. CT obtained yesterday showing small effusion, not consistent with inflammation based on CT of contrast read. Also had chronic triquetral fracture - Orthopedics evaluating today. #CAD Heart failure with reduced ejection fraction, EF 40% ? Left heart cath performed 12/31/2024. Patient received 3 contiguous stents to the RCA. - Recently started on GDMT. Will hold Aldactone and olmesartan in the setting of JANAK and soft blood pressures/sepsis. Continue metoprolol succinate. Continue aspirin 81 mg daily, Plavix 75 mg daily, ranolazine at 1000 mg twice daily. - Echo obtained 2 weeks ago shows mild to moderate reduced LV, 40%. Severe hypokinesis of the distal and apical LV burgess. No valvular stenosis or regurgitation noted. ?Patient has dual-chamber ICD in place #Tobacco use disorder #COPD ? Patient states he is a daily smoker approximately 1 PPD. Discussed smoking cessation. Patient chest CTA is notable for cluster of less than 5 mm in size nodule in the posterior right upper lobe (favor postinfectious or inflammatory). - Continue Trelegy inhaler daily - Incentive spirometry - DuoNebs every 6 hours scheduled #Hyperlipidemia #Hypertension ? Patient elevated LDL, 112 2 weeks ago. Known history to [place] with myalgias. Reevaluate injectable treatment as an outpatient - Blood pressure soft, meds as above #Mood disorder: Continue Wellbutrin 150 mg daily. Full code Eliquis Cardiac diet
[2025-01-11] MEDS: NITROGLYCERIN 0.4MG SL TABLET 0.4 MG SL (16:50)
--- NOTE | 2025-01-11 17:10 | ECG_ITS ---
APPROVED REPORT Exam: Resting ECG HR:68 bpm ECG Measurements Heart Rate 68 AXES UT 167 P 70 QRSd 130 QRS 17 QT 400 T 72 QTc 417 Conclusion SINUS RHYTHM WITH OCCASIONAL VENTRICULAR PREMATURE COMPLEXES MODERATE INTRAVENTRICULAR CONDUCTION DELAY [105+ ms QRS DURATION, 80+ ms Q/S IN V1/V2, NO Q AND 60+ ms R IN I/aVL/V5/V6] ABNORMAL ECG UNCONFIRMED REPORT Electronically signed by : Rick Vernon MD 01/12/2025 20:12:27
[2025-01-11 18:35] LABS: Troponin I 0.02 ng/ml (0.00-0.034)
--- NOTE | 2025-01-11 18:40 | PC.NURSE ---
pt is A&Ox4. pt was taking a shower at 1640 and started complaining of chest pain. We got a set of vitals BP:164/82 P:85 O2 sat 97%. I gave him a nitro tablet and that relieved his chest pain. we ordered a stat EKG and a stat troponin on him. He got out of shower and was feeling fine after the nitro. pt has no other complaints at this time.
[2025-01-11] MEDS: METOPROLOL SUCCINATE XL 100MG TABLET 100 MG PO (20:26)
[2025-01-12] VITALS (8 sets, daily range): BP systolic 129–156; BP diastolic 64–81; PULSE 59–84; RESP 14–18; TEMP 36.4–36.8; O2SAT 93–98; BMI 34.0
[2025-01-12] MEDS: CEFEPIME HCL 2 GM in 0.9 % SODIUM CHLORIDE 100 ML IV ×2 (02:40→09:50)
[2025-01-12] MEDS: FLUTICASONE/UMECLIDIN/VILANTER 100/62.5/25MCG INHALER 1 PUFF IH (06:02)
[2025-01-12] MEDS: IPRATROPIUM/ALBUTEROL 3 ML NEB IH ×2 (06:02→11:15)
[2025-01-12 06:11] LABS: Hematocrit 30.3 % (42.0-52.0); Hemoglobin 10.4 g/dL (14.1-18.0); Immature Granulocytes % 0.4 %; Mean Corpuscular HGB Conc 34.3 g/dL (31.8-35.4); Mean Corpuscular Hemoglobin 30.6 pg (27.0-31.2); Mean Corpuscular Volume 89.1 fl (80-94); Nucleated Red Blood Cells % 0 %; Platelet Count 155 K/mm3 (142-424); Red Blood Count 3.40 M/mm3 (4.60-6.20); Red Cell Distribution Width-SD 45.3 fL; White Blood Count 4.6 K/mm3 (4.8-10.8)
[2025-01-12 06:17] LABS: Albumin Level 3.2 g/dl (3.5-5.0); Chloride 108 mmol/L (98-107); Potassium 4.3 mmoL/L (3.5-5.1); Sodium 135 mmol/L (136-145)
[2025-01-12 06:20] LABS: Alanine Aminotransferase 40 U/L (12-78); Albumin/Globulin Ratio 1.1 (1.1-1.8); Alkaline Phosphatase 55 U/L (38-126); Anion Gap 11.3 mEq/L (5-15); Aspartate Amino Transferase 35 U/L (17-59); Bilirubin,Total 0.4 mg/dl (0.2-1.3); Calcium 8.2 mg/dl (8.4-10.2); Carbon Dioxide 20 mmol/L (22.0-30.0); Globulin 2.9 g/dL (1.3-3.2); Glucose 101 mg/dl (74-100); Total Protein,Serum 6.1 g/dl (6.3-8.2)
[2025-01-12 06:25] LABS: Blood Urea Nitrogen 17 mg/dl (9-20); Creatinine Clearance Estimated 103 mL/min (50-200); Creatinine,Serum 0.90 mg/dl (0.66-1.25)
[2025-01-12 06:26] LABS: Estimated Glomerular Filt Rate 84 ml/min (>60); GFR (African American) 102 ML/MIN (>60)
[2025-01-12 07:14] LABS: C-Reactive Protein 70.8 mg/L (0-4)
[2025-01-12] MEDS: CLOPIDOGREL 75MG TAB 75 MG PO (08:22)
[2025-01-12] MEDS: APIXABAN 5MG TABLET 5 MG PO (08:22)
[2025-01-12] MEDS: RANOLAZINE 500MG ER TABLET 1000 MG PO (08:22)
[2025-01-12] MEDS: ASPIRIN EC 81MG TABLET 81 MG PO (08:22)
--- NOTE | 2025-01-12 09:45 | EXP.CARD.PN ---
Subjective Subjective Date: 01/12/25 Time: 08:30 Principal diagnosis: Severe sepsis secondary to staph bacteremia, JANAK, and pneumonia Interval history: Reports doing well this morning. Morning labs reviewed. Exam Data for Last 24 hours Vital signs and Labs for Last 24 Hours: Temp Pulse Resp BP Pulse Ox O2 Del Method O2 Flow Rate 97.6 F 70 18 141/68 H 96 Room Air 2 01/12/25 07:51 01/12/25 08:00 01/12/25 07:51 01/12/25 07:51 01/12/25 07:51 01/12/25 07:51 01/09/25 12:00 Laboratory Results - last 24 hr 01/11/25 17:52: Troponin I 0.02 01/12/25 05:45: WBC 4.6 L, RBC 3.40 L, Hgb 10.4 L, Hct 30.3 L, MCV 89.1, MCH 30.6, MCHC 34.3, RDW 13.8, Plt Count 155, MPV 9.3, Neut % (Auto) 56.9, Lymph % (Auto) 27.7, [place] % (Auto) 10.2 H, Eos % (Auto) 4.6, Baso % (Auto) 0.2, Neut # (Auto) 2.6, Lymph # (Auto) 1.3, [place] # (Auto) 0.5, Eos # (Auto) 0.2, Baso # (Auto) 0.0, ESR 82 H, Sodium 135 L, Potassium 4.3, Chloride 108 H, Carbon Dioxide 20 L, Anion Gap 11.3, BUN 17, Creatinine 0.90 D, Estimated Creat Clear 103, Estimated GFR 84, Est GFR ( Amer) 102 D, Glucose 101 H, Calcium 8.2 L, Total Bilirubin 0.4, AST 35, ALT 40, Alkaline Phosphatase 55, C-Reactive Protein 70.8 H D, Total Protein 6.1 L, Albumin 3.2 L, Globulin 2.9, Albumin/Globulin Ratio 1.1 I & O for Last 24 hours: Intake & Output 01/09/25 01/10/25 01/11/25 01/12/25 23:59 23:59 23:59 23:59 Intake Total 1410 / 1650 1880 / 1880 2020 / 2260 720 / 720 Output Total 0 / 0 775 / 775 1125 / 1125 150 / 150 Balance 1410 / 1650 1105 / 1105 895 / 1135 570 / 570 Weight 215 lb 3.2 oz 215 lb 3.197 oz 229 lb 12.8 oz 224 lb 8 oz Microbiology Reports for the Last 24 Hours: Microbiology 01/09/25 10:36 Blood Blood Culture - Preliminary Staphylococcus aureus 01/09/25 11:19 Blood Blood Culture - Final Staphylococcus aureus 01/11/25 08:15 Blood Blood Culture - Preliminary NO GROWTH AFTER 24 HOURS 01/11/25 08:09 Blood Blood Culture - Preliminary NO GROWTH AFTER 24 HOURS 01/10/25 08:00 Blood Blood Culture - Preliminary 01/10/25 07:55 Blood Blood Culture - Preliminary Constitutional Constitutional: no acute distress *Routine Respiratory Exam Respiratory: Present CTA bilaterally and symmetric chest movement *Routine Cardiovascular Exam Cardiovascular: Present RRR, Normal S1 and Normal S2 *Routine Abdominal Exam Abdominal: Present soft and normoactive bowel sounds; Absent tenderness *Routine Extremities Exam Extremities: Present full ROM and normal capillary refill; Absent edema *Routine Skin Exam Skin: Present intact, dry and warm Detailed Neck Exam: Thyroids Thyroid: Absent bruit Progress Note: A&P Assessment and plan (1) Pneumonia: Status: Acute (2) Severe sepsis: Status: Acute (3) JANAK (acute kidney injury): Status: Acute (4) Unstable angina: Status: Acute (5) HFrEF (heart failure with reduced ejection fraction): Status: Acute (6) COPD (chronic obstructive pulmonary disease): Status: Chronic (7) Tobacco dependence syndrome: Status: Chronic (8) CAD (coronary artery disease): Status: Chronic (9) Essential hypertension: Status: Chronic (10) HLD (hyperlipidemia): Status: Chronic (11) PAD (peripheral artery disease): Status: Chronic (12) PAF (paroxysmal atrial fibrillation): Status: Acute (13) Generalized weakness: Status: Acute (14) Right wrist pain: Status: Acute (15) Staphylococcus aureus bacteremia: Status: Acute Assessment and Plan Assessment and Plan for All Diagnoses:: Pneumonia Sepsis Staph bacteremia Will defer antibiotic treatment to primary service and pulmonology Right wrist pain Arterial Ultrasound-unremarkable exam CT wrist-old triquetral fracture, mild widening of the scapholunate distance suggesting underlying ligamentous laxity or injury, wrist joint effusion with no areas of abnormal enhancement to suggest underlying inflammatory changes. Ortho is following History of paroxysmal atrial fibrillation Status post biventricular ICD Sinus rhythm Continue metoprolol and Eliquis History of coronary artery disease Elevated troponin/Acute myocardial injury Slightly elevated trop in the setting of sepsis, bacteremia, pneumonia Denies chest pain JEANNE x 3 12/2024 Continue aspirin, statin and Plavix History of HFrEF No signs of volume overload at this time EF 40-no obvious evidence of vegetation or mobile E echodensities visualized on the TTE JANAK Creatinine 2 on admission, improved to 0.9 01/11/2025: Ultrasound negative for pseudoaneurysm or clot. No changes noted on echocardiogram. Creatinine continues to improve to 0.9 today. Can restart GDMT for HFrEF Cardiology will sign off. Please have patient follow-up in cardiology clinic for recheck in 1 week. Cardiac meds: Aspirin 81 mg p.o. daily-can stop 01/31/2025 and continue only Plavix and Eliquis Plavix 75 mg p.o. daily Eliquis 5 mg p.o. twice daily Metoprolol succinate 100 mg p.o. daily Ranolazine 1000 mg p.o. twice daily Jardiance 10 mg p.o. daily Aldactone 25 mg p.o. daily Irbesartan 75 mg po daily
[2025-01-12] MEDS: IRBESARTAN 75MG TABLET 75 MG PO (12:05)
[2025-01-12] MEDS: SPIRONOLACTONE 25MG TABLET 25 MG PO (12:05)
[2025-01-12] MEDS: EMPAGLIFLOZIN 10MG TABLET 10 MG PO (12:05)
[2025-01-12 14:05] LABS: Vancomycin,Trough 8.0 ug/mL (5.0-10.0)
--- NOTE | 2025-01-12 14:16 | EXP.PHA.CONS ---
Pharmacy Consult Date: 01/12/25 Time: 14:16 Referring provider: DR. BARNEY Reason for Consult:: VANCOMYCIN TROUGH LEVEL AND DOSE CHANGE Allergies Allergy/AdvReac Type Severity Reaction Status Date / Time rosuvastatin (From Crestor) Allergy Mild Back Pain Verified 12/31/24 00:11 Home Medications ?Medication ?Instructions ?Recorded ?Confirmed ?Type aspirin 81 mg tablet,delayed 81 mg PO DAILY 04/10/17 01/09/25 History release (Adult Low Dose Aspirin) bupropion HCl 150 mg tablet,12 hr 150 mg PO DAILY 04/10/17 01/09/25 History sustained-release fluticasone fur. 100 mcg-umeclid 1 inh inhalation DAILY 10/19/21 01/09/25 History 62.5 mcg-vilant 25 mcg inhalat.powder (Trelegy Ellipta) nitroglycerin 0.4 mg sublingual 0.4 mg sublingual Q5MINP PRN chest 09/17/23 01/09/25 History tablet (Nitrostat) pain olmesartan 40 mg tablet 40 mg PO DAILY 09/17/23 01/09/25 History ranolazine 1,000 mg 1,000 mg PO BID 12/29/24 01/09/25 History tablet,extended release,12 hr apixaban 5 mg tablet (Eliquis) 5 mg PO BID #60 tabs 12/30/24 01/09/25 Rx clopidogrel 75 mg tablet 75 mg PO DAILY 30 days #30 tabs 12/30/24 01/09/25 Rx metoprolol succinate 100 mg 100 mg PO HS 30 days #30 tabs 12/30/24 01/09/25 Rx tablet,extended release 24 hr New Prescriptions to Start Prescriptions: Height: 1.73 m Weight: 101.831 kg Laboratory Results:: Laboratory Results - last 24 hr 01/11/25 17:52: Troponin I 0.02 01/12/25 05:45: WBC 4.6 L, RBC 3.40 L, Hgb 10.4 L, Hct 30.3 L, MCV 89.1, MCH 30.6, MCHC 34.3, RDW 13.8, Plt Count 155, MPV 9.3, Neut % (Auto) 56.9, Lymph % (Auto) 27.7, [place] % (Auto) 10.2 H, Eos % (Auto) 4.6, Baso % (Auto) 0.2, Neut # (Auto) 2.6, Lymph # (Auto) 1.3, [place] # (Auto) 0.5, Eos # (Auto) 0.2, Baso # (Auto) 0.0, ESR 82 H, Sodium 135 L, Potassium 4.3, Chloride 108 H, Carbon Dioxide 20 L, Anion Gap 11.3, BUN 17, Creatinine 0.90 D, Estimated Creat Clear 103, Estimated GFR 84, Est GFR ( Amer) 102 D, Glucose 101 H, Calcium 8.2 L, Total Bilirubin 0.4, AST 35, ALT 40, Alkaline Phosphatase 55, C-Reactive Protein 70.8 H D, Total Protein 6.1 L, Albumin 3.2 L, Globulin 2.9, Albumin/Globulin Ratio 1.1 01/12/25 13:05: Vancomycin Trough 8.0 Medical History: Medical History (Updated 01/11/25 @ 16:56 by Rudi Barney MD) Dizziness [place] angina Atypical angina SVT (supraventricular tachycardia) HFrEF (heart failure with reduced ejection fraction) Ventricular tachycardia Impotence Typical angina NYHA Class III cardiovascular function Post-operative complication Gynecomastia HHD (hypertensive heart disease) HLD (hyperlipidemia) CAD (coronary artery disease) Multiple nodules of lung Diastolic heart failure Obesity PAD (peripheral artery disease) Essential hypertension COPD (chronic obstructive pulmonary disease) GERD (gastroesophageal reflux disease) PVC (premature ventricular contraction) Systolic heart failure Tobacco dependence syndrome Assessment and Plan Assessment and plan all Dx Assessment and Plan for all problems:: BASED ON PATIENT FACTORS AND VANCOMYCIN TROUGH LEVEL OF 8.0, RECOMMEND CHANGING VANCOMYCIN DOSE TO 1,500MG EVERY 12 HOURS. PHARMACY WILL CONTINUE TO MONITOR AND WILL ADJUST DOSE APPROPRIATE. -DAVE MOORE, JUAND
--- NOTE | 2025-01-12 14:56 | P.PN_ITS ---
Subjective *Date: 01/12/25 *Time: 14:56 Interval history: Patient seen while sitting up in bed. States pain in the wrist is the same as yesterday, but he feels better over all. Ortho Exam (Inpt) Vital signs and Labs for Last 24 Hours: Temp Pulse Resp BP Pulse Ox O2 Del Method O2 Flow Rate 98.2 F 75 16 156/81 H 96 Room Air 2 01/12/25 12:00 01/12/25 12:00 01/12/25 12:00 01/12/25 12:00 01/12/25 12:00 01/12/25 13:00 01/09/25 12:00 Laboratory Results - last 24 hr 01/11/25 17:52: Troponin I 0.02 01/12/25 05:45: WBC 4.6 L, RBC 3.40 L, Hgb 10.4 L, Hct 30.3 L, MCV 89.1, MCH 30.6, MCHC 34.3, RDW 13.8, Plt Count 155, MPV 9.3, Neut % (Auto) 56.9, Lymph % (Auto) 27.7, [place] % (Auto) 10.2 H, Eos % (Auto) 4.6, Baso % (Auto) 0.2, Neut # (Auto) 2.6, Lymph # (Auto) 1.3, [place] # (Auto) 0.5, Eos # (Auto) 0.2, Baso # (Auto) 0.0, ESR 82 H, Sodium 135 L, Potassium 4.3, Chloride 108 H, Carbon Dioxide 20 L, Anion Gap 11.3, BUN 17, Creatinine 0.90 D, Estimated Creat Clear 103, Estimated GFR 84, Est GFR ( Amer) 102 D, Glucose 101 H, Calcium 8.2 L, Total Bilirubin 0.4, AST 35, ALT 40, Alkaline Phosphatase 55, C-Reactive Protein 70.8 H D, Total Protein 6.1 L, Albumin 3.2 L, Globulin 2.9, Albumin/Globulin Ratio 1.1 01/12/25 13:05: Vancomycin Trough 8.0 I & O for Labs for Last 24 Hours: Intake & Output 01/09/25 01/10/25 01/11/25 01/12/25 23:59 23:59 23:59 23:59 Intake Total 1410 / 1650 1880 / 1880 2019 / 2259 1400 / 1400 Output Total 0 / 0 775 / 775 1125 / 1125 150 / 150 Balance 1410 / 1650 1105 / 1105 895 / 1135 1250 / 1250 Weight 97.613 kg 97.613 kg 104.236 kg 101.831 kg Microbiology Reports for the Last 24 Hours: Microbiology 01/10/25 08:00 Blood Blood Culture - Preliminary Gram Positive Cocci 01/10/25 07:55 Blood Blood Culture - Preliminary Gram Positive Cocci 01/09/25 10:36 Blood Blood Culture - Preliminary Staphylococcus aureus 01/09/25 11:19 Blood Blood Culture - Final Staphylococcus aureus 01/11/25 08:15 Blood Blood Culture - Preliminary NO GROWTH AFTER 24 HOURS 01/11/25 08:09 Blood Blood Culture - Preliminary NO GROWTH AFTER 24 HOURS Additional findings:: R wrist: + diffuse edema, no erythema, ecchymosis, area of fluctuance appreciated. PROM wrist nonpainful. NonTTP over radiocarpal joint line. Assessment and Plan *Assessment and plan (1) Right wrist pain: Status: Acute Category: Medical Code(s): M25.531 - Pain in right wrist Plan Plan was discussed with Dr. Guan, who saw the patient in conjunction, with recommendations as follows: 1. WBAT to RUE, may use wrist brace PRN pain 2. Pain control 3. Ice/heat PRN pain. 4. Continue abx. 5. MRI contraindicated due to AICD. 6. Currently no surgical indication. Patient should follow up in 1 week in clinic for outpatient followup.
[2025-01-12] MEDS: VANCOMYCIN/WATER FOR INJ (PEG) 1.5 GM/300 ML PIGGYBACK IV (15:05)
--- NOTE | 2025-01-12 16:37 | EXP.DC.SUM ---
General Admission date:: 01/09/25 HPI HPI HPI: Patient is s/p heart cath 01/01/25, with syncopal episode with fall on 01/08/25, not sure if he landed on wrist. States wrist has been stiff and painful since fall, may be slightly better since antibiotics started, but still very painful to move. Pain is localized to the wrist without radiation. Hospital Course Hospital Course Hospital Course: Mr. Thurman is a 69-year-old male with recent admission for A-fib RVR and unstable angina, underwent left heart cath and received multiple stents on 12/31/2024. Was discharged home a week ago. Presents back to the ER with weakness, fever, chills and cough. History significant for A-fib, SVT, HFrEF, LHC with JEANNE, GERD, COPD, obesity, tobacco dependence, PAD, CAD, and pacemaker. Workup in the ER concerning for pneumonia, sepsis, JANAK. Discussed case with ER physician, request admission for further management of his sepsis. I decided to admit to [facility] for further care. Continue broad-spectrum antibiotics with cefepime, Flagyl, vancomycin. Cardiology to evaluate in the morning. Will obtain imaging of right wrist today. Blood cultures positive overnight for staph. Repeat blood cultures today. Problems addressed as follows: #Severe sepsis, resolved #Right lower lobe hospital-acquired pneumonia #MRSA bacteremia - Initially met sepsis criteria with tachycardia, tachypnea with respiratory rate 25, pneumonia on chest imaging. Has organ dysfunction with JANAK. PSI/Port score of 77, class III risk. ? CXR admission showed right lower lobe consistent with pneumonia given presentation. In addition, patient also had a recent right heart cath using right radial site which seems to be infected which is another source of infection. ? During hospital course, patient was treated with broad-spectrum antibiotics including vancomycin, cefepime, Flagyl and weaned to vancomycin after blood cultures revealed MRSA bacteremia. ? Both 1st and 2nd blood cultures were positive for MRSA, but third set of blood cultures NGTD. Considered SHANIKA for possible endocarditis, however given blood cultures eventually not showing growth this was deferred by cardiology. Pneumonia and right wrist infection are most likely causes of MRSA bacteremia. Discussed with orthopedic surgery, low suspicion for septic wrist joint. ? Overall, patient clinically improved with broad-spectrum antibiotics. Continues to have right wrist pain but improved. No signs of underlying abscess, and right radial arterial duplex did not show thrombosis. ? Discharged with doxycycline 100 mg twice daily for 9 more days. Patient will follow closely with cardiology and PCP within 1 week. #Atrial fibrillation, recent onset #NSTEMI, type II #JANAK ? Rate controlled at this time. Continue Eliquis 5 mg twice daily, metoprolol succinate 100 mg nightly. ? NSTEMI type II in the setting of recent LHC with 3 stents to the RCA. Also in the setting of JANAK, creatinine improved from 2.0-0.90. No chest pain, shortness of breath. #CAD Heart failure with reduced ejection fraction, EF 40% ? Left heart cath performed 12/31/2024. Patient received 3 contiguous stents to the RCA. - Recently started on GDMT. Continue metoprolol succinate cardiology started Jardiance 10 mg and spironolactone 25 mg. Continue aspirin 81 mg daily, Plavix 75 mg daily, ranolazine at 1000 mg twice daily. - Echo obtained 2 weeks ago shows mild to moderate reduced LV, 40%. Severe hypokinesis of the distal and apical LV burgess. No valvular stenosis or regurgitation noted. ?Patient has dual-chamber ICD in place #Tobacco use disorder #COPD ? Patient states he is a daily smoker approximately 1 PPD. Discussed smoking cessation. Patient chest CTA is notable for cluster of less than 5 mm in size nodule in the posterior right upper lobe (favor postinfectious or inflammatory). - Continue Trelegy inhaler daily #Hyperlipidemia #Hypertension ? Patient elevated LDL, 112 2 weeks ago. Known history to [facility] with myalgias. Reevaluate injectable treatment as an outpatient #Mood disorder: Continue Wellbutrin 150 mg daily. Total time spent on discharge: 35 minutes on chart review, counseling, documentation, and direct care with patient. Exam Data for Last 24 hours Vital signs and Labs for Last 24 Hours: Temp Pulse Resp BP Pulse Ox O2 Del Method O2 Flow Rate 98.2 F 75 16 156/81 H 96 Room Air 2 01/12/25 12:00 01/12/25 12:00 01/12/25 12:00 01/12/25 12:00 01/12/25 12:00 01/12/25 15:00 01/09/25 12:00 Laboratory Results - last 24 hr 01/11/25 17:52: Troponin I 0.02 01/12/25 05:45: WBC 4.6 L, RBC 3.40 L, Hgb 10.4 L, Hct 30.3 L, MCV 89.1, MCH 30.6, MCHC 34.3, RDW 13.8, Plt Count 155, MPV 9.3, Neut % (Auto) 56.9, Lymph % (Auto) 27.7, [place] % (Auto) 10.2 H, Eos % (Auto) 4.6, Baso % (Auto) 0.2, Neut # (Auto) 2.6, Lymph # (Auto) 1.3, [place] # (Auto) 0.5, Eos # (Auto) 0.2, Baso # (Auto) 0.0, ESR 82 H, Sodium 135 L, Potassium 4.3, Chloride 108 H, Carbon Dioxide 20 L, Anion Gap 11.3, BUN 17, Creatinine 0.90 D, Estimated Creat Clear 103, Estimated GFR 84, Est GFR ( Amer) 102 D, Glucose 101 H, Calcium 8.2 L, Total Bilirubin 0.4, AST 35, ALT 40, Alkaline Phosphatase 55, C-Reactive Protein 70.8 H D, Total Protein 6.1 L, Albumin 3.2 L, Globulin 2.9, Albumin/Globulin Ratio 1.1 01/12/25 13:05: Vancomycin Trough 8.0 I & O for Last 24 hours: Intake & Output 01/09/25 01/10/25 01/11/25 01/12/25 23:59 23:59 23:59 23:59 Intake Total 1410 / 1650 1880 / 1880 2020 / 2260 1400 / 1400 Output Total 0 / 0 775 / 775 1125 / 1125 150 / 150 Balance 1410 / 1650 1105 / 1105 895 / 1135 1250 / 1250 Weight 97.613 kg 97.613 kg 104.236 kg 101.831 kg Microbiology Reports for the Last 24 Hours: Microbiology 01/10/25 08:00 Blood Blood Culture - Preliminary Gram Positive Cocci 01/10/25 07:55 Blood Blood Culture - Preliminary Gram Positive Cocci 01/09/25 10:36 Blood Blood Culture - Preliminary Staphylococcus aureus 01/09/25 11:19 Blood Blood Culture - Final Staphylococcus aureus 01/11/25 08:15 Blood Blood Culture - Preliminary NO GROWTH AFTER 24 HOURS 01/11/25 08:09 Blood Blood Culture - Preliminary NO GROWTH AFTER 24 HOURS Constitutional Constitutional: no acute distress, obese and chronically ill appearing *Routine HEENT Exam Head: Present normocephalic Eye: Present EOMI and PERRL ENT: Present mucous membranes moist *Routine Neck Exam Neck: Present supple; Absent lymphadenopathy *Routine Respiratory Exam Respiratory: Present CTA bilaterally *Routine Cardiovascular Exam Cardiovascular: Present RRR *Routine Abdominal Exam Abdominal: Present soft and normoactive bowel sounds; Absent tenderness *Routine Extremities Exam Extremities: Absent cyanosis, clubbing or edema Comments: Right wrist mild tenderness to palpation, range of motion mild limited by pain. *Routine Skin Exam Skin: Present warm; Absent rash *Routine Neurological Exam Neurological: Present alert and oriented X3 Results Data Completed and Pending Labs on day of discharge: Labs from last 24 hours 01/12/25 01/12/25 01/11/25 13:05 05:45 17:52 WBC 4.6 L RBC 3.40 L Hgb 10.4 L Hct 30.3 L MCV 89.1 MCH 30.6 MCHC 34.3 RDW 13.8 Plt Count 155 MPV 9.3 Neut % (Auto) 56.9 Lymph % (Auto) 27.7 [place] % (Auto) 10.2 H Eos % (Auto) 4.6 Baso % (Auto) 0.2 Neut # (Auto) 2.6 Lymph # (Auto) 1.3 [place] # (Auto) 0.5 Eos # (Auto) 0.2 Baso # (Auto) 0.0 ESR 82 H Sodium 135 L Potassium 4.3 Chloride 108 H Carbon Dioxide 20 L Anion Gap 11.3 BUN 17 Creatinine 0.90 D Estimated Creat Clear 103 Estimated GFR 84 Est GFR ( Amer) 102 D Glucose 101 H Calcium 8.2 L Total Bilirubin 0.4 AST 35 ALT 40 Alkaline Phosphatase 55 Troponin I 0.02 C-Reactive Protein 70.8 H D Total Protein 6.1 L Albumin 3.2 L Globulin 2.9 Albumin/Globulin Ratio 1.1 Vancomycin Trough 8.0 Preliminary micro results at discharge 01/10/25 08:00 Blood Culture - Preliminary Blood Gram Positive Cocci 01/10/25 07:55 Blood Culture - Preliminary Blood Gram Positive Cocci 01/09/25 10:36 Blood Culture - Preliminary Blood Staphylococcus aureus 01/11/25 08:15 Blood Culture - Preliminary Blood NO GROWTH AFTER 24 HOURS 01/11/25 08:09 Blood Culture - Preliminary Blood NO GROWTH AFTER 24 HOURS DS: Diagnosis Discharge Diagnosis (1) Right wrist pain: Status: Acute Code(s): M25.531 - Pain in right wrist Meds Home Medications and Allergies Home Medications ?Medication ?Instructions ?Recorded ?Confirmed ?Type aspirin 81 mg tablet,delayed 81 mg PO DAILY 04/10/17 01/09/25 History release (Adult Low Dose Aspirin) bupropion HCl 150 mg tablet,12 hr 150 mg PO DAILY 04/10/17 01/09/25 History sustained-release fluticasone fur. 100 mcg-umeclid 1 inh inhalation DAILY 10/19/21 01/09/25 History 62.5 mcg-vilant 25 mcg inhalat.powder (Trelegy Ellipta) nitroglycerin 0.4 mg sublingual 0.4 mg sublingual Q5MINP PRN chest 09/17/23 01/09/25 History tablet (Nitrostat) pain olmesartan 40 mg tablet 40 mg PO DAILY 09/17/23 01/09/25 History ranolazine 1,000 mg 1,000 mg PO BID 12/29/24 01/09/25 History tablet,extended release,12 hr apixaban 5 mg tablet (Eliquis) 5 mg PO BID #60 tabs 12/30/24 01/09/25 Rx clopidogrel 75 mg tablet 75 mg PO DAILY 30 days #30 tabs 12/30/24 01/09/25 Rx metoprolol succinate 100 mg 100 mg PO HS 30 days #30 tabs 12/30/24 01/09/25 Rx tablet,extended release 24 hr doxycycline monohydrate 100 mg 100 mg PO BID 9 days #18 caps 01/12/25 Rx capsule empagliflozin 10 mg tablet 10 mg PO DAILY 30 days #30 tabs 01/12/25 Rx (Jardiance) spironolactone 25 mg tablet 25 mg PO DAILY 30 days #30 tabs 01/12/25 Rx New Prescriptions to Start Prescriptions: doxycycline monohydrate Javan Adams empagliflozin [Jardiance] Javan Adams spironolactone Javan Adams Allergies Allergy/AdvReac Type Severity Reaction Status Date / Time rosuvastatin (From Crestor) Allergy Mild Back Pain Verified 12/31/24 00:11 Discharge Plan Disposition Patient Disposition: Home, Self-Care Condition: Fair Discharge Order Discharge Orders: Discharge Order (Routine); Ordered 01/12/25 Ordered By: Javan Adams Follow up Plan Follow up with: Farzaneh Garvin APRN [Nurse Practitioner, Cardiology] - 1 week Marycruz Winkler PA [Referring, Medical] - 01/19/25 8:40 am Rui Guan DO [Staff Physician, Orthopedics] - 01/18/25 2:00 pm Prescriptions/Medication Reconciliation: New spironolactone 25 mg Tablet 25 mg PO DAILY 30 Days Qty: 30 0RF Jardiance 10 mg Tablet 10 mg PO DAILY 30 Days Qty: 30 0RF doxycycline monohydrate 100 mg capsule 100 mg PO BID 9 Days Qty: 18 0RF Continued aspirin [Adult Low Dose Aspirin] 81 mg tablet,delayed release (DR/EC) 81 mg PO DAILY bupropion HCl 150 mg tablet extended release 12 hr 150 mg PO DAILY Trelegy Ellipta 100-62.5-25 mcg blister with device 1 inh IH DAILY ranolazine 1,000 mg tablet extended release 12 hr 1,000 mg PO BID clopidogrel 75 mg Tablet 75 mg PO DAILY 30 Days Qty: 30 0RF Eliquis 5 mg Tablet 5 mg PO BID Qty: 60 0RF metoprolol succinate 100 mg Tablet Extended Release 24 Hr 100 mg PO HS 30 Days Qty: 30 0RF nitroglycerin [Nitrostat] 0.4 mg tablet, sublingual 0.4 mg sublingual Q5MINP PRN (Reason: chest pain) Rx Instructions: do not exceed 3 doses per episode olmesartan 40 mg tablet 40 mg PO DAILY Problem Reconciliation Problems Reviewed?: Yes Patient Discharge Instructions Patient Instructions: Pneumonia in Adults, Sepsis, Stop Light Pneumonia, Stop Light COPD Print Language: Amharic Providers Primary Care Provider: WM Iain Morrison Admit Provider: Rudi Westfall Attending Provider: Rudi Westfall
--- NOTE | 2025-01-13 10:12 | SW/DCPLANNER ---
Spoke with patient on the phone. Patient stated that he is doing good. Patient stated that he is aware of his upcoming appointments. Patient stated that he was able to get his new medicine picked up from the pharmacy. Patient stated that he has no concerns or questions at this time. Uriah Varma
== END 2025-01-12 17:53 | disposition home or self-care (01) | DRG 871 ==
LOC: ER 12:45 → 2ND 13:09
PROVIDERS: Podiatrist Public Medicine; Admitting Provider Internal Medicine Adolescent Medicine; Emergency Provider Student in an Organized Health Care Education/Training Program; PCP Family Medicine; Visit Provider Internal Medicine Adolescent Medicine
DX: A41.02 Sepsis due to Methicillin resistant Staphylococcus aureus (principal); J18.9 Pneumonia, unspecified organism; N17.9 Acute kidney failure, unspecified; I50.22 Chronic systolic (congestive) heart failure; J44.0 Chronic obstructive pulmonary disease with (acute) lower respiratory infection; M84.431A Pathological fracture, right ulna, initial encounter for fracture; I5A Non-ischemic myocardial injury (non-traumatic); R65.20 Severe sepsis without septic shock; J43.8 Other emphysema; I11.0 Hypertensive heart disease with heart failure; I25.10 Atherosclerotic heart disease of native coronary artery without angina pectoris; I73.9 Peripheral vascular disease, unspecified; E78.2 Mixed hyperlipidemia; I48.0 Paroxysmal atrial fibrillation; F39 Unspecified mood [affective] disorder; M25.431 Effusion, right wrist; M25.531 Pain in right wrist; F17.210 Nicotine dependence, cigarettes, uncomplicated; R53.1 Weakness; Z95.810 Presence of automatic (implantable) cardiac defibrillator; Z95.5 Presence of coronary angioplasty implant and graft; Z71.6 Tobacco abuse counseling; Z88.8 Allergy status to other drugs, medicaments and biological substances; Z79.01 Long term (current) use of anticoagulants; Z79.02 Long term (current) use of antithrombotics/antiplatelets; Z79.82 Long term (current) use of aspirin; Z79.899 Other long term (current) drug therapy
CPT/HCPCS: 36415; 71045; 73110; 73201; 80053; 80202; 81001; 82803; 83605; 83735; 83880; 84100; 84443; 84484; 85025; 85651; 86140; 86803; 87040; 87077; 87154; 87186; 87389; 87636; 89220; 93005; 93308; 93931; 94640; 97162; 99285; J0692; J1836; J3375; J7030; Q9957; Q9967

== ENCOUNTER 2025-03-07 14:03 | Inpatient (IN) | payer MEDICARE, OTHER, SELFPAY ==
[2025-03-07] VITALS (15 sets, daily range): BP systolic 110–148; BP diastolic 49–105; PULSE 78–113; RESP 14–29; TEMP 36.7–38.6; O2SAT 94–98; BMI 32.6; BMI 32.9
--- NOTE | 2025-03-07 14:15 | ECG_ITS ---
APPROVED REPORT Exam: Resting ECG HR:94 bpm ECG Measurements Heart Rate 94 AXES MO 160 P 80 QRSd 113 QRS 255 QT 330 T 85 QTc 382 Conclusion SINUS RHYTHM INDETERMINATE AXIS PATTERN CONSISTENT WITH PULMONARY DISEASE MODERATE INTRAVENTRICULAR CONDUCTION DELAY [110+ ms QRS DURATION] ABNORMAL ECG UNCONFIRMED REPORT Electronically signed by : DRISS THOMPSON, 03/08/2025 00:18:34
--- NOTE | 2025-03-07 14:17 | XR_ITS ---
PROCEDURE INFORMATION: Exam: XR Chest Exam date and time: 03/07/2025 3:19 PM Age: 69 years old Clinical indication: Cough and fever; Additional info: Fever, cough, recent pna TECHNIQUE: Imaging protocol: Radiologic exam of the chest. Views: 2 views. COMPARISON: CT ANGIO CHEST PE PROTOCOL 12/30/2024 10:58 PM FINDINGS: Tubes, catheters and devices: Left subclavian pacemaker leads overlie the right atrium and right ventricle. Lungs: No acute cardiopulmonary findings. Pleural spaces: Unremarkable. No pleural effusion. No pneumothorax. Heart/Mediastinum: Unremarkable. No cardiomegaly. Bones/joints: Unremarkable. IMPRESSION: No acute cardiopulmonary findings.
--- OUTSIDE RECORDS SUMMARY | 2025-03-07 14:18 | XMS_ITS | Clinical Summary ---
Author Organization [facility] Address [facility] [place] [place] [address] Care Team Providers Care Print Production Associate Name Role Phone Unavailable Primary Care Provider [...] therelease of HIV test results or diagnoses. [id number] Social History Tobacco Use Types Packs/Day Years Used Date Smoking Tobacco: Never Assessed Sex and Gender Information Value Date Recorded Sex Assigned at Not on file Legal Sex Male 8:19 PM EST Gender Identity Not on file Sexual Orientation Not on file Plan of Treatment Not on file
--- OUTSIDE RECORDS SUMMARY | 2025-03-07 14:18 | XMS_ITS | Continuity of Care Document ---
Author Organization [place] [facility] Address [address] [place] [address] Assessment Encounter Date Assessment Date Assessment LastModified by Organization Details LastModified Time 01/05/2025 01/05/2025 -Medications were reviewed and any necessary updates and renewals were made, patient instructed to complete as prescribed. -The potential side effects of medications were discussed. -Counseling was done on care goals and ways to prevent future hospitalizatio ns. -Further treatment per orders listed below. [email or web address] Not available 01/05/2025 13:49:53 Plan of Treatment Reminders Order Date Submit Date Provider Last Modified By Organization Details Last Modified Time Details Appointments Establis [facility] Patient 20 2025 08:20A Boone Winkler PA-C Not available Not available Not available Lab None recorded . Referral None recorded . Procedures None recorded . Surgeries None recorded . Imaging None recorded . Medication Orders Jardianc e 10 mg tablet [email or web address]- [facility], [address] [place] [address] , [place], [address], 01/05/2025 14:21:00 Patient TargetsNo targets recorded. Patient Instructions Encounter Date Encounter Id Patient Instructions Last Modified By Organization Details Last Modified Time 01/05/2025 [id number] atrial fibrillation: care instructions Not available 01/05/2025 14:21:00 smoking cessatio n counseling, greater than 3 minutes up to 10 minutes* Not available 01/12/2025 09:00:58 CALL W CHANGES RTC OR ED IF SYMPTOMS CHANGE OR WORSEN KEEP NEXT INTERVAL CHECKUP f/u prn Not available 01/05/2025 14:21:27 Reason for Referral None Reported. Results Created Date Observation Date Name Description Value Unit Range Abnormal Flag Note LastModifiedBy Organization Detail LastModifiedTime 12/30/1912/29/2024 CT, angio gram, chest , w/wo contr ast No observ ation record ed. [address], [place], [address], 12/30/2024 12:39:22 12/30/1912/29/2024 [place], doppl er echoc ardio gram, w/ color flow No observ ation record ed. [address], [place], [address], 12/30/2024 12:39:50 12/30/19 25 11/28/2023 LDCT, chest , for lung cance r scree wally No observ ation record ed. [email or web address] Not Available 2024 10:36:36 01/13/20 25 01/11/2025 elect rocar diogr am No observ ation record ed. [address], [place], [address], 01/20/2025 16:02:27 01/15/20 25 01/09/2025 elect rocar diogr am No observ ation record ed. [address], [place], [address], 01/20/2025 16:02:39 01/21/20 25 XR, chest , 2 view No observ ation record ed. [email or web address] [address] , [place], [address], 01/20/2025 16:05:28 01/28/20 25 XR, chest , 2 view No observ ation record ed. [email or web address] [address] , [place], [address], 01/27/2025 11:03:49 Result Notes None recorded. Problems Name Problem SNOMED Code Status Onset Date Resolution Date Notes Provider Name and Address Organization Details Recorded Time Hypertensive disorder 15346710 Active 2020 Cecil Garland null, [place] - [facility] 1 07:46:06 Hyperlipidemi a 98300246 Active 2020 Cecil Garland null, [place] - [facility] 1 07:46:17 Chronic obstructive pulmonary disease 15584345 Active 2020 Marycruz Winkler PA-C [address], [place], [address] , [place] - [facility] 1 09:50:44 Anxiety 13268525 Active 2020 Marycruz Winkler PA-C [address], [place], [address] , [place] - [facility] 1 09:51:00 Irregular heart beat 398798261 Active 2020 Marycruz Winkler PA-C [address], [place], [address] , [place] [facility] 1 09:55:07 Bradycardia 71773393 Active 2022 Marycruz Winkler PA-C [address], [place], [address] , [place] - [facility] 3 09:07:29 Type 2 diabetes mellitus without complication 204250078 Active 2023 Marycruz Winkler PA-C [address], [place], [address] , [place] [facility] 4 09:02:02 Left lower quadrant pain 130807065 Active 2024 Marycruz Mcnair PA-C [address], [place], [address] , [place] - [facility] 5 11:12:30 Coronary arteriosclero sis 97982902 Active 2024 Marycruz Mcnair PA-C [address], [place], [address] , [place] - [facility] 09:02:04 Atrial fibrillation 91912282 Active 2024 Katie burton, [place] - [facility] 10:00:33 Problem Notes None recorded. Procedures Surgical History Date Name Laterality Status Provider Name and Address Organization Details Recorded Time 01/28/20 25 Medication Reconcilliation completed Marycruz Winkler PA-C [address], [place], [address], [place] - [facility] 01/27/2025 08:41:10 01/20/20 25 Medication Reconcilliation completed Singhkatina Garlnad [place] - [facility] 01/19/2025 08:40:30 01/06/20 25 Medication Reconcilliation completed Cecil Joseall [place] - [facility] 01/05/2025 13:49:53 10/30/19 25 Advance Care Planning completed Yonatanrisa Dada [place] - [facility] 10/29/2024 07:12:53 10/30/19 25 Functional Status Assessed completed Cecil Garland [place] - [facility] 10/29/2024 07:12:53 04/28/19 25 Nebulizer tx completed Matt Shaffer PA-C [address], [place], [address], [place] - [facility] 04/28/2024 09:15:51 11/07/19 24 Advance Care Planning completed Madisonshonda Dada [place] - [facility] 11/07/2023 07:24:50 11/07/19 24 Functional Status Assessed completed Yonatanrisa Dada [place] - [facility] 11/07/2023 07:24:50 09/24/19 24 Medication Reconcilliation completed Madisonshonda Garland [place] - [facility] 09/24/2023 14:08:03 11/07/19 23 Advance Care Planning completed Yonatanrisa Garland [place] - [facility] 11/06/2022 07:36:33 11/07/19 23 Functional Status Assessed completed Yonatanrisa Garland [place] - [facility] 11/06/2022 07:36:33 Knee Surgery completed Yonatanrisa Garland [place] - [facility] 07/21/2020 09:36:18 Shoulder joint surgery completed Cecil Garland [place] - [facility] 07/21/2020 09:36:03 repair of heart completed Cecil [place] - [facility] 07/21/2020 09:36:32 Imaging Results None recorded. Procedure Notes None recorded. Medical Equipment None Reported. Allergies Allergen ID Allergen Name Allergen Category Reaction Reaction Severity Criticality Documentation Date Start Date Code Code System Note Provider Name and Address Organization Details Recorded Time 433581 Product containin g 3-hydroxy -3-methyl glutaryl- coenzyme A reductase inhibitor (product) medicatio n muscle cramps moderate high 11/08/2023 01763 009 SNOMED Cecil burton, [place] - [facility] 09:30:08 Medications Name Sig Start [...] Not Available Not Available isosorbide mononitrate ER 30 mg tablet,exte nded release 24 hr TAKE 1 TABLET BY MOUTH TWICE DAILY active Not Available Not Available No t Available metoprolol succinate ER 100 mg tablet,exte nded release 24 hr TAKE 1 TABLET BY MOUTH EVERY NIGHT AT BEDTIME active Not Available Not Available No t Available Wellbutrin SR 150 mg tablet, 12 hr sustained-r elease Take 1 tablet every day by oral route. 07/21 completed Not Available Not Available Not Available clopidogrel 75 mg tablet TAKE 1 TABLET BY MOUTH [...] Not Available Not Available Not Available doxycycline monohydrate 100 mg capsule TAKE ONE (1) CAPSULE ORALLY TWICE A DAY FOR 9 DAYS active Not Available Not Available No t Available nitroglycer in 0.4 mg sublingual tablet DISSOLVE ONE TABLET ON TONGUE NEEDED FOR CHEST PAIN. MAY REPEAT EVERY 5 MINS X 3 DOSES. NO RELIEF, CALL MD OR 911 active Not Available Not Available No [...] completed Not Available Not Available Not Available levofloxaci n 500 mg tablet TAKE 1 TABLET BY MOUTH EVERY 24 HOURS FOR 7 DAYS 01/27 completed Not Available Not Available Not Available [...] Not Available Not Available Not Available olmesartan 20 mg tablet TAKE 1 TABLET BY MOUTH EVERY DAY active Not Available Not Available No t Available olmesartan 40 mg tablet TAKE 1 [...] weight Body temperature Heart rate Oxygen saturation Systolic And Diastolic Provider Name and Address Organization Details Last Updated DateTime 170.18 cm 14 /min 0 34.8 kg/m2 348850. 91 g 98.2 [degF] 70 /min 96 % 160/82 mm[Hg] Cecil Garland [place] - [facility] 13:54:50 Social History Question Answer Notes LastModified by Organizat ion Details LastModified Time Tobacco Smoking Status Current Every Day Smoker Cecil [place], [place] - [facility] 07/21/2020 09:35:16 Are You Blind Or Do You Have Difficulty Seeing? No Information n ot available 11/06/2022 In The 14 Days Before Symptom Onset, Have You Had Close Contact With A Laboratory-confirm ed COVID-19 While That Case Was Ill? No [email or web address] Information n ot available 11/06/2022 In The 14 Days Before Symptom Onset, Have You Had Close Contact With A Person Who Is Under Investigation For COVID-19 While That Person Was Ill? No [email or web address] Information not available 11/06/2022 Have You Been To An Area Known To Be High Risk For COVID-19? No [email or web address] Information not available 11/06/2022 Are You Deaf Or Do You Have Serious Difficulty Hearing? No [email or web address] Information not available 11/06/2022 Have You Processed Blood Or Body Fluids From An Ebola Virus Disease Patient Without Appropriate PPE? No [email or web address] Information not available 11/06/2022 Do You Reside In Or Have You Traveled To An Area Where Ebola Virus Transmission Is Active? No [email or web address] Information not available 11/06/2022 Have You Recently Or Are You Planning To Travel To An Area With Zika Virus? No [email or web address] Information not available 11/06/2022 What Was The Date Of Your Most Recent Tobacco Screening? 01/27/2025 [email or web address] Information not available 01/27/2025 What Is Your Current Pack Years? 30ormorepack years [email or web address] Information not available 05/10/2022 At What Age Did You Start Smoking Tobacco? 16 [email or web address] Information not available 05/10/2022 How Much Tobacco Do You Smoke? 0.5 PPD [email or web address] Information not available 05/10/2022 Has Tobacco Cessation Counseling Been Provided? Yes [email or web address] Information not available 05/10/2022 On What Date Was Tobacco Cessation Counseling Provided? 01/27/2025 [email or web address] Information not available 01/27/2025 How Many Years Have You Smoked Tobacco? 50 [email or web address] Information not available 07/21/2020 Do You Have Difficulty Walking Or Climbing Stairs? No [email or web address] Information not available 11/06/2022 Sex: Male Functional Status Question Answer Note LastModified by Organizat ion Details LastModified Time Do you or have you ever used any other forms of tobacco or nicotine? No [email or web address] Information not available 05/10/2022 Do you or have you ever used smokeless tobacco? Never used smokeless tobacco [email or web address] Information not available 09/06/2020 Do you have transportation difficulties? No [email or web address] Information not available 11/06/2022 Are you able to walk independently without assistance or assistive devices? YESWOREST [email or web address] Information not available 11/06/2022 Do you have difficulty doing errands alone? No [email or web address] Information not available 11/06/2022 Are you able to care for yourself independently? Yes [email or web address] Information not available 11/06/2022 Do you have difficulty dressing, bathing, grooming, or toileting? No [email or web address] Information not available 11/06/2022 Do you or have you ever used e-cigarettes or vape? Never used electronic cigarettes [email or web address] Information not available 09/06/2020 Mental Status Question Answer Note LastModified by Organization D etails LastModified Time Do you have difficulty concentrating, remembering or making decisions? No Information no t available 11/06/2022 Family History Relationship Description Onset Age of this Age Resolved Age Notes LastModified by Organization Details LastModified Time Mother Heart disease [email or web address] Not available 06/24 09:34:57 Father Carcinoma of prostate [email or web address] Not available 2020 10:54:14 Medical History Condition Response Allergies/Hayfever N Acne N ADD/ADHD N Alzheimer's Disease N Abnormal PAP N Bedwetting N AIDS/HIV N Hyperlipidemia Y Acid Reflux (GERD) N Abuse/Domestic Violence N Hypertension Y Past Encounters Encounter ID Performer Location Encounter Start Date Encounter Closed Date Diagnosis/Indication Diagnosis SNOMED-CT Code Diagnosis ICD10 Code Diagnosis IMO Codes Diagnosis Note [id number] Marycruz Winkler PA-C [address] [address] 01/05/2025 13:47:39 01/05/2025 14:26:04 Chest discomfort 548433110 R07.89 [id number] none today, improving. Pt had three new stents placed. -improved pt has apt with Dr Gómez next week. Atrial fibrillation 4943 6004 I48.91 97150224 he is on eliquis. he is on metoprolol . -stable per pt. Long-term current use of drug therapy 618108342 Z79.328 8538171 chronic conditions are stable. Cigarette smoker 6876743 7 F17.210 318060 went over to stop smoking. gave education about quitting. pt is on wellbutrin . pt has had ct lungs through Dr Tolbert. last Ct was with in the year. He is not using patches that hospital sent home. Pt sees Dr Tolbert. Pt has apt with Dr sutton office now. He has ct chest then. History of myocardial infarction 621626290 I25.[id number] gómez started jardiance. pt needs med. Health Concerns Section Related Observation LastModified by Organization Detai ls LastModified Time None Recorded Concern Status LastModified by Organization Details LastModified Time None Recorded Payers Encounter Date Sequence Insurance Name Policy Number Policy Castro Covered Member ID Castro Member ID Guarantor Name 01/05/2025 1 [employer] (MEDICARE REPLACEMENT/A DVANTAGE - HMO) [id number] Solomonsonu Thurman [id number] Solomon Thurman Notes Date Note Type Note Provider Name and Address Organization Details Recorded Time 01/05/2025 text/html Emergency Depart ment Follow-Up RecordReported by Patient Patient is here to f/u on hospital visit with [facility] for chest pain. Patient was [...] new flutters either. Marycruz Winkler PA-C [address], [place], [address], [facility] - [facility] 01/05/2025 14:21:58
--- OUTSIDE RECORDS SUMMARY | 2025-03-07 14:18 | XMS_ITS | Continuity of Care Document ---
[facility] Organization [facility] [address] [place] [address] Assessment Encounter Date Assessment Date Assessment LastModified by Organization Details LastModified Time 01/19/2025 01/19/2025 -Medications were reviewed and any necessary updates and renewals were made, patient instructed to complete as prescribed. -The potential side effects of medications were discussed. -Counseling was done on care goals and ways to prevent future hospitalizatio ns. -Further treatment per orders listed below. [email or web address] Not available 01/19/2025 08:40:30 Plan of Treatment Reminders Order Date Submit Date Provider Last Modified By Organization Details Last Modified Time Details Appointments Establ[facility] Patient 20 2025 08:20A M Marycruz Winkler PA-C Not available Not available Not available Lab CBC w/ auto diff 2024 025 [place] [facility], [address], [place], [place], [address], 01/20/2025 08:28:22 BMP, serum or plasma 2024 025 [place] [facility], [address], [place] [address], [place], [address], 01/20/2025 08:28:22 Referral None recorded . Procedures None recorded . Surgeries None recorded . Imaging XR, chest, 2 view 2024 025 [facility], [address] [place] [address] , [place], [address], 01/20/2025 09:54:59 Medication Orders None recorded . Patient TargetsNo targets recorded. Patient Instructions Encounter Date Encounter Id Patient Instructions Last Modified By Organization Details Last Modified Time 01/19/2025 [id number] pneumonia: care instructions Not available 01/19/2025 08:55:33 sepsis: care instructions Not available 01/19/2025 08:55:33 type 2 diabetes: care instructions Not available 01/19/2025 08:55:33 atrial fibrillation: care instructions Not available 01/19/2025 08:55:33 acute kidney injury: care instructions Not available 01/19/2025 08:55:33 CALL W CHANGES RTC OR ED IF SYMPTOMS CHANGE OR WORSEN KEEP NEXT INTERVAL CHECKUP Not available 01/19/2025 08:57:23 Reason for Referral None Reported. Results Created Date Observation Date Name Description Value Unit Range Abnormal Flag Note LastModifiedBy Organization Detail LastModifiedTime 01/20/2001/20/2025 CBC WITH DIFFE RENTI AL/PL ATELE T WBC 8.3 x10e3 /uL 3.4-10 .8 normal Not Available [facility] ([facility]) [address] [place], [address], 01/20/2025 08:28:22 01/20/2001/20/2025 CBC WITH DIFFE RENTI AL/PL ATELE T RBC 4.09 x10e6 /uL 4.14-5 .80 below low normal Not Available [facility] ([facility]) [address] [place], [address], 01/20/2025 08:28:22 01/20/2001/20/2025 CBC WITH DIFFE RENTI AL/PL ATELE T hemoglobin 12.4 g/dL 13.0-1 7.7 below low normal Not Available [facility] ([facility]) [address] [place], [address], 01/20/2025 08:28:22 01/20/2001/20/2025 CBC WITH DIFFE RENTI AL/PL ATELE T hematocrit 38.3 % 37.5-5 1.0 normal Not Available [facility] ([facility]) [address] [place], [address], 01/20/2025 08:28:22 01/20/2001/20/2025 CBC WITH DIFFE RENTI AL/PL ATELE T MCV 94 fL 79-97 normal Not Available [facility] ([facility]) [address] [place], [address], 01/20/2025 08:28:22 01/20/2001/20/2025 CBC WITH DIFFE RENTI AL/PL ATELE T MCH 30.3 pg 26.6-3 3.0 normal Not Available [facility] ([facility]) [address] [place], [address], 01/20/2025 08:28:22 01/20/2001/20/2025 CBC WITH DIFFE RENTI AL/PL ATELE T MCHC 32.4 g/dL 31.5-3 5.7 normal Not Available [facility] ([facility]) [address] [place], [address], 01/20/2025 08:28:22 01/20/2001/20/2025 CBC WITH DIFFE RENTI AL/PL ATELE T RDW 13.8 % 11.6-1 5.4 Not Available [facility] ([facility]) [address] [place], [address], 01/20/2025 08:28:22 01/20/2001/20/2025 CBC WITH DIFFE RENTI AL/PL ATELE T platelets 339 x10e3 /uL 150-45 0 normal Not Available [facility] ([facility]) [address] [place], [address], 01/20/2025 08:28:22 10/28/20 25 01/20/2025 CBC WITH DIFFE RENTI AL/PL ATELE T neutrophils 57 % not estab. normal Not Available [facility] ([facility]) [address] [facility], [place], [address], 01/20/2025 08:28:22 01/20/2001/20/2025 CBC WITH DIFFE RENTI AL/PL ATELE T lymphs 31 % not estab. normal Not Available [facility] ([facility]) [address] [facility], [place], [address], 01/20/2025 08:28:22 01/20/2001/20/2025 CBC WITH DIFFE RENTI AL/PL ATELE T monocytes 9 % not estab. normal Not Available [facility] ([facility]) [address] [facility], [place], [address], 01/20/2025 08:28:22 01/20/2001/20/2025 CBC WITH DIFFE RENTI AL/PL ATELE T eos 2 % not estab. normal Not Available [facility] ([facility]) [address] [facility], [place], [address], 01/20/2025 08:28:22 01/20/2001/20/2025 CBC WITH DIFFE RENTI AL/PL ATELE T basos 0 % not estab. normal Not Available [facility] ([facility]) [address] [facility], [place], [address], 01/20/2025 08:28:22 01/20/2001/20/2025 CBC WITH DIFFE RENTI AL/PL ATELE T immature cells CLAY MINER Not Available [facility] ([facility]) [address] [facility], [place], [address], 01/20/2025 08:28:22 01/20/2001/20/2025 CBC WITH DIFFE RENTI AL/PL ATELE T neutrophils (absolute) 4.7 x10e3 /uL 1.4-7. 0 normal Not Available [facility] ([facility]) [address] [facility], [place], [address], 01/20/2025 08:28:22 01/20/2001/20/2025 CBC WITH DIFFE RENTI AL/PL ATELE T lymphs (absolute) 2.5 x10e3 /uL 0.7-3. 1 normal Not Available [facility] ([facility]) [address] [facility], [place], [address], 01/20/2025 08:28:22 01/20/2001/20/2025 CBC WITH DIFFE RENTI AL/PL ATELE T monocytes(ab solute) 0.8 x10e3 /uL 0.1-0. 9 normal Not Available [facility] ([facility]) [address] [facility], [place], [address], 01/20/2025 08:28:22 01/20/20 25 01/20/2025 CBC WITH DIFFE RENTI AL/PL ATELE T eos (absolute) 0.2 x10e3 /uL 0.0-0. 4 normal Not Available [facility] ([facility]) [address] [facility], [place], [address], 01/20/2025 08:28:22 01/20/20 25 01/20/2025 CBC WITH DIFFE RENTI AL/PL ATELE T baso (absolute) 0.0 x10e3 /uL 0.0-0. 2 normal Not Available [facility] ([facility]) [address] [facility], [place], [address], 01/20/2025 08:28:22 01/20/20 25 01/20/2025 CBC WITH DIFFE RENTI AL/PL ATELE T immature granulocytes 0 % not estab. Not Available [facility] ([facility]) [address] [facility], [place], [address], 01/20/2025 08:28:22 01/20/20 25 01/20/2025 CBC WITH DIFFE RENTI AL/PL ATELE T immature grans (abs) 0.0 x10e3 /uL 0.0-0. 1 Not Available [facility] ([facility]) [address] [facility], [place], [address], 01/20/2025 08:28:22 01/20/2001/20/2025 CBC WITH DIFFE RENTI AL/PL ATELE T NRBC CLAY MINER Not Available [facility] ([facility]) [address] [facility], [place], [address], 01/20/2025 08:28:22 01/20/2001/20/2025 CBC WITH DIFFE RENTI AL/PL ATELE T hematology comments: CLAY MINER Not Available [facility] ([facility]) [address] [facility], [place], [address], 01/20/2025 08:28:22 01/20/2001/20/2025 BASIC METAB OLIC PANEL (8) glucose 89 mg/dL 70-99 normal Not Available [facility] ([facility]) [address] [facility], [place], [address], 01/20/2025 08:28:22 01/20/2001/20/2025 BASIC METAB OLIC PANEL (8) BUN 20 mg/dL 8-27 normal Not Available [facility] ([facility]) [address] [facility] [place], [address], 01/20/2025 08:28:22 01/20/2001/20/2025 BASIC METAB OLIC PANEL (8) creatinine 1.16 mg/dL 0.76-1 .27 normal Not Available [facility] ([facility]) [address] [facility] [place], [address], 01/20/2025 08:28:22 01/20/2001/20/2025 BASIC METAB OLIC PANEL (8) eGFR 69 mL/mi n/1.7 3 >59 normal Not Available [facility] ([facility]) [address] [place], [address], 01/20/2025 08:28:22 01/20/2001/20/2025 BASIC METAB OLIC PANEL (8) BUN/creatini ne ratio 17 10-24 normal Not Available [facility] ([facility]) [address] [facility], [place], [address], 01/20/2025 08:28:22 01/20/2001/20/2025 BASIC METAB OLIC PANEL (8) sodium 136 mmol/ L 134-14 4 normal Not Available [facility] ([facility]) [address] [facility], [place], [address], 01/20/2025 08:28:22 01/20/2001/20/2025 BASIC METAB OLIC PANEL (8) potassium 4.9 mmol/ L 3.5-5. 2 normal Not Available [facility] ([facility]) [address] [facility], [place], [address], 01/20/2025 08:28:22 01/20/2001/20/2025 BASIC METAB OLIC PANEL (8) chloride 100 mmol/ L 96-106 normal Not Available [facility] ([facility]) [address] [facility], [place], [address], 01/20/2025 08:28:22 01/20/2001/20/2025 BASIC METAB OLIC PANEL (8) carbon dioxide, total 21 mmol/ L 20-29 normal Not Available [facility] ([facility]) [address] [facility] [place], [address], 01/20/2025 08:28:22 01/20/2001/20/2025 BASIC METAB OLIC PANEL (8) calcium 9.5 mg/dL 8.6-10 .2 normal Not Available [facility] ([facility]) [address] [facility] [place], [address], 01/20/2025 08:28:22 12/30/1912/29/2024 CT, angio gram, chest , w/wo contr ast No observ ation record ed. [address], [place], [address], 12/30/2024 12:39:22 12/30/1912/29/2024 [place], doppl er echoc ardio gram, w/ color flow No observ ation record ed. [address], [place], [address], 12/30/2024 12:39:50 12/30/1911/28/2023 LDCT, chest , for lung cance r scree wally No observ ation record ed. [email or web address] Not Available 2024 10:36:36 01/13/20 25 01/11/2025 elect rocar diogr am No observ ation record ed. [address], [place], [address], 01/20/2025 16:02:27 01/15/20 25 01/09/2025 elect rocar diogr am No observ ation record ed. [address], [place], [address], 01/20/2025 16:02:39 01/21/20 25 XR, chest , 2 view No observ ation record ed. [email or web address] [address] , [place], [address], 01/20/2025 16:05:28 01/28/20 25 XR, chest , 2 view No observ ation record ed. [email or web address] [address] , [place], [address], 01/27/2025 11:03:49 Result Notes None recorded. Problems Name Problem SNOMED Code Status Onset Date Resolution Date Notes Provider Name and Address Organization Details Recorded Time Hypertensive disorder 34577972 Active 2020 Cecli Garland null, [place] - [facility] 1 07:46:06 Hyperlipidemi a 78010054 Active 2020 Cecil Joseall null, [place] - [facility] 1 07:46:17 Chronic obstructive pulmonary disease 63384757 Active 2020 Marycruz Winkler PA-C [address], [place], [address] , [place] - [facility] 1 09:50:44 Anxiety 38526325 Active 2020 Marycruz Winkler PA-C [address], [place], [address] , [place] - [facility] 1 09:51:00 Irregular heart beat 394374338 Active 2020 Marycruz Winkler PA-C [address], [place], [address] , [place] [facility] 1 09:55:07 Bradycardia 19289006 Active 2022 Marycruz Winkler PA-C [address], [place], [address] , [place] - [facility] 3 09:07:29 Type 2 diabetes mellitus without complication 835160276 Active 2023 Marycruz Winkler PA-C [address], [place], [address] , [place] [facility] 4 09:02:02 Left lower quadrant pain 251099541 Active 2024 Marycruz Mcnair PA-C [address], [place], [address] , [place] [facility] 5 11:12:30 Coronary arteriosclero sis 28316911 Active 2024 Marycruz Mcnair PA-C [address], [place], [address] , [place] [facility] 5 09:02:04 Atrial fibrillation 99933280 Active 2024 Katie Del Toro null, [place] - [facility] 10:00:33 Problem Notes None recorded. Procedures Surgical History Date Name Laterality Status Provider Name and Address Organization Details Recorded Time 01/28/20 Medication Reconcilliation completed Marycruz Winkler PA-C [address], [place], [address], [place] - [facility] 01/27/2025 08:41:10 01/20/20 25 Medication Reconcilliation completed Cecil MURRAY - [facility] 01/19/2025 08:40:30 01/06/20 25 Medication Reconcilliation completed Cecil MURRAY - [facility] 01/05/2025 13:49:53 10/30/19 25 Advance Care Planning completed Cecil MURRAY - [facility] 10/29/2024 07:12:53 10/30/19 25 Functional Status Assessed completed Cecil MURRAY - [facility] 10/29/2024 07:12:53 04/28/19 25 Nebulizer tx completed Matt Shaffer PA-C [address], [place], [address], [place] - [facility] 04/28/2024 09:15:51 11/07/19 24 Advance Care Planning completed Cecil MURRAY - [facility] 11/07/2023 07:24:50 11/07/19 24 Functional Status Assessed completed Cecil MURRAY [...] Name and Address Organization Details Recorded Time 517606 Product containin g 3-hydroxy -3-methyl glutaryl- coenzyme A reductase inhibitor (product) medicatio n muscle cramps moderate high 11/08/2023 45292 009 SNOMED Cecil [place], [place] - [facility] 4 09:30:08 Medications Name Sig Start Date Stop [...] t Available Vitals Date Recorded Body height Body mass index (BMI) Body weight Body temperature Heart rate Oxygen saturation Pain severity - 0-10 verbal numeric rating [Score] - Reported Systolic And Diastolic Provider Name and Address Organization Details Last Updated DateTime 170.18 cm 34.2 kg/m2 56621.2 4 g 97.6 [degF] 72 /min 96 % 0 112/60 mm[Hg] Rayjeanniejean Dada [place] - [facility] 08:43:44 Social History Question Answer Notes LastModified by Organizat ion Details LastModified Time Tobacco Smoking Status Current Every Day Smoker [place] - [facility] 07/21/2020 09:35:16 Are You Blind Or Do You Have Difficulty Seeing? No [email or web address] Information n ot available 11/06/2022 In The 14 Days Before Symptom Onset, Have You Had Close Contact With A Laboratory-confirm ed COVID-19 While That Case Was Ill? No [email or web address] Information n ot available 11/06/2022 In The 14 Days Before Symptom Onset, Have You Had Close Contact With A Person Who Is Under Investigation For COVID-19 While That Person Was Ill? No [email or web address] Information not available 11/06/2022 Have You Been To An Area Known To Be High Risk For COVID-19? No Information not available 11/06/2022 Are You Deaf Or Do You Have Serious Difficulty Hearing? No [email or web address] Information not available 11/06/2022 Have You Processed Blood Or Body Fluids From An Ebola Virus Disease Patient Without Appropriate PPE? No [email or web address] Information not available 11/06/2022 Do You Reside In Or Have You Traveled To An Area Where Ebola Virus Transmission Is Active? No [email or web address] Information not available 11/06/2022 Have You Recently Or Are You Planning To Travel To An Area With Zika Virus? No Information not available 11/06/2022 What Was The Date Of Your Most Recent Tobacco Screening? 01/27/2025 [email or web address] Information not available 01/27/2025 What Is Your Current Pack Years? 30ormorepack years [email or web address] Information not available 05/10/2022 At What Age Did You Start Smoking Tobacco? 16 [email or web address] Information not available 05/10/2022 How Much Tobacco Do You Smoke? 0.5 PPD [email or web address] Information not available 05/10/2022 Has Tobacco Cessation Counseling Been Provided? Yes [email or web address] Information not available 05/10/2022 On What Date Was Tobacco Cessation Counseling Provided? 01/27/2025 Information not available 01/27/2025 How Many Years Have You Smoked Tobacco? 50 [email or web address] Information not available 07/21/2020 Do You Have Difficulty Walking Or Climbing Stairs? No [email or web address] Information not available 11/06/2022 Sex: Male Functional Status Question Answer Note LastModified by Organizat ion Details LastModified Time Do you or have you ever used any other forms of tobacco or nicotine? No [email or web address] Information not available 05/10/2022 Do you or have you ever used smokeless tobacco? Never used smokeless tobacco [email or web address] Information not available 09/06/2020 Do you have transportation difficulties? No [email or web address] Information not available 11/06/2022 Are you able to walk independently without assistance or assistive devices? YESWOREST [email or web address] Information not available 11/06/2022 Do you have difficulty doing errands alone? No [email or web address] Information not available 11/06/2022 Are you able to care for yourself independently? Yes [email or web address] Information not available 11/06/2022 Do you have difficulty dressing, bathing, grooming, or toileting? No [email or web address] Information not available 11/06/2022 Do you or have you ever used e-cigarettes or vape? Never used electronic cigarettes [email or web address] Information not available 09/06/2020 Mental Status Question Answer Note LastModified by Organization D etails LastModified Time Do you have difficulty concentrating, remembering or making decisions? No [email or web address] Information no t available 11/06/2022 Family History Relationship Description Onset Age of this Age Resolved Age Notes LastModified by Organization Details LastModified Time Mother Heart disease Not available 06/24 09:34:57 Father Carcinoma of prostate [email or web address] Not available 2020 10:54:14 Medical History Condition Response Alzheimer's Disease N Acid Reflux (GERD) N Allergies/Hayfever N Acne N ADD/ADHD N Abnormal PAP N Bedwetting N AIDS/HIV N Hyperlipidemia Y Abuse/Domestic Violence N Hypertension Y Past Encounters Encounter ID Performer Location Encounter Start Date Encounter Closed Date Diagnosis/Indication Diagnosis SNOMED-CT Code Diagnosis ICD10 Code Diagnosis IMO Codes Diagnosis Note [id number] RUDY Mcdowell [address] [address] 01/05/2025 13:47:39 01/05/2025 14:26:04 Chest discomfort 048150142 R07.89 67892 none today, improving. Pt had three new stents placed. -improved pt has apt with Dr Gómez next week. Atrial fibrillation 4943 6004 I48.91 69194351 he is on eliquis. he is on metoprolol . -stable per pt. Long-term current use of drug therapy 297188702 Z79.108 5802039 chronic conditions are stable. Cigarette smoker 2859684 7 F17.210 124583 went over to stop smoking. gave education about quitting. pt is on wellbutrin . pt has had ct lungs through Dr Tolbert. last Ct was with in the year. He is not using patches that hospital sent home. Pt sees Dr Tolbert. Pt has apt with Dr sutton office now. He has ct chest then. History of myocardial infarction 141939840 I25.[address] gómez started jardiance. pt needs med. [id number] Marycruz Winkler PA-C [place] [address] [address] 01/19/2025 08:32:13 01/19/2025 09:05:39 Atrial fibrillation 25468663 I48.91 19215522 he is on eliquis. he is on metoprolol . -stable per pt. pt has apt with dr lopez office today. Pneumonia 686155990 J18. 9 9127287148 -improved finish doxy. Type 2 winston betes mellitus without complication 086113979 E11.9 pt is on Farxiga. Pt stop taking the farxiga and we will get a1c today. eye exam due 11/16. pt does not check BS at home. He is now on jardiance as well. He states sugars have been good. Sepsis 57131039 A41.9 [id number] pt still on doxy. Acute kidney injury 1466 9001 N17.9 894331 we will get bmp in office. push water. Health Concerns Section Related Observation LastModified by Organization Detai ls LastModified Time None Recorded Concern Status LastModified by Organization Details LastModified Time None Recorded Payers Encounter Date Sequence Insurance Name Policy Number Policy Castro Covered Member ID Castro Member ID Guarantor Name 01/19/2025 1 [facility] (MEDICARE REPLACEMENT/A DVANTAGE - HMO) [id number] Solomon Thurman [id number] Solomon Thurman Notes Date Note Type Note Provider Name and Address Organization Details Recorded Time 01/19/2025 text/html Emergency Depart ment Follow-Up RecordReported by Patient Patient is here to fu from new hospital visit since last visit. He had pneumonia. He passed out at home. He had kidney issues while in the hospital. When he fell and he saw ortho for his wrist pain. His wrist is ok. He has issues with right wrist. The visit before he had a fib. He has f/u with cards today at 2 pm. Today, he is still on antibiotics. They gave him doxy. No cough. No wheezing. No N/V/F/D. He is not on O2. Pt got out of hospital last week. Pt states he is getting stronger. He does not want home health. Marycruz Winkler PA-C [address], [place], [address], [place] - [facility] 01/19/2025 08:58:01
--- OUTSIDE RECORDS SUMMARY | 2025-03-07 14:18 | XMS_ITS | Continuity of Care Document ---
Author Organization [facility] [address] [place] [address] Assessment Encounter Date Assessment Date Assessment LastModified by Organization Details LastModified Time 01/27/2025 01/27/2025 -Medications were reviewed and any necessary updates and renewals were made, patient instructed to complete as prescribed. -The potential side effects of medications were discussed. -Counseling was done on care goals and ways to prevent future hospitalizatio ns. -Further treatment per orders listed below. Not available 01/27/2025 08:41:10 Plan of Treatment Reminders Order Date Submit Date Provider Last Modified By Organization Details Last Modified Time Details Appointments Establis [facility] Patient 20 2025 08:20A Boone Winkler PA-C Not available Not available Not available Lab BMP, serum or plasma 2024 025 [facility], [address], [place] [address], [place], [address], 01/28/2025 08:24:20 CBC w/ auto diff 2024 025 [facility]ANO [facility], [address], [place] [address], [place], [address], 01/28/2025 08:24:20 Referral None recorded . Procedures None recorded . Surgeries None recorded . Imaging XR, chest, 2 view 2024 025 [facility], [address] [place] [address] , [place], [address], 01/27/2025 09:46:57 Medication Orders nitrogly cerin 0.4 mg sublingu al tablet 2024 025 [facility], [address] [place] [address] , [place], [address], 01/27/2025 08:50:52 Patient TargetsNo targets recorded. Patient Instructions Encounter Date Encounter Id Patient Instructions Last Modified By Organization Details Last Modified Time 01/27/2025 [id number] acute kidney injury: care instructions Not available 01/27/2025 08:47:50 pneumonia: care instructions Not available 01/27/2025 08:47:51 sepsis: care instructions Not available 01/27/2025 08:47:51 type 2 diabetes: care instructions Not available 01/27/2025 08:47:51 atrial fibrillation: care instructions Not available 01/27/2025 08:47:51 abnormal weight loss: care instructions Not available 01/27/2025 08:50:50 CALL W CHANGES RTC OR ED IF SYMPTOMS CHANGE OR WORSEN KEEP NEXT INTERVAL CHECKUP Not available 01/27/2025 08:50:57 Reason for Referral None Reported. Results Created Date Observation Date Name Description Value Unit Range Abnormal Flag Note LastModifiedBy Organization Detail LastModifiedTime 01/20/2001/20/2025 CBC WITH DIFFE RENTI AL/PL ATELE T WBC 8.3 x10e3 /uL 3.4-10 .8 normal Not Available [facility] ([facility]) [address] [place], [address], 01/20/2025 08:28:22 01/20/2001/20/2025 CBC WITH DIFFE RENTI AL/PL ATELE T RBC 4.09 x10e6 /uL 4.14-5 .80 below low normal Not Available [facility] ([facility]) [address] [place], [address], 01/20/2025 08:28:22 01/20/2001/20/2025 CBC WITH DIFFE RENTI AL/PL ATELE T hemoglobin 12.4 g/dL 13.0-1 7.7 below low normal Not Available [facility] ([facility]) [address] [facility], [place], [address], 01/20/2025 08:28:22 01/20/2001/20/2025 CBC WITH DIFFE RENTI AL/PL ATELE T hematocrit 38.3 % 37.5-5 1.0 normal Not Available [facility] ([facility]) [address] [place], [address], 01/20/2025 08:28:22 01/20/2001/20/2025 CBC WITH DIFFE RENTI AL/PL ATELE T MCV 94 fL 79-97 normal Not Available [facility] ([facility]) [address] [place], [address], 01/20/2025 08:28:22 01/20/2001/20/2025 CBC WITH DIFFE RENTI AL/PL ATELE T MCH 30.3 pg 26.6-3 3.0 normal Not Available [facility] ([facility]) [address] [place], [address], 01/20/2025 08:28:22 01/20/2001/20/2025 CBC WITH DIFFE RENTI AL/PL ATELE T MCHC 32.4 g/dL 31.5-3 5.7 normal Not Available [facility] ([facility]) [address] [place], [address], 01/20/2025 08:28:22 01/20/2001/20/2025 CBC WITH DIFFE RENTI AL/PL ATELE T RDW 13.8 % 11.6-1 5.4 Not Available [facility] ([facility]) [address] [place], [address], 01/20/2025 08:28:22 01/20/2001/20/2025 CBC WITH DIFFE RENTI AL/PL ATELE T platelets 339 x10e3 /uL 150-45 0 normal Not Available [facility] ([facility]) [address] [facility], [place], [address], 01/20/2025 08:28:22 01/20/2001/20/2025 CBC WITH DIFFE RENTI AL/PL ATELE T neutrophils 57 % not estab. normal Not Available [facility] ([facility]) [address] [facility], [place], [address], 01/20/2025 08:28:22 01/20/2001/20/2025 CBC WITH DIFFE RENTI AL/PL ATELE T lymphs 31 % not estab. normal Not Available [facility] ([facility]) [address] [facility], [place], [address], 01/20/2025 08:28:22 01/20/2001/20/2025 CBC WITH DIFFE RENTI AL/PL ATELE T monocytes 9 % not estab. normal Not Available [facility] ([facility]) [address] [facility], [place], [address], 01/20/2025 08:28:22 01/20/2001/20/2025 CBC WITH DIFFE RENTI AL/PL ATELE T eos 2 % not estab. normal Not Available [facility] ([facility]) [address] [facility], [place], [address], 01/20/2025 08:28:22 01/20/2001/20/2025 CBC WITH DIFFE RENTI AL/PL ATELE T basos 0 % not estab. normal Not Available [facility] ([facility]) [address] [facility], [place], [address], 01/20/2025 08:28:22 01/20/2001/20/2025 CBC WITH DIFFE RENTI AL/PL ATELE T immature cells HEDDLER TIER Not Available [facility] ([facility]) [address] [facility], [place], [address], 01/20/2025 08:28:22 01/20/2001/20/2025 CBC WITH DIFFE RENTI AL/PL ATELE T neutrophils (absolute) 4.7 x10e3 /uL 1.4-7. 0 normal Not Available [facility] ([facility]) [address] [facility], [place], [address], 01/20/2025 08:28:22 01/20/2001/20/2025 CBC WITH DIFFE RENTI AL/PL ATELE T lymphs (absolute) 2.5 x10e3 /uL 0.7-3. 1 normal Not Available [facility] ([facility]) [address] [facility], [place], [address], 01/20/2025 08:28:22 01/20/2001/20/2025 CBC WITH DIFFE RENTI AL/PL ATELE T monocytes(ab solute) 0.8 x10e3 /uL 0.1-0. 9 normal Not Available [facility] ([facility]) [address] [place], [address], 01/20/2025 08:28:22 01/20/2001/20/2025 CBC WITH DIFFE RENTI AL/PL ATELE T eos (absolute) 0.2 x10e3 /uL 0.0-0. 4 normal Not Available [facility] ([facility]) [address] [place], [address], 01/20/2025 08:28:22 01/20/2001/20/2025 CBC WITH DIFFE RENTI AL/PL ATELE T baso (absolute) 0.0 x10e3 /uL 0.0-0. 2 normal Not Available [facility] ([facility]) [address] [place], [address], 01/20/2025 08:28:22 01/20/2001/20/2025 CBC WITH DIFFE RENTI AL/PL ATELE T immature granulocytes 0 % not estab. Not Available [facility] ([facility]) [address] [facility], [place], [address], 01/20/2025 08:28:22 01/20/2001/20/2025 CBC WITH DIFFE RENTI AL/PL ATELE T immature grans (abs) 0.0 x10e3 /uL 0.0-0. 1 Not Available [facility] ([facility]) [address] [facility], [place], [address], 01/20/2025 08:28:22 01/20/2001/20/2025 CBC WITH DIFFE RENTI AL/PL ATELE T NRBC HEDDLER TIER Not Available [facility] ([facility]) [address] [facility], [place], [address], 01/20/2025 08:28:22 01/20/2001/20/2025 CBC WITH DIFFE RENTI AL/PL ATELE T hematology comments: HEDDLER TIER Not Available [facility] ([facility]) [address] [facility], [place], [address], 01/20/2025 08:28:22 01/20/2001/20/2025 BASIC METAB OLIC PANEL (8) glucose 89 mg/dL 70-99 normal Not Available [facility] ([facility]) [address] [facility], [place], [address], 01/20/2025 08:28:22 01/20/2001/20/2025 BASIC METAB OLIC PANEL (8) BUN 20 mg/dL 8-27 normal Not Available [facility] ([facility]) [address] [place], [address], 01/20/2025 08:28:22 01/20/20 25 01/20/2025 BASIC METAB OLIC PANEL (8) creatinine 1.16 mg/dL 0.76-1 .27 normal Not Available [facility] ([facility]) [address] [facility], [place], [address], 01/20/2025 08:28:22 01/20/2001/20/2025 BASIC METAB OLIC PANEL (8) eGFR 69 mL/mi n/1.7 3 >59 normal Not Available [facility] ([facility]) [address] [facility], [place], [address], 01/20/2025 08:28:22 01/20/2001/20/2025 BASIC METAB OLIC PANEL (8) BUN/creatini ne ratio 17 10-24 normal Not Available [facility] ([facility]) [address] [facility], [place], [address], 01/20/2025 08:28:22 01/20/2001/20/2025 BASIC METAB OLIC PANEL (8) sodium 136 mmol/ L 134-14 4 normal Not Available [facility] ([facility]) [address] [facility] [place], [address], 01/20/2025 08:28:22 01/20/2001/20/2025 BASIC METAB OLIC PANEL (8) potassium 4.9 mmol/ L 3.5-5. 2 normal Not Available [facility] ([facility]) [address] [facility], [place], [address], 01/20/2025 08:28:22 01/20/2001/20/2025 BASIC METAB OLIC PANEL (8) chloride 100 mmol/ L 96-106 normal Not Available [facility] ([facility]) [address] [facility] [place], [address], 01/20/2025 08:28:22 01/20/2001/20/2025 BASIC METAB OLIC PANEL (8) carbon dioxide, total 21 mmol/ L 20-29 normal Not Available [facility] ([facility]) [address] [facility] [place], [address], 01/20/2025 08:28:22 01/20/20 25 01/20/2025 BASIC METAB OLIC PANEL (8) calcium 9.5 mg/dL 8.6-10 .2 normal Not Available [facility] ([facility]) [address] [facility], [place], [address], 01/20/2025 08:28:22 01/28/20 25 01/28/2025 CBC WITH DIFFE RENTI AL/PL ATELE T WBC 7.7 x10e3 /uL 3.4-10 .8 normal Not Available [facility] ([facility]) [address] [facility] [place], [address], 01/28/2025 08:24:20 01/28/20 25 01/28/2025 CBC WITH DIFFE RENTI AL/PL ATELE T RBC 4.03 x10e6 /uL 4.14-5 .80 below low normal Not Available [facility] ([facility]) [address] [place], [address], 01/28/2025 08:24:20 01/28/20 25 01/28/2025 CBC WITH DIFFE RENTI AL/PL ATELE T hemoglobin 12.1 g/dL 13.0-1 7.7 below low normal Not Available [facility] ([facility]) [address] [place], [address], 01/28/2025 08:24:20 01/28/20 25 01/28/2025 CBC WITH DIFFE RENTI AL/PL ATELE T hematocrit 37.8 % 37.5-5 1.0 normal Not Available [facility] ([facility]) [address] [place], [address], 01/28/2025 08:24:20 01/28/20 25 01/28/2025 CBC WITH DIFFE RENTI AL/PL ATELE T MCV 94 fL 79-97 normal Not Available [facility] ([facility]) [address] [place], [address], 01/28/2025 08:24:20 01/28/20 25 01/28/2025 CBC WITH DIFFE RENTI AL/PL ATELE T MCH 30.0 pg 26.6-3 3.0 normal Not Available [facility] ([facility]) [address] [facility], [place], [address], 01/28/2025 08:24:20 01/28/20 25 01/28/2025 CBC WITH DIFFE RENTI AL/PL ATELE T MCHC 32.0 g/dL 31.5-3 5.7 normal Not Available [facility] ([facility]) [address] [facility], [place], [address], 01/28/2025 08:24:20 01/28/20 25 01/28/2025 CBC WITH DIFFE RENTI AL/PL ATELE T RDW 14.2 % 11.6-1 5.4 Not Available [facility] ([facility]) [address] [facility], [place], [address], 01/28/2025 08:24:20 01/28/20 25 01/28/2025 CBC WITH DIFFE RENTI AL/PL ATELE T platelets 308 x10e3 /uL 150-45 0 normal Not Available [facility] ([facility]) [address] [facility], [place], [address], 01/28/2025 08:24:20 01/28/20 25 01/28/2025 CBC WITH DIFFE RENTI AL/PL ATELE T neutrophils 65 % not estab. normal Not Available [facility] ([facility]) [address] [facility], [place], [address], 01/28/2025 08:24:20 01/28/20 25 01/28/2025 CBC WITH DIFFE RENTI AL/PL ATELE T lymphs 25 % not estab. normal Not Available [facility] ([facility]) [address] [place], [address], 01/28/2025 08:24:20 11/05/20 25 01/28/2025 CBC WITH DIFFE RENTI AL/PL ATELE T monocytes 8 % not estab. normal Not Available [facility] ([facility]) [address] [facility], [place], [address], 01/28/2025 08:24:20 01/28/20 25 01/28/2025 CBC WITH DIFFE RENTI AL/PL ATELE T eos 2 % not estab. normal Not Available [facility] ([facility]) [address] [facility], [place], [address], 01/28/2025 08:24:20 01/28/20 25 01/28/2025 CBC WITH DIFFE RENTI AL/PL ATELE T basos 0 % not estab. normal Not Available [facility] ([facility]) [address] [facility], [place], [address], 01/28/2025 08:24:20 01/28/20 25 01/28/2025 CBC WITH DIFFE RENTI AL/PL ATELE T immature cells HEDDLER TIER Not Available [facility] ([facility]) [address] [place], [address], 01/28/2025 08:24:20 01/28/20 25 01/28/2025 CBC WITH DIFFE RENTI AL/PL ATELE T neutrophils (absolute) 5.0 x10e3 /uL 1.4-7. 0 normal Not Available [facility] ([facility]) [address] [facility], [place], [address], 01/28/2025 08:24:20 01/28/20 25 01/28/2025 CBC WITH DIFFE RENTI AL/PL ATELE T lymphs (absolute) 1.9 x10e3 /uL 0.7-3. 1 normal Not Available [facility] ([facility]) [address] [place], [address], 01/28/2025 08:24:20 01/28/20 25 01/28/2025 CBC WITH DIFFE RENTI AL/PL ATELE T monocytes(ab solute) 0.6 x10e3 /uL 0.1-0. 9 normal Not Available [facility] ([facility]) [address] [facility], [place], [address], 01/28/2025 08:24:20 01/28/20 25 01/28/2025 CBC WITH DIFFE RENTI AL/PL ATELE T eos (absolute) 0.1 x10e3 /uL 0.0-0. 4 normal Not Available [facility] ([facility]) [address] [facility], [place], [address], 01/28/2025 08:24:20 01/28/20 25 01/28/2025 CBC WITH DIFFE RENTI AL/PL ATELE T baso (absolute) 0.0 x10e3 /uL 0.0-0. 2 normal Not Available [facility] ([facility]) [address] [facility], [place], [address], 01/28/2025 08:24:20 01/28/20 25 01/28/2025 CBC WITH DIFFE RENTI AL/PL ATELE T immature granulocytes 0 % not estab. Not Available [facility] ([facility]) [address] [facility], [place], [address], 01/28/2025 08:24:20 01/28/20 25 01/28/2025 CBC WITH DIFFE RENTI AL/PL ATELE T immature grans (abs) 0.0 x10e3 /uL 0.0-0. 1 Not Available [facility] ([facility]) [address] [place], [address], 01/28/2025 08:24:20 01/28/20 25 01/28/2025 CBC WITH DIFFE RENTI AL/PL ATELE T NRBC HEDDLER TIER Not Available [facility] ([facility]) [address] [place], [address], 01/28/2025 08:24:20 11/05/20 25 01/28/2025 CBC WITH DIFFE DEJAH AL/PL ATELE T hematology comments: HEDDLER TIER Not Available [facility] ([facility]) [address] [facility], [place], [address], 01/28/2025 08:24:20 01/28/20 25 01/28/2025 BASIC METAB OLIC PANEL (8) glucose 89 mg/dL 70-99 normal Not Available [facility] ([facility]) [address] [facility], [place], [address], 01/28/2025 08:24:20 01/28/20 25 01/28/2025 BASIC METAB OLIC PANEL (8) BUN 24 mg/dL 8-27 normal Not Available [facility] ([facility]) [address] [facility], [place], [address], 01/28/2025 08:24:20 01/28/20 25 01/28/2025 BASIC METAB OLIC PANEL (8) creatinine 1.51 mg/dL 0.76-1 .27 above high normal Not Available [facility] ([facility]) [address] [place], [address], 01/28/2025 08:24:20 01/28/20 25 01/28/2025 BASIC METAB OLIC PANEL (8) eGFR 50 mL/mi n/1.7 3 >59 below low normal Not Available [facility] ([facility]) [address] [facility], [place], [address], 01/28/2025 08:24:20 01/28/20 25 01/28/2025 BASIC METAB OLIC PANEL (8) BUN/creatini ne ratio 16 10-24 normal Not Available [facility] ([facility]) [address] [place], [address], 01/28/2025 08:24:20 01/28/20 25 01/28/2025 BASIC METAB OLIC PANEL (8) sodium 136 mmol/ L 134-14 4 normal Not Available [facility] ([facility]) [address] [facility], [place], [address], 01/28/2025 08:24:20 01/28/20 25 01/28/2025 BASIC METAB OLIC PANEL (8) potassium 4.6 mmol/ L 3.5-5. 2 normal Not Available [facility] ([facility]) [address] [place], [address], 01/28/2025 08:24:20 01/28/20 25 01/28/2025 BASIC METAB OLIC PANEL (8) chloride 101 mmol/ L 96-106 normal Not Available [facility] ([facility]) [address] [facility], [place], [address], 01/28/2025 08:24:20 01/28/20 25 01/28/2025 BASIC METAB OLIC PANEL (8) carbon dioxide, total 21 mmol/ L 20-29 normal Not Available [facility] ([facility]) [address] [facility], [place], [address], 01/28/2025 08:24:20 01/28/20 25 01/28/2025 BASIC METAB OLIC PANEL (8) calcium 9.6 mg/dL 8.6-10 .2 normal Not Available [facility] ([facility]) [address] [place], [address], 01/28/2025 08:24:20 12/30/19 25 12/29/2024 CT, angio gram, chest , w/wo contr ast No observ ation record ed. [facility] [address], [place], [address], 12/30/2024 12:39:22 12/30/19 25 12/29/2024 US, doppl er echoc ardio gram, w/ color flow No observ ation record ed. [email or web address] [facility] [address], [place], [address], 12/30/2024 12:39:50 12/30/19 25 11/28/2023 LDCT, chest , for lung cance r gorge lo No observ ation record ed. [email or web address] Not Available 2024 10:36:36 01/13/20 25 01/11/2025 elect rocar diogr am No observ ation record ed. [address], [place], [place], [address], 01/20/2025 16:02:27 01/15/20 25 01/09/2025 elect rocar diogr am No observ ation record ed. [email or web address] [facility] [address], [place], [place], [address], 01/20/2025 16:02:39 01/21/20 25 XR, chest , 2 view No observ ation record ed. [address] , [place], [address], 01/20/2025 16:05:28 01/28/20 25 XR, chest , 2 view No observ ation record ed. [email or web address] [place] [address] , [place], [address], 01/27/2025 11:03:49 Result Notes None recorded. Problems Name Problem SNOMED Code Status Onset Date Resolution Date Notes Provider Name and Address Organization Details Recorded Time Hypertensive disorder 20959001 Active 2020 [place] Salgado - [facility] 07:46:06 Hyperlipidemi a 71371857 Active 2020 [place] Salgado - [facility] 07:46:17 Chronic obstructive pulmonary disease 71398592 Active 2020 Marycruz Winkler PA-C [address], [place], [address] , [place] - [facility] 04/29/202 1 09:50:44 Anxiety 70839709 Active 2020 Marycruz Winkler PA-C [address], [place], [address] , [place] - [facility] 1 09:51:00 Irregular heart beat 365031308 Active 2020 Marycruz Winkler PA-C [address], [place], [address] , [place] [facility] 1 09:55:07 Bradycardia 60516707 Active 2022 Marycruz Winkler PA-C [address], [place], [address] , [place] - [facility] 3 09:07:29 Type 2 diabetes mellitus without complication 002672774 Active 2023 Marycruz Winkler PA-C [address], [place], [address] , [place] - [facility] 4 09:02:02 Left lower quadrant pain 697896818 Active 2024 Marycruz Mcnair PA-C [address], [place], [address] , [place] [facility] 5 11:12:30 Coronary arteriosclero sis 08147645 Active 2024 Marycruz Mcnair PA-C [address], [place], [address] , [place] [facility] 5 09:02:04 Atrial fibrillation 71482760 Active 2024 Katie bur[place], [place] - [facility] 5 10:00:33 Problem Notes None recorded. Procedures Surgical History Date Name Laterality Status Provider Name and Address Organization Details Recorded Time 01/28/20 Medication Reconcilliation completed Marycruz Winkler PA-C [address], [place], [address], [place] - [facility] 01/27/2025 08:41:10 01/20/20 25 Medication Reconcilliation completed Cecil Garland [place] - [facility] 01/19/2025 08:40:30 01/06/20 25 Medication Reconcilliation completed Cecil Garland [place] - [facility] 01/05/2025 13:49:53 10/30/19 25 Advance Care Planning completed Cecil Garland [place] - [facility] 10/29/2024 07:12:53 10/30/19 25 Functional Status Assessed completed Cecil Garland [place] - [facility] 10/29/2024 07:12:53 04/28/19 25 Nebulizer tx completed Matt Shaffer PA-C [address], [place], [address], [place] - [facility] 04/28/2024 09:15:51 11/07/19 24 Advance Care Planning completed Cecil MURRAY - [facility] 11/07/2023 07:24:50 11/07/19 24 Functional Status Assessed completed Cecil Garland [place] - [facility] 11/07/2023 07:24:50 09/24/19 24 [...] Name and Address Organization Details Recorded Time 075879 Product containin g 3-hydroxy -3-methyl glutaryl- coenzyme A reductase inhibitor (product) medicatio n muscle cramps moderate high 11/08/2023 74979 009 SNOMED [place] Salgado - [facility] 09:30:08 [...] DateTime 5 170.18 cm 14 /min 0 33.6 kg/m2 38066.8 7 g 97.5 [degF] 78 /min 99 % 140/80 mm[Hg] Cecil Garland [place] - [facility] 5 08:37:11 Social History Question Answer Notes LastModified by Organizat ion Details LastModified Time Tobacco Smoking Status Current Every Day Smoker Cecil [place], [place] - [facility] 07/21/2020 09:35:16 Are You Blind Or Do You Have Difficulty Seeing? No [email or web address] Information n ot available 11/06/2022 In The 14 Days Before Symptom Onset, Have You Had Close Contact With A Laboratory-confirm ed COVID-19 While That Case Was Ill? No [email or web address] Information n ot available 11/06/2022 In The 14 Days Before Symptom Onset, Have You Had Close Contact With A Person Who Is Under Investigation For COVID-19 While That Person Was Ill? No [email or web address] Information not available 11/06/2022 Have You Been To An Area Known To Be High Risk For COVID-19? No [email or web address] Information not available 11/06/2022 Are You Deaf Or Do You Have Serious Difficulty Hearing? No [email or web address] Information not available 11/06/2022 Have You Processed Blood Or Body Fluids From An Ebola Virus Disease Patient Without Appropriate PPE? No [email or web address] Information not available 11/06/2022 Do You Reside In Or Have You Traveled To An Area Where Ebola Virus Transmission Is Active? No [email or web address] Information not available 11/06/2022 Have You Recently Or Are You Planning To Travel To An Area With Zika Virus? No [email or web address] Information not available 11/06/2022 What Was The Date Of Your Most Recent Tobacco Screening? 01/27/2025 [email or web address] Information not available 01/27/2025 What Is Your Current Pack Years? 30ormorepack years [email or web address] Information not available 05/10/2022 At What Age Did You Start Smoking Tobacco? 16 [email or web address] Information not available 05/10/2022 How Much Tobacco Do You Smoke? 0.5 PPD [email or web address] Information not available 05/10/2022 Has Tobacco Cessation Counseling Been Provided? Yes [email or web address] Information not available 05/10/2022 On What Date Was Tobacco Cessation Counseling Provided? 01/27/2025 [email or web address] Information not available 01/27/2025 How Many Years Have You Smoked Tobacco? 50 [email or web address] Information not available 07/21/2020 Do You Have Difficulty Walking Or Climbing Stairs? No [email or web address] Information not available 11/06/2022 Sex: Male Functional Status Question Answer Note LastModified by Organizat ion Details LastModified Time Do you or have you ever used any other forms of tobacco or nicotine? No [email or web address] Information not available 05/10/2022 Do you or have you ever used smokeless tobacco? Never used smokeless tobacco [email or web address] Information not available 09/06/2020 Do you have transportation difficulties? No [email or web address] Information not available 11/06/2022 Are you able to walk independently without assistance or assistive devices? YESWOREST Information not available 11/06/2022 Do you have difficulty doing errands alone? No [email or web address] Information not available 11/06/2022 Are you able to care for yourself independently? Yes [email or web address] Information not available 11/06/2022 Do you have difficulty dressing, bathing, grooming, or toileting? No [email or web address] Information not available 11/06/2022 Do you or have you ever used e-cigarettes or vape? Never used electronic cigarettes Information not available 09/06/2020 Mental Status Question Answer Note LastModified by Organization D etails LastModified Time Do you have difficulty concentrating, remembering or making decisions? No [email or web address] Information no t available 11/06/2022 Family History Relationship Description Onset Age of this Age Resolved Age Notes LastModified by Organization Details LastModified Time Mother Heart disease [email or web address] Not available 06/24 09:34:57 Father Carcinoma of [...] ICD10 Code Diagnosis IMO Codes Diagnosis Note [id number] Marycruz Winkler PA-C [address] [address] 01/05/2025 13:47:39 01/05/2025 14:26:04 Chest discomfort [id number] R07.89 03912 none today, improving. Pt had three new stents placed. -improved pt has apt with Dr Gómez next week. Atrial fibrillation 4943 6004 I48.91 [id number] he is on eliquis. he is on metoprolol . -stable per pt. Long-term current use of drug therapy [id number] Z79.830 3271632 chronic conditions are stable. Cigarette smoker 6327978 7 F17.210 489216 went over to stop smoking. gave education about quitting. pt is on wellbutrin . pt has had ct lungs through Dr Tolbert. last Ct was with in the year. He is not using patches that hospital sent home. Pt sees Dr Tolbert. Pt has apt with Dr sutton office now. He has ct chest then. History of myocardial infarction [id number] I25.[id number] gómez started jardiance. pt needs med. [id number] RUDY Mcdowell [address] [address] 01/19/2025 08:32:13 01/19/2025 09:05:39 Atrial fibrillation [id number] I48.91 [id number] he is on eliquis. he is on metoprolol . -stable per pt. pt has apt with dr lopez office today. Pneumonia 659092097 J18. 9 [id number] -improved finish doxy. Type 2 winston betes mellitus without complication 659811687 E11.9 pt is on Farxiga. Pt stop taking the farxiga and we will get a1c today. eye exam due 11/16. pt does not check BS at home. He is now on jardiance as well. He states sugars have been good. Sepsis 49432908 A41.9 9249241092 pt still on doxy. Acute kidney injury 1466 9001 N17.9 400287 we will get bmp in office. push water. [id number] RUDY Mcdowell [address] [address] 01/27/2025 08:34:11 01/27/2025 09:02:04 Atrial fibrillation 19685647 I48.91 08862967 he is on eliquis. he is on metoprolol . -stable per pt. pt had apt with dr lopez office last week. Pneumonia 677659773 J18. 9 [id number] -improved finish doxy. last week chest xray still showed left lobe pneumonia. we added levaquin. He has two more days left. went over to take probitoics . 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 Pt stop taking the farxiga and we will get a1c today. eye exam due 11/16. pt does not check BS at home. He is now on jardiance as well. He states sugars have been good. Sepsis 48466774 A41.9 [id number] pt still on antibiotic s. last week cbc- wbc was ok. we will recheck today in office. Acute kidney injury 1466 9001 N17.9 110544 push water. bmp was ok last week at apt. we will recheck today. Weight decreased 9753197 01 R63.4 63716 pt has had sepsis and pneumonia and heart cath recently and the stress has been a lot. pt states he just has not wanted to eat much. I went over to make sure he take protein shakes. Coronary arteriosclerosis 78850898 I25.10 pt needs refill on nitro. Health Concerns Section Related Observation LastModified by Organization Detai ls LastModified Time None Recorded Concern Status LastModified by Organization Details LastModified Time None Recorded Payers Encounter Date Sequence Insurance Name Policy Number Policy Castro Covered Member ID Castro Member ID Guarantor Name 01/27/2025 1 [facility] (MEDICARE REPLACEMENT/A DVANTAGE - HMO) [id number] Solomon Thurman [id number] Solomon Olman Notes Date Note Type Note Provider Name and Address Organization Details Recorded Time 01/27/2025 text/html Emergency Depart ment Follow-Up RecordReported by Patient Patient is here to f/u on pneumonia and cough. He was in hospital and f/u last visit from this. He has been on doxy. last visit he was to repeat chest xray. We changed him to levaquin due to still having pneumonia. He did not want home health and states he feels stronger. He is not on O2. He states today he is not feeling bad. Cough is pretty much gone per pt. No N/V/F/D. NO wheezing or chest pain. Marycruz Winkler PA-C [address], [place], [address], [place] - [facility] 01/27/2025 08:52:45
--- OUTSIDE RECORDS SUMMARY | 2025-03-07 14:18 | XMS_ITS | Clinical Summary ---
Author Organization [facility] Address [address] [place] [address] Care Team Providers Care Public Policy Professor Name Role Phone Unavailable Primary Care Provider [...] Screening 1957 [facility]-Medicare Annual Wellness (AWV) 1957 [facility]-/Child/Adol SDOH Screenings 1957 [facility]-Obesity Intervention 1963 [facility]- SDOH Screenings 1975 [facility]-Adult SDOH Screenings 1975 [facility]-DTaP,Tdap,and Td Vaccine s (1 - Tdap) 1976 CT Colonography 2002 Colonoscopy 2002 FIT-DNA 2002 FIT 2002 FOBT 2002 Sigmoidoscopy 2002 [facility]-Colorectal Cancer Screening 2002 [facility]-Pneumococcal Vaccine: 50 + Years (1 of 1 - PCV) 2007 [facility]-Zoster Vaccines (1 of 2) 2007 [id number] Vaccine (1 - 20 25-26 season) 2024 [facility]-Influenza Vaccine (#1) 2024 [facility]-RSV Vaccine: 60+ Years o r (1 - 1-dose 75+ series) 2032 HPV Vaccines (No Doses Required) Completed [facility]-HIB Vaccines Aged Out No longer e [...]
--- OUTSIDE RECORDS SUMMARY | 2025-03-07 14:19 | XMS_ITS | Clinical Summary ---
Author Organization [facility] Davie T Address [address] [place] [address] Phone Care Team Providers Care Surveillance Operator Name Role Phone Unavailable Primary Care Provider Unavailabl e Allergies No known active allergies Medications eplerenone (INSPRA) 25 mg Oral Tablet Take 25 mg by mouth daily. Active buPROPion (WELLBUTRIN XL) 150 mg Oral Tablet Sustained Release 24 hrIndications:an xiety with depression Take 150 mg by mouth every morning. Active carvedilol (COREG) 12.5 mg Oral TabletIndication s:left ventricular dysfunction following OR Take 12.5 mg by mouth 2 times [...] obstructive pulmonary disease) (HC C) Hypertension Hyperlipidemia OR (myocardial infarction) (HCC) x2 Peripheral vascular disease sanjay pheral stents CAD (coronary artery disease) mu ltiple stents in heart Arthritis Family History Medical History Relation Name Comments Heart Disease Brother Cancer Father Asthma Mother Heart Disease Mother Relation Name Status Comments Brother Father Mother Social History Tobacco Use Types Packs/Day Years Used Date Smoking Tobacco: Every Day Cigarettes 1 55.1 Started: 01/21/1970 Smokeless Tobacco: Never Tobacco Cessation:Ready [...] this topic Medical Devices Implanted Type Area Ladies Suit Operator Device Identifier Shelf Expiration Date Model / Serial / Lot Patch Vascular Biologic Xenosure 0.8cm X 8cm - [id number] Implanted:Qty: 1 on 01/20/2018 by Delio Lopez DO at [facility] Right: Femoral Artery [employer] 07/17/2023 0.8P8 / / [id number] Procedures Procedure Name Priority Date/Time Associated Diagnosis [...] the T4-T5 disk space. Victorina Mcrae MD [facility] CT ORDERABLES Final Result from Last 3 Months or Most Recently Relevant to Health Maintenance Insurance [employer] PPO Advance Directives For more information, please contact: [phone] * Full Code (Latest Code Status on File) Date Activated Date Inactivated Comments 01/22/2018 12:13 PM 01/22/2018 5:54 PM
--- OUTSIDE RECORDS SUMMARY | 2025-03-07 14:19 | XMS_ITS | Clinical Summary ---
Author Organization [facility] Address [address] [place] [address] Care Team Providers Care Diesel Mechanic Apprentice Name Role Phone Russell Morrison MD Primary [...] SDOH Screening 03/25/2024 COVID-19 Vaccine ( - 2024-2 6 season) 2024 Influenza Vaccine (#1) 2024 HIB [...] patient's age to complete this topic Insurance [facility] MEDICARE ADVANTAGE Care Teams Diesel Mechanic Apprentice Relationship Specialty Start Date End Date Russell Morrison MD [address] [place] [address] PCP - General Family Medicine 05/26/20
--- OUTSIDE RECORDS SUMMARY | 2025-03-07 14:19 | XMS_ITS | Data Portability ---
Author Organization [facility] Address [address] [place] [address] Assessment Encounter Date Assessment Date Assessment LastModified [...] Check List reviewed and printed for patient. [email or web address] Not available 10/29/2024 07:12:52 01/05/2025 01/05/2025 -Medications wer e reviewed and any necessary updates and renewals were made, patient instructed to complete as prescribed. -The potential side effects of medications were discussed. -Counseling was done on care goals and ways to prevent future hospitalizations. -Further treatment per orders listed below. [email or web address] Not available 01/05/2025 13:49:53 01/19/2025 01/19/2025 -Medications wer e reviewed and any necessary updates and renewals were made, patient instructed to complete as prescribed. -The potential side effects of medications were discussed. -Counseling was done on care goals and ways to prevent future hospitalizations. -Further treatment per orders listed below. [email or web address] Not available 01/19/2025 08:40:30 01/27/2025 01/27/2025 -Medications wer e reviewed and any necessary updates and renewals were made, patient instructed to complete as prescribed. -The potential side effects of medications were discussed. -Counseling was done on care goals and ways to prevent future hospitalizations. -Further treatment per orders listed below. Not available 01/27/2025 08:41:10 Plan of Treatment Reminders Order Date Submit Date Provider Last Modified By Organization Details Last Modified Time Details Appointments Tim aviles Patient 20 2025 08:20A M Marycruz Winkler PA-C Not available Not available Not available Lab BMP, serum or plasma 2024 025 [facility], [address], [address], [place], [address], 01/28/2025 08:24:20 CBC w/ auto diff 2024 025 [facility], [address], [address], [place], [address], 01/28/2025 08:24:20 CBC w/ auto diff 2024 025 [facility], [address], [address], [place], [address], 01/20/2025 08:28:22 BMP, serum or plasma 2024 025 [facility], [address], [address], [place], [address], 01/20/2025 08:28:22 CMP, serum or plasma 2024 025 [facility], [address], [address], [place], [address], 10/30/2024 08:23:48 lipid panel, serum 2024 025 [facility], [address], [address], [place], [address], 10/30/2024 08:23:48 microalb umin/cre atinine, mass ratio, urine 2024 025 [facility], [address] [place], [place] [address], [place], [address], 10/29/2024 08:42:14 CBC w/ auto diff 2024 025 [facility], [address], [address], [place], [address], 10/30/2024 08:23:47 HbA1c (hemoglo bin A1c), blood 2024 025 [facility], [address], [address], [place], [address], 10/30/2024 08:23:49 PSA, serum or plasma 2024 025 [facility], [address], [address], [place], [address], 10/30/2024 08:23:49 CBC w/ auto diff 2024 025 [facility], [address], [address], [place], [address], 07/07/2024 09:00:36 Referral cardiolo gist referral 2024 025 INGE [facility], [address] [place], [address], 11/03/2024 09:00:22 cardiolo gist referral 2024 025 INGE Gómez MD, [address] [place] [address] [address], [place], [address], 08/04/2024 12:50:34 Procedures diabetic foot screen (PROC) 2024 025 [email or web address] Not available 11/05/2024 07:33:14 Surgeries None recorded . Imaging XR, chest, 2 view 2024 025 [facility], [address] [place] [address] , [place], [address], 01/27/2025 09:46:57 XR, chest, 2 view 2024 [facility], [address] [place] [address] , [place], [address], 01/20/2025 09:54:59 Medication Orders nitrogly cerin 0.4 mg sublingu al tablet 2024 [facility], [address], [place], [address], 01/27/2025 08:50:52 Jardianc e 10 mg tablet [address] [facility] [address] [facility], [address], [place], [address], 01/05/2025 14:21:00 nitrogly cerin 0.4 mg sublingu al tablet 2024 025 [facility], [address] [place] [address], [place], [address], 07/06/2024 09:05:49 Patient TargetsNo targets recorded. Patient Instructions Encounter Date Encounter Id Patient Instructions Last Modified By Organization Details Last Modified Time 07/06/2024 [id number] Call with change s RTC or ED if symptoms change or worsen Keep next interval checkup Cont. chronic meds as prescribed Chronic conditions are stable Discussed natural and expected course of this diagnosis and need to alert me if symptoms do not follow expected course or if any worsens [email or web address] Not available 07/06/2024 08:03:27 10/29/2024 [id number] advance directives: care instructions Not available 10/29/2024 [...] MEDICATIONS PERSCRIBED Not available 10/29/2024 08:30:56 01/05/2025 [id number] atrial fibrillation: care instructions Not available 01/05/2025 14:21:00 smoking cessatio n counseling, greater than 3 minutes up to 10 minutes* Not available 01/12/2025 09:00:58 CALL W CHANGES RTC OR ED IF SYMPTOMS CHANGE OR WORSEN KEEP NEXT INTERVAL CHECKUP f/u prn Not available 01/05/2025 14:21:27 01/19/2025 [id number] pneumonia: care instructions Not available 01/19/2025 08:55:33 sepsis: care instructions Not available 01/19/2025 08:55:33 type 2 diabetes: care instructions Not available 01/19/2025 08:55:33 atrial fibrillation: care instructions Not available 01/19/2025 08:55:33 acute kidney injury: care instructions Not available 01/19/2025 08:55:33 CALL W CHANGES RTC OR ED IF SYMPTOMS CHANGE OR WORSEN KEEP NEXT INTERVAL CHECKUP Not available 01/19/2025 08:57:23 01/27/2025 [id number] acute kidney injury: care instructions Not available 01/27/2025 08:47:50 pneumonia: care instructions Not available 01/27/2025 08:47:51 sepsis: care instructions Not available 01/27/2025 08:47:51 type 2 diabetes: care instructions Not available 01/27/2025 08:47:51 atrial fibrillation: care instructions Not available 01/27/2025 08:47:51 abnormal weight loss: care instructions Not available 01/27/2025 08:50:50 CALL W CHANGES R TC OR ED IF SYMPTOMS CHANGE OR WORSEN KEEP NEXT INTERVAL CHECKUP Not available 01/27/2025 08:50:57 Reason for Referral [employer]us[employer]er 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 A negat karla Colog uard resul t indic ates a low likel ihood that a color ectal cance r (CRC) or advan kimberlee adeno ma (jazmyne omato us polyp s with more advan kimberlee pre-m align ant featu res) is prese nt. The chanc e that a perso n with a [...] of 10,00 0 indiv idual s at [place] [facility] risk for color ectal cance r [...] asymp tomat ic indiv idual s at [place] ge risk for color ectal cance r. Follo [...] Color ectal Cance r Scree wally: https ://ww w.can cer.o rg/ca ncer/ colon -rect al-ca ncer/ detec tion- diagn osis- stagi ng/ac s-rec ommen datio ns.ht ml.; Jarred RUEDA, Myles carlson CR, Linda WEEKS, Color ectal Cance r Scree wally: Recom menda tions for Physi cians and Patie nts from the [place]. Multi -Soci ety Task Force on Color ectal Cance r Scree wally , Am J Gastr oente rolog y 2017; 112:1 016-1 030. TEST DESCR IPTIO N: [place] site algor ithmi c ahmet sis of [...] years or older , who are at [facility] for color ectal cance r (CRC) . Colog uard has been appro masha for use by the [place]. FDA. The perfo rmanc e of Colog uard was estab lishe d in a cross secti onal study of [facility] adult s aged 50-84 . Colog uard perfo rmanc e in patie nts ages 45 to 49 years was estim ated by sub-g roup ahmet sis of near- age group s. Colon oscop ies perfo rmed for a posit karla resul t may find as the most clini sarkis signi collins t [place] n: color ectal cance r [4.0% ], [...] study of 0 indiv idual s at [facility] risk for color ectal cance r who [...] wing locat ion: www.e xactl abs.c om/re sulmeme . Addit ional descr iptio n of the Colog uard test proce ss, warni ngs and preca ution s can be found at www.c primitivo velásquez.c om. Not Available [facility] [address], [place], [address], 06/12/2024 09:52:17 06/30/19 25 06/30/2024 CBC WITH DIFFE RENTI AL/PL ATELE T WBC 11.8 x10e3 /uL 3.4-10 .8 above high normal Not Available [facility] ([facility]) [address] [place], [address], 06/30/2024 09:34:36 06/30/19 25 06/30/2024 CBC WITH DIFFE RENTI AL/PL ATELE T RBC 4.24 x10e6 /uL 4.14-5 .80 normal Not Available [facility] ([facility]) [address] [place], [address], 06/30/2024 09:34:36 06/30/19 25 06/30/2024 CBC WITH DIFFE RENTI AL/PL ATELE T hemoglobin 13.3 g/dL 13.0-1 7.7 normal Not Available [facility] ([facility]) [address] [place], [address], 06/30/2024 09:34:36 06/30/19 25 06/30/2024 CBC WITH DIFFE RENTI AL/PL ATELE T hematocrit 40.0 % 37.5-5 1.0 normal Not Available [facility] ([facility]) [address] [place], [address], 06/30/2024 09:34:36 06/30/19 25 06/30/2024 CBC WITH DIFFE RENTI AL/PL ATELE T MCV 94 fL 79-97 normal Not Available [facility] ([facility]) [address] [facility], [place], [address], 06/30/2024 09:34:36 06/30/19 25 06/30/2024 CBC WITH DIFFE RENTI AL/PL ATELE T MCH 31.4 pg 26.6-3 3.0 normal Not Available [facility] ([facility]) [address] [facility], [place], [address], 06/30/2024 09:34:36 06/30/19 25 06/30/2024 CBC WITH DIFFE RENTI AL/PL ATELE T MCHC 33.3 g/dL 31.5-3 5.7 normal Not Available [facility] ([facility]) [address] [place], [address], 06/30/2024 09:34:36 06/30/19 25 06/30/2024 CBC WITH DIFFE RENTI AL/PL ATELE T RDW 13.5 % 11.6-1 5.4 Not Available [facility] ([facility]) [address] [place], [address], 06/30/2024 09:34:36 06/30/19 25 06/30/2024 CBC WITH DIFFE RENTI AL/PL ATELE T platelets 254 x10e3 /uL 150-45 0 normal Not Available [facility] ([facility]) [address] [place], [address], 06/30/2024 09:34:36 06/30/19 25 06/30/2024 CBC WITH DIFFE RENTI AL/PL ATELE T neutrophils 73 % not estab. normal Not Available [facility] ([facility]) [address] [place], [address], 06/30/2024 09:34:36 06/30/19 25 06/30/2024 CBC WITH DIFFE RENTI AL/PL ATELE T lymphs 19 % not estab. normal Not Available [facility] ([facility]) [address] [facility] [place], [address], 06/30/2024 09:34:36 06/30/19 25 06/30/2024 CBC WITH DIFFE RENTI AL/PL ATELE T monocytes 7 % not estab. normal Not Available [facility] ([facility]) [address] [facility], [place], [address], 06/30/2024 09:34:36 06/30/19 25 06/30/2024 CBC WITH DIFFE RENTI AL/PL ATELE T eos 1 % not estab. normal Not Available [facility] ([facility]) [address] [place], [address], 06/30/2024 09:34:36 06/30/19 25 06/30/2024 CBC WITH DIFFE RENTI AL/PL ATELE T basos 0 % not estab. normal Not Available [facility] ([facility]) [address] [place], [address], 06/30/2024 09:34:36 06/30/19 25 06/30/2024 CBC WITH DIFFE RENTI AL/PL ATELE T immature cells RESPIRATORY PRACTITIONER Not Available [facility] ([facility]) [address] [place], [address], 06/30/2024 09:34:36 06/30/19 25 06/30/2024 CBC WITH DIFFE RENTI AL/PL ATELE T neutrophils (absolute) 8.5 x10e3 /uL 1.4-7. 0 above high normal Not Available [facility] ([facility]) [address] [place], [address], 06/30/2024 09:34:36 06/30/19 25 06/30/2024 CBC WITH DIFFE RENTI AL/PL ATELE T lymphs (absolute) 2.3 x10e3 /uL 0.7-3. 1 normal Not Available [facility] ([facility]) [address] [place], [address], 06/30/2024 09:34:36 06/30/19 25 06/30/2024 CBC WITH DIFFE RENTI AL/PL ATELE T monocytes(ab solute) 0.9 x10e3 /uL 0.1-0. 9 normal Not Available [facility] ([facility]) [address] [facility], [place], [address], 06/30/2024 09:34:36 06/30/19 25 06/30/2024 CBC WITH DIFFE RENTI AL/PL ATELE T eos (absolute) 0.2 x10e3 /uL 0.0-0. 4 normal Not Available [facility] ([facility]) [address] [place], [address], 06/30/2024 09:34:36 06/30/19 25 06/30/2024 CBC WITH DIFFE RENTI AL/PL ATELE T baso (absolute) 0.0 x10e3 /uL 0.0-0. 2 normal Not Available [facility] ([facility]) [address] [facility], [place], [address], 06/30/2024 09:34:36 06/30/19 25 06/30/2024 CBC WITH DIFFE RENTI AL/PL ATELE T immature granulocytes 0 % not estab. Not Available [facility] ([facility]) [address] [place], [address], 06/30/2024 09:34:36 06/30/19 25 06/30/2024 CBC WITH DIFFE RENTI AL/PL ATELE T immature grans (abs) 0.0 x10e3 /uL 0.0-0. 1 Not Available [facility] ([facility]) [address] [place], [address], 06/30/2024 09:34:36 06/30/19 25 06/30/2024 CBC WITH DIFFE RENTI AL/PL ATELE T NRBC RESPIRATORY PRACTITIONER Not Available [facility] ([facility]) [address] [facility], [place], [address], 06/30/2024 09:34:36 06/30/19 25 06/30/2024 CBC WITH DIFFE DEJAH AL/NAPLOEON [facility] hematology comments: RESPIRATORY PRACTITIONER Not Available [facility] ([facility]) [address] [facility], [place], [address], 06/30/2024 09:34:36 06/30/19 25 06/30/2024 COMP. METAB OLIC PANEL (14) glucose 90 mg/dL 70-99 normal Not Available [facility] ([facility]) [address] [facility] [place], [address], 06/30/2024 09:34:37 06/30/19 25 06/30/2024 COMP. METAB OLIC PANEL (14) BUN 24 mg/dL 8-27 normal Not Available [facility] ([facility]) [address] [facility], [place], [address], 06/30/2024 09:34:37 06/30/19 25 06/30/2024 COMP. METAB OLIC PANEL (14) creatinine 1.47 mg/dL 0.76-1 .27 above high normal Not Available [facility] ([facility]) [address] [facility], [place], [address], 06/30/2024 09:34:37 06/30/19 25 06/30/2024 COMP. METAB OLIC PANEL (14) eGFR 52 mL/mi n/1.7 3 >59 below low normal Not Available [facility] ([facility]) [address] [facility], [place], [address], 06/30/2024 09:34:37 06/30/19 25 06/30/2024 COMP. METAB OLIC PANEL (14) BUN/creatini ne ratio 16 10-24 normal Not Available [facility] ([facility]) [address] [facility] [place], [address], 06/30/2024 09:34:37 06/30/19 25 06/30/2024 COMP. METAB OLIC PANEL (14) sodium 138 mmol/ L 134-14 4 normal Not Available [facility] ([facility]) [address] [facility] [place], [address], 06/30/2024 09:34:37 06/30/19 25 06/30/2024 COMP. METAB OLIC PANEL (14) potassium 4.5 mmol/ L 3.5-5. 2 normal Not Available [facility] ([facility]) [address] [facility] [place], [address], 06/30/2024 09:34:37 06/30/19 25 06/30/2024 COMP. METAB OLIC PANEL (14) chloride 103 mmol/ L 96-106 normal Not Available [facility] ([facility]) [address] [facility] [place], [address], 06/30/2024 09:34:37 06/30/19 25 06/30/2024 COMP. METAB OLIC PANEL (14) carbon dioxide, total 18 mmol/ L 20-29 below low normal Not Available [facility] ([facility]) [address] [facility] [place], [address], 06/30/2024 09:34:37 06/30/19 25 06/30/2024 COMP. METAB OLIC PANEL (14) calcium 9.1 mg/dL 8.6-10 .2 normal Not Available [facility] ([facility]) [address] [facility] [place], [address], 06/30/2024 09:34:37 06/30/19 25 06/30/2024 COMP. METAB OLIC PANEL (14) protein, total 6.9 g/dL 6.0-8. 5 normal Not Available [facility] ([facility]) [address] [facility] [place], [address], 06/30/2024 09:34:37 06/30/19 25 06/30/2024 COMP. METAB OLIC PANEL (14) albumin 4.3 g/dL 3.9-4. 9 normal Not Available [facility] ([facility]) [address] [place], [address], 06/30/2024 09:34:37 06/30/19 25 06/30/2024 COMP. METAB OLIC PANEL (14) globulin, total 2.6 g/dL 1.5-4. 5 Not Available [facility] ([facility]) [address] [place], [address], 06/30/2024 09:34:37 06/30/19 25 06/30/2024 COMP. METAB OLIC PANEL (14) bilirubin, total 0.3 mg/dL 0.0-1. 2 normal Not Available [facility] ([facility]) [address] [place], [address], 06/30/2024 09:34:37 06/30/19 25 06/30/2024 COMP. METAB OLIC PANEL (14) alkaline phosphatase 72 IU/L 44-121 normal Not Available [facility] ([facility]) [address] [place], [address], 06/30/2024 09:34:37 06/30/19 25 06/30/2024 COMP. METAB OLIC PANEL (14) AST (SGOT) 14 IU/L 0-40 normal Not Available [facility] ([facility]) [address] [place], [address], 06/30/2024 09:34:37 06/30/19 25 06/30/2024 COMP. METAB OLIC PANEL (14) ALT (SGPT) 16 IU/L 0-44 normal Not Available [facility] ([facility]) [address] [place], [address], 06/30/2024 09:34:37 06/30/19 25 06/30/2024 EVELIN+L IPASE amylase 38 U/L 31-110 normal Not Available [facility] ([facility]) [address] [facility], [place], [address], 06/30/2024 09:34:38 06/30/19 25 06/30/2024 EVELIN+L IPASE lipase 21 U/L 13-78 normal Not Available [facility] ([facility]) [address] [facility], [place], [address], 06/30/2024 09:34:38 06/30/19 25 06/29/2024 urina lysis , dipst ick Leukocytes Negati ve Not Available [address], [address], 06/29/2024 11:14:37 06/30/19 25 06/29/2024 urina lysis , dipst ick Nitrite negati ve Not Available [address], [address], 06/29/2024 11:14:37 06/30/19 25 06/29/2024 urina lysis , dipst ick Urobilinogen .2 Not Available [address], [address], 06/29/2024 11:14:37 06/30/19 25 06/29/2024 urina lysis , dipst ick Protein Negati ve Not Available [address], [address], 06/29/2024 11:14:37 06/30/19 25 06/29/2024 urina lysis , dipst ick pH 5.5 Not Available [address], [address], 06/29/2024 11:14:37 06/30/19 25 06/29/2024 urina lysis , dipst ick Blood Negati ve Not Available [address], [address], 06/29/2024 11:14:37 06/30/19 25 06/29/2024 urina lysis , dipst ick Specific [place] 1.025 Not Available [facility] [address], [address], 06/29/2024 11:14:37 06/30/19 25 06/29/2024 urina lysis , dipst ick Ketone Negati ve Not Available [address], [address], 06/29/2024 11:14:37 06/30/19 25 06/29/2024 urina lysis , dipst ick Bilirubin Negati ve Not Available [address], [address], 06/29/2024 11:14:37 06/30/19 25 06/29/2024 urina lysis , dipst ick Glucose Negati ve Not Available [address], [address], 06/29/2024 11:14:37 06/30/19 25 06/29/2024 urina lysis , dipst ick Appearance Clear Not Available Ellenrajesh cosme [address], [address], 06/29/2024 11:14:37 06/30/19 25 06/29/2024 urina lysis , dipst ick Color Yellow Not Available [address], [address], 06/29/2024 11:14:37 07/07/19 25 07/07/2024 CBC WITH DIFFE RENTI AL/PL ATELE T WBC 7.8 x10e3 /uL 3.4-10 .8 normal Not Available [facility] ([facility]) [address] [facility], [place], [address], 07/07/2024 09:00:36 07/07/1907/07/2024 CBC WITH DIFFE RENTI AL/PL ATELE T RBC 4.27 x10e6 /uL 4.14-5 .80 normal Not Available [facility] ([facility]) [address] [facility], [place], [address], 07/07/2024 09:00:36 07/07/1907/07/2024 CBC WITH DIFFE RENTI AL/PL ATELE T hemoglobin 13.4 g/dL 13.0-1 7.7 normal Not Available [facility] ([facility]) [address] [facility], [place], [address], 07/07/2024 09:00:36 07/07/1907/07/2024 CBC WITH DIFFE RENTI AL/PL ATELE T hematocrit 40.7 % 37.5-5 1.0 normal Not Available [facility] ([facility]) [address] [place], [address], 07/07/2024 09:00:36 07/07/1907/07/2024 CBC WITH DIFFE RENTI AL/PL ATELE T MCV 95 fL 79-97 normal Not Available [facility] ([facility]) [address] [place], [address], 07/07/2024 09:00:36 07/07/1907/07/2024 CBC WITH DIFFE RENTI AL/PL ATELE T MCH 31.4 pg 26.6-3 3.0 normal Not Available [facility] ([facility]) [address] [place], [address], 07/07/2024 09:00:36 07/07/19 25 07/07/2024 CBC WITH DIFFE RENTI AL/PL ATELE T MCHC 32.9 g/dL 31.5-3 5.7 normal Not Available [facility] ([facility]) [address] [facility], [place], [address], 07/07/2024 09:00:36 07/07/1907/07/2024 CBC WITH DIFFE RENTI AL/PL ATELE T RDW 13.4 % 11.6-1 5.4 Not Available [facility] ([facility]) [address] [facility], [place], [address], 07/07/2024 09:00:36 07/07/19 25 07/07/2024 CBC WITH DIFFE RENTI AL/PL ATELE T platelets 283 x10e3 /uL 150-45 0 normal Not Available [facility] ([facility]) [address] [facility], [place], [address], 07/07/2024 09:00:36 07/07/19 25 07/07/2024 CBC WITH DIFFE RENTI AL/PL ATELE T neutrophils 61 % not estab. normal Not Available [facility] ([facility]) [address] [facility], [place], [address], 07/07/2024 09:00:36 07/07/1907/07/2024 CBC WITH DIFFE RENTI AL/PL ATELE T lymphs 30 % not estab. normal Not Available [facility] ([facility]) [address] [facility], [place], [address], 07/07/2024 09:00:36 07/07/1907/07/2024 CBC WITH DIFFE RENTI AL/PL ATELE T monocytes 7 % not estab. normal Not Available [facility] ([facility]) [address] [facility], [place], [address], 07/07/2024 09:00:36 07/07/19 25 07/07/2024 CBC WITH DIFFE RENTI AL/PL ATELE T eos 2 % not estab. normal Not Available [facility] ([facility]) [address] [facility], [place], [address], 07/07/2024 09:00:36 07/07/1907/07/2024 CBC WITH DIFFE RENTI AL/PL ATELE T basos 0 % not estab. normal Not Available [facility] ([facility]) [address] [facility], [place], [address], 07/07/2024 09:00:36 07/07/1907/07/2024 CBC WITH DIFFE RENTI AL/PL ATELE T immature cells RESPIRATORY PRACTITIONER Not Available [facility] ([facility]) [address] [place], [address], 07/07/2024 09:00:36 07/07/1907/07/2024 CBC WITH DIFFE RENTI AL/PL ATELE T neutrophils (absolute) 4.7 x10e3 /uL 1.4-7. 0 normal Not Available [facility] ([facility]) [address] [place], [address], 07/07/2024 09:00:36 07/07/19 25 07/07/2024 CBC WITH DIFFE RENTI AL/PL ATELE T lymphs (absolute) 2.3 x10e3 /uL 0.7-3. 1 normal Not Available [facility] ([facility]) [address] [place], [address], 07/07/2024 09:00:36 07/07/1907/07/2024 CBC WITH DIFFE RENTI AL/PL ATELE T monocytes(ab solute) 0.5 x10e3 /uL 0.1-0. 9 normal Not Available [facility] ([facility]) [address] [place], [address], 07/07/2024 09:00:36 07/07/19 25 07/07/2024 CBC WITH DIFFE RENTI AL/PL ATELE T eos (absolute) 0.2 x10e3 /uL 0.0-0. 4 normal Not Available [facility] ([facility]) [address] [facility] [place], [address], 07/07/2024 09:00:36 07/07/1907/07/2024 CBC WITH DIFFE RENTI AL/PL ATELE T baso (absolute) 0.0 x10e3 /uL 0.0-0. 2 normal Not Available [facility] ([facility]) [address] [facility], [place], [address], 07/07/2024 09:00:36 07/07/1907/07/2024 CBC WITH DIFFE RENTI AL/PL ATELE T immature granulocytes 0 % not estab. Not Available [facility] ([facility]) [address] [facility], [place], [address], 07/07/2024 09:00:36 07/07/19 25 07/07/2024 CBC WITH DIFFE RENTI AL/PL ATELE T immature grans (abs) 0.0 x10e3 /uL 0.0-0. 1 Not Available [facility] ([facility]) [address] [facility], [place], [address], 07/07/2024 09:00:36 07/07/1907/07/2024 CBC WITH DIFFE RENTI AL/PL ATELE T NRBC RESPIRATORY PRACTITIONER Not Available [facility] ([facility]) [address] [facility], [place], [address], 07/07/2024 09:00:36 07/07/1907/07/2024 CBC WITH DIFFE RENTI AL/PL ATELE T hematology comments: RESPIRATORY PRACTITIONER Not Available [facility] ([facility]) [address] [facility], [place], [address], 07/07/2024 09:00:36 10/30/19 25 10/30/2024 CBC WITH DIFFE RENTI AL/PL ATELE T WBC 7.7 x10e3 /uL 3.4-10 .8 normal Not Available [facility] ([facility]) [address] [facility], [place], [address], 10/30/2024 08:23:47 10/30/19 25 10/30/2024 CBC WITH DIFFE RENTI AL/PL ATELE T RBC 4.34 x10e6 /uL 4.14-5 .80 normal Not Available [facility] ([facility]) [address] [place], [address], 10/30/2024 08:23:47 10/30/19 25 10/30/2024 CBC WITH DIFFE RENTI AL/PL ATELE T hemoglobin 13.6 g/dL 13.0-1 7.7 normal Not Available [facility] ([facility]) [address] [place], [address], 10/30/2024 08:23:47 10/30/19 25 10/30/2024 CBC WITH DIFFE RENTI AL/PL ATELE T hematocrit 43.3 % 37.5-5 1.0 normal Not Available [facility] ([facility]) [address] [place], [address], 10/30/2024 08:23:47 10/30/19 25 10/30/2024 CBC WITH DIFFE RENTI AL/PL ATELE T MCV 100 fL 79-97 above high normal Not Available [facility] ([facility]) [address] [place], [address], 10/30/2024 08:23:47 10/30/19 25 10/30/2024 CBC WITH DIFFE RENTI AL/PL ATELE T MCH 31.3 pg 26.6-3 3.0 normal Not Available [facility] ([facility]) [address] [place], [address], 10/30/2024 08:23:47 10/30/19 25 10/30/2024 CBC WITH DIFFE RENTI AL/PL ATELE T MCHC 31.4 g/dL 31.5-3 5.7 below low normal Not Available [facility] ([facility]) [address] [facility], [place], [address], 10/30/2024 08:23:47 10/30/19 25 10/30/2024 CBC WITH DIFFE RENTI AL/PL ATELE T RDW 13.3 % 11.6-1 5.4 Not Available [facility] ([facility]) [address] [facility], [place], [address], 10/30/2024 08:23:47 10/30/19 25 10/30/2024 CBC WITH DIFFE RENTI AL/PL ATELE T platelets 236 x10e3 /uL 150-45 0 normal Not Available [facility] ([facility]) [address] [facility], [place], [address], 10/30/2024 08:23:47 10/30/19 25 10/30/2024 CBC WITH DIFFE RENTI AL/PL ATELE T neutrophils 60 % not estab. normal Not Available [facility] ([facility]) [address] [facility], [place], [address], 10/30/2024 08:23:47 10/30/19 25 10/30/2024 CBC WITH DIFFE RENTI AL/PL ATELE T lymphs 30 % not estab. normal Not Available [facility] ([facility]) [address] [facility], [place], [address], 10/30/2024 08:23:47 10/30/19 25 10/30/2024 CBC WITH DIFFE RENTI AL/PL ATELE T monocytes 8 % not estab. normal Not Available [facility] ([facility]) [address] [facility], [place], [address], 10/30/2024 08:23:47 10/30/19 25 10/30/2024 CBC WITH DIFFE RENTI AL/PL ATELE T eos 2 % not estab. normal Not Available [facility] ([facility]) [address] [facility], [place], [address], 10/30/2024 08:23:47 10/30/19 25 10/30/2024 CBC WITH DIFFE RENTI AL/PL ATELE T basos 0 % not estab. normal Not Available [facility] ([facility]) [address] [place], [address], 10/30/2024 08:23:47 10/30/19 25 10/30/2024 CBC WITH DIFFE RENTI AL/PL ATELE T immature cells RESPIRATORY PRACTITIONER Not Available [facility] ([facility]) [address] [place], [address], 10/30/2024 08:23:47 10/30/19 25 10/30/2024 CBC WITH DIFFE RENTI AL/PL ATELE T neutrophils (absolute) 4.6 x10e3 /uL 1.4-7. 0 normal Not Available [facility] ([facility]) [address] [place], [address], 10/30/2024 08:23:47 10/30/19 25 10/30/2024 CBC WITH DIFFE RENTI AL/PL ATELE T lymphs (absolute) 2.3 x10e3 /uL 0.7-3. 1 normal Not Available [facility] ([facility]) [address] [place], [address], 10/30/2024 08:23:47 10/30/19 25 10/30/2024 CBC WITH DIFFE RENTI AL/PL ATELE T monocytes(ab solute) 0.6 x10e3 /uL 0.1-0. 9 normal Not Available [facility] ([facility]) [address] [place], [address], 10/30/2024 08:23:47 10/30/19 25 10/30/2024 CBC WITH DIFFE RENTI AL/PL ATELE T eos (absolute) 0.2 x10e3 /uL 0.0-0. 4 normal Not Available [facility] ([facility]) [address] [place], [address], 10/30/2024 08:23:47 10/30/19 25 10/30/2024 CBC WITH DIFFE RENTI AL/PL ATELE T baso (absolute) 0.0 x10e3 /uL 0.0-0. 2 normal Not Available [facility] ([facility]) [address] [facility], [place], [address], 10/30/2024 08:23:47 10/30/19 25 10/30/2024 CBC WITH DIFFE RENTI AL/PL ATELE T immature granulocytes 0 % not estab. Not Available [facility] ([facility]) [address] [facility], [place], [address], 10/30/2024 08:23:47 10/30/19 25 10/30/2024 CBC WITH DIFFE RENTI AL/PL ATELE T immature grans (abs) 0.0 x10e3 /uL 0.0-0. 1 Not Available [facility] ([facility]) [address] [facility], [place], [address], 10/30/2024 08:23:47 10/30/19 25 10/30/2024 CBC WITH DIFFE RENTI AL/PL ATELE T NRBC RESPIRATORY PRACTITIONER Not Available [facility] ([facility]) [address] [facility], [place], [address], 10/30/2024 08:23:47 10/30/19 25 10/30/2024 CBC WITH DIFFE RENTI AL/PL ATELE T hematology comments: RESPIRATORY PRACTITIONER Not Available [facility] ([facility]) [address] [facility], [place], [address], 10/30/2024 08:23:47 10/30/19 25 10/30/2024 COMP. METAB OLIC PANEL (14) glucose 89 mg/dL 70-99 normal Not Available [facility] ([facility]) [address] [facility], [place], [address], 10/30/2024 08:23:48 10/30/19 25 10/30/2024 COMP. METAB OLIC PANEL (14) BUN 18 mg/dL 8-27 normal Not Available [facility] ([facility]) [address] [facility] [place], [address], 10/30/2024 08:23:48 10/30/19 25 10/30/2024 COMP. METAB OLIC PANEL (14) creatinine 1.29 mg/dL 0.76-1 .27 above high normal Not Available [facility] ([facility]) [address] [facility], [place], [address], 10/30/2024 08:23:48 10/30/19 25 10/30/2024 COMP. METAB OLIC PANEL (14) eGFR 61 mL/mi n/1.7 3 >59 normal Not Available [facility] ([facility]) [address] [facility], [place], [address], 10/30/2024 08:23:48 10/30/19 25 10/30/2024 COMP. METAB OLIC PANEL (14) BUN/creatini ne ratio 14 10-24 normal Not Available [facility] ([facility]) [address] [facility], [place], [address], 10/30/2024 08:23:48 10/30/19 25 10/30/2024 COMP. METAB OLIC PANEL (14) sodium 136 mmol/ L 134-14 4 normal Not Available [facility] ([facility]) [address] [place], [address], 10/30/2024 08:23:48 10/30/19 25 10/30/2024 COMP. METAB OLIC PANEL (14) potassium 4.7 mmol/ L 3.5-5. 2 normal Not Available [facility] ([facility]) [address] [facility], [place], [address], 10/30/2024 08:23:48 10/30/19 25 10/30/2024 COMP. METAB OLIC PANEL (14) chloride 100 mmol/ L 96-106 normal Not Available [facility] ([facility]) [address] [facility] [place], [address], 10/30/2024 08:23:48 10/30/19 25 10/30/2024 COMP. METAB OLIC PANEL (14) carbon dioxide, total 21 mmol/ L 20-29 normal Not Available [facility] ([facility]) [address] [facility] [place], [address], 10/30/2024 08:23:48 10/30/19 25 10/30/2024 COMP. METAB OLIC PANEL (14) calcium 9.7 mg/dL 8.6-10 .2 normal Not Available [facility] ([facility]) [address] [facility] [place], [address], 10/30/2024 08:23:48 10/30/19 25 10/30/2024 COMP. METAB OLIC PANEL (14) protein, total 7.1 g/dL 6.0-8. 5 normal Not Available [facility] ([facility]) [address] [facility] [place], [address], 10/30/2024 08:23:48 10/30/19 25 10/30/2024 COMP. METAB OLIC PANEL (14) albumin 4.4 g/dL 3.9-4. 9 normal Not Available [facility] ([facility]) [address] [facility] [place], [address], 10/30/2024 08:23:48 10/30/19 25 10/30/2024 COMP. METAB OLIC PANEL (14) globulin, total 2.7 g/dL 1.5-4. 5 Not Available [facility] ([facility]) [address] [facility] [place], [address], 10/30/2024 08:23:48 10/30/19 25 10/30/2024 COMP. METAB OLIC PANEL (14) bilirubin, total 0.4 mg/dL 0.0-1. 2 normal Not Available [facility] ([facility]) [address] [facility] [place], [address], 10/30/2024 08:23:48 10/30/19 25 10/30/2024 COMP. METAB OLIC PANEL (14) alkaline phosphatase 63 IU/L 44-121 normal Not Available [facility] ([facility]) [address] [facility] [place], [address], 10/30/2024 08:23:48 10/30/19 25 10/30/2024 COMP. METAB OLIC PANEL (14) AST (SGOT) 16 IU/L 0-40 normal Not Available [facility] ([facility]) [address] [facility] [place], [address], 10/30/2024 08:23:48 10/30/19 25 10/30/2024 COMP. METAB OLIC PANEL (14) ALT (SGPT) 14 IU/L 0-44 normal Not Available [facility] ([facility]) [address] [facility] [place], [address], 10/30/2024 08:23:48 10/30/19 25 10/30/2024 LIPID PANEL cholesterol, total 244 mg/dL 100-19 9 above high normal Not Available [facility] ([facility]) [address] [facility] [place], [address], 10/30/2024 08:23:48 10/30/19 25 10/30/2024 LIPID PANEL triglyceride s 193 mg/dL 0-149 above high normal Not Available [facility] ([facility]) [address] [facility] [place], [address], 10/30/2024 08:23:48 10/30/19 25 10/30/2024 LIPID PANEL HDL cholesterol 34 mg/dL >39 below low normal Not Available [facility] ([facility]) [address] [facility] [place], [address], 10/30/2024 08:23:48 10/30/19 25 10/30/2024 LIPID PANEL VLDL cholesterol wen 36 mg/dL 5-40 Not Available [facility] ([facility]) [address] [facility], [place], [address], 10/30/2024 08:23:48 10/30/19 25 10/30/2024 LIPID PANEL LDL chol calc ([facility]) 174 mg/dL 0-99 above high normal Not Available [facility] ([facility]) [address] [facility], [place], [address], 10/30/2024 08:23:48 10/30/19 25 10/30/2024 LIPID PANEL LDL calc comment: RESPIRATORY PRACTITIONER Not Available [facility] ([facility]) [address] [facility], [place], [address], 10/30/2024 08:23:48 10/30/19 25 10/29/2024 PSA TOTAL (REFL EX TO FREE) reflex criteria Commen t The perce nt free PSA is perfo rmed on a refle x basis only when the total PSA is betwe en 4.0 and 10.0 ng/mL . Not Available [facility] ([facility]) [address] [facility], [place], [address], 10/30/2024 08:23:49 10/30/19 25 10/30/2024 PSA TOTAL [...] t be inter prete d as absol chitimacha evide nce of the prese nce or absen ce of bandar johns se. Not Available [facility] ([facility]) [address] [facility], [place], [address], 10/30/2024 08:23:49 10/30/19 25 10/30/2024 HEMOG LOBIN A1C hemoglobin A1C 5.8 % 4.8-5. 6 above high normal Predi abete s: 5.7 - 6.4 Diabe suly: >6.4 Glyce vivi contr ol for adult s with diabe suly: <7.0 Not Available [facility] ([facility]) [address] [facility], [place], [address], 10/30/2024 08:23:49 10/30/19 25 10/29/2024 micro album in/cr eatin ine, mass ratio , urine Microalbumin 10 Not Available [place] [address], [address], 10/29/2024 08:33:05 10/30/19 25 10/29/2024 micro album in/cr eatin ine, mass ratio , urine Creatinine 100 Not Available [place] [address], [address], 10/29/2024 08:33:05 10/30/19 25 10/29/2024 micro album in/cr eatin ine, mass ratio , urine Ratio <30 Not Available [address], [address], 10/29/2024 08:33:05 01/20/20 25 01/20/2025 CBC WITH DIFFE RENTI AL/PL ATELE T WBC 8.3 x10e3 /uL 3.4-10 .8 normal Not Available [facility] ([facility]) [address] [facility], [place], [address], 01/20/2025 08:28:22 01/20/2001/20/2025 CBC WITH DIFFE RENTI AL/PL ATELE T RBC 4.09 x10e6 /uL 4.14-5 .80 below low normal Not Available [facility] ([facility]) [address] [place], [address], 01/20/2025 08:28:22 01/20/2001/20/2025 CBC WITH DIFFE RENTI AL/PL ATELE T hemoglobin 12.4 g/dL 13.0-1 7.7 below low normal Not Available [facility] ([facility]) [address] [place], [address], 01/20/2025 08:28:22 01/20/2001/20/2025 CBC WITH DIFFE RENTI AL/PL ATELE T hematocrit 38.3 % 37.5-5 1.0 normal Not Available [facility] ([facility]) [address] [place], [address], 01/20/2025 08:28:22 01/20/2001/20/2025 CBC WITH DIFFE RENTI AL/PL ATELE T MCV 94 fL 79-97 normal Not Available [facility] ([facility]) [address] [place], [address], 01/20/2025 08:28:22 01/20/2001/20/2025 CBC WITH DIFFE RENTI AL/PL ATELE T MCH 30.3 pg 26.6-3 3.0 normal Not Available [facility] ([facility]) [address] [place], [address], 01/20/2025 08:28:22 01/20/2001/20/2025 CBC WITH DIFFE RENTI AL/PL ATELE T MCHC 32.4 g/dL 31.5-3 5.7 normal Not Available [facility] ([facility]) [address] [place], [address], 01/20/2025 08:28:22 01/20/2001/20/2025 CBC WITH DIFFE RENTI AL/PL ATELE T RDW 13.8 % 11.6-1 5.4 Not Available [facility] ([facility]) [address] [facility], [place], [address], 01/20/2025 08:28:22 01/20/2001/20/2025 CBC WITH DIFFE RENTI AL/PL ATELE T platelets 339 x10e3 /uL 150-45 0 normal Not Available [facility] ([facility]) [address] [facility], [place], [address], 01/20/2025 08:28:22 01/20/2001/20/2025 CBC WITH DIFFE RENTI AL/PL ATELE T neutrophils 57 % not estab. normal Not Available [facility] ([facility]) [address] [facility], [place], [address], 01/20/2025 08:28:22 01/20/2001/20/2025 CBC WITH DIFFE RENTI AL/PL ATELE T lymphs 31 % not estab. normal Not Available [facility] ([facility]) [address] [facility], [place], [address], 01/20/2025 08:28:22 01/20/2001/20/2025 CBC WITH DIFFE RENTI AL/PL ATELE T monocytes 9 % not estab. normal Not Available [facility] ([facility]) [address] [facility], [place], [address], 01/20/2025 08:28:22 01/20/2001/20/2025 CBC WITH DIFFE RENTI AL/PL ATELE T eos 2 % not estab. normal Not Available [facility] ([facility]) [address] [facility], [place], [address], 01/20/2025 08:28:22 01/20/20 25 01/20/2025 CBC WITH DIFFE RENTI AL/PL ATELE T basos 0 % not estab. normal Not Available [facility] ([facility]) [address] [place], [address], 01/20/2025 08:28:22 01/20/20 25 01/20/2025 CBC WITH DIFFE RENTI AL/PL ATELE T immature cells RESPIRATORY PRACTITIONER Not Available [facility] ([facility]) [address] [place], [address], 01/20/2025 08:28:22 01/20/2001/20/2025 CBC WITH DIFFE RENTI AL/PL ATELE T neutrophils (absolute) 4.7 x10e3 /uL 1.4-7. 0 normal Not Available [facility] ([facility]) [address] [place], [address], 01/20/2025 08:28:22 01/20/2001/20/2025 CBC WITH DIFFE RENTI AL/PL ATELE T lymphs (absolute) 2.5 x10e3 /uL 0.7-3. 1 normal Not Available [facility] ([facility]) [address] [place], [address], 01/20/2025 08:28:22 01/20/20 25 01/20/2025 CBC WITH DIFFE RENTI AL/PL ATELE T monocytes(ab solute) 0.8 x10e3 /uL 0.1-0. 9 normal Not Available [facility] ([facility]) [address] [place], [address], 01/20/2025 08:28:22 01/20/20 25 01/20/2025 CBC WITH DIFFE RENTI AL/PL ATELE T eos (absolute) 0.2 x10e3 /uL 0.0-0. 4 normal Not Available [facility] ([facility]) [address] [place], [address], 01/20/2025 08:28:22 01/20/2001/20/2025 CBC WITH DIFFE RENTI AL/PL ATELE T baso (absolute) 0.0 x10e3 /uL 0.0-0. 2 normal Not Available [facility] ([facility]) [address] [facility], [place], [address], 01/20/2025 08:28:22 01/20/2001/20/2025 CBC WITH DIFFE RENTI AL/PL ATELE T immature granulocytes 0 % not estab. Not Available [facility] ([facility]) [address] [facility], [place], [address], 01/20/2025 08:28:22 01/20/2001/20/2025 CBC WITH DIFFE RENTI AL/PL ATELE T immature grans (abs) 0.0 x10e3 /uL 0.0-0. 1 Not Available [facility] ([facility]) [address] [facility], [place], [address], 01/20/2025 08:28:22 01/20/2001/20/2025 CBC WITH DIFFE RENTI AL/PL ATELE T NRBC RESPIRATORY PRACTITIONER Not Available [facility] ([facility]) [address] [facility], [place], [address], 01/20/2025 08:28:22 01/20/2001/20/2025 CBC WITH DIFFE RENTI AL/PL ATELE T hematology comments: RESPIRATORY PRACTITIONER Not Available [facility] ([facility]) [address] [facility], [place], [address], 01/20/2025 08:28:22 01/20/2001/20/2025 BASIC METAB OLIC PANEL (8) glucose 89 mg/dL 70-99 normal Not Available [facility] ([facility]) [address] [facility], [place], [address], 01/20/2025 08:28:22 01/20/2001/20/2025 BASIC METAB OLIC PANEL (8) BUN 20 mg/dL 8-27 normal Not Available [facility] ([facility]) [address] [place], [address], 01/20/2025 08:28:22 01/20/2001/20/2025 BASIC METAB OLIC PANEL (8) creatinine 1.16 mg/dL 0.76-1 .27 normal Not Available [facility] ([facility]) [address] [place], [address], 01/20/2025 08:28:22 01/20/2001/20/2025 BASIC METAB OLIC PANEL (8) eGFR 69 mL/mi n/1.7 3 >59 normal Not Available [facility] ([facility]) [address] [facility], [place], [address], 01/20/2025 08:28:22 01/20/2001/20/2025 BASIC METAB OLIC PANEL (8) BUN/creatini ne ratio 17 10-24 normal Not Available [facility] ([facility]) [address] [place], [address], 01/20/2025 08:28:22 01/20/2001/20/2025 BASIC METAB OLIC PANEL (8) sodium 136 mmol/ L 134-14 4 normal Not Available [facility] ([facility]) [address] [place], [address], 01/20/2025 08:28:22 01/20/2001/20/2025 BASIC METAB OLIC PANEL (8) potassium 4.9 mmol/ L 3.5-5. 2 normal Not Available [facility] ([facility]) [address] [place], [address], 01/20/2025 08:28:22 01/20/2001/20/2025 BASIC METAB OLIC PANEL (8) chloride 100 mmol/ L 96-106 normal Not Available [facility] ([facility]) [address] [facility] [place], [address], 01/20/2025 08:28:22 01/20/20 25 01/20/2025 BASIC METAB OLIC PANEL (8) carbon dioxide, total 21 mmol/ L 20- normal Not Available [facility] ([facility]) [address] [facility] [place], [address], 01/20/2025 08:28:22 01/20/20 25 01/20/2025 BASIC METAB OLIC PANEL (8) calcium 9.5 mg/dL 8.6-10 .2 normal Not Available [facility] ([facility]) [address] [facility] [place], [address], 01/20/2025 08:28:22 01/28/20 25 01/28/2025 CBC WITH DIFFE RENTI AL/PL ATELE T WBC 7.7 x10e3 /uL 3.4-10 .8 normal Not Available [facility] ([facility]) [address] [place], [address], 01/28/2025 08:24:20 01/28/20 25 01/28/2025 CBC WITH DIFFE RENTI AL/PL ATELE T RBC 4.03 x10e6 /uL 4.14-5 .80 below low normal Not Available [facility] ([facility]) [address] [place], [address], 01/28/2025 08:24:20 01/28/20 25 01/28/2025 CBC WITH DIFFE RENTI AL/PL ATELE T hemoglobin 12.1 g/dL 13.0-1 7.7 below low normal Not Available [facility] ([facility]) [address] [place], [address], 01/28/2025 08:24:20 01/28/20 25 01/28/2025 CBC WITH DIFFE RENTI AL/PL ATELE T hematocrit 37.8 % 37.5-5 1.0 normal Not Available [facility] ([facility]) [address] [place], [address], 01/28/2025 08:24:20 01/28/20 25 01/28/2025 CBC WITH DIFFE RENTI AL/PL ATELE T MCV 94 fL 79-97 normal Not Available [facility] ([facility]) [address] [facility], [place], [address], 01/28/2025 08:24:20 01/28/20 25 01/28/2025 CBC WITH DIFFE RENTI AL/PL ATELE T MCH 30.0 pg 26.6-3 3.0 normal Not Available [facility] ([facility]) [address] [facility], [place], [address], 01/28/2025 08:24:20 01/28/20 25 01/28/2025 CBC WITH DIFFE RENTI AL/PL ATELE T MCHC 32.0 g/dL 31.5-3 5.7 normal Not Available [facility] ([facility]) [address] [place], [address], 01/28/2025 08:24:20 01/28/20 25 01/28/2025 CBC WITH DIFFE RENTI AL/PL ATELE T RDW 14.2 % 11.6-1 5.4 Not Available [facility] ([facility]) [address] [place], [address], 01/28/2025 08:24:20 01/28/20 25 01/28/2025 CBC WITH DIFFE RENTI AL/PL ATELE T platelets 308 x10e3 /uL 150-45 0 normal Not Available [facility] ([facility]) [address] [place], [address], 01/28/2025 08:24:20 01/28/20 25 01/28/2025 CBC WITH DIFFE RENTI AL/PL ATELE T neutrophils 65 % not estab. normal Not Available [facility] ([facility]) [address] [facility], [place], [address], 01/28/2025 08:24:20 01/28/20 25 01/28/2025 CBC WITH DIFFE RENTI AL/PL ATELE T lymphs 25 % not estab. normal Not Available [facility] ([facility]) [address] [facility], [place], [address], 01/28/2025 08:24:20 01/28/20 25 01/28/2025 CBC WITH DIFFE RENTI AL/PL ATELE T monocytes 8 % not estab. normal Not Available [facility] ([facility]) [address] [facility], [place], [address], 01/28/2025 08:24:20 01/28/20 25 01/28/2025 CBC WITH DIFFE RENTI AL/PL ATELE T eos 2 % not estab. normal Not Available [facility] ([facility]) [address] [facility] [facility], [place], [address], 01/28/2025 08:24:20 01/28/20 25 01/28/2025 CBC WITH DIFFE RENTI AL/PL ATELE T basos 0 % not estab. normal Not Available [facility] ([facility]) [address] [facility], [place], [address], 01/28/2025 08:24:20 01/28/20 25 01/28/2025 CBC WITH DIFFE RENTI AL/PL ATELE T immature cells RESPIRATORY PRACTITIONER Not Available [facility] ([facility]) [address] [facility], [place], [address], 01/28/2025 08:24:20 01/28/20 25 01/28/2025 CBC WITH DIFFE RENTI AL/PL ATELE T neutrophils (absolute) 5.0 x10e3 /uL 1.4-7. 0 normal Not Available [facility] ([facility]) [address] [place], [address], 01/28/2025 08:24:20 01/28/20 25 01/28/2025 CBC WITH DIFFE RENTI AL/PL ATELE T lymphs (absolute) 1.9 x10e3 /uL 0.7-3. 1 normal Not Available [facility] ([facility]) [address] [facility], [place], [address], 01/28/2025 08:24:20 01/28/20 25 01/28/2025 CBC WITH DIFFE RENTI AL/PL ATELE T monocytes(ab solute) 0.6 x10e3 /uL 0.1-0. 9 normal Not Available [facility] ([facility]) [address] [place], [address], 01/28/2025 08:24:20 01/28/20 25 01/28/2025 CBC WITH DIFFE RENTI AL/PL ATELE T eos (absolute) 0.1 x10e3 /uL 0.0-0. 4 normal Not Available [facility] ([facility]) [address] [place], [address], 01/28/2025 08:24:20 01/28/20 25 01/28/2025 CBC WITH DIFFE RENTI AL/PL ATELE T baso (absolute) 0.0 x10e3 /uL 0.0-0. 2 normal Not Available [facility] ([facility]) [address] [facility], [place], [address], 01/28/2025 08:24:20 01/28/20 25 01/28/2025 CBC WITH DIFFE RENTI AL/PL ATELE T immature granulocytes 0 % not estab. Not Available [facility] ([facility]) [address] [place], [address], 01/28/2025 08:24:20 01/28/20 25 01/28/2025 CBC WITH DIFFE RENTI AL/PL ATELE T immature grans (abs) 0.0 x10e3 /uL 0.0-0. 1 Not Available [facility] ([facility]) [address] [place], [address], 01/28/2025 08:24:20 01/28/20 25 01/28/2025 CBC WITH DIFFE RENTI AL/PL ATELE T NRBC RESPIRATORY PRACTITIONER Not Available [facility] ([facility]) [address] [place], [address], 01/28/2025 08:24:20 01/28/20 25 01/28/2025 CBC WITH DIFFE RENTI AL/PL ATELE T hematology comments: RESPIRATORY PRACTITIONER Not Available [facility] ([facility]) [address] [place], [address], 01/28/2025 08:24:20 01/28/20 25 01/28/2025 BASIC METAB OLIC PANEL (8) glucose 89 mg/dL 70-99 normal Not Available [facility] ([facility]) [address] [place], [address], 01/28/2025 08:24:20 01/28/20 25 01/28/2025 BASIC METAB OLIC PANEL (8) BUN 24 mg/dL 8-27 normal Not Available [facility] ([facility]) [address] [facility] [place], [address], 01/28/2025 08:24:20 01/28/20 25 01/28/2025 BASIC METAB OLIC PANEL (8) creatinine 1.51 mg/dL 0.76-1 .27 above high normal Not Available [facility] ([facility]) [address] [facility] [place], [address], 01/28/2025 08:24:20 01/28/20 25 01/28/2025 BASIC METAB OLIC PANEL (8) eGFR 50 mL/mi n/1.7 3 >59 below low normal Not Available [facility] ([facility]) [address] [facility] [place], [address], 01/28/2025 08:24:20 01/28/20 25 01/28/2025 BASIC METAB OLIC PANEL (8) BUN/creatini ne ratio 16 10-24 normal Not Available [facility] ([facility]) [address] [place], [address], 01/28/2025 08:24:20 01/28/20 25 01/28/2025 BASIC METAB OLIC PANEL (8) sodium 136 mmol/ L 134-14 4 normal Not Available [facility] ([facility]) [address] [facility] [place], [address], 01/28/2025 08:24:20 01/28/20 25 01/28/2025 BASIC METAB OLIC PANEL (8) potassium 4.6 mmol/ L 3.5-5. 2 normal Not Available [facility] ([facility]) [address] [place], [address], 01/28/2025 08:24:20 01/28/20 25 01/28/2025 BASIC METAB OLIC PANEL (8) chloride 101 mmol/ L 96-106 normal Not Available [facility] ([facility]) [address] [place], [address], 01/28/2025 08:24:20 01/28/20 25 01/28/2025 BASIC METAB OLIC PANEL (8) carbon dioxide, total 21 mmol/ L 20-29 normal Not Available [facility] ([facility]) [address] [place], [address], 01/28/2025 08:24:20 01/28/20 25 01/28/2025 BASIC METAB OLIC PANEL (8) calcium 9.6 mg/dL 8.6-10 .2 normal Not Available [facility] ([facility]) [address] [place], [address], 01/28/2025 08:24:20 12/30/19 25 12/29/2024 CT, angio gram, chest , w/wo contr ast No observ ation record ed. [address], [place], [address], 12/30/2024 12:39:22 12/30/1912/29/2024 US, doppl er echoc ardio gram, w/ color flow No observ ation record ed. [address], [place], [address], 12/30/2024 12:39:50 12/30/19 25 11/28/2023 LDCT, chest , for lung cance r scree wally No observ ation record ed. [email or web address] Not Available 2024 10:36:36 01/13/20 25 01/11/2025 elect rocar diogr am No observ ation record ed. [address], [place], [address], 01/20/2025 16:02:27 01/15/20 25 01/09/2025 elect rocar diogr am No observ ation record ed. [address], [place], [address], 01/20/2025 16:02:39 01/21/20 25 XR, chest , 2 view No observ ation record ed. [email or web address] [address] , [place], [address], 01/20/2025 16:05:28 01/28/20 25 XR, chest , 2 view No observ ation record ed. [email or web address] [address] , [place], [address], 01/27/2025 11:03:49 Result Notes None recorded. Problems Name Problem SNOMED Code Status Onset Date Resolution Date Notes Provider Name and Address Organization Details Recorded Time Hypertensive disorder 38949632 Active 2020 Cecil Joseall null, [place] - [facility] 1 07:46:06 Hyperlipidemi a 46316667 Active 2020 Cecil Garland null, [place] - [facility] 1 07:46:17 Chronic obstructive pulmonary disease 68958414 Active 2020 Marycruz Winkler PA-C [address], [place], [address] , [place] - [facility] 1 09:50:44 Anxiety 91375008 Active 2020 Marycruz Winkler PA-C [address], [place], [address] , [place] - [facility] 1 09:51:00 Irregular heart beat 793300842 Active 2020 Marycruz Winkler PA-C [address], [place], [address] , [place] [facility] 1 09:55:07 Bradycardia 30534565 Active 2022 Marycruz Winkler PA-C [address], [place], [address] , [place] - [facility] 3 09:07:29 Type 2 diabetes mellitus without complication 545369760 Active 2023 Marycruz Winkler PA-C [address], [place], [address] , [place] [facility] 4 09:02:02 Left lower quadrant pain 198133899 Active 2024 Marycruz Mcnair PA-C [address], [place], [address] , [place] [facility] 5 11:12:30 Coronary arteriosclero sis 24669159 Active 2024 Marycruz Mcnair PA-C [address], [place], [address] , [place] [facility] 5 09:02:04 Atrial fibrillation 31977774 Active 2024 Katie Del Toro null, [place] - [facility] 5 10:00:33 Problem Notes None recorded. Procedures Surgical History Date Name Laterality Status Provider Name and Address Organization Details Recorded Time 01/28/20 Medication Reconcilliation completed Marycruz Winkler PA-C [address], [place], [address], [place] - [facility] 01/27/2025 08:41:10 01/20/20 25 Medication Reconcilliation completed Cecil MURRAY - [facility] 01/19/2025 08:40:30 01/06/20 25 Medication Reconcilliation completed Cecil MURRAY - [facility] 01/05/2025 13:49:53 10/30/19 25 Advance Care Planning completed Cecil MURRAY - [facility] 10/29/2024 07:12:53 10/30/19 25 Functional Status Assessed completed Cecil MURRAY - [facility] 10/29/2024 07:12:53 04/28/19 25 Nebulizer tx completed Matt Shaffer PA-C [address], [place], [address], [place] - [facility] 04/28/2024 09:15:51 11/07/19 24 Advance Care Planning completed Cecli MURRAY - [facility] 11/07/2023 07:24:50 11/07/19 24 Functional Status Assessed completed Cecil MURRAY - [facility] 11/07/2023 07:24:50 09/24/19 24 Medication Reconcilliation completed Cecil MURRYA - [facility] 09/24/2023 14:08:03 11/07/19 23 Advance [...] Name and Address Organization Details Recorded Time 045364 Product containin g 3-hydroxy -3-methyl glutaryl- coenzyme A reductase inhibitor (product) medicatio n muscle cramps moderate high 11/08/2023 78528 009 SNOMED Cecil [place], [place] - [facility] [...] Vitals Date Recorded Body height Respiratory rate Body temperature Heart rate Oxygen saturation Pain severity - 0-10 verbal numeric rating [Score] - Reported Systolic And Diastolic Provider Name and Address Organization Details Last Updated DateTime 5 170.18 cm 14 /min 98.2 [degF] 70 /min 98 % 0 128/84 mm[Hg] Evelin Juarez [place] - [facility] 5 08:54:25 Date Recorded Body height Respiratory rate Pain severity - 0-10 verbal numeric rating [Score] - Reported Body mass index (BMI) Body weight Body temperature Heart rate Oxygen saturation Systolic And Diastolic Provider Name and Address Organization Details Last Updated DateTime 5 170.18 cm 14 /min 0 36.7 kg/m2 396430. 71 g 97.7 [degF] 69 /min 99 % 130/78 mm[Hg] Singhkatina Garland [place] - [facility] 5 08:20:46 Date Recorded Body height Respiratory rate Pain severity - 0-10 verbal numeric rating [Score] - Reported Body mass index (BMI) Body weight Body temperature Heart rate Oxygen saturation Systolic And Diastolic Provider Name and Address Organization Details Last Updated DateTime 5 170.18 cm 14 /min 0 34.8 kg/m2 640998. 91 g 98.2 [degF] 70 /min 96 % 160/82 mm[Hg] Singhjeanniemariorisa Dada [place] - [facility] 5 13:54:50 Date Recorded Body height Body mass index (BMI) Body weight Body temperature Heart rate Oxygen saturation Pain severity - 0-10 verbal numeric rating [Score] - Reported Systolic And Diastolic Provider Name and Address Organization Details Last Updated DateTime 5 170.18 cm 34.2 kg/m2 36995.2 4 g 97.6 [degF] 72 /min 96 % 0 112/60 mm[Hg] Singhkatina Dada [place] - [facility] 5 08:43:44 Date Recorded Body height Respiratory rate Pain severity - 0-10 verbal numeric rating [Score] - Reported Body mass index (BMI) Body weight Body temperature Heart rate Oxygen saturation Systolic And Diastolic Provider Name and Address Organization Details Last Updated DateTime 5 170.18 cm 14 /min 0 33.6 kg/m2 60624.8 7 g 97.5 [degF] 78 /min 99 % 140/80 mm[Hg] Singhjeanniemariorisa Dada [place] - [facility] 5 08:37:11 Social History Question Answer Notes LastModified by Organizat ion Details LastModified Time Tobacco Smoking Status Current Every Day Smoker Cecil burton [place] - [facility] 07/21/2020 09:35:16 Are You Blind Or Do You Have Difficulty Seeing? No [email or web address] Information n ot available 11/06/2022 In The 14 Days Before Symptom Onset, Have You Had Close Contact With A Laboratory-confirm ed COVID-19 While That Case Was Ill? No [email or web address] Information n ot available 11/06/2022 In The 14 Days Before Symptom Onset, Have You Had Close Contact With A Person Who Is Under Investigation For COVID-19 While That Person Was Ill? No [email or web address] Information not available 11/06/2022 Have You Been To An Area Known To Be High Risk For COVID-19? No [email or web address] Information not available 11/06/2022 Are You Deaf Or Do You Have Serious Difficulty Hearing? No [email or web address] Information not available 11/06/2022 Have You Processed Blood Or Body Fluids From An Ebola Virus Disease Patient Without Appropriate PPE? No [email or web address] Information not available 11/06/2022 Do You Reside In Or Have You Traveled To An Area Where Ebola Virus Transmission Is Active? No [email or web address] Information not available 11/06/2022 Have You Recently Or Are You Planning To Travel To An Area With Zika Virus? No Information not available 11/06/2022 What Was The Date Of Your Most Recent Tobacco Screening? 01/27/2025 [email or web address] Information not available 01/27/2025 What Is Your Current Pack Years? 30ormorepack years [email or web address] Information not available 05/10/2022 At What Age Did You Start Smoking Tobacco? 16 [email or web address] Information not available 05/10/2022 How Much Tobacco Do You Smoke? 0.5 PPD Information not available 05/10/2022 Has Tobacco Cessation Counseling Been Provided? Yes Information not available 05/10/2022 On What Date Was Tobacco Cessation Counseling Provided? 01/27/2025 [email or web address] Information not available 01/27/2025 How Many Years Have You Smoked Tobacco? 50 Information not available 07/21/2020 Do You Have Difficulty Walking Or Climbing Stairs? No Information not available 11/06/2022 Sex: Male Functional Status Question Answer Note LastModified by Organizat ion Details LastModified Time Do you or have you ever used any other forms of tobacco or nicotine? No [email or web address] Information not available 05/10/2022 Do you or have you ever used smokeless tobacco? Never used smokeless tobacco Information not available 09/06/2020 Do you have transportation difficulties? No [email or web address] Information not available 11/06/2022 Are you able to walk independently without assistance or assistive devices? YESWOREST [email or web address] Information not available 11/06/2022 Do you have difficulty doing errands alone? No [email or web address] Information not available 11/06/2022 Are you able to care for yourself independently? Yes Information not available 11/06/2022 Do you have difficulty dressing, bathing, grooming, or toileting? No [email or web address] Information not available 11/06/2022 Do you or have you ever used e-cigarettes or vape? Never used electronic cigarettes [email or web address] Information not available 09/06/2020 Mental Status Question Answer Note LastModified by Organization D etails LastModified Time Do you have difficulty concentrating, remembering or making decisions? No [email or web address] Information no t available 11/06/2022 Family History Relationship Description Onset Age of this Age Resolved Age Notes LastModified by Organization Details LastModified Time Mother Heart disease [email or web address] Not available 06/24 09:34:57 Father Carcinoma of prostate [email or web address] Not available 2020 10:54:14 Medical History Condition Response Allergies/Hayfever N Acne N ADD/ADHD N Alzheimer's Disease N Abnormal PAP N Bedwetting N AIDS/HIV N Acid Reflux (GERD) N Hyperlipidemia Y Abuse/Domestic Violence N Hypertension Y Past Encounters Encounter ID Performer Location Encounter Start Date Encounter Closed Date Diagnosis/Indication Diagnosis SNOMED-CT Code Diagnosis ICD10 Code Diagnosis IMO Codes Diagnosis Note [id number] RUDY Mcdowell [address] [address] 07/21/2020 09:20:19 07/21/2020 09:59:07 Hyperlipidemia 61348879 E78.5 Hypertensive disorder 38 701479 I10 stable Chest pain 55393570 R07. 9 none today, pt has cath tomorrow with Dr Gómez. Pt will get copy of BW for us. Long-term drug therapy 045746697 Z79.899 chronic conditions stable. Anxiety 90931986 F41.9 Chronic ob structive pulmonary disease 46772192 J44.[address] Hendricks. Irregular heart beat 361 227772 R00.8 [id number] Marycruz Winkler PA-C [facility] [address] [address] 09/06/2020 10:53:57 09/06/2020 11:19:41 Anxiety 79263995 F41.9 stable Chronic ob structive pulmonary disease 54018034 J44.[address] Hendricks. pt was to go this week and had to miss. Hyperlipidemia 62464752 E78.5 Hypertensive disorder 38 436756 I10 stable Irregular heart beat 361 549264 R00.8 pt saw cards last with in the year-pt had heart cath. No stent. Dr Gómez. Taking med ication for chronic disease 1327809511 57789 Z79.899 chronic conditions are stable. pt did not need refills. Screening for malignant neoplasm of prostate 841008779 Z12.5 Screening for malignant neoplasm of colon 751157095 Z12.11 pt did 4-[address] limon. [id number] Marycruz Winkler PA-C [facility] [address] [address] 05/12/2021 09:53:40 05/12/2021 10:24:24 Chronic obstructive pulmonary disease 16244354 J44.[address] Hendricks. He has not f/u lately he needs to f/u. Anxiety 76466364 F41.9 stable Hyperlipidemia 70559293 E78.5 we will get lipid in office. Hypertensive disorder 38 914853 I10 stable Irregular heart beat 361 794484 R00.8 pt saw cards last with in the year-pt had heart cath. No stent. Dr Gómez. Screening for malignant neoplasm of colon 149656643 Z12.11 pt did [address] limon per pt General ex amination of patient 528714751 Z00.00 Hyperlipid emia screening 010198556 Z13.220 Screening for malignant neoplasm of prostate 190822485 Z12.5 Endocrine/ metabolic screening 464606899 Z13.228 we will get bmp in office. Exercises education, guidance, and counseling 994139572 Z71.82 went over to exercise 5 days a week for 30 mins a day. Dietary ma nagjonatan surveillance 223209957 Z71.3 Body mass index 30+ - obesity 950007434 Z68.34 34.8 Viral screening 57121262 4 Z11.59 Smoker 63485264 F17.200 went over to stop smoking. gave education about quitting. pt is on wellbutrin . pt has had ct lungs through Dr hendricks. Taking med ication for chronic disease 6842064772 03359 Z79.899 chronic conditions are stable. pt did not need refills. [id number] RUDY Mcdowell [address] [address] 05/17/2021 11:21:04 05/17/2021 11:53:25 Serum creatinine above reference range 947934068 R79.89 Pruritic rash 22745845 L 28.2 Long-term drug therapy 069745212 Z79.899 chronic conditions stable. pt did not need refills today. [id number] RUDY Mcdowell [address] [address] 11/08/2021 08:36:38 11/08/2021 09:18:49 Anxiety 56487063 F41.9 stable Chronic ob structive pulmonary disease 01832206 J44.[address] Hendricks. saw 3 weeks ago. He has Ct scan. Hyperlipidemia 89800454 E78.5 we will get lipid in office. Hypertensive disorder 38 160489 I10 stable, went over to monitor BP. IF stays elevated let our office know. Irregular heart beat 361 849302 R00.8 pt saw cards last with in the year-pt had heart cath. No stent. Dr Gómez. Screening for malignant neoplasm of colon 594069558 Z12.11 pt did [address] limon per pt Body mass index 30+ - obesity 724579868 Z68.34 35.2 Taking med ication for chronic disease 4587847252 16151 Z79.899 chronic conditions are stable. pt did not need refills. Difficulty passing urine 842032383 R39.276 [id number] Marycruz Winkler PA-C [address] [address] 12/05/2021 13:32:02 12/05/2021 14:22:53 COVID-19 752287358 U07.1 pt has had symptoms for over 10 days. He is out of quarantine . test neg in office. Acute sinusitis 02528461 J01.90 push fluids and steam. Long-term drug therapy 746309027 Z79.899 chronic conditions stable. pt did not need refills today. [id number] Rachel Layton APRN [facility] [address] [place] [address] 01/19/2022 09:18:28 01/19/2022 10:05:51 Secondary erectile dysfunction 282738115 N52.1 -discussed daily with additional on demand dose of cialis. advised he can call if he wants to try that and i can send an rx. Benign pro static hyperplasia with outflow obstruction 995652918 N40.1 -would rather do OTC.-encou raged super beta prostate BID x 3-4 months trial. Family his tory of malignant neoplasm of prostate 819396637 Z80.42 -discussed annual screening Hyperlipidemia 41853405 E78.5 -likely contribute s to ED Hypertensive disorder 38 642228 I10 -likely contribute s to ED [id number] Marycruz Winkler PA-C [address] [address] 05/10/2022 08:15:04 05/10/2022 08:40:54 Chronic obstructive pulmonary disease 82116204 J44.[address] Hendricks. He has Ct scan. Pt has seen him with in the last month. Hypertensive disorder 38 042690 I10 stable, went over to monitor BP. IF stays elevated let our office know. Pt saw Dr Gómez. Had test ran. Anxiety 83314471 F41.9 stable Hyperlipidemia 32037578 E78.5 we will get lipid in office. Irregular heart beat 361 804503 R00.8 pt saw cards last with in the year-pt had heart cath. No stent. Dr Gómez. Screening for malignant neoplasm of colon 115326202 Z12.11 pt did cologuard 06/13 in chart. Screening for malignant neoplasm of prostate 438174697 Z12.5 Pt had psa in oct 2021. Body mass index 30+ - obesity 547031017 Z68.35 35.3 Obesity 180676436 E66.9 Echocardio gram abnormal 335591365 R93.1 pt had abn stress test. Pt f/u with cards in 2 weeks. They started new med. they are talking about doing cath. Pt sees Dr Gómez. Pt was there last . Taking med ication for chronic disease 9595952258 08242 Z79.899 chronic conditions are stable. pt did not need refills. [id number] RUDY Mcdowell [facility] [address] [place] [address] 10/22/2022 14:53:26 10/22/2022 15:23:19 Pain of right elbow joint 1322847971 7416346 M25.521 Elbow joint swelling 298 633456 M25.429 rice therapy. Long-term drug therapy 395452290 Z79.899 chronic conditions stable. Pain of right wrist 3169 062901 06976 M25.809 [id number] RUDY Mcdowell [facility] [address] [place] [address] 11/06/2022 08:33:30 11/06/2022 09:31:38 Adult health examination 551656893 Z00.00 Depression screening 171 731967 Z13.31 score 5. Pt states he is ok with wellbutrin . Examinatio n of blood pressure 106662913 Z01.30 stable. Diet education 68720787 Z71.3 went over to eat healthy. Counseling 599529115 Z71 .82 Exercise counseling . Patient encouraged to exercise 30 minutes 5 days a week. At [facility] risk for falls 419644164 Z91.81 STEADI FAST screening score of __6___. went over fall risks with patient. Advance care planning 71 0458640 Z71.89 Finding of body mass index 520286379 E66.9 35.7. Anxiety 76585040 F41.9 stable. Chronic ob structive pulmonary disease 95942390 J44.9 stable per pt. pt has inhaler. Hyperlipidemia 94273035 E78.5 we will get lipid in office. Hypertensive disorder 38 978430 I10 stable, went over to monitor BP. IF stays elevated let our office know. Pt saw Dr Gómez. Had test ran. Irregular heart beat 361 107469 R00.8 pt saw cards last with in the year-pt had heart cath. No stent. Dr Gómez. Screening for malignant neoplasm of colon 742377664 Z12.11 pt did cologuard 06/13 in chart. Screening for malignant neoplasm of prostate 688633589 Z12.5 Pt had psa in oct 2021. Pain of ri ght elbow joint 8083441566 9315202 M25.[address] Rowland he wanted to do surgery and goes back tomorrow. Bradycardia 35375704 R00 .1 pt has pacemaker and fib. Taking med ication for chronic disease 5770001714 36810 Z79.899 chronic conditions are stable. pt did not need refills. [id number] RUDY Mcdowell [address] [address] 12/31/2022 10:14:36 12/31/2022 11:52:41 Headache 51669272 R51.9 psuh fluids. Insect bite - wound 2764 70138 T14.8XXA went over to take probitoics . Long-term drug therapy 296765177 Z79.899 chronic conditions stable. [id number] RUDY Mcdowell [address] [address] 01/07/2023 08:17:51 01/07/2023 08:54:36 Headache 68216635 R51.9 [address] fluids[address] pt had Ct today in office. Insect bite - wound 2764 74336 T14.8XXA improved finish clinda. Long-term drug therapy 480461317 Z79.899 chronic conditions stable. [id number] RUDY Mcdowell [address] [address] 05/09/2023 08:52:20 05/09/2023 09:42:35 Hypertensive disorder 27242566 I10 stable, went over to monitor BP. IF stays elevated let our office know. Pt saw Dr Gómez. Had test ran. Anxiety 66797846 F41.9 stable. Chronic ob structive pulmonary disease 69487341 J44.9 stable per pt. pt has inhaler. pt sees Dr hendricks. Hyperlipidemia 15086283 E78.5 we will get lipid in office. Smoker 66531601 F17.200 went over to stop smoking. gave education about quitting. pt is on wellbutrin . pt has had ct lungs through Dr hendricks. last Ct was with in the year. Bradycardia 29929436 R00 .1 pt has pacemaker and fib. Irregular heart beat 361 780554 R00.8 pt saw cards last with in the year-pt had heart cath. No stent. Dr Gómez. Screening for malignant neoplasm of colon 547043274 Z12.11 pt did cologuard 06/13 in chart. Taking med ication for chronic disease 0244831983 86667 Z79.899 chronic conditions are stable. pt did not need refills. Pruritic rash 10456789 L 28.2 creamed helped gave refill. [id number] Marycruz Winkler PA-C [address] [address] 09/24/2023 14:07:17 09/24/2023 14:28:17 Smoker 20035954 F17.200 went over to stop smoking. gave education about quitting. pt is on wellbutrin . pt has had ct lungs through Dr Hendricks. last Ct was with in the year. He is not using patches that hospital sent home. History of placement of stent for coronary artery disease 509755470 Z95.5 he had two new stents placed. He has total of 18 stents per pt. labs were ok in ann-mraie blacks note. Pt f/u tomorrow. He is on HCTZ now at 12.5 mg. He takes half a 25 mg. Essential hypertension 03869376 I10 pt is now on hctz half a t 25 mg. he is on amlodipine , isosorbide , Metoprolol , olmesartan . went over to push water. Chest pain 20572650 R07. 9 none today, improving. Pt had two new stents placed. Long-term drug therapy 711437954 Z79.899 chronic conditions are stable, pt does not need refills today. [id number] RUDY Mcdowell [address] [address] 11/07/2023 08:32:42 11/07/2023 09:09:42 Adult health examination 329510322 Z00.00 Depression screening 171 623671 Z13.31 A depression screening was completed via a standardiz ed screening tool. 5 minutes were spent discussing depression screening results and risk factors. Scored 0. Examinatio n of blood pressure 836364573 Z01.30 stable. Diet education 76404812 Z71.3 went over to eat healthy. Counseling 087144144 Z71 .82 Exercise counseling . Patient encouraged to exercise 30 minutes 5 days a week. At [facility] ed risk for falls 873434885 Z91.81 STEADI FAST screening score of ___2__. went over fall risks with patient. Advance care planning 71 9670769 Z71.89 Finding of body mass index 590676275 Z68.36 36.6 Smoker 91393580 F17.200 went over to stop smoking. gave education about quitting. pt is on wellbutrin . pt has had ct lungs through Dr Hendricks. last Ct was with in the year. He is not using patches that hospital sent home. Pt sees Dr Hendricks and he will place order for pt to get this. Anxiety 66492187 F41.9 stable. Chronic ob structive pulmonary disease 98735190 J44.9 stable per pt. pt has inhaler. pt sees Dr hendricks. Hyperlipidemia 72787455 E78.5 we will get lipid in office. Hypertensive disorder 38 084588 I10 stable, went over to monitor BP. IF stays elevated let our office know. Pt saw Dr Gómez. Had test ran. Irregular heart beat 361 090236 R00.8 pt saw cards last with in the year-pt had heart cath. No stent. Dr Gómez. Screening for malignant neoplasm of colon 356929876 Z12.11 pt did cologuard 06/13 in chart. Screening for malignant neoplasm of prostate 902376293 Z12.5 Taking med ication for chronic disease 6798614505 73298 Z79.899 chronic conditions are stable. pt did not need refills. Type 2 winston betes mellitus without complication 655002634 E11.9 pt is on Farxiga. [id number] Marycruz Winkler PA-C [place] [id number] 12/11/2023 14:30:34 12/11/2023 15:12:41 Smoker 59440342 F17.200 went over to stop smoking. gave education about quitting. pt is on wellbutrin . pt has had ct lungs through Dr Hendricks. last Ct was with in the year. He is not using patches that hospital sent home. Pt sees Dr Hendricks and he will place order for pt to get this. Left lower quadrant pain 037228348 R10.32 went over moist heat, mild diet. we will treat for diverticul itis just encase. labs last month were ok. [id number] Matt Shaffer PA-C [place] [address] 2 04/28/2024 08:49:43 04/28/2024 09:40:11 Expiratory wheezing 6113063 R06.2 Acute bact erial bronchitis 871382839 J20.9 Dyspnea 431831915 R06.00 Cough 87138854 R05.9 [id number] Matt Shaffer PA-C [place] [address] 2 04/30/2024 11:33:47 04/30/2024 11:48:46 Acute bacterial bronchitis 045539491 J20.9 -IMPROVING Cough 83275623 R05.9 -STABLE Dyspnea 685793743 R06.00 -IMPROVING Expiratory wheezing 9763 007 R06.2 -IMPROVING [id number] Marycruz Winkler PA-C [place] [address] 05/05/2024 08:15:11 05/05/2024 08:42:54 Chronic obstructive pulmonary disease 34348804 J44.9 stable per pt. pt has inhaler. pt sees Dr Hendricks. Type 2 winston betes mellitus without complication 827666887 E11.9 pt is on Farxiga. Pt stop taking the farxiga and we will get a1c today. Hypertensive disorder 38 766787 I10 stable, went over to monitor BP. IF stays elevated let our office know. Pt saw Dr Gómez. Had test ran. He has had 5 stents placed. Anxiety 57434072 F41.9 stable per pt. Hyperlipidemia 67177736 E78.5 we will get lipids in office. Smoker 15393303 F17.200 went over to stop smoking. gave education about quitting. pt is on wellbutrin . pt has had ct lungs through Dr Hendricks. last Ct was with in the year. He is not using patches that hospital sent home. Pt sees Dr Hendricks. Bradycardia 85085041 R00 .1 pt has pacemaker and fib. Irregular heart beat 361 510656 R00.8 pt saw cards last with in the year-pt had heart cath. Dr Gómez. Screening for malignant neoplasm of colon 727814173 Z12.11 pt did cologuard 06/13 in chart. Pt will repeat this year. Body mass index 30+ - obesity 289177901 Z68.36 36 Obesity 421759588 E66.9 Taking med ication for chronic disease 9734968087 80483 Z79.899 chronic conditions are stable. pt did not need refills. Cough 76448907 R05.9 improving on doxy [id number] RUDY Figueroa [address] [address] 06/29/2024 10:36:22 06/29/2024 11:40:14 Left lower quadrant pain 379694800 R10.32 070678 -NewHx of diverticul itis, pt does not want to do ct yet due to cost [id number] RUDY Figueroa [address] [address] 07/06/2024 08:49:34 07/06/2024 09:19:15 Left lower quadrant pain 723510140 R10.32 809101 -NewHx of diverticul itis, pt does not want to do ct yet due to cost Coronary arteriosclerosis 34931770 I25.10 07127 Pt needs refillPt would like to see another cardiologi to discuss his meds [id number] Marycruz Winkler PA-C [address] [address] 10/29/2024 08:09:40 10/29/2024 08:42:43 Adult health examination 734725661 Z00.00 Depression screening 171 166608 Z13.31 A depression screening was completed via a standardiz ed screening tool. 5 minutes were spent discussing depression screening results and risk factors. scored 0. Examinatio n of blood pressure 730931048 Z01.30 stable. Diet education 65520833 Z71.3 went over to eat healthy. Counseling 732438877 Z71 .82 Exercise counseling . Patient encouraged to exercise 30 minutes 5 days a week. At [facility] ed risk for falls 734628027 Z91.81 STEADI FAST screening score of ___3__. went over fall risks with patient. Advance care planning 71 1095176 Z71.89 Cigarette smoker 1657229 7 F17.210 715206 went over to stop smoking. gave education about quitting. pt is on wellbutrin . pt has had ct lungs through Dr Hendricks. last Ct was with in the year. He is not using patches that hospital sent home. Pt sees Dr Hendricks. Pt has apt with Dr sutton office now. He has ct chest then. Anxiety 52958952 F41.9 stable per pt. Bradycardia 35089093 R00 .1 pt has pacemaker and fib. pt sees Dr gómez. Coronary arteriosclerosis 99118465 I25.10 03199 Chronic ob structive pulmonary disease 26410544 J44.9 stable per pt. pt has inhaler. pt sees Dr Hendricks. Hyperlipidemia 45078490 E78.5 we will get lipids in office. Hypertensive disorder 38 704106 I10 stable, went over to monitor BP. IF stays elevated let our office know. Pt saw Dr Gómez. Had test ran. He has had 18 stents placed all together. He has nitro and sees Dr gómez this month. Irregular heart beat 361 460719 R00.8 pt saw cards last with in the year-pt had heart cath. Dr Gómez. Type 2 winston betes mellitus without complication 066935389 E11.9 pt is on Farxiga. Pt stop taking the farxiga and we will get a1c today. eye exam due 11/16. pt does not check BS at home. Screening for malignant neoplasm of colon 523061901 Z12.11 326594 pt did cologuard 06/16 in chart. Prostate s pecific antigen measurement 84838191 Z12.5 269280 Severe obesity 676133963 1 9104 E66.01 Z68.36 7919084379 Heart disease 37419009 I 51.9 84628 Taking med ication for chronic disease 9528816915 00771 Z79.899 chronic conditions are stable. pt did not need refills. he will call [id number] RUDY Mcdowell [address] [address] 01/05/2025 13:47:39 01/05/2025 14:26:04 Chest discomfort 485639145 R07.89 29913 none today, improving. Pt had three new stents placed. -improved pt has apt with Dr Gómez next week. Atrial fibrillation 4943 6004 I48.91 88246790 he is on eliquis. he is on metoprolol . -stable per pt. Long-term current use of drug therapy 252735422 Z79.050 5229966 chronic conditions are stable. Cigarette smoker 4362608 7 F17.210 792597 went over to stop smoking. gave education about quitting. pt is on wellbutrin . pt has had ct lungs through Dr Hendricks. last Ct was with in the year. He is not using patches that hospital sent home. Pt sees Dr Hendricks. Pt has apt with Dr sutton office now. He has ct chest then. History of myocardial infarction 508514721 I25.[address] gómez started jardiance. pt needs med. [id number] RUDY Mcdowell [address] [address] 01/19/2025 08:32:13 01/19/2025 09:05:39 Atrial fibrillation 39839708 I48.91 17792234 he is on eliquis. he is on metoprolol . -stable per pt. pt has apt with dr lpoez office today. Pneumonia 442487830 J18. 9 7897376151 -improved finish doxy. Type 2 winston betes mellitus without complication 857552421 E11.9 pt is on Farxiga. Pt stop taking the farxiga and we will get a1c today. eye exam due 11/16. pt does not check BS at home. He is now on jardiance as well. He states sugars have been good. Sepsis 44818219 A41.9 0690961940 pt still on doxy. Acute kidney injury 1466 9001 N17.9 822882 we will get bmp in office. push water. [id number] Marycruz Winkler PA-C [facility] [address] [place] [address] 01/27/2025 08:34:11 01/27/2025 09:02:04 Atrial fibrillation 64286064 I48.91 13278593 he is on eliquis. he is on metoprolol . -stable per pt. pt had apt with dr lopez office last week. Pneumonia 256842030 J18. 9 2049228671 -improved finish doxy. last week chest xray still showed left lobe pneumonia. we added levaquin. He has two more days left. went over to take probitoics . Type 2 winston betes mellitus without complication 575318460 E11.9 pt is on Farxiga. Pt stop taking the farxiga and we will get a1c today. eye exam due 11/16. pt does not check BS at home. He is now on jardiance as well. He states sugars have been good. Sepsis 63172911 A41.9 5475398572 pt still on antibiotic s. last week cbc- wbc was ok. we will recheck today in office. Acute kidney injury 1466 9001 N17.9 888214 push water. bmp was ok last week at apt. we will recheck today. Weight decreased 4389894 01 R63.4 32521 pt has had sepsis and pneumonia and heart cath recently and the stress has been a lot. pt states he just has not wanted to eat much. I went over to make sure he take protein shakes. Coronary arteriosclerosis 99001813 I25.10 pt needs refill on nitro. Health Concerns Section Related Observation LastModified by Organization Detai ls LastModified Time None Recorded Concern Status LastModified by Organization Details LastModified Time None Recorded Advance Directives Directive None Recorded Payers Insurance Date Sequence Insurance Name Policy Number Policy Castro Covered Member ID Castro Member ID Guarantor Name 11/23/2020 1 UNSPECIFIED REMIT PAYOR Solomon Thurman 01/24/2025 1 [facility] (MEDICARE REPLACEMENT/AD VANTAGE - HMO) [id number] Solomon Thurman [id number] Solomon Thurman 04/28/2024 1 [employer] (MEDICARE REPLACEMENT/AD VANTAGE - PPO) Solomon Thurman [id number] Solomon Thurman 05/31/2021 1 [facility] [place] Estrella Thurman [id number] Solomon Thurman Notes Date Note Type Note Provider Name and Address Organization Details Recorded Time 07/06/2024 text/html ROS as noted in the HPI Pt presents today for a follow up on LLQ pain. pt states he is feeling a lot better today.Denies any more pain He does need a refill on his nitro, he denies current chest pain. 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 Marycruz Mcnair PA-C [facility] [address], [place], [address], [place] - [facility] 07/06/2024 09:08:41 10/29/2024 text/html Medicare [...] exam. Marycruz Winkler PA-C [address], [place], [address], [place] - [facility] 10/29/2024 08:37:48 01/05/2025 text/html Emergency Depart ment Follow-Up RecordReported by Patient Patient is here to f/u on hospital visit with [facility] for chest pain. Patient was admitted and [...] either. Marycruz Winkler PA-C [address], [place], [address], [facility] - [facility] 01/05/2025 14:21:58 01/19/2025 text/html Emergency Depart ment Follow-Up RecordReported [...] health. Marycruz Winkler PA-C [address], [place], [address], [place] - [facility] 01/19/2025 08:58:01 01/27/2025 text/html Emergency Depart [facility] Follow-Up RecordReported by Patient Patient is here [...] pain. Marycruz Winkler PA-C [address], [place], [address], [facility] - [facility] 01/27/2025 08:52:45
--- NOTE | 2025-03-07 14:36 | PC.NURSE ---
urinal provided to patient
[2025-03-07 14:37] LABS: Hematocrit 37.2 % (42.0-52.0); Hemoglobin 12.1 g/dL (14.1-18.0); Immature Granulocytes % 0.7 %; Mean Corpuscular HGB Conc 32.5 g/dL (31.8-35.4); Mean Corpuscular Hemoglobin 29.5 pg (27.0-31.2); Mean Corpuscular Volume 90.7 fl (80-94); Nucleated Red Blood Cells % 0 %; Platelet Count 223 K/mm3 (142-424); Red Blood Count 4.10 M/mm3 (4.60-6.20); Red Cell Distribution Width-SD 51.3 fL; White Blood Count 12.2 K/mm3 (4.8-10.8)
[2025-03-07 14:38] LABS: VBG HCO3 19.8 mmol/L (23-30); VBG PCO2 38.7 mmol/L (35-51); VBG PH 7.33 mmol/L (7.31-7.41); VBG PO2 29.1 mmol/L (28-40)
[2025-03-07 14:41] LABS: Lactate Venous 3.0 mmol/L (0.4-2.0)
[2025-03-07 14:43] LABS: Coronavirus 19, PCR Not Detected (NotDetected); Influenza A, PCR Not Detected (NotDetected); Influenza B, PCR Not Detected (NotDetected)
[2025-03-07] MEDS: ALBUTEROL 0.083% 2.5 MG/3 ML NEB 5 MG IH (14:45)
[2025-03-07] MEDS: ACETAMINOPHEN 500MG TAB 1000 MG PO (14:45)
[2025-03-07] MEDS: 0.9 % SODIUM CHLORIDE 1000ML 1,000 ML 999 ML IV (14:46)
[2025-03-07] MEDS: CEFEPIME HCL 2 GM in 0.9 % SODIUM CHLORIDE 100 ML IV (14:56)
[2025-03-07 14:59] LABS: Albumin Level 4.4 g/dl (3.5-5.0); Chloride 101 mmol/L (98-107)
[2025-03-07 15:00] LABS: Potassium 5.8 mmoL/L (3.5-5.1); Sodium 128 mmol/L (136-145)
[2025-03-07 15:02] LABS: Alanine Aminotransferase 21 U/L (12-78); Anion Gap 13.8 mEq/L (5-15); Aspartate Amino Transferase 62 U/L (17-59); Blood Urea Nitrogen 39 mg/dl (9-20); Carbon Dioxide 19 mmol/L (22.0-30.0); Creatinine Clearance Estimated 45 mL/min (50-200); Creatinine,Serum 2.20 mg/dl (0.66-1.25); Estimated Glomerular Filt Rate 30 ml/min (>60); GFR (African American) 36 ML/MIN (>60)
[2025-03-07 15:03] LABS: Albumin/Globulin Ratio 1.1 (1.1-1.8); Bilirubin,Total 1.2 mg/dl (0.2-1.3); Calcium 8.6 mg/dl (8.4-10.2); Globulin 4.0 g/dL (1.3-3.2); Glucose 134 mg/dl (74-100); Total Protein,Serum 8.4 g/dl (6.3-8.2)
[2025-03-07 15:04] LABS: Alkaline Phosphatase < 20 U/L (38-126)
[2025-03-07 15:12] LABS: NT Pro Brain Natriuretic Pep. 3640 pg/mL (0-125)
[2025-03-07 15:19] LABS: Troponin I 1.78 ng/ml (0.00-0.034)
--- NOTE | 2025-03-07 15:23 | ECG_ITS ---
APPROVED REPORT Exam: Resting ECG HR:86 bpm ECG Measurements Heart Rate 86 AXES CA 160 P 79 QRSd 120 QRS -79 QT 345 T 90 QTc 388 Conclusion SINUS RHYTHM LEFT ANTERIOR FASCICULAR BLOCK [QRS AXIS <= -45, QR IN I, RS IN II] ABNORMAL ECG UNCONFIRMED REPORT Electronically signed by : Rick Vernon MD 03/09/2025 08:42:37
[2025-03-07] MEDS: VANCOMYCIN CONSULT REQUEST 1 EACH NOTAPPLIC (15:36)
[2025-03-07] MEDS: DEXTROSE 50% 50ML SYRINGE (CRASH CART) 25 ML IVP (15:45)
[2025-03-07] MEDS: INSULIN HUMAN REGULAR 100 UNITS/ML 10ML VIAL 5 UNIT IVP (15:45)
--- NOTE | 2025-03-07 15:51 | ED_ITS ---
<Statement entered by Paula Gonzalez DO - 03/07/25 23:51> I was consulted by the ANGELES, and we discussed the complexity of problems being addressed. I approve the treatment and management plan for this patient's care in the emergency department, thus performing a substantial portion of the medical decision making. Paula Gonzalez DO Discharge Plan Disposition Patient Disposition: Admitted Clinical Impressions Clinical Impression: Non-ST elevation [place] (NSTEMI), Sepsis, Acute hyperkalemia, Acute hyponatremia, Fever, Pulmonary embolism Discharge ED Provider: Teodoro Traore General Adult HPI <Teodoro Traore MD - Last Filed: 03/07/25 15:52> General Chief complaint: Shortness of Breath/Dyspnea Stated complaint: fever 100.1, chills Time Seen by Provider: 03/07/25 14:06 Mode of Arrival: Wheelchair Source of Information: Patient Description of Symptoms (Recalled from ER Triage Doc. by RN): pt is here for soa, fever and chills and weakness since yesterday, recently admitted for pneumonia Related Data Home Medications ?Medication ?Instructions ?Recorded ?Confirmed aspirin 81 mg tablet,delayed 81 mg PO DAILY 04/10/17 1 05/08/24 release (Adult Low Dose Aspirin) bupropion HCl 150 mg tablet,12 hr 150 mg PO DAILY 03/2503/07/25 sustained-release fluticasone fur. 100 mcg-umeclid 1 inh inhalation ROSE Y 10/19/21 03/07/25 62.5 mcg-vilant 25 mcg inhalat.powder (Trelegy Ellipta) nitroglycerin 0.4 mg sublingual 0.4 mg sublingual Q5MI [facility] PRN chest 09/17/23 03/07/25 tablet (Nitrostat) pain ranolazine 1,000 mg 1,000 mg PO BID 12/29/24 tablet,extended release,12 hr Previous Rx's ?Medication ?Instructions ?Recorded apixaban 5 mg tablet (Eliquis) 5 mg PO BID #60 tabs clopidogrel 75 mg tablet 75 mg PO DAILY 30 days #30 t abs 12/30/24 metoprolol succinate 100 mg 100 mg PO HS 30 days #30 t abs 12/30/24 tablet,extended release 24 hr empagliflozin 10 mg tablet 10 mg PO DAILY 30 days #30 tabs 01/12/25 (Jardiance) olmesartan 20 mg tablet 20 mg PO DAILY #30 tabs 09/16 isosorbide mononitrate 30 mg 30 mg PO BID #30 tabs 02/16 tablet,extended release 24 hr Allergies Allergy/AdvReac Type Severity Reaction Status Date / Time rosuvastatin (From Crestor) Allergy Mild Back Pain Verified 02/02/25 15:03 <LISA Zepeda - Last Filed: 03/07/25 19:33> History of Present Illness HPI narrative: Patient presents complaining of fever, cough. He has had some shortness of breath as well. Patient subsequently reports that he has had daily chest pain for over a month. He does have a history of coronary artery disease with over 20 stents, pacemaker, A-fib, CHF. He was recently admitted for MRSA bacteremia secondary to pneumonia and a wrist infection. He denies any nasal congestion. MD complaint: Shortness of breath, cough, fever Onset (ago): day(s) Location: chest Radiation: non-radiation Severity: moderate Consistency: constant Relieving factors: none Exacerbating factors: none Associated symptoms: fever/chills PFSH <Teodoro Traore MD - Last Filed: 03/07/25 15:52> PFS Disclaimer: The information contained in this section may have been updated after the patient was seen, as this information can be updated by other users. Medical History (Updated 03/07/25 @ 18:02 by LISA Zepeda) Dizziness Crescendo angina Atypical angina SVT (supraventricular tachycardia) HFrEF (heart failure with reduced ejection fraction) Ventricular tachycardia Impotence Typical angina NYHA Class III cardiovascular function Post-operative complication Gynecomastia HHD (hypertensive heart disease) HLD (hyperlipidemia) CAD (coronary artery disease) Multiple nodules of lung Diastolic heart failure Obesity PAD (peripheral artery disease) Essential hypertension COPD (chronic obstructive pulmonary disease) GERD (gastroesophageal reflux disease) PVC (premature ventricular contraction) Systolic heart failure Tobacco dependence syndrome Surgical History Status post cardiac catheterization History of endarterectomy Family History Other No significant family history Social History (Updated 03/07/25 @ 17:41 by Ellen Flores RN) Smoking Status: Current every day smoker tobacco type: cigarettes packs per day: 1 alcohol intake: never substance use type: denies use current occupational status: unemployed and retired Travel in the last 8 weeks?: None household members: significant other housing: house current occupational exposures/hazards: No caffeine: Yes Have you lived/traveled outside [place] in past 30 days?: No Contact w/someone who lives/traveled outside US past 30 days?: No Exposure to someone with infectious disease in past 14 days?: No Do you have a fever (greater than 100.4 F or 38 C)?: No Have you tested positive for COVID-19?: No Exposed to someone with COVID-19 in past 14 days?: No Do you have a sore throat?: No Do you have a cough?: No Do you have any weakness?: No Are you experiencing any nausea/vomitting?: No Do you have any diarrhea?: No Are you experiencing any unusual bleeding?: No Do you have any muscle aches/pain?: No Do you have any abdominal pain?: No Are you experiencing loss of taste or smell?: No Other Medical History Have you received the Flu Vaccine for this season: No Have you received the Pneumonia Vaccine: No <LISA Zepeda - Last Filed: 03/07/25 19:33> ROS Obtained: Yes Systems reviewed as appropriate & no additional complaints except as documented Physical Exam <LISA Zepeda - Last Filed: 03/07/25 19:33> General General appearance: alert and in no apparent distress Head Head exam: atraumatic and normocephalic Eye Eye exam: Present normal appearance and EOMI Chest Chest inspection: Present symmetric chest wall rise Respiratory Respiratory exam: Present normal lung sounds bilaterally and wheezes; Absent stridor Cardiovascular Cardiovascular exam: Present regular rate and normal rhythm; Absent systolic murmur Extremities Exam Extremities exam: Present full ROM Neurological Exam Neurological exam: Present alert and oriented X3 Psychiatric Psychiatric exam: Present normal affect and normal mood Skin Skin exam: Present warm, dry and intact Medical Decision Making <Teodoro Traore MD - Last Filed: 03/07/25 15:52> Medical Records Screening: Per USPSTF and CDC recommendations, given the prevalence of disease in our region, it is our hospital?s policy to screen for HIV and viral Hepatitis for all patients aged 18 and over and those with ongoing risk factors. Vital Signs: 03/07/25 14:16 03/07/25 14:36 03/07/25 15:02 Temperature 101.4 F H Temperature Source Oral Pulse Rate 95 H Pulse Rate [Left Radial] 95 H Respiratory Rate 29 H 25 H Blood Pressure 129/56 L Blood Pressure [Right Arm] 143/72 H Blood Pressure Mean [Right Arm] 95 02 Sat by Pulse Oximetry 97 97 97 Oxygen Delivery Method Room Air Room Air Room Air 03/07/25 15:50 03/07/25 16:00 03/07/25 16:31 Temperature Temperature Source Pulse Rate 80 83 Pulse Rate [Left Radial] Respiratory Rate 24 24 22 Blood Pressure 119/53 L 115/49 L 110/50 L Blood Pressure [Right Arm] Blood Pressure Mean [Right Arm] 02 Sat by Pulse Oximetry 94 L 94 L Oxygen Delivery Method Room Air 03/07/25 17:12 03/07/25 17:17 03/07/25 17:30 Temperature Temperature Source Pulse Rate 88 83 78 Pulse Rate [Left Radial] Respiratory Rate 25 H 25 H 21 Blood Pressure 133/105 H 128/62 128/59 L Blood Pressure [Right Arm] Blood Pressure Mean [Right Arm] 02 Sat by Pulse Oximetry 98 96 97 Oxygen Delivery Method 03/07/25 17:53 Temperature 98.1 F Temperature Source Pulse Rate 90 Pulse Rate [Left Radial] Respiratory Rate 20 Blood Pressure 125/79 Blood Pressure [Right Arm] Blood Pressure Mean [Right Arm] 02 Sat by Pulse Oximetry Oxygen Delivery Method Room Air Lab Data Lab Results 03/07/25 14:15: SARS-CoV-2 (PCR) Not detected, Influenza Type A (PCR) Not detected, Influenza Type B (PCR) Not detected, RSV (PCR) Not detected, Rhinovirus (PCR) Not detected 03/07/25 14:25: WBC 12.2 H, RBC 4.10 L, Hgb 12.1 L, Hct 37.2 L, MCV 90.7, MCH 29.5, MCHC 32.5, RDW 15.4, Plt Count 223, MPV 9.1, Neut % (Auto) 90.1 H, Lymph % (Auto) 5.8 L, [place] % (Auto) 3.1, Eos % (Auto) 0.1, Baso % (Auto) 0.2, Neut # (Auto) 11.0 H, Lymph # (Auto) 0.7, [place] # (Auto) 0.4, Eos # (Auto) 0.0, Baso # (Auto) 0.0, PT 12.4, INR 1.13 H, APTT 35.5 L 03/07/25 14:25: APTT 35.5 H, VBG pH 7.33, VBG pCO2 38.7, VBG pO2 29.1, VBG HCO3 19.8 L, VBG Total CO2 21.0 L, VBG O2 Saturation 50.8, VBG Base Excess -6.2 L, V BG Lactic Acid 3.0 H, Sodium 128 L, Potassium 5.8 H, Chloride 101, Carbon Dioxide 19 L, Anion Gap 13.8, BUN 39 H, Creatinine 2.20 H, Estimated Creat Clear 45, Estimated GFR 30 L, Est GFR ( Amer) 36 L, Glucose 134 H, Lactate 2.2 H, Calcium 8.6, Total Bilirubin 1.2, AST 62 H, ALT 21, Alkaline Phosphatase < 20 L, Troponin I 1.78 H, NT-Pro-B Natriuret Pep 3640 H, Total Protein 8.4 H D, Albumin 4.4, Globulin 4.0 H, Albumin/Globulin Ratio 1.1 03/07/25 17:10: Troponin I 1.49 H 03/07/25 14:25 03/07/25 14:25 Orders (Tests/Meds): ED MEDICATIONS Generic Name Dose Route Start Last Admin Trade Name Freq PRN Reason Stop Dose Admin Acetaminophen 650 mg 03/07/25 17:09 03/07/25 19:03 Acetaminophen 325mg Tab PO 04/06/25 17:08 650 mg Q4HP PRN Administration Fever or Mild Pain (1-3) Hydrocodone Bitart/Acetaminophen 1 tab 03/07/25 17:09 Hydrocodone/Apap 5/325 Mg Tablet PO 04/06/25 17:08 Q4HP PRN Mild to Moderate Pain (1-6) Albuterol/Ipratropium 3 ml 03/08/25 00:00 Ipratropium/Albuterol 3 Ml Neb IH 04/07/25 00:00 Q6RT [facility] Albuterol/Ipratropium 3 ml 03/07/25 18:44 03/07/25 18:59 Ipratropium/Albuterol 3 Ml Neb IH 03/07/25 18:45 3 ml ONCE ONE Administration Bupropion HCl 150 mg 03/08/25 09:00 Bupropion Hcl Sr 150mg Tab PO 04/07/25 08:59 DAILY [facility] Clopidogrel Bisulfate 75 mg 03/08/25 09:00 Clopidogrel 75mg Tab PO 04/07/25 08:59 DAILY [facility] Fluticasone/Umeclidinium/Vilanterol 1 puff 03/08/25 09:00 Fluticasone/Umeclidin/Vilanter 100/62.5/25mcg Inhaler IH 04/07/25 08:59 DAILY [facility] Lactated Ringer's 500 mls @ 250 mls/hr 03/07/25 17:14 03/07/25 18:17 Lactated Ringer's 1000 Ml Bag IV 03/07/25 19:13 250 mls/hr .Q2H ONE Administration Heparin Sodium/Dextrose 500 mls @ 34 mls/hr 03/07/25 18:45 03/07/25 18:59 Heparin 25,000 Units In D5w 500ml Premix IV 04/06/25 18:44 1,700 units/hr .[id number] EVELIN 34 mls/hr 1,700 UNITS/HR Administration Cefepime HCl 2 gm/ Sodium 100 mls @ 200 mls/hr 03/08/25 02:00 Chloride IV 03/18/25 01:59 Q12H [facility] Irbesartan 150 mg 03/08/25 09:00 Irbesartan 150mg Tab PO 04/07/25 08:59 DAILY [facility] Isosorbide Mononitrate 30 mg 03/07/25 21:00 Isosorbide [place] 30mg Tab.Er.24h PO 04/06/25 20:59 BID [facility] Metoprolol Succinate 100 mg 03/07/25 21:00 Metoprolol Succinate Xl 100mg Tablet PO 04/06/25 20:59 HS [facility]IN Miscellaneous 1 each 03/07/25 14:45 03/07/25 15:36 Vancomycin Consult Request NOTAPPLIC 04/06/25 14:44 1 each CON[facility]ULT PHARMACY [facility] Administration Miscellaneous 1 each 03/07/25 17:45 03/07/25 19:00 Heparin Drip Consult NOTAPPLIC 04/06/25 17:44 1 each [facility]Y [facility] Administration Nitroglycerin 0.4 mg 03/07/25 18:38 Nitroglycerin 0.4mg Sl Tablet SL 04/06/25 18:37 Q5MINP PRN Chest Pain Ranolazine 1,000 mg 03/07/25 21:00 Ranolazine 500mg Er Tablet PO 04/06/25 20:59 BID EVELIN Discontinued Medications Generic Name Dose Route Start Last Admin Trade Name Freq PRN Reason Stop Dose Admin Acetaminophen 1,000 mg 03/07/25 14:35 03/07/25 14:45 Acetaminophen 500mg Tab PO 03/07/25 14:36 1,000 mg ONCE ONE Administration Albuterol Sulfate 5 mg 03/07/25 14:16 03/07/25 14:45 Albuterol 0.083% 2.5 Mg/3 Ml Neb IH 03/07/25 14:17 5 mg ONCE ONE Administration Dextrose 25 ml 03/07/25 15:33 03/07/25 15:45 Dextrose 50% 50ml Syringe (Crash Cart) IVP 03/07/25 15:34 25 ml ONCE ONE Administration Heparin Sodium (Porcine) 7,800 unit 03/07/25 18:45 03/07/25 18:53 Heparin Sodium 5,000 Unit/Ml Vial IV 03/07/25 18:46 7,800 unit ONCE ONE Administration Sodium Chloride 1,000 mls @ 999 mls/hr 03/07/25 14:35 03/07/25 15:54 Sod Chlor 0.9% 1000ml Bag IV 03/07/25 15:35 Infused .Q1H1M ONE Infusion Cefepime HCl 2 gm/ Sodium 100 mls @ 200 mls/hr 03/07/25 14:40 03/07/25 15:30 Chloride IV 03/07/25 15:09 Infused ONCE ONE Infusion Vancomycin/PEG/NADA/Lysine/Water 1.75 gm in 350 mls @ 175 mls/hr 03/07/25 14:45 03/07/25 18:08 Vancomycin 1.75gm/350ml (Peg) Premix IV 03/07/25 16:44 Infused ONCE ONE Infusion Insulin Human Regular 5 unit 03/07/25 15:23 03/07/25 15:45 Insulin Human Regular 100 Units/Ml 10ml Vial IVP 03/07/25 15:24 5 unit ONCE ONE Administration Iopamidol 70 ml 03/07/25 17:07 03/07/25 17:08 Iopamidol-370 (76%);100ml Bottle IV 03/07/25 17:08 70 ml ONCE ONE Administration Nitroglycerin 0.4 mg 03/07/25 17:15 03/07/25 17:21 Nitroglycerin 0.4mg Sl Tablet SL 03/07/25 17:16 0.4 mg ONCE ONE Administration Sodium Chloride 10 ml 03/07/25 17:07 03/07/25 17:08 Sodium Chloride 0.9% 10ml Syr (Rad Only) IV 03/07/25 17:08 10 ml ONCE ONE Administration Sodium Chloride 50 ml 03/07/25 17:07 03/07/25 17:08 0.9 % Sodium Chloride 50 Ml Vial IV 03/07/25 17:08 50 ml ONCE ONE Administration ORDERS Category Date Time Status CTA Chest [CT angio chest PE protocol] Stat Cat Scan 03/07/25 16:32 Completed Cardiology Consult [Consult to Cardiology] [CONS] Cons 03/07/25 17:09 Active Routine XR chest 2V Stat Exams 03/07/25 14:17 Completed BNP [NT Pro Brain Natriuretic Pep.] Stat Lab 03/07/25 14:25 Completed CRP [C-Reactive Protein] AMLAB Lab 03/08/25 06:00 Ordered Complete Blood Count Auto Diff AMLAB Lab 03/08/25 06:00 Ordered Complete Blood Count Auto Diff Stat Lab 03/07/25 14:25 Completed Comprehensive Metabolic Panel AMLAB Lab 03/08/25 06:00 Ordered Comprehensive Metabolic Panel Stat Lab 03/07/25 14:25 Completed Erythrocyte Sedimentation Rate AMLAB Lab 03/08/25 06:00 Ordered Lactic Acid Stat Lab 03/07/25 14:25 Completed Magnesium AMLAB Lab 03/08/25 06:00 Ordered Mini Respiratory Panel Stat Lab 03/07/25 14:15 Completed Trop I [Troponin I] Stat Lab 03/07/25 14:25 Completed Troponin I Q3H Lab 03/07/25 17:10 Completed Troponin I Q3H Lab 03/07/25 20:30 Ordered Urinalysis and Microscopic Stat Lab 03/07/25 18:35 Completed Blood Culture Stat Micro 03/07/25 14:45 Received VBG [Venous Blood Gas] Stat RT 03/07/25 14:25 Completed Medical Decision Narrative: I was consulted by the ANGELES, and we discusssed the complexity of the problems being adressed. I approved the treatment and management plan for this patient's care in the Emergency Department, thus performing a substantive portion of the medical decision making. Teodoro Traore MD <LISA Zepeda - Last Filed: 03/07/25 19:33> [place] Inquiry Pt receiving controlled substance: No Vital Signs: 03/07/25 14:16 03/07/25 14:36 03/07/25 15:02 Temperature 101.4 F H Temperature Source Oral Pulse Rate 95 H Pulse Rate [Left Radial] 95 H Respiratory Rate 29 H 25 H Blood Pressure 129/56 L Blood Pressure [Right Arm] 143/72 H Blood Pressure Mean [Right Arm] 95 02 Sat by Pulse Oximetry 97 97 97 Oxygen Delivery Method Room Air Room Air Room Air 03/07/25 15:50 03/07/25 16:00 03/07/25 16:31 Temperature Temperature Source Pulse Rate 80 83 Pulse Rate [Left Radial] Respiratory Rate 24 24 22 Blood Pressure 119/53 L 115/49 L 110/50 L Blood Pressure [Right Arm] Blood Pressure Mean [Right Arm] 02 Sat by Pulse Oximetry 94 L 94 L Oxygen Delivery Method Room Air 03/07/25 17:12 03/07/25 17:17 03/07/25 17:30 Temperature Temperature Source Pulse Rate 88 83 78 Pulse Rate [Left Radial] Respiratory Rate 25 H 25 H 21 Blood Pressure 133/105 H 128/62 128/59 L Blood Pressure [Right Arm] Blood Pressure Mean [Right Arm] 02 Sat by Pulse Oximetry 98 96 97 Oxygen Delivery Method 03/07/25 17:53 Temperature 98.1 F Temperature Source Pulse Rate 90 Pulse Rate [Left Radial] Respiratory Rate 20 Blood Pressure 125/79 Blood Pressure [Right Arm] Blood Pressure Mean [Right Arm] 02 Sat by Pulse Oximetry Oxygen Delivery Method Room Air Lab Data Lab Results 03/07/25 14:15: SARS-CoV-2 (PCR) Not detected, Influenza Type A (PCR) Not detected, Influenza Type B (PCR) Not detected, RSV (PCR) Not detected, Rhinovirus (PCR) Not detected 03/07/25 14:25: WBC 12.2 H, RBC 4.10 L, Hgb 12.1 L, Hct 37.2 L, MCV 90.7, MCH 29.5, MCHC 32.5, RDW 15.4, Plt Count 223, MPV 9.1, Neut % (Auto) 90.1 H, Lymph % (Auto) 5.8 L, [place] % (Auto) 3.1, Eos % (Auto) 0.1, Baso % (Auto) 0.2, Neut # (Auto) 11.0 H, Lymph # (Auto) 0.7, [place] # (Auto) 0.4, Eos # (Auto) 0.0, Baso # (Auto) 0.0, PT 12.4, INR 1.13 H, APTT 35.5 L 03/07/25 14:25: APTT 35.5 H, VBG pH 7.33, VBG pCO2 38.7, VBG pO2 29.1, VBG HCO3 19.8 L, VBG Total CO2 21.0 L, VBG O2 Saturation 50.8, VBG Base Excess -6.2 L, V BG Lactic Acid 3.0 H, Sodium 128 L, Potassium 5.8 H, Chloride 101, Carbon Dioxide 19 L, Anion Gap 13.8, BUN 39 H, Creatinine 2.20 H, Estimated Creat Clear 45, Estimated GFR 30 L, Est GFR ( Amer) 36 L, Glucose 134 H, Lactate 2.2 H, Calcium 8.6, Total Bilirubin 1.2, AST 62 H, ALT 21, Alkaline Phosphatase < 20 L, Troponin I 1.78 H, NT-Pro-B Natriuret Pep 3640 H, Total Protein 8.4 H D, Albumin 4.4, Globulin 4.0 H, Albumin/Globulin Ratio 1.1 03/07/25 17:10: Troponin I 1.49 H Orders (Tests/Meds): ED MEDICATIONS Generic Name Dose Route Start Last Admin Trade Name Freq PRN Reason Stop Dose Admin Acetaminophen 650 mg 03/07/25 17:09 03/07/25 19:03 Acetaminophen 325mg Tab PO 04/06/25 17:08 650 mg Q4HP PRN Administration Fever or Mild Pain (1-3) Hydrocodone Bitart/Acetaminophen 1 tab 03/07/25 17:09 Hydrocodone/Apap 5/325 Mg Tablet PO 04/06/25 17:08 Q4HP PRN Mild to Moderate Pain (1-6) Albuterol/Ipratropium 3 ml 03/08/25 00:00 Ipratropium/Albuterol 3 Ml [facility] 04/07/25 00:00 Q6RT EVELIN Albuterol/Ipratropium 3 ml 03/07/25 18:44 03/07/25 18:59 Ipratropium/Albuterol 3 Ml [facility] 03/07/25 18:45 3 ml ONCE ONE Administration Bupropion HCl 150 mg 03/08/25 09:00 Bupropion Hcl Sr 150mg Tab PO 04/07/25 08:59 DAILY [facility] Clopidogrel Bisulfate 75 mg 03/08/25 09:00 Clopidogrel 75mg Tab PO 04/07/25 08:59 DAILY [facility] Fluticasone/Umeclidinium/Vilanterol 1 puff 03/08/25 09:00 Fluticasone/Umeclidin/Vilanter 100/62.5/25mcg Inhaler 04/07/25 08:59 DAILY [facility] Lactated Ringer's 500 mls @ 250 mls/hr 03/07/25 17:14 03/07/25 18:17 Lactated Ringer's 1000 Ml Bag IV 03/07/25 19:13 250 mls/hr .Q2H ONE Administration Heparin Sodium/Dextrose 500 mls @ 34 mls/hr 03/07/25 18:45 03/07/25 18:59 Heparin 25,000 Units In D5w 500ml Premix IV 04/06/25 18:44 1,700 units/hr .[id number] EVELIN 34 mls/hr 1,700 UNITS/HR Administration Cefepime HCl 2 gm/ Sodium 100 mls @ 200 mls/hr 03/08/25 02:00 Chloride IV 03/18/25 01:59 Q12H [facility] Irbesartan 150 mg 03/08/25 09:00 Irbesartan 150mg Tab PO 04/07/25 08:59 DAILY [facility] Isosorbide Mononitrate 30 mg 03/07/25 21:00 Isosorbide [place] 30mg Tab.Er.24h PO 04/06/25 20:59 BID [facility] Metoprolol Succinate 100 mg 03/07/25 21:00 Metoprolol Succinate Xl 100mg Tablet PO 04/06/25 20:59 HS EVEL[facility] Miscellaneous 1 each 03/07/25 14:45 03/07/25 15:36 Vancomycin Consult Request [facility] 04/06/25 14:44 1 each CONSULT PHARMACY [facility] Administration Miscellaneous 1 each 03/07/25 17:45 03/07/25 19:00 Heparin Drip Consult [facility] 04/06/25 17:44 1 each [facility]Y [facility] Administration Nitroglycerin 0.4 mg 03/07/25 18:38 Nitroglycerin 0.4mg Sl Tablet SL 04/06/25 18:37 Q5MINP PRN Chest Pain Ranolazine 1,000 mg 03/07/25 21:00 Ranolazine 500mg Er Tablet PO 04/06/25 20:59 BID [facility]EL[facility] Discontinued Medications Generic Name Dose Route Start Last Admin Trade Name Freq PRN Reason Stop Dose Admin Acetaminophen 1,000 mg 03/07/25 14:35 03/07/25 14:45 Acetaminophen 500mg Tab PO 03/07/25 14:36 1,000 mg ONCE ONE Administration Albuterol Sulfate 5 mg 03/07/25 14:16 03/07/25 14:45 Albuterol 0.083% 2.5 Mg/3 Ml Neb IH 03/07/25 14:17 5 mg ONCE ONE Administration Dextrose 25 ml 03/07/25 15:33 03/07/25 15:45 Dextrose 50% 50ml Syringe (Crash Cart) IVP 03/07/25 15:34 25 ml ONCE ONE Administration Heparin Sodium (Porcine) 7,800 unit 03/07/25 18:45 03/07/25 18:53 Heparin Sodium 5,000 Unit/Ml Vial IV 03/07/25 18:46 7,800 unit ONCE ONE Administration Sodium Chloride 1,000 mls @ 999 mls/hr 03/07/25 14:35 03/07/25 15:54 Sod Chlor 0.9% 1000ml Bag IV 03/07/25 15:35 Infused .Q1H1M ONE Infusion Cefepime HCl 2 gm/ Sodium 100 mls @ 200 mls/hr 03/07/25 14:40 03/07/25 15:30 Chloride IV 03/07/25 15:09 Infused ONCE ONE Infusion Vancomycin/PEG/NADA/Lysine/Water 1.75 gm in 350 mls @ 175 mls/hr 03/07/25 14:45 03/07/25 18:08 Vancomycin 1.75gm/350ml (Peg) Premix IV 03/07/25 16:44 Infused ONCE ONE Infusion Insulin Human Regular 5 unit 03/07/25 15:23 03/07/25 15:45 Insulin Human Regular 100 Units/Ml 10ml Vial IVP 03/07/25 15:24 5 unit ONCE ONE Administration Iopamidol 70 ml 03/07/25 17:07 03/07/25 17:08 Iopamidol-370 (76%);100ml Bottle IV 03/07/25 17:08 70 ml ONCE ONE Administration Nitroglycerin 0.4 mg 03/07/25 17:15 03/07/25 17:21 Nitroglycerin 0.4mg Sl Tablet SL 03/07/25 17:16 0.4 mg ONCE ONE Administration Sodium Chloride 10 ml 03/07/25 17:07 03/07/25 17:08 Sodium Chloride 0.9% 10ml Syr (Rad Only) IV 03/07/25 17:08 10 ml ONCE ONE Administration Sodium Chloride 50 ml 03/07/25 17:07 03/07/25 17:08 0.9 % Sodium Chloride 50 Ml Vial IV 03/07/25 17:08 50 ml ONCE ONE Administration ORDERS Category Date Time Status CTA Chest [CT angio chest PE protocol] Stat Cat Scan 03/07/25 16:32 Completed Cardiology Consult [Consult to Cardiology] [CONS] Cons 03/07/25 17:09 Active Routine XR chest 2V Stat Exams 03/07/25 14:17 Completed BNP [NT Pro Brain Natriuretic Pep.] Stat Lab 03/07/25 14:25 Completed CRP [C-Reactive Protein] AMLAB Lab 03/08/25 06:00 Ordered Complete Blood Count Auto Diff AMLAB Lab 03/08/25 06:00 Ordered Complete Blood Count Auto Diff Stat Lab 03/07/25 14:25 Completed Comprehensive Metabolic Panel AMLAB Lab 03/08/25 06:00 Ordered Comprehensive Metabolic Panel Stat Lab 03/07/25 14:25 Completed Erythrocyte Sedimentation Rate AMLAB Lab 03/08/25 06:00 Ordered Lactic Acid Stat Lab 03/07/25 14:25 Completed Magnesium AMLAB Lab 03/08/25 06:00 Ordered Mini Respiratory Panel Stat Lab 03/07/25 14:15 Completed Trop I [Troponin I] Stat Lab 03/07/25 14:25 Completed Troponin I Q3H Lab 03/07/25 17:10 Completed Troponin I Q3H Lab 03/07/25 20:30 Ordered Urinalysis and Microscopic Stat Lab 03/07/25 18:35 Completed Blood Culture Stat Micro 03/07/25 14:45 Received VBG [Venous Blood Gas] Stat RT 03/07/25 14:25 Completed Medical Decision Narrative: In summary patient is a 69-year-old male who presents the emergency department for evaluation of shortness of breath, fever. Patient is hemodynamically stable upon arrival, febrile. Wheezing and diminished breath sounds on exam, as well as tachypnea. Differential diagnosis includes COPD exacerbation, PE, pneumonia, viral illness such as influenza, ACS. Initial workup will be conducted with hematologic labs, troponin, chest x-ray, viral respiratory swab. Initial inventions include IV fluids, albuterol neb, empiric antibiotics for possible sepsis given fever. Initial workup reviewed by me leukocytosis, JANAK, hyponatremia, hyperkalemia. Initially we held off on the CTA chest as patient had an acute kidney injury. However no pneumonia was visible on chest x-ray, CTA was ordered and revealed a pulmonary embolism. Patient also had an NSTEMI with troponin over 1.7. He was given albuterol, insulin and D50 for his hyperkalemia. Upon repeat evaluation patient is resting comfortably. Given this patient admitted to hospital for further management. Heparin drip was started for pulmonary embolism. Critical Care <LISA Zepeda - Last Filed: 03/07/25 19:33> Critical Care Time Critical Care Time: No
[2025-03-07] MEDS: VANCOMYCIN/WATER FOR INJ (PEG) 1.75 GM/350 ML PIGGYBACK IV (15:55)
--- NOTE | 2025-03-07 16:32 | CT_ITS ---
PROCEDURE INFORMATION: Exam: CTA Chest With Contrast Exam date and time: 03/07/2025 5:01 PM Age: 69 years old Clinical indication: Pain; Dyspnea; Other: Cp; Additional info: Chest pain, dyspnea TECHNIQUE: Imaging protocol: Computed tomographic angiography of the chest with contrast. Exam focused on the arteries. 3D rendering (Not supervised by radiologist): MIP and/or 3D reconstructed images were created by the technologist. Radiation optimization: All CT scans at this facility use at least one of these dose optimization techniques: automated exposure control; mA and/or kV adjustment per patient size (includes targeted exams where dose is matched to clinical indication); or iterative reconstruction. Contrast material: ISOVUE; Contrast volume: 70 ml; Contrast route: INTRAVENOUS (IV); COMPARISON: CT ANGIO CHEST PE PROTOCOL 12/30/2024 10:58 PM FINDINGS: Tubes, catheters and devices: Pacemaker in place. Pulmonary arteries: Right lower lobe pulmonary embolus. Lobar. Aorta: Unremarkable. No aortic aneurysm. No aortic dissection. Lungs: Unremarkable. No consolidation. No masses. Pleural spaces: Unremarkable. No pneumothorax. No pleural effusion. Heart: RV/LV ratio is 0.8. No CTA evidence of right heart strain. No cardiomegaly. No pericardial effusion. Lymph nodes: Unremarkable. No enlarged lymph nodes. Bones/joints: Unremarkable. No acute fracture. Soft tissues: Unremarkable. IMPRESSION: 1. Right lower lobe pulmonary embolus. Lobar. 2. RV/LV ratio is 0.8. No CTA evidence of right heart strain.
[2025-03-07] MEDS: SODIUM CHLORIDE 0.9% 10ML SYR (RAD ONLY) 10 ML IV (17:08)
[2025-03-07] MEDS: 0.9 % SODIUM CHLORIDE 50 ML VIAL IV (17:08)
[2025-03-07] MEDS: IOPAMIDOL-370 (76%);100ML BOTTLE 70 ML IV (17:08)
[2025-03-07] MEDS: NITROGLYCERIN 0.4MG SL TABLET 0.4 MG SL (17:21)
[2025-03-07 17:40] LABS: Troponin I 1.49 ng/ml (0.00-0.034)
[2025-03-07 18:14] LABS: PTT Heparin (inpatient only) 35.5 Seconds (50-75)
[2025-03-07] MEDS: LACTATED RINGERS 1000ML 500 ML 250 ML IV (18:17)
[2025-03-07 18:30] LABS: Activated Partial Thrombo Time 35.5 seconds (22.8-30.6); INR 1.13 (0.9-1.1); Prothrombin Time 12.4 seconds (10.1-12.5)
[2025-03-07 18:39] LABS: Bilirubin,Urine Negative (Negative); Color,Urine YELLOW (Yellow); Glucose,Urine (UA) 1+ (Negative); Ketones,Urine Negative (Negative); Leukocyte Esterase,Urine Negative (Negative); Microscopic, Urine URINE MICROSCOPIC (MICROSCOPIC); PH,Urine 5.5 (5.0-8.5); Protein,Urine 1+ (Negative); Specific Gravity, Urine >= 1.030 (1.005-1.030); Urobilinogen,Urine 0.2 EU/dl (0.2)
[2025-03-07 18:41] LABS: Reflex Lactic Add Lactic Reflex
[2025-03-07 18:50] LABS: POC Glucose,Bedside 145 gm/dL (70-110)
[2025-03-07] MEDS: HEPARIN SODIUM 5,000 UNIT/ML VIAL 7800 UNIT IV (18:53)
[2025-03-07] MEDS: IPRATROPIUM/ALBUTEROL 3 ML NEB IH ×2 (18:59→23:39)
[2025-03-07] MEDS: HEPARIN 25,000 UNITS/D5W 500 ML 34 UNIT IV (18:59)
[2025-03-07] MEDS: HEPARIN DRIP CONSULT 1 EACH NOTAPPLIC (19:00)
[2025-03-07] MEDS: ACETAMINOPHEN 325MG TAB 650 MG PO (19:03)
[2025-03-07 19:06] LABS: Bacteria,Urine 1+ /lpf; Squamous Epithelial Cell,Urine Occasional #/hpf (0-5); WBC,Urine Occasional #/hpf (0-3)
[2025-03-07 19:09] LABS: Adenovirus,PCR Not Detected (NotDetected); Chlamydophila Pneumoniae, PCR Not Detected (NotDetected); Coronavirus 19, PCR Not Detected (NotDetected); Coronovirus HKU1,PCR Not Detected (NotDetected); Influenza A, PCR Not Detected (NotDetected); Influenza AH1, 2009 Not Detected (NotDetected); Influenza AH1, PCR Not Detected (NotDetected); Influenza AH3,PCR Not Detected (NotDetected); Influenza B, PCR Not Detected (NotDetected); Mycoplasma Pneumoniae, PCR Not Detected (NotDetected); Parainfluenza 1, PCR Not Detected (NotDetected); Parainfluenza 2, PCR Not Detected (NotDetected); Parainfluenza 3, PCR Not Detected (NotDetected); Parainfluenza 4, PCR Not Detected (NotDetected)
[2025-03-07] MEDS: RANOLAZINE 500MG ER TABLET 1000 MG PO (20:29)
[2025-03-07] MEDS: METOPROLOL SUCCINATE XL 100MG TABLET 100 MG PO (20:30)
[2025-03-07] MEDS: ISOSORBIDE MONO 30MG TAB.ER.24H 30 MG PO (20:30)
--- NOTE | 2025-03-07 21:11 | EXP.HP ---
History of Present Illness *Admission Date: 03/07/25 *Reason for visit:: dyspnea, weakness *History of present illness: Mr. Thurman is a 69-year-old male with history of heart failure with reduced ejection fraction, A-fib, AICD, COPD, tobacco dependence, hyperlipidemia, hypertension, and recent left heart cath on 12/31 with placement of 3 stents. He presented to the ER today with worsening shortness of breath over the past few days. Developed fever today.. States he has been more fatigued. Denies body aches. No nausea or vomiting. No dysuria. No rash. No diarrhea. On arrival to the ER, he was noted to have a white count of 12, kidney function abnormal with a BUN of 39, creatinine 2.2. Up from baseline of 1.0. Fever of 101.4 in the ER. BNP elevated at 3600, potassium 5.8. Stable on room air but tachypneic. Troponin also noted to be elevated at 1.7. No tammy chest pain however. Chest CT performed identifying right lower lobe PE. No focal consolidation or pneumonia. Medicine consulted for admission in the setting of JANAK, NSTEMI, SIRS and PE. I Agreed to admit for further care. He was given albuterol, insulin and D50 for his hyperkalemia in the ER. On evaluation after arriving to the floor, will initiate 500 cc of LR over 2 hours due to JANAK and SIRS status. Also start heparin drip for PE. Patient reports compliance with Eliquis twice daily. Second troponin improved 1.4. No ischemic changes on EKG. placed on oxygen for comfort. [facility] Disclaimer: The information contained in this section may have been updated after the patient was seen, as this information can be updated by other users. Medical History Dizziness Crescendo angina Atypical angina SVT (supraventricular tachycardia) HFrEF (heart failure with reduced ejection fraction) Ventricular tachycardia Impotence Typical angina NYHA Class III cardiovascular function Post-operative complication Gynecomastia HHD (hypertensive heart disease) HLD (hyperlipidemia) CAD (coronary artery disease) Multiple nodules of lung Diastolic heart failure Obesity PAD (peripheral artery disease) Essential hypertension COPD (chronic obstructive pulmonary disease) GERD (gastroesophageal reflux disease) PVC (premature ventricular contraction) Systolic heart failure Tobacco dependence syndrome Surgical History Status post cardiac catheterization History of endarterectomy Family History No significant family history Social History Smoking Status: Current every day smoker tobacco type: cigarettes packs per day: 1 alcohol intake: never substance use type: denies use current occupational status: unemployed and retired Travel in the last 8 weeks?: None household members: significant other housing: house current occupational exposures/hazards: No caffeine: Yes Have you lived/traveled outside [place] in past 30 days?: No Contact w/someone who lives/traveled outside US past 30 days?: No Exposure to someone with infectious disease in past 14 days?: No Do you have a fever (greater than 100.4 F or 38 C)?: No Have you tested positive for COVID-19?: No Exposed to someone with COVID-19 in past 14 days?: No Do you have a sore throat?: No Do you have a cough?: No Do you have any weakness?: No Are you experiencing any nausea/vomitting?: No Do you have any diarrhea?: No Are you experiencing any unusual bleeding?: No Do you have any muscle aches/pain?: No Do you have any abdominal pain?: No Are you experiencing loss of taste or smell?: No Other Medical History Have you received the Flu Vaccine for this season: No Have you received the Pneumonia Vaccine: No Review of Systems Review of Systems Review of systems (narrative): 14 point review of systems performed, pertinent positives and negatives as per HPI Meds Home Medications and Allergies Home Medications ?Medication ?Instructions ?Recorded ?Confirmed ?Type aspirin 81 mg tablet,delayed 81 mg PO DAILY 04/10/17 03/07/25 History release (Adult Low Dose Aspirin) bupropion HCl 150 mg tablet,12 hr 150 mg PO DAILY 04/10/17 03/07/25 History sustained-release fluticasone fur. 100 mcg-umeclid 1 inh inhalation DAILY 10/19/21 03/07/25 History 62.5 mcg-vilant 25 mcg inhalat.powder (Trelegy Ellipta) nitroglycerin 0.4 mg sublingual 0.4 mg sublingual Q5MINP PRN chest 09/17/23 03/07/25 History tablet (Nitrostat) pain ranolazine 1,000 mg 1,000 mg PO BID 12/29/24 03/07/25 History tablet,extended release,12 hr apixaban 5 mg tablet (Eliquis) 5 mg PO BID #60 tabs 12/30/24 03/07/25 Rx clopidogrel 75 mg tablet 75 mg PO DAILY 30 days #30 tabs 12/30/24 03/07/25 Rx metoprolol succinate 100 mg 100 mg PO HS 30 days #30 tabs 12/30/24 03/07/25 Rx tablet,extended release 24 hr empagliflozin 10 mg tablet 10 mg PO DAILY 30 days #30 tabs 01/12/25 03/07/25 Rx (Jardiance) olmesartan 20 mg tablet 20 mg PO DAILY #30 tabs 01/28/25 03/07/25 Rx isosorbide mononitrate 30 mg 30 mg PO BID #30 tabs 02/02/25 03/07/25 Rx tablet,extended release 24 hr New Prescriptions to Start Prescriptions: Allergies Allergy/AdvReac Type Severity Reaction Status Date / Time rosuvastatin (From Crestor) Allergy Mild Back Pain Verified 02/02/25 15:03 Exam Data for Last 24 hours Vital signs and Labs for Last 24 Hours: Temp Pulse Resp BP Pulse Ox O2 Del Method O2 Flow Rate 100.6 F H 113 H 18 148/66 H 98 Nasal Cannula 2 03/07/25 19:58 03/07/25 19:58 03/07/25 19:58 03/07/25 19:58 03/07/25 19:58 03/07/25 20:00 03/07/25 20:00 Laboratory Results - last 24 hr 03/07/25 14:15: SARS-CoV-2 (PCR) Not detected, Influenza Type A (PCR) Not detected, Influenza Type B (PCR) Not detected, RSV (PCR) Not detected, Rhinovirus (PCR) Not detected 03/07/25 14:25: WBC 12.2 H, RBC 4.10 L, Hgb 12.1 L, Hct 37.2 L, MCV 90.7, MCH 29.5, MCHC 32.5, RDW 15.4, Plt Count 223, MPV 9.1, Neut % (Auto) 90.1 H, Lymph % (Auto) 5.8 L, [place] % (Auto) 3.1, Eos % (Auto) 0.1, Baso % (Auto) 0.2, Neut # (Auto) 11.0 H, Lymph # (Auto) 0.7, [place] # (Auto) 0.4, Eos # (Auto) 0.0, Baso # (Auto) 0.0, PT 12.4, INR 1.13 H, APTT 35.5 L 03/07/25 14:25: APTT 35.5 H, VBG pH 7.33, VBG pCO2 38.7, VBG pO2 29.1, VBG HCO3 19.8 L, VBG Total CO2 21.0 L, VBG O2 Saturation 50.8, VBG Base Excess -6.2 L, VBG Lactic Acid 3.0 H, Sodium 128 L, Potassium 5.8 H, Chloride 101, Carbon Dioxide 19 L, Anion Gap 13.8, BUN 39 H, Creatinine 2.20 H, Estimated Creat Clear 45, Estimated GFR 30 L, Est GFR ( Amer) 36 L, Glucose 134 H, Lactate 2.2 H, Calcium 8.6, Total Bilirubin 1.2, AST 62 H, ALT 21, Alkaline Phosphatase < 20 L, Troponin I 1.78 H, NT-Pro-B Natriuret Pep 3640 H, Total Protein 8.4 H D, Albumin 4.4, Globulin 4.0 H, Albumin/Globulin Ratio 1.1 03/07/25 17:10: Troponin I 1.49 H 03/07/25 18:35: Urine Color Yellow, Urine Appearance Clear, Urine pH 5.5, Ur Specific [place] >= 1.030, Urine Protein 1+ A, Urine Glucose (UA) 1+, Urine Ketones Negative, Urine Blood Negative, Urine Nitrate Negative, Urine Bilirubin Negative, Urine Urobilinogen 0.2, Ur Leukocyte Esterase Negative, Urine RBC 3-5, Urine WBC Occasional, Ur Squamous Epith Cells Occasional, Urine Bacteria 1+, Hyaline Casts 3-5 03/07/25 18:43: POC Glucose 145 H 03/07/25 19:05: Chlamy pneumoniae PCR Not detected, Adenovirus (PCR) Not detected, B. pertussis DNA (PCR) Not detected, Coronavirus OC43 (PCR) Not detected, Coronavirus HKU1 (PCR) Not detected, Coronavirus 229E (PCR) Not detected, SARS-CoV-2 (PCR) Not detected, Coronavirus NL63 (PCR) Not detected, Human Metapneumovir PCR Not detected, Influenza A (H1) PCR Not detected, Influ A (H1N1/09) PCR Not detected, Influenza A (H3) PCR Not detected, Influenza Type A (PCR) Not detected, Influenza Type B (PCR) Not detected, M. pneumoniae (PCR) Not detected, Parainfluenza 1 (PCR) Not detected, Parainfluenza 2 (PCR) Not detected, Parainfluenza 3 (PCR) Not detected, Parainfluenza 4 (PCR) Not detected, RSV (PCR) Not detected, Entero/Rhino (PCR) Not detected I & O for Last 24 hours: Intake & Output 03/04/25 03/05/25 03/06/25 03/07/25 23:59 23:59 23:59 23:59 Intake Total 1949 Balance 1949 Weight 98.203 kg Constitutional Constitutional: mild distress, obese, chronically ill appearing and cooperative *Routine HEENT Exam Head: Present normocephalic and atraumatic Eye: Present EOMI and PERRL ENT: Present mucous membranes moist *Routine Neck Exam Neck: Present supple, full ROM and trachea midline *Routine Respiratory Exam Respiratory: Present prolonged expiratory phase, rhonchi, wheezes, normal respiratory effort and symmetric chest movement; Absent crackles *Routine Cardiovascular Exam Cardiovascular: Present Normal S1, Normal S2 and irregularly irregular *Routine Abdominal Exam Abdominal: Present soft, normoactive bowel sounds and obese *Routine Rectal Exam Rectal:: deferred *Routine Genitalia Exam Genitalia:: deferred *Routine Extremities Exam Extremities: Present full ROM and pulses intact Routine Back/Spine/Pelvis Exam Back/Spine: Present full ROM *Routine Skin Exam Skin: Present intact, dry and warm *Routine Neurological Exam Neurological: Present alert, oriented X3, CN II-XII intact, moving all extremities and normal speech Assessment and Plan *Assessment and plan (1) Non-ST elevation MT (NSTEMI): Status: Acute Category: Medical Code(s): I21.4 - Non-ST elevation (NSTEMI) myocardial infarction (2) Pulmonary embolism: Status: Acute Category: Medical Code(s): I26.99 - Other pulmonary embolism without acute cor pulmonale (3) SIRS (systemic inflammatory response syndrome): Status: Acute Category: Medical Code(s): R65.10 - Systemic inflammatory response syndrome (SIRS) of non-infectious origin without acute organ dysfunction (4) JANAK (acute kidney injury): Status: Acute Category: Medical Code(s): N17.9 - Acute kidney failure, unspecified (5) HFrEF (heart failure with reduced ejection fraction): Status: Acute Category: Medical Code(s): I50.20 - Unspecified systolic (congestive) heart failure (6) COPD (chronic obstructive pulmonary disease): Status: Chronic Qualifiers: COPD type: emphysema Emphysema type: other Qualified Code(s): J43.8 - Other emphysema Category: Medical Code(s): J44.9 - Chronic obstructive pulmonary disease, unspecified (7) Tobacco dependence syndrome: Status: Chronic Category: Medical Code(s): F17.200 - Nicotine dependence, unspecified, uncomplicated (8) CAD (coronary artery disease): Status: Chronic Qualifiers: Coronary Disease-Associated Artery/Lesion type: [place] artery [place] vs. transplanted heart: [place] heart Associated angina: with stable angina Qualified Code(s): I25.118 - Atherosclerotic heart disease of [place] coronary artery with other forms of angina pectoris Category: Medical Code(s): I25.10 - Atherosclerotic heart disease of [place] coronary artery without angina pectoris (9) Essential hypertension: Status: Chronic Category: Medical Code(s): I10 - Essential (primary) hypertension (10) HLD (hyperlipidemia): Status: Chronic Qualifiers: Hyperlipidemia type: mixed hyperlipidemia Qualified Code(s): E78.2 - Mixed hyperlipidemia Category: Medical Code(s): E78.5 - Hyperlipidemia, unspecified (11) PAD (peripheral artery disease): Status: Chronic Category: Medical Code(s): I73.9 - Peripheral vascular disease, unspecified (12) PAF (paroxysmal atrial fibrillation): Status: Acute Category: Medical Code(s): I48.0 - Paroxysmal atrial fibrillation (13) Generalized weakness: Status: Acute Category: Medical Code(s): R53.1 - Weakness (14) Fever: Status: Acute Category: Medical Code(s): R50.9 - Fever, unspecified (15) Acute hyponatremia: Status: Acute Category: Medical Code(s): E87.1 - Hypo-osmolality and hyponatremia (16) Acute hyperkalemia: Status: Acute Category: Medical Code(s): E87.5 - Hyperkalemia Plan Mr. Thurman is a 69-year-old male with A-fib, SVT, HFrEF, LHC with JEANNE, GERD, COPD, obesity, tobacco dependence, PAD, CAD, and pacemaker. Presented to the ER with shortness of breath. Workup found SIRS, JANAK, PE, NSTEMI. Discussed case with ER physician, request admission for further treatment of SIRS while awaiting cultures and management of NSTEMI and JANAK. I decided to admit for further care. Will consult cardiology to evaluate in the morning. Problems addressed as follows: Systemic inflammatory response syndrome JANAK Pulmonary emboli - Meeting SIRS criteria with tachycardia, endorgan damage, tachypnea, fever, but no source of infection at this time. Blood and urine cultures pending. - Urine does look questionable with positive bacteria and white count. - Initiated on vancomycin and cefepime in the ER. Will continue cefepime IV twice daily 2 g. Awaiting blood and urine cultures. - CT of chest per my review with no focal consolidation. Has significant COPD changes. Does have right lower lobe PE - Reportedly taking Eliquis 5 mg twice daily at home. Will initiate heparin drip due to suspected clot on DOAC therapy. - Cardiology consulted to evaluate in the morning for PE management as well as NSTEMI. -Repeat CBC, CMP, magnesium ordered for the morning - Will attempt to obtain sputum culture - DuoNebs every 6 hours scheduled - Will administer 500 mg over 2 hours of LR due to JANAK. Patient appears a little dry. - Mini respiratory panel negative, full comprehensive panel pending Atrial fibrillation, recent onset NSTEMI, type II ? Rate controlled at this time. Holding Eliquis while initiating heparin drip above. Resume Plavix 5 mg daily, holding Jardiance in setting of possible UTI, resume isosorbide mononitrate 30 milligrams twice daily, metoprolol succinate 100 mg nightly, and olmesartan 20 mg daily. - Continue to monitor on telemetry - Troponin elevated 1.7, repeat at 1.4. 6-hour pending. Denies tammy chest pain; BNP elevated at 3600 #CAD Heart failure with reduced ejection fraction, EF 40% Hypertension Hyperlipidemia ? Left heart cath performed 12/31/2024. Patient received 3 contiguous stents to the RCA. - Echo obtained in December shows mild to moderate reduced LV, 40%. Severe hypokinesis of the distal and apical LV burgess. No valvular stenosis or regurgitation noted. ?Patient has dual-chamber ICD in place #Tobacco use disorder #COPD with exacerbation ? Patient states he is a daily smoker approximately 1 PPD. - Continue DuoNebs every 6 hours scheduled, budesonide twice daily. #Mood disorder: Continue Wellbutrin 150 mg daily. Full code Heparin drip Cardiac diet
[2025-03-07 21:39] LABS: Lactic Acid Follow Up (RFLX 1) 0.9 mmol/L (0.7-2.1)
[2025-03-07 22:20] LABS: PTT Heparin (inpatient only) 131.3 Seconds (50-75)
--- NOTE | 2025-03-07 22:36 | PC.NURSE ---
Pharmacy called about patient's heparin level.
[2025-03-07 23:35] LABS: Troponin I 0.62 ng/ml (0.00-0.034)
[2025-03-08] VITALS (15 sets, daily range): BP systolic 90–147; BP diastolic 44–66; PULSE 76–90; RESP 16–21; TEMP 36.6–37.6; O2SAT 91–96; BMI 32.6
[2025-03-08 00:05] LABS: PTT Heparin (inpatient only) 112.2 Seconds (50-75)
[2025-03-08] MEDS: HEPARIN 25,000 UNITS/D5W 500 ML 28 UNIT IV (00:24)
[2025-03-08] MEDS: CEFEPIME HCL 2 GM in 0.9 % SODIUM CHLORIDE 100 ML IV ×2 (02:20→13:34)
[2025-03-08 02:26] LABS: Acinetobacter calcoaceticus-ba Not Detected; Bacteroides fragilis Not Detected; Candida auris Not Detected; Candida glabrata Not Detected; Enterobacterales Not Detected; Enterococcus faecalis Not Detected; Enterococcus faecium Not Detected; Klebsiella aerogenes Not Detected; Klebsiella pneumoniae grp Not Detected; Proteus spp. Not Detected; Salmonella spp. Not Detected; Serratia marcescens Not Detected; Staphylococcus epidermidis Not Detected; Staphylococcus lugdunensis Not Detected; Staphylococcus spp. Detected; Stenotrophomonas maltophilia Not Detected; Streptococcus agalactiae(GrpB) Not Detected; Streptococcus pyogenes Group A Not Detected; Streptococcus spp. Not Detected; mecA/C and MREJ (MRSA) Detected
[2025-03-08 03:51] LABS: Acinetobacter calcoaceticus-ba Not Detected; Bacteroides fragilis Not Detected; Candida auris Not Detected; Candida glabrata Not Detected; Enterobacterales Not Detected; Enterococcus faecalis Not Detected; Enterococcus faecium Not Detected; Klebsiella aerogenes Not Detected; Klebsiella pneumoniae grp Not Detected; Proteus spp. Not Detected; Salmonella spp. Not Detected; Serratia marcescens Not Detected; Staphylococcus epidermidis Not Detected; Staphylococcus lugdunensis Not Detected; Staphylococcus spp. Detected; Stenotrophomonas maltophilia Not Detected; Streptococcus agalactiae(GrpB) Not Detected; Streptococcus pyogenes Group A Not Detected; Streptococcus spp. Not Detected; mecA/C and MREJ (MRSA) Detected
[2025-03-08 04:09] LABS: PTT Heparin (inpatient only) 92.5 Seconds (50-75)
--- NOTE | 2025-03-08 05:56 | PC.NURSE ---
Aox 4, up with assistance times one, paced on tele, 02-2l nc but on RA at home, elevated troponins, 20g L FA SL, Heparin gtt going at 1,200 = 24ml/ hr through a 20g R AC, medications locked in drawer, blood cultures positive for MRSA, consult to cardiology, bed alarm active.
[2025-03-08] MEDS: IPRATROPIUM/ALBUTEROL 3 ML NEB IH ×4 (06:10→23:19)
[2025-03-08 06:51] LABS: Hematocrit 33.3 % (42.0-52.0); Immature Granulocytes % 0.7 %; Mean Corpuscular HGB Conc 32.1 g/dL (31.8-35.4); Mean Corpuscular Hemoglobin 29.5 pg (27.0-31.2); Mean Corpuscular Volume 91.7 fl (80-94); Nucleated Red Blood Cells % 0 %; Platelet Count 189 K/mm3 (142-424); Red Blood Count 3.63 M/mm3 (4.60-6.20); Red Cell Distribution Width-SD 51.8 fL; White Blood Count 9.0 K/mm3 (4.8-10.8)
[2025-03-08 07:13] LABS: Albumin Level 3.8 g/dl (3.5-5.0); Chloride 105 mmol/L (98-107); Potassium 4.1 mmoL/L (3.5-5.1); Sodium 132 mmol/L (136-145)
[2025-03-08 07:15] LABS: Blood Urea Nitrogen 42 mg/dl (9-20); Creatinine Clearance Estimated 38 mL/min (50-200); Creatinine,Serum 2.60 mg/dl (0.66-1.25); Estimated Glomerular Filt Rate 25 ml/min (>60); GFR (African American) 30 ML/MIN (>60)
[2025-03-08 07:16] LABS: Alanine Aminotransferase 19 U/L (12-78); Albumin/Globulin Ratio 1.2 (1.1-1.8); Alkaline Phosphatase 60 U/L (38-126); Anion Gap 11.1 mEq/L (5-15); Aspartate Amino Transferase 67 U/L (17-59); Bilirubin,Total 0.5 mg/dl (0.2-1.3); Calcium 8.2 mg/dl (8.4-10.2); Carbon Dioxide 20 mmol/L (22.0-30.0); Globulin 3.2 g/dL (1.3-3.2); Glucose 103 mg/dl (74-100); Magnesium 1.9 mg/dl (1.6-2.3); Total Protein,Serum 7.0 g/dl (6.3-8.2)
[2025-03-08 07:21] LABS: C-Reactive Protein 287.1 mg/L (0-4)
[2025-03-08 07:30] LABS: Hemoglobin 10.7 g/dL (14.1-18.0)
--- NOTE | 2025-03-08 08:26 | P.CONPHA_ITS ---
[facility] Heparin Dosing Demographic Data Admission date:: 03/07/25 Date: 03/08/25 Time: 08:26 Allergies Allergy/AdvReac Type Severity Reaction Status Date / Time rosuvastatin (From Crestor) Allergy Mild Back Pain Verified 02/02/25 15:03 Height: 1.73 m Weight: 97.795 kg Indication Medication therapy:: Heparin Current Indications:: PE - HIGH DOSE PROTOCOL Current Active Problems (Updated 03/08/25 @ 13:15 by Rudi Westfall MD) Bacteremia due to methicillin resistant Staphylococcus aureus (Acute) Pulmonary embolism (Acute) Fever (Acute) Acute hyponatremia (Acute) Acute hyperkalemia (Acute) Sepsis (Acute) Non-ST elevation OR (NSTEMI) (Acute) Staphylococcus aureus bacteremia (Acute) JANAK (acute kidney injury) (Acute) Generalized weakness (Acute) PAF (paroxysmal atrial fibrillation) (Acute) HFrEF (heart failure with reduced ejection fraction) (Acute) COPD (chronic obstructive pulmonary disease) (Chronic) Tobacco dependence syndrome (Chronic) PAD (peripheral artery disease) (Chronic) HLD (hyperlipidemia) (Chronic) Essential hypertension (Chronic) CAD (coronary artery disease) (Chronic) CVA?: No Bleeding problem?: No Kidney disease?: No OR?: Yes Desired PTT range:: 50-75 seconds Comments:: BASELINE PTT: 35.5 SECONDS (03/07/25 14:25) Labs Anticoagulation Lab Results:: 03/07/25 03/08/25 14:25 05:53 Hgb 12.1 L 10.7 L D Hct 37.2 L 33.3 L Plt Count 223 189 Monitoring Dose Monitor 1: Date: 03/07/25 Time: 18:45 PTT Result:: BASELINE PTT: 35.5 SECONDS Infusion Rate:: [place] RECOMMENDED INITIATING HEPARIN DRIP AT 1700 UNITS/HOUR = 34 ML/HOUR AND BOLUSING 7800 UNITS HEPARIN IV ONCE. Comment:: PLATELET COUNT = 223K Dose Monitor 2: Date: 03/07/25 Time: 21:00 PTT Result:: 131.3 SECONDS Infusion Rate:: [place] RECOMMENDED CONTINUING CURRENT HEPARIN DRIP RATE OF 1700 UNITS/HOUR = 34 ML/HOUR. Comment:: [place] ORIGINALLY HAD ORDER FOR PTT PLACED FOR 1999, BUT HEPARIN DRIP STARTED LATE AND THEY ADJUSTED PTT TO 2100 TO ACCOMODATE THIS. Dose Monitor 3: Date: 03/07/25 Time: 23:00 PTT Result:: 112.2 SECONDS Infusion Rate:: [place] RECOMMENDED DECREASING HEPARIN DRIP TO 1400 UNITS/HOUR = 28 ML/HOUR Dose Monitor 4: Date: 03/08/25 Time: 01:30 PTT Result:: 92.5 SECONDS Infusion Rate:: [place] RECOMMENDED DECREASING HEPARIN DRIP TO 1200 UNITS/HOUR = 24 ML/HOUR Dose Monitor 5: Date: 03/08/25 Time: 08:30 PTT Result:: 57.2 SECONDS Infusion Rate:: RECOMMEND INCREASING HEPARIN DRIP TO 1300 UNITS/HOUR = 26 ML/HOUR. Comment:: PLATELET COUNT = 189K Dose Monitor 6: Date: 03/08/25 Time: 15:00 PTT Result:: 47.0 SECONDS Infusion Rate:: RECOMMEND INCREASING HEPARIN DRIP TO 1400 UNITS/HOUR = 28 ML/HOUR AND BOLUS 3000 UNITS HEPARIN IV ONCE. Dose Monitor 7: Date: 03/08/25 Time: 23:00 PTT Result:: 55.0 SECONDS Infusion Rate:: [place] CONTINUED HEPARIN DRIP AT 1400 UNITS/HOUR = 28 ML/HOUR Dose Monitor 8: Date: 03/09/25 Time: 05:00 PTT Result:: 55.0 SECONDS Infusion Rate:: [place] CONTINUED HEPARIN DRIP AT 1400 UNITS/HOUR = 28 ML/HOUR Comment:: PLATELET COUNT = 164K Dose Monitor 9: Date: 03/09/25 Time: 11:00 PTT Result:: 50.8 SECONDS Infusion Rate:: RECOMMEND INCREASING HEPARIN DRIP TO 1500 UNITS/HOUR = 30 ML/HOUR Core Measures Is INR > or = 2 at discharge?: No Most Recent Labs:: Laboratory Results - last 24 hr 03/07/25 14:15: SARS-CoV-2 (PCR) Not detected, Influenza Type A (PCR) Not detected, Influenza Type B (PCR) Not detected, RSV (PCR) Not detected, Rhinovirus (PCR) Not detected 03/07/25 14:25: WBC 12.2 H, RBC 4.10 L, Hgb 12.1 L, Hct 37.2 L, MCV 90.7, MCH 29.5, MCHC 32.5, RDW 15.4, Plt Count 223, MPV 9.1, Neut % (Auto) 90.1 H, Lymph % (Auto) 5.8 L, [place] % (Auto) 3.1, Eos % (Auto) 0.1, Baso % (Auto) 0.2, Neut # (Auto) 11.0 H, Lymph # (Auto) 0.7, [place] # (Auto) 0.4, Eos # (Auto) 0.0, Baso # (Auto) 0.0, PT 12.4, INR 1.13 H, APTT 35.5 L 03/07/25 14:25: APTT 35.5 H, VBG pH 7.33, VBG pCO2 38.7, VBG pO2 29.1, VBG HCO3 19.8 L, VBG Total CO2 21.0 L, VBG O2 Saturation 50.8, VBG Base Excess -6.2 L, VBG Lactic Acid 3.0 H, Sodium 128 L, Potassium 5.8 H, Chloride 101, Carbon Dioxide 19 L, Anion Gap 13.8, BUN 39 H, Creatinine 2.20 H, Estimated Creat Clear 45, Estimated GFR 30 L, Est GFR ( Amer) 36 L, Glucose 134 H, Lactate 2.2 H, Calcium 8.6, Total Bilirubin 1.2, AST 62 H, ALT 21, Alkaline Phosphatase < 20 L, Troponin I 1.78 H, NT-Pro-B Natriuret Pep 3640 H, Total Protein 8.4 H D, Albumin 4.4, Globulin 4.0 H, Albumin/Globulin Ratio 1.1 03/07/25 17:10: Troponin I 1.49 H 03/07/25 18:35: Urine Color Yellow, Urine Appearance Clear, Urine pH 5.5, Ur Specific [place] >= 1.030, Urine Protein 1+ A, Urine Glucose (UA) 1+, Urine Ketones Negative, Urine Blood Negative, Urine Nitrate Negative, Urine Bilirubin Negative, Urine Urobilinogen 0.2, Ur Leukocyte Esterase Negative, Urine RBC 3-5, Urine WBC Occasional, Ur Squamous Epith Cells Occasional, Urine Bacteria 1+, Hyaline Casts 3-5 03/07/25 18:43: POC Glucose 145 H 03/07/25 19:05: Chlamy pneumoniae PCR Not detected, Adenovirus (PCR) Not detected, B. pertussis DNA (PCR) Not detected, Coronavirus OC43 (PCR) Not detected, Coronavirus HKU1 (PCR) Not detected, Coronavirus 229E (PCR) Not detected, SARS-CoV-2 (PCR) Not detected, Coronavirus NL63 (PCR) Not detected, Human Metapneumovir PCR Not detected, Influenza A (H1) PCR Not detected, Influ A (H1N1/09) PCR Not detected, Influenza A (H3) PCR Not detected, Influenza Type A (PCR) Not detected, Influenza Type B (PCR) Not detected, M. pneumoniae (PCR) Not detected, Parainfluenza 1 (PCR) Not detected, Parainfluenza 2 (PCR) Not detected, Parainfluenza 3 (PCR) Not detected, Parainfluenza 4 (PCR) Not detected, RSV (PCR) Not detected, Entero/Rhino (PCR) Not detected 03/07/25 21:15: APTT 131.3 H*, Lactate 0.9, Troponin I 0.62 H 03/07/25 23:13: APTT 112.2 H* 03/08/25 02:15: APTT 92.5 H* 03/08/25 05:53: WBC 9.0 D, RBC 3.63 L, Hgb 10.7 L D, Hct 33.3 L, MCV 91.7, MCH 29.5, MCHC 32.1, RDW 15.3, Plt Count 189, MPV 9.4, Neut % (Auto) 85.6 H, Lymph % (Auto) 8.6 L, [place] % (Auto) 4.9, Eos % (Auto) 0.1, Baso % (Auto) 0.1, Neut # (Auto) 7.7, Lymph # (Auto) 0.8, [place] # (Auto) 0.4, Eos # (Auto) 0.0, Baso # ( Auto) 0.0, ESR 61 H, Sodium 132 L, Potassium 4.1 D, Chloride 105, Carbon Dioxide 20 L, Anion Gap 11.1, BUN 42 H, Creatinine 2.60 H, Estimated Creat Clear 38, Estimated GFR 25 L, Est GFR ( Amer) 30 L, Glucose 103 H D, Calcium 8.2 L, Magnesium 1.9, Total Bilirubin 0.5, AST 67 H, ALT 19, Alkaline Phosphatase 60, C-Reactive Protein 287.1 H, Total Protein 7.0, Albumin 3.8 D, Globulin 3.2, Albumin/Globulin Ratio 1.2 03/08/25 11:45: A. baumannii (PCR) Not detected, Bacteroides fragilis Not detected, Chela albicans (PCR) Not detected, Chela auris (PCR) Not detected, C. glabrata (PCR) Not detected, C. krusei (PCR) Not detected, C. parapsilosis (PCR) Not detected, C. tropicalis (PCR) Not detected, Cryptococcus neoformans PCR Not detected, Enterobacterales (PCR) Not detected, Enterococc faecalis PCR Not detected, Enterococc faecium PCR Not detected, E. coli (PCR) Not detected, H. influenzae DNA Not detected, Klebsiella aerogenes (PCR) Not detected, Klebsiella oxytoca PCR Not detected, K. pneumoniae group (PCR) Not detected, List. monocytogenes PCR Not detected, N. meningitidis (PCR) Not detected, Proteus species (PCR) Not detected, Salmonella spp. (PCR) Not detected, Serratia marcescens PCR Not detected, Staphylococcus sp PCR Detected A, Staph aureus (PCR) Detected A, mecA/C & MREJ Resist Gene Detected A, mecA/C-Methicil Resis Gene Not applicable, Staph epidermidis (PCR) Not detected, Staph lugdunensis (TEM-PCR) Not detected, S. maltophilia (PCR) Not detected, Streptococcus sp PCR Not detected, S.agalactiae Grp B LIZZY Not detected, Strep pneumoniae (PCR) Not detected, S. pyogenes GrpA LIZZY Not detected, P. aeruginosa (PCR) Not detected, [place]/B-Vanco Res Genes Not applicable, blaIMP Car res Gene PCR Not applicable, KPC-Carbap Res Gene PCR Not applicable, blaNDM Car Res Gene PCR Not applicable, OXA-48 Carbapenem Resis Gene (PCR) Not applicable, blaVIM Car Res Gene PCR Not applicable, CTX-M Gene Resistance (PCR) Not applicable, MCR-1 Resistance Gene Not applicable 03/08/25 14:25: A. baumannii (PCR) Not detected, Bacteroides fragilis Not detected, Chela albicans (PCR) Not detected, Chela auris (PCR) Not detected, C. glabrata (PCR) Not detected, C. krusei (PCR) Not detected, C. parapsilosis (PCR) Not detected, C. tropicalis (PCR) Not detected, Cryptococcus neoformans PCR Not detected, Enterobacterales (PCR) Not detected, Enterococc faecalis PCR Not detected, Enterococc faecium PCR Not detected, E. coli (PCR) Not detected, H. influenzae DNA Not detected, Klebsiella aerogenes (PCR) Not detected, Klebsiella oxytoca PCR Not detected, K. pneumoniae group (PCR) Not detected, List. monocytogenes PCR Not detected, N. meningitidis (PCR) Not detected, Proteus species (PCR) Not detected, Salmonella spp. (PCR) Not detected, Serratia marcescens PCR Not detected, Staphylococcus sp PCR Detected A, Staph aureus (PCR) Detected A, mecA/C & MREJ Resist Gene Detected A, mecA/C-Methicil Resis Gene Not applicable, Staph epidermidis (PCR) Not detected, Staph lugdunensis (TEM-PCR) Not detected, S. maltophilia (PCR) Not detected, Streptococcus sp PCR Not detected, S.agalactiae Grp B LIZZY Not detected, Strep pneumoniae (PCR) Not detected, S. pyogenes GrpA LIZZY Not detected, P. aeruginosa (PCR) Not detected, [place]/B-Vanco Res Genes Not applicable, blaIMP Car res Gene PCR Not applicable, KPC-Carbap Res Gene PCR Not applicable, blaNDM Car Res Gene PCR Not applicable, OXA-48 Carbapenem Resis Gene (PCR) Not applicable, blaVIM Car Res Gene PCR Not applicable, CTX-M Gene Resistance (PCR) Not applicable, MCR-1 Resistance Gene Not applicable If INR was < than 2.0 why was therapy stopped?: PATIENT STARTED ON XARELTO. Were Heparin and Warfarin started on the same day?: No If not, why?: PATIENT STARTED ON XARELTO.
[2025-03-08] MEDS: CLOPIDOGREL 75MG TAB 75 MG PO (08:58)
[2025-03-08] MEDS: ISOSORBIDE MONO 30MG TAB.ER.24H 30 MG PO ×2 (08:58→21:00)
[2025-03-08] MEDS: RANOLAZINE 500MG ER TABLET 1000 MG PO ×2 (08:58→21:00)
[2025-03-08] MEDS: IRBESARTAN 150MG TAB 150 MG PO (08:58)
[2025-03-08 09:09] LABS: PTT Heparin (inpatient only) 57.2 Seconds (50-75)
--- NOTE | 2025-03-08 09:55 | HMH.PHAAMS2 ---
- Antimicrobial Stewardship Review culture & sensitivity review Stewardship interventions: culture & sensitivity review (PATIENT CURRENTLY ON CEFEPIME, WBC 9.0K, AFEBRILE, BLD CX PENDING.)
[2025-03-08] MEDS: FLUTICASONE/UMECLIDIN/VILANTER 100/62.5/25MCG INHALER 1 PUFF IH (09:58)
--- NOTE | 2025-03-08 10:43 | EXP.CARD.CON ---
History of Present Illness History of Present Illness Consult date: 03/08/25 Requesting physician: Rudi Westfall Chief complaint: SOA and weakness History of present illness: Solomon Thurman is a 69-year-old white male with a past medical history of heart failure with reduced ejection fraction, A-fib, AICD, COPD, tobacco dependence, hyperlipidemia, hypertension and recent left heart catheterization on 12/31 recieving 3 JEANNE. Mr. Thurman presented to emergency department on 03/07 with a complaint of worsening shortness of breath over the past few days, generalized weakness and a fever. EKG upon presentation to ER showed sinus rhythm at a rate of [address] changes noted. Labs were as follows: WBC 12.2, hemoglobin 12.1, sodium 128, potassium 5.8, creatinine up to 2.2-2.6 (baseline 0.9-1.2), lactate 2.2 and initial troponin of 1.78 trending down to 0.62. ProBNP was 3640 . Kidney functions today is worse at 2.6. Patient underwent a chest CTA which was positive for a right lower lobe pulmonary embolism. Patient was admitted for SIRS, JANAK and pulmonary embolism. Today patient's preliminary blood culture results came back positive for gram-positive cocci in clusters, consistent with Staphylococcus aureus. Cardiology was asked to evaluate for NSTEMI and possible SHANIKA for positive blood cultures. [facility] Disclaimer: The information contained in this section may have been updated after the patient was seen, as this information can be updated by other users. Medical History Dizziness Crescendo angina Atypical angina SVT (supraventricular tachycardia) HFrEF (heart failure with reduced ejection fraction) Ventricular tachycardia Impotence Typical angina NYHA Class III cardiovascular function Post-operative complication Gynecomastia HHD (hypertensive heart disease) HLD (hyperlipidemia) CAD (coronary artery disease) Multiple nodules of lung Diastolic heart failure Obesity PAD (peripheral artery disease) Essential hypertension COPD (chronic obstructive pulmonary disease) GERD (gastroesophageal reflux disease) PVC (premature ventricular contraction) Systolic heart failure Tobacco dependence syndrome Surgical History Status post cardiac catheterization History of endarterectomy Family History No significant family history Social History Smoking Status: Current every day smoker tobacco type: cigarettes packs per day: 1 alcohol intake: never substance use type: denies use current occupational status: unemployed and retired Travel in the last 8 weeks?: None household members: significant other housing: house current occupational exposures/hazards: No caffeine: Yes Have you lived/traveled outside [place] in past 30 days?: No Contact w/someone who lives/traveled outside [place] past 30 days?: No Exposure to someone with infectious disease in past 14 days?: No Do you have a fever (greater than 100.4 F or 38 C)?: No Have you tested positive for COVID-19?: No Exposed to someone with COVID-19 in past 14 days?: No Do you have a sore throat?: No Do you have a cough?: No Do you have any weakness?: No Are you experiencing any nausea/vomitting?: No Do you have any diarrhea?: No Are you experiencing any unusual bleeding?: No Do you have any muscle aches/pain?: No Do you have any abdominal pain?: No Are you experiencing loss of taste or smell?: No Exam Data for Last 24 hours Vital signs and Labs for Last 24 Hours: Temp Pulse Resp BP Pulse Ox O2 Del Method O2 Flow Rate 99.6 F 90 16 134/66 96 Nasal Cannula 2 03/08/25 08:00 03/08/25 08:00 03/08/25 08:00 03/08/25 08:00 03/08/25 08:00 03/08/25 09:10 03/08/25 09:10 FiO2 28 03/08/25 06:12 Laboratory Results - last 24 hr 03/07/25 14:15: SARS-CoV-2 (PCR) Not detected, Influenza Type A (PCR) Not detected, Influenza Type B (PCR) Not detected, RSV (PCR) Not detected, Rhinovirus (PCR) Not detected 03/07/25 14:25: WBC 12.2 H, RBC 4.10 L, Hgb 12.1 L, Hct 37.2 L, MCV 90.7, MCH 29.5, MCHC 32.5, RDW 15.4, Plt Count 223, MPV 9.1, Neut % (Auto) 90.1 H, Lymph % (Auto) 5.8 L, Conway % (Auto) 3.1, Eos % (Auto) 0.1, Baso % (Auto) 0.2, Neut # (Auto) 11.0 H, Lymph # (Auto) 0.7, Conway # (Auto) 0.4, Eos # (Auto) 0.0, Baso # (Auto) 0.0, PT 12.4, INR 1.13 H, APTT 35.5 L 03/07/25 14:25: APTT 35.5 H, VBG pH 7.33, VBG pCO2 38.7, VBG pO2 29.1, VBG HCO3 19.8 L, VBG Total CO2 21.0 L, VBG O2 Saturation 50.8, VBG Base Excess -6.2 L, VBG Lactic Acid 3.0 H, Sodium 128 L, Potassium 5.8 H, Chloride 101, Carbon Dioxide 19 L, Anion Gap 13.8, BUN 39 H, Creatinine 2.20 H, Estimated Creat Clear 45, Estimated GFR 30 L, Est GFR ( Amer) 36 L, Glucose 134 H, Lactate 2.2 H, Calcium 8.6, Total Bilirubin 1.2, AST 62 H, ALT 21, Alkaline Phosphatase < 20 L, Troponin I 1.78 H, NT-Pro-B Natriuret Pep 3640 H, Total Protein 8.4 H D, Albumin 4.4, Globulin 4.0 H, Albumin/Globulin Ratio 1.1 03/07/25 17:10: Troponin I 1.49 H 03/07/25 18:35: Urine Color Yellow, Urine Appearance Clear, Urine pH 5.5, Ur Specific [place] >= 1.030, Urine Protein 1+ A, Urine Glucose (UA) 1+, Urine Ketones Negative, Urine Blood Negative, Urine Nitrate Negative, Urine Bilirubin Negative, Urine Urobilinogen 0.2, Ur Leukocyte Esterase Negative, Urine RBC 3-5, Urine WBC Occasional, Ur Squamous Epith Cells Occasional, Urine Bacteria 1+, Hyaline Casts 3-5 03/07/25 18:43: POC Glucose 145 H 03/07/25 19:05: Chlamy pneumoniae PCR Not detected, Adenovirus (PCR) Not detected, B. pertussis DNA (PCR) Not detected, Coronavirus OC43 (PCR) Not detected, Coronavirus HKU1 (PCR) Not detected, Coronavirus 229E (PCR) Not detected, SARS-CoV-2 (PCR) Not detected, Coronavirus NL63 (PCR) Not detected, Human Metapneumovir PCR Not detected, Influenza A (H1) PCR Not detected, Influ A (H1N1/09) PCR Not detected, Influenza A (H3) PCR Not detected, Influenza Type A (PCR) Not detected, Influenza Type B (PCR) Not detected, M. pneumoniae (PCR) Not detected, Parainfluenza 1 (PCR) Not detected, Parainfluenza 2 (PCR) Not detected, Parainfluenza 3 (PCR) Not detected, Parainfluenza 4 (PCR) Not detected, RSV (PCR) Not detected, Entero/Rhino (PCR) Not detected 03/07/25 21:15: APTT 131.3 H*, Lactate 0.9, Troponin I 0.62 H 03/07/25 23:13: APTT 112.2 H* 03/08/25 02:15: APTT 92.5 H* 03/08/25 05:53: WBC 9.0 D, RBC 3.63 L, Hgb 10.7 L D, Hct 33.3 L, MCV 91.7, MCH 29.5, MCHC 32.1, RDW 15.3, Plt Count 189, MPV 9.4, Neut % (Auto) 85.6 H, Lymph % (Auto) 8.6 L, Conway % (Auto) 4.9, Eos % (Auto) 0.1, Baso % (Auto) 0.1, Neut # (Auto) 7.7, Lymph # (Auto) 0.8, Conway # (Auto) 0.4, Eos # (Auto) 0.0, Baso # (Auto) 0.0, ESR 61 H, Sodium 132 L, Potassium 4.1 D, Chloride 105, Carbon Dioxide 20 L, Anion Gap 11.1, BUN 42 H, Creatinine 2.60 H, Estimated Creat Clear 38, Estimated GFR 25 L, Est GFR ( Amer) 30 L, Glucose 103 H D, Calcium 8.2 L, Magnesium 1.9, Total Bilirubin 0.5, AST 67 H, ALT 19, Alkaline Phosphatase 60, C-Reactive Protein 287.1 H, Total Protein 7.0, Albumin 3.8 D, Globulin 3.2, Albumin/Globulin Ratio 1.2 03/08/25 08:48: APTT 57.2 03/08/25 11:45: A. baumannii (PCR) Not detected, Bacteroides fragilis Not detected, Chela albicans (PCR) Not detected, Chela auris (PCR) Not detected, C. glabrata (PCR) Not detected, C. krusei (PCR) Not detected, C. parapsilosis (PCR) Not detected, C. tropicalis (PCR) Not detected, Cryptococcus neoformans PCR Not detected, Enterobacterales (PCR) Not detected, Enterococc faecalis PCR Not detected, Enterococc faecium PCR Not detected, E. coli (PCR) Not detected, H. influenzae DNA Not detected, Klebsiella aerogenes (PCR) Not detected, Klebsiella oxytoca PCR Not detected, K. pneumoniae group (PCR) Not detected, List. monocytogenes PCR Not detected, N. meningitidis (PCR) Not detected, Proteus species (PCR) Not detected, Salmonella spp. (PCR) Not detected, Serratia marcescens PCR Not detected, Staphylococcus sp PCR Detected A, Staph aureus (PCR) Detected A, mecA/C & MREJ Resist Gene Detected A, mecA/C-Methicil Resis Gene Not applicable, Staph epidermidis (PCR) Not detected, Staph lugdunensis (TEM-PCR) Not detected, S. maltophilia (PCR) Not detected, Streptococcus sp PCR Not detected, S.agalactiae Grp B LIZZY Not detected, Strep pneumoniae (PCR) Not detected, S. pyogenes GrpA LIZZY Not detected, P. aeruginosa (PCR) Not detected, Abimbola/B-Vanco Res Genes Not applicable, blaIMP Car res Gene PCR Not applicable, KPC-Carbap Res Gene PCR Not applicable, blaNDM Car Res Gene PCR Not applicable, OXA-48 Carbapenem Resis Gene (PCR) Not applicable, blaVIM Car Res Gene PCR Not applicable, CTX-M Gene Resistance (PCR) Not applicable, MCR-1 Resistance Gene Not applicable 03/08/25 14:25: A. baumannii (PCR) Not detected, Bacteroides fragilis Not detected, Chela albicans (PCR) Not detected, Chela auris (PCR) Not detected, C. glabrata (PCR) Not detected, C. krusei (PCR) Not detected, C. parapsilosis (PCR) Not detected, C. tropicalis (PCR) Not detected, Cryptococcus neoformans PCR Not detected, Enterobacterales (PCR) Not detected, Enterococc faecalis PCR Not detected, Enterococc faecium PCR Not detected, E. coli (PCR) Not detected, H. influenzae DNA Not detected, Klebsiella aerogenes (PCR) Not detected, Klebsiella oxytoca PCR Not detected, K. pneumoniae group (PCR) Not detected, List. monocytogenes PCR Not detected, N. meningitidis (PCR) Not detected, Proteus species (PCR) Not detected, Salmonella spp. (PCR) Not detected, Serratia marcescens PCR Not detected, Staphylococcus sp PCR Detected A, Staph aureus (PCR) Detected A, mecA/C & MREJ Resist Gene Detected A, mecA/C-Methicil Resis Gene Not applicable, Staph epidermidis (PCR) Not detected, Staph lugdunensis (TEM-PCR) Not detected, S. maltophilia (PCR) Not detected, Streptococcus sp PCR Not detected, S.agalactiae Grp B LIZZY Not detected, Strep pneumoniae (PCR) Not detected, S. pyogenes GrpA LIZZY Not detected, P. aeruginosa (PCR) Not detected, Abimbola/B-Vanco Res Genes Not applicable, blaIMP Car res Gene PCR Not applicable, KPC-Carbap Res Gene PCR Not applicable, blaNDM Car Res Gene PCR Not applicable, OXA-48 Carbapenem Resis Gene (PCR) Not applicable, blaVIM Car Res Gene PCR Not applicable, CTX-M Gene Resistance (PCR) Not applicable, MCR-1 Resistance Gene Not applicable I & O for Last 24 hours: Intake & Output 03/05/25 03/06/25 03/07/25 03/08/25 23:59 23:59 23:59 23:59 Intake Total 1949 459 / 459 Output Total 400 / 400 Balance 1949 Weight 216 lb 8 oz 215 lb 9.617 oz Microbiology Reports for the Last 24 Hours: Microbiology 03/07/25 14:45 Blood Blood Culture - Preliminary Meds Home Medications and Allergies Home Medications ?Medication ?Instructions ?Recorded ?Confirmed ?Type aspirin 81 mg tablet,delayed 81 mg PO DAILY 04/10/17 03/07/25 History release (Adult Low Dose Aspirin) bupropion HCl 150 mg tablet,12 hr 150 mg PO DAILY 04/10/17 03/07/25 History sustained-release fluticasone fur. 100 mcg-umeclid 1 inh inhalation DAILY 10/19/21 03/07/25 History 62.5 mcg-vilant 25 mcg inhalat.powder (Trelegy Ellipta) nitroglycerin 0.4 mg sublingual 0.4 mg sublingual Q5MINP PRN chest 09/17/23 03/07/25 History tablet (Nitrostat) pain ranolazine 1,000 mg 1,000 mg PO BID 12/29/24 03/07/25 History tablet,extended release,12 hr apixaban 5 mg tablet (Eliquis) 5 mg PO BID #60 tabs 12/30/24 03/07/25 Rx clopidogrel 75 mg tablet 75 mg PO DAILY 30 days #30 tabs 12/30/24 03/07/25 Rx metoprolol succinate 100 mg 100 mg PO HS 30 days #30 tabs 12/30/24 03/07/25 Rx tablet,extended release 24 hr empagliflozin 10 mg tablet 10 mg PO DAILY 30 days #30 tabs 01/12/25 03/07/25 Rx (Jardiance) olmesartan 20 mg tablet 20 mg PO DAILY #30 tabs 01/28/25 03/07/25 Rx isosorbide mononitrate 30 mg 30 mg PO BID #30 tabs 02/02/25 03/07/25 Rx tablet,extended release 24 hr New Prescriptions to Start Prescriptions: Allergies Allergy/AdvReac Type Severity Reaction Status Date / Time rosuvastatin (From Crestor) Allergy Mild Back Pain Verified 02/02/25 15:03 Assessment and Plan *Assessment and plan (1) Bacteremia due to methicillin resistant Staphylococcus aureus: Status: Acute Category: Medical Code(s): R78.81 - Bacteremia; B95.62 - Methicillin resistant Staphylococcus aureus infection as the cause of diseases classified elsewhere (2) SIRS (systemic inflammatory response syndrome): Status: Ruled-out Category: Medical Code(s): R65.10 - Systemic inflammatory response syndrome (SIRS) of non-infectious origin without acute organ dysfunction (3) Pulmonary embolism: Status: Acute Category: Medical Code(s): I26.99 - Other pulmonary embolism without acute cor pulmonale (4) Non-ST elevation MD (NSTEMI): Status: Acute Category: Medical Code(s): I21.4 - Non-ST elevation (NSTEMI) myocardial infarction (5) Staphylococcus aureus bacteremia: Status: Acute Category: Medical Code(s): R78.81 - Bacteremia; B95.61 - Methicillin susceptible Staphylococcus aureus infection as the cause of diseases classified elsewhere (6) PAF (paroxysmal atrial fibrillation): Status: Acute Category: Medical Code(s): I48.0 - Paroxysmal atrial fibrillation Plan Sepsis MRSA bacteremia Defer to primary service for antibiotic management and repeat blood cultures Repeat limited echo to look valves. SHANIKA previously not completed due to source of infection identified and no evidence of vegetation or mobile echodensities were noted on TTE, however, given reoccurrence of positive blood cultures will consider proceeding with SHANIKA for evaluation for possible endocarditis as source of bacteremia. JANAK Creatinine 2.2-2.6 Gentle fluids Pulmonary embolism CTA chest positive for right lower lobe PE. Currently on heparin drip- will continue at this time. History of A-fib Currently rate controlled. Eliquis on hold-patient is on heparin drip History of coronary artery disease Acute myocardial injury in the setting of sepsis, bacteremia and right-sided PE Troponin 1.7 on admission trending down to 1.49 EKG negative for STEMI Left heart catheterization 12/31/2024-3 JEANNE to RCA Continue Plavix. Patient is on Repatha. Statin intolerant Continue Imdur 30 mg p.o. twice daily Continue Ranexa 1000 mg p.o. twice daily No plan for intervention at this time History of heart failure with reduced ejection fraction Status post [facility] Echo 12/2024 shows an EF of 40%. No obvious evidence of vegetation or mobile echodensities noted on TTE. Cardiology implant summary from [facility] reviewed and shows less than 1% A. tach A-fib burden with episodes of SVT and NSVT Continue metoprolol succinate 100 mg p.o. daily and irbesartan 150 mg p.o. daily. Jardiance currently on hold due to concern for UTI. Will consider aldactone after sepsis treatment. CV summary 03/08/2025: Will repeat limited echo today to look at valves. Will consider repeat SHANIKA in the next few days. Cardiac meds: Heparin drip Plavix 75 mg p.o. daily Imdur 30 mg p.o. twice daily Ranexa 1000 mg p.o. twice daily Metoprolol succinate 100 mg p.o. daily Irbesartan 150 mg p.o. daily
[2025-03-08] MEDS: HEPARIN 25,000 UNITS/D5W 500 ML 26 UNIT IV (11:15)
--- NOTE | 2025-03-08 13:13 | EXP.ACUTE.PN ---
Subjective *Date: 03/08/25 *Time: 13:13 Interval history: No chills or shakes today. On 2 L while asleep. Room air while awake. No fever overnight. Denies chest pain or shortness of breath. Feels marginally better. Family at bedside Medical Exam Vital signs and Labs for Last 24 Hours: Vital Signs Temp Pulse Pulse Resp BP BP Pulse Ox 03/08/25 12:00 98.9 F 81 18 117/55 L 94 L 03/08/25 11:26 82 03/08/25 11:26 81 03/08/25 11:26 91 L 03/08/25 11:20 03/08/25 09:10 03/08/25 08:40 03/08/25 08:00 99.6 F 90 16 134/66 96 03/08/25 06:12 82 03/08/25 06:12 85 03/08/25 06:12 95 03/08/25 06:10 03/08/25 05:00 03/08/25 04:00 80 03/08/25 04:00 99.6 F 76 21 95/52 L 96 03/08/25 03:00 03/08/25 01:00 03/08/25 00:00 80 03/08/25 00:00 97.8 F 76 16 90/44 L 96 03/07/25 23:40 80 03/07/25 23:40 86 03/07/25 23:40 96 03/07/25 23:00 03/07/25 21:00 03/07/25 20:00 110 H 03/07/25 20:00 03/07/25 19:58 100.6 F H 113 H 18 148/66 H 98 03/07/25 19:00 03/07/25 18:59 100 H 03/07/25 18:59 103 H 03/07/25 18:59 98 03/07/25 18:23 98.9 F 98 H 14 147/77 H 97 03/07/25 18:18 03/07/25 17:53 98.1 F 90 20 125/79 03/07/25 17:30 78 21 128/59 L 97 03/07/25 17:17 83 25 H 128/62 96 03/07/25 17:12 88 25 H 133/105 H 98 03/07/25 16:31 83 22 110/50 L 94 L 03/07/25 16:00 80 24 115/49 L 94 L 03/07/25 15:50 24 119/53 L 03/07/25 15:02 95 H 25 H 129/56 L 97 03/07/25 14:36 97 03/07/25 14:16 101.4 F H 95 H 29 H 143/72 H 97 O2 Del Method O2 Flow Rate FiO2 03/08/25 12:00 Room Air 03/08/25 11:26 03/08/25 11:26 03/08/25 11:26 Room Air 03/08/25 11:20 Room Air 03/08/25 09:10 Nasal Cannula 2 03/08/25 08:40 Nasal Cannula 2 03/08/25 08:00 Room Air 03/08/25 06:12 03/08/25 06:12 03/08/25 06:12 Nasal Cannula 2 03/08/25 06:10 Nasal Cannula 2 03/08/25 05:00 Nasal Cannula 2 03/08/25 04:00 03/08/25 04:00 Nasal Cannula 2 03/08/25 03:00 Nasal Cannula 2 03/08/25 01:00 Nasal Cannula 2 03/08/25 00:00 03/08/25 00:00 Nasal Cannula 2 03/07/25 23:40 03/07/25 23:40 03/07/25 23:40 Nasal Cannula 2 03/07/25 23:00 Nasal Cannula 2 03/07/25 21:00 Nasal Cannula 2 03/07/25 20:00 03/07/25 20:00 Nasal Cannula 2 03/07/25 19:58 Nasal Cannula 2 03/07/25 19:00 Nasal Cannula 2 03/07/25 18:59 03/07/25 18:59 03/07/25 18:59 Nasal Cannula 2 03/07/25 18:23 Room Air 03/07/25 18:18 Room Air 03/07/25 17:53 Room Air 03/07/25 17:30 03/07/25 17:17 03/07/25 17:12 03/07/25 16:31 03/07/25 16:00 Room Air 03/07/25 15:50 03/07/25 15:02 Room Air 03/07/25 14:36 Room Air 03/07/25 14:16 Room Air Intake and Output 03/07/25 03/08/25 03/08/25 23:59 07:59 15:59 Intake Total / 1949 219 / 840 621 / 840 Output Total 400 / 400 Balance / 1949 -181 / 440 621 / 440 Intake: Intake, Oral Amount 240 / 240 Intake, Total IV Amount / 1949 219 / 600 381 / 600 Cefepime HCl 2 gm In 0.9 % 100 / 100 Sodium Chloride 100 ml @ 200 mls/hr IV Q12H [facility] Rx#: [id number] Heparin Sodium,Porcine/D5w 500 119 / 500 381 / 500 ml @ 1,200 UNITS/HR 24 mls/hr IV .[id number] [facility] Rx#:[id number] Lactated Ringers 1000ML 500 ml 500 / 500 @ 250 mls/hr IV .Q2H [facility] Rx#: [id number] Vancomycin/Water For Inj (Peg) 350 / 350 1.75 gm In 350 ml @ 175 mls/hr IV ONCE ONE Rx#:[id number] Output: Output, Urine Amount 400 / 400 Other: Number of Unmeasured Voids 0 Number of Bowel Movements 1 Weight 98.203 kg 97.795 kg 97.795 kg Patient Weight 03/08/25 23:59 Weight 97.795 kg Laboratory Results - last 24 hr 03/07/25 14:15: SARS-CoV-2 (PCR) Not detected, Influenza Type A (PCR) Not detected, Influenza Type B (PCR) Not detected, RSV (PCR) Not detected, Rhinovirus (PCR) Not detected 03/07/25 14:25: WBC 12.2 H, RBC 4.10 L, Hgb 12.1 L, Hct 37.2 L, MCV 90.7, MCH 29.5, MCHC 32.5, RDW 15.4, Plt Count 223, MPV 9.1, Neut % (Auto) 90.1 H, Lymph % (Auto) 5.8 L, [place] % (Auto) 3.1, Eos % (Auto) 0.1, Baso % (Auto) 0.2, Neut # (Auto) 11.0 H, Lymph # (Auto) 0.7, [place] # (Auto) 0.4, Eos # (Auto) 0.0, Baso # (Auto) 0.0, PT 12.4, INR 1.13 H, APTT 35.5 L 03/07/25 14:25: APTT 35.5 H, VBG pH 7.33, VBG pCO2 38.7, VBG pO2 29.1, VBG HCO3 19.8 L, VBG Total CO2 21.0 L, VBG O2 Saturation 50.8, VBG Base Excess -6.2 L, VBG Lactic Acid 3.0 H, Sodium 128 L, Potassium 5.8 H, Chloride 101, Carbon Dioxide 19 L, Anion Gap 13.8, BUN 39 H, Creatinine 2.20 H, Estimated Creat Clear 45, Estimated GFR 30 L, Est GFR ( Amer) 36 L, Glucose 134 H, Lactate 2.2 H, Calcium 8.6, Total Bilirubin 1.2, AST 62 H, ALT 21, Alkaline Phosphatase < 20 L, Troponin I 1.78 H, NT-Pro-B Natriuret Pep 3640 H, Total Protein 8.4 H D, Albumin 4.4, Globulin 4.0 H, Albumin/Globulin Ratio 1.1 03/07/25 17:10: Troponin I 1.49 H 03/07/25 18:35: Urine Color Yellow, Urine Appearance Clear, Urine pH 5.5, Ur Specific [place] >= 1.030, Urine Protein 1+ A, Urine Glucose (UA) 1+, Urine Ketones Negative, Urine Blood Negative, Urine Nitrate Negative, Urine Bilirubin Negative, Urine Urobilinogen 0.2, Ur Leukocyte Esterase Negative, Urine RBC 3-5, Urine WBC Occasional, Ur Squamous Epith Cells Occasional, Urine Bacteria 1+, Hyaline Casts 3-5 03/07/25 18:43: POC Glucose 145 H 03/07/25 19:05: Chlamy pneumoniae PCR Not detected, Adenovirus (PCR) Not detected, B. pertussis DNA (PCR) Not detected, Coronavirus OC43 (PCR) Not detected, Coronavirus HKU1 (PCR) Not detected, Coronavirus 229E (PCR) Not detected, SARS-CoV-2 (PCR) Not detected, Coronavirus NL63 (PCR) Not detected, Human Metapneumovir PCR Not detected, Influenza A (H1) PCR Not detected, Influ A (H1N1/09) PCR Not detected, Influenza A (H3) PCR Not detected, Influenza Type A (PCR) Not detected, Influenza Type B (PCR) Not detected, M. pneumoniae (PCR) Not detected, Parainfluenza 1 (PCR) Not detected, Parainfluenza 2 (PCR) Not detected, Parainfluenza 3 (PCR) Not detected, Parainfluenza 4 (PCR) Not detected, RSV (PCR) Not detected, Entero/Rhino (PCR) Not detected 03/07/25 21:15: APTT 131.3 H*, Lactate 0.9, Troponin I 0.62 H 03/07/25 23:13: APTT 112.2 H* 03/08/25 02:15: APTT 92.5 H* 03/08/25 05:53: WBC 9.0 D, RBC 3.63 L, Hgb 10.7 L D, Hct 33.3 L, MCV 91.7, MCH 29.5, MCHC 32.1, RDW 15.3, Plt Count 189, MPV 9.4, Neut % (Auto) 85.6 H, Lymph % (Auto) 8.6 L, [place] % (Auto) 4.9, Eos % (Auto) 0.1, Baso % (Auto) 0.1, Neut # (Auto) 7.7, Lymph # (Auto) 0.8, [place] # (Auto) 0.4, Eos # (Auto) 0.0, Baso # (Auto) 0.0, ESR 61 H, Sodium 132 L, Potassium 4.1 D, Chloride 105, Carbon Dioxide 20 L, Anion Gap 11.1, BUN 42 H, Creatinine 2.60 H, Estimated Creat Clear 38, Estimated GFR 25 L, Est GFR ( Amer) 30 L, Glucose 103 H D, Calcium 8.2 L, Magnesium 1.9, Total Bilirubin 0.5, AST 67 H, ALT 19, Alkaline Phosphatase 60, C-Reactive Protein 287.1 H, Total Protein 7.0, Albumin 3.8 D, Globulin 3.2, Albumin/Globulin Ratio 1.2 03/08/25 08:48: APTT 57.2 03/08/25 11:45: A. baumannii (PCR) Not detected, Bacteroides fragilis Not detected, Chela albicans (PCR) Not detected, Chela auris (PCR) Not detected, C. glabrata (PCR) Not detected, C. krusei (PCR) Not detected, C. parapsilosis (PCR) Not detected, C. tropicalis (PCR) Not detected, Cryptococcus neoformans PCR Not detected, Enterobacterales (PCR) Not detected, Enterococc faecalis PCR Not detected, Enterococc faecium PCR Not detected, E. coli (PCR) Not detected, H. influenzae DNA Not detected, Klebsiella aerogenes (PCR) Not detected, Klebsiella oxytoca PCR Not detected, K. pneumoniae group (PCR) Not detected, List. monocytogenes PCR Not detected, N. meningitidis (PCR) Not detected, Proteus species (PCR) Not detected, Salmonella spp. (PCR) Not detected, Serratia marcescens PCR Not detected, Staphylococcus sp PCR Detected A, Staph aureus (PCR) Detected A, mecA/C & MREJ Resist Gene Detected A, mecA/C-Methicil Resis Gene Not applicable, Staph epidermidis (PCR) Not detected, Staph lugdunensis (TEM-PCR) Not detected, S. maltophilia (PCR) Not detected, Streptococcus sp PCR Not detected, S.agalactiae Grp B LIZZY Not detected, Strep pneumoniae (PCR) Not detected, S. pyogenes GrpA LIZZY Not detected, P. aeruginosa (PCR) Not detected, [place]/B-Vanco Res Genes Not applicable, blaIMP Car res Gene PCR Not applicable, KPC-Carbap Res Gene PCR Not applicable, blaNDM Car Res Gene PCR Not applicable, OXA-48 Carbapenem Resis Gene (PCR) Not applicable, blaVIM Car Res Gene PCR Not applicable, CTX-M Gene Resistance (PCR) Not applicable, MCR-1 Resistance Gene Not applicable 03/08/25 14:25: A. baumannii (PCR) Not detected, Bacteroides fragilis Not detected, Chela albicans (PCR) Not detected, Chela auris (PCR) Not detected, C. glabrata (PCR) Not detected, C. krusei (PCR) Not detected, C. parapsilosis (PCR) Not detected, C. tropicalis (PCR) Not detected, Cryptococcus neoformans PCR Not detected, Enterobacterales (PCR) Not detected, Enterococc faecalis PCR Not detected, Enterococc faecium PCR Not detected, E. coli (PCR) Not detected, H. influenzae DNA Not detected, Klebsiella aerogenes (PCR) Not detected, Klebsiella oxytoca PCR Not detected, K. pneumoniae group (PCR) Not detected, List. monocytogenes PCR Not detected, N. meningitidis (PCR) Not detected, Proteus species (PCR) Not detected, Salmonella spp. (PCR) Not detected, Serratia marcescens PCR Not detected, Staphylococcus sp PCR Detected A, Staph aureus (PCR) Detected A, mecA/C & MREJ Resist Gene Detected A, mecA/C-Methicil Resis Gene Not applicable, Staph epidermidis (PCR) Not detected, Staph lugdunensis (TEM-PCR) Not detected, S. maltophilia (PCR) Not detected, Streptococcus sp PCR Not detected, S.agalactiae Grp B LIZZY Not detected, Strep pneumoniae (PCR) Not detected, S. pyogenes GrpA LIZZY Not detected, P. aeruginosa (PCR) Not detected, [place]/B-Vanco Res Genes Not applicable, blaIMP Car res Gene PCR Not applicable, KPC-Carbap Res Gene PCR Not applicable, blaNDM Car Res Gene PCR Not applicable, OXA-48 Carbapenem Resis Gene (PCR) Not applicable, blaVIM Car Res Gene PCR Not applicable, CTX-M Gene Resistance (PCR) Not applicable, MCR-1 Resistance Gene Not applicable I & O for Labs for Last 24 Hours: Intake & Output 03/05/25 03/06/25 03/07/25 03/08/25 23:59 23:59 23:59 23:59 Intake Total 1949 840 / 840 Output Total 400 / 400 Balance 1949 440 / 440 Weight 98.203 kg 97.795 kg Microbiology Reports for the Last 24 Hours: Microbiology 03/07/25 14:45 Blood Blood Culture - Preliminary Constitutional: Present mild distress, obese, chronically ill appearing and cooperative Head: Present atraumatic Eyes: Present as per HPI ENT: Present normal exam Neck: Present normal inspection Respiratory: Present prolonged expiratory phase, wheezes (Minimal), normal respiratory effort and symmetric chest movement; Absent crackles Cardiac: Present Regular Rate Comment:: Atrial fibrillation with PVCs GI: Present soft and normal bowel sounds; Absent distention or tenderness Rectal (male): Present deferred (male): Present normal inspection Comment:: No lesions on the scrotum. Phan V male. Extremities: Present normal inspection and normal capillary refill; Absent edema Skin: Present intact and dry; Absent erythema or rash Neuro: Present Grossly Intact, alert, awake, oriented x 3 and moves all extremities Assessment and Plan *Assessment and plan (1) Sepsis: Status: Acute Category: Medical Code(s): A41.9 - Sepsis, unspecified organism (2) Non-ST elevation IN (NSTEMI): Status: Acute Category: Medical Code(s): I21.4 - Non-ST elevation (NSTEMI) myocardial infarction (3) Bacteremia due to methicillin resistant Staphylococcus aureus: Status: Acute Category: Medical Code(s): R78.81 - Bacteremia; B95.62 - Methicillin resistant Staphylococcus aureus infection as the cause of diseases classified elsewhere (4) Pulmonary embolism: Status: Acute Category: Medical Code(s): I26.99 - Other pulmonary embolism without acute cor pulmonale (5) JANAK (acute kidney injury): Status: Acute Category: Medical Code(s): N17.9 - Acute kidney failure, unspecified (6) HFrEF (heart failure with reduced ejection fraction): Status: Acute Category: Medical Code(s): I50.20 - Unspecified systolic (congestive) heart failure (7) COPD (chronic obstructive pulmonary disease): Status: Chronic Qualifiers: COPD type: emphysema Emphysema type: other Qualified Code(s): J43.8 - Other emphysema Category: Medical Code(s): J44.9 - Chronic obstructive pulmonary disease, unspecified (8) Tobacco dependence syndrome: Status: Chronic Category: Medical Code(s): F17.200 - Nicotine dependence, unspecified, uncomplicated (9) CAD (coronary artery disease): Status: Chronic Qualifiers: Coronary Disease-Associated Artery/Lesion type: [place] artery [place] vs. transplanted heart: [place] heart Associated angina: with stable angina Qualified Code(s): I25.118 - Atherosclerotic heart disease of [place] coronary artery with other forms of angina pectoris Category: Medical Code(s): I25.10 - Atherosclerotic heart disease of [place] coronary artery without angina pectoris (10) Essential hypertension: Status: Chronic Category: Medical Code(s): I10 - Essential (primary) hypertension (11) HLD (hyperlipidemia): Status: Chronic Qualifiers: Hyperlipidemia type: mixed hyperlipidemia Qualified Code(s): E78.2 - Mixed hyperlipidemia Category: Medical Code(s): E78.5 - Hyperlipidemia, unspecified (12) PAD (peripheral artery disease): Status: Chronic Category: Medical Code(s): I73.9 - Peripheral vascular disease, unspecified (13) PAF (paroxysmal atrial fibrillation): Status: Acute Category: Medical Code(s): I48.0 - Paroxysmal atrial fibrillation (14) Generalized weakness: Status: Acute Category: Medical Code(s): R53.1 - Weakness (15) Fever: Status: Acute Category: Medical Code(s): R50.9 - Fever, unspecified (16) Acute hyponatremia: Status: Acute Category: Medical Code(s): E87.1 - Hypo-osmolality and hyponatremia (17) Acute hyperkalemia: Status: Acute Category: Medical Code(s): E87.5 - Hyperkalemia Plan Mr. Thurman is a 69-year-old male with A-fib, SVT, HFrEF, LHC with JEANNE, GERD, COPD, obesity, tobacco dependence, PAD, CAD, and pacemaker. Presented to the ER with shortness of breath. Workup found SIRS, JANAK, PE, NSTEMI. Discussed case with ER physician, request admission for further treatment of SIRS while awaiting cultures and management of NSTEMI and JANAK. I decided to admit for further care. Cardiology consulted in the morning. Blood cultures returned positive. Patient meeting criteria for severe sepsis given his NSTEMI and cardiac dysfunction along with bacteremia, tachycardia, fever, tachypnea. High risk for decompensation. Plan for limited echo today, will consider SHANIKA in the next day or 2. Repeat blood cultures ordered daily until negative. Problems addressed as follows: Severe sepsis MRSA bacteremia JANAK Pulmonary emboli - Meeting SIRS criteria with tachycardia, endorgan damage, tachypnea, fever, but no source of infection at this time. Blood culture positive for MRSA. Had similar infection 2 months ago that was thought to have resolved. - Repeat blood cultures daily until negative. - Will need at least 6 weeks of antibiotics. Continue vancomycin and cefepime. - White count improved to 9.0. Hemoglobin 10.7. Kidney function still abnormal with BUN 42, creatinine 2.6. Potassium 4.1. ESR elevated at 61, CRP elevated at 287. Repeat in 24 hours to monitor for improvement - Urine does look questionable with positive bacteria and white count. - CT of chest per my review with no focal consolidation. Has significant COPD changes. Does have right lower lobe PE - continue heparin drip due to suspected clot on DOAC therapy. - Discussed case with cardiology, plan for limited echo today. Will consider SHANIKA if need further evaluation for possible endocarditis or source of his bacteremia -Repeat CBC, CMP, magnesium ordered for the morning - DuoNebs every 6 hours scheduled - Comprehensive respiratory panel Atrial fibrillation, recent onset NSTEMI, type II ? Rate controlled at this time. Holding Eliquis while initiating heparin drip above. Resume Plavix 5 mg daily, holding Jardiance in setting of possible UTI, resume isosorbide mononitrate 30 milligrams twice daily, metoprolol succinate 100 mg nightly, and olmesartan 20 mg daily. - Continue to monitor on telemetry - Troponin elevated 1.7 on admission, improved to 0.6 x 6-hour level. Trending down. Denies tammy chest pain; BNP elevated at 3600 #CAD Heart failure with reduced ejection fraction, EF 40% Hypertension Hyperlipidemia ? Left heart cath performed 12/31/2024. Patient received 3 contiguous stents to the RCA. - Echo obtained in December shows mild to moderate reduced LV, 40%. Severe hypokinesis of the distal and apical LV burgess. No valvular stenosis or regurgitation noted. ?Patient has dual-chamber ICD in place #Tobacco use disorder #COPD with exacerbation ? Patient states he is a daily smoker approximately 1 PPD. - Continue DuoNebs every 6 hours scheduled, budesonide twice daily. #Mood disorder: Continue Wellbutrin 150 mg daily. Full code Heparin drip Cardiac diet
--- NOTE | 2025-03-08 13:31 | CA_ITS ---
APPROVED REPORT EXAM: Limited 2D and color flow Echocardiogram [employer]: RT Mini(R) Ht: 5 ft 9 in Wt: 215lbs BSA: 2.13 BP: 134/66 mmHg Indications: bacteremia, evaluate valves, pulmonary emboli currently, NSTEMI 2D Dimensions LVOT 2.36 cm (M/F) 1.5-2.5 Other Information Study Quality: Technically Difficult Conclusion This is a limited TTE to evaluate for endocarditis in the setting of recurrent bacteremia. Limited windows were obtained. The aortic valve is mildly thickened, but no evidence of mobile echodensity. Mitral valve opens well. No evidence of MV echodensity. The tricuspid valve leaflets open well. No evidence of TV echodensity. The pulmonic valve is not well-visualized in the study. No evidence of significant valvular regurgitation or stenosis. TTE is highly sensitive or specific for evaluation of endocarditis (especially for echodensities < 1 cm in size). If clinical suspicion persists, further evaluation is suggested with SHANIKA. Electronically signed by : Harika Quiñonez MD 03/08/2025 15:11:52
[2025-03-08] MEDS: LACTATED RINGERS 1000ML 500 ML 250 ML IV (15:05)
[2025-03-08 15:59] LABS: PTT Heparin (inpatient only) 47.0 Seconds (50-75)
[2025-03-08] MEDS: HEPARIN SODIUM 5,000 UNIT/ML VIAL 3000 UNIT IV (16:37)
--- NOTE | 2025-03-08 17:14 | PC.NURSE ---
VS stable, patient weaned to RA. Lung sounds expiratory wheezes. Heparin gtt managed per pharmacy.
[2025-03-08 18:54] LABS: Anion Gap 11.0 mEq/L (5-15); Blood Urea Nitrogen 47 mg/dl (9-20); Calcium 8.2 mg/dl (8.4-10.2); Carbon Dioxide 18 mmol/L (22.0-30.0); Chloride 108 mmol/L (98-107); Creatinine Clearance Estimated 52 mL/min (50-200); Creatinine,Serum 1.90 mg/dl (0.66-1.25); Estimated Glomerular Filt Rate 36 ml/min (>60); GFR (African American) 43 ML/MIN (>60); Glucose 124 mg/dl (74-100); Potassium 4.0 mmoL/L (3.5-5.1); Sodium 133 mmol/L (136-145)
[2025-03-08] MEDS: METOPROLOL SUCCINATE XL 100MG TABLET 100 MG PO (21:00)
[2025-03-08 23:43] LABS: PTT Heparin (inpatient only) 55.0 Seconds (50-75)
--- NOTE | 2025-03-08 23:50 | PC.NURSE ---
Addendum entered by Bhavna Timmons RN 03/09/25 05:50: Mary from [employer] called at 05:46 this morning to inform me that the patient's heparin drip rate can still remain the same (28 mL/hr or 1,400 units/hr). His APTT value from 05:18 was 55.0 again. Next APTT lab draw is scheduled for 06:00 tomorrow (03/10/25). Original Note: Mary from [employer] [facility] called at this time to inform me that the patient's heparin drip rate can remain the same (28 mL/hr or 1,400 units/hr). His APTT value from 23:16 was 55.0. Next APTT lab draw is scheduled for 05:00.
[2025-03-09] VITALS (11 sets, daily range): BP systolic 123–150; BP diastolic 52–78; PULSE 66–90; RESP 16–19; TEMP 36.8–37.3; O2SAT 93–96; BMI 33.4
[2025-03-09] MEDS: CEFEPIME HCL 2 GM in 0.9 % SODIUM CHLORIDE 100 ML IV ×2 (02:45→13:20)
--- NOTE | 2025-03-09 03:30 | PC.NURSE ---
Patient is alert and oriented x4. He was observed to be resting in bed with eyes closed, respirations even and unlabored on room air, and no apparent distress throughout the majority of the night. His daughter has remained at the bedside. Oxygen saturations > 90%. On telemetry. Patient has not had any complaints of chest pain, shortness of breath, or further chill/shivering episodes this shift. Physical assessment (see nursing shift biophysical intervention) was performed as appropriately this shift. Vital signs Q4HR. Scheduled medications were administered per MAY. No changes in rate were made to the patient's heparin drip thus far this shift. Breathing treatments given by RTs. Urinal at bedside for voiding needs; urine noted to be everardo in color and slightly odorous. Patient gets up with standby assistance as needed during ambulation/transfers. At this time, the patient remains resting in bed with no new needs vocalized. Call light is within reach. Contact precautions ongoing for MRSA found in blood cultures.
[2025-03-09] MEDS: HEPARIN 25,000 UNITS/D5W 500 ML 28 UNIT IV (05:30)
[2025-03-09 05:31] LABS: Hematocrit 29.5 % (42.0-52.0); Hemoglobin 9.9 g/dL (14.1-18.0); Immature Granulocytes % 0.8 %; Mean Corpuscular HGB Conc 33.6 g/dL (31.8-35.4); Mean Corpuscular Hemoglobin 29.7 pg (27.0-31.2); Mean Corpuscular Volume 88.6 fl (80-94); Nucleated Red Blood Cells % 0 %; Platelet Count 164 K/mm3 (142-424); Red Blood Count 3.33 M/mm3 (4.60-6.20); Red Cell Distribution Width-SD 49.3 fL; White Blood Count 6.4 K/mm3 (4.8-10.8)
[2025-03-09 05:32] LABS: Albumin Level 3.3 g/dl (3.5-5.0); Chloride 110 mmol/L (98-107); Sodium 132 mmol/L (136-145)
[2025-03-09 05:33] LABS: Potassium 3.8 mmoL/L (3.5-5.1)
[2025-03-09 05:35] LABS: Alanine Aminotransferase 31 U/L (12-78); Albumin/Globulin Ratio 1.1 (1.1-1.8); Alkaline Phosphatase 58 U/L (38-126); Anion Gap 8.8 mEq/L (5-15); Aspartate Amino Transferase 59 U/L (17-59); Bilirubin,Total 0.4 mg/dl (0.2-1.3); Blood Urea Nitrogen 39 mg/dl (9-20); Carbon Dioxide 17 mmol/L (22.0-30.0); Creatinine Clearance Estimated 68 mL/min (50-200); Creatinine,Serum 1.50 mg/dl (0.66-1.25); Estimated Glomerular Filt Rate 47 ml/min (>60); GFR (African American) 56 ML/MIN (>60); Globulin 3.0 g/dL (1.3-3.2); Total Protein,Serum 6.3 g/dl (6.3-8.2)
[2025-03-09 05:36] LABS: Calcium 8.3 mg/dl (8.4-10.2); Glucose 104 mg/dl (74-100)
[2025-03-09 05:42] LABS: C-Reactive Protein 228.0 mg/L (0-4)
[2025-03-09 05:43] LABS: PTT Heparin (inpatient only) 55.0 Seconds (50-75)
[2025-03-09] MEDS: FLUTICASONE/UMECLIDIN/VILANTER 100/62.5/25MCG INHALER 1 PUFF IH (06:04)
[2025-03-09] MEDS: IPRATROPIUM/ALBUTEROL 3 ML NEB IH ×4 (06:04→23:21)
[2025-03-09] MEDS: RANOLAZINE 500MG ER TABLET 1000 MG PO ×2 (09:46→20:48)
[2025-03-09] MEDS: IRBESARTAN 150MG TAB 150 MG PO (09:46)
[2025-03-09] MEDS: CLOPIDOGREL 75MG TAB 75 MG PO (09:47)
[2025-03-09] MEDS: ISOSORBIDE MONO 30MG TAB.ER.24H 30 MG PO ×2 (09:47→20:48)
--- NOTE | 2025-03-09 10:11 | EXP.CARD.PN ---
Subjective Subjective Date: 03/09/25 Time: 08:00 Principal diagnosis: Sepsis Interval history: Sleeping this morning. Morning labs reviewed. Exam Data for Last 24 hours Vital signs and Labs for Last 24 Hours: Temp Pulse Resp BP Pulse Ox O2 Del Method O2 Flow Rate 98.3 F 80 19 149/78 H 96 Room Air 2 03/09/25 08:00 03/09/25 08:00 03/09/25 08:00 03/09/25 08:00 03/09/25 08:00 03/09/25 08:02 03/09/25 06:04 FiO2 28 03/09/25 06:04 Laboratory Results - last 24 hr 03/08/25 15:11: APTT 47.0 L 03/08/25 18:19: Sodium 133 L, Potassium 4.0, Chloride 108 H, Carbon Dioxide 18 L, Anion Gap 11.0, BUN 47 H, Creatinine 1.90 H D, Estimated Creat Clear 52, Estimated GFR 36 L, Est GFR ( Amer) 43 L D, Glucose 124 H D, Calcium 8.2 L 03/08/25 23:16: APTT 55.0 03/09/25 05:18: WBC 6.4 D, RBC 3.33 L, Hgb 9.9 L, Hct 29.5 L, MCV 88.6, MCH 29.7, MCHC 33.6, RDW 15.2, Plt Count 164, MPV 9.4, Neut % (Auto) 73.6, Lymph % (Auto) 12.0, [place] % (Auto) 12.0 H, Eos % (Auto) 1.4, Baso % (Auto) 0.2, Neut # (Auto) 4.7, Lymph # (Auto) 0.8, [place] # (Auto) 0.8, Eos # (Auto) 0.1, Baso # (Auto) 0.0, ESR > 140 H, APTT 55.0, Sodium 132 L, Potassium 3.8, Chloride 110 H, Carbon Dioxide 17 L, Anion Gap 8.8, BUN 39 H, Creatinine 1.50 H D, Estimated Creat Clear 68, Estimated GFR 47 L, Est GFR ( Amer) 56 L D, Glucose 104 H, Calcium 8.3 L, Total Bilirubin 0.4, AST 59, ALT 31 D, Alkaline Phosphatase 58, C-Reactive Protein 228.0 H, Total Protein 6.3, Albumin 3.3 L D, Globulin 3.0, Albumin/Globulin Ratio 1.1 I & O for Last 24 hours: Intake & Output 03/06/25 03/07/25 03/08/25 03/09/25 23:59 23:59 23:59 23:59 Intake Total 1949 1881.267 / 2131.267 1168.733 / 1168.733 Output Total 1400 / 1400 500 / 500 Balance 1949 481.267 / 731.267 668.733 / 668.733 Weight 216 lb 8 oz 215 lb 9.617 oz 220 lb 12.8 oz Microbiology Reports for the Last 24 Hours: Microbiology 03/07/25 14:25 Blood Blood Culture - Preliminary Gram Positive Cocci 03/07/25 14:45 Blood Blood Culture - Preliminary Gram Positive Cocci Constitutional Constitutional: no acute distress *Routine Respiratory Exam Respiratory: Present CTA bilaterally and symmetric chest movement *Routine Cardiovascular Exam Cardiovascular: Present Normal S1, Normal S2 and irregularly irregular *Routine Abdominal Exam Abdominal: Present soft and normoactive bowel sounds; Absent tenderness *Routine Extremities Exam Extremities: Present full ROM and normal capillary refill; Absent edema *Routine Skin Exam Skin: Present intact, dry and warm Detailed Neck Exam: Thyroids Thyroid: Absent bruit Progress Note: A&P Assessment and plan (1) Bacteremia due to methicillin resistant Staphylococcus aureus: Status: Acute (2) SIRS (systemic inflammatory response syndrome): Status: Ruled-out (3) Pulmonary embolism: Status: Acute (4) Non-ST elevation ME (NSTEMI): Status: Acute (5) Staphylococcus aureus bacteremia: Status: Acute (6) PAF (paroxysmal atrial fibrillation): Status: Acute Assessment and Plan Assessment and Plan for All Diagnoses:: Sepsis MRSA bacteremia Defer to primary service for antibiotic management and repeat blood cultures Repeat limited echo: The aortic valve is mildly thickened but no evidence of mobile echodensity. Mitral valve opens well. No evidence of mitral valve echodensity, tricuspid valve leaflets open well no evidence of TV echodensities. Pulmonic valve is not well-visualized in the study. No evidence of significant valvular regurgitation or stenosis. TTE is highly sensitive or specific for evaluation of endocarditis especially for echodensities less than 1 cm in size. If clinical suspicion persists further evaluation is suggested with SHANIKA SHANIKA previously not completed due to source of infection identified and no evidence of vegetation or mobile echodensities were noted on TTE, however, given reoccurrence of positive blood cultures will consider proceeding with SHANIKA for evaluation for possible endocarditis as source of bacteremia on outpatient basis JANAK-improving Creatinine 2.2-1.5 Gentle fluids Pulmonary embolism CTA chest positive for right lower lobe PE. Transition from hep drip to xarelto 15 mg twice daily for 21 days followed by 20 mg once daily History of A-fib Currently rate controlled. Start Xarelto History of coronary artery disease Acute myocardial injury in the setting of sepsis, bacteremia and right-sided PE Troponin 1.7 on admission trending down to 1.49 EKG negative for STEMI Left heart catheterization 12/31/2024-3 JEANNE to RCA Continue Plavix. Patient is on Repatha. Statin intolerant Continue Imdur 30 mg p.o. twice daily Continue Ranexa 1000 mg p.o. twice daily No plan for intervention at this time History of heart failure with reduced ejection fraction Status post AICD Echo 12/2024 shows an EF of 40%. No obvious evidence of vegetation or mobile echodensities noted on TTE. Cardiology implant summary from [facility] reviewed and shows less than 1% A. tach A-fib burden with episodes of SVT and NSVT Continue metoprolol succinate 100 mg p.o. daily and irbesartan 150 mg p.o. daily. Jardiance currently on hold due to concern for UTI. Will consider aldactone after sepsis treatment. CV summary 03/09/2025: No signs of endocarditis noted on repeat limited echo. Will proceed with SHANIKA on outpatient basis. Will defer IV antibiotics management to Primary service. Can transition patient from heparin to Xarelto. Cardiology will sign off. Please have patient follow-up in cardiology clinic on Saturday for reevaluation. Cardiac meds: Xarelto 15 mg p.o. twice daily for 21 days then 20 mg daily Plavix 75 mg p.o. daily Imdur 30 mg p.o. twice daily Ranexa 1000 mg p.o. twice daily Metoprolol succinate 100 mg p.o. daily Irbesartan 150 mg p.o. daily
--- NOTE | 2025-03-09 10:40 | HMH.PHAAMS2 ---
- Antimicrobial Stewardship Review culture & sensitivity review Stewardship interventions: culture & sensitivity review (CURRENTLY RECEIVING CEFEPIME 2 MG Q12H, WBC DECREASED FROM 12.2K TO 6.4K, AFEBRILE, GRAM + COCCI IN BLOOD CX FROM 03/07/25. NEW BLD CX PENDING.)
[2025-03-09 11:16] LABS: PTT Heparin (inpatient only) 50.8 Seconds (50-75)
[2025-03-09 11:29] LABS: Procalcitonin 3.38 ng/mL (0.0-2.0)
[2025-03-09] MEDS: NICOTINE 21MG/24HR PATCH 21 MG TD (12:17)
[2025-03-09] MEDS: HEPARIN 25,000 UNITS/D5W 500 ML 30 UNIT IV (12:18)
[2025-03-09 15:05] LABS: Acinetobacter calcoaceticus-ba Not Detected; Bacteroides fragilis Not Detected; Candida auris Not Detected; Candida glabrata Not Detected; Enterobacterales Not Detected; Enterococcus faecalis Not Detected; Enterococcus faecium Not Detected; Klebsiella aerogenes Not Detected; Klebsiella pneumoniae grp Not Detected; Proteus spp. Not Detected; Salmonella spp. Not Detected; Serratia marcescens Not Detected; Staphylococcus epidermidis Not Detected; Staphylococcus lugdunensis Not Detected; Staphylococcus spp. Detected; Stenotrophomonas maltophilia Not Detected; Streptococcus agalactiae(GrpB) Not Detected; Streptococcus pyogenes Group A Not Detected; Streptococcus spp. Not Detected; mecA/C and MREJ (MRSA) Detected
[2025-03-09 15:20] LABS: Acinetobacter calcoaceticus-ba Not Detected; Bacteroides fragilis Not Detected; Candida auris Not Detected; Candida glabrata Not Detected; Enterobacterales Not Detected; Enterococcus faecalis Not Detected; Enterococcus faecium Not Detected; Klebsiella aerogenes Not Detected; Klebsiella pneumoniae grp Not Detected; Proteus spp. Not Detected; Salmonella spp. Not Detected; Serratia marcescens Not Detected; Staphylococcus epidermidis Not Detected; Staphylococcus lugdunensis Not Detected; Staphylococcus spp. Detected; Stenotrophomonas maltophilia Not Detected; Streptococcus agalactiae(GrpB) Not Detected; Streptococcus pyogenes Group A Not Detected; Streptococcus spp. Not Detected; mecA/C and MREJ (MRSA) Detected
--- NOTE | 2025-03-09 15:22 | EXP.PN ---
Subjective *Date: 03/09/25 *Time: 17:57 Interval history: Patient is feeling weaker today, blood cultures again positive for MRSA. Continue IV vancomycin, discontinue cefepime as no other focal infection. Follow-up repeat blood cultures. Cardiology started rivaroxaban for new PE. Exam Data for Last 24 hours Vital signs and Labs for Last 24 Hours: Temp Pulse Resp BP Pulse Ox O2 Del Method O2 Flow Rate 98.4 F 67 16 129/52 L 96 Room Air 2 03/09/25 12:00 03/09/25 12:00 03/09/25 12:00 03/09/25 12:00 03/09/25 12:00 03/09/25 12:00 03/09/25 06:04 FiO2 28 03/09/25 06:04 Laboratory Results - last 24 hr 03/08/25 15:11: APTT 47.0 L 03/08/25 18:19: Sodium 133 L, Potassium 4.0, Chloride 108 H, Carbon Dioxide 18 L, Anion Gap 11.0, BUN 47 H, Creatinine 1.90 H D, Estimated Creat Clear 52, Estimated GFR 36 L, Est GFR ( Amer) 43 L D, Glucose 124 H D, Calcium 8.2 L 03/08/25 23:16: APTT 55.0 03/09/25 05:18: WBC 6.4 D, RBC 3.33 L, Hgb 9.9 L, Hct 29.5 L, MCV 88.6, MCH 29.7, MCHC 33.6, RDW 15.2, Plt Count 164, MPV 9.4, Neut % (Auto) 73.6, Lymph % (Auto) 12.0, [place] % (Auto) 12.0 H, Eos % (Auto) 1.4, Baso % (Auto) 0.2, Neut # (Auto) 4.7, Lymph # (Auto) 0.8, [place] # (Auto) 0.8, Eos # (Auto) 0.1, Baso # (Auto) 0.0, ESR > 140 H, APTT 55.0, Sodium 132 L, Potassium 3.8, Chloride 110 H, Carbon Dioxide 17 L, Anion Gap 8.8, BUN 39 H, Creatinine 1.50 H D, Estimated Creat Clear 68, Estimated GFR 47 L, Est GFR ( Amer) 56 L D, Glucose 104 H, Calcium 8.3 L, Total Bilirubin 0.4, AST 59, ALT 31 D, Alkaline Phosphatase 58, C-Reactive Protein 228.0 H, Total Protein 6.3, Albumin 3.3 L D, Globulin 3.0, Albumin/Globulin Ratio 1.1, Procalcitonin 3.38 H 03/09/25 10:53: APTT 50.8 I & O for Last 24 hours: Intake & Output 03/06/25 03/07/25 03/08/25 03/09/25 23:59 23:59 23:59 23:59 Intake Total 1949 1881.267 / 2131.267 1359.133 / 1359.133 Output Total 1400 / 1400 500 / 500 Balance 1949 481.267 / 731.267 859.133 / 859.133 Weight 98.203 kg 97.795 kg 100.153 kg Microbiology Reports for the Last 24 Hours: Microbiology 03/07/25 14:25 Blood Blood Culture - Preliminary Gram Positive Cocci 03/07/25 14:45 Blood Blood Culture - Preliminary Gram Positive Cocci Constitutional Constitutional: no acute distress *Routine Respiratory Exam Respiratory: Present CTA bilaterally and symmetric chest movement *Routine Cardiovascular Exam Cardiovascular: Present Normal S1, Normal S2 and irregularly irregular *Routine Abdominal Exam Abdominal: Present soft and normoactive bowel sounds; Absent tenderness *Routine Extremities Exam Extremities: Present full ROM and normal capillary refill; Absent edema *Routine Skin Exam Skin: Present intact, dry and warm Detailed Neck Exam: Thyroids Thyroid: Absent bruit Assessment and Plan *Assessment and plan (1) Bacteremia due to methicillin resistant Staphylococcus aureus: Status: Acute Category: Medical Code(s): R78.81 - Bacteremia; B95.62 - Methicillin resistant Staphylococcus aureus infection as the cause of diseases classified elsewhere (2) Pulmonary embolism: Status: Acute Category: Medical Code(s): I26.99 - Other pulmonary embolism without acute cor pulmonale (3) HFrEF (heart failure with reduced ejection fraction): Status: Acute Category: Medical Code(s): I50.20 - Unspecified systolic (congestive) heart failure (4) COPD (chronic obstructive pulmonary disease): Status: Chronic Qualifiers: COPD type: emphysema Emphysema type: other Qualified Code(s): J43.8 - Other emphysema Category: Medical Code(s): J44.9 - Chronic obstructive pulmonary disease, unspecified (5) CAD (coronary artery disease): Status: Chronic Qualifiers: Associated angina: with stable angina Coronary Disease-Associated Artery/Lesion type: [place] artery [place] vs. transplanted heart: [place] heart Qualified Code(s): I25.118 - Atherosclerotic heart disease of [place] coronary artery with other forms of angina pectoris Category: Medical Code(s): I25.10 - Atherosclerotic heart disease of [place] coronary artery without angina pectoris (6) Essential hypertension: Status: Chronic Category: Medical Code(s): I10 - Essential (primary) hypertension (7) PAF (paroxysmal atrial fibrillation): Status: Acute Category: Medical Code(s): I48.0 - Paroxysmal atrial fibrillation (8) Generalized weakness: Status: Acute Category: Medical Code(s): R53.1 - Weakness Plan Mr. Thurman is a 69-year-old male with A-fib, SVT, HFrEF, LHC with JEANNE, GERD, COPD, obesity, tobacco dependence, PAD, CAD, and pacemaker. Presented to the ER with shortness of breath. Workup found SIRS, JANAK, PE, NSTEMI. Discussed case with ER physician, request admission for further treatment of SIRS while awaiting cultures and management of NSTEMI and JANAK. Severe sepsis, resolved MRSA bacteremia - Meeting SIRS criteria with tachycardia, endorgan damage, tachypnea, fever. Blood culture positive for MRSA. Had similar infection 2 months ago that was thought to have resolved. ? Today WBC 6.4, procalcitonin elevated to 3.38, CRP 228, ESR greater than 140. Patient is feeling a little weaker today, no focal symptoms. ? Blood cultures x 2 from yesterday also positive for MRSA, will repeat again today. ? Continue IV vancomycin, pharmacy to dose. Discontinue cefepime. - Will need at least 6 weeks of antibiotics. ? Discussed with cardiology, recommended continued IV antibiotics and will follow-up with an outpatient SHANIKA. Inpatient TTE unremarkable for endocarditis. #Right pulmonary embolism #NSTEMI, type II ? CTA on admission Revealing right lower lobe pulmonary embolism with no evidence of RV strain. ECHO also showed no RV strain. ? Initial troponin 1.78, down trended to 0.62. In the setting of recent PCI on 12/31/2024 stents, and PE. ? Discussed with cardiology, will switch from Eliquis to rivaroxaban 21 mg twice daily for 21 days then 20 mg daily. ? Continue home Plavix 75 mg, statin. #JANAK ? Initial creatinine 2.2, bumped to 2.6, improved to 1.5. With gentle IV fluids. #A-fib ? Continue home metoprolol succinate 100 mg, Imdur 30 mg twice daily, started rivaroxaban as above. #CAD Heart failure with reduced ejection fraction, EF 40% Hypertension Hyperlipidemia ? Left heart cath performed 12/31/2024. Patient received 3 contiguous stents to the RCA. - Echo obtained in December shows mild to moderate reduced LV, 40%. Severe hypokinesis of the distal and apical LV burgess. No valvular stenosis or regurgitation noted. ?Patient has dual-chamber ICD in place ? Continue home Plavix 75 mg, statin. #Tobacco use disorder #COPD with exacerbation ? Patient states he is a daily smoker approximately 1 PPD. - Continue home Trelegy. #Mood disorder: Continue Wellbutrin 150 mg daily. Full code Heparin drip Cardiac diet
[2025-03-09 16:23] LABS: PTT Heparin (inpatient only) 46.6 Seconds (50-75)
[2025-03-09] MEDS: METOPROLOL SUCCINATE XL 100MG TABLET 100 MG PO (20:48)
[2025-03-10] VITALS (13 sets, daily range): BP systolic 124–164; BP diastolic 59–81; PULSE 70–90; RESP 16–17; TEMP 36.5–36.8; O2SAT 94–98; BMI 32.8
[2025-03-10] MEDS: CEFEPIME HCL 2 GM in 0.9 % SODIUM CHLORIDE 100 ML IV (02:00)
--- NOTE | 2025-03-10 04:59 | ECG_ITS ---
APPROVED REPORT Exam: Resting ECG HR:70 bpm ECG Measurements Heart Rate 70 AXES PA 147 P 69 QRSd 130 QRS 11 QT 424 T 82 QTc 446 Conclusion SINUS RHYTHM Borderline LAD with NS STTW changes in anteroseptal leads ABNORMAL ECG UNCONFIRMED REPORT Electronically signed by : Rick Vernon MD 03/10/2025 11:40:07
[2025-03-10 05:30] LABS: Clostridium Difficile A/B, PCR Not Detected (NotDetected); Cyclospora Cayetanesis Not Detected (NotDetected); Salmonella, PCR Not Detected (NotDetected); Shiga-like toxin E coli Not Detected (NotDetected); Shigella Enterovasive E coli Not Detected (NotDetected); Vibrio, PCR Not Detected (NotDetected); Yersinia Entercolitica, PCR Not Detected (NotDetected)
--- NOTE | 2025-03-10 05:43 | PC.NURSE ---
At approximately 04:20 patient called out and stated that he was in the bathroom having a bowel movement when he started to have chest pain. patient stated that he took his home prescribed nitro that he had with him in his room. Luh SNYDER was notified and a 12 lead EKG and vital signs were obtained. patient stated that the pain had went away after he took the nitro.
[2025-03-10] MEDS: FLUTICASONE/UMECLIDIN/VILANTER 100/62.5/25MCG INHALER 1 PUFF IH (06:00)
[2025-03-10] MEDS: IPRATROPIUM/ALBUTEROL 3 ML NEB IH ×3 (06:13→18:35)
[2025-03-10 06:18] LABS: Hematocrit 30.1 % (42.0-52.0); Hemoglobin 9.5 g/dL (14.1-18.0); Immature Granulocytes % 0.6 %; Mean Corpuscular HGB Conc 31.6 g/dL (31.8-35.4); Mean Corpuscular Hemoglobin 28.5 pg (27.0-31.2); Mean Corpuscular Volume 90.4 fl (80-94); Nucleated Red Blood Cells % 0 %; Platelet Count 171 K/mm3 (142-424); Red Blood Count 3.33 M/mm3 (4.60-6.20); Red Cell Distribution Width-SD 52.8 fL; White Blood Count 5.1 K/mm3 (4.8-10.8)
[2025-03-10 06:31] LABS: Albumin Level 3.3 g/dl (3.5-5.0); Chloride 113 mmol/L (98-107)
[2025-03-10 06:32] LABS: Potassium 3.7 mmoL/L (3.5-5.1); Sodium 137 mmol/L (136-145)
[2025-03-10 06:34] LABS: Alanine Aminotransferase 42 U/L (12-78); Albumin/Globulin Ratio 1.1 (1.1-1.8); Anion Gap 10.7 mEq/L (5-15); Aspartate Amino Transferase 48 U/L (17-59); Blood Urea Nitrogen 29 mg/dl (9-20); Carbon Dioxide 17 mmol/L (22.0-30.0); Creatinine Clearance Estimated 100 mL/min (50-200); Creatinine,Serum 1.00 mg/dl (0.66-1.25); Estimated Glomerular Filt Rate 75 ml/min (>60); GFR (African American) 90 ML/MIN (>60); Globulin 3.1 g/dL (1.3-3.2); Total Protein,Serum 6.4 g/dl (6.3-8.2)
[2025-03-10 06:35] LABS: Alkaline Phosphatase 65 U/L (38-126); Bilirubin,Total 0.3 mg/dl (0.2-1.3); Calcium 8.3 mg/dl (8.4-10.2); Glucose 119 mg/dl (74-100)
[2025-03-10 06:41] LABS: C-Reactive Protein 144.1 mg/L (0-4)
--- NOTE | 2025-03-10 07:50 | EXP.PHA.CONS ---
Pharmacy Consult Date: 03/10/25 Time: 07:50 Referring provider: DR. RG Reason for Consult:: VANCOMYCIN DOSING Allergies Allergy/AdvReac Type Severity Reaction Status Date / Time rosuvastatin (From Crestor) Allergy Mild Back Pain Verified 02/02/25 15:03 Home Medications ?Medication ?Instructions ?Recorded ?Confirmed ?Type aspirin 81 mg tablet,delayed 81 mg PO DAILY 04/10/17 03/07/25 History release (Adult Low Dose Aspirin) bupropion HCl 150 mg tablet,12 hr 150 mg PO DAILY 04/10/17 03/07/25 History sustained-release fluticasone fur. 100 mcg-umeclid 1 inh inhalation DAILY 10/19/21 03/07/25 History 62.5 mcg-vilant 25 mcg inhalat.powder (Trelegy Ellipta) nitroglycerin 0.4 mg sublingual 0.4 mg sublingual Q5MINP PRN chest 09/17/23 03/07/25 History tablet (Nitrostat) pain ranolazine 1,000 mg 1,000 mg PO BID 12/29/24 03/07/25 History tablet,extended release,12 hr apixaban 5 mg tablet (Eliquis) 5 mg PO BID #60 tabs 12/30/24 03/07/25 Rx clopidogrel 75 mg tablet 75 mg PO DAILY 30 days #30 tabs 12/30/24 03/07/25 Rx metoprolol succinate 100 mg 100 mg PO HS 30 days #30 tabs 12/30/24 03/07/25 Rx tablet,extended release 24 hr empagliflozin 10 mg tablet 10 mg PO DAILY 30 days #30 tabs 01/12/25 03/07/25 Rx (Jardiance) olmesartan 20 mg tablet 20 mg PO DAILY #30 tabs 01/28/25 03/07/25 Rx isosorbide mononitrate 30 mg 30 mg PO BID #30 tabs 02/02/25 03/07/25 Rx tablet,extended release 24 hr New Prescriptions to Start Prescriptions: Height: 1.73 m Weight: 98.293 kg Laboratory Results:: Laboratory Results - last 24 hr 03/08/25 18:16: A. baumannii (PCR) Not detected, Bacteroides fragilis Not detected, Chela albicans (PCR) Not detected, Chela auris (PCR) Not detected, C. glabrata (PCR) Not detected, C. krusei (PCR) Not detected, C. parapsilosis (PCR) Not detected, C. tropicalis (PCR) Not detected, Cryptococcus neoformans PCR Not detected, Enterobacterales (PCR) Not detected, Enterococc faecalis PCR Not detected, Enterococc faecium PCR Not detected, E. coli (PCR) Not detected, H. influenzae DNA Not detected, Klebsiella aerogenes (PCR) Not detected, Klebsiella oxytoca PCR Not detected, K. pneumoniae group (PCR) Not detected, List. monocytogenes PCR Not detected, N. meningitidis (PCR) Not detected, Proteus species (PCR) Not detected, Salmonella spp. (PCR) Not detected, Serratia marcescens PCR Not detected, Staphylococcus sp PCR Detected A, Staph aureus (PCR) Detected A, mecA/C & MREJ Resist Gene Detected A, mecA/C-Methicil Resis Gene Not applicable, Staph epidermidis (PCR) Not detected, Staph lugdunensis (TEM-PCR) Not detected, S. maltophilia (PCR) Not detected, Streptococcus sp PCR Not detected, S.agalactiae Grp B LIZZY Not detected, Strep pneumoniae (PCR) Not detected, S. pyogenes GrpA LIZZY Not detected, P. aeruginosa (PCR) Not detected, Abimbola/B-Vanco Res Genes Not applicable, blaIMP Car res Gene PCR Not applicable, KPC-Carbap Res Gene PCR Not applicable, blaNDM Car Res Gene PCR Not applicable, OXA-48 Carbapenem Resis Gene (PCR) Not applicable, blaVIM Car Res Gene PCR Not applicable, CTX-M Gene Resistance (PCR) Not applicable, MCR-1 Resistance Gene Not applicable 03/08/25 18:19: A. baumannii (PCR) Not detected, Bacteroides fragilis Not detected, Chela albicans (PCR) Not detected, Chela auris (PCR) Not detected, C. glabrata (PCR) Not detected, C. krusei (PCR) Not detected, C. parapsilosis (PCR) Not detected, C. tropicalis (PCR) Not detected, Cryptococcus neoformans PCR Not detected, Enterobacterales (PCR) Not detected, Enterococc faecalis PCR Not detected, Enterococc faecium PCR Not detected, E. coli (PCR) Not detected, H. influenzae DNA Not detected, Klebsiella aerogenes (PCR) Not detected, Klebsiella oxytoca PCR Not detected, K. pneumoniae group (PCR) Not detected, List. monocytogenes PCR Not detected, N. meningitidis (PCR) Not detected, Proteus species (PCR) Not detected, Salmonella spp. (PCR) Not detected, Serratia marcescens PCR Not detected, Staphylococcus sp PCR Detected A, Staph aureus (PCR) Detected A, mecA/C & MREJ Resist Gene Detected A, mecA/C-Methicil Resis Gene Not applicable, Staph epidermidis (PCR) Not detected, Staph lugdunensis (TEM-PCR) Not detected, S. maltophilia (PCR) Not detected, Streptococcus sp PCR Not detected, S.agalactiae Grp B LIZZY Not detected, Strep pneumoniae (PCR) Not detected, S. pyogenes GrpA LIZZY Not detected, P. aeruginosa (PCR) Not detected, [place]/B-Vanco Res Genes Not applicable, blaIMP Car res Gene PCR Not applicable, KPC-Carbap Res Gene PCR Not applicable, blaNDM Car Res Gene PCR Not applicable, OXA-48 Carbapenem Resis Gene (PCR) Not applicable, blaVIM Car Res Gene PCR Not applicable, CTX-M Gene Resistance (PCR) Not applicable, MCR-1 Resistance Gene Not applicable 03/09/25 05:18: Procalcitonin 3.38 H 03/09/25 10:53: APTT 50.8 03/09/25 15:39: APTT 46.6 L 03/10/25 05:00: Stl C. cayetanensis PCR Not detected, Stool Campylobacter PCR Not detected, Stl C.difficile Tox PCR Not detected, Stool Cryptosporidium PCR Not detected, Stl E.coli Shiga Tox PCR Not detected, Stool Giardia Lamblia PCR Not detected, Stool Salmonella PCR Not detected, Stl Shigella/EIEC PCR Not detected, St Y.enterocolitica PCR Not detected, Stool Vibrio (PCR) Not detected, Stl Norovirus GI/GII PCR Not detected 03/10/25 05:20: WBC 5.1, RBC 3.33 L, Hgb 9.5 L, Hct 30.1 L, MCV 90.4, MCH 28.5, MCHC 31.6 L, RDW 15.8, Plt Count 171, MPV 9.7, Neut % (Auto) 67.3, Lymph % (Auto) 17.6, [place] % (Auto) 12.5 H, Eos % (Auto) 1.8, Baso % (Auto) 0.2, Neut # (Auto) 3.4, Lymph # (Auto) 0.9, [place] # (Auto) 0.6, Eos # (Auto) 0.1, Baso # (Auto) 0.0, ESR > 140 H, Sodium 137, Potassium 3.7, Chloride 113 H, Carbon Dioxide 17 L, Anion Gap 10.7, BUN 29 H D, Creatinine 1.00 D, Estimated Creat Clear 100, Estimated GFR 75, Est GFR ( Amer) 90 D, Glucose 119 H, Calcium 8.3 L, Total Bilirubin 0.3, AST 48, ALT 42 D, Alkaline Phosphatase 65, C-Reactive Protein 144.1 H, Total Protein 6.4, Albumin 3.3 L, Globulin 3.1, Albumin/Globulin Ratio 1.1 Medical History: Medical History (Updated 03/08/25 @ 13:15 by Rudi Westfall MD) Dizziness Crescendo angina Atypical angina SVT (supraventricular tachycardia) HFrEF (heart failure with reduced ejection fraction) Ventricular tachycardia Impotence Typical angina NYHA Class III cardiovascular function Post-operative complication Gynecomastia HHD (hypertensive heart disease) HLD (hyperlipidemia) CAD (coronary artery disease) Multiple nodules of lung Diastolic heart failure Obesity PAD (peripheral artery disease) Essential hypertension COPD (chronic obstructive pulmonary disease) GERD (gastroesophageal reflux disease) PVC (premature ventricular contraction) Systolic heart failure Tobacco dependence syndrome Assessment and Plan Assessment and plan all Dx Assessment and Plan for all problems:: Pharmacokinetic dosing service Objective: Patient: Floor: Age: 69 yo Serum creatinine: 1 mg/dL Height: 68.1 Inches Weight (kg): 98 Assessment: IBW (kg): 68.63 Dosing wt(kg): 98 Estimated Creatinine clearance (ml/min): 69.6 CRCL method: Cockcroft and Gault using ibw(default). Drug selected: Vancomycin Loading dose (mg): 0 Vd (liters): 83.3 (factor used: 0.85 L/kg) Daniel (hr-1): 0.062 Half life (hrs): 11.18 Recommended dose: 1500 mg Interval: 12 hrs Infusion time (hrs): 2.0 Predicted peak (mcg/mL): 32.3 Predicted trough (mcg/mL): 17.38 Total body weight is being used for vancomycin dosing. Recommendations: STARTED VANCOMYCIN 2000 MG X1 DOSE THEN Give Vancomycin 1500 mg q 12 hrs with an expected Cpeak of 32.3 mcg/ml and an expected Ctrough of 17.38 mcg/ml ----Vanco only - ignore for aminoglycosides----- CLvanco= 5.16 L/hr AUC 0-24 /RAÚL Data: RAÚL 0.5 mcg/mL: AUC/RAÚL: 1162.8 RAÚL 1.0 mcg/mL: AUC/RAÚL: 581.4 --------- RAÚL 1.5 mcg/mL: AUC/RAÚL: 387.6 RAÚL 2.0 mcg/mL: AUC/RAÚL: 290.7
[2025-03-10] MEDS: CLOPIDOGREL 75MG TAB 75 MG PO (08:05)
[2025-03-10] MEDS: NICOTINE 21MG/24HR PATCH 21 MG TD (08:05)
[2025-03-10] MEDS: ISOSORBIDE MONO 30MG TAB.ER.24H 30 MG PO (08:05)
[2025-03-10] MEDS: IRBESARTAN 150MG TAB 150 MG PO (08:05)
[2025-03-10] MEDS: VANCOMYCIN HCL 2,000 MG in 0.9 % SODIUM CHLORIDE 250 ML 125 MG IV (08:06)
[2025-03-10] MEDS: RANOLAZINE 500MG ER TABLET 1000 MG PO ×2 (08:06→20:05)
--- NOTE | 2025-03-10 09:21 | HMH.PHAAMS2 ---
- Antimicrobial Stewardship Review culture & sensitivity review Stewardship interventions: culture & sensitivity review, reviewed - no change Comments: REPEAT BLOOD CX PENDING FROM 03/09/25, BLOOD CX FROM 03/08/25 POSITIVE FOR MRSA AND 03/07/25 POSITIVE FOR GRAM POS COCCI, PATIENT STARTED ON VANCOMYCIN BY MD THIS MORNING FOR MRSA BACTEREMIA. WBC REMAIN IN NORMAL LIMITS AT 5.1 K/mm3, AFEBRILE OVER PREVIOUS 24 HRS
[2025-03-10 09:31] LABS: Procalcitonin 1.61 ng/mL (0.0-2.0)
--- NOTE | 2025-03-10 13:13 | P.PN_ITS ---
Subjective *Date: 03/10/25 *Time: 14:01 Interval history: Patient feels slightly better, will continue IV vancomycin for MRSA bacteremia. Cardiology adjusting medications for chest pain, also started prednisone for ongoing wheezing with shortness of breath. Follow-up CXR. Exam Data for Last 24 hours Vital signs and Labs for Last 24 Hours: Temp Pulse Resp BP Pulse Ox O2 Del Method O2 Flow Rate 98.1 F 74 16 140/79 98 Room Air 2 03/10/25 12:00 03/10/25 12:00 03/10/25 12:00 03/10/25 12:00 03/10/25 12:00 03/10/25 11:00 03/09/25 18:30 FiO2 28 03/09/25 06:04 Laboratory Results - last 24 hr 03/08/25 18:16: A. baumannii (PCR) Not detected, Bacteroides fragilis Not detected, Chela albicans (PCR) Not detected, Chela auris (PCR) Not detected, C. glabrata (PCR) Not detected, C. krusei (PCR) Not detected, C. parapsilosis (PCR) Not detected, C. tropicalis (PCR) Not detected, Cryptococcus neoformans PCR Not detected, Enterobacterales (PCR) Not detected, Enterococc faecalis PCR Not detected, Enterococc faecium PCR Not detected, E. coli (PCR) Not detected, H. influenzae DNA Not detected, Klebsiella aerogenes (PCR) Not detected, Klebsiella oxytoca PCR Not detected, K. pneumoniae group (PCR) Not detected, List. monocytogenes PCR Not detected, N. meningitidis (PCR) Not detected, Proteus species (PCR) Not detected, Salmonella spp. (PCR) Not detected, Serratia marcescens PCR Not detected, Staphylococcus sp PCR Detected A, Staph aureus (PCR) Detected A, mecA/C & MREJ Resist Gene Detected A, mecA/C-Methicil Resis Gene Not applicable, Staph epidermidis (PCR) Not detected, Staph lugdunensis (TEM-PCR) Not detected, S. maltophilia (PCR) Not detected, Streptococcus sp PCR Not detected, S.agalactiae Grp B LIZZY Not detected, Strep pneumoniae (PCR) Not detected, S. pyogenes GrpA LIZZY Not detected, P. aeruginosa (PCR) Not detected, [place]/B-Vanco Res Genes Not applicable, blaIMP Car res Gene PCR Not applicable, KPC-Carbap Res Gene PCR Not applicable, blaNDM Car Res Gene PCR Not applicable, OXA-48 Carbapenem Resis Gene (PCR) Not applicable, blaVIM Car Res Gene PCR Not applicable, CTX-M Gene Resistance (PCR) Not applicable, MCR-1 Resistance Gene Not applicable 03/08/25 18:19: A. baumannii (PCR) Not detected, Bacteroides fragilis Not detected, Chela albicans (PCR) Not detected, Chela auris (PCR) Not detected, C. glabrata (PCR) Not detected, C. krusei (PCR) Not detected, C. parapsilosis (PCR) Not detected, C. tropicalis (PCR) Not detected, Cryptococcus neoformans PCR Not detected, Enterobacterales (PCR) Not detected, Enterococc faecalis PCR Not detected, Enterococc faecium PCR Not detected, E. coli (PCR) Not detected, H. influenzae DNA Not detected, Klebsiella aerogenes (PCR) Not detected, Klebsiella oxytoca PCR Not detected, K. pneumoniae group (PCR) Not detected, List. monocytogenes PCR Not detected, N. meningitidis (PCR) Not detected, Proteus species (PCR) Not detected, Salmonella spp. (PCR) Not detected, Serratia marcescens PCR Not detected, Staphylococcus sp PCR Detected A, Staph aureus (PCR) Detected A, mecA/C & MREJ Resist Gene Detected A, mecA/C-Methicil Resis Gene Not applicable, Staph epidermidis (PCR) Not detected, Staph lugdunensis (TEM-PCR) Not detected, S. maltophilia (PCR) Not detected, Streptococcus sp PCR Not detected, S.agalactiae Grp B LIZZY Not detected, Strep pneumoniae (PCR) Not detected, S. pyogenes GrpA LIZZY Not detected, P. aeruginosa (PCR) Not detected, [place]/B-Vanco Res Genes Not applicable, blaIMP Car res Gene PCR Not applicable, KPC-Carbap Res Gene PCR Not applicable, blaNDM Car Res Gene PCR Not applicable, OXA-48 Carbapenem Resis Gene (PCR) Not applicable, blaVIM Car Res Gene PCR Not applicable, CTX-M Gene Resistance (PCR) Not applicable, MCR-1 Resistance Gene Not applicable 03/09/25 15:39: APTT 46.6 L 03/10/25 05:00: Stl C. cayetanensis PCR Not detected, Stool Campylobacter PCR Not detected, Stl C.difficile Tox PCR Not detected, Stool Cryptosporidium PCR Not detected, Stl E.coli Shiga Tox PCR Not detected, Stool Giardia Lamblia PCR Not detected, Stool Salmonella PCR Not detected, Stl Shigella/EIEC PCR Not detected, St Y.enterocolitica PCR Not detected, Stool Vibrio (PCR) Not detected, Stl Norovirus GI/GII PCR Not detected 03/10/25 05:20: WBC 5.1, RBC 3.33 L, Hgb 9.5 L, Hct 30.1 L, MCV 90.4, MCH 28.5, MCHC 31.6 L, RDW 15.8, Plt Count 171, MPV 9.7, Neut % (Auto) 67.3, Lymph % (Auto) 17.6, [place] % (Auto) 12.5 H, Eos % (Auto) 1.8, Baso % (Auto) 0.2, Neut # (Auto) 3.4, Lymph # (Auto) 0.9, [place] # (Auto) 0.6, Eos # (Auto) 0.1, Baso # (Auto) 0.0, ESR > 140 H, Sodium 137, Potassium 3.7, Chloride 113 H, Carbon Dioxide 17 L, Anion Gap 10.7, BUN 29 H D, Creatinine 1.00 D, Estimated Creat Clear 100, Estimated GFR 75, Est GFR ( Amer) 90 D, Glucose 119 H, Calcium 8.3 L, Total Bilirubin 0.3, AST 48, ALT 42 D, Alkaline Phosphatase 65, C-Reactive Protein 144.1 H, Total Protein 6.4, Albumin 3.3 L, Globulin 3.1, Albumin/Globulin Ratio 1.1, Procalcitonin 1.61 I & O for Last 24 hours: Intake & Output 03/07/25 03/08/25 03/09/25 03/10/25 23:59 23:59 23:59 23:59 Intake Total 1949 1881.267 / 2131.267 2319.633 / 2439.633 710 / 710 Output Total 1400 / 1400 1350 / 1750 750 / 750 Balance 1949 481.267 / 731.267 969.633 / 689.633 -40 / -40 Weight 98.203 kg 97.795 kg 100.153 kg 98.293 kg Microbiology Reports for the Last 24 Hours: Microbiology 03/08/25 18:16 Blood Blood Culture - Preliminary 03/08/25 18:19 Blood Blood Culture - Preliminary 03/07/25 14:25 Blood Blood Culture - Preliminary Gram Positive Cocci 03/07/25 14:45 Blood Blood Culture - Preliminary Gram Positive Cocci Constitutional Constitutional: no acute distress *Routine Respiratory Exam Respiratory: Present CTA bilaterally and symmetric chest movement *Routine Cardiovascular Exam Cardiovascular: Present Normal S1, Normal S2 and irregularly irregular *Routine Abdominal Exam Abdominal: Present soft and normoactive bowel sounds; Absent tenderness *Routine Extremities Exam Extremities: Present full ROM and normal capillary refill; Absent edema *Routine Skin Exam Skin: Present intact, dry and warm Detailed Neck Exam: Thyroids Thyroid: Absent bruit Assessment and Plan *Assessment and plan (1) Bacteremia due to methicillin resistant Staphylococcus aureus: Status: Acute Category: Medical Code(s): R78.81 - Bacteremia; B95.62 - Methicillin resistant Staphylococcus aureus infection as the cause of diseases classified elsewhere (2) Pulmonary embolism: Status: Acute Category: Medical Code(s): I26.99 - Other pulmonary embolism without acute cor pulmonale (3) HFrEF (heart failure with reduced ejection fraction): Status: Acute Category: Medical Code(s): I50.20 - Unspecified systolic (congestive) heart failure (4) COPD (chronic obstructive pulmonary disease): Status: Chronic Qualifiers: COPD type: emphysema Emphysema type: other Qualified Code(s): J43.8 - Other emphysema Category: Medical Code(s): J44.9 - Chronic obstructive pulmonary disease, unspecified (5) CAD (coronary artery disease): Status: Chronic Qualifiers: Associated angina: with stable angina Coronary Disease-Associated Artery/Lesion type: [place] artery [place] vs. transplanted heart: [place] heart Qualified Code(s): I25.118 - Atherosclerotic heart disease of [place] coronary artery with other forms of angina pectoris Category: Medical Code(s): I25.10 - Atherosclerotic heart disease of [place] coronary artery without angina pectoris (6) Essential hypertension: Status: Chronic Category: Medical Code(s): I10 - Essential (primary) hypertension (7) PAF (paroxysmal atrial fibrillation): Status: Acute Category: Medical Code(s): I48.0 - Paroxysmal atrial fibrillation (8) Generalized weakness: Status: Acute Category: Medical Code(s): R53.1 - Weakness Plan Mr. Thurman is a 69-year-old male with A-fib, SVT, HFrEF, LHC with JEANNE, GERD, COPD, obesity, tobacco dependence, PAD, CAD, and pacemaker. Presented to the ER with shortness of breath. Workup found SIRS, JANAK, PE, NSTEMI. Discussed case with ER physician, request admission for further treatment of SIRS while awaiting cultures and management of NSTEMI and JANAK. Severe sepsis, resolved MRSA bacteremia - Meeting SIRS criteria with tachycardia, endorgan damage, tachypnea, fever. Blood culture positive for MRSA. Had similar infection 2 months ago that was thought to have resolved. ? Today WBC 5.1, procalcitonin downtrending from 3.38 to 1.61, CRP 228 to 144, ESR greater than 140. Patient is feeling a little better today, but continues to have intermittent chest pains. ? Two sets of blood cultures positive for MRSA, follow-up repeat cultures from 03/09/2025. ? Continue IV vancomycin, pharmacy to dose. Discontinue cefepime. - Will need at least 6 weeks of antibiotics. ? Discussed with cardiology, recommended continued IV antibiotics and will follow-up with an outpatient SHANIKA. Inpatient TTE unremarkable for endocarditis. #Right pulmonary embolism #NSTEMI, type II #Chest pain ? CTA on admission Revealing right lower lobe pulmonary embolism with no evidence of RV strain. ECHO also showed no RV strain. ? Initial troponin 1.78, down trended to 0.62. In the setting of recent PCI on 12/31/2024 with stents, and PE. ? Discussed with cardiology, will switch from Eliquis to rivaroxaban 15 mg twice daily for 21 days then 20 mg daily. ? Discussed with cardiology regarding patient's intermittent chest pains, increased Imdur to 30 mg 3 times daily, started amlodipine 5 mg, Lasix 20 mg daily. Follow-up response. ? Continue home Plavix 75 mg, statin. #JANAK ? Initial creatinine 2.2, bumped to 2.6, improved to 1.0 with gentle IV fluids. #A-fib ? Continue home metoprolol succinate 100 mg, started rivaroxaban as above. #CAD Heart failure with reduced ejection fraction, EF 40% Hypertension Hyperlipidemia ? Left heart cath performed 12/31/2024. Patient received 3 contiguous stents to the RCA. - Echo obtained in December shows mild to moderate reduced LV, 40%. Severe hypokinesis of the distal and apical LV burgess. No valvular stenosis or regurgitation noted. ?Patient has dual-chamber ICD in place ? Continue home Plavix 75 mg, statin. #Tobacco use disorder #COPD with exacerbation ? Patient states he is a daily smoker approximately 1 PPD. - Continue home Trelegy. Continue DuoNebs every 6 hours. ? Started prednisone 40 mg daily for ongoing shortness of breath, wheezing. #Mood disorder: Continue Wellbutrin 150 mg daily. Full code Heparin drip Cardiac diet
--- NOTE | 2025-03-10 14:07 | XR_ITS ---
FINAL REPORT TECHNIQUE: Single view chest CLINICAL HISTORY: Shortness of breath COMPARISON: 03/07/2025 FINDINGS: A single view of the chest was obtained. Edie sided pacemaker is in place. The heart and mediastinum are within normal limits. The lungs are clear. There is no pneumothorax. IMPRESSION: No acute cardiopulmonary process. Reviewed, Interpreted and Dictated by Nancy Salas MD Transcribed by Carolyn Sanchez Authenticated and [facility]
--- NOTE | 2025-03-10 14:10 | P.PN_ITS ---
Subjective Subjective Date: 03/10/25 Time: 14:00 Principal diagnosis: Sepsis Interval history: Morning labs reviewed. Patient complaining of intermittent episodes of both epigastric/midsternal chest pain as well as pain around AICD site since implantation in 2022. Exam Data for Last 24 hours Vital signs and Labs for Last 24 Hours: Temp Pulse Resp BP Pulse Ox O2 Del Method O2 Flow Rate 98.1 F 74 16 140/79 98 Room Air 2 03/10/25 12:00 03/10/25 12:00 03/10/25 12:00 03/10/25 12:00 03/10/25 12:00 03/10/25 11:00 03/09/25 18:30 FiO2 28 03/09/25 06:04 Laboratory Results - last 24 hr 03/08/25 18:16: A. baumannii (PCR) Not detected, Bacteroides fragilis Not detected, Chela albicans (PCR) Not detected, Chela auris (PCR) Not detected, C. glabrata (PCR) Not detected, C. krusei (PCR) Not detected, C. parapsilosis (PCR) Not detected, C. tropicalis (PCR) Not detected, Cryptococcus neoformans PCR Not detected, Enterobacterales (PCR) Not detected, Enterococc faecalis PCR Not detected, Enterococc faecium PCR Not detected, E. coli (PCR) Not detected, H. influenzae DNA Not detected, Klebsiella aerogenes (PCR) Not detected, Klebsiella oxytoca PCR Not detected, K. pneumoniae group (PCR) Not detected, List. monocytogenes PCR Not detected, N. meningitidis (PCR) Not detected, Proteus species (PCR) Not detected, Salmonella spp. (PCR) Not detected, Serratia marcescens PCR Not detected, Staphylococcus sp PCR Detected A, Staph aureus (PCR) Detected A, mecA/C & MREJ Resist Gene Detected A, mecA/C-Methicil Resis Gene Not applicable, Staph epidermidis (PCR) Not detected, Staph lugdunensis (TEM-PCR) Not detected, S. maltophilia (PCR) Not detected, Streptococcus sp PCR Not detected, S.agalactiae Grp B LIZZY Not detected, Strep pneumoniae (PCR) Not detected, S. pyogenes GrpA LIZZY Not detected, P. aeruginosa (PCR) Not detected, Abimbola/B-Vanco Res Genes Not applicable, blaIMP Car res Gene PCR Not applicable, KPC-Carbap Res Gene PCR Not applicable, blaNDM Car Res Gene PCR Not applicable, OXA-48 Carbapenem Resis Gene (PCR) Not applicable, blaVIM Car Res Gene PCR Not applicable, CTX-M Gene Resistance (PCR) Not applicable, MCR-1 Resistance Gene Not applicable 03/08/25 18:19: A. baumannii (PCR) Not detected, Bacteroides fragilis Not detected, Chela albicans (PCR) Not detected, Chela auris (PCR) Not detected, C. glabrata (PCR) Not detected, C. krusei (PCR) Not detected, C. parapsilosis (PCR) Not detected, C. tropicalis (PCR) Not detected, Cryptococcus neoformans PCR Not detected, Enterobacterales (PCR) Not detected, Enterococc faecalis PCR Not detected, Enterococc faecium PCR Not detected, E. coli (PCR) Not detected, H. influenzae DNA Not detected, Klebsiella aerogenes (PCR) Not detected, Klebsiella oxytoca PCR Not detected, K. pneumoniae group (PCR) Not detected, List. monocytogenes PCR Not detected, N. meningitidis (PCR) Not detected, Proteus species (PCR) Not detected, Salmonella spp. (PCR) Not detected, Serratia marcescens PCR Not detected, Staphylococcus sp PCR Detected A, Staph aureus (PCR) Detected A, mecA/C & MREJ Resist Gene Detected A, mecA/C-Methicil Resis Gene Not applicable, Staph epidermidis (PCR) Not detected, Staph lugdunensis (TEM-PCR) Not detected, S. maltophilia (PCR) Not detected, Streptococcus sp PCR Not detected, S.agalactiae Grp B LIZZY Not detected, Strep pneumoniae (PCR) Not detected, S. pyogenes GrpA LIZZY Not detected, P. aeruginosa (PCR) Not detected, [place]/B-Vanco Res Genes Not applicable, blaIMP Car res Gene PCR Not applicable, KPC-Carbap Res Gene PCR Not applicable, blaNDM Car Res Gene PCR Not applicable, OXA-48 Carbapenem Resis Gene (PCR) Not applicable, blaVIM Car Res Gene PCR Not applicable, CTX-M Gene Resistance (PCR) Not applicable, MCR-1 Resistance Gene Not applicable 03/09/25 15:39: APTT 46.6 L 03/10/25 05:00: Stl C. cayetanensis PCR Not detected, Stool Campylobacter PCR Not detected, Stl C.difficile Tox PCR Not detected, Stool Cryptosporidium PCR Not detected, Stl E.coli Shiga Tox PCR Not detected, Stool Giardia Lamblia PCR Not detected, Stool Salmonella PCR Not detected, Stl Shigella/EIEC PCR Not detected, St Y.enterocolitica PCR Not detected, Stool Vibrio (PCR) Not detected, Stl Norovirus GI/GII PCR Not detected 03/10/25 05:20: WBC 5.1, RBC 3.33 L, Hgb 9.5 L, Hct 30.1 L, MCV 90.4, MCH 28.5, MCHC 31.6 L, RDW 15.8, Plt Count 171, MPV 9.7, Neut % (Auto) 67.3, Lymph % (Auto) 17.6, [place] % (Auto) 12.5 H, Eos % (Auto) 1.8, Baso % (Auto) 0.2, Neut # (Auto) 3.4, Lymph # (Auto) 0.9, [place] # (Auto) 0.6, Eos # (Auto) 0.1, Baso # (Auto) 0.0, ESR > 140 H, Sodium 137, Potassium 3.7, Chloride 113 H, Carbon Dioxide 17 L, Anion Gap 10.7, BUN 29 H D, Creatinine 1.00 D, Estimated Creat Clear 100, Estimated GFR 75, Est GFR ( Amer) 90 D, Glucose 119 H, Calcium 8.3 L, Total Bilirubin 0.3, AST 48, ALT 42 D, Alkaline Phosphatase 65, C-Reactive Protein 144.1 H, Total Protein 6.4, Albumin 3.3 L, Globulin 3.1, Albumin/Globulin Ratio 1.1, Procalcitonin 1.61 I & O for Last 24 hours: Intake & Output 03/07/25 03/08/25 03/09/25 03/10/25 23:59 23:59 23:59 23:59 Intake Total 1949 1881.267 / 2131.267 2319.633 / 2439.633 710 / 710 Output Total 1400 / 1400 1350 / 1750 750 / 750 Balance 1949 481.267 / 731.267 969.633 / 689.633 -40 / -40 Weight 216 lb 8 oz 215 lb 9.617 oz 220 lb 12.8 oz 216 lb 11.2 oz Microbiology Reports for the Last 24 Hours: Microbiology 03/08/25 18:16 Blood Blood Culture - Preliminary 03/08/25 18:19 Blood Blood Culture - Preliminary 03/07/25 14:25 Blood Blood Culture - Preliminary Gram Positive Cocci 03/07/25 14:45 Blood Blood Culture - Preliminary Gram Positive Cocci Constitutional Constitutional: no acute distress *Routine Respiratory Exam Respiratory: Present rhonchi, wheezes and symmetric chest movement Comments: right lung base crackles *Routine Cardiovascular Exam Cardiovascular: Present RRR, Normal S1 and Normal S2 *Routine Abdominal Exam Abdominal: Present soft and normoactive bowel sounds; Absent tenderness *Routine Extremities Exam Extremities: Present full ROM and normal capillary refill; Absent edema *Routine Skin Exam Skin: Present intact, dry and warm Detailed Neck Exam: Thyroids Thyroid: Absent bruit Progress Note: A&P Assessment and plan (1) Bacteremia due to methicillin resistant Staphylococcus aureus: Status: Acute (2) Pulmonary embolism: Status: Acute (3) HFrEF (heart failure with reduced ejection fraction): Status: Acute (4) COPD (chronic obstructive pulmonary disease): Status: Chronic (5) CAD (coronary artery disease): Status: Chronic (6) Essential hypertension: Status: Chronic (7) PAF (paroxysmal atrial fibrillation): Status: Acute (8) Generalized weakness: Status: Acute Assessment and Plan Assessment and Plan for All Diagnoses:: History of coronary artery disease Acute myocardial injury in the setting of sepsis, bacteremia and right-sided PE Stable angina Troponin 1.7 on admission trending down to 0.62 in the setting of bacteremia and PE EKG negative for STEMI on admission. Repeated EKG today reviewed, no acute changes noted. Left heart catheterization 12/31/2024-3 JEANNE to RCA. Remaining 30 to 40% percent lesions noted, please see full cath report. LVEDP was elevated at 20 Continue Plavix. Patient is on Repatha. Statin intolerant Continue Imdur but increase to 90 mg daily Continue Ranexa 1000 mg p.o. twice daily Add Lasix 20 mg p.o. daily for increased LVEDP Start Norvasc 2.5 mg p.o. daily for chest pain No plan for intervention at this time. Serial troponins have trended down. No EKG changes noted. Chest pain is intermittent. Will increase antianginal medications, if no response will have Dr. Gómez review cath images from December and reassess. History of heart failure with reduced ejection fraction Status post [facility] Echo 12/2024 shows an EF of 40%. No obvious evidence of vegetation or mobile echodensities noted on TTE. Cardiology implant summary from [facility] reviewed and shows less than 1% A. tach A-fib burden with episodes of SVT and NSVT Continue metoprolol succinate 100 mg p.o. daily and irbesartan 150 mg p.o. daily. Jardiance currently on hold due to recent UTI. Start Lasix 20 mg p.o. daily Sepsis MRSA bacteremia Defer to primary service for antibiotic management and repeat blood cultures Repeat limited echo: The aortic valve is mildly thickened but no evidence of mobile echodensity. Mitral valve opens well. No evidence of mitral valve echodensity, tricuspid valve leaflets open well no evidence of TV echodensities. Pulmonic valve is not well-visualized in the study. No evidence of significant valvular regurgitation or stenosis. TTE is highly sensitive or specific for evaluation of endocarditis especially for echodensities less than 1 cm in size. If clinical suspicion persists further evaluation is suggested with SHANIKA SHANIKA previously not completed due to source of infection identified and no evidence of vegetation or mobile echodensities were noted on TTE, however, given reoccurrence of positive blood cultures will consider proceeding with SHANIKA for evaluation for possible endocarditis as source of bacteremia on outpatient basis JANAK-Resolved Creatinine 2.2-1 Pulmonary embolism CTA chest positive for right lower lobe PE. Transition from hep drip to xarelto 15 mg twice daily for 21 days followed by 20 mg once daily History of A-fib Currently normal sinus rhythm Continue Xarelto CV summary 03/10/2025: Serial troponins trending down, EKG without acute ischemic changes noted. Will increase antianginal medications for stable angina. If symptoms persist will have Dr. Gómez review December left heart catheterization for further recommendations. Cardiac meds: Xarelto 15 mg p.o. twice daily for 21 days then 20 mg daily Plavix 75 mg p.o. daily Imdur 90 mg p.o. daily Ranexa 1000 mg p.o. twice daily Metoprolol succinate 100 mg p.o. daily Irbesartan 150 mg p.o. daily Lasix 20 mg p.o. daily Norvasc 2.5 mg p.o. daily
[2025-03-10] MEDS: AMLODIPINE 2.5MG TABLET 2.5 MG PO (15:15)
[2025-03-10] MEDS: FUROSEMIDE 20MG TABLET 20 MG PO (15:16)
[2025-03-10] MEDS: METOPROLOL SUCCINATE XL 100MG TABLET 100 MG PO (20:05)
[2025-03-10] MEDS: VANCOMYCIN/WATER FOR INJ (PEG) 1.5 GM/300 ML PIGGYBACK IV (20:05)
[2025-03-10 23:17] LABS: Acinetobacter calcoaceticus-ba Not Detected; Bacteroides fragilis Not Detected; Candida auris Not Detected; Candida glabrata Not Detected; Enterobacterales Not Detected; Enterococcus faecalis Not Detected; Enterococcus faecium Not Detected; Klebsiella aerogenes Not Detected; Klebsiella pneumoniae grp Not Detected; Proteus spp. Not Detected; Salmonella spp. Not Detected; Serratia marcescens Not Detected; Staphylococcus epidermidis Not Detected; Staphylococcus lugdunensis Not Detected; Staphylococcus spp. Detected; Stenotrophomonas maltophilia Not Detected; Streptococcus agalactiae(GrpB) Not Detected; Streptococcus pyogenes Group A Not Detected; Streptococcus spp. Not Detected; mecA/C and MREJ (MRSA) Detected
--- NOTE | 2025-03-10 23:21 | PC.NURSE ---
hospitalist notified of lab notification + BC/PCR
[2025-03-10 23:22] LABS: Acinetobacter calcoaceticus-ba Not Detected; Bacteroides fragilis Not Detected; Candida auris Not Detected; Candida glabrata Not Detected; Enterobacterales Not Detected; Enterococcus faecalis Not Detected; Enterococcus faecium Not Detected; Klebsiella aerogenes Not Detected; Klebsiella pneumoniae grp Not Detected; Proteus spp. Not Detected; Salmonella spp. Not Detected; Serratia marcescens Not Detected; Staphylococcus epidermidis Not Detected; Staphylococcus lugdunensis Not Detected; Staphylococcus spp. Detected; Stenotrophomonas maltophilia Not Detected; Streptococcus agalactiae(GrpB) Not Detected; Streptococcus pyogenes Group A Not Detected; Streptococcus spp. Not Detected; mecA/C and MREJ (MRSA) Detected
[2025-03-11] VITALS (19 sets, daily range): BP systolic 108–147; BP diastolic 63–92; PULSE 60–90; RESP 15–22; TEMP 36.4–36.6; O2SAT 87–98; BMI 34.1
[2025-03-11] MEDS: IPRATROPIUM/ALBUTEROL 3 ML NEB IH ×5 (00:20→23:20)
--- NOTE | 2025-03-11 04:53 | ECG_ITS ---
APPROVED REPORT Exam: Resting ECG HR:109 bpm ECG Measurements Heart Rate 109 AXES MO 152 P 76 QRSd 138 QRS -61 QT 365 T 99 QTc 429 Conclusion SINUS TACHYCARDIA INTRAVENTRICULAR CONDUCTION DELAY [130+ ms QRS DURATION] ABNORMAL ECG UNCONFIRMED REPORT Electronically signed by : Rick Vernon MD 03/12/2025 18:13:36
[2025-03-11] MEDS: MORPHINE 2MG/ML SYRINGE 2 MG IV ×2 (05:03→05:27)
--- NOTE | 2025-03-11 05:10 | PC.NURSE ---
Addendum entered by Taylor Hernández RN 03/11/25 06:23: report called to courtney, patient transferring to ICU Addendum entered by Taylor Hernández RN 03/11/25 05:31: 0520 hospitalist at bedside, pt reporting 10/10 chest pain, GI cocktail and 2nd dose of morphine administered. Addendum entered by Taylor Hernández RN 03/11/25 05:20: pain down right arm Original Note: patient had c/o 10/10 chest pain in at the sternum radiating down left arm. patient took home nitro few minutes before ringing out for nurse. SBP 170s, HR 110's, diaphoretic. STAT EKG, STAT tropinon, hospitalist notified - patient took another nitro when this RN stepped out to grab medications. Administer 2mg morphine IVP, patient stated that relieved pain. episode lasted roughly 10 minutes. patient resting in bed at this time with daughter at bedside
[2025-03-11 05:13] LABS: Lactate Venous 2.4 mmol/L (0.4-2.0); VBG HCO3 17.4 mmol/L (23-30); VBG PCO2 27.3 mmol/L (35-51); VBG PH 7.42 mmol/L (7.31-7.41); VBG PO2 115.2 mmol/L (28-40)
[2025-03-11] MEDS: BELLADONNA ALKALOIDS 60 ML ML PO (05:25)
[2025-03-11 05:30] LABS: Hematocrit 35.6 % (42.0-52.0); Immature Granulocytes % 0.8 %; Mean Corpuscular HGB Conc 32.9 g/dL (31.8-35.4); Mean Corpuscular Hemoglobin 29.3 pg (27.0-31.2); Mean Corpuscular Volume 89.0 fl (80-94); Nucleated Red Blood Cells % 0 %; Platelet Count 242 K/mm3 (142-424); Red Blood Count 4.00 M/mm3 (4.60-6.20); Red Cell Distribution Width-SD 50.1 fL; White Blood Count 7.3 K/mm3 (4.8-10.8)
[2025-03-11 05:40] LABS: Albumin Level 3.8 g/dl (3.5-5.0); Chloride 110 mmol/L (98-107); Potassium 4.3 mmoL/L (3.5-5.1); Sodium 136 mmol/L (136-145)
[2025-03-11 05:42] LABS: Alanine Aminotransferase 52 U/L (12-78); Blood Urea Nitrogen 22 mg/dl (9-20); Creatinine Clearance Estimated 104 mL/min (50-200); Creatinine,Serum 0.80 mg/dl (0.66-1.25); Estimated Glomerular Filt Rate 96 ml/min (>60); GFR (African American) 117 ML/MIN (>60)
[2025-03-11 05:43] LABS: Albumin/Globulin Ratio 1.3 (1.1-1.8); Alkaline Phosphatase 83 U/L (38-126); Anion Gap 13.3 mEq/L (5-15); Aspartate Amino Transferase 42 U/L (17-59); Bilirubin,Total 0.4 mg/dl (0.2-1.3); Calcium 8.9 mg/dl (8.4-10.2); Carbon Dioxide 17 mmol/L (22.0-30.0); Globulin 2.9 g/dL (1.3-3.2); Glucose 127 mg/dl (74-100); Total Protein,Serum 6.7 g/dl (6.3-8.2)
[2025-03-11 05:45] LABS: Hemoglobin 11.4 g/dL (14.1-18.0)
[2025-03-11 05:55] LABS: Troponin I 1.00 ng/ml (0.00-0.034)
[2025-03-11] MEDS: HYDROMORPHONE 2MG/ML SYRINGE 2 MG IV (06:13)
[2025-03-11 06:14] LABS: C-Reactive Protein 96.5 mg/L (0-4)
[2025-03-11] MEDS: NITROGLYCERIN IN 5 % DEXTROSE 250 ML 1.5 MG IV (06:22)
[2025-03-11 06:27] LABS: Procalcitonin 0.884 ng/mL (0.0-2.0)
--- NOTE | 2025-03-11 06:38 | PC.NURSE ---
pt to icu unit at this time. pt reports no chest pain at this time after medication interventions were started. nitro gtt currently running at 5mcg/min
[2025-03-11] MEDS: FLUTICASONE/UMECLIDIN/VILANTER 100/62.5/25MCG INHALER 1 PUFF IH (07:00)
[2025-03-11] MEDS: ISOSORBIDE MONO 60MG TAB.ER.24H 90 MG PO (08:13)
[2025-03-11] MEDS: IRBESARTAN 150MG TAB 150 MG PO (08:13)
[2025-03-11] MEDS: RANOLAZINE 500MG ER TABLET 1000 MG PO ×2 (08:13→21:14)
[2025-03-11] MEDS: CLOPIDOGREL 75MG TAB 75 MG PO (08:13)
[2025-03-11] MEDS: NICOTINE 21MG/24HR PATCH 21 MG TD (08:14)
[2025-03-11] MEDS: PANTOPRAZOLE 40MG VIAL 40 MG IV (08:15)
[2025-03-11] MEDS: VANCOMYCIN/WATER FOR INJ (PEG) 1.5 GM/300 ML PIGGYBACK IV ×2 (08:22→21:41)
--- NOTE | 2025-03-11 08:48 | [facility].PHAAMS2 ---
- Antimicrobial Stewardship Review culture & sensitivity review Stewardship interventions: culture & sensitivity review (CURRENTLY RECEIVING VANCOMYCIN, WBC WNL, AFEBRILE, BLD CX PENDING.)
[2025-03-11] MEDS: FUROSEMIDE 20MG TABLET 20 MG PO (09:10)
[2025-03-11] MEDS: AMLODIPINE 2.5MG TABLET 2.5 MG PO (09:10)
[2025-03-11 09:14] LABS: Reflex Lactic Add Lactic Reflex
--- NOTE | 2025-03-11 09:15 | CT_ITS ---
FINAL REPORT TECHNIQUE: Thin section axial images were obtained through the abdomen after intravenous contrast. Reconstruction images were obtained from the axial data. Exam was performed using dose reduction techniques. CLINICAL HISTORY: epigastric pain FINDINGS: There is interlobular septal thickening. There are ground glass opacities in the lung bases, favor pulmonary edema. There is diffuse fatty infiltration of the liver. The gallbladder is present. The spleen, adrenal glands, and pancreas are unremarkable. There is no hydronephrosis or solid renal mass. Abdominal GI tract is without acute abnormality. There is no abdominal lymphadenopathy or ascites. The appendix is normal. There is diverticulosis without evidence of diverticulitis. The urinary bladder is distended. The prostate is unremarkable. There are bilateral fat-containing inguinal hernias. There is no pelvic lymphadenopathy or ascites. No acute osseous abnormalities identified. IMPRESSION: Distended urinary bladder. Ground glass opacities in the bases concerning for pulmonary edema. Fatty liver. Reviewed, Interpreted and Dictated by Dea Devi MD Transcribed by Glenny Beaver Authenticated and [facility]
--- NOTE | 2025-03-11 09:15 | P.PN_ITS ---
Subjective Subjective Date: 03/11/25 Time: 08:30 Principal diagnosis: Sepsis Interval history: Patient continued to have epigastric pain yesterday and into the evening. Patient was started on a nitro drip per Dr. Gómez admitted to the ICU. Patient reports this morning that the nitro drip did not help his pain but the Dilaudid did. Patient also complaining of intermittent episodes of shortness of breath. A CT abdomen pelvis is pending. Morning labs reviewed and stable. Exam Data for Last 24 hours Vital signs and Labs for Last 24 Hours: Temp Pulse Resp BP Pulse Ox O2 Del Method O2 Flow Rate 97.5 F L 87 22 108/71 L 96 Nasal Cannula 4 03/11/25 08:18 03/11/25 08:18 03/11/25 08:18 03/11/25 08:18 03/11/25 08:18 03/11/25 08:18 03/11/25 08:18 FiO2 28 03/09/25 06:04 Laboratory Results - last 24 hr 03/09/25 18:13: A. baumannii (PCR) Not detected, Bacteroides fragilis Not detected, Chela albicans (PCR) Not detected, Chela auris (PCR) Not detected, C. glabrata (PCR) Not detected, C. krusei (PCR) Not detected, C. parapsilosis (PCR) Not detected, C. tropicalis (PCR) Not detected, Cryptococcus neoformans PCR Not detected, Enterobacterales (PCR) Not detected, Enterococc faecalis PCR Not detected, Enterococc faecium PCR Not detected, E. coli (PCR) Not detected, H. influenzae DNA Not detected, Klebsiella aerogenes (PCR) Not detected, Klebsiella oxytoca PCR Not detected, K. pneumoniae group (PCR) Not detected, List. monocytogenes PCR Not detected, N. meningitidis (PCR) Not detected, Proteus species (PCR) Not detected, Salmonella spp. (PCR) Not detected, Serratia marcescens PCR Not detected, Staphylococcus sp PCR Detected A, Staph aureus (PCR) Detected A, mecA/C & MREJ Resist Gene Detected A, mecA/C-Methicil Resis Gene Not applicable, Staph epidermidis (PCR) Not detected, Staph lugdunensis (TEM-PCR) Not detected, S. maltophilia (PCR) Not detected, Streptococcus sp PCR Not detected, S.agalactiae Grp B LIZZY Not detected, Strep pneumoniae (PCR) Not detected, S. pyogenes GrpA LIZZY Not detected, P. aeruginosa (PCR) Not detected, Abimbola/B-Vanco Res Genes Not applicable, blaIMP Car res Gene PCR Not applicable, KPC-Carbap Res Gene PCR Not applicable, blaNDM Car Res Gene PCR Not applicable, OXA-48 Carbapenem Resis Gene (PCR) Not applicable, blaVIM Car Res Gene PCR Not applicable, CTX-M Gene Resistance (PCR) Not applicable, MCR-1 Resistance Gene Not applicable 03/09/25 18:18: A. baumannii (PCR) Not detected, Bacteroides fragilis Not detected, Chela albicans (PCR) Not detected, Chela auris (PCR) Not detected, C. glabrata (PCR) Not detected, C. krusei (PCR) Not detected, C. parapsilosis (PCR) Not detected, C. tropicalis (PCR) Not detected, Cryptococcus neoformans PCR Not detected, Enterobacterales (PCR) Not detected, Enterococc faecalis PCR Not detected, Enterococc faecium PCR Not detected, E. coli (PCR) Not detected, H. influenzae DNA Not detected, Klebsiella aerogenes (PCR) Not detected, Klebsiella oxytoca PCR Not detected, K. pneumoniae group (PCR) Not detected, List. monocytogenes PCR Not detected, N. meningitidis (PCR) Not detected, Proteus species (PCR) Not detected, Salmonella spp. (PCR) Not detected, Serratia marcescens PCR Not detected, Staphylococcus sp PCR Detected A, Staph aureus (PCR) Detected A, mecA/C & MREJ Resist Gene Detected A, mecA/C-Methicil Resis Gene Not applicable, Staph epidermidis (PCR) Not detected, Staph lugdunensis (TEM-PCR) Not detected, S. maltophilia (PCR) Not detected, Streptococcus sp PCR Not detected, S.agalactiae Grp B LIZZY Not detected, Strep pneumoniae (PCR) Not detected, S. pyogenes GrpA LIZZY Not detected, P. aeruginosa (PCR) Not detected, [place]imb[place]/B-Vanco Res Genes Not applicable, blaIMP Car res Gene PCR Not applicable, KPC-Carbap Res Gene PCR Not applicable, blaNDM Car Res Gene PCR Not applicable, OXA-48 Carbapenem Resis Gene (PCR) Not applicable, blaVIM Car Res Gene PCR Not applicable, CTX-M Gene Resistance (PCR) Not applicable, MCR-1 Resistance Gene Not applicable 03/10/25 05:20: Procalcitonin 1.61 03/11/25 05:05: WBC 7.3 D, RBC 4.00 L, Hgb 11.4 L D, Hct 35.6 L, MCV 89.0, MCH 29.3, MCHC 32.9, RDW 15.1, Plt Count 242 D, MPV 9.6, Neut % (Auto) 72.5, Lymph % (Auto) 15.5, [place] % (Auto) 11.1 H, Eos % (Auto) 0.0 L, Baso % (Auto) 0.1, Neut # (Auto) 5.3, Lymph # (Auto) 1.1, [place] # (Auto) 0.8, Eos # (Auto) 0.0, Baso # (Auto) 0.0, Sodium 136, Potassium 4.3, Chloride 110 H, Carbon Dioxide 17 L, Anion Gap 13.3, BUN 22 H, Creatinine 0.80, Estimated Creat Clear 104, Estimated GFR 96, Est GFR ( Amer) 117 D, Glucose 127 H, Calcium 8.9, Total Bilirubin 0.4, AST 42, ALT 52, Alkaline Phosphatase 83, Troponin I 1.00 H, C- Reactive Protein 96.5 H D, Total Protein 6.7, Albumin 3.8 D, Globulin 2.9, Albumin/Globulin Ratio 1.3, Procalcitonin 0.884 03/11/25 05:07: VBG pH 7.42 H, VBG pCO2 27.3 L, VBG pO2 115.2 H, VBG HCO3 17.4 L , VBG Total CO2 18.3 L, VBG O2 Saturation 98.7 H, VBG Base Excess -7.0 L, VBG Lactic Acid 2.4 H I & O for Last 24 hours: Intake & Output 03/08/25 03/09/25 03/10/25 03/11/25 23:59 23:59 23:59 23:59 Intake Total 1881.267 / 2131.267 2319.633 / 2439.633 1730 / 1970 240 / 240 Output Total 1400 / 1400 1350 / 1750 1400 / 1400 Balance 481.267 / 731.267 969.633 / 689.633 330 / 570 240 / 240 Weight 215 lb 9.617 oz 220 lb 12.8 oz 216 lb 11.2 oz 225 lb 6.4 oz Microbiology Reports for the Last 24 Hours: Microbiology 03/09/25 18:18 Blood Blood Culture - Preliminary 03/09/25 18:13 Blood Blood Culture - Preliminary Constitutional Constitutional: no acute distress *Routine Respiratory Exam Respiratory: Present rhonchi, wheezes and symmetric chest movement Comments: Rt lower lobe *Routine Cardiovascular Exam Cardiovascular: Present RRR, Normal S1 and Normal S2 *Routine Abdominal Exam Abdominal: Present soft and normoactive bowel sounds; Absent tenderness *Routine Extremities Exam Extremities: Present full ROM and normal capillary refill; Absent edema *Routine Skin Exam Skin: Present intact, dry and warm Detailed Neck Exam: Thyroids Thyroid: Absent bruit Progress Note: A&P Assessment and plan (1) Bacteremia due to methicillin resistant Staphylococcus aureus: Status: Acute (2) Pulmonary embolism: Status: Acute (3) HFrEF (heart failure with reduced ejection fraction): Status: Acute (4) COPD (chronic obstructive pulmonary disease): Status: Chronic (5) CAD (coronary artery disease): Status: Chronic (6) Essential hypertension: Status: Chronic (7) PAF (paroxysmal atrial fibrillation): Status: Acute (8) Generalized weakness: Status: Acute Assessment and Plan Assessment and Plan for All Diagnoses:: History of coronary artery disease Acute myocardial injury in the setting of sepsis, bacteremia and right-sided PE Stable angina Epigastric pain Troponin 1.7 on admission trending down to 0.62 in the setting of bacteremia and PE. Repeated last night and up to 1. EKG negative for STEMI on admission. Repeated EKG today reviewed, no acute changes noted. Left heart catheterization 12/31/2024-3 JEANNE to RCA. Remaining 30 to 40% percent lesions noted, please see full cath report. LVEDP was elevated at 20 Continue Plavix. Patient is on Repatha. Statin intolerant Continue Imdur but increase to 90 mg daily Continue Ranexa 1000 mg p.o. twice daily Continue Lasix for increased LVEDP Continue Norvasc 2.5 mg p.o. daily for chest pain CT abdomen pelvis for epigastric pain. Start Protonix 40 mg p.o. daily History of heart failure with reduced ejection fraction Status post AICD Echo 12/2024 shows an EF of 40%. No obvious evidence of vegetation or mobile echodensities noted on TTE. Cardiology implant summary from [facility] reviewed and shows less than 1% A. tach A-fib burden with episodes of SVT and NSVT Continue metoprolol succinate 100 mg p.o. daily and irbesartan 150 mg p.o. daily. Jardiance currently on hold due to recent UTI. CT abdomen pelvis shows distended urinary bladder and ground glass opacities in the bases concerning for pulmonary edema. Give a one-time dose of Lasix 40 mg IV now and then continue Lasix 40 mg p.o. daily Sepsis MRSA bacteremia Defer to primary service for antibiotic management and repeat blood cultures Repeat limited echo: The aortic valve is mildly thickened but no evidence of mobile echodensity. Mitral valve opens well. No evidence of mitral valve echodensity, tricuspid valve leaflets open well no evidence of TV echodensities. Pulmonic valve is not well-visualized in the study. No evidence of significant valvular regurgitation or stenosis. TTE is highly sensitive or specific for evaluation of endocarditis especially for echodensities less than 1 cm in size. If clinical suspicion persists further evaluation is suggested with SHANIKA SHANIKA previously not completed due to source of infection identified and no evidence of vegetation or mobile echodensities were noted on TTE, however, given reoccurrence of positive blood cultures will consider proceeding with SHANIKA for evaluation for possible endocarditis as source of bacteremia on outpatient basis JANAK-Resolved Creatinine 2.2-0.8 Pulmonary embolism CTA chest positive for right lower lobe PE. Continue xarelto 15 mg twice daily for 21 days followed by 20 mg once daily History of A-fib Currently normal sinus rhythm Continue Xarelto CV summary 03/11/2025: Abdomen/pelvis CT shows distended urinary bladder and ground glass opacities concerning for pulmonary edema. Increase Lasix to 40 mg p.o. daily and give a one-time dose of Lasix 40 mg IV push x 1 now. Dilaudid as needed for pain. Start Protonix 40 mg p.o. daily. Cardiac meds: Xarelto 15 mg p.o. twice daily for 21 days then 20 mg daily Plavix 75 mg p.o. daily Imdur 90 mg p.o. daily Ranexa 1000 mg p.o. twice daily Metoprolol succinate 100 mg p.o. daily Irbesartan 150 mg p.o. daily Lasix 40 mg p.o. daily Norvasc 2.5 mg p.o. daily Protonix 40mg po daily.
[2025-03-11 09:33] LABS: Lipase 30 U/L (23-300)
[2025-03-11 09:59] LABS: Lactic Acid Follow Up (RFLX 1) 1.1 mmol/L (0.7-2.1)
[2025-03-11] MEDS: SODIUM CHLORIDE 0.9% 10ML SYR (RAD ONLY) 10 ML IV (10:20)
[2025-03-11] MEDS: IOPAMIDOL-370 (76%);100ML BOTTLE 75 ML IV (10:21)
[2025-03-11] MEDS: FUROSEMIDE 40MG/4ML VIAL 40 MG IV (12:43)
--- NOTE | 2025-03-11 14:43 | EXP.PN ---
Subjective *Date: 03/11/25 *Time: 18:58 Interval history: Patient had significant chest pains overnight, received nitro and was put on nitro drip without significant improvement in chest pain. Ultimately Dilaudid improved chest pain overnight. On my evaluation this morning, patient stated most of his chest pain is epigastric with bilateral radiation to his back. CT abdomen/pelvis revealed pulmonary edema, distended urinary bladder but otherwise no other acute findings. Lipase normal. Started IV Protonix, transition to p.o. Protonix tonight. Patient feeling much better this afternoon. Exam Data for Last 24 hours Vital signs and Labs for Last 24 Hours: Temp Pulse Resp BP Pulse Ox O2 Del Method O2 Flow Rate 97.5 F L 75 16 119/65 96 Room Air 1 03/11/25 12:02 03/11/25 12:02 03/11/25 12:02 03/11/25 12:02 03/11/25 12:02 03/11/25 13:00 03/11/25 12:02 FiO2 28 03/09/25 06:04 Laboratory Results - last 24 hr 03/09/25 18:13: A. baumannii (PCR) Not detected, Bacteroides fragilis Not detected, Chela albicans (PCR) Not detected, Chela auris (PCR) Not detected, C. glabrata (PCR) Not detected, C. krusei (PCR) Not detected, C. parapsilosis (PCR) Not detected, C. tropicalis (PCR) Not detected, Cryptococcus neoformans PCR Not detected, Enterobacterales (PCR) Not detected, Enterococc faecalis PCR Not detected, Enterococc faecium PCR Not detected, E. coli (PCR) Not detected, H. influenzae DNA Not detected, Klebsiella aerogenes (PCR) Not detected, Klebsiella oxytoca PCR Not detected, K. pneumoniae group (PCR) Not detected, List. monocytogenes PCR Not detected, N. meningitidis (PCR) Not detected, Proteus species (PCR) Not detected, Salmonella spp. (PCR) Not detected, Serratia marcescens PCR Not detected, Staphylococcus sp PCR Detected A, Staph aureus (PCR) Detected A, mecA/C & MREJ Resist Gene Detected A, mecA/C-Methicil Resis Gene Not applicable, Staph epidermidis (PCR) Not detected, Staph lugdunensis (TEM-PCR) Not detected, S. maltophilia (PCR) Not detected, Streptococcus sp PCR Not detected, S.agalactiae Grp B LIZZY Not detected, Strep pneumoniae (PCR) Not detected, S. pyogenes GrpA LIZZY Not detected, P. aeruginosa (PCR) Not detected, [place]/B-Vanco Res Genes Not applicable, blaIMP Car res Gene PCR Not applicable, KPC-Carbap Res Gene PCR Not applicable, blaNDM Car Res Gene PCR Not applicable, OXA-48 Carbapenem Resis Gene (PCR) Not applicable, blaVIM Car Res Gene PCR Not applicable, CTX-M Gene Resistance (PCR) Not applicable, MCR-1 Resistance Gene Not applicable 03/09/25 18:18: A. baumannii (PCR) Not detected, Bacteroides fragilis Not detected, Chela albicans (PCR) Not detected, Chela auris (PCR) Not detected, C. glabrata (PCR) Not detected, C. krusei (PCR) Not detected, C. parapsilosis (PCR) Not detected, C. tropicalis (PCR) Not detected, Cryptococcus neoformans PCR Not detected, Enterobacterales (PCR) Not detected, Enterococc faecalis PCR Not detected, Enterococc faecium PCR Not detected, E. coli (PCR) Not detected, H. influenzae DNA Not detected, Klebsiella aerogenes (PCR) Not detected, Klebsiella oxytoca PCR Not detected, K. pneumoniae group (PCR) Not detected, List. monocytogenes PCR Not detected, N. meningitidis (PCR) Not detected, Proteus species (PCR) Not detected, Salmonella spp. (PCR) Not detected, Serratia marcescens PCR Not detected, Staphylococcus sp PCR Detected A, Staph aureus (PCR) Detected A, mecA/C & MREJ Resist Gene Detected A, mecA/C-Methicil Resis Gene Not applicable, Staph epidermidis (PCR) Not detected, Staph lugdunensis (TEM-PCR) Not detected, S. maltophilia (PCR) Not detected, Streptococcus sp PCR Not detected, S.agalactiae Grp B LIZZY Not detected, Strep pneumoniae (PCR) Not detected, S. pyogenes GrpA LIZZY Not detected, P. aeruginosa (PCR) Not detected, [place]/B-Vanco Res Genes Not applicable, blaIMP Car res Gene PCR Not applicable, KPC-Carbap Res Gene PCR Not applicable, blaNDM Car Res Gene PCR Not applicable, OXA-48 Carbapenem Resis Gene (PCR) Not applicable, blaVIM Car Res Gene PCR Not applicable, CTX-M Gene Resistance (PCR) Not applicable, MCR-1 Resistance Gene Not applicable 03/11/25 05:05: WBC 7.3 D, RBC 4.00 L, Hgb 11.4 L D, Hct 35.6 L, MCV 89.0, MCH 29.3, MCHC 32.9, RDW 15.1, Plt Count 242 D, MPV 9.6, Neut % (Auto) 72.5, Lymph % (Auto) 15.5, [place] % (Auto) 11.1 H, Eos % (Auto) 0.0 L, Baso % (Auto) 0.1, Neut # (Auto) 5.3, Lymph # (Auto) 1.1, [place] # (Auto) 0.8, Eos # (Auto) 0.0, Baso # (Auto) 0.0, Sodium 136, Potassium 4.3, Chloride 110 H, Carbon Dioxide 17 L, Anion Gap 13.3, BUN 22 H, Creatinine 0.80, Estimated Creat Clear 104, Estimated GFR 96, Est GFR ( Amer) 117 D, Glucose 127 H, Calcium 8.9, Total Bilirubin 0.4, AST 42, ALT 52, Alkaline Phosphatase 83, Troponin I 1.00 H, C-Reactive Protein 96.5 H D, Total Protein 6.7, Albumin 3.8 D, Globulin 2.9, Albumin/Globulin Ratio 1.3, Lipase 30, Procalcitonin 0.884 03/11/25 05:07: VBG pH 7.42 H, VBG pCO2 27.3 L, VBG pO2 115.2 H, VBG HCO3 17.4 L, VBG Total CO2 18.3 L, VBG O2 Saturation 98.7 H, VBG Base Excess -7.0 L, VBG Lactic Acid 2.4 H 03/11/25 09:35: Lactate 1.1 I & O for Last 24 hours: Intake & Output 03/08/25 03/09/25 03/10/25 03/11/25 23:59 23:59 23:59 23:59 Intake Total 1881.267 / 2131.267 2319.633 / 2439.633 1730 / 1970 1085.175 / 1085.175 Output Total 1400 / 1400 1350 / 1750 1400 / 1400 450 / 450 Balance 481.267 / 731.267 969.633 / 689.633 330 / 570 635.175 / 635.175 Weight 97.795 kg 100.153 kg 98.293 kg 102.24 kg Microbiology Reports for the Last 24 Hours: Microbiology 03/09/25 18:18 Blood Blood Culture - Final 03/09/25 18:18 Blood - Right Aerobic Organism ID Result 1 - Final Not Reportable 03/09/25 18:18 Blood - Right Aerobic Organism ID Result 2 - Final Not Reportable 03/09/25 18:18 Blood - Right Aerobic Organism ID Result 3 - Final Not Reportable 03/09/25 18:18 Blood - Right Aerobic Organism ID Result 4 - Final Not Reportable 03/09/25 18:18 Blood - Right Antimicrobic Susceptibility - Final Not Reportable 03/09/25 18:13 Blood - Other Aerobic Organism ID Result 1 - Final Not Reportable 03/09/25 18:13 Blood - Other Aerobic Organism ID Result 2 - Final Not Reportable 03/09/25 18:13 Blood - Other Aerobic Organism ID Result 3 - Final Not Reportable 03/09/25 18:13 Blood - Other Aerobic Organism ID Result 4 - Final Not Reportable 03/09/25 18:13 Blood - Other Antimicrobic Susceptibility - Final Not Reportable 03/09/25 18:13 Blood Blood Culture - Final 03/08/25 18:19 Blood Blood Culture - Final 03/08/25 18:19 Blood - Right Aerobic Organism ID Result 1 - Final Not Reportable 03/08/25 18:19 Blood - Right Aerobic Organism ID Result 2 - Final Not Reportable 03/08/25 18:19 Blood - Right Aerobic Organism ID Result 3 - Final Not Reportable 03/08/25 18:19 Blood - Right Aerobic Organism ID Result 4 - Final Not Reportable 03/08/25 18:19 Blood - Right Antimicrobic Susceptibility - Final Not Reportable 03/08/25 18:16 Blood - Other Aerobic Organism ID Result 1 - Final Not Reportable 03/08/25 18:16 Blood - Other Aerobic Organism ID Result 2 - Final Not Reportable 03/08/25 18:16 Blood - Other Aerobic Organism ID Result 3 - Final Not Reportable 03/08/25 18:16 Blood - Other Aerobic Organism ID Result 4 - Final Not Reportable 03/08/25 18:16 Blood - Other Antimicrobic Susceptibility - Final Not Reportable 03/08/25 18:16 Blood Blood Culture - Final 03/07/25 14:45 Blood Blood Culture - Final Gram Positive Cocci 03/07/25 14:25 Blood Blood Culture - Final Gram Positive Cocci 03/07/25 14:45 Blood - Right Aerobic Organism ID Result 1 - Final Not Reportable 03/07/25 14:45 Blood - Right Aerobic Organism ID Result 2 - Final Not Reportable 03/07/25 14:45 Blood - Right Aerobic Organism ID Result 3 - Final Not Reportable 03/07/25 14:45 Blood - Right Aerobic Organism ID Result 4 - Final Not Reportable 03/07/25 14:45 Blood - Right Antimicrobic Susceptibility - Final Not Reportable 03/07/25 14:25 Blood - Other Aerobic Organism ID Result 1 - Final Not Reportable 03/07/25 14:25 Blood - Other Aerobic Organism ID Result 2 - Final Not Reportable 03/07/25 14:25 Blood - Other Aerobic Organism ID Result 3 - Final Not Reportable 03/07/25 14:25 Blood - Other Aerobic Organism ID Result 4 - Final Not Reportable 03/07/25 14:25 Blood - Other Antimicrobic Susceptibility - Final Not Reportable Constitutional Constitutional: no acute distress *Routine Respiratory Exam Respiratory: Present CTA bilaterally and symmetric chest movement *Routine Cardiovascular Exam Cardiovascular: Present Normal S1, Normal S2 and irregularly irregular *Routine Abdominal Exam Abdominal: Present soft and normoactive bowel sounds; Absent tenderness *Routine Extremities Exam Extremities: Present full ROM and normal capillary refill; Absent edema *Routine Skin Exam Skin: Present intact, dry and warm Detailed Neck Exam: Thyroids Thyroid: Absent bruit Assessment and Plan *Assessment and plan (1) Bacteremia due to methicillin resistant Staphylococcus aureus: Status: Acute Category: Medical Code(s): R78.81 - Bacteremia; B95.62 - Methicillin resistant Staphylococcus aureus infection as the cause of diseases classified elsewhere (2) Pulmonary embolism: Status: Acute Category: Medical Code(s): I26.99 - Other pulmonary embolism without acute cor pulmonale (3) HFrEF (heart failure with reduced ejection fraction): Status: Acute Category: Medical Code(s): I50.20 - Unspecified systolic (congestive) heart failure (4) COPD (chronic obstructive pulmonary disease): Status: Chronic Qualifiers: COPD type: emphysema Emphysema type: other Qualified Code(s): J43.8 - Other emphysema Category: Medical Code(s): J44.9 - Chronic obstructive pulmonary disease, unspecified (5) CAD (coronary artery disease): Status: Chronic Qualifiers: Associated angina: with stable angina Coronary Disease-Associated Artery/Lesion type: circle artery [place] vs. transplanted heart: circle heart Qualified Code(s): I25.118 - Atherosclerotic heart disease of circle coronary artery with other forms of angina pectoris Category: Medical Code(s): I25.10 - Atherosclerotic heart disease of circle coronary artery without angina pectoris (6) Essential hypertension: Status: Chronic Category: Medical Code(s): I10 - Essential (primary) hypertension (7) PAF (paroxysmal atrial fibrillation): Status: Acute Category: Medical Code(s): I48.0 - Paroxysmal atrial fibrillation (8) Generalized weakness: Status: Acute Category: Medical Code(s): R53.1 - Weakness Plan Mr. Thurman is a 69-year-old male with A-fib, SVT, HFrEF, LHC with JEANNE, GERD, COPD, obesity, tobacco dependence, PAD, CAD, and pacemaker. Presented to the ER with shortness of breath. Workup found SIRS, JANAK, PE, NSTEMI. Discussed case with ER physician, request admission for further treatment of SIRS while awaiting cultures and management of NSTEMI and JANAK. Severe sepsis, resolved MRSA bacteremia - Meeting SIRS criteria with tachycardia, endorgan damage, tachypnea, fever. Blood culture positive for MRSA. Had similar infection 2 months ago that was thought to have resolved. ? Today WBC continues to be normal, procalcitonin downtrending from 1.68-0.884 (peaked at 3.38), CRP 228 to 144 to 96. ? Three sets of blood cultures positive for MRSA, follow-up repeat cultures from 03/11/2025. ? Continue IV vancomycin, pharmacy to dose. Discontinued cefepime. - Will need at least 6 weeks of antibiotics. ? Discussed with cardiology, recommended continued IV antibiotics and will follow-up with an outpatient SHANIKA. Inpatient TTE unremarkable for endocarditis. #Right pulmonary embolism #NSTEMI, type II #Chest pain #GERD ? CTA on admission Revealing right lower lobe pulmonary embolism with no evidence of RV strain. ECHO also showed no RV strain. ? Initial troponin 1.78, down trended to 0.62. In the setting of recent PCI on 12/31/2024 with stents, and PE. ? Discussed with cardiology, will switch from Eliquis to rivaroxaban 15 mg twice daily for 21 days then 20 mg daily. ? Discussed with cardiology regarding patient's intermittent chest pains, increased Imdur to 30 mg 3 times daily, started amlodipine 5 mg, Lasix 20 mg daily. ? Patient had significant chest pains overnight, received nitro and was put on nitro drip without significant improvement in chest pain. Ultimately Dilaudid improved chest pain overnight. On my evaluation this morning, patient stated most of his chest pain is epigastric with bilateral radiation to his back. CT abdomen/pelvis revealed pulmonary edema, distended urinary bladder but otherwise no other acute findings. Lipase normal. ? Started IV Protonix, transition to p.o. Protonix tonight. Patient feeling much better this afternoon. ? IV Dilaudid as needed for pain control. Nitro drip discontinued. ? Continue home Plavix 75 mg, statin. #JANAK ? Initial creatinine 2.2, bumped to 2.6, improved to 1.0 with gentle IV fluids. #A-fib ? Continue home metoprolol succinate 100 mg, started rivaroxaban as above. #CAD Heart failure with reduced ejection fraction, EF 40% Hypertension Hyperlipidemia ? Left heart cath performed 12/31/2024. Patient received 3 contiguous stents to the RCA. - Echo obtained in December shows mild to moderate reduced LV, 40%. Severe hypokinesis of the distal and apical LV burgess. No valvular stenosis or regurgitation noted. ?Patient has dual-chamber ICD in place ? Continue home Plavix 75 mg, statin. #Tobacco use disorder #COPD with exacerbation ? Patient states he is a daily smoker approximately 1 PPD. - Continue home Trelegy. Continue DuoNebs every 6 hours. ? Started prednisone 40 mg daily for ongoing shortness of breath, wheezing. #Mood disorder: Continue Wellbutrin 150 mg daily. Full code Heparin drip Cardiac diet
[2025-03-11 21:08] LABS: Vancomycin,Trough 14.3 ug/mL (5.0-10.0)
[2025-03-11] MEDS: PANTOPRAZOLE 40MG TABLET 40 MG PO (21:14)
[2025-03-11] MEDS: METOPROLOL SUCCINATE XL 100MG TABLET 100 MG PO (21:14)
[2025-03-12] VITALS (10 sets, daily range): BP systolic 123–144; BP diastolic 55–78; PULSE 57–75; RESP 11–20; TEMP 36.4–36.5; O2SAT 92–97; BMI 34.2
[2025-03-12 05:20] LABS: Hematocrit 35.3 % (42.0-52.0); Hemoglobin 11.3 g/dL (14.1-18.0); Immature Granulocytes % 0.8 %; Mean Corpuscular HGB Conc 32.0 g/dL (31.8-35.4); Mean Corpuscular Hemoglobin 29.0 pg (27.0-31.2); Mean Corpuscular Volume 90.7 fl (80-94); Nucleated Red Blood Cells % 0 %; Platelet Count 273 K/mm3 (142-424); Red Blood Count 3.89 M/mm3 (4.60-6.20); Red Cell Distribution Width-SD 51.6 fL; White Blood Count 8.4 K/mm3 (4.8-10.8)
[2025-03-12 05:25] LABS: Albumin Level 4.0 g/dl (3.5-5.0); Chloride 108 mmol/L (98-107); Sodium 139 mmol/L (136-145)
[2025-03-12 05:26] LABS: Potassium 4.3 mmoL/L (3.5-5.1)
[2025-03-12 05:28] LABS: Alanine Aminotransferase 81 U/L (12-78); Albumin/Globulin Ratio 1.2 (1.1-1.8); Alkaline Phosphatase 74 U/L (38-126); Anion Gap 14.3 mEq/L (5-15); Aspartate Amino Transferase 98 U/L (17-59); Bilirubin,Total 0.3 mg/dl (0.2-1.3); Blood Urea Nitrogen 25 mg/dl (9-20); Carbon Dioxide 21 mmol/L (22.0-30.0); Creatinine Clearance Estimated 94 mL/min (50-200); Creatinine,Serum 1.10 mg/dl (0.66-1.25); Estimated Glomerular Filt Rate 67 ml/min (>60); GFR (African American) 81 ML/MIN (>60); Globulin 3.3 g/dL (1.3-3.2); Total Protein,Serum 7.3 g/dl (6.3-8.2)
[2025-03-12 05:29] LABS: Calcium 9.1 mg/dl (8.4-10.2); Glucose 117 mg/dl (74-100)
[2025-03-12] MEDS: FLUTICASONE/UMECLIDIN/VILANTER 100/62.5/25MCG INHALER 1 PUFF IH (05:49)
[2025-03-12] MEDS: IPRATROPIUM/ALBUTEROL 3 ML NEB IH ×2 (05:49→11:05)
--- NOTE | 2025-03-12 08:49 | EXP.PHA.CONS ---
Pharmacy Consult Date: 03/12/25 Time: 08:49 Referring provider: DR. RG Reason for Consult:: VANCOMYCIN TROUGH LEVEL Allergies Allergy/AdvReac Type Severity Reaction Status Date / Time rosuvastatin (From Crestor) Allergy Mild Back Pain Verified 02/02/25 15:03 Home Medications ?Medication ?Instructions ?Recorded ?Confirmed ?Type aspirin 81 mg tablet,delayed 81 mg PO DAILY 04/10/17 03/07/25 History release (Adult Low Dose Aspirin) bupropion HCl 150 mg tablet,12 hr 150 mg PO DAILY 04/10/17 03/07/25 History sustained-release fluticasone fur. 100 mcg-umeclid 1 inh inhalation DAILY 10/19/21 03/07/25 History 62.5 mcg-vilant 25 mcg inhalat.powder (Trelegy Ellipta) nitroglycerin 0.4 mg sublingual 0.4 mg sublingual Q5MINP PRN chest 09/17/23 03/07/25 History tablet (Nitrostat) pain ranolazine 1,000 mg 1,000 mg PO BID 12/29/24 03/07/25 History tablet,extended release,12 hr apixaban 5 mg tablet (Eliquis) 5 mg PO BID #60 tabs 12/30/24 03/07/25 Rx clopidogrel 75 mg tablet 75 mg PO DAILY 30 days #30 tabs 12/30/24 03/07/25 Rx metoprolol succinate 100 mg 100 mg PO HS 30 days #30 tabs 12/30/24 03/07/25 Rx tablet,extended release 24 hr empagliflozin 10 mg tablet 10 mg PO DAILY 30 days #30 tabs 01/12/25 03/07/25 Rx (Jardiance) olmesartan 20 mg tablet 20 mg PO DAILY #30 tabs 01/28/25 03/07/25 Rx isosorbide mononitrate 30 mg 30 mg PO BID #30 tabs 02/02/25 03/07/25 Rx tablet,extended release 24 hr New Prescriptions to Start Prescriptions: Height: 1.73 m Weight: 102.285 kg Laboratory Results:: Laboratory Results - last 24 hr 03/11/25 05:05: Lipase 30 03/11/25 09:35: Lactate 1.1 03/11/25 20:08: Vancomycin Trough 14.3 H 03/12/25 04:53: WBC 8.4, RBC 3.89 L, Hgb 11.3 L, Hct 35.3 L, MCV 90.7, MCH 29.0, MCHC 32.0, RDW 15.5, Plt Count 273, MPV 10.0, Neut % (Auto) 76.5, Lymph % (Auto) 16.7, [place] % (Auto) 5.7, Eos % (Auto) 0.2, Baso % (Auto) 0.1, Neut # (Auto) 6.4, Lymph # (Auto) 1.4, [place] # (Auto) 0.5, Eos # (Auto) 0.0, Baso # (Auto) 0.0, Sodium 139, Potassium 4.3, Chloride 108 H, Carbon Dioxide 21 L, Anion Gap 14.3, BUN 25 H, Creatinine 1.10 D, Estimated Creat Clear 94, Estimated GFR 67, Est GFR ( Amer) 81 D, Glucose 117 H, Calcium 9.1, Total Bilirubin 0.3, AST 98 H D, ALT 81 H D, Alkaline Phosphatase 74, Total Protein 7.3, Albumin 4.0, Globulin 3.3 H, Albumin/Globulin Ratio 1.2 Medical History: Medical History (Updated 03/08/25 @ 13:15 by Rudi Westfall MD) Dizziness Crescendo angina Atypical angina SVT (supraventricular tachycardia) HFrEF (heart failure with reduced ejection fraction) Ventricular tachycardia Impotence Typical angina NYHA Class III cardiovascular function Post-operative complication Gynecomastia HHD (hypertensive heart disease) HLD (hyperlipidemia) CAD (coronary artery disease) Multiple nodules of lung Diastolic heart failure Obesity PAD (peripheral artery disease) Essential hypertension COPD (chronic obstructive pulmonary disease) GERD (gastroesophageal reflux disease) PVC (premature ventricular contraction) Systolic heart failure Tobacco dependence syndrome Assessment and Plan Assessment and plan all Dx Assessment and Plan for all problems:: BASED ON PATIENT FACTORS AND VANCOMYCIN TROUGH LEVEL OF 14.3, RECOMMEND CONTINUING CURRENT DOSE OF VANCOMYCIN AT 1,500MG EVERY 12 HOURS. PHARMACY WILL CONTINUE TO MONITOR AND ADJUST DOSE APPROPRIATE. -DAVE MOORE PHARMD
--- NOTE | 2025-03-12 09:00 | P.PN_ITS ---
Subjective Subjective Date: 03/12/25 Time: 08:00 Principal diagnosis: Sepsis Interval history: Patient reports he is feeling much better today. Reports shortness of breath has improved. Denies chest pain. Labs reviewed and stable. Exam Data for Last 24 hours Vital signs and Labs for Last 24 Hours: Temp Pulse Resp BP Pulse Ox O2 Del Method O2 Flow Rate 97.6 F 63 20 144/65 H 95 Room Air 1 03/12/25 08:01 03/12/25 08:01 03/12/25 08:01 03/12/25 08:01 03/12/25 08:01 03/12/25 08:01 03/11/25 12:02 FiO2 28 03/09/25 06:04 Laboratory Results - last 24 hr 03/11/25 05:05: Lipase 30 03/11/25 09:35: Lactate 1.1 03/11/25 20:08: Vancomycin Trough 14.3 H 03/12/25 04:53: WBC 8.4, RBC 3.89 L, Hgb 11.3 L, Hct 35.3 L, MCV 90.7, MCH 29.0, MCHC 32.0, RDW 15.5, Plt Count 273, MPV 10.0, Neut % (Auto) 76.5, Lymph % (Auto) 16.7, [place] % (Auto) 5.7, Eos % (Auto) 0.2, Baso % (Auto) 0.1, Neut # (Auto) 6.4, Lymph # (Auto) 1.4, [place] # (Auto) 0.5, Eos # (Auto) 0.0, Baso # (Auto) 0.0, Sodium 139, Potassium 4.3, Chloride 108 H, Carbon Dioxide 21 L, Anion Gap 14.3, BUN 25 H, Creatinine 1.10 D, Estimated Creat Clear 94, Estimated GFR 67, Est GFR ( Amer) 81 D, Glucose 117 H, Calcium 9.1, Total Bilirubin 0.3, AST 98 H D, ALT 81 H D, Alkaline Phosphatase 74, Total Protein 7.3, Albumin 4.0, Globulin 3.3 H, Albumin/Globulin Ratio 1.2 I & O for Last 24 hours: Intake & Output 03/09/25 03/10/25 03/11/25 03/12/25 23:59 23:59 23:59 23:59 Intake Total 2319.633 / 2439.633 1730 / 1970 2054.675 / 2054.675 450 / 450 Output Total 1350 / 1750 1400 / 1400 1700 / 1700 400 / 400 Balance 969.633 / 689.633 330 / 570 354.675 / 354.675 50 / 50 Weight 220 lb 12.8 oz 216 lb 11.2 oz 225 lb 6.4 oz 225 lb 8 oz Microbiology Reports for the Last 24 Hours: Microbiology 03/11/25 08:15 Blood Blood Culture - Preliminary NO GROWTH AFTER 24 HOURS 03/11/25 08:00 Blood Blood Culture - Preliminary NO GROWTH AFTER 24 HOURS 03/09/25 18:18 Blood Blood Culture - Final 03/09/25 18:18 Blood - Right Aerobic Organism ID Result 1 - Final Not Reportable 03/09/25 18:18 Blood - Right Aerobic Organism ID Result 2 - Final Not Reportable 03/09/25 18:18 Blood - Right Aerobic Organism ID Result 3 - Final Not Reportable 03/09/25 18:18 Blood - Right Aerobic Organism ID Result 4 - Final Not Reportable 03/09/25 18:18 Blood - Right Antimicrobic Susceptibility - Final Not Reportable 03/09/25 18:13 Blood - Other Aerobic Organism ID Result 1 - Final Not Reportable 03/09/25 18:13 Blood - Other Aerobic Organism ID Result 2 - Final Not Reportable 03/09/25 18:13 Blood - Other Aerobic Organism ID Result 3 - Final Not Reportable 03/09/25 18:13 Blood - Other Aerobic Organism ID Result 4 - Final Not Reportable 03/09/25 18:13 Blood - Other Antimicrobic Susceptibility - Final Not Reportable 03/09/25 18:13 Blood Blood Culture - Final 03/08/25 18:19 Blood Blood Culture - Final 03/08/25 18:19 Blood - Right Aerobic Organism ID Result 1 - Final Not Reportable 03/08/25 18:19 Blood - Right Aerobic Organism ID Result 2 - Final Not Reportable 03/08/25 18:19 Blood - Right Aerobic Organism ID Result 3 - Final Not Reportable 03/08/25 18:19 Blood - Right Aerobic Organism ID Result 4 - Final Not Reportable 03/08/25 18:19 Blood - Right Antimicrobic Susceptibility - Final Not Reportable 03/08/25 18:16 Blood - Other Aerobic Organism ID Result 1 - Final Not Reportable 03/08/25 18:16 Blood - Other Aerobic Organism ID Result 2 - Final Not Reportable 03/08/25 18:16 Blood - Other Aerobic Organism ID Result 3 - Final Not Reportable 03/08/25 18:16 Blood - Other Aerobic Organism ID Result 4 - Final Not Reportable 03/08/25 18:16 Blood - Other Antimicrobic Susceptibility - Final Not Reportable 03/08/25 18:16 Blood Blood Culture - Final 03/07/25 14:45 Blood Blood Culture - Final Gram Positive Cocci 03/07/25 14:25 Blood Blood Culture - Final Gram Positive Cocci 03/07/25 14:45 Blood - Right Aerobic Organism ID Result 1 - Final Not Reportable 03/07/25 14:45 Blood - Right Aerobic Organism ID Result 2 - Final Not Reportable 03/07/25 14:45 Blood - Right Aerobic Organism ID Result 3 - Final Not Reportable 03/07/25 14:45 Blood - Right Aerobic Organism ID Result 4 - Final Not Reportable 03/07/25 14:45 Blood - Right Antimicrobic Susceptibility - Final Not Reportable 03/07/25 14:25 Blood - Other Aerobic Organism ID Result 1 - Final Not Reportable 03/07/25 14:25 Blood - Other Aerobic Organism ID Result 2 - Final Not Reportable 03/07/25 14:25 Blood - Other Aerobic Organism ID Result 3 - Final Not Reportable 03/07/25 14:25 Blood - Other Aerobic Organism ID Result 4 - Final Not Reportable 03/07/25 14:25 Blood - Other Antimicrobic Susceptibility - Final Not Reportable Constitutional Constitutional: no acute distress *Routine Respiratory Exam Respiratory: Present CTA bilaterally and symmetric chest movement *Routine Cardiovascular Exam Cardiovascular: Present RRR, Normal S1 and Normal S2 *Routine Abdominal Exam Abdominal: Present soft and normoactive bowel sounds; Absent tenderness *Routine Extremities Exam Extremities: Present full ROM and normal capillary refill; Absent edema *Routine Skin Exam Skin: Present intact, dry and warm Detailed Neck Exam: Thyroids Thyroid: Absent bruit Progress Note: A&P Assessment and plan (1) Bacteremia due to methicillin resistant Staphylococcus aureus: Status: Acute (2) Pulmonary embolism: Status: Acute (3) HFrEF (heart failure with reduced ejection fraction): Status: Acute (4) COPD (chronic obstructive pulmonary disease): Status: Chronic (5) CAD (coronary artery disease): Status: Chronic (6) Essential hypertension: Status: Chronic (7) PAF (paroxysmal atrial fibrillation): Status: Acute (8) Generalized weakness: Status: Acute Assessment and Plan Assessment and Plan for All Diagnoses:: History of coronary artery disease Acute myocardial injury in the setting of sepsis, bacteremia and right-sided PE Stable angina Epigastric pain Troponin 1.7 on admission trending down to 0.62 in the setting of bacteremia and PE. Repeated last night and up to 1. EKG negative for STEMI on admission. Repeated EKG today reviewed, no acute changes noted. Left heart catheterization 12/31/2024-3 JEANNE to RCA. Remaining 30 to 40% percent lesions noted, please see full cath report. LVEDP was elevated at 20 Continue Plavix. Patient is on Repatha. Statin intolerant Continue Imdur but increase to 90 mg daily Continue Ranexa 1000 mg p.o. twice daily Continue Lasix for increased LVEDP Continue Norvasc 2.5 mg p.o. daily for chest pain Continue Protonix 40 mg p.o. daily History of heart failure with reduced ejection fraction Status post AICD Echo 12/2024 shows an EF of 40%. No obvious evidence of vegetation or mobile echodensities noted on TTE. Cardiology implant summary from [facility] reviewed and shows less than 1% A. tach A-fib burden with episodes of SVT and NSVT Continue metoprolol succinate 100 mg p.o. daily and irbesartan 150 mg p.o. daily. Jardiance currently on hold due to recent UTI. CT abdomen pelvis shows distended urinary bladder and ground glass opacities in the bases concerning for pulmonary edema-continue Lasix 40 mg p.o. daily Sepsis MRSA bacteremia Defer to primary service for antibiotic management and repeat blood cultures Repeat limited echo: The aortic valve is mildly thickened but no evidence of mobile echodensity. Mitral valve opens well. No evidence of mitral valve echodensity, tricuspid valve leaflets open well no evidence of TV echodensities. Pulmonic valve is not well-visualized in the study. No evidence of significant valvular regurgitation or stenosis. TTE is highly sensitive or specific for evaluation of endocarditis especially for echodensities less than 1 cm in size. If clinical suspicion persists further evaluation is suggested with SHANIKA SHANIKA previously not completed due to source of infection identified and no evidence of vegetation or mobile echodensities were noted on TTE, however, given reoccurrence of positive blood cultures will consider proceeding with SHANIKA for evaluation for possible endocarditis as source of bacteremia on outpatient basis JANAK-Resolved Creatinine 2.2-0.8 Pulmonary embolism CTA chest positive for right lower lobe PE. Continue xarelto 15 mg twice daily for 21 days followed by 20 mg once daily History of A-fib Currently normal sinus rhythm Continue Xarelto CV summary 03/12/2025: Patient is CV stable for discharge home. Please continue below listed medications and have patient follow-up in cardiology clinic in 1 to 2-week for reevaluation. Consider SHANIKA on outpatient basis. Cardiac meds: Xarelto 15 mg p.o. twice daily for 21 days then 20 mg daily Plavix 75 mg p.o. daily Imdur 90 mg p.o. daily Ranexa 1000 mg p.o. twice daily Metoprolol succinate 100 mg p.o. daily Irbesartan 150 mg p.o. daily Lasix 40 mg p.o. daily Norvasc 2.5 mg p.o. daily Protonix 40mg po daily.
[2025-03-12 09:10] LABS: C-Reactive Protein 55.6 mg/L (0-4)
[2025-03-12 09:21] LABS: Procalcitonin 0.520 ng/mL (0.0-2.0)
[2025-03-12] MEDS: FUROSEMIDE 40 MG TABLET PO (09:49)
[2025-03-12] MEDS: CLOPIDOGREL 75MG TAB 75 MG PO (09:49)
[2025-03-12] MEDS: AMLODIPINE 2.5MG TABLET 2.5 MG PO (09:49)
[2025-03-12] MEDS: ISOSORBIDE MONO 60MG TAB.ER.24H 90 MG PO (09:49)
[2025-03-12] MEDS: IRBESARTAN 150MG TAB 150 MG PO (09:50)
[2025-03-12] MEDS: RANOLAZINE 500MG ER TABLET 1000 MG PO (09:51)
[2025-03-12] MEDS: NICOTINE 21MG/24HR PATCH 21 MG TD (10:07)
--- NOTE | 2025-03-12 10:22 | HMH.PHAAMS2 ---
- Antimicrobial Stewardship Review culture & sensitivity review Stewardship interventions: culture & sensitivity review, reviewed - no change Comments: REPEAT BLOOD CX NO GROWTH AT 24 HR, INITIAL BLOOD CX PENDING, PATIENT CURRENTLY ON ZYVOX FOR MRSA BACTEREMIA, WBC WNL AT 8.4 K/mm3, AFEBRILE OVER 24 HR.
[2025-03-12] MEDS: LINEZOLID 600 MG TABLET PO (11:13)
--- NOTE | 2025-03-12 11:19 | P.DS_ITS ---
General Admission date:: 03/07/25 HPI HPI HPI: Mr. Thurman is a 69-year-old male with history of heart failure with reduced ejection fraction, A-fib, AICD, COPD, tobacco dependence, hyperlipidemia, hypertension, and recent left heart cath on 12/31 with placement of 3 stents. He presented to the ER today with worsening shortness of breath over the past few days. Developed fever today.. States he has been more fatigued. Denies body aches. No nausea or vomiting. No dysuria. No rash. No diarrhea. On arrival to the ER, he was noted to have a white count of 12, kidney function abnormal with a BUN of 39, creatinine 2.2. Up from baseline of 1.0. Fever of 101.4 in the ER. BNP elevated at 3600, potassium 5.8. Stable on room air but tachypneic. Troponin also noted to be elevated at 1.7. No tammy chest pain however. Chest CT performed identifying right lower lobe PE. No focal consolidation or pneumonia. Medicine consulted for admission in the setting of JANAK, NSTEMI, SIRS and PE. I Agreed to admit for further care. He was given albuterol, insulin and D50 for his hyperkalemia in the ER. On evaluation after arriving to the floor, will initiate 500 cc of LR over 2 hours due to JANAK and SIRS status. Also start heparin drip for PE. Patient reports compliance with Eliquis twice daily. Second troponin improved 1.4. No ischemic changes on EKG. placed on oxygen for comfort. Hospital Course Hospital Course Hospital Course: Mr. Thurman is a 69-year-old male with A-fib, SVT, HFrEF, LHC with JEANNE, GERD, COPD, obesity, tobacco dependence, PAD, CAD, and pacemaker. Presented to the ER with shortness of breath. Workup found SIRS, JANAK, PE, NSTEMI. Discussed case with ER physician, request admission for further treatment of SIRS while awaiting cultures and management of NSTEMI and JANAK. Severe sepsis, resolved MRSA bacteremia -I nitially met SIRS criteria with tachycardia, endorgan damage, tachypnea, fever. Blood culture positive for MRSA. Had similar infection 2 months ago that was thought to have resolved. ? Today WBC continues to be normal, procalcitonin normalized (peaked at 3.38), CRP 228 to 144 to 96 to 55. ? Three sets of blood cultures positive for MRSA, fourth blood culture NGTD 24 hours. ? Overall, MRSA bacteremia cleared with IV vancomycin. Cardiology planning for outpatient SHANIKA. ? Discharged with linezolid 600 mg twice daily for 14 more days. Will follow-up with cardiology, have SHANIKA positive for endocarditis will lengthen antibiotic regimen. ? Follow-up with cardiology within 1 week. #Right pulmonary embolism #NSTEMI, type II #Chest pain #GERD ? CTA on admission Revealing right lower lobe pulmonary embolism with no evidence of RV strain. ECHO also showed no RV strain. ? Initial troponin 1.78, down trended to 0.62. In the setting of recent PCI on 12/31/2024 with stents, and PE. ? Discussed with cardiology, will switch from Eliquis to rivaroxaban 15 mg twice daily for 21 days then 20 mg daily. ? Discussed with cardiology regarding patient's intermittent chest pains, increased Imdur to 30 mg 3 times daily, started amlodipine 5 mg, Lasix 40 mg daily. ? Ultimately, chest pains improved with Protonix. Patient has been having dyspepsia, belching in the setting of DAPT. ? Continue home aspirin, Plavix 75 mg, statin. #JANAK ? Improved with gentle IV fluids. #A-fib ? Continue home metoprolol succinate 100 mg, started rivaroxaban as above. #CAD Heart failure with reduced ejection fraction, EF 40% Hypertension Hyperlipidemia ? Left heart cath performed 12/31/2024. Patient received 3 contiguous stents to the RCA. - Echo obtained in December shows mild to moderate reduced LV, 40%. Severe hypokinesis of the distal and apical LV burgess. No valvular stenosis or regurgitation noted. ?Patient has dual-chamber ICD in place ? Continue home Plavix 75 mg, statin. #Tobacco use disorder #COPD with exacerbation ? Patient states he is a daily smoker approximately 1 PPD. - Continue home Trelegy. Continue DuoNebs every 6 hours. ? Started prednisone 40 mg daily for ongoing shortness of breath, wheezing. #Mood disorder: Continue Wellbutrin 150 mg daily. Total time spent on discharge: 32 minutes on chart review, counseling, documentation, and direct care with patient. Exam Data for Last 24 hours Vital signs and Labs for Last 24 Hours: Temp Pulse Resp BP Pulse Ox O2 Del Method O2 Flow Rate 97.6 F 62 20 144/65 H 92 L Room Air 1 03/12/25 08:01 03/12/25 11:08 03/12/25 08:01 03/12/25 08:01 03/12/25 11:08 03/12/25 11:08 03/11/25 12:02 FiO2 28 03/09/25 06:04 Laboratory Results - last 24 hr 03/11/25 20:08: Vancomycin Trough 14.3 H 03/12/25 04:53: WBC 8.4, RBC 3.89 L, Hgb 11.3 L, Hct 35.3 L, MCV 90.7, MCH 29.0, MCHC 32.0, RDW 15.5, Plt Count 273, MPV 10.0, Neut % (Auto) 76.5, Lymph % (Auto) 16.7, Mcpherson % (Auto) 5.7, Eos % (Auto) 0.2, Baso % (Auto) 0.1, Neut # (Auto) 6.4, Lymph # (Auto) 1.4, Mcpherson # (Auto) 0.5, Eos # (Auto) 0.0, Baso # (Auto) 0.0, Sodium 139, Potassium 4.3, Chloride 108 H, Carbon Dioxide 21 L, Anion Gap 14.3, BUN 25 H, Creatinine 1.10 D, Estimated Creat Clear 94, Estimated GFR 67, Est GFR ( Amer) 81 D, Glucose 117 H, Calcium 9.1, Total Bilirubin 0.3, AST 98 H D, ALT 81 H D, Alkaline Phosphatase 74, C-Reactive Protein 55.6 H D, Total Protein 7.3, Albumin 4.0, Globulin 3.3 H, Albumin/Globulin Ratio 1.2, Procalcitonin 0.520 I & O for Last 24 hours: Intake & Output 03/09/25 03/10/25 03/11/25 03/12/25 23:59 23:59 23:59 23:59 Intake Total 2319.633 / 2439.633 1730 / 1970 2054.675 / 2054.675 450 / 450 Output Total 1350 / 1750 1400 / 1400 1700 / 1700 400 / 400 Balance 969.633 / 689.633 330 / 570 354.675 / 354.675 50 / 50 Weight 100.153 kg 98.293 kg 102.24 kg 102.285 kg Microbiology Reports for the Last 24 Hours: Microbiology 03/11/25 08:15 Blood Blood Culture - Preliminary NO GROWTH AFTER 24 HOURS 03/11/25 08:00 Blood Blood Culture - Preliminary NO GROWTH AFTER 24 HOURS 03/09/25 18:18 Blood Blood Culture - Final 03/09/25 18:18 Blood - Right Aerobic Organism ID Result 1 - Final Not Reportable 03/09/25 18:18 Blood - Right Aerobic Organism ID Result 2 - Final Not Reportable 03/09/25 18:18 Blood - Right Aerobic Organism ID Result 3 - Final Not Reportable 03/09/25 18:18 Blood - Right Aerobic Organism ID Result 4 - Final Not Reportable 03/09/25 18:18 Blood - Right Antimicrobic Susceptibility - Final Not Reportable 03/09/25 18:13 Blood - Other Aerobic Organism ID Result 1 - Final Not Reportable 03/09/25 18:13 Blood - Other Aerobic Organism ID Result 2 - Final Not Reportable 03/09/25 18:13 Blood - Other Aerobic Organism ID Result 3 - Final Not Reportable 03/09/25 18:13 Blood - Other Aerobic Organism ID Result 4 - Final Not Reportable 03/09/25 18:13 Blood - Other Antimicrobic Susceptibility - Final Not Reportable 03/09/25 18:13 Blood Blood Culture - Final 03/08/25 18:19 Blood Blood Culture - Final 03/08/25 18:19 Blood - Right Aerobic Organism ID Result 1 - Final Not Reportable 03/08/25 18:19 Blood - Right Aerobic Organism ID Result 2 - Final Not Reportable 03/08/25 18:19 Blood - Right Aerobic Organism ID Result 3 - Final Not Reportable 03/08/25 18:19 Blood - Right Aerobic Organism ID Result 4 - Final Not Reportable 03/08/25 18:19 Blood - Right Antimicrobic Susceptibility - Final Not Reportable 03/08/25 18:16 Blood - Other Aerobic Organism ID Result 1 - Final Not Reportable 03/08/25 18:16 Blood - Other Aerobic Organism ID Result 2 - Final Not Reportable 03/08/25 18:16 Blood - Other Aerobic Organism ID Result 3 - Final Not Reportable 03/08/25 18:16 Blood - Other Aerobic Organism ID Result 4 - Final Not Reportable 03/08/25 18:16 Blood - Other Antimicrobic Susceptibility - Final Not Reportable 03/08/25 18:16 Blood Blood Culture - Final 03/07/25 14:45 Blood Blood Culture - Final Gram Positive Cocci 03/07/25 14:25 Blood Blood Culture - Final Gram Positive Cocci 03/07/25 14:45 Blood - Right Aerobic Organism ID Result 1 - Final Not Reportable 03/07/25 14:45 Blood - Right Aerobic Organism ID Result 2 - Final Not Reportable 03/07/25 14:45 Blood - Right Aerobic Organism ID Result 3 - Final Not Reportable 03/07/25 14:45 Blood - Right Aerobic Organism ID Result 4 - Final Not Reportable 03/07/25 14:45 Blood - Right Antimicrobic Susceptibility - Final Not Reportable 03/07/25 14:25 Blood - Other Aerobic Organism ID Result 1 - Final Not Reportable 03/07/25 14:25 Blood - Other Aerobic Organism ID Result 2 - Final Not Reportable 03/07/25 14:25 Blood - Other Aerobic Organism ID Result 3 - Final Not Reportable 03/07/25 14:25 Blood - Other Aerobic Organism ID Result 4 - Final Not Reportable 03/07/25 14:25 Blood - Other Antimicrobic Susceptibility - Final Not Reportable Constitutional Constitutional: no acute distress *Routine Respiratory Exam Respiratory: Present CTA bilaterally and symmetric chest movement *Routine Cardiovascular Exam Cardiovascular: Present RRR, Normal S1 and Normal S2 *Routine Abdominal Exam Abdominal: Present soft and normoactive bowel sounds; Absent tenderness *Routine Extremities Exam Extremities: Present full ROM and normal capillary refill; Absent edema *Routine Skin Exam Skin: Present intact, dry and warm Detailed Neck Exam: Thyroids Thyroid: Absent bruit Results Data Completed and Pending Labs on day of discharge: Labs from last 24 hours 03/12/25 03/11/25 04:53 20:08 WBC 8.4 RBC 3.89 L Hgb 11.3 L Hct 35.3 L MCV 90.7 MCH 29.0 MCHC 32.0 RDW 15.5 Plt Count 273 MPV 10.0 Neut % (Auto) 76.5 Lymph % (Auto) 16.7 Mcpherson % (Auto) 5.7 Eos % (Auto) 0.2 Baso % (Auto) 0.1 Neut # (Auto) 6.4 Lymph # (Auto) 1.4 Mcpherson # (Auto) 0.5 Eos # (Auto) 0.0 Baso # (Auto) 0.0 Sodium 139 Potassium 4.3 Chloride 108 H Carbon Dioxide 21 L Anion Gap 14.3 BUN 25 H Creatinine 1.10 D Estimated Creat Clear 94 Estimated GFR 67 Est GFR ( Amer) 81 D Glucose 117 H Calcium 9.1 Total Bilirubin 0.3 AST 98 H D ALT 81 H D Alkaline Phosphatase 74 C-Reactive Protein 55.6 H D Total Protein 7.3 Albumin 4.0 Globulin 3.3 H Albumin/Globulin Ratio 1.2 Procalcitonin 0.520 Vancomycin Trough 14.3 H Preliminary micro results at discharge 03/11/25 08:15 Blood Culture - Preliminary Blood NO GROWTH AFTER 24 HOURS 03/11/25 08:00 Blood Culture - Preliminary Blood NO GROWTH AFTER 24 HOURS DS: Diagnosis Discharge Diagnosis (1) Bacteremia due to methicillin resistant Staphylococcus aureus: Status: Acute Code(s): R78.81 - Bacteremia; B95.62 - Methicillin resistant Staphylococcus aureus infection as the cause of diseases classified elsewhere (2) Pulmonary embolism: Status: Acute Code(s): I26.99 - Other pulmonary embolism without acute cor pulmonale (3) HFrEF (heart failure with reduced ejection fraction): Status: Acute Code(s): I50.20 - Unspecified systolic (congestive) heart failure (4) COPD (chronic obstructive pulmonary disease): Status: Chronic Code(s): J44.9 - Chronic obstructive pulmonary disease, unspecified Qualifiers: COPD type: emphysema Emphysema type: other Qualified Code(s): J43.8 - Other emphysema (5) CAD (coronary artery disease): Status: Chronic Code(s): I25.10 - Atherosclerotic heart disease of [place] coronary artery without angina pectoris Qualifiers: Associated angina: with stable angina Coronary Disease-Associated Artery/Lesion type: [place] artery [place] vs. transplanted heart: [place] heart Qualified Code(s): I25.118 - Atherosclerotic heart disease of [place] coronary artery with other forms of angina pectoris (6) Essential hypertension: Status: Chronic Code(s): I10 - Essential (primary) hypertension (7) PAF (paroxysmal atrial fibrillation): Status: Acute Code(s): I48.0 - Paroxysmal atrial fibrillation (8) Generalized weakness: Status: Acute Code(s): R53.1 - Weakness Meds Home Medications and Allergies Home Medications ?Medication ?Instructions ?Recorded ?Confirmed ?Type aspirin 81 mg tablet,delayed 81 mg PO DAILY 04/10/17 1 05/08/24 History release (Adult Low Dose Aspirin) bupropion HCl 150 mg tablet,12 hr 150 mg PO DAILY 03/2503/07/25 History sustained-release Held on 03/12/25. Instructions: Resume on 03/27/25. fluticasone fur. 100 mcg-umeclid 1 inh inhalation ROSE Y 10/19/21 03/07/25 History 62.5 mcg-vilant 25 mcg inhalat.powder (Trelegy Ellipta) nitroglycerin 0.4 mg sublingual 0.4 mg sublingual Q5MI [employer] PRN chest 09/17/23 03/07/25 History tablet (Nitrostat) pain ranolazine 1,000 mg 1,000 mg PO BID 12/29/24 History tablet,extended release,12 hr clopidogrel 75 mg tablet 75 mg PO DAILY 30 days #30 t abs 12/30/24 03/07/25 Rx metoprolol succinate 100 mg 100 mg PO HS 30 days #30 t abs 12/30/24 03/07/25 Rx tablet,extended release 24 hr empagliflozin 10 mg tablet 10 mg PO DAILY 30 days #30 tabs 01/12/25 03/07/25 Rx (Jardiance) olmesartan 20 mg tablet 20 mg PO DAILY #30 tabs 11/0 09/1603/07/25 Rx amlodipine 2.5 mg tablet 2.5 mg PO DAILY 30 days #30 tabs 03/12/25 Rx bupropion HCl 75 mg tablet 75 mg PO DAILY #7 tabs 02/22 12/17 Rx furosemide 40 mg tablet 40 mg PO DAILY 30 days #30 t abs 03/12/25 Rx isosorbide mononitrate 60 mg 90 mg (1.5 x 60 mg) PO DA WILLIAM 30 03/12/25 Rx tablet,extended release 24 hr days #45 tabs linezolid 600 mg tablet 600 mg PO BID 14 days #28 ta bs 03/12/25 Rx nicotine 21 mg/24 hr daily 21 mg transdermal DAILY #28 ea 03/12/25 Rx transdermal patch pantoprazole 40 mg tablet,delayed 40 mg PO DAILY #30 t abs 03/12/25 Rx release rivaroxaban 15 mg (42)-20 mg (9) See Rx Instructions P O .COMPLEX 03/12/25 Rx tablets in a starter pack (Xarelto #51 tabs DVT-PE Treatment 30-Day Starter) New Prescriptions to Start Prescriptions: amlodipine Bryan,Javan bupropion HCl Bryan,Javan furosemide Bryan,Javan isosorbide mononitrate Bryan,Javan linezolid Bryan,Javan nicotine Bryan,Javan pantoprazole Bryan,Javan rivaroxaban [Xarelto DVT-PE Treat 30d Start] Javan Adams Allergies Allergy/AdvReac Type Severity Reaction Status Date / Time rosuvastatin (From Crestor) Allergy Mild Back Pain Verified 02/02/25 15:03 Discharge Plan Disposition Patient Disposition: Home, Self-Care Condition: Good Discharge Order Discharge Orders: Discharge Order (Routine); Ordered 03/12/25 Ordered By: Javan Adams Follow up Plan Follow up with: Farzaneh Garvin APRN [Nurse Practitioner, Cardiology] - 03/22/25 11:00 am WM Iain Morrison MD [Primary Care Provider, Medical] - 03/23/25 10:20 am Prescriptions/Medication Reconciliation: New furosemide 40 mg Tablet 40 mg PO DAILY 30 Days Qty: 30 0RF amlodipine 2.5 mg Tablet 2.5 mg PO DAILY 30 Days Qty: 30 0RF isosorbide mononitrate 60 mg Tablet Extended Release 24 Hr 90 mg PO DAILY 30 Days Qty: 45 0RF nicotine 21 mg/24 hr Patch 24 Hour 21 mg transdermal DAILY Qty: 28 0RF pantoprazole 40 mg Tablet,Delayed Release (Dr/Ec) 40 mg PO DAILY Qty: 30 0RF Rx Instructions: Take on empty stomach every morning with water. Wait 30 minutes to 1 hour for breakfast. bupropion HCl 75 mg tablet 75 mg PO DAILY Qty: 7 0RF Xarelto DVT-PE Treat 30d Start 15 mg (42)- 20 mg (9) tablets,dose pack See Rx Instructions .ROUTE .COMPLEX Qty: 51 0RF Rx Instructions: take one-15 mg tablet twice daily for 21 days, then one-20 mg tablet once daily; must take with meal/food linezolid 600 mg tablet 600 mg PO BID 14 Days Qty: 28 0RF Continued aspirin [Adult Low Dose Aspirin] 81 mg tablet,delayed release (DR/EC) 81 mg PO DAILY Trelegy Ellipta 100-62.5-25 mcg blister with device 1 inh IH DAILY olmesartan 20 mg tablet 20 mg PO DAILY Qty: 30 5RF ranolazine 1,000 mg tablet extended release 12 hr 1,000 mg PO BID clopidogrel 75 mg Tablet 75 mg PO DAILY 30 Days Qty: 30 0RF metoprolol succinate 100 mg Tablet Extended Release 24 Hr 100 mg PO HS 30 Days Qty: 30 0RF nitroglycerin [Nitrostat] 0.4 mg tablet, sublingual 0.4 mg sublingual Q5MINP PRN (Reason: chest pain) Rx Instructions: do not exceed 3 doses per episode Jardiance 10 mg Tablet 10 mg PO DAILY 30 Days Qty: 30 0RF Held bupropion HCl 150 mg tablet extended release 12 hr 150 mg PO DAILY Hold Instructions: Resume on 03/27/25. Discontinued isosorbide mononitrate 30 mg tablet extended release 24 hr 30 mg PO BID Qty: 30 2RF Eliquis 5 mg Tablet 5 mg PO BID Qty: 60 0RF Problem Reconciliation Problems Reviewed?: Yes Patient Discharge Instructions Additional Instructions: It is recommended that your new antibiotic Zyvox/linezolid not be taken with mood medications including bupropion. Therefore, I have reduced your dose of bupropion to 75 mg daily for the next 7 days to allow you to taper off this medication while you are taking Zyvox. Patient Instructions: Heart-Healthy Diet, DI for Pulmonary Embolism, DI for Sepsis in Adults, DI for Bacteremia in Adults Print Language: C[place] Providers Primary Care Provider: WM Iain Morrison Admit Provider: Rudi Westfall Attending Provider: Rudi Westfall
--- NOTE | 2025-03-15 11:09 | SW/DCPLANNER ---
Spoke with on the phone. Patient stated that he is doing good. Patient stated that he is aware of his upcoming appointments. Patient stated that he was able to get his new medicine picked up from [facility]. Patient stated that he has no concerns or questions at this time. Uriah Varma
== END 2025-03-12 14:15 | disposition home or self-care (01) | DRG 871 ==
LOC: ER 16:54 → 2ND 17:24 → ICU 03-11 06:10
PROVIDERS: Nurse Practitioner Acute Care; Physician Assistant; Student in an Organized Health Care Education/Training Program; Admitting Provider Internal Medicine Adolescent Medicine; Emergency Provider Student in an Organized Health Care Education/Training Program; PCP Family Medicine; Visit Provider Internal Medicine Adolescent Medicine
DX: A41.9 Sepsis, unspecified organism (principal); I26.99 Other pulmonary embolism without acute cor pulmonale; N17.9 Acute kidney failure, unspecified; J44.1 Chronic obstructive pulmonary disease with (acute) exacerbation; I50.22 Chronic systolic (congestive) heart failure; E87.1 Hypo-osmolality and hyponatremia; I5A Non-ischemic myocardial injury (non-traumatic); R65.20 Severe sepsis without septic shock; E78.2 Mixed hyperlipidemia; E87.5 Hyperkalemia; B95.62 Methicillin resistant Staphylococcus aureus infection as the cause of diseases classified elsewhere; K21.9 Gastro-esophageal reflux disease without esophagitis; E66.9 Obesity, unspecified; F39 Unspecified mood [affective] disorder; I11.0 Hypertensive heart disease with heart failure; F17.210 Nicotine dependence, cigarettes, uncomplicated; I48.0 Paroxysmal atrial fibrillation; Z95.810 Presence of automatic (implantable) cardiac defibrillator; Z95.5 Presence of coronary angioplasty implant and graft; Z79.01 Long term (current) use of anticoagulants; Z79.51 Long term (current) use of inhaled steroids; Z79.82 Long term (current) use of aspirin; Z79.02 Long term (current) use of antithrombotics/antiplatelets
CPT/HCPCS: 0223U; 36415; 71045; 71046; 71275; 74177; 80048; 80053; 80202; 81001; 82803; 82962; 83605; 83690; 83735; 83880; 84145; 84484; 85025; 85610; 85651; 85730; 86140; 87040; 87077; 87154; 87506; 87631; 93005; 93308; 94640; 94761; 99285; J0692; J1171; J1450; J1644; J1938; J2270; J2470; J3373; J3375; J7030; J7050; J7120; Q9967